=== PATIENT | female | born 1945 ===

== ENCOUNTER → 2017-10-17 | Day surgery (SDC) | payer OTHER ==
[2017-09-06 13:30] VITALS: Ht 161.3 cm; Wt 63.6 kg
[~2017-10-17] VITALS: Ht 161.3 cm; Wt 63.6 kg
[~2017-10-17] MED LIST: 500ML BSS 0.3ML EPI 1:1000PF IRRIG ONE; ACETAMINOPHEN 325 MG TAB PO PRN; AMVISC PLUS 0.8ML SYRINGE INT OCU ONE; ASPI81TA28 PO; ATOR-22 PO; ATROPINE SULFATE 0.1 MG/ML 5ML SYR IV PRN; BSS FLUSH ONE; CALC1TAB56 PO; EpHEDrine SULFATE INJ 50 MG/ML AMP IV PRN; EpINEphrine INJ 1MG/ML AMP 1 MG/ML AMP ONE; FLUT0.15; GLUCTAB7 PO; LACTATED RINGER'S 1000ML 500 ML IV SCH; LEVO88TA3 PO; LIDOCAINE 3.5% OPH GEL PER APPLICATION CHARGE ONE; LIDOCAINE HCL 1% MPF 2 ML VIAL ONE; MIDAZOLAM HCL 1 MG/ML 2ML VIAL ONE; MULTTAB58 PO; ONDANSETRON INJ 2 MG/ML 2 ML VIAL ONE; POVIDONE-IODINE OP SOLN 30 ML BTL ONE; PROPARACAINE 0.5% OP SOLN PER DROP CHARGE OPR SCH; SODIUM CHLORIDE 0.9% 500ML IV SCH; TOBRAMYCIN/DEXAMETHASONE OPH OINT PER APPLN CHARGE ONE
[2017-10-17] MEDS: PHENYLEPHRINE HCL 2.5% OP SOLN PER DROP CHARGE OPR SCH ×2 (09:25→09:30)
[2017-10-17] MEDS: TROPICAMIDE 1% OP SOLN PER DROP CHARGE OPR SCH ×2 (09:26→09:31)
[2017-10-17] MEDS: CYCLOPENTOLATE HCL 1% OP SOLN PER DROP CHARGE OPR SCH ×2 (09:27→09:32)
[2017-10-17] MEDS: KETOROLAC 0.5% OP SOLN PER DROP CHARGE OPR SCH ×2 (09:28→09:33)
[2017-10-17] MEDS: GATIFLOXACIN OP SOLN PER DROP CHARGE OPR SCH ×2 (09:29→09:40)
--- NOTE | 2017-10-17 10:18 | History & Physical Bridge - SC ---
H&P Re-Evaluation Bridge Note: I have examined the patient, reviewed the History & Physical and in the interval since the performance of the History & Physical I have noted the following changes of clinical significance: Diagnosis: Right Cataract Procedure: Right Cataract Removal with Lens Implant No changes noted
--- NOTE | 2017-10-17 10:57 | [facility] Operative Report ---
Operative Report Date of Service Oct 17, 2017. Operative Report 1. PREOPERATIVE DIAGNOSIS: Cataract of the right eye. 2. POSTOPERATIVE DIAGNOSIS: Same. 3. PROCEDURE: Phacoemulsification with intraocular lens implantation of the right eye. SURGEON: Dr. Jordan Andres. ANESTHESIA: Topical Lidocaine gel, 1% Non- Preserved intracameral Lidocaine, and monitored intravenous sedation. INDICATIONS FOR THE PROCEDURE: The patient is a 72 - year-old female with a history of cataract of the right eye causing significant visual impairment. The details of the proposed procedure were explained to the patient who asked appropriate questions and following discussion of all risks, benefits and alternatives agreed to have the procedure done. 4. OPERATION AND FINDINGS: DESCRIPTION OF PROCEDURE: After informed consent was obtained, the patient was brought to the Operating Room at the [facility]. The patient was placed in a supine position and then the right eye was prepped and draped in the usual sterile fashion for intraocular surgery. A drop of topical Lidocaine gel was placed in the operative eye. A wire lid speculum was then placed in the fornices. A corneal paracentesis was then created temporally. The Non-Preserved Lidocaine was then instilled into the anterior chamber. The anterior chamber was then pressurized with viscoelastic. A 2.0 mm clear corneal incision was then created temporally. A cystotome was inserted into the anterior chamber and used to create a tear in the anterior lens capsule. This capsular tear was then used to create a small flap and the flap was dragged in a counterclockwise direction in order to create a continuous curvilinear capsulorrhexis. Hydrodissection was accomplished with balanced salt solution. Phacoemulsification of the lens nucleus was then performed in a standard [id number] technique. The phaco time was 15 seconds with an average power of 12 %. The remaining cortical material was removed using irrigation aspiration. The capsular bag was then filled with viscoelastic. A [employer] Lomb MI60L +14.0 diopters lens was then loaded into the injector and injected into the capsular bag. The remaining viscoelastic was removed with the irrigation aspiration handpiece. The wound was hydrated and then checked and found to be watertight. The intraocular pressure was checked and found to be adequate. The wire lid speculum was removed and the patient's face was cleaned and dried. TobraDex ointment was placed in the inferior fornix. The patient was discharged to the Recovery Room having tolerated the procedure well. There were no complications. The patient will be seen tomorrow in the office for follow-up. I attest to the content of the Intraoperative Record and any orders documented therein. Any exceptions are noted below.
--- NOTE | 2017-10-17 10:58 | Discharge Instructions-SurgCtr ---
Discharge Instructions Date of Service Oct 17, 2017. Visit Reason for Visit: Cataract Right Eye Discharge Discharge Diagnosis / Problem: cataract Discharge Goals Goal(s): Improve function Medications Stopped Medications Name(s): ASA Last dose on Activity Recommendations Activity Limitations: per Instructions/Follow-up section Anesthesia . Post Anesthesia Instructions: If you have had General Anesthesia or IV Sedation: * Do not drive today. * Resume driving when surgeon permits. * Do not make important decisions or sign legal documents today. * Call surgeon for: 1. Temperature elevations greater than 101 degrees F. 2. Uncontrollable pain. 3. Excessive bleeding. 4. Persistent nausea and vomiting. 5. Medication intolerance (nausea, vomiting or rash). * For nausea and vomiting use only clear liquids such as: tea, soda, bouillon until nausea subsides, then gradually increase diet as tolerated. * If you have any concerns or questions, call your surgeon's office. If physician is unavailable and it is an emergency, call 911 or go to the nearest emergency room. . Diet Recommendations Home Diet: resume previous diet Procedures Procedures Performed: Right Cataract Phacoemulsification With Intraocular Lens Implant Pending Studies Studies pending at discharge: no Medical Emergencies . Who to Call and When: Medical Emergencies: If at any time you feel your situation is an emergency, please call 911 immediately. . Non-Emergent Contact Non-Emergency issues call your: Adjunct Instructor Of Women'[employer] Studies . . "Provider Documentation" section prepared by Jordan Andres. .
[2017-10-17 10:59] VITALS: TEMP 36.6
--- NOTE | 2017-10-17 11:16 | Anesthesiology Progress Note ---
Anesthesia Post Op Note Date & Time Oct 17, 2017 at 11:16 Vital Signs Pain Intensity: 0 Vital Signs Past 12 Hours Date Time Temp Pulse Resp B/P (MAP) Pulse Ox O2 Delivery O2 Flow Rate FiO2 10/17/17 10:59 36.6 82 12 108/72 (84) 96 Room Air 10/17/17 09:20 36.9 82 18 150/86 (107) 97 Room Air Notes Mental Status: alert / awake / arousable, participated in evaluation Pt Amnestic to Procedure: Yes Nausea / Vomiting: adequately controlled Pain: adequately controlled Airway Patency, RR, SpO2: stable & adequate BP & HR: stable & adequate Hydration State: stable & adequate Anesthetic Complications: no major complications apparent
[2017-10-17 11:26] VITALS: BP 117/77; PULSE 78; O2SAT 96
== END | disposition home or self-care (01) ==
LOC: X.SURG 08:45
PROVIDERS: ATTEND Ophthalmology
DX: H26.9 Unspecified cataract (principal); J45.909 Unspecified asthma, uncomplicated; M19.90 Unspecified osteoarthritis, unspecified site; E03.9 Hypothyroidism, unspecified; E78.5 Hyperlipidemia, unspecified; Z95.0 Presence of cardiac pacemaker; Z79.899 Other long term (current) drug therapy; Z79.82 Long term (current) use of aspirin

== ENCOUNTER 2022-10-04 21:00 | Observation (INO) ==
[2022-10-04 22:15] LABS: Basophils # (auto) 0.05 K/uL (0-0.2); Basophils % (auto) 0.7 %; Eosinophils # (auto) 0.25 K/uL (0-0.50); Eosinophils % (auto) 3.3 %; Hematocrit (blood only) 41.8 % (37.0-47.0); Hemoglobin 14.6 g/dl (12.0-16.0); Immature Granulocytes # (auto) 0.01 K/uL (0.01-0.20); Immature Granulocytes % (auto) 0.1 %; Lymphocytes # (auto) 1.18 K/uL (1.2-3.4); Lymphocytes % (auto) 15.4 %; Mean Corpuscular Hemoglobin 31.6 pg (25.0-34.0); Mean Corpuscular Hgb Conc 34.9 g/dL (32.0-36.0); Mean Corpuscular Volume 90.5 fL (80.0-100.0); Mean Platelet Volume 10.6 fL (9.4-12.4); Monocytes # (auto) 0.52 K/uL (0.11-0.59); Monocytes % (auto) 6.8 %; Neutrophils # (auto) 5.63 K/uL (1.40-6.50); Neutrophils % (auto) 73.7 %; Platelet Count 165 K/uL (130-400); RDW Coefficient of Variation 13.3 % (11.5-14.5); RDW Standard Deviation 44.3 fL (36.4-46.3); Red Blood Count 4.62 M/uL (4.20-5.40); White Blood Count 7.64 K/ul (4.8-10.8)
[2022-10-04 22:24] LABS: Albumin Globulin Ratio 1.4 (0.9-2); Albumin Level 4.6 gm/dl (3.4-5.0); BUN Creatinine Ratio 16.3 (10-20); Bilirubin,Total 0.8 mg/dl (0.2-1.0); Calcium 9.7 mg/dl (8.6-10.3); Creatinine Clr Calc Pharmacy 51.2 ml/min; Est GFR (African American) 76.1 ml/min; Est GFR (Non-African American) 65.6 ml/min; Globulin 3.2 gm/dl (2.5-4.0); Potassium 3.7 mmol/L (3.5-5.1); Total Protein 7.8 gm/dl (6.0-8.3)
--- NOTE | 2022-10-04 22:36 | Emergency Department Note ---
History of Present Illness General Chief complaint: Syncope (Near Syncope) Stated complaint: HOT,SWEATY,DIZZY,HAD PACEMAKER WORKED ON Time Seen by Provider: 10/04/22 22:04 History of Present Illness This is a 77-year-old female presenting to the emergency department for evaluation of lightheadedness and near syncope. Patient has a history of similar symptoms in the past and has a pacemaker in place. The pacemaker was placed 10 or 11 years ago, and battery was at end-of-life. She had the battery replaced earlier today at this facility by Dr. Susana Hamilton. The patient did well perioperative phase and was discharged home. The patient ate dinner this evening around 7 PM and reports having a roughly 5-minute episode where she felt like she may faint. This has resolved on arrival to the ER. Patient has not had any known fevers or chills today. She feels like she is breathing as normal. She has some soreness at the surgical site where the battery was replaced, but no other distinct pains. Home Medications Medication Instructions Recorded Confirmed Type aspirin 81 mg chewable tablet 81 mg PO QAM 10/25/17 10/04/22 History fluticasone propionate 50 2 spray intranasal QAM 10/25/17 10/04/22 History mcg/actuation nasal spray,suspension (Flonase Allergy Relief) multivitamin 1 tab PO DAILY 10/25/17 10/04/22 History atorvastatin 40 mg tablet 40 mg PO QAM 10/04/22 10/04/22 History calcium carbonate 600 mg-vitamin 1 cap PO DAILY 10/04/22 10/04/22 History D3 12.5 mcg (500 unit) capsule (Calcium 600 with Vitamin D3) ibuprofen 200 mg tablet 200 mg PO Q6H PRN Pain 10/04/22 10/04/22 History levothyroxine 75 mcg tablet 75 mcg PO DAILYBB 10/04/22 10/04/22 History loratadine 10 mg capsule 10 mg PO QAM 10/04/22 10/04/22 History Allergies Allergy/AdvReac Type Severity Reaction Status Date / Time No Known Drug Allergies Allergy Unknown . 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 Brasher (device at home checking device) Purple Blue Botronic Syncope Surgical History History of cataract surgery rt eye History of colonoscopy History of open reduction and internal fixation (ORIF) procedure left tib/fib History of tonsillectomy History of tooth extraction Family History Mother Family history of diabetes mellitus Brother Family history of diabetes mellitus Other Family hx of colon cancer Social History Smoking Status: Never smoker Second Hand Exposure: No; Do You Dip or Chew Tobacco: No; Hx Alcohol Use: No Hx Substance Use: No Preferred Language: Trinidadian Communication Ability: Effective [employer]aling [employer] Operator Required: No Beliefs That Will Affect Care: None Current Living Situation: Alone Other Information That Helps Us Care for You: No Feels Safe at Home: Yes Safety Concerns: Feels Safe At This Time Assistive Devices: None Review of Systems A total of 10 systems reviewed and were otherwise negative Physical Exam Vital Signs Vital Signs - 24 hr 10/04/22 21:54 10/04/22 21:53 10/04/22 21:53 Pulse Rate 72 74 Pulse Rate [Apical] 75 Pulse Rate from SpO2 Sensor 74 Pulse Rhythm [Apical] Regular Pulse Strength [Apical] Normal Respiratory Rate 19 20 Respiratory Effort / Characteristics Non-Labored Respiratory Depth Normal Respiratory Pattern Regular Blood Pressure Blood Pressure [Right Arm] 164/86 H Blood Pressure Mean Blood Pressure Mean [Right Arm] 112 Blood Pressure Position [Right Arm] Sitting Pulse Oximetry 96 96 Oxygen Delivery Method Room Air 10/04/22 22:00 10/04/22 22:30 10/04/22 23:01 Pulse Rate 78 72 Pulse Rate [Apical] Pulse Rate from SpO2 Sensor 75 72 Pulse Rhythm [Apical] Pulse Strength [Apical] Respiratory Rate 17 16 Respiratory Effort / Characteristics Non-Labored Respiratory Depth Normal Respiratory Pattern Blood Pressure 145/82 H Blood Pressure [Right Arm] Blood Pressure Mean 103 Blood Pressure Mean [Right Arm] Blood Pressure Position [Right Arm] Pulse Oximetry 96 95 Oxygen Delivery Method 10/04/22 23:09 10/04/22 23:30 Pulse Rate 77 78 Pulse Rate [Apical] Pulse Rate from SpO2 Sensor 77 80 Pulse Rhythm [Apical] Pulse Strength [Apical] Respiratory Rate 20 19 Respiratory Effort / Characteristics Respiratory Depth Respiratory Pattern Blood Pressure 146/93 H 136/98 Blood Pressure [Right Arm] Blood Pressure Mean 110 110 Blood Pressure Mean [Right Arm] Blood Pressure Position [Right Arm] Pulse Oximetry 95 94 Oxygen Delivery Method VITALS: Vitals are noted on the nurse's note and reviewed by myself. Vital signs stable. GENERAL: Well-developed, well-nourished, white female, who is in no acute distress and resting comfortably. Patient is cooperative with the examination. HEAD: Normocephalic atraumatic. NECK: Supple without nuchal rigidity. No lymphadenopathy. No thyromegaly. Cervical spine is nontender. HEART: Regular rate and rhythm without murmurs gallops or rubs. LUNGS: Clear to auscultation bilaterally without wheezes, rales or rhonchi. No retractions or accessory muscle use. ABDOMEN: Positive normal bowel sounds x 4. Soft, nontender, without masses or organomegaly. No guarding or rebound tenderness. MUSCULOSKELETAL: No muscle atrophy, erythema, or edema noted. Full range of motion in all extremities. Course Administered Medications Discontinued Medications Acetaminophen (Acetaminophen 325 Mg Tab) 650 mg PO Q4H PRN PRN Reason: Pain or Fever Stop: 11/04/22 00:46 Last Admin: 10/05/22 09:17 Dose: 650 mg Documented By: MAXINE Aspirin (Aspirin 81 Mg Ectab) 81 mg PO [facility] Stop: 11/04/22 08:59 Last Admin: 10/05/22 09:15 Dose: 81 mg Documented By: MAXINE Atorvastatin Calcium (Atorvastatin 40 Mg Tab) 40 mg PO [facility] Stop: 11/04/22 08:59 Last Admin: 10/05/22 09:15 Dose: 40 mg Documented By: MAXINE Calcium/Vitamin D (Calcium 600mg + Vit D 400 Iu Tab) 1 tab PO DAILY [facility] Stop: 11/04/22 08:59 Last Admin: 10/05/22 09:15 Dose: 1 tab Documented By: MAXINE Fluticasone Propionate (Fluticasone Propionate Na Spr 16 Gm Btl) 2 sprays [facility] Stop: 11/04/22 08:59 Last Admin: 10/05/22 09:16 Dose: 2 sprays Documented By: MAXINE Sodium Chloride (Nss 1000ml) 1,000 mls @ 80 mls/hr IV .[id number] JACQUELYN Stop: 11/04/22 00:46 Last Infusion: 10/05/22 12:54 Dose: 0 mls/hr Documented By: Admin: 10/05/22 01:00 Dose: 80 mls/hr Documented By: MAGALY Levothyroxine Sodium (Levothyroxine Sodium 75 Mcg Tablet) 75 mcg PO DAILYBB [facility] Stop: 11/04/22 06:29 Last Admin: 10/05/22 05:38 Dose: 75 mcg Documented By: MAGALY Loratadine (Loratadine 10 Mg Tab) 10 mg PO QAM [facility] Stop: 11/04/22 08:59 Last Admin: 10/05/22 09:15 Dose: 10 mg Documented By: MAXINE Multivitamins (Multivitamin Tab) 1 tab PO DAILY JACQUELYN Stop: 11/04/22 08:59 Last Admin: 10/05/22 09:15 Dose: 1 tab Documented By: MAXINE Medical Decision Making Differential Diagnosis Differential diagnosis includes, but is not limited to: Myocardial infarction, dysrhythmia, pericarditis, pneumothorax, aortic aneurysm/dissection, DVT/PE, anxiety, GERD, PUD, electrolyte imbalance, thyroid disorder, pneumonia, bronchitis, pancreatitis, and others Laboratory Data 10/04/22 21:45 10/04/22 21:45 Lab Results 10/04/22 10/04/22 10/04/22 Range/Units 21:45 21:45 23:12 WBC 7.64 (4.8-10.8) K/ul RBC 4.62 (4.20-5.40) M/uL Hgb 14.6 (12.0-16.0) g/dl Hct 41.8 (37.0-47.0) % MCV 90.5 (80.0-100.0) fL MCH 31.6 (25.0-34.0) pg MCHC 34.9 (32.0-36.0) g/dL RDW Std Deviation 44.3 (36.4-46.3) fL RDW Coeff of Anitha 13.3 (11.5-14.5) % Plt Count 165 (130-400) K/uL MPV 10.6 (9.4-12.4) fL Immature Gran % (Auto) 0.1 % Neut % (Auto) 73.7 % Lymph % (Auto) 15.4 % Travis % (Auto) 6.8 % Eos % (Auto) 3.3 % Baso % (Auto) 0.7 % Neut # (Auto) 5.63 (1.40-6.50) K/uL Lymph # (Auto) 1.18 L (1.2-3.4) K/uL Travis # (Auto) 0.52 (0.11-0.59) K/uL Eos # (Auto) 0.25 (0-0.50) K/uL Baso # (Auto) 0.05 (0-0.2) K/uL Immature Gran # (Auto) 0.01 (0.01-0.20) K/uL Sodium 140 (136-145) mmol/L Potassium 3.7 (3.5-5.1) mmol/L Chloride 106 (98-107) mmol/L Carbon Dioxide 26 (21-32) mmol/L Anion Gap 8 (3-11) BUN 14 (6-23) mg/dl Creatinine 0.86 (0.6-1.2) mg/dl Est Cr Clr Drug Dosing 51.2 ml/min Est GFR ( Amer) 76.1 ml/min Est GFR (Non-Af Amer) 65.6 ml/min BUN/Creatinine Ratio 16.3 (10-20) Glucose 127 H (70-99(Fasting)) mg/dl Calcium 9.7 (8.6-10.3) mg/dl Total Bilirubin 0.8 (0.2-1.0) mg/dl AST 23 (13-39) U/L ALT 15 (7-52) U/L Alkaline Phosphatase 81 (34-104) U/L Troponin I High Sens 3.1 (0-14) pg/ml Total Protein 7.8 (6.0-8.3) gm/dl Albumin 4.6 (3.4-5.0) gm/dl Globulin 3.2 (2.5-4.0) gm/dl Albumin/Globulin Ratio 1.4 (0.9-2) Urine Color Yellow Urine Appearance Clear (Clear) Urine pH 6.0 (4.5-7.5) Ur Specific [place] 1.013 (1.000-1.030) Urine Protein Negative (Negative) Urine Glucose (UA) Negative (Negative) Urine Ketones Negative (Negative) Urine Blood Negative (Negative) Urine Nitrite Negative (Negative) Urine Bilirubin Negative (Negative) Urine Urobilinogen Negative (Negative) Ur Leukocyte Esterase Trace H (Negative) Urine WBC (Auto) 5-10 H (0-5) /hpf Urine RBC (Auto) 0-4 (0-4) /hpf U Hyaline Cast (Auto) 1-5 (0-5) /lpf U Epithel Cells (Auto) 20-30 H (0-5) /lpf Urine Bacteria (Auto) Negative (Negative) Imaging Data Radiologist's Impression: Chest X-Ray 10/04/22 22:49 XR chest 1V portable HISTORY: palpitations COMPARISON: None. FINDINGS: No pneumothorax. No pleural effusions. The cardiac silhouette is borderline enlarged. Is left-sided dual-chamber pacemaker. No focal lung consolidations to suggest a pneumonia. There is mild central pulmonary vascular congestion without overt edema. No acute fractures identified. IMPRESSION: Cardiomegaly with mild central pulmonary vascular congestion without overt edema. ACT 112: Negative or not required by law. Electronically signed by: Brett Duque M.D. 10/05/2022 7:11 AM MDM Narrative Physical exam and history were performed. Nursing notes, EMR, and Medication List were personally reviewed. No social concerns were identified as barriers to patients care. Patient appears to have lightheadedness versus near syncopal episode this evening around dinnertime. She did have the generator changed on her pacemaker earlier today. On arrival to the ER she does not appear toxic. Vital signs are stable. IV access was established and labs were obtained. EKG was without acute ST elevation. An order was placed for continuous cardiac monitoring. The monitor shows a rate of 72 with normal sinus rhythm. Patient's blood work is as above and was reviewed. She does not have a significantly elevated white blood cell count, gross anemia, bandemia, or significant electrolyte imbalance. Transaminases are not diagnostic. Troponin x 1 is negative. Case was discussed with the on-call [facility] it integration architect, Dr. Johnson, who recomm ends bringing the patient in for observation overnight. The cardiology team will be involved with the patient's care in the morning to generate additional recommendations. I did speak with the [facility] team who agreed to evaluate the patient here in the ER. Please see their dictation for further patient course, plan, disposition. The chart was completed utilizing [employer] Voice Recognition Software. Grammatical errors, random word insertions, pronoun errors, and incomplete sentences are an occasional consequence of this system due to software limitations, ambient noise, and hardware issues. Any formal questions or concerns about the content, text, or information contained within the body of this dictation should be directly addressed to the provider for clarification. . Impression & Plan Near syncope, Pacemaker Discharge Plan Visit Data Chief Complaint: Syncope (Near Syncope) Stated Complaint: HOT,SWEATY,DIZZY,HAD PACEMAKER WORKED ON ED Provider: Sai Smith ED Midlevel Provider: Ranjeet Ashford Discharge Problem: Near syncope, Pacemaker Patient Disposition: Admitted As Inpatient Discharge Instructions Interventions: ED Discharge Assessment Last Done: 10/05/22 00:24
[2022-10-04 23:10] LABS: Troponin I High Sensitivity 3.1 pg/ml (0-14)
--- NOTE | 2022-10-05 00:11 | History & Physical Report ---
Date of Service October 04, 2022 Assessment & Plan (1) Near syncope: Plan: 77-year-old female with past med significant for hypothyroidism, hyperlipidemia, prediabetes, chronic sinusitis, history of syncope and s/p pacemaker had battery change today for the pacemaker did fine and was discharged home and comes back with presyncope Near syncope S/p pacemaker battery change today History of syncope in the past for which she had pacemaker EKG looks okay Labs look okay Currently doing fine We will monitor on telemetry floor Follow repeat labs in a.m. Consult cardiology in a.m. Gentle fluids Check orthostatics N.p.o. until seen by cardiology Prediabetes We will check HbA1c levels Hypothyroidism on Synthyroid Hyperlipidemia on statin DVT prophylax SCDs Disposition observation telemetry floor Full code History of Present Illness Chief Complaint: Near syncope Primary Care Provider: Yamini Piper MD 77-year-old female with past med significant for hypothyroidism, hyperlipidemia, prediabetes, chronic sinusitis, history of syncope and s/p pacemaker had battery change today for the pacemaker did fine and was discharged home and comes back with presyncope. Patient says she ate a dinner after that she was sitting on chair when she felt like passing she laid on the bed but it did not improve she called her neighbor and the feeling of passing out lasted for 5 minutes. Next ext 15 minutes she felt like dizzy and of that she felt like the spaced out. By time she came to the ER symptoms subsided. She was able to ambulate in the ER room okay. Denies any chest pain except for some soreness at pacemaker site. No shortness of breath. No nausea. No sweating. No headaches. No blurred visions or earache or runny nose. No cough. No fevers. No abdominal. Normal bowel and bladder movements. Currently resting comfortably and hemodynamically stable. Allergies Allergy/AdvReac Type Severity Reaction Status Date / Time No Known Drug Allergies Allergy Unknown . Verified 10/04/22 07:27 Home Medications Medication Instructions Recorded Confirmed Type aspirin 81 mg chewable tablet 81 mg PO QAM 10/25/17 10/04/22 History fluticasone propionate 50 2 spray intranasal QAM 10/25/17 10/04/22 History mcg/actuation nasal spray,suspension (Flonase Allergy Relief) multivitamin 1 tab PO DAILY 10/25/17 10/04/22 History atorvastatin 40 mg tablet 40 mg PO QAM 10/04/22 10/04/22 History calcium carbonate 600 mg-vitamin 1 cap PO DAILY 10/04/22 10/04/22 History D3 12.5 mcg (500 unit) capsule (Calcium 600 with Vitamin D3) ibuprofen 200 mg tablet 200 mg PO Q6H PRN Pain 10/04/22 10/04/22 History levothyroxine 75 mcg tablet 75 mcg PO DAILYBB 10/04/22 10/04/22 History loratadine 10 mg capsule 10 mg PO QAM 10/04/22 10/04/22 History Past Med/Surg History Medical History Asthma as a child/no problems now Hyperlipidemia Hypothyroidism Migraine "flashing headaches" Osteoarthritis Pacemaker pacemaker implanted 2011/ d/t "low bp and passing out" followed by Dr. 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 ENT- oropharynx clear Neck- supple, no JVD. Lungs- clear to auscultation and percussion, no added sounds. Heart- regular rate rhythm; no murmur, no gallop. dressing seen at pacemaker site. Abdomen- normal bowel sounds, soft, nontender, no distension. Extremities- no pretibial edema, no erythema seen Neuro- alert, oriented x 3; PERRL, no facial palsy; no dysarthria;obeys commands and moves extremities. Skin- warm & dry Results & Data Results & Data Vital Signs (Past 12 Hours) Vital Signs Temp Pulse Pulse Resp BP BP Pulse Ox 10/04/22 22:30 72 16 145/82 H 95 10/04/22 22:00 78 17 96 10/04/22 21:53 74 20 96 10/04/22 21:53 72 10/04/22 21:54 75 19 164/86 H 96 10/04/22 21:13 36.3 C L 81 20 147/85 H 97 O2 Del Method 10/04/22 22:30 10/04/22 22:00 10/04/22 21:53 10/04/22 21:53 10/04/22 21:54 Room Air 10/04/22 21:13 Room Air Diagnostic Findings Laboratory Results WBC 7.64 K/ul (4.8-10.8) 10/04/22 21:45 RBC 4.62 M/uL (4.20-5.40) 10/04/22 21:45 Hgb 14.6 g/dl (12.0-16.0) 10/04/22 21:45 Hct 41.8 % (37.0-47.0) 10/04/22 21:45 MCV 90.5 fL (80.0-100.0) 10/04/22 21:45 MCH 31.6 pg (25.0-34.0) 10/04/22 21:45 MCHC 34.9 g/dL (32.0-36.0) 10/04/22 21:45 RDW Std Deviation 44.3 fL (36.4-46.3) 10/04/22 21:45 RDW Coeff of Anitha 13.3 % (11.5-14.5) 10/04/22 21:45 Plt Count 165 K/uL (130-400) 10/04/22 21:45 MPV 10.6 fL (9.4-12.4) 10/04/22 21:45 Immature Gran % (Auto) 0.1 % 10/04/22 21:45 Neut % (Auto) 73.7 % 10/04/22 21:45 Lymph % (Auto) 15.4 % 10/04/22 21:45 Moore % (Auto) 6.8 % 10/04/22 21:45 Eos % (Auto) 3.3 % 10/04/22 21:45 Baso % (Auto) 0.7 % 10/04/22 21:45 Neut # (Auto) 5.63 K/uL (1.40-6.50) 10/04/22 21:45 Lymph # (Auto) 1.18 K/uL (1.2-3.4) L 10/04/22 21:45 Moore # (Auto) 0.52 K/uL (0.11-0.59) 10/04/22 21:45 Eos # (Auto) 0.25 K/uL (0-0.50) 10/04/22 21:45 Baso # (Auto) 0.05 K/uL (0-0.2) 10/04/22 21:45 Immature Gran # (Auto) 0.01 K/uL (0.01-0.20) 10/04/22 21:45 Sodium 140 mmol/L (136-145) 10/04/22 21:45 Potassium 3.7 mmol/L (3.5-5.1) 10/04/22 21:45 Chloride 106 mmol/L (98-107) 10/04/22 21:45 Carbon Dioxide 26 mmol/L (21-32) 10/04/22 21:45 Anion Gap 8 (3-11) 10/04/22 21:45 BUN 14 mg/dl (6-23) 10/04/22 21:45 Creatinine 0.86 mg/dl (0.6-1.2) 10/04/22 21:45 Est Cr Clr Drug Dosing 51.2 ml/min 10/04/22 21:45 Est GFR ( Amer) 76.1 ml/min 10/04/22 21:45 Est GFR (Non-Af Amer) 65.6 ml/min 10/04/22 21:45 BUN/Creatinine Ratio 16.3 (10-20) 10/04/22 21:45 Glucose 127 mg/dl (70-99(Fasting)) H 10/04/22 21:45 Calcium 9.7 mg/dl (8.6-10.3) 10/04/22 21:45 Total Bilirubin 0.8 mg/dl (0.2-1.0) 10/04/22 21:45 AST 23 U/L (13-39) 10/04/22 21:45 ALT 15 U/L (7-52) 10/04/22 21:45 Alkaline Phosphatase 81 U/L (34-104) 10/04/22 21:45 Troponin I High Sens 3.1 pg/ml (0-14) 10/04/22 21:45 Total Protein 7.8 gm/dl (6.0-8.3) 10/04/22 21:45 Albumin 4.6 gm/dl (3.4-5.0) 10/04/22 21:45 Globulin 3.2 gm/dl (2.5-4.0) 10/04/22 21:45 Albumin/Globulin Ratio 1.4 (0.9-2) 10/04/22 21:45 ECG Additional Comments: ECG normal sinus rhythm rate 72. Possible left atrial enlargement. Incomplete right bundle branch block Code Status & VTE Plan VTE Prophylaxis Plan VTE Prophylaxis will be ordered: Yes
[2022-10-05 00:45] LABS: Appearance Urine Clear (Clear); Bacteria Urine Automated Negative (Negative); Bilirubin Urine Negative (Negative); Blood Urine Negative (Negative); Color Urine Yellow; Epithelial Cell Urine Auto 20-30 /lpf (0-5); Glucose Urine UA Negative (Negative); Ketones Urine Negative (Negative); Leukocyte Esterase Urine Trace (Negative); Nitrite Urine Negative (Negative); Protein Urine Negative (Negative); RBC Urine Automated 0-4 /hpf (0-4); Specific Gravity Urine 1.013 (1.000-1.030); Urobilinogen Urine Negative (Negative)
[2022-10-05] MEDS ORDERED: NITROGLYCERIN SL 0.4 MG/TAB TAB SL PRN (00:47)
[2022-10-05] MEDS ORDERED: ACETAMINOPHEN 325 MG TAB PO PRN (00:47)
[2022-10-05] MEDS ORDERED: SODIUM CHLORIDE 0.9% 1000ML 1,000 ML IV SCH (00:47)
[2022-10-05] MEDS ORDERED: LEVOTHYROXINE SODIUM 75 MCG TABLET PO SCH (06:30)
[2022-10-05 06:33] LABS: Basophils # (auto) 0.07 K/uL (0-0.2); Basophils % (auto) 1.1 %; Eosinophils # (auto) 0.24 K/uL (0-0.50); Eosinophils % (auto) 3.9 %; Hematocrit (blood only) 38.6 % (37.0-47.0); Hemoglobin 12.8 g/dl (12.0-16.0); Immature Granulocytes # (auto) 0.06 K/uL (0.01-0.20); Lymphocytes # (auto) 1.38 K/uL (1.2-3.4); Lymphocytes % (auto) 22.3 %; Mean Corpuscular Hemoglobin 30.5 pg (25.0-34.0); Mean Corpuscular Hgb Conc 33.2 g/dL (32.0-36.0); Mean Corpuscular Volume 91.9 fL (80.0-100.0); Mean Platelet Volume 10.8 fL (9.4-12.4); Monocytes # (auto) 0.58 K/uL (0.11-0.59); Monocytes % (auto) 9.4 %; Neutrophils # (auto) 3.87 K/uL (1.40-6.50); Neutrophils % (auto) 62.3 %; Platelet Count 149 K/uL (130-400); RDW Coefficient of Variation 13.2 % (11.5-14.5); RDW Standard Deviation 44.5 fL (36.4-46.3)
[2022-10-05 06:37] LABS: BUN Creatinine Ratio 17.1 (10-20); Creatinine Clr Calc Pharmacy 56.9 ml/min; Est GFR (African American) 88.3 ml/min; Est GFR (Non-African American) 76.2 ml/min; Magnesium 2.2 mg/dl (1.7-2.4); Potassium 3.9 mmol/L (3.5-5.1)
[2022-10-05 06:43] LABS: Troponin I High Sensitivity 5.3 pg/ml (0-14)
--- NOTE | 2022-10-05 07:12 | XRay Report ---
XR chest 1V portable HISTORY: palpitations COMPARISON: None. FINDINGS: No pneumothorax. No pleural effusions. The cardiac silhouette is borderline enlarged. Is le ft-sided dual-chamber pacemaker. No focal lung consolidations to suggest a pneumonia. There is mild c entral pulmonary vascular congestion without overt edema. No acute fractures identified. IMPRESSION: Cardiomegaly with mild central pulmonary vascular congestion without overt edema. ACT 112: Negative or not required by law. Electronically signed by: Brett Duque M.D. 10/05/2022 7:11 AM
--- NOTE | 2022-10-05 07:36 | Cardiology Consultation ---
Date of Consultation October 05, 2022 Assessment & Plan (1) Near syncope: (2) Pacemaker: Plan Please refer to physician addendum for further information as well as full plan of care. Supervising Physician Co-Signing Physician Notes Attending Staff: Pt seen and examined with [facility] staff. Concur with observations and plans. 55 minutes spent addressing challenges, educating and advancing daily plan of care. 77 yo woman presenting with presyncopal episodes s/p Pacemaker Generator Change. Generator change for dual chamber pacer on 10/04/2022 No complications reported Pt discharged to home Walked dog Ate [place] warm and diaphoretic + presyncopal Laid on couch Called neighbor Brought into [facility] for evaluation EKG - no ischemic Troponin WNL CXR - no PTX No new leads placed Admitted to Obs Telemetry - no arrhythmias, no pauses Plans: Interrogation of pacer Ambulation with observation F/U with Dr Hamilton in clinic [facility] History of Present Illness Reason for Consultation: Near syncope [facility]ing Phys[facility] Attending Physician: Miquel Yusuf MD History of Present Illness 77-year-old female with history of possible vasovagal syncope status post permanent pacemaker implantation 03/2011. Recently underwent generator change yesterday, 10/04. Discharged home same day and return to the emergency department due to an episode of near syncope. EKG showing normal sinus rhythm in the 70s. 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 Day and Dr. Hamilton (EP) Past medical history: Syncope, possibly vasovagal status post dual-chamber permanent pacemaker 04/27/2011 Pacemaker at [facility] 08/2022, status post generator change 10/04/2022 Carotid artery stenosis, bilateral Prediabetes Hyperlipidemia Hypothyroidism Allergies Allergy/AdvReac Type Severity Reaction Status Date / Time No Known Drug Allergies Allergy Unknown . Verified 10/04/22 07:27 Home Medications Medication Instructions Recorded Confirmed Type aspirin 81 mg chewable tablet 81 mg PO QAM 10/25/17 10/04/22 History fluticasone propionate 50 2 spray intranasal QAM 10/25/17 10/04/22 History mcg/actuation nasal spray,suspension (Flonase Allergy Relief) multivitamin 1 tab PO DAILY 10/25/17 10/04/22 History atorvastatin 40 mg tablet 40 mg PO QAM 10/04/22 10/04/22 History calcium carbonate 600 mg-vitamin 1 cap PO DAILY 10/04/22 10/04/22 History D3 12.5 mcg (500 unit) capsule (Calcium 600 with Vitamin D3) ibuprofen 200 mg tablet 200 mg PO Q6H PRN Pain 10/04/22 10/04/22 History levothyroxine 75 mcg tablet 75 mcg PO DAILYBB 10/04/22 10/04/22 History loratadine 10 mg capsule 10 mg PO QAM 10/04/22 10/04/22 History Patient History Medical History (Updated 10/05/22 @ 07:39 by JANNA Chan) Asthma as a child/no problems now Hyperlipidemia Hypothyroidism Migraine "flashing headaches" Osteoarthritis Pacemaker pacemaker implanted 2011/ d/t "low bp and passing out" followed by Dr. Brasher (device at home checking device) Zong Syncope Surgical History History of cataract surgery rt eye History of colonoscopy History of open reduction and internal fixation (ORIF) procedure left tib/fib History of tonsillectomy History of tooth extraction Family History Mother Family history of diabetes mellitus Brother Family history of diabetes mellitus Other Family hx of colon cancer Social History Smoking Status: Never smoker Second Hand Exposure: No; Do You Dip or Chew Tobacco: No; Hx Alcohol Use: No Hx Substance Use: No Preferred Language: Croatian Communication Ability: Effective Admission Specialist Required: No Beliefs That Will Affect Care: None Current Living Situation: Alone Other Information That Helps Us Care for You: No Feels Safe at Home: Yes Safety Concerns: Feels Safe At This Time Assistive Devices: Glasses and Hearing Aid - Bilateral Review of Systems Review of Systems: All systems reviewed & are unremarkable except as noted in HPI & below Physical Exam Physical Exam: Pt in NAD No elevation in JVP Generator site - dressed No Pocket Hematoma S1S2 2/6 Systolic mumur No LE edema Warm and perfused Results & Data Vital Signs (Past 12 Hours) Vital Signs Temp Pulse Pulse Resp BP BP Pulse Ox 10/05/22 02:55 36.7 C 72 18 117/73 96 10/05/22 01:06 72 10/05/22 00:51 36.6 C 81 18 160/85 H 95 10/05/22 00:00 77 15 175/82 H 96 10/04/22 23:30 78 19 136/98 94 10/04/22 23:09 77 20 146/93 H 95 10/04/22 22:30 72 16 145/82 H 95 10/04/22 22:00 78 17 96 10/04/22 21:53 74 20 96 10/04/22 21:53 72 10/04/22 21:54 75 19 164/86 H 96 10/04/22 21:13 36.3 C L 81 20 147/85 H 97 O2 Del Method 10/05/22 02:55 Room Air 10/05/22 01:06 10/05/22 00:51 Room Air 10/05/22 00:00 10/04/22 23:30 10/04/22 23:09 10/04/22 22:30 10/04/22 22:00 10/04/22 21:53 10/04/22 21:53 10/04/22 21:54 Room Air 10/04/22 21:13 Room Air Laboratory Results Cardiac Enzymes 10/04/22 10/05/22 Range/Units 21:45 05:33 AST 23 (13-39) U/L Troponin I High Sens 3.1 5.3 (0-14) pg/ml CBC 10/04/22 10/05/22 Range/Units 21:45 05:33 WBC 7.64 6.20 (4.8-10.8) K/ul RBC 4.62 4.20 (4.20-5.40) M/uL Hgb 14.6 12.8 (12.0-16.0) g/dl Hct 41.8 38.6 (37.0-47.0) % Plt Count 165 149 (130-400) K/uL Neut # (Auto) 5.63 3.87 (1.40-6.50) K/uL Lymph # (Auto) 1.18 L 1.38 (1.2-3.4) K/uL [place] # (Auto) 0.52 0.58 (0.11-0.59) K/uL Eos # (Auto) 0.25 0.24 (0-0.50) K/uL Baso # (Auto) 0.05 0.07 (0-0.2) K/uL Comprehensive Metabolic Panel 10/04/22 10/05/22 Range/Units 21:45 05:33 Sodium 140 141 (136-145) mmol/L Potassium 3.7 3.9 (3.5-5.1) mmol/L Chloride 106 110 H (98-107) mmol/L Carbon Dioxide 26 24 (21-32) mmol/L BUN 14 13 (6-23) mg/dl Creatinine 0.86 0.76 (0.6-1.2) mg/dl Glucose 127 H 89 (70-99(Fasting)) mg/dl Calcium 9.7 9.0 (8.6-10.3) mg/dl AST 23 (13-39) U/L ALT 15 (7-52) U/L Alkaline Phosphatase 81 (34-104) U/L Total Protein 7.8 (6.0-8.3) gm/dl Albumin 4.6 (3.4-5.0) gm/dl Intake and Output 10/04/22 10/05/22 10/05/22 22:59 06:59 14:59 Other: # Unmeasured Voids 1 Weight 67.1 kg 64.4 kg Weight Measurement Method Built in [facility] Built in [facility]
[2022-10-05] MEDS ORDERED: FLUTICASONE PROPIONATE NA SPR 16 GM BTL SCH (09:00)
[2022-10-05] MEDS ORDERED: ASPIRIN 81 MG ECTAB PO SCH (09:00)
[2022-10-05] MEDS ORDERED: MULTIVITAMIN TAB PO SCH (09:00)
[2022-10-05] MEDS ORDERED: LORATADINE 10 MG TAB PO SCH (09:00)
[2022-10-05] MEDS ORDERED: CALCIUM 600MG + VIT D 400 IU TAB PO SCH (09:00)
[2022-10-05] MEDS ORDERED: ATORVASTATIN 40 MG TAB PO SCH (09:00)
--- NOTE | 2022-10-05 13:31 | Hospitalist Progress Note ---
Date of Service October 05, 2022 Assessment & Plan (1) Near syncope: Plan: Patient is a 77 yr female with H/O hypothyroidism, hyperlipidemia, prediabetes, chronic sinusitis, history of syncope and s/p pacemaker had battery change today for the pacemaker did fine and was discharged home and comes back with presyncope Near syncope likely vasovagal response S/p pacemaker battery change on 10/04/22 H/O Syncope Pacemaker Interrogated: No issues No issues on telemetry Normal orthostatics Appreciate cardiology input Needs follow-up with upon discharge Prediabetes Will need HbA1C as outpatient Hypothyroidism Continue levothyroxine Hyperlipidemia Continue statin DVT Px: SCDs CODE STATUS Full code Disposition Home Admission and Anticipated Discharge Date Admission Date: October 04, 2022 Subjective Patient is seen and examined at bedside States feeling better today Offers no complaints Discussed with patient's daughter at bedside Also discussed with cardiology Denies any chest pain, dyspnea, dizziness, nausea, vomiting, abdominal pain No other complaints plan to be discharged home today Review of Systems Review of Systems: All systems reviewed & are unremarkable except as noted in Subjective Physical Exam Physical Exam: Physical Exam: Vitals signs as noted above General Appearance:Moderately built and nourished, no apparent distress Head: normocephalic, Atraumatic Eyes: normal inspection, EOMI Neck: supple, Trachea midline Respiratory/Chest: Normal breath sounds, CTA, No accessory muscle use Cardiovascular: S1, S2, + murmur,+Pacer Abdomen/GI:Soft, Non tender, Bowel sounds present Extremities/Musculoskeletal:normal inspection, no edema Neurologic/Psych:AAOX3, grossly no focal neurological deficits Skin: normal color, warm Results & Data Results & Data Vital Signs (Past 12 Hours) Vital Signs Temp Pulse Pulse Resp BP Pulse Ox O2 Del Method 10/05/22 10:56 36.7 C 72 18 131/73 96 Room Air 10/05/22 08:00 81 10/05/22 07:56 36.8 C 80 19 136/69 95 Room Air 10/05/22 02:55 36.7 C 72 18 117/73 96 Room Air Laboratory Results Short CBC 10/04/22 10/05/22 Range/Units 21:45 05:33 WBC 7.64 6.20 (4.8-10.8) K/ul Hgb 14.6 12.8 (12.0-16.0) g/dl Hct 41.8 38.6 (37.0-47.0) % Plt Count 165 149 (130-400) K/uL BMP 10/04/22 10/05/22 21:45 05:33 Sodium 140 141 Potassium 3.7 3.9 Chloride 106 110 H Carbon Dioxide 26 24 BUN 14 13 Creatinine 0.86 0.76 Glucose 127 H 89 Calcium 9.7 9.0 Liver Function 10/04/22 Range/Units 21:45 Total Bilirubin 0.8 (0.2-1.0) mg/dl AST 23 (13-39) U/L ALT 15 (7-52) U/L Alkaline Phosphatase 81 (34-104) U/L Albumin 4.6 (3.4-5.0) gm/dl Urine 10/04/22 Range/Units 23:12 Urine Color Yellow Urine Appearance Clear (Clear) Urine pH 6.0 (4.5-7.5) Ur Specific Wirt 1.013 (1.000-1.030) Urine Protein Negative (Negative) Urine Glucose (UA) Negative (Negative)
--- NOTE | 2022-10-05 13:34 | Discharge Summary ---
Date of Service October 05, 2022 Admission HPI Per Admitting Provider 77-year-old female with past med significant for hypothyroidism, hyperlipidemia, prediabetes, chronic sinusitis, history of syncope and s/p pacemaker had battery change today for the pacemaker did fine and was discharged home and comes back with presyncope. Patient says she ate a dinner after that she was sitting on chair when she felt like passing she laid on the bed but it did not improve she called her neighbor and the feeling of passing out lasted for 5 minutes. Next ext 15 minutes she felt like dizzy and of that she felt like the spaced out. By time she came to the ER symptoms subsided. She was able to ambulate in the ER room okay. Denies any chest pain except for some soreness at pacemaker site. No shortness of breath. No nausea. No sweating. No headaches. No blurred visions or earache or runny nose. No cough. No fevers. No abdominal. Normal bowel and bladder movements. Currently resting comfortably and hemodynamically stable. Admission Exam Per Admitting Provider General- Not in distress Head- atraumatic Eyes- PERRL. ENT- oropharynx clear Neck- supple, no JVD. Lungs- clear to auscultation and percussion, no added sounds. Heart- regular rate rhythm; no murmur, no gallop. dressing seen at pacemaker site. Abdomen- normal bowel sounds, soft, nontender, no distension. Extremities- no pretibial edema, no erythema seen Neuro- alert, oriented x 3; PERRL, no facial palsy; no dysarthria;obeys commands and moves extremities. Skin- warm & dry Principal Diagnosis Presyncope Discharge Data Allergies Allergy/AdvReac Type Severity Reaction Status Date / Time No Known Drug Allergies Allergy Unknown . Verified 10/04/22 07:27 Consultations 10/04/22 23:04 ED Decision to Admit Stat 10/05/22 08:00 Consult Cardiology Routine Procedures Performed Laboratory Results WBC 6.20 K/ul (4.8-10.8) 10/05/22 05:33 RBC 4.20 M/uL (4.20-5.40) 10/05/22 05:33 Hgb 12.8 g/dl (12.0-16.0) 10/05/22 05:33 Hct 38.6 % (37.0-47.0) 10/05/22 05:33 MCV 91.9 fL (80.0-100.0) 10/05/22 05:33 MCH 30.5 pg (25.0-34.0) 10/05/22 05:33 MCHC 33.2 g/dL (32.0-36.0) 10/05/22 05:33 RDW Std Deviation 44.5 fL (36.4-46.3) 10/05/22 05:33 RDW Coeff of Anitha 13.2 % (11.5-14.5) 10/05/22 05:33 Plt Count 149 K/uL (130-400) 10/05/22 05:33 MPV 10.8 fL (9.4-12.4) 10/05/22 05:33 Immature Gran % (Auto) 1.0 % 10/05/22 05:33 Neut % (Auto) 62.3 % 10/05/22 05:33 Lymph % (Auto) 22.3 % 10/05/22 05:33 [place] % (Auto) 9.4 % 10/05/22 05:33 Eos % (Auto) 3.9 % 10/05/22 05:33 Baso % (Auto) 1.1 % 10/05/22 05:33 Neut # (Auto) 3.87 K/uL (1.40-6.50) 10/05/22 05:33 Lymph # (Auto) 1.38 K/uL (1.2-3.4) 10/05/22 05:33 [place] # (Auto) 0.58 K/uL (0.11-0.59) 10/05/22 05:33 Eos # (Auto) 0.24 K/uL (0-0.50) 10/05/22 05:33 Baso # (Auto) 0.07 K/uL (0-0.2) 10/05/22 05:33 Immature Gran # (Auto) 0.06 K/uL (0.01-0.20) 10/05/22 05:33 Sodium 141 mmol/L (136-145) 10/05/22 05:33 Potassium 3.9 mmol/L (3.5-5.1) 10/05/22 05:33 Chloride 110 mmol/L (98-107) H 10/05/22 05:33 Carbon Dioxide 24 mmol/L (21-32) 10/05/22 05:33 Anion Gap 7 (3-11) 10/05/22 05:33 BUN 13 mg/dl (6-23) 10/05/22 05:33 Creatinine 0.76 mg/dl (0.6-1.2) 10/05/22 05:33 Est Cr Clr Drug Dosing 56.9 ml/min 10/05/22 05:33 Est GFR ( Amer) 88.3 ml/min 10/05/22 05:33 Est GFR (Non-Af Amer) 76.2 ml/min 10/05/22 05:33 BUN/Creatinine Ratio 17.1 (10-20) 10/05/22 05:33 Glucose 89 mg/dl (70-99(Fasting)) 10/05/22 05:33 Calcium 9.0 mg/dl (8.6-10.3) 10/05/22 05:33 Magnesium 2.2 mg/dl (1.7-2.4) 10/05/22 05:33 Total Bilirubin 0.8 mg/dl (0.2-1.0) 10/04/22 21:45 AST 23 U/L (13-39) 10/04/22 21:45 ALT 15 U/L (7-52) 10/04/22 21:45 Alkaline Phosphatase 81 U/L (34-104) 10/04/22 21:45 Troponin I High Sens 17.1 pg/ml (0-14) H D 10/05/22 11:10 Total Protein 7.8 gm/dl (6.0-8.3) 10/04/22 21:45 Albumin 4.6 gm/dl (3.4-5.0) 10/04/22 21:45 Globulin 3.2 gm/dl (2.5-4.0) 10/04/22 21:45 Albumin/Globulin Ratio 1.4 (0.9-2) 10/04/22 21:45 Urine Color Yellow 10/04/22 23:12 Urine Appearance Clear (Clear) 10/04/22 23:12 Urine pH 6.0 (4.5-7.5) 10/04/22 23:12 Ur Specific [place] 1.013 (1.000-1.030) 10/04/22 23:12 Urine Protein Negative (Negative) 10/04/22 23:12 Urine Glucose (UA) Negative (Negative) 10/04/22 23:12 Urine Ketones Negative (Negative) 10/04/22 23:12 Urine Blood Negative (Negative) 10/04/22 23:12 Urine Nitrite Negative (Negative) 10/04/22 23:12 Urine Bilirubin Negative (Negative) 10/04/22 23:12 Urine Urobilinogen Negative (Negative) 10/04/22 23:12 Ur Leukocyte Esterase Trace (Negative) H 10/04/22 23:12 Urine WBC (Auto) 5-10 /hpf (0-5) H 10/04/22 23:12 Urine RBC (Auto) 0-4 /hpf (0-4) 10/04/22 23:12 U Hyaline Cast (Auto) 1-5 /lpf (0-5) 10/04/22 23:12 U Epithel Cells (Auto) 20-30 /lpf (0-5) H 10/04/22 23:12 Urine Bacteria (Auto) Negative (Negative) 10/04/22 23:12 Impressions Chest X-Ray 10/04/22 22:49 XR chest 1V portable HISTORY: palpitations COMPARISON: None. FINDINGS: No pneumothorax. No pleural effusions. The cardiac silhouette is borderline enlarged. Is left-sided dual-chamber pacemaker. No focal lung consolidations to suggest a pneumonia. There is mild central pulmonary vascular congestion without overt edema. No acute fractures identified. IMPRESSION: Cardiomegaly with mild central pulmonary vascular congestion without overt edema. ACT 112: Negative or not required by law. Electronically signed by: Brett Duque M.D. 10/05/2022 7:11 AM Hospital Course (1) Near syncope: Patient is a 77 yr female with H/O hypothyroidism, hyperlipidemia, prediabetes, chronic sinusitis, history of syncope and s/p pacemaker had battery change today for the pacemaker did fine and was discharged home and comes back with presyncope Near syncope likely vasovagal response S/p pacemaker battery change on 10/04/22 H/O Syncope Pacemaker Interrogated: No issues No issues on telemetry Normal orthostatics Appreciate cardiology input Needs follow-up with upon discharge Prediabetes Will need HbA1C as outpatient Hypothyroidism Continue levothyroxine Hyperlipidemia Continue statin DVT Px: SCDs CODE STATUS Full code Disposition Home Total Time Total Time Spent Total Time Spent (In Minutes): 54 minutes Discharge Plan Discharge Items Patient Disposition: Home - Self-Care Reason For Visit: NEAR SYNCOPE Discharge Diagnosis: Presyncope Activity: Per Instructions section Exercise/Sports: Wait until after follow-up appointment Non-emergency contact: Primary Care Provider and Supervisor Cereal Call non-emergency contact if: you have any medication questions, your symptoms worsen, your pain is concerning for you and you have a fever Follow-up/Referrals: Yamini Piper MD [Primary Care Provider] - (Date & Time 10/11/2022 11:00 AM Provider Yamini Piper MD Department General Internal Medicine [facility] ) Diet: Heart Healthy Addtl Attending Provider Instructions: Follow-up with your primary care physician on 10/11/2022 11:00 AM Follow-up with your golf club maker Dr. Nguyen in 1 week as advised -- Monitor your blood pressure regularly at home and discuss with your primary care physician for further adjustment of medications as needed. Seek immediate medical attention if your symptoms reoccur or worsen Please take all medications as instructed on discharge list below. Please call if you have any questions or problems. You can reach a [facility] hospitalist on duty at [facility] 24 hours a day by calling [phone] Pending Studies at Discharge: No Stand-Alone Forms: [facility], Smoking Cessation Medications and DC Order Prescriptions: Continued multivitamin Tablet 1 tab PO DAILY aspirin 81 mg Tablet,Chewable 81 mg PO QAM fluticasone propionate [Flonase Allergy Relief] 50 mcg/actuation [place],Suspension 2 spray INTRANASAL QAM loratadine 10 mg Capsule 10 mg PO QAM atorvastatin 40 mg Tablet 40 mg PO QAM ibuprofen 200 mg Tablet 200 mg PO Q6H PRN (Reason: Pain) levothyroxine 75 mcg tablet 75 mcg PO DAILYBB calcium carbonate-vitamin D3 [Calcium 600 with Vitamin D3] 600 mg-12.5 mcg (500 unit) Capsule 1 cap PO DAILY Discharge Orders: Discharge Order (Routine); Ordered 10/05/22 Ordered By: Miquel Yusuf Admission Data Admit Date/Time: 10/04/22 23:45 Attending Provider: Miquel Yusuf Admit Provider: Iván Clement Primary Care Provider: Yamini Piper Other Providers: Iván Clement ; Kathleen Saab ; Ranjeet Day ; Benjamín Miguel ; Graeme Curiel ; Sumanth Yarbrough ; Johnny Hoff ; Lacie Gomez ; Susana Hamilton ; Kathleen Carbajal ; Keanu Varela ; Louise Espinoza ; Joe Johnson
--- NOTE | 2022-10-05 14:17 | Electrocardiogram Report ---
Test Reason : Blood Pressure : / mmHG Vent. Rate : 074 BPM Atrial Rate : 074 BPM P-R Int : 158 ms QRS Dur : 092 ms QT Int : 406 ms P-R-T Axes : 071 034 059 degrees QTc Int : 450 ms Normal sinus rhythm Incomplete right bundle branch block Borderline ECG When compared with ECG of 04-OCT-2022 21:36, (unconfirmed) No significant change was found Confirmed by Sergio Bowens ([id number]) on 10/05/2022 2:16:56 PM Referred By: REFERRED SELF Confirmed By:Isaias Bowens
--- NOTE | 2022-10-05 14:17 | Electrocardiogram Report ---
Test Reason : Blood Pressure : / mmHG Vent. Rate : 072 BPM Atrial Rate : 072 BPM P-R Int : 146 ms QRS Dur : 096 ms QT Int : 400 ms P-R-T Axes : 063 049 070 degrees QTc Int : 438 ms Normal sinus rhythm Possible Left atrial enlargement Incomplete right bundle branch block Abnormal ECG No previous ECGs available Confirmed by Sergio Bowens ([id number]) on 10/05/2022 2:17:32 PM Referred By: REFERRED SELF Confirmed By:Isaias Bowens
== END 2022-10-05 14:27 | disposition home or self-care (01) ==
LOC: ED 21:00 → 2S 21:00

== ENCOUNTER 2023-09-27 15:19 | Inpatient (IN) ==
--- NOTE | 2023-09-27 15:44 | Emergency Department Note ---
Impression & Plan Bloody diarrhea, ABLA (acute blood loss anemia) ED Provider Note Provider: Da Boston MD DATE OF SERVICE: 09/27/2023 CHIEF COMPLAINT: Bloody diarrhea, lower abdominal discomfort HISTORY OF PRESENT ILLNESS: Patient is a 78-year-old female history of fall the beginning of the months required acetabular and hip surgery at [facility] on the presenting here from [place] via ambulance reported with diarrhea and bloody diarrhea developing this afternoon. Bright red blood in the toilet occurred twice. Patient states she fell earlier in the month and required hip surgery. Has been recovering from this. Did receive 2 to 3 units of red blood cells at that time. On Monday had blood work with a hemoglobin of 8.3. Reports overnight developed some diarrhea. States she is not on some iron supplements and has noted some intermittent black stools for more than a week. States that she started develop some lower abdominal discomfort and some nauseous this overnight. Did have some breakfast. Feeling bit lightheaded and dizzy this afternoon and had 2 bright red bloody bowel movements. No vomiting but again some nausea earlier but denies significant now. No syncope. No falls. Some chronic soreness to the right hip and leg but this is unchanged. On aspirin. Was previously until about a week ago on some Lovenox but no longer. No history of GI bleed. Denies heartburn. Has had colonoscopies in the past without significant findings given family history of colon cancer PAST MEDICAL HISTORY: As noted above MEDICATIONS: Reviewed home medications includes aspirin FMH: Colon cancer SOCIAL HISTORY: Residing at [facility] for assistance recovering from hip fracture PHYSICAL EXAM: GENERAL: alert and oriented in no acute distress on stretcher Head: normocephalic and atraumatic EYES: No injection, discharge or icterus. EOMI. NECK: Trachea midline. ENT: Mucous membranes pink and moist. LUNGS: Airway patent. No retractions. Breath sounds clear HEART: Regular tachycardic rate and rhythm. No chest wall tenderness ABDOMEN: Soft some mild tenderness to lower abdomen but not peritoneal. No upper abdominal tenderness. SKIN: Acyanotic, warm, dry, without rashes EXTREMITIES: Without swelling, tenderness or deformity with some 1+ swelling of the right lower extremity twice swelling of the left lower extremity. Some tenderness and pain to the right hip region. NEUROLOGICAL: No focal deficits. No aphasia. No facial droop or slurred speech. EK bpm sinus tachycardia incomplete right bundle branch block. No acute ST segment elevation with some nonspecific inferolateral slight ST depression and a QTc of 461. CONTINUOUS CARDIAC MONITORING: was ordered and showed a heart rate of 90s-100s bpm in normal sinus rhythm to sinus tachycardia Patient's laboratory studies and imaging reviewed. Differential includes Diverticulosis, AVM, coagulopathy, colitis, inflammatory bowel disease, malignancy, Holly-Mccabe tear, esophagitis, peptic ulcer disease, variceal bleed, gastritis, epistaxis, fissure, hemorrhoids, as well as other pathologies. IMPRESSION/MEDICAL DECISION MAKING: Patient reports some generalized weakness lightheadedness with lower abdominal discomfort developing bloody diarrhea 2 episodes this afternoon. Not on anticoagulants but on aspirin. History of recent hip surgery and acetabular surgery denies significant heartburn or nausea at this point. Will give PPI bolus and drip although seems likely more to be lower GI. No history of diverticulitis reported or significant colonoscopy abnormalities by her report. Will obtain a CT abdomen pelvis given her discomfort here to look for inflammatory changes. Type and screen sent and given some gentle IV fluid hydration. Has had some nausea but declines nausea medicine now. Declined pain medicine at this point. A few sick contacts with folks with COVID or other GI illnesses unclear if this may be causing some gastroenteritis and bleeding from this. Will obtain stool studies and C. difficile when bowel movement happens. Troponin normal. EKG with a little bit of ST segment abnormality but no STEMI. Not having active chest pain. Doubt ACS. Hemoglobin low and patient was consented and 2 units of packed red blood cells were ordered. Discussed with blood bank does have some antibodies so be a several hour delay. Patient not extremis. Borderline temperature upon arrival and did take Tylenol at noon. Patient without evidence of acute hepatitis or renal dysfunction or electrolyte abnormality. BUN not elevated doubt this is upper GI bleed likely more lower. CT scan of the abdomen pelvis ordered for further evaluation of possible colitis/diverticulitis or other intra-abdominal process. CT report does not show any significant pneumoperitoneum/free air or evidence of diverticulitis. There is small fluid collection near the hip joint. No other infectious symptoms believe likely seroma. Negative COVID testing. Stool PCR pending. Given some IV Tylenol for mild lower abdominal discomfort and some IV fluids were given. Discussed with blood bank and blood should be ready here by 10 PM(patient with antibodies). Patient requires admission with her anemia and need for transfusion. Hospitalist was contacted. DIAGNOSIS: Bloody diarrhea, acute blood loss anemia DISPOSITION: Hospitalist will evaluate Patient was agreeable with this plan. Critical Care I have personally spent 49 minutes of critical care time in the direct management of this patient. This includes bedside care, interpretation of diagnostic studies, and testing, discussion with consultants, patient, and family members, and other required patient management activities. These 49 minutes is in excess of all separately billable procedures. 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 [facility] (device at home checking device) medtronic Near syncope (Acute) Encounter for pre-operative examination Family hx of colon cancer Medical History Osteoarthritis Hypothyroidism Migraine "flashing headaches" Syncope Hyperlipidemia Asthma as a child/no problems now Surgical History History of open reduction and internal fixation (ORIF) procedure left tib/fib History of colonoscopy History of tooth extraction History of tonsillectomy History of cataract surgery rt eye Family History Mother Family history of diabetes mellitus Brother Family history of diabetes mellitus Other Family hx of colon cancer Social History Smoking Status: Never smoker Second Hand Exposure: No; Do You Dip or Chew Tobacco: No; Hx Alcohol Use: No Hx Substance Use: No Preferred Language: Icelandic Communication Ability: Effective [employer]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 Verified 09/04/23 16:03 Home Meds Home Medications Medication Instructions Recorded Confirmed aspirin 81 mg chewable tablet 81 mg PO QAM 10/25/17 09/04/23 fluticasone propionate 50 2 spray intranasal QAM PRN Other 10/25/17 09/04/23 mcg/actuation nasal spray,suspension (Flonase Allergy Relief) multivitamin 1 tab PO DAILY 10/25/17 09/04/23 atorvastatin 40 mg tablet 40 mg PO QAM 10/04/22 09/04/23 calcium carbonate 600 mg-vitamin 1 cap PO DAILY 10/04/22 09/04/23 D3 12.5 mcg (500 unit) capsule (Calcium 600 with Vitamin D3) ibuprofen 200 mg tablet 200 mg PO Q6H PRN Pain 10/04/22 09/04/23 levothyroxine 75 mcg tablet 75 mcg PO DAILYBB 10/04/22 09/04/23 loratadine 10 mg capsule 10 mg PO HS 10/04/22 09/04/23 Results & Data (ED) Vital Signs Vital Signs - 24 hr 09/27/23 15:35 09/27/23 15:35 09/27/23 15:47 Temperature 37.6 C H Temperature Source Oral Pulse Rate 106 H 10 L Pulse Rate [Apical] 106 H Respiratory Rate 20 20 20 Blood Pressure 139/69 Blood Pressure [Left Arm] 139/69 Blood Pressure Mean 92 Blood Pressure Mean [Left Arm] 92 Pulse Oximetry 99 99 99 Oxygen Delivery Method Room Air Room Air Room Air Sepsis Recent Fever Within 48 Hours No Sepsis New/Unexplained Change in Mental Status N/A Sepsis Action Taken by Nursing No Action Required 09/27/23 17:27 09/27/23 19:14 Temperature Temperature Source Pulse Rate Pulse Rate [Apical] 103 H 105 H Respiratory Rate 23 12 Blood Pressure Blood Pressure [Left Arm] 124/64 114/70 Blood Pressure Mean Blood Pressure Mean [Left Arm] 84 84 Pulse Oximetry 95 98 Oxygen Delivery Method Room Air Room Air Sepsis Recent Fever Within 48 Hours Sepsis New/Unexplained Change in Mental Status Sepsis Action Taken by Nursing Laboratory Data 09/27/23 15:30 09/27/23 15:30 Lab Results 09/27/23 09/27/23 09/27/23 Range/Units 15:30 16:01 16:35 WBC 6.40 (4.8-10.8) K/ul RBC 2.02 L (4.20-5.40) M/uL Hgb 6.4 L* (12.0-16.0) g/dl Hct 20.5 L* (37.0-47.0) % MCV 101.5 H (80.0-100.0) fL MCH 31.7 (25.0-34.0) pg MCHC 31.2 L (32.0-36.0) g/dL RDW Std Deviation 68.7 H (36.4-46.3) fL RDW Coeff of Anitha 18.9 H (11.5-14.5) % Plt Count 254 (130-400) K/uL MPV 10.0 (9.4-12.4) fL Immature Gran % (Auto) 0.5 % Neut % (Auto) 75.4 % Lymph % (Auto) 14.8 % [place] % (Auto) 7.0 % Eos % (Auto) 1.7 % Baso % (Auto) 0.6 % Neut # (Auto) 4.82 (1.40-6.50) K/uL Lymph # (Auto) 0.95 L (1.20-3.40) K/uL [place] # (Auto) 0.45 (0.11-0.59) K/uL Eos # (Auto) 0.11 (0.00-0.50) K/uL Baso # (Auto) 0.04 (0.00-0.20) K/uL Immature Gran # (Auto) 0.03 (0.01-0.20) K/uL Polychromasia 1+ Anisocytosis Present Ovalocytes 1+ PT 10.3 (9.0-12.0) Seconds INR 0.9 (0.9-1.1) APTT < 20 L (21-31) Seconds PTT Ratio 0.7 Sodium 138 (136-145) mmol/L Potassium 4.0 (3.5-5.1) mmol/L Chloride 106 (98-107) mmol/L Carbon Dioxide 24 (21-32) mmol/L Anion Gap 8 (3-11) BUN 22 (6-23) mg/dl Creatinine 0.62 (0.6-1.2) mg/dl Est Cr Clr Drug Dosing 73.9 ml/min Est GFR ( Amer) 100.8 ml/min Est GFR (Non-Af Amer) 87.0 ml/min BUN/Creatinine Ratio 35.5 H (10-20) Glucose 102 H (70-99(Fasting)) mg/dl Calcium 8.8 (8.6-10.3) mg/dl Total Bilirubin 0.4 (0.2-1.0) mg/dl AST 24 (13-39) U/L ALT 23 (7-52) U/L Alkaline Phosphatase 117 H (34-104) U/L Troponin I High Sens 3.0 (0-14) pg/ml Total Protein 6.1 (6.0-8.3) gm/dl Albumin 3.8 (3.4-5.0) gm/dl Globulin 2.3 L (2.5-4.0) gm/dl Albumin/Globulin Ratio 1.7 (0.9-2) POC Stool Occult Blood (Negative) Stl C. diff Tox B Gene (Neg) SARS-CoV-2, RNA, NAAT NEGATIVE (NEGATIVE) Blood Type O Positive Blood Type Recheck Antibody Screen POSITIVE A Antibody Identification Anti-Jka Antigen Identification Jka Antigen - NEGATIVE Crossmatch See Detail 09/27/23 09/27/23 09/27/23 Range/Units 16:49 19:25 19:32 WBC (4.8-10.8) K/ul RBC (4.20-5.40) M/uL Hgb (12.0-16.0) g/dl Hct (37.0-47.0) % MCV (80.0-100.0) fL MCH (25.0-34.0) pg MCHC (32.0-36.0) g/dL RDW Std Deviation (36.4-46.3) fL RDW Coeff of Anitha (11.5-14.5) % Plt Count (130-400) K/uL MPV (9.4-12.4) fL Immature Gran % (Auto) % Neut % (Auto) % Lymph % (Auto) % [place] % (Auto) % Eos % (Auto) % Baso % (Auto) % Neut # (Auto) (1.40-6.50) K/uL Lymph # (Auto) (1.20-3.40) K/uL [place] # (Auto) (0.11-0.59) K/uL Eos # (Auto) (0.00-0.50) K/uL Baso # (Auto) (0.00-0.20) K/uL Immature Gran # (Auto) (0.01-0.20) K/uL Polychromasia Anisocytosis Ovalocytes PT (9.0-12.0) Seconds INR (0.9-1.1) APTT (21-31) Seconds PTT Ratio Sodium (136-145) mmol/L Potassium (3.5-5.1) mmol/L Chloride (98-107) mmol/L Carbon Dioxide (21-32) mmol/L Anion Gap (3-11) BUN (6-23) mg/dl Creatinine (0.6-1.2) mg/dl Est Cr Clr Drug Dosing ml/min Est GFR ( Amer) ml/min Est GFR (Non-Af Amer) ml/min BUN/Creatinine Ratio (10-20) Glucose (70-99(Fasting)) mg/dl Calcium (8.6-10.3) mg/dl Total Bilirubin (0.2-1.0) mg/dl AST (13-39) U/L ALT (7-52) U/L Alkaline Phosphatase (34-104) U/L Troponin I High Sens (0-14) pg/ml Total Protein (6.0-8.3) gm/dl Albumin (3.4-5.0) gm/dl Globulin (2.5-4.0) gm/dl Albumin/Globulin Ratio (0.9-2) POC Stool Occult Blood Positive A (Negative) Stl C. diff Tox B Gene Negative Cdiff Gene (Neg) SARS-CoV-2, RNA, NAAT (NEGATIVE) Blood Type Blood Type Recheck O Positive Antibody Screen Antibody Identification Antigen Identification Crossmatch Administered Medications Pantoprazole Sodium 40 mg/ (Dextrose) 100 mls @ 20 mls/hr IV Q5H [facility] Stop: 10/27/23 15:59 Last Admin: 09/27/23 21:02 Dose: 8 mg/hr, 20 mls/hr Documented By: Infusion: 09/27/23 21:02 Dose: Infused Documented By: [facility] Admin: 09/27/23 16:57 Dose: 8 mg/hr, 20 mls/hr Documented By: AVM Discontinued Medications Sodium Chloride (Nss) 500 mls @ 999 mls/hr IV .Q31M [facility] Stop: 09/27/23 16:15 Last Infusion: 09/27/23 17:02 Dose: Infused Documented By: Admin: 09/27/23 16:29 Dose: 999 mls/hr Documented By: MELISSA Pantoprazole Sodium 80 mg/ (Dextrose) 120 mls @ 480 mls/hr IV NOW ONE Stop: 09/27/23 15:52 Last Infusion: 09/27/23 16:56 Dose: Infused Documented By: Admin: 09/27/23 16:29 Dose: 480 mls/hr Documented By: MELISSA Sodium Chloride (Nss) 500 mls @ 999 mls/hr IV .Q31M ONE Stop: 09/27/23 21:02 Last Admin: 09/27/23 20:56 Dose: 999 mls/hr Documented By: CATRINA Ioversol (Optiray 320 100ml) 91 ml IV ONCE ONE Stop: 09/27/23 18:34 Last Admin: 09/27/23 18:35 Dose: 91 ml Documented By: CARYN Imaging Data Radiologist's Impression: Abdomen/Pelvis CT 09/27/23 15:38 Exam(s): CT ABDOMEN + PELVIS With Contrast IV Amt: 91 ml optiray 320 EXAM: CT Abdomen and Pelvis With Intravenous Contrast CLINICAL HISTORY: lower abd pain, bloody stool. TECHNIQUE: Axial computed tomography images of the abdomen and pelvis with intravenous contrast. CTDI is 19.24 mGy and DLP is 880.95 mGy-cm. Automated exposure control was utilized for the study. A dose lowering technique was utilized adhering to the principles of ALARA. CONTRAST: Patient received 91 ml optiray 320 of IV contrast COMPARISON: CT abdomen and pelvis with contrast dated 09/04/2023 FINDINGS: Limitations: There is respiratory artifact, which degrades image quality on multiple image slices. Lung bases: Unremarkable. No mass. No consolidation. ABDOMEN: Liver: Unremarkable. No mass. Gallbladder and bile ducts: Unremarkable. No calcified stones. No ductal dilation. Pancreas: Pancreas is normal in appearance, accounting for respiratory artifact. No ductal dilation. Spleen: Unremarkable. No splenomegaly. Adrenals: Unremarkable. No mass. Kidneys and ureters: Unremarkable. No solid mass. No hydronephrosis. Stomach and bowel: Stomach is only minimally distended with retained oral contents and fluid. No significant gastric mucosal thickening. No evidence for bowel obstruction. No obvious asymmetric bowel mucosal abnormality, accounting for limitations with respiratory artifact. No appreciable diverticulitis. PELVIS: Appendix: No findings to suggest acute appendicitis. Bladder: Unremarkable. No mass. Reproductive: Unremarkable as visualized. ABDOMEN and PELVIS: Intraperitoneal space: Unremarkable. No free air. No significant fluid collection. Bones/joints: There has been interval repair of the avulsion fracture involving the posterior right acetabulum with a total hip arthroplasty is identified with metallic plate and threaded screw fixation along the posterior acetabulum. Along the posterior aspect of the hip joint, there is a rim-enhancing fluid collection which demonstrates a somewhat crescentic appearance measuring 1.7 cm in diameter by approximately 6.9 cm in transverse diameter by 7.8 cm in craniocaudal length. Soft tissues: Unremarkable. Vasculature: Atherosclerotic calcification of the aorta without dissection or aneurysm. Lymph nodes: Unremarkable. No enlarged lymph nodes. Tubes, lines and devices: The cardiac chambers are normal in caliber with evidence of a dual lead pacer. IMPRESSION: 1. Stomach is only minimally distended with retained oral contents and fluid. No significant gastric mucosal thickening. No evidence for bowel obstruction. No obvious asymmetric bowel mucosal abnormality, accounting for limitations with respiratory artifact. No appreciable diverticulitis. No free intraperitoneal fluid or pneumoperitoneum. 2. There has been interval repair of the avulsion fracture involving the posterior right acetabulum with a total hip arthroplasty is identified with metallic plate and threaded screw fixation along the posterior acetabulum. Along the posterior aspect of the hip joint, there is a rim- enhancing fluid collection which demonstrates a somewhat crescentic appearance measuring 1.7 cm in diameter by approximately 6.9 cm in transverse diameter by 7.8 cm in craniocaudal length. This is a presumed postoperative seroma. However, please correlate with laboratory and clinical findings for potential abscess. Electronically signed by: Heladio Kenny MD 09/27/23 20:26 PM Discharge Plan Visit Data Chief Complaint: GI Bleed Stated Complaint: diarrhea ED Provider: Da Boston Discharge Problem: Bloody diarrhea, ABLA (acute blood loss anemia) Patient Disposition: Being Evaluated by Hospitalist Forms Stand Alone Forms: My [facility] Prescriptions Prescriptions: No Action multivitamin Tablet 1 tab PO DAILY aspirin 81 mg Tablet,Chewable 81 mg PO QAM fluticasone propionate [Flonase Allergy Relief] 50 mcg/actuation [place],Suspension 2 spray INTRANASAL QAM PRN (Reason: Other) loratadine 10 mg Capsule 10 mg PO HS atorvastatin 40 mg Tablet 40 mg PO QAM ibuprofen 200 mg Tablet 200 mg PO Q6H PRN (Reason: Pain) levothyroxine 75 mcg tablet 75 mcg PO DAILYBB calcium carbonate-vitamin D3 [Calcium 600 with Vitamin D3] 600 mg-12.5 mcg (500 unit) Capsule 1 cap PO DAILY Referrals Referrals: Yamini Piper MD [Primary Care Provider] -
[2023-09-27 16:13] LABS: Hematocrit (blood only) 20.5 % (37.0-47.0); Hemoglobin 6.4 g/dl (12.0-16.0); Mean Corpuscular Hemoglobin 31.7 pg (25.0-34.0); Mean Corpuscular Hgb Conc 31.2 g/dL (32.0-36.0); Mean Corpuscular Volume 101.5 fL (80.0-100.0); Platelet Count 254 K/uL (130-400); RDW Coefficient of Variation 18.9 % (11.5-14.5); RDW Standard Deviation 68.7 fL (36.4-46.3); Red Blood Count 2.02 M/uL (4.20-5.40)
[2023-09-27 16:27] LABS: Anisocytosis Present; Basophils # (auto) 0.04 K/uL (0.00-0.20); Basophils % (auto) 0.6 %; Eosinophils # (auto) 0.11 K/uL (0.00-0.50); Eosinophils % (auto) 1.7 %; Immature Granulocytes # (auto) 0.03 K/uL (0.01-0.20); Immature Granulocytes % (auto) 0.5 %; Lymphocytes # (auto) 0.95 K/uL (1.20-3.40); Lymphocytes % (auto) 14.8 %; Monocytes # (auto) 0.45 K/uL (0.11-0.59); Neutrophils # (auto) 4.82 K/uL (1.40-6.50); Neutrophils % (auto) 75.4 %; Ovalocytes 1+; Polychromasia 1+
[2023-09-27 16:29] LABS: INR 0.9 (0.9-1.1); Partial Thromboplastin Ratio 0.7; Prothrombin Time 10.3 Seconds (9.0-12.0)
[2023-09-27] MEDS: SODIUM CHLORIDE 0.9% 500 ML IV SCH (16:29)
[2023-09-27] MEDS: PANTOprazole 80 MG in DEXTROSE 5% 100 ML IV ONE (16:29)
[2023-09-27] MEDS ORDERED: SODIUM CHLORIDE 0.9% 250 ML IV PRN ×3 (16:39→23:02)
[2023-09-27 16:44] LABS: Partial Thromboplastin Time < 20 Seconds (21-31)
[2023-09-27] MEDS: PANTOprazole 40 MG in DEXTROSE 5% MINI-B 100 ML IV SCH (16:57)
[2023-09-27 17:01] LABS: Albumin Level 3.8 gm/dl (3.4-5.0); Bilirubin,Total 0.4 mg/dl (0.2-1.0); Calcium 8.8 mg/dl (8.6-10.3)
[2023-09-27 17:07] LABS: Albumin Globulin Ratio 1.7 (0.9-2); BUN Creatinine Ratio 35.5 (10-20); Creatinine Clr Calc Pharmacy 73.9 ml/min; Est GFR (African American) 100.8 ml/min; Globulin 2.3 gm/dl (2.5-4.0); Total Protein 6.1 gm/dl (6.0-8.3)
[2023-09-27] MEDS: OPTIRAY 320 100ml IV ONE (18:35)
--- NOTE | 2023-09-27 20:27 | CT Scan Report ---
Exam(s): CT ABDOMEN + PELVIS With Contrast IV Amt: 91 ml optiray 320 EXAM: CT Abdomen and Pelvis With Intravenous Contrast CLINICAL HISTORY: lower abd pain, bloody stool. TECHNIQUE: Axial computed tomography images of the abdomen and pelvis with intravenous contrast. CTDI is 19.24 mGy and DLP is 880.95 mGy-cm. Automated exposure control was utilized for the study. A dose lowering technique was utilized adhering to the principles of ALARA. CONTRAST: Patient received 91 ml optiray 320 of IV contrast COMPARISON: CT abdomen and pelvis with contrast dated 09/04/2023 FINDINGS: Limitations: There is respiratory artifact, which degrades image quality on multiple image slices. Lung bases: Unremarkable. No mass. No consolidation. ABDOMEN: Liver: Unremarkable. No mass. Gallbladder and bile ducts: Unremarkable. No calcified stones. No ductal dilation. Pancreas: Pancreas is normal in appearance, accounting for respiratory artifact. No ductal dilation. Spleen: Unremarkable. No splenomegaly. Adrenals: Unremarkable. No mass. Kidneys and ureters: Unremarkable. No solid mass. No hydronephrosis. Stomach and bowel: Stomach is only minimally distended with retained oral contents and fluid. No significant gastric mucosal thickening. No evidence for bowel obstruction. No obvious asymmetric bowel mucosal abnormality, accounting for limitations with respiratory artifact. No appreciable diverticulitis. PELVIS: Appendix: No findings to suggest acute appendicitis. Bladder: Unremarkable. No mass. Reproductive: Unremarkable as visualized. ABDOMEN and PELVIS: Intraperitoneal space: Unremarkable. No free air. No significant fluid collection. Bones/joints: There has been interval repair of the avulsion fracture involving the posterior right acetabulum with a total hip arthroplasty is identified with metallic plate and threaded screw fixation along the posterior acetabulum. Along the posterior aspect of the hip joint, there is a rim-enhancing fluid collection which demonstrates a somewhat crescentic appearance measuring 1.7 cm in diameter by approximately 6.9 cm in transverse diameter by 7.8 cm in craniocaudal length. Soft tissues: Unremarkable. Vasculature: Atherosclerotic calcification of the aorta without dissection or aneurysm. Lymph nodes: Unremarkable. No enlarged lymph nodes. Tubes, lines and devices: The cardiac chambers are normal in caliber with evidence of a dual lead pacer. IMPRESSION: 1. Stomach is only minimally distended with retained oral contents and fluid. No significant gastric mucosal thickening. No evidence for bowel obstruction. No obvious asymmetric bowel mucosal abnormality, accounting for limitations with respiratory artifact. No appreciable diverticulitis. No free intraperitoneal fluid or pneumoperitoneum. 2. There has been interval repair of the avulsion fracture involving the posterior right acetabulum with a total hip arthroplasty is identified with metallic plate and threaded screw fixation along the posterior acetabulum. Along the posterior aspect of the hip joint, there is a rim- enhancing fluid collection which demonstrates a somewhat crescentic appearance measuring 1.7 cm in diameter by approximately 6.9 cm in transverse diameter by 7.8 cm in craniocaudal length. This is a presumed postoperative seroma. However, please correlate with laboratory and clinical findings for potential abscess. Electronically signed by: Heladio Kenny MD 09/27/23 20:26 PM
[2023-09-27] MEDS: SODIUM CHLORIDE 0.9% 500 ML IV ONE (20:56)
[2023-09-27 21:12] LABS: Adenovirus F 40/41 PCR Not Detected (NotDetected); Astrovirus PCR Not Detected (NotDetected); Campylobacter PCR Not Detected (NotDetected); Cryptosporidium PCR Not Detected (NotDetected); Cyclospora cayetanensis PCR Not Detected (NotDetected); Entamoeba histolytica PCR Not Detected (NotDetected); Enteroaggregative E.coli(EAEC) Not Detected (NotDetected); Enteropathogenic E.coli (EPEC) Not Detected (NotDetected); Enterotoxigenic E.coli (ETEC) Not Detected (NotDetected); Giardia lamblia PCR Not Detected (NotDetected); Norovirus GI/GII PCR Not Detected (NotDetected); Plesiomonas shigelloides PCR Not Detected (NotDetected); Rotavirus A PCR Not Detected (NotDetected); Salmonella PCR Not Detected (NotDetected); Sapovirus PCR Not Detected (NotDetected); Shiga-like Toxin E.coli (STEC) Not Detected (NotDetected); Shigella/Enteroinvasive E.coli Not Detected (NotDetected); Vibrio cholerae PCR Not Detected (NotDetected); Vibrio species PCR Not Detected (NotDetected); Yersinia enterocolitica PCR Not Detected (NotDetected)
[2023-09-27] MEDS: ONDANSETRON INJ 2 MG/ML 2 ML VIAL IV STA (21:17)
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
[2023-09-27] MEDS: ACETAMINOPHEN 1,000 MG/100 ML VIAL IV STA (22:36)
[2023-09-27] MEDS: SODIUM CHLORIDE 0.9% 1,000 ML IV ONE (22:37)
[2023-09-27 23:04] LABS: Hematocrit (blood only) 15.7 % (37.0-47.0); Hemoglobin 4.8 g/dl (12.0-16.0)
[2023-09-28] MEDS ORDERED: NITROGLYCERIN SL 0.4 MG/TAB TAB SL PRN (00:16)
[2023-09-28] MEDS ORDERED: ONDANSETRON INJ 2 MG/ML 2 ML VIAL IV PRN (00:16)
[2023-09-28 01:12] LABS: BUN Creatinine Ratio 50.9 (10-20); Calcium 7.3 mg/dl (8.6-10.3); Creatinine Clr Calc Pharmacy 83.6 ml/min; Est GFR (African American) 106.1 ml/min; Est GFR (Non-African American) 91.6 ml/min; Potassium 4.2 mmol/L (3.5-5.1)
[2023-09-28] MEDS: PANTOPRAZOLE BOLUS/DRIP IV STA (01:20)
[2023-09-28 01:23] LABS: Fibrinogen 197 mg/dl (184-400); INR 1.1 (0.9-1.1); Prothrombin Time 11.4 Seconds (9.0-12.0)
[2023-09-28] MEDS: SODIUM CHLORIDE 0.9% 1,000 ML IV SCH (01:23)
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
--- OUTSIDE RECORDS SUMMARY | 2023-09-28 01:24 | External Medical Summary | Summary of Care ---
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 Hypertrophic change/stress reaction at the cortical exit points of the recently removed immobilizer hardware. Narrative 09/25/2023 4:19 PM EDT EXAM XR KNEE 4 OR MORE VIEWS-09/25/2023 12:58 pm HISTORY Per requisition: Rt knee pain and swelling since immobilizer taken out 1 week - was in accident from fall from car TECHNIQUE XR KNEE 4 OR MORE VIEWS RT COMPARISON None FINDINGS No acute fracture or dislocation. Marginal osteophytes. Cartilage spaces are maintained. Small quadriceps enthesophyte. Ghost screw tract at the distal femoral diaphysis, with hypertrophic change/stress reaction at the cortical exit points. Small joint effusion. Procedure Note Elise Zarate MD - 09/25/2023 EXAM XR KNEE 4 OR MORE VIEWS-09/25/2023 12:58 pm HISTORY Per requisition: Rt knee pain and swelling since immobilizer taken out 1week - was in accident from fall from car TECHNIQUE XR KNEE 4 OR MORE VIEWS RT COMPARISON None FINDINGS No acute fracture or dislocation. Marginal osteophytes. Cartilage spacesare maintained. Small quadriceps enthesophyte. Ghost screw tract at thedistal femoral diaphysis, with hypertrophic change/stress reaction at thecortical exit points. Small joint effusion. IMPRESSION IMPRESSION 1. No acute fracture or dislocation. 2. Mild osteoarthritis. 3. Small joint effusion. 4. Hypertrophic change/stress reaction at the cortical exit points of therecently removed immobilizer hardware. Yamini Piper MD RADIOLOGY (RAD GENER AL) * BASIC METABOLIC PANEL (09/25/2023 12:39 PM EDT) BUN 17 6 - 20 mg/dL 09/25/2023 2:21 PM EDT [facility] 56 Creatinine 0.6 0.5 - 1.0 mg/dL 09/25/2023 2:21 PM EDT [address] Estimated Glomerular Filtration Rate >90 >=60 mL/min 09/25/2023 2:21 PM EDT [facility] 56 Comment:eGFR is calculated b ased on the CKD-EPI 2020 equation. Sodium 138 135 - 146 mmol/L 09/25/2023 2:21 PM EDT [address] Potassium 4.4 3.5 - 5.1 mmol/L 09/25/2023 2:21 PM EDT [address] Chloride 102 98 - 107 mmol/L 09/25/2023 2:21 PM EDT [address] CO2 24 22 - 32 mmol/L 09/25/2023 2:21 PM EDT [address] Anion Gap 12 7 - 15 mmol/L 09/25/2023 2:21 PM EDT [address] Glucose 93 70 - 120 mg/dL 09/25/2023 2:21 PM EDT [address] Calcium 8.9 8.4 - 10.2 mg/dL 09/25/2023 2:21 PM EDT [address] Blood Venous blood specimen / Unknown Venipuncture / Unknown 09/25/2023 12:39 PM EDT 09/25/2023 12:40 PM EDT Yamini Piper MD LAB BLOOD ORDERABLES [place] [address] [place], [place] [id number] documented in this encounter Visit Diagnoses Diagnosis Hospital discharge follow-up- Primary Other follow-up examination Closed nondisplaced fracture of posterior wall of right acetabulum with routine healing, subsequent encounter 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 deficiency anemia secondary to blood loss (chronic) Acquired hypothyroidism Unspecified hypothyroidism SSS (sick sinus syndrome) (HCC) Sinoatrial node dysfunction Hypocalcemia Pain and swelling of right knee Dizziness Dizziness and giddiness Other vitamin B12 deficiency anemia Other insomnia Constipation, unspecified constipation type Prediabetes Other abnormal glucose Status post placement of cardiac pacemaker Cardiac pacemaker in situ TMJ (temporomandibular joint disorder) Temporomandibular joint disorders, unspecified Other chronic sinusitis Near syncope Syncope and collapse Impaired fasting glucose Hyperlipidemia with target LDL less than 100 Other and unspecified hyperlipidemia Closed fracture of head of right femur, sequela Closed displaced fracture of posterior wall of right acetabulum with routine healing, subsequent encounter Asymptomatic bilateral carotid artery stenosis Occlusion and stenosis of multiple and bilateral precerebral arteries without mention of cerebral infarction Advance directive on file Other specified conditions influencing health status Acute blood loss anemia Acute posthemorrhagic anemia documented in this encounter Advance Directives * Full Code (Latest Code Status on File) Date Activated Date Inactivated Comments 09/05/2023 3:03 AM 09/10/2023 3:03 PM This order re flects the patients wishes and were consensually agreed upon. Does not want trach / peg. Question Answer Comments Discussion of Advance Directives occurred with: Patient Healthcare Agents on File Name Relationship Healthcare Agent [facility] p Communication Erika Brandt Adult Child Health Care Agen t (per Health Care Power of Care Technician document) Care Teams Mechanical Maintenance Relationship Specialty Start Date End Date Yamini Piper MD [address] [place] [address] PCP - General Internal Medicine 05/03/18 documented as of this encounter
--- OUTSIDE RECORDS SUMMARY | 2023-09-28 01:24 | External Medical Summary ---
Author Name Unknown Address Unknown Organization K01:LABORATORY [facility] - [address] [place] [address] Laboratory Report Ordering Provider Test Date Status JUANA CAMPBELL 09/25/2023 12:39:59 Final Deficient: <20 ng/mL
Ins ufficient: 20-29 ng/mL
Recommended/Optimum:30-50 ng/mL

Vitamin D intoxication is rare. If suspicious of Vitamin D toxicity, evaluation of serum Calcium and PTH is recommended. Observation Date Value Abnormality Reference (Units ) Status 25-OH Vitamin D total 09/25/2023 12:39:59 36 >19 (ng/mL) Final Performing Location LABORATORY C - [address] [place] [address]
--- OUTSIDE RECORDS SUMMARY | 2023-09-28 01:24 | External Medical Summary ---
Author Name Unknown Address Unknown Organization K09:LABORATORY [place] [address] Laboratory Report Ordering Provider Test Date Status JUANA CAMPBELL 09/25/2023 12:39:59 Final Observation Date Value Abnormality Reference (Units ) Status BUN 09/25/2023 12:39:59 17 6-20 (mg/dL) Final Creatinine 09/25/2023 12:39:59 0.6 0.5-1.0 (mg/dL) Final Glomerular filtration rate/1.73 sq M.predicted [Volume Rate/Area] in Serum, Plasma or Blood by Creatinine-based formula (CKD-EPI) 09/25/2023 12:39:59 >90 >=60 (mL/min) Final eGFR is calculated based on the CKD-EPI 2020 equation. Sodium 09/25/2023 12:39:59 138 135-146 (m mol/L) Final Potassium 09/25/2023 12:39:59 4.4 3.5-5.1 (m mol/L) Final Cl 09/25/2023 12:39:59 102 98-107 (mm ol/L) Final CO2 09/25/2023 12:39:59 24 22-32 (mmo l/L) Final Anion gap 09/25/2023 12:39:59 12 7-15 (mmol /L) Final Glucose 09/25/2023 12:39:59 93 70-120 (mg /dL) Final Calcium 09/25/2023 12:39:59 8.9 8.4-10.2 ( mg/dL) Final Performing Location [facility] [place] [address]
--- OUTSIDE RECORDS SUMMARY | 2023-09-28 01:24 | External Medical Summary ---
Author Name Unknown Address Unknown Organization K01:LABORATORY [facility] - [address] [place] [address] Laboratory Report Ordering Provider Test Date Status JUANA CAMPBELL 09/25/2023 12:39:59 Final Observation Date Value Abnormality Reference (Units ) Status Vitamin B12 09/25/2023 12:39:59 401 239-6579 (pg/mL) Final Performing Location LABORATORY [facility] - [address] [place] [address]
--- OUTSIDE RECORDS SUMMARY | 2023-09-28 01:24 | External Medical Summary | Summary of Care ---
Author Name Unknown Organization [facility] Address [address] [place] [address] Phone [phone] Care Team Providers Care Escort Patients Name Role Phone Yamini Piper MD Primary Care Provider [phone] Reason for Visit * Reason Comments Outpatient Testing Encounter Details Date Type Department Care Team (Latest Contact Info) Description 09/25/2023 12:40 PM EDT Laboratory Laboratory [facility] [address] [place] [address] [place], [address] [place] [address] Retroperitoneal hemorrhage; Closed nondisplaced fracture of posterior wall of right acetabulum with routine healing, subsequent encounter; Iron deficiency anemia due to chronic blood loss; Other vitamin B12 deficiency anemia; Hypocalcemia Allergies Active Allergy Reactions Criticality Noted Date [...] ve Levothyroxine Sodium 75 MCG Oral Tablet (Levoxyl)Indications :Acquired hypothyroidism TAKE 1 TABLET DAILY AT LEAST 30 MINUTES PRIOR TO BREAKFAST OR OTHER MEDS 90 Tablet 3 01/13/2023 Active Atorvastatin Calcium 40 MG Oral Tablet (Lipitor)Indications :Hyperlipidemia with target LDL less than 100 TAKE 1 TABLET IN THE MORNING. 90 Tablet 3 06/20/2023 Active Fluticasone Propionate 50 MCG/ACT Nasal Suspension (Flonase)Indications :Chronic pansinusitis USE 2 SPRAYS IN EACH NOSTRIL [...] daily at noon. 60 Tablet 09/10/2023 Active Ferrous Sulfate 325 (65 Fe) MG Oral Tablet (Feosol)Indications: Iron deficiency anemia due to chronic blood loss Take 1 Tablet by mouth in the morning and 1 Tablet before bedtime. 60 Tablet 11 09/25/2023 Active Melatonin ER 5 MG Oral Tablet Extended ReleaseIndications:O ther insomnia 1 tab an hour before bedtime 30 Tablet 09/25/2023 Active Docusate Sodium 100 MG Oral Capsule (Colace)Indications: Constipation, unspecified constipation type Take 1 Capsule by mouth in the morning and 1 Capsule before bedtime. 30 Capsule 09/25/2023 Active Baclofen 10 MG Oral Tablet (Lioresal)Indication s:Closed nondisplaced fracture of posterior wall of right acetabulum with routine healing, subsequent encounter,Pain and swelling of right knee Take 1 Tablet by mouth at bedtime as needed for Pain. 20 Tablet 09/25/2023 Active documented as of this encounter (statuses as [...] program 07/26/2017 09/30/2019 Overview: DO NOT DELETE [facility] DETECT Study: Project # [id number], Intermediate School Teacher: Eric Magana, PhD. SUMMARY: Goal: Establish test [...] contact study staff at ; after hours Intermediate School Teacher via the [facility] scrap crane operator . Please contact study team before resolving/deleting from patients problem list. Study phone number: [phone]. Diagnosis changed due to Research Module. Go to Snapshot for study details. Encounter for examination fo r normal comparison and control in clinical research program 07/26/2017 10/28/2021 Overview: DO NOT DELETE - [facility] DETECT Study: Project # [id number], Intermediate School Teacher: Jordan Umana, MS, MPH. SUMMARY: Goal: Establish [...] contact study staff at ; after hours Intermediate School Teacher via the [facility] hospital scrap crane operator . - Please contact study team before resolving/deleting from patients problem list. Study phone number: [phone]. Diagnosis changed due to Research Module. Go [...] on file documented as of this encounter Plan of Treatment Upcoming Encounters Date Type Department Care Team (Late st Contact Info) Description 09/26/2023 3:00 PM EDT Telemedicine General Surgery, [facility] [address] [place] [address] 620, [facility] [address] [place] [address] 10/16/2023 9:45 AM EDT Office Visit Orthopaedics, [facility] [address] [place] [address] Trenton Nunez, Ranjeet Drake MD [address] [place] [address] 12/22/2023 2:00 PM EDT Office Visit General Internal Medicine [facility] [address] [facility] [place] [address] Yamini Piper MD [address] [facility] [place] [address] 02/01/2024 10:00 AM EST Cardiac Studies Cardiology, [facility] [address] [place] [address] [place], Pacer Clinic [facility] [address] [place] [address] Pending Results Name Type Priority Associated Diagnoses Date /Time IRON SCREEN, INCLUDING TIBC Lab Routine Iron deficiency anemia due to chronic blood loss 09/25/2023 12:39 PM EDT FERRITIN Lab Routine Iron deficiency anemia due to chronic blood loss 09/25/2023 12:39 PM EDT VITAMIN B12 Lab Routine Iron deficiency anemia due to chronic blood loss Other vitamin B12 deficiency anemia 09/25/2023 12:39 PM EDT BASIC METABOLIC PANEL Lab Routine Hypocalcemia 09/25/2023 12:39 PM EDT 25-HYDROXY VITAMIN D Lab Routine Hypocalcemia 09/25/2023 12:39 PM EDT CALCIUM, IONIZED Lab Routine Hypocalcemia 09/25/2023 12:39 PM EDT Scheduled Procedures Name Priority Associated Diagnoses Date/Ti [...] this encounter Medical Devices Implanted Type Area Supervisor [employer] Device Identifier Shelf Expiration Date Model / Serial / Lot Plate Lcp Pilon 3.5 7h 240.082 - [id number] Implanted:Qty: 1 on 09/05/2023 by Trenton Nunez, Ranjeet Drake MD at [facility] Right: Pelvis SYNTHES 240.082 / / Hip Head V40 Taper C C 222 0 - [id number] Implanted:Qty: 1 on 09/05/2023 by Ranjeet Chowdhury Jr., MD [place] [facility] Right: Hip TOIN : ORTHOPAEDICS 07/09/2028 6260-4-122 / / [id number] Screw Selftap 3.5x36 204.836 - [id number] Implanted:Qty: 2 on 09/05/2023 by Ranjeet Chowdhury Jr., MD [place] [facility] Right: Pelvis SYNTHES 204.836 / / Screw Selftap 3.5x20 204.820 - [id number] Implanted:Qty: 2 on 09/05/2023 by Ranjeet Chowdhury Jr., MD at [place] [facility] Right: Pelvis SYNTHES 204.820 / / Implant Hip Acetab Shell 50d - [id number] Implanted:Qty: 1 on 09/05/2023 by Ranjeet Chowdhury Jr., MD [place] [facility] Right: Hip TONI : ORTHOPAEDICS 11/28/2026 709-04-50D / / [id number] Screw Low Profile 6.3gai62td - [id number] Implanted:Qty: 1 on 09/05/2023 by Ranjeet Chowdhury Jr., MD [place] [facility] Right: Hip TONI : ORTHOPAEDICS 04/05/2028 [id number] / / [id number] Screw Low Profile 6.7utz06we - [id number] Implanted:Qty: 1 on 09/05/2023 by Ranjeet Chowdhury Jr., MD [place] [facility] Right: Hip TONI : ORTHOPAEDICS 04/03/2028 [id number] / / GBCA Hip Liner Mdm Cocr 38 D - [id number] Implanted:Qty: 1 on 09/05/2023 by Ranjeet Chowdhury Jr., MD [place] [facility] Right: Hip TONI : ORTHOPAEDICS 07/24/2028 626-00-38D / / [id number] Implant Stem Hip Colr Std 2 - [id number] Implanted:Qty: 1 on 09/05/2023 by Ranjeet Chowdhury Jr., MD at [place] [facility] Right: Hip TONI : ORTHOPAEDICS 03/13/2027 9699-6445 / / [id number] [facility] X3 Inser Liner 22x44 - [id number] Implanted:Qty: 1 on 09/05/2023 by Ranjeet Chowdhury Jr., MD [place] [facility] Right: Hip TONI : ORTHOPAEDICS 09/15/2027 7236-2-244 / / [id number] documented as of this encounter Procedures Procedure Name Priority Date/Time Associated Diagnosis Comments CBC STAT 09/25/2023 12:39 PM EDT Retroperitoneal hemorrhage documented in this encounter Results * (ABNORMAL) CBC (09/25/2023 12:39 PM EDT) WBC 5.89 4.00 - 10.80 K/uL 09/25/2023 12:54 PM EDT [facility] 56 RBC 2.58 3.85 - 5.15 M/uL 09/25/2023 12:54 PM EDT [address] HGB 8.4(L) 12.0 - 15.3 g/dL 09/25/2023 12:54 PM EDT [facility] 56 HCT 27.2(L) 36.0 - 45.2 % 09/25/2023 12:54 PM EDT [facility] 56 MCV 105.4 81.5 - 97.5 fL 09/25/2023 12:54 PM EDT [facility] 56 MCH 32.6 27.0 - 34.0 pg 09/25/2023 12:54 PM EDT [facility] 56 MCHC 30.9 32.0 - 36.0 g/dL 09/25/2023 12:54 PM EDT [facility] 56 RDW 19.0 11.5 - 15.5 % 09/25/2023 12:54 PM EDT [facility] 56 PLT 343 140 - 400 K/uL 09/25/2023 12:54 PM EDT [facility] 56 MPV 9.6 6.6 - 11.1 fL 09/25/2023 12:54 PM EDT [facility] 56 Blood Venous blood specimen / Unknown Venipuncture / Unknown 09/25/2023 12:39 PM EDT 09/25/2023 12:40 PM EDT Laura Marx PA-C LAB BLOOD ORD ERABLES [facility] 56-[address] [place] [address] documented in this encounter Visit Diagnoses Diagnosis Retroperitoneal hemorrhage Hemorrhage, unspecified Closed nondisplaced fracture of posterior wall of right acetabulum with routine healing, subsequent encounter 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 deficiency anemia secondary to blood loss (chronic) Other vitamin B12 deficiency anemia Hypocalcemia documented in this encounter Advance Directives * [...] Agen t (per Health Care Power of Clinical Trials Systems Administrator document) Care Teams Escort Patients Relationship Specialty Start Date End Date [facility]amini Piper [facility] [address] [facility] [facility] [address] PCP - General Internal Medicine 05/03/18 documented as of this encounter
--- OUTSIDE RECORDS SUMMARY | 2023-09-28 01:24 | External Medical Summary ---
Author Name Unknown Address Unknown Organization K01:LABORATORY [facility] - [address] [facility] [address] Laboratory Report Ordering Provider Test Date Status JUANA CAMPBELL 09/25/2023 12:39:59 Final Observation Date Value Abnormality Reference (Units ) Status TSH 09/25/2023 12:39:59 4.49 Above high normal 0. 27-4.20 (uIU/mL) Final Performing Location LABORATORY C - [address] [facility] [address]
--- OUTSIDE RECORDS SUMMARY | 2023-09-28 01:24 | External Medical Summary | Summary of Care ---
Author Name Unknown Organization [facility] Address [address] [place] [address] Phone [phone] Care Team Providers Care Hedge Fund Principal Name Role Phone Yamini Piper MD Primary Care Provider Reason for Visit * Reason Comments Post-Op ORIF Right posterior wall acetabular fracture 09/05/23 Encounter Details Date Type Department Care Team (Late st Contact Info) Description 09/18/2023 9:00 AM EDT [facility] [address] [place] [address] Ranjeet Chowdhury Jr., MD [address] [place], [place] [id number] Closed displaced fracture of posterior wall of right acetabulum, initial encounter ([facility])* Allergies Active Allergy Reactions Criticality Noted Date Comments Pollen 06/17/2014 Nasal congestion documented as of this encounter (statuses as of 09/18/2023) Medications Medication Sig Dispensed Refills Start Date [...] EVERY DAY 48 g 3 06/20/2023 Active Carisoprodol 350 MG Oral Tablet (Soma) Take 0.5 Tablets by mouth 4 times a day as needed for Muscle spasms (continuation of pain therapy). 20 Tablet 09/10/2023 Active Sennosides 8.6 MG Oral Tablet (Senokot) Take 2 Tablets by mouth in the morning. 60 Tablet 09/11/2023 Active Polyethylene Glycol 3350 17 GM Oral Packet (Miralax) Take 1 Packet by mouth in the morning. 14 Each 09/10/2023 Active Docusate Sodium 100 MG Oral Capsule (Colace) Take 1 Capsule by mouth in the morning and 1 Capsule before bedtime. 10 Capsule 09/10/2023 Active Bacitracin Zinc 500 UNIT/GM External Ointment Apply topically to affected area 3 times a day. Apply to scattered abrasions 120 g 09/10/2023 Active Enoxaparin Sodium 30 MG/0.3ML Injection Solution Prefilled Syringe (Lovenox) Inject 30 mg under the skin in the morning and 30 mg before bedtime. Do all this for 14 days. 8.4 mL 09/10/2023 Active traMADol HCl 50 MG Oral Tablet (Ultram) Take 1 Tablet by mouth every 6 hours as needed for Pain, Severe (can take 1/2 tab, 25 mg, for moderate pain, continaution of pain therapy). 20 Tablet 09/10/2023 Active Acetaminophen 325 MG Oral Tablet (Tylenol) Take 3 Tablets by mouth every 6 hours. 30 Tablet 09/10/2023 Active Vitamin 27-0.8 MG Oral Tablet Take 1 Tablet by mouth daily at noon. 60 Tablet 09/10/2023 Active documented as of this encounter (statuses as of 09/18/2023) Active Problems Problem Noted Date Diagnosed Date [...] fasting glucose 12/07/2021 TMJ (temporomandibular joint disorder) Overview: Rt > Lt Dermatophytosis of nail 10/11/2018 Other chronic sinusitis 03/22/2017 Advance directive on file 09/08/2015 Hyperlipidemia with target LDL less than 100 06/2014 Overview: ICD-10 update of inactive term Asymptomatic bilateral carotid artery stenosis 0 08/22/2013 Acquired hypothyroidism 05/16/2013 Status post placement of cardiac pacemaker Overview: for 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 documented as of this encounter (statuses as of 09/18/2023) Resolved Problems Problem Noted Date Diagnosed Date Resolved Date Encounter for examination fo r normal comparison and control in clinical research program 07/26/2017 09/30/2019 Overview: DO NOT DELETE [facility] DETECT Study: Project # [id number], Liquor Merchant: Eric Magana, PhD. SUMMARY: Goal: Establish test [...] contact study staff at ; after hours Liquor Merchant via the [facility] hospital grinder set up operator jig . Please contact study team before resolving/deleting from patients problem list. Study phone number: [phone]. Diagnosis changed due to Research Module. Go to Snapshot for study details. Encounter for examination fo r normal comparison and control in clinical research program 07/26/2017 10/28/2021 Overview: DO NOT DELETE - [facility] NATE Study: Project # [id number], Liquor Merchant: Jordan Umana, MS, MPH. SUMMARY: Goal: Establish [...] contact study staff at ; after hours Liquor Merchant via the [facility] hospital grinder set up operator jig . - Please contact study team before resolving/deleting from patients problem list. Study phone number: [phone]. Diagnosis changed due to Research Module. Go to Snapshot for study details. Prediabetes 04/11/2017 05/09/2019 Overview: Per Prediabetes protocol #1 documented as of this encounter (statuses as of 09/18/2023) Immunizations Name Administration Dates Next Due COVID-19 [...] as of this encounter Progress Notes * Ranjeet Chowdhury Jr., MD - 09/18/2023 10:04 AM EDT I performed a history and physical examination of the patient and discussed the management with theresidentDiomedes MD. I reviewed the resident's note and agree with the documented findings and plan of care. Attending Attestation: I have discussed the patient's management with the medical trainee and agree with the note. Please refer to the documented findings and plan of care. This patient's visit today consisted of an evaluation. I was present and confirmed the findings of the history and exam. Ranjeet Chowdhury Jr, MD 09/18/2023 documented in this encounter Plan of Treatment Upcoming Encounters Date Type Department Care Team (Late st Contact Info) Description 09/26/2023 3:00 PM EDT Telemedicine General Surgery, [address] [address] [facility] [place], Trauma Clinic [facility] [place] [address] 10/16/2023 9:45 AM EDT Office Visit Orthopaedics, [address] [address] Ranjeet Chowdhury Jr., MD [facility] [place] [address] 12/22/2023 2:00 PM EDT Office Visit General Internal Medicine [facility] [address] [facility] [address] [place], [place] [address] Yamini Piper MD 200 [place] [address] 02/01/2024 10:00 AM EST Cardiac Studies Cardiology, [facility] [address] [facility] Pacer [facility] 132 [facility] [place] [address] Scheduled Procedures Name Priority Associated Diagnoses Date/Ti [...] this encounter Medical Devices Implanted Type Area Spot Welder Device Identifier Shelf Expiration Date Model / Serial / Lot Plate Lcp Pilon 3.5 7h 240.082 - [id number] Implanted:Qty: 1 on 09/05/2023 by Trenton Nunez, Ranjeet Drake MD at [place] [facility] Right: Pelvis SYNTHES 240.082 / / Hip Head V40 Taper C C 222 0 - [id number] Implanted:Qty: 1 on 09/05/2023 by Ranjeet Chowdhury Jr., MD at OR [facility] Right: Hip TONI : ORTHOPAEDICS 07/09/2028 6260-4-122 / / [id number] Screw Selftap 3.5x36 204.836 - [id number] Implanted:Qty: 2 on 09/05/2023 by Ranjeet Chowdhury Jr., MD at [place] [facility] Right: Pelvis SYNTHES 204.836 / / Screw Selftap 3.5x20 204.820 - [id number] Implanted:Qty: 2 on 09/05/2023 by Ranjeet Chowdhury Jr., MD at OR [facility] Right: Pelvis SYNTHES 204.820 / / Implant Hip Acetab Shell 50d - [id number] Implanted:Qty: 1 on 09/05/2023 by Ranjeet Chowdhury Jr., MD at OR [facility] Right: Hip TONI : ORTHOPAEDICS 11/28/2026 709-04-50D / / [id number] Screw Low Profile 6.4fit40tk - [id number] Implanted:Qty: 1 on 09/05/2023 by Ranjeet Chowdhury Jr., MD at OR [facility] Right: Hip TONI : ORTHOPAEDICS 04/05/2028 3774-6523 / / [id number] Screw Low Profile 6.5yqt91ja - [id number] Implanted:Qty: 1 on 09/05/2023 by Ranjeet Chowdhury Jr., MD at OR [facility] Right: Hip TONI : ORTHOPAEDICS 04/03/2028 6902-6315 / / GBCA Hip Liner Mdm Cocr 38 D - [id number] Implanted:Qty: 1 on 09/05/2023 by Ranjeet Chowdhury Jr., MD at OR [facility] Right: Hip TONI : ORTHOPAEDICS 07/24/2028 626-00-38D / / [id number] Implant Stem Hip Colr Std 2 - [id number] Implanted:Qty: 1 on 09/05/2023 by Ranjeet Chowdhury Jr., MD at OR [facility] Right: Hip TONI : ORTHOPAEDICS 03/13/2027 6530-7406 / / [id number] Mdm X3 [facility] Liner 22x44 - [id number] Implanted:Qty: 1 on 09/05/2023 by Ranjeet Chowdhury Jr., MD at [place] [facility] Right: Hip TONI : ORTHOPAEDICS 09/15/2027 7236-2-244 / / [id number] documented as of this encounter Visit Diagnoses Diagnosis Closed displaced fracture of posterior wall of right acetabulum, initial encounter (HCC)- Primary documented in this encounter Advance Directives * [...] Agen t (per Health Care Power of Cardiac Catheterization Technologist document) Care Teams Hedge Fund Principal Relationship Specialty Start Date End Date Yamini Piper MD [address] [place] [address] PCP - General Internal Medicine 05/03/18 documented as of this encounter
--- OUTSIDE RECORDS SUMMARY | 2023-09-28 01:24 | External Medical Summary ---
Author Name Unknown Address Unknown Organization K09:[facility] [place] [address] Laboratory Report Ordering Provider Test Date Status HY,DEPAMPHILIS 09/18/2023 06:07:08 Final Observation Date Value Abnormality Reference (Units ) Status BUN 09/18/2023 06:07:08 16 6-20 (mg/dL) Final Creatinine 09/18/2023 06:07:08 0.6 0.5-1.0 (mg/dL) Final Glomerular filtration rate/1.73 sq M.predicted [Volume Rate/Area] in Serum, Plasma or Blood by Creatinine-based formula (CKD-EPI) 09/18/2023 06:07:08 >90 >=60 (mL/min) Final eGFR is calculated based on the CKD-EPI 2020 equation. Sodium 09/18/2023 06:07:08 140 135-146 (m mol/L) Final Potassium 09/18/2023 06:07:08 4.3 3.5-5.1 (m mol/L) Final Cl 09/18/2023 06:07:08 106 98-107 (mm ol/L) Final CO2 09/18/2023 06:07:08 22 22-32 (mmo l/L) Final Anion gap 09/18/2023 06:07:08 12 7-15 (mmol /L) Final Glucose 09/18/2023 06:07:08 99 70-120 (mg /dL) Final Calcium 09/18/2023 06:07:08 8.3 Below low normal 8.4 -10.2 (mg/dL) Final Performing Location [facility] [place] [place] [address]
--- OUTSIDE RECORDS SUMMARY | 2023-09-28 01:24 | External Medical Summary | Summary of Care ---
Author Name Unknown Organization [facility] Address [address] [place] [address] Phone [phone] Care Team Providers Care Soldering Machine Operator Helper Name Role Phone Yamini Piper MD Primary Care Provider [phone] Encounter Details Date Type Department Care Team (Late st Contact Info) Description 09/12/2023 Patient Reported Data Patient Survey Ortho [facility] Allergies Active Allergy Reactions Criticality Noted Date Comments Pollen 06/17/2014 Nasal congestion documented as of this encounter (statuses as of 09/12/2023) Medications Medication Sig Dispensed Refills Start Date [...] as of this encounter (statuses as of 09/12/2023) Active Problems Problem Noted Date Diagnosed Date [...] as of this encounter (statuses as of 09/12/2023) Resolved Problems Problem Noted Date Diagnosed Date Resolved Date Encounter for examination fo r normal comparison and control in clinical research program 07/26/2017 09/30/2019 Overview: DO NOT DELETE [employer] DETECT Study: Project # [id number], Environment Coordinator: Eric Magana, PhD. SUMMARY: Goal: Establish test [...] contact study staff at ; after hours Environment Coordinator via the [facility] hospital delimber operator . Please contact study team before resolving/deleting from patients problem list. Study phone number: [phone]. Diagnosis changed due to Research Module. Go to Snapshot for study details. Encounter for examination fo r normal comparison and control in clinical research program 07/26/2017 10/28/2021 Overview: DO NOT DELETE - [employer] DETECT Study: Project # [id number], Environment Coordinator: Jordan Umana, MS, MPH. SUMMARY: Goal: Establish [...] contact study staff at ; after hours Environment Coordinator via the [facility] hospital delimber operator . - Please contact study team before resolving/deleting from patients problem list. Study phone number: [phone]. Diagnosis changed due to Research Module. Go to Snapshot for study details. Prediabetes 04/11/2017 05/09/2019 Overview: Per Prediabetes protocol #1 documented as of this encounter (statuses as of 09/12/2023) Immunizations Name Administration Dates Next Due COVID-19 [...] Description 09/18/2023 9:00 AM EDT Office Visit Orthopaedics, [place] [address] [place] [address] Trenton Nunez, Ranjeet Drake MD [address] [place] [address] 09/26/2023 3:00 PM EDT Telemedicine General Surgery, [place] [address] [place] [address], Trauma Clinic [address] [place] [address] 12/22/2023 2:00 PM EDT Office Visit General Internal Medicine [facility] [address] [place] [address] Yamini Piper MD [address] [place] [address] 02/01/2024 10:00 AM EST Cardiac Studies Cardiology, [facility] 132 [place] [address] Alex Pacer [facility] 132 [facility] [place] [address] Scheduled Procedures Name Priority Associated Diagnoses Date/Ti [...] Additional history exists DXA Scan 08/13/2027 08/12/2020, 06/10/2013, 08/05/2013 DTaP,Tdap,and Td Vaccines (2 - Td [...] this encounter Medical Devices Implanted Type Area Director Network Development Device Identifier Shelf Expiration Date Model / Serial / Lot Plate Lcp Pilon 3.5 7h 240.082 - [id number] Implanted:Qty: 1 on 09/05/2023 by Ranjeet Chowdhury Jr., MD at OR [facility] Right: Pelvis SYNTHES 240.082 / / Hip Head V40 Taper C C 222 0 - [id number] Implanted:Qty: 1 on 09/05/2023 by Ranjeet Chowdhury Jr., MD at OR [facility] Right: Hip TONI : ORTHOPAEDICS 07/09/2028 6260-4-122 / / [id number] Screw Selftap 3.5x36 204.836 - [id number] Implanted:Qty: 2 on 09/05/2023 by Ranjeet Chowdhury Jr., MD at OR [facility] Right: Pelvis SYNTHES 204.836 / / Screw Selftap 3.5x20 204.820 - [id number] Implanted:Qty: 2 on 09/05/2023 by Ranjeet Chowdhury Jr., MD at OR [facility] Right: Pelvis SYNTHES 204.820 / / Implant Hip Acetab Shell 50d - [id number] Implanted:Qty: 1 on 09/05/2023 by Ranjeet Chowdhury Jr., MD at OR [facility] Right: Hip TONI : ORTHOPAEDICS 11/28/2026 709-04-50D / / [id number] Screw Low Profile 6.7szh26lq - [id number] Implanted:Qty: 1 on 09/05/2023 by Ranjeet Chowdhury Jr., MD at OR [facility] Right: Hip TONI : ORTHOPAEDICS 04/05/2028 3255-5068 / / GDBJ Screw Low Profile 6.2juz49ki - [id number] Implanted:Qty: 1 on 09/05/2023 by Ranjeet Chowdhury Jr., MD at OR [facility] Right: Hip TONI : ORTHOPAEDICS 04/03/2028 0521-6526 / / GBCA Hip Liner Mdm Cocr 38 D - [id number] Implanted:Qty: 1 on 09/05/2023 by Ranjeet Chowdhury Jr., MD at OR [facility] Right: Hip TONI : ORTHOPAEDICS 07/24/2028 626-00-38D / / [id number] Implant Stem Hip Colr Std 2 - [id number] Implanted:Qty: 1 on 09/05/2023 by Ranjeet Chowdhury Jr., MD at OR [facility] Right: Hip TONI : ORTHOPAEDICS 03/13/2027 2766-9290 / / [id number] Mdm X3 Inser Liner 22x44 - [id number] Implanted:Qty: 1 on 09/05/2023 by Ranjeet Chowdhury Jr., MD at OR [facility] Right: Hip TONI : ORTHOPAEDICS 09/15/2027 7236-2-244 / / [id number] documented as of this encounter Advance Directives * Full Code (Latest Code Status on File) Date Activated Date Inactivated Comments 09/05/2023 3:03 AM 09/10/2023 3:03 PM This order re flects the patients wishes and were consensually agreed upon. Does not want trach / peg. Question Answer Comments Discussion of Advance Directives occurred with: Patient Healthcare Agents on File Name Relationship Healthcare Agent [facility] Communication Erika Brandt Adult Child Health Care Agen t (per Health Care Power of Aerial Tram Operator document) Care Teams Soldering Machine Operator Helper Relationship Specialty Start Date End Date Yamini Piper MD [address] [place] [address] PCP - General Internal Medicine 05/03/18 documented as of this encounter
--- OUTSIDE RECORDS SUMMARY | 2023-09-28 01:24 | External Medical Summary ---
Author Name Unknown Address Unknown Organization K09:[facility] [place] [address] Laboratory Report Ordering Provider Test Date Status SANJAY BAZANSAMSON 09/25/2023 12:39:59 Final Match trauma appointment<br/ >Discharge Order Observation Date Value Abnormality Reference (Units ) Status WBC, Total 09/25/2023 12:39:59 5.89 4.00-10.8 0 (K/uL) Final RBC 09/25/2023 12:39:59 2.58 3.85-5.15 (M/uL) Final Hemoglobin 09/25/2023 12:39:59 8.4 Below low normal 12 .0-15.3 (g/dL) Final HCT 09/25/2023 12:39:59 27.2 Below low normal 36. 0-45.2 (%) Final MCV 09/25/2023 12:39:59 105.4 81.5-97.5 (fL) Final MCH 09/25/2023 12:39:59 32.6 27.0-34.0 (pg) Final MCHC 09/25/2023 12:39:59 30.9 32.0-36.0 (g/dL) Final RDW 09/25/2023 12:39:59 19.0 11.5-15.5 (%) Final Platelets 09/25/2023 12:39:59 343 140-400 (K /uL) Final MPV 09/25/2023 12:39:59 9.6 6.6-11.1 ( fL) Final Performing Location [facility] [place] [address]
--- OUTSIDE RECORDS SUMMARY | 2023-09-28 01:24 | External Medical Summary | Summary of Care ---
Author Name Unknown Organization [facility] Address [address] [place] [address] Phone [phone] Care Team Providers Care Cafe Aide Name Role Phone Yamini Piper MD Primary Care Provider [phone] Encounter Details Date Type Department Care Team [...] program 07/26/2017 09/30/2019 Overview: DO NOT DELETE [employer] DETECT Study: Project # [id number], Restoration Ecologist: Eric Magana, PhD. SUMMARY: Goal: Establish test [...] contact study staff at ; after hours Restoration Ecologist via the [facility] hospital crop setting out machine operator . Please contact study team before resolving/deleting from patients problem list. Study phone number: [phone]. Diagnosis changed due to Research Module. Go to Snapshot for study details. Encounter for examination fo r normal comparison and control in clinical research program 07/26/2017 10/28/2021 Overview: DO NOT DELETE - [employer] DETECT Study: Project # [id number], Restoration Ecologist: Jordan Umana, MS, MPH. SUMMARY: Goal: Establish [...] contact study staff at ; after hours Restoration Ecologist via the [facility] hospital crop setting out machine operator . - Please contact study team before resolving/deleting from patients problem list. Study phone number: [phone]. Diagnosis changed due to Research Module. Go [...] 09/18/2023 9:00 AM EDT Office Visit Orthopaedics, [place] [address] [place] [address] Trenton Nunez, Ranjeet Drake MD [address] [place] [address] 09/26/2023 3:00 PM EDT Telemedicine General Surgery, [place] [address] [place] [address], Trauma Clinic [address] [place] [address] 12/22/2023 2:00 PM EDT Office Visit General Internal Medicine [facility] [address] [place] [address] Yamini Piper MD [address] [place] [address] 02/01/2024 10:00 AM EST Cardiac Studies Cardiology, [facility] 132 [place] [address] Alex Pacer [facility] 132 [facility] [place] [address] Scheduled Procedures Name Priority Associated Diagnoses Date/Ti [...] this encounter Medical Devices Implanted Type Area Adult School Teacher Device Identifier Shelf Expiration Date Model / Serial / Lot Plate Lcp Pilon 3.5 7h 240.082 - [id number] Implanted:Qty: 1 on 09/05/2023 by Ranjeet Chowdhury Jr., MD at OR [facility] Right: Pelvis SYNTHES 240.082 / / Hip Head V40 Taper C C 222 0 - [id number] Implanted:Qty: 1 on 09/05/2023 by Ranjeet Chowdhury Jr., MD at OR [facility] Right: Hip TONI : ORTHOPAEDICS 07/09/2028 6260-4-122 / / [id number] Screw Selftap 3.5x36 204.836 - [id number] Implanted:Qty: 2 on 09/05/2023 by Ranjeet Chowdhury Jr., MD at OR [facility] Right: Pelvis SYNTHES 204.836 / / Screw Selftap 3.5x20 204.820 - [id number] Implanted:Qty: 2 on 09/05/2023 by Ranjeet Chowdhury Jr., MD at OR [facility] Right: Pelvis SYNTHES 204.820 / / Implant Hip Acetab Shell 50d - [id number] Implanted:Qty: 1 on 09/05/2023 by Ranjeet Chowdhury Jr., MD at OR [facility] Right: Hip TONI : ORTHOPAEDICS 11/28/2026 709-04-50D / / [id number] Screw Low Profile 6.7nah25ht - [id number] Implanted:Qty: 1 on 09/05/2023 by Ranjeet Chowdhury Jr., MD at OR [facility] Right: Hip TONI : ORTHOPAEDICS 04/05/2028 0524-9267 / / [id number] Screw Low Profile 6.1neq28aq - [id number] Implanted:Qty: 1 on 09/05/2023 by Ranjeet Chowdhury Jr., MD at OR [facility] Right: Hip TONI : ORTHOPAEDICS 04/03/2028 6651-4948 / / GBCA Hip Liner Mdm Cocr 38 D - [id number] Implanted:Qty: 1 on 09/05/2023 by Ranjeet Chowdhury Jr., MD at OR [facility] Right: Hip TONI : ORTHOPAEDICS 07/24/2028 626-00-38D / / [id number] Implant Stem Hip Colr Std 2 - [id number] Implanted:Qty: 1 on 09/05/2023 by Ranjeet Chowdhury Jr., MD at OR [facility] Right: Hip TONI : ORTHOPAEDICS 03/13/2027 1989-2942 / / [id number] Mdm X3 Inser Liner 22x44 - [id number] Implanted:Qty: 1 on 09/05/2023 by Ranjeet Chowdhury Jr., MD at OR [facility] Right: Hip TONI : ORTHOPAEDICS 09/15/2027 7236-2-244 / / [id number] documented as of this encounter Advance Directives [...] File Name Relationship [facility] Agent [facility] Communication Erika Brandt Adult Child Health Care Agen t (per Health Care Power of Curb Builder document) Care Teams Cafe Aide Relationship Specialty Start Date End Date Yamini Piper MD [address] [place] [address] PCP - General Internal Medicine 05/03/18 documented as of this encounter
--- OUTSIDE RECORDS SUMMARY | 2023-09-28 01:24 | External Medical Summary ---
Author Name Unknown Address Unknown Organization K01:[facility] - [address] [facility] [place]. [facility] [address] Laboratory Report Ordering Provider Test Date Status EDNA CAMPBELLSILVIA 09/25/2023 12:39:59 Final Observation Date Value Abnormality Reference (Units ) Status Ferritin 09/25/2023 12:39:59 1040 Above high normal 13 -150 (ng/mL) Final Postmenopausal women have hi gher ferritin levels than pre-menopausal women. The above reference interval is based on pre-menopausal women. Performing Location [facility] - [address] [facility] [address]
--- OUTSIDE RECORDS SUMMARY | 2023-09-28 01:24 | External Medical Summary ---
Author Name Unknown Address Unknown Organization K09:[facility] [place] [address] Laboratory Report Ordering Provider Test Date Status HY,DEPAMPHILIS 09/18/2023 06:07:08 Final Observation Date Value Abnormality Reference (Units ) Status WBC, Total 09/18/2023 06:07:08 7.61 4.00-10.8 0 (K/uL) Final RBC 09/18/2023 06:07:08 2.57 3.85-5.15 (M/uL) Final Hemoglobin 09/18/2023 06:07:08 8.1 Below low normal 12 .0-15.3 (g/dL) Final HCT 09/18/2023 06:07:08 26.5 Below low normal 36. 0-45.2 (%) Final MCV 09/18/2023 06:07:08 103.1 81.5-97.5 (fL) Final MCH 09/18/2023 06:07:08 31.5 27.0-34.0 (pg) Final MCHC 09/18/2023 06:07:08 30.6 32.0-36.0 (g/dL) Final RDW 09/18/2023 06:07:08 19.9 11.5-15.5 (%) Final Platelets 09/18/2023 06:07:08 409 Above high normal 14 0-400 (K/uL) Final MPV 09/18/2023 06:07:08 10.4 6.6-11.1 ( fL) Final Performing Location [facility] [place] [address]
--- OUTSIDE RECORDS SUMMARY | 2023-09-28 01:24 | External Medical Summary ---
Author Name Unknown Address Unknown Organization K01:[facility] [place] [address] [facility] [address] Laboratory Report Ordering Provider Test Date Status SHANNANEDNASILVIA 09/25/2023 12:39:59 Final Observation Date Value Abnormality Reference (Units ) Status Calcium.ionized [Moles/volume] in Serum or Plasma by Ion-selective membrane electrode (ISE) 09/25/2023 12:39:59 1.20 1.13-1.32 (mmol/L) Final This test was developed and its performance characteristics dtermined by [employer]. It has not been cleared or approved by the US Food and Drug Administration Performing Location LABORATORY [place] [address] [place] [address]
--- OUTSIDE RECORDS SUMMARY | 2023-09-28 01:24 | External Medical Summary | Summary of Care ---
Author Name Unknown Organization [facility] Address [address] [place] [address] Phone [phone] Care Team Providers Care Diesel Pile Driver Operator Name Role Phone Yamini Piper MD Primary Care Provider [phone] Encounter Details Date Type Department Care Team [...] program 07/26/2017 09/30/2019 Overview: DO NOT DELETE [employer] DETECT Study: Project # [id number], Tax Collector: Eric Magana, PhD. SUMMARY: Goal: Establish test [...] contact study staff at ; after hours Tax Collector via the [facility] hospital welding machine operator gas metal arc . Please contact study team before resolving/deleting from patients problem list. Study phone number: [phone]. Diagnosis changed due to Research Module. Go to Snapshot for study details. Encounter for examination fo r normal comparison and control in clinical research program 07/26/2017 10/28/2021 Overview: DO NOT DELETE - [employer] DETECT Study: Project # [id number], Tax Collector: Jordan Umana, MS, MPH. SUMMARY: Goal: Establish [...] contact study staff at ; after hours Tax Collector via the [facility] hospital welding machine operator gas metal arc . - Please contact study team before resolving/deleting from patients problem list. Study phone number: [phone]. Diagnosis changed due to Research Module. Go [...] 09/18/2023 9:00 AM EDT Office Visit Orthopaedics, [place] [address] [place] [address] Trenton Nunez, Ranjeet Drake MD [address] [place] [address] 09/26/2023 3:00 PM EDT Telemedicine General Surgery, [place] [address] [place] [address] 620, [facility] [address] [place] [address] 12/22/2023 2:00 PM EDT Office Visit General Internal Medicine [facility] [address] [place] [address] Yamini Piper MD [address] [place] [address] 02/01/2024 10:00 AM EST Cardiac Studies Cardiology, [facility] [address] [place] [address] Alex Pacer [facility] 132 [facility] [place] [address] Scheduled Procedures Name Priority Associated Diagnoses Date/Ti [...] this encounter Medical Devices Implanted Type Area Footwear Sales Leader Device Identifier Shelf Expiration Date Model / Serial / Lot Plate Lcp Pilon 3.5 7h 240.082 - [id number] Implanted:Qty: 1 on 09/05/2023 by Ranjeet Chowdhury Jr., MD at [place] [facility] Right: Pelvis SYNTHES 240.082 / / Hip Head V40 Taper C C 222 0 - [id number] Implanted:Qty: 1 on 09/05/2023 by Ranjeet Chowdhury Jr., MD at OR [facility] Right: Hip TONI : ORTHOPAEDICS 07/09/2028 6260-4-122 / / [id number] Screw Selftap 3.5x36 204.836 - [id number] Implanted:Qty: 2 on 09/05/2023 by Ranjeet Chowdhury Jr., MD at OR [facility] Right: Pelvis SYNTHES 204.836 / / Screw Selftap 3.5x20 204.820 - [id number] Implanted:Qty: 2 on 09/05/2023 by Ranjeet Chowdhury Jr., MD at OR [facility] Right: Pelvis SYNTHES 204.820 / / Implant Hip Acetab Shell 50d - [id number] Implanted:Qty: 1 on 09/05/2023 by Ranjeet Chowdhury Jr., MD at OR [facility] Right: Hip TONI : ORTHOPAEDICS 11/28/2026 709-04-50D / / [id number] Screw Low Profile 6.3ota76us - [id number] Implanted:Qty: 1 on 09/05/2023 by Ranjeet Chowdhury Jr., MD at OR [facility] Right: Hip TONI : ORTHOPAEDICS 04/05/2028 8309-6925 / / GDBJ Screw Low Profile 6.6jhf39uo - [id number] Implanted:Qty: 1 on 09/05/2023 by Ranjeet Chowdhury Jr., MD at OR [facility] Right: Hip TONI : ORTHOPAEDICS 04/03/2028 6370-7136 / / GBCA Hip Liner Mdm Cocr 38 D - [id number] Implanted:Qty: 1 on 09/05/2023 by Ranjeet Chowdhury Jr., MD at OR [facility] Right: Hip TONI : ORTHOPAEDICS 07/24/2028 626-00-38D / / [id number] Implant Stem Hip Colr Std 2 - [id number] Implanted:Qty: 1 on 09/05/2023 by Ranjeet Chowdhury Jr., MD at OR [facility] Right: Hip TONI : ORTHOPAEDICS 03/13/2027 4639-0778 / / [id number] Mdm X3 Inser Liner 22x44 - [id number] Implanted:Qty: 1 on 09/05/2023 by Ranjeet Chowdhury Jr., MD at OR [facility] Right: Hip TONI : ORTHOPAEDICS 09/15/2027 7236-2-244 / / [id number] documented as of this encounter Advance Directives * Full Code (Latest Code Status on File) Date Activated Date Inactivated Comments 09/05/2023 3:03 AM 09/10/2023 3:03 PM This order re flects the patients wishes and were consensually agreed upon. Does not want trach / peg. Question Answer Comments Discussion of Advance Directives occurred with: Patient Healthcare Agents on File Name Relationship Healthcare Agent [facility] Communication Erika Brandt Adult Child Health Care Agen t (per Health Care Power of Fitting Room Associate document) Care Teams Diesel Pile Driver Operator Relationship Specialty Start Date End Date Yamini Piper MD [address] [place] [address] PCP - General Internal Medicine 05/03/18 documented as of this encounter
--- OUTSIDE RECORDS SUMMARY | 2023-09-28 01:25 | External Medical Summary | Summary of Care ---
Author Name Unknown Organization [facility] Address [address] [place] [address] Phone [phone] Care Team Providers Care Supervisor Lending Activities Name Role Phone Yamini Piper MD Primary Care Provider [phone] Encounter Details Date Type Department Care Team [...] program 07/26/2017 09/30/2019 Overview: DO NOT DELETE [employer] DETECT Study: Project # [id number], Mortgage Loan Funder: Eric Magana, PhD. SUMMARY: Goal: Establish test [...] contact study staff at ; after hours Mortgage Loan Funder via the [facility] hospital jetting machine operator . Please contact study team before resolving/deleting from patients problem list. Study phone number: [phone]. Diagnosis changed due to Research Module. Go to Snapshot for study details. Encounter for examination fo r normal comparison and control in clinical research program 07/26/2017 10/28/2021 Overview: DO NOT DELETE - [employer] DETECT Study: Project # [id number], Mortgage Loan Funder: Jordan Umana, MS, MPH. SUMMARY: Goal: Establish [...] contact study staff at ; after hours Mortgage Loan Funder via the [facility] hospital jetting machine operator . - Please contact study team before resolving/deleting from patients problem list. Study phone number: [phone]. Diagnosis changed due to Research Module. Go [...] 09/18/2023 9:00 AM EDT Office Visit Orthopaedics, [place] [address] [place] [address] Trenton Nunez, Ranjeet Drake MD [address] [place] [address] 09/26/2023 3:00 PM EDT Telemedicine General Surgery, [place] [address] [place] [address] 620, Trauma Clinic [address] [place] [address] 12/22/2023 2:00 PM EDT Office Visit General Internal Medicine [facility] [address] [place] [address] Yamini Piper MD [address] [place] [address] 02/01/2024 10:00 AM EST Cardiac Studies Cardiology, [facility] [address] [place] [address] Alex Pacer [facility] 132 [facility] [place] [address] Scheduled Procedures Name Priority Associated Diagnoses Date/Ti [...] this encounter Medical Devices Implanted Type Area Industrial Cook Device Identifier Shelf Expiration Date Model / Serial / Lot Plate Lcp Pilon 3.5 7h 240.082 - [id number] Implanted:Qty: 1 on 09/05/2023 by Ranjeet Chowdhury Jr., MD at OR [facility] Right: Pelvis SYNTHES 240.082 / / Hip Head V40 Taper C C 222 0 - [id number] Implanted:Qty: 1 on 09/05/2023 by Ranjeet Chowdhury Jr., MD at OR [facility] Right: Hip TONI : ORTHOPAEDICS 07/09/2028 6260-4-122 / / [id number] Screw Selftap 3.5x36 204.836 - [id number] Implanted:Qty: 2 on 09/05/2023 by Ranjeet Chowdhury Jr., MD at [place] [facility] Right: Pelvis SYNTHES 204.836 / / Screw Selftap 3.5x20 204.820 - [id number] Implanted:Qty: 2 on 09/05/2023 by Ranjeet Chowdhury Jr., MD at [place] [facility] Right: Pelvis SYNTHES 204.820 / / Implant Hip Acetab Shell 50d - [id number] Implanted:Qty: 1 on 09/05/2023 by Ranjeet Chowdhury Jr., MD at OR [facility] Right: Hip TONI : ORTHOPAEDICS 11/28/2026 709-04-50D / / [id number] Screw Low Profile 6.1xgf73td - [id number] Implanted:Qty: 1 on 09/05/2023 by Ranjeet Chowdhury Jr., MD at OR [facility] Right: Hip TONI : ORTHOPAEDICS 04/05/2028 6268-9476 / / GDBJ Screw Low Profile 6.4arp46ic - [id number] Implanted:Qty: 1 on 09/05/2023 by Ranjeet Chowdhury Jr., MD at OR [facility] Right: Hip TONI : ORTHOPAEDICS 04/03/2028 2297-2671 / / GBCA Hip Liner Mdm Cocr 38 D - [id number] Implanted:Qty: 1 on 09/05/2023 by Ranjeet Chowdhury Jr., MD at OR [facility] Right: Hip TONI : ORTHOPAEDICS 07/24/2028 626-00-38D / / [id number] Implant Stem Hip Colr Std 2 - [id number] Implanted:Qty: 1 on 09/05/2023 by Ranjeet Chowdhury Jr., MD at OR [facility] Right: Hip TONI : ORTHOPAEDICS 03/13/2027 7905-2033 / / [id number] Mdm X3 Inser Liner 22x44 - [id number] Implanted:Qty: 1 on 09/05/2023 by Ranjeet Chowdhury Jr., MD at OR [facility] Right: Hip TONI : ORTHOPAEDICS 09/15/2027 7236-2-244 / / [id number] documented as of this encounter Advance Directives [...] File Name Relationship Healthcare Agent [facility] Communication Erika Brandt Adult Child Health Care Agen t (per Health Care Power of Senior Wind Turbine Technician document) Care Teams Supervisor Lending Activities Relationship Specialty Start Date End Date Yamini Piper MD [address] [place] [address] PCP - General Internal Medicine 05/03/18 documented as of this encounter
--- OUTSIDE RECORDS SUMMARY | 2023-09-28 01:25 | External Medical Summary | Summary of Care ---
Author Name Unknown Organization [facility] Address [address] [place] [address] Phone [phone] Care Team Providers Care International Coordinator Name Role Phone Yamini Piper MD Primary Care Provider [phone] Encounter Details Date Type Department Care Team [...] program 07/26/2017 09/30/2019 Overview: DO NOT DELETE [employer] DETECT Study: Project # [id number], Digital Campaign Specialist: Eric Magana, PhD. SUMMARY: Goal: Establish [...] contact study staff at ; after hours Digital Campaign Specialist via the [facility] laundry machine operator . Please contact study team before resolving/deleting from patients problem list. Study phone number: [phone]. Diagnosis changed due to Research Module. Go to Snapshot for study details. Encounter for examination fo r normal comparison and control in clinical research program 07/26/2017 10/28/2021 Overview: DO NOT DELETE - [employer] DETECT Study: Project # [id number], Digital Campaign Specialist: Jordan Umana, MS, MPH. SUMMARY: Goal: [...] contact study staff at ; after hours Digital Campaign Specialist via the [facility] [place] [facility] laundry machine operator . - Please contact study team before resolving/deleting from patients problem list. Study phone number: [phone]. Diagnosis changed due to Research Module. Go [...] 09/18/2023 9:00 AM EDT Office Visit Orthopaedics, [place] [address] [place] [address] Trenton Nunez, Ranjeet Drake MD [address] [place] [address] 09/26/2023 3:00 PM EDT Telemedicine General Surgery, [place] [address] [place] [address] 620, Tra[facility] Clinic [address] [place] [address] 12/22/2023 2:00 PM EDT Office Visit General Internal Medicine [facility] [address] [place] [address] Yamini Piper MD [address] [place] [address] 02/01/2024 10:00 AM EST Cardiac Studies Cardiology, [facility] [address] [place] [address] Alex Pacer [facility] 132 [facility] [place] [address] Scheduled Procedures Name Priority Associated Diagnoses Date/Ti [...] this encounter Medical Devices Implanted Type Area Receiving Associate Store Device Identifier Shelf Expiration Date Model / Serial / Lot Plate Lcp Pilon 3.5 7h 240.082 - [id number] Implanted:Qty: 1 on 09/05/2023 by Ranjeet Chowdhury Jr., MD at [place] [facility] [place] Right: Pelvis SYNTHES 240.082 / / Hip Head V40 Taper C C 222 0 - [id number] Implanted:Qty: 1 on 09/05/2023 by Ranjeet Chowdhury Jr., MD at [place] [facility] [place] Right: Hip TONI : ORTHOPAEDICS 07/09/2028 6260-4-122 / / [id number] Screw Selftap 3.5x36 204.836 - [id number] Implanted:Qty: 2 on 09/05/2023 by Ranjeet Chowdhury Jr., MD at [place] [facility] [place] Right: Pelvis SYNTHES 204.836 / / Screw Selftap 3.5x20 204.820 - [id number] Implanted:Qty: 2 on 09/05/2023 by Ranjeet Chowdhury Jr., MD at [place] [facility] [place] Right: Pelvis SYNTHES 204.820 / / Implant Hip Acetab Shell 50d - [id number] Implanted:Qty: 1 on 09/05/2023 by Ranjeet Chowdhury Jr., MD at [place] [facility] [place] Right: Hip TONI : ORTHOPAEDICS 11/28/2026 709-04-50D / / [id number] Screw Low Profile 6.7uzm07ah - [id number] Implanted:Qty: 1 on 09/05/2023 by Ranjeet Chowdhury Jr., MD at [place] [facility] [place] Right: Hip TONI : ORTHOPAEDICS 04/05/2028 7558-1755 / / [id number] Screw Low Profile 6.3stj70nj - [id number] Implanted:Qty: 1 on 09/05/2023 by Ranjeet Chowdhury Jr., MD at [place] [facility] [place] Right: Hip TONI : ORTHOPAEDICS 04/03/2028 4387-1372 / / GBCA Hip Liner Mdm Cocr 38 D - [id number] Implanted:Qty: 1 on 09/05/2023 by Ranjeet Chowdhury Jr., MD at [place] [facility] [place] Right: Hip TONI : ORTHOPAEDICS 07/24/2028 626-00-38D / / [id number] Implant Stem Hip Colr Std 2 - [id number] Implanted:Qty: 1 on 09/05/2023 by Ranjeet Chowdhury Jr., MD at [place] [facility] [place] [facility] Right: Hip TONI : ORTHOPAEDICS 03/13/2027 6671-1299 / / [id number] Mdm X3 Inser Liner 22x44 - [id number] Implanted:Qty: 1 on 09/05/2023 by Ranjeet Chowdhury Jr., MD at [place] [facility] [place] Right: Hip TONI : ORTHOPAEDICS 09/15/2027 7236-2-244 / / [id number] documented as of this encounter Advance Directives * Full Code (Latest Code Status on File) Date Activated Date Inactivated Comments 09/05/2023 3:03 AM 09/10/2023 3:03 PM This order re flects the patients wishes and were consensually agreed upon. Does not want trach / peg. Question Answer Comments Discussion of Advance Directives occurred with: Patient Healthcare Agents on File Name Relationship Healthcare [facility] Erika Brandt Adult Child Health Care Agen t (per Health Care Power of Wool Washer document) Care Teams International Coordinator Relationship Specialty Start Date End Date Yamini Piper MD [address] [place] [address] PCP - General Internal Medicine 05/03/18 documented as of this encounter
--- OUTSIDE RECORDS SUMMARY | 2023-09-28 01:25 | External Medical Summary | Summary of Care ---
Author Name Unknown Organization [facility] Address [address] [place] [address] Phone [phone] Care Team Providers Care Merchandise Supervisor Name Role Phone Yamini Piper MD Primary Care Provider [phone] Encounter Details Date Type Department Care Team (Late st Contact Info) Description 09/11/2023 Population Health External Data Unspecified Department Allergies Active Allergy Reactions Criticality Noted Date Comments Pollen 06/17/2014 Nasal congestion documented as of this encounter (statuses as of 09/11/2023) Medications Medication Sig Dispensed Refills Start Date [...] as of this encounter (statuses as of 09/11/2023) Active Problems Problem Noted Date Diagnosed Date [...] as of this encounter (statuses as of 09/11/2023) Resolved Problems Problem Noted Date Diagnosed Date Resolved Date Encounter for examination fo r normal comparison and control in clinical research program 07/26/2017 09/30/2019 Overview: DO NOT DELETE [employer] DETECT Study: Project # [id number], Coil Winding Machines Set Up Mechanic: Eric Magana, PhD. SUMMARY: Goal: Establish test [...] contact study staff at ; after hours Co[employer] Mach[employer] Set Up Mechanic via the [facility] computer terminal operator . Please contact study team before resolving/deleting from patients problem list. Study phone number: [phone]. Diagnosis changed due to Research Module. Go to Snapshot for study details. Encounter for examination fo r normal comparison and control in clinical research program 07/26/2017 10/28/2021 Overview: DO NOT DELETE - [employer] DETECT Study: Project # [id number], Coil Winding Machines Set Up Mechanic: Jordan Umana, MS, MPH. SUMMARY: Goal: Establish [...] contact study staff at ; after hours Coil Winding Machines Set Up Mechanic via the [facility] computer terminal operator . - Please contact study team before resolving/deleting from patients problem list. Study phone number: [phone]. Diagnosis changed due to Research Module. Go to Snapshot for study details. Prediabetes 04/11/2017 05/09/2019 Overview: Per Prediabetes protocol #1 documented as of this encounter (statuses as of 09/11/2023) Immunizations Name Administration Dates Next Due COVID-19 [...] 09/18/2023 9:00 AM EDT Office Visit Orthopaedics, [place] [address] [place] [address] Trenton Nunez, Ranjeet Drake MD [address] [place] [address] 09/26/2023 3:00 PM EDT Telemedicine General Surgery, [place] [address] [place] [address] 620, Tra[facility] Clinic [address] [place] [address] 12/22/2023 2:00 PM EDT Office Visit General Internal Medicine [facility] [address] [place] [address] Yamini Piper MD [address] [place] [address] 02/01/2024 10:00 AM EST Cardiac Studies Cardiology, [facility] [address] [place] [address] Alex Pacer [facility] 132 [facility] [place] [address] Scheduled Procedures Name Priority Associated Diagnoses Date/Ti [...] Additional history exists DXA Scan 08/13/2027 08/12/2020, 0610/2013, 08/05/2013 DTaP,Tdap,and Td Vaccines (2 - Td [...] this encounter Medical Devices Implanted Type Area Infantry Senior Sergeant Device Identifier Shelf Expiration Date Model / Serial / Lot Plate Lcp Pilon 3.5 7h 240.082 - [id number] Implanted:Qty: 1 on 09/05/2023 by Ranjeet Chowdhury Jr., MD [place] [facility] [place]: Pelvis SYNTHES 240.082 / / Hip Head V40 Taper C C 222 0 - [id number] Implanted:Qty: 1 on 09/05/2023 by Ranjeet Chowdhury Jr., MD [place] [facility] [place]: Hip TONI : ORTHOPAEDICS 07/09/2028 6260-4-122 / / [id number] Screw Selftap 3.5x36 204.836 - [id number] Implanted:Qty: 2 on 09/05/2023 by Ranjeet Chowdhury Jr., MD at [place] [facility] Right: Pelvis SYNTHES 204.836 / / Screw Selftap 3.5x20 204.820 - [id number] Implanted:Qty: 2 on 09/05/2023 by Ranjeet Chowdhury Jr., MD at [place] [facility] [place]: Pelvis SYNTHES 204.820 / / Implant Hip Acetab Shell 50d - [id number] Implanted:Qty: 1 on 09/05/2023 by Ranjeet Chowdhury Jr., [place] [facility] [place]: Hip TONI : ORTHOPAEDICS 11/28/2026 709-04-50D / / [id number] Screw Low Profile 6.5xiz93ju - [id number] Implanted:Qty: 1 on 09/05/2023 by Ranjeet Chowdhury Jr., [place] [facility] [place] [place]: Hip TONI : ORTHOPAEDICS 04/05/2028 5469-1536 / / GDBJ Screw Low Profile 6.1xsd17ov - [id number] Implanted:Qty: 1 on 09/05/2023 by Ranjeet Chowdhury Jr., MD [place] [facility] [place]: Hip TONI : ORTHOPAEDICS 04/03/2028 0450-5563 / / GBCA Hip Liner Mdm Cocr 38 D - [id number] Implanted:Qty: 1 on 09/05/2023 by Ranjeet Chowdhury Jr., [place] [facility] [place] [place]: Hip TONI : ORTHOPAEDICS 07/24/2028 626-00-38D / / [id number] Implant Stem Hip Colr Std 2 - [id number] Implanted:Qty: 1 on 09/05/2023 by Ranjeet Chowdhury Jr., MD [place] [facility] [place] [place]: Hip TONI : ORTHOPAEDICS 03/13/2027 6714-1753 / / [id number] Mdm X3 Inser Liner 22x44 - [id number] Implanted:Qty: 1 on 09/05/2023 by Ranjeet Chowdhury Jr., MD at [place] [facility] [place]: Hip TONI : ORTHOPAEDICS 09/15/2027 7236-2-244 / / [id number] documented as of this encounter Advance Directives [...] Agen t (per Health Care Power of Legal Administrative Assistant document) Care Teams Merchandise Supervisor Relationship Specialty Start Date End Date Yamini Piper MD [address] [place] [address] PCP - General Internal Medicine 05/03/18 documented as of this encounter
--- OUTSIDE RECORDS SUMMARY | 2023-09-28 01:25 | External Medical Summary | Summary of Care ---
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 RDW 15.2 11.5 - 15.5 % 09/08/2023 9:47 PM EDT LAB[facility]ATORY [facility] PLT 89(L) 140 - 400 K/uL 09/08/2023 9:47 PM EDT LAB[facility]ATORY [facility] MPV 12.0 6.6 - 11.1 fL 09/08/2023 9:47 PM EDT LABORATORY [facility] nRBCs 0 <=0 /100 WBCs 09/08/2023 9:47 PM EDT LAB[facility]ATORY [facility] Blood Capillary blood specimen / Unknown Capillary / Unknown 09/08/2023 8:46 PM EDT 09/08/2023 8:51 PM EDT Farnaz Vasquez MD LAB BLOOD ORDERABLES LABORATORY [facility] [address] [place] [address] * (ABNORMAL) CBC (09/08/2023 4:24 AM EDT) WBC 8.26 4.00 - 10.80 K/uL 09/08/2023 4:48 AM EDT LAB[facility]ATORY [facility] RBC 2.75 3.85 - 5.15 M/uL 09/08/2023 4:48 AM EDT LABORATORY [facility] HGB 8.4(L) 12.0 - 15.3 g/dL 09/08/2023 4:48 AM EDT LABORATORY [facility] HCT 25.5(L) 36.0 - 45.2 % 09/08/2023 4:48 AM EDT LABORATORY [facility] MCV 92.7 81.5 - 97.5 fL 09/08/2023 4:48 AM EDT LABORATORY [facility] MCH 30.5 27.0 - 34.0 pg 09/08/2023 4:48 AM EDT LAB[facility]ATORY [facility] MCHC 32.9 32.0 - 36.0 g/dL 09/08/2023 4:48 AM EDT LABORATORY [facility] RDW 15.4 11.5 - 15.5 % 09/08/2023 4:48 AM EDT LABORATORY [facility] PLT 75(L) 140 - 400 K/uL 09/08/2023 4:48 AM EDT LABORATORY [facility] MPV 11.1 6.6 - 11.1 fL 09/08/2023 4:48 AM EDT LABORATORY [facility] nRBCs 0 <=0 /100 WBCs 09/08/2023 4:48 AM EDT LAB[facility]ATORY [facility] Blood Venous blood specimen / Unknown Venipuncture / Unknown 09/08/2023 4:24 AM EDT 09/08/2023 4:36 AM EDT Farnaz Vasquez MD LAB BLOOD ORDERABLES LABORATORY [facility] [address] [place] [address] * (ABNORMAL) PHOSPHORUS (09/08/2023 4:24 AM EDT) Phosphorus 1.9(L) 2.5 - 4.8 mg/dL 09/08/2023 5:05 AM EDT LAB[facility]ATORY [facility] Blood Venous blood specimen / Unknown Venipuncture / Unknown 09/08/2023 4:24 AM EDT 09/08/2023 4:36 AM EDT Baldo Thomas MD LAB BLOOD ORDERABLES LABORATORY [facility] [address] [place] [address] * MAGNESIUM (09/08/2023 4:24 AM EDT) Magnesium 2.2 1.5 - 2.6 mg/dL 09/08/2023 5:05 AM EDT LABORATORY [facility] Blood Venous blood specimen / Unknown Venipuncture / Unknown 09/08/2023 4:24 AM EDT 09/08/2023 4:36 AM EDT Baldo Thomas MD LAB BLOOD ORDERABLES Performing Organization Address [facility] de Phone Number LABORATORY [facility] [address] [place] [address] * CALCIUM, IONIZED (09/08/2023 4:24 AM EDT) Calcium, Ionized 1.15 1.13 - 1.32 mmol/L 09/08/2023 4:56 AM EDT LABORATORY [facility] Comment:This test was develo ped and its performance characteristics dtermined by [employer]. It has not been cleared or approved by the [place] Food and Drug Administration Blood Venous blood specimen / Unknown Venipuncture / Unknown 09/08/2023 4:24 AM EDT 09/08/2023 4:36 AM EDT Baldo Thomas MD LAB BLOOD ORDERABLES Performing Organization Address [facility] de Phone Number LABORATORY [place] [address] [place] [address] * (ABNORMAL) BASIC METABOLIC PANEL (09/08/2023 4:24 AM EDT) BUN 11 6 - 20 mg/dL 09/08/2023 5:05 AM EDT LABORATORY [facility] Creatinine 0.7 0.5 - 1.0 mg/dL 09/08/2023 5:05 AM EDT LABORATORY [facility] Estimated Glomerular Filtration Rate 89 >=60 mL/min 09/08/2023 5:05 AM EDT LABORATORY [facility] Comment:eGFR is calculated b ased on the CKD-EPI 2020 equation Sodium 139 135 - 146 mmol/L 09/08/2023 5:05 AM EDT LABORATORY [facility] Potassium 4.0 3.5 - 5.1 mmol/L 09/08/2023 5:05 AM EDT LABORATORY [facility] Chloride 107 98 - 107 mmol/L 09/08/2023 5:05 AM EDT LABORATORY [facility] CO2 23 22 - 32 mmol/L 09/08/2023 5:05 AM EDT LABORATORY [facility] Anion Gap 9 7 - 15 mmol/L 09/08/2023 5:05 AM EDT LABORATORY [facility] Glucose 113 70 - 120 mg/dL 09/08/2023 5:05 AM EDT LABORATORY [facility] Calcium 7.7(L) 8.4 - 10.2 mg/dL 09/08/2023 5:05 AM EDT LABORATORY [facility] Blood Venous blood specimen / Unknown Venipuncture / Unknown 09/08/2023 4:24 AM EDT 09/08/2023 4:36 AM EDT Baldo Thomas MD LAB BLOOD ORDERABLES LABORATORY [facility] [address] [place] [address] * (ABNORMAL) CBC (09/07/2023 5:20 PM EDT) Pathologist [facility] WBC 10.16 4.00 - 10.80 K/uL 09/07/2023 5:34 PM EDT LABORATORY [facility] RBC 3.08 3.85 - 5.15 M/uL 09/07/2023 5:34 PM EDT LABORATORY [facility] HGB 9.4(L) 12.0 - 15.3 g/dL 09/07/2023 5:34 PM EDT LABORATORY [facility] HCT 27.6(L) 36.0 - 45.2 % 09/07/2023 5:34 PM EDT LABORATORY [facility] MCV 89.6 81.5 - 97.5 fL 09/07/2023 5:34 PM EDT LABORATORY [facility] MCH 30.5 27.0 - 34.0 pg 09/07/2023 5:34 PM EDT LABORATORY [facility] MCHC 34.1 32.0 - 36.0 g/dL 09/07/2023 5:34 PM EDT LABORATORY [facility] RDW 14.9 11.5 - 15.5 % 09/07/2023 5:34 PM EDT LABORATORY [facility] PLT 73(L) 140 - 400 K/uL 09/07/2023 5:34 PM EDT LABORATORY [facility] MPV 11.0 6.6 - 11.1 fL 09/07/2023 5:34 PM EDT LABORATORY [facility] nRBCs 0 <=0 /100 WBCs 09/07/2023 5:34 PM EDT LABORATORY [facility] Blood Venous blood specimen / Unknown Venipuncture / Unknown 09/07/2023 5:20 PM EDT 09/07/2023 5:25 PM EDT Farnaz Vasquez MD LAB BLOOD ORDERABLES LABORATORY [facility] [address] [place] [address] * TRANSFUSE PACKED RED BLOOD CELLS (09/07/2023 2:28 PM EDT) Farnaz Vasquez MD BLD BANK TRANFUSE OR DERABLES * TRANSFUSE PACKED RED BLOOD CELLS (09/07/2023 2:28 PM EDT) Farnaz Vasquez MD BLD BANK TRANFUSE OR DERABLES * PREPARE PACKED RED BLOOD CELLS (09/07/2023 9:55 AM EDT) [facility] Unit Product Code [id number] 09/08/2023 2:10 PM EDT LABORATORY [facility] BLOOD BANK Unit Number [id number] 09/08/2023 2:10 PM EDT LABORATORY C BLOOD BANK Unit ABO O 09/08/2023 2:10 PM EDT LABORATORY C BLOOD BANK Unit Rh POS 09/08/2023 2:10 PM EDT LABORATORY [facility] BLOOD BANK Unit Crossmatch Compatible 09/07/2023 10:14 AM EDT LABORATORY C BLOOD BANK Unit Status PT 09/08/2023 2:10 PM EDT LABORATORY [facility] BLOOD BANK Unit Blood Type OPOS 09/08/2023 2:10 PM EDT LABORATORY [facility] BLOOD BANK Unit Expiration [id number] 09/08/2023 2:10 PM EDT LABORATORY [facility] BLOOD BANK Unit Barcode [id number] 09/08/2023 2:10 PM EDT LABORATORY [facility] BLOOD BANK 09/07/2023 9:55 AM EDT Farnaz Vasquez MD BLD BANK PRODUCT ORD ERABLES LABORATORY [facility] BLOOD BANK [address] [place] [address] * (ABNORMAL) CBC (09/07/2023 4:48 AM EDT) WBC 9.82 4.00 - 10.80 K/uL 09/07/2023 5:11 AM EDT LABORATORY [facility] RBC 2.61 3.85 - 5.15 M/uL 09/07/2023 5:11 AM EDT LABORATORY [facility] HGB 8.1(L) 12.0 - 15.3 g/dL 09/07/2023 5:11 AM EDT LABORATORY [facility] HCT 24.0(L) 36.0 - 45.2 % 09/07/2023 5:11 AM EDT LABORATORY [facility] MCV 92.0 81.5 - 97.5 fL 09/07/2023 5:11 AM EDT LABORATORY [facility] MCH 31.0 27.0 - 34.0 pg 09/07/2023 5:11 AM EDT LABORATORY [facility] MCHC 33.8 32.0 - 36.0 g/dL 09/07/2023 5:11 AM EDT LABORATORY [facility] RDW 14.5 11.5 - 15.5 % 09/07/2023 5:11 AM EDT LABORATORY [facility] PLT 74(L) 140 - 400 K/uL 09/07/2023 5:11 AM EDT LABORATORY [facility] MPV 10.9 6.6 - 11.1 fL 09/07/2023 5:11 AM EDT LABORATORY [facility] nRBCs 0 <=0 /100 WBCs 09/07/2023 5:11 AM EDT LABORATORY G[facility] Blood Venous blood specimen / Unknown Venipuncture / Unknown 09/07/2023 4:48 AM EDT 09/07/2023 4:57 AM EDT Raven Pedroza MD LAB BLOOD ORDERABLES LABORATORY [facility] [address] [place] [address] * (ABNORMAL) PHOSPHORUS (09/07/2023 4:48 AM EDT) Phosphorus 2.0(L) 2.5 - 4.8 mg/dL 09/07/2023 5:38 AM EDT LABORATORY [facility] Blood Venous blood specimen / Unknown Venipuncture / Unknown 09/07/2023 4:48 AM EDT 09/07/2023 4:57 AM EDT Baldo Thomas MD LAB BLOOD ORDERABLES Performing Organization Address [facility] Co de Phone Number LABORATORY [facility] [address] [place] [address] * MAGNESIUM (09/07/2023 4:48 AM EDT) Magnesium 2.2 1.5 - 2.6 mg/dL 09/07/2023 5:38 AM EDT LABORATORY [facility] Blood Venous blood specimen / Unknown Venipuncture / Unknown 09/07/2023 4:48 AM EDT 09/07/2023 4:57 AM EDT Baldo Thomas MD LAB BLOOD ORDERABLES Performing Organization Address [facility] de Phone Number LABORATORY [facility] [address] [place] [address] * CALCIUM, IONIZED (09/07/2023 4:48 AM EDT) Pathologist [facility] Calcium, Ionized 1.13 1.13 - 1.32 mmol/L 09/07/2023 5:19 AM EDT LABORATORY [facility] Comment:This test was develo ped and its performance characteristics dtermined by [employer]. It has not been cleared or approved by the [place] Food and Drug Administration Blood Venous blood specimen / Unknown Venipuncture / Unknown 09/07/2023 4:48 AM EDT 09/07/2023 4:57 AM EDT Baldo Thomas MD LAB BLOOD ORDERABLES Performing Organization Address City/[facility] Co de Phone Number LABORATORY [facility] [address] [place] [address] * (ABNORMAL) BASIC METABOLIC PANEL (09/07/2023 4:48 AM EDT) BUN 19 6 - 20 mg/dL 09/07/2023 5:38 AM EDT LABORATORY [facility] Creatinine 0.7 0.5 - 1.0 mg/dL 09/07/2023 5:38 AM EDT LABORATORY G[facility] Estimated Glomerular Filtration Rate 89 >=60 mL/min 09/07/2023 5:38 AM EDT LABORATORY [facility] Comment:eGFR is calculated b ased on the CKD-EPI 2020 equation Sodium 136 135 - 146 mmol/L 09/07/2023 5:38 AM EDT LABORATORY [facility] Potassium 3.9 3.5 - 5.1 mmol/L 09/07/2023 5:38 AM EDT LABORATORY [facility] Chloride 104 98 - 107 mmol/L 09/07/2023 5:38 AM EDT LABORATORY [facility] CO2 21(L) 22 - 32 mmol/L 09/07/2023 5:38 AM EDT LABORATORY G[facility] Anion Gap 11 7 - 15 mmol/L 09/07/2023 5:38 AM EDT LABORATORY G[facility] Glucose 142(H) 70 - 120 mg/dL 09/07/2023 5:38 AM EDT LABORATORY G[facility] Calcium 7.8(L) 8.4 - 10.2 mg/dL 09/07/2023 5:38 AM EDT LABORATORY C Blood Venous blood specimen / Unknown Venipuncture / Unknown 09/07/2023 4:48 AM EDT 09/07/2023 4:57 AM EDT Baldo Thomas MD LAB BLOOD ORDERABLES LABORATORY [facility] [address] [place] [address] * (ABNORMAL) CBC (09/06/2023 9:30 PM EDT) WBC 10.54 4.00 - 10.80 K/uL 09/06/2023 9:50 PM EDT LABORATORY [facility] RBC 2.65 3.85 - 5.15 M/uL 09/06/2023 9:50 PM EDT LABORATORY [facility] HGB 8.4(L) 12.0 - 15.3 g/dL 09/06/2023 9:50 PM EDT LABORATORY [facility] HCT 23.8(L) 36.0 - 45.2 % 09/06/2023 9:50 PM EDT LABORATORY [facility] MCV 89.8 81.5 - 97.5 fL 09/06/2023 9:50 PM EDT LABORATORY [facility] MCH 31.7 27.0 - 34.0 pg 09/06/2023 9:50 PM EDT LABORATORY [facility] MCHC 35.3 32.0 - 36.0 g/dL 09/06/2023 9:50 PM EDT LABORATORY [facility] RDW 14.5 11.5 - 15.5 % 09/06/2023 9:50 PM EDT LABORATORY [facility] PLT 71(L) 140 - 400 K/uL 09/06/2023 9:50 PM EDT LABORATORY [facility] MPV 11.5 6.6 - 11.1 fL 09/06/2023 9:50 PM EDT LABORATORY [facility] nRBCs 0 <=0 /100 WBCs 09/06/2023 9:50 PM EDT LABORATORY [facility] Blood Venous blood specimen / Unknown Venipuncture / Unknown 09/06/2023 9:30 PM EDT 09/06/2023 9:37 PM EDT Raven Pedroza MD LAB BLOOD ORDERABLES Performing Organization Address City/State/[facility] Co de Phone Number LABORATORY [facility] [address] [place] [address] * (ABNORMAL) CBC (09/06/2023 1:46 PM EDT) WBC 11.09(H) 4.00 - 10.80 K/uL 09/06/2023 2:04 PM EDT LABORATORY [facility] RBC 2.85 3.85 - 5.15 M/uL 09/06/2023 2:04 PM EDT LABORATORY [facility] HGB 8.7(L) 12.0 - 15.3 g/dL 09/06/2023 2:04 PM EDT LABORATORY [facility] HCT 25.7(L) 36.0 - 45.2 % 09/06/2023 2:04 PM EDT LABORATORY [facility] MCV 90.2 81.5 - 97.5 fL 09/06/2023 2:04 PM EDT LABORATORY [facility] MCH 30.5 27.0 - 34.0 pg 09/06/2023 2:04 PM EDT LABORATORY [facility] MCHC 33.9 32.0 - 36.0 g/dL 09/06/2023 2:04 PM EDT LABORATORY [facility] RDW 14.6 11.5 - 15.5 % 09/06/2023 2:04 PM EDT LABORATORY [facility] PLT 82(L) 140 - 400 K/uL 09/06/2023 2:04 PM EDT LABORATORY [facility] MPV 10.7 6.6 - 11.1 fL 09/06/2023 2:04 PM EDT LABORATORY [facility] nRBCs 0 <=0 /100 WBCs 09/06/2023 2:04 PM EDT LABORATORY [facility] Blood Venous blood specimen / Unknown Venipuncture / Unknown 09/06/2023 1:46 PM EDT 09/06/2023 1:56 PM EDT Raven Pedroza MD LAB BLOOD ORDERABLES Performing Organization Address City/State/[facility] Co de Phone Number LABORATORY [facility] [place] [address] [place] [address] * (ABNORMAL) URINALYSIS, REFLEX TO MICROSCOPIC (09/06/2023 11:59 AM EDT) Color, Urine Yellow Colorless, Light Yellow, Yellow, Dark Yellow 09/06/2023 12:24 PM EDT LABORATORY C Clarity, Urine Clear Clear 09/06/2023 12:24 PM EDT LABORATORY [facility] [place] Glucose, Urine Negative Negative mg/dL 09/06/2023 12:24 PM EDT LABORATORY [facility] [place] Bilirubin, Urine Negative Negative 09/06/2023 12:24 PM EDT LABORATORY [facility] [place] Ketone, Urine 80(A) Negative mg/dL 09/06/2023 12:24 PM EDT LABORATORY [facility] [place] Specific [place], Urine 1.038(H) 1.003 - 1.030 09/06/2023 12:24 PM EDT LABORATORY [facility] Blood, Urine Negative Negative 09/06/2023 12:24 PM EDT LABORATORY [facility] pH, Urine 6.0 5.0 - 7.5 Units 09/06/2023 12:24 PM EDT LABORATORY [facility] Protein, Urine 30(A) Negative mg/dL 09/06/2023 12:24 PM EDT LABORATORY [facility] Urobilinogen, Urine Normal Normal mg/dL 09/06/2023 12:24 PM EDT LABORATORY [facility] Nitrite, Urine Negative Negative 09/06/2023 12:24 PM EDT LABORATORY [facility] Esterase, Urine Negative Negative 09/06/2023 12:24 PM EDT LABORATORY [facility] RBC, Urine 0-2 0 - 2 /HPF 09/06/2023 12:24 PM EDT LABORATORY [facility] WBC, Urine 3-5(A) 0 - 2 /HPF 09/06/2023 12:24 PM EDT LABORATORY [facility] Bacteria, Urine 26-50(A) 0 - 25 /HPF 09/06/2023 12:24 PM EDT LABORATORY [facility] Hyaline, Cast, Urine 1-4(A) None /LPF 09/06/2023 12:24 PM EDT LABORATORY [facility] Urine Non-blood Collection / Unknown 09/06/2023 11:59 AM EDT 09/06/2023 12:06 PM EDT Farnaz Vasquez MD LAB URINE ORDERABLES Performing Organization Address City/[facility]/ZIP Co de Phone Number LABORATORY [facility] [place] [address] [place] [address] * LACTATE (09/06/2023 10:36 AM EDT) Lactate 1.1 0.4 - 2.0 mmol/L 09/06/2023 11:04 AM EDT LABORATORY [facility] [place] Blood Venous blood specimen / Unknown Venipuncture / Unknown 09/06/2023 10:36 AM EDT 09/06/2023 10:41 AM EDT Farnaz Vasquez MD LAB BLOOD ORDERABLES LABORATORY [facility] [address] [place] [address] * XR CHEST 1 VIEW (09/06/2023 10:14 AM EDT) Anatomical Region Laterality Modality Chest Computed Radiogr aphy 09/06/2023 11:3 3 AM EDT Impressions 09/06/2023 11:31 AM EDT IMPRESSION Lines/Tubes: Left-sided dual chamber pacemaker. Lungs/Pleura: No consolidation, pleural effusion, or pneumothorax. Heart/Mediastinum: Cardiomediastinal silhouette is within normal limits. Narrative 09/06/2023 11:31 AM EDT EXAM XR CHEST 1 VIEW-09/06/2023 10:14 am HISTORY fever COMPARISON 09/05/2023 TECHNIQUE Single frontal view of the chest. FINDINGS See impression below. Procedure Note Pacheco Feliz MD - 09/06/2023 EXAM XR CHEST 1 VIEW-09/06/2023 10:14 am HISTORY fever COMPARISON 09/05/2023 TECHNIQUE Single frontal view of the chest. FINDINGS See impression below. IMPRESSION IMPRESSION Lines/Tubes: Left-sided dual chamber pacemaker. Lungs/Pleura: No consolidation, pleural effusion, or pneumothorax. Heart/Mediastinum: Cardiomediastinal silhouette is within normal limits. Farnaz Vasquez MD RADIOLOGY (RAD GENER AL) * (ABNORMAL) CBC (09/06/2023 4:28 AM EDT) WBC 11.08(H) 4.00 - 10.80 K/uL 09/06/2023 5:15 AM EDT LABORATORY [facility] RBC 3.13 3.85 - 5.15 M/uL 09/06/2023 5:15 AM EDT LABORATORY [facility] HGB 9.7(L) 12.0 - 15.3 g/dL 09/06/2023 5:15 AM EDT LABORATORY [facility] HCT 29.4(L) 36.0 - 45.2 % 09/06/2023 5:15 AM EDT LABORATORY [facility] MCV 93.9 81.5 - 97.5 fL 09/06/2023 5:15 AM EDT LABORATORY [facility] MCH 31.0 27.0 - 34.0 pg 09/06/2023 5:15 AM EDT LABORATORY [facility] MCHC 33.0 32.0 - 36.0 g/dL 09/06/2023 5:15 AM EDT LABORATORY [facility] RDW 14.6 11.5 - 15.5 % 09/06/2023 5:15 AM EDT LABORATORY [facility] PLT 83(L) 140 - 400 K/uL 09/06/2023 5:15 AM EDT LABORATORY [facility] MPV 11.1 6.6 - 11.1 fL 09/06/2023 5:15 AM EDT LABORATORY [facility] nRBCs 0 <=0 /100 WBCs 09/06/2023 5:15 AM EDT LABORATORY [facility] Blood Venous blood specimen / Unknown Venipuncture / Unknown 09/06/2023 4:28 AM EDT 09/06/2023 4:50 AM EDT Raven Pedroza MD LAB BLOOD ORDERABLES Performing Organization Address City/[facility] Co de Phone Number LABORATORY [facility] [address] [place] [address] * PHOSPHORUS (09/06/2023 4:28 AM EDT) Phosphorus 2.9 2.5 - 4.8 mg/dL 09/06/2023 5:51 AM EDT LABORATORY [facility] Blood Venous blood specimen / Unknown Venipuncture / Unknown 09/06/2023 4:28 AM EDT 09/06/2023 4:50 AM EDT Baldo Thomas MD LAB BLOOD ORDERABLES LABORATORY [facility] [place] [facility] [address] [place] [address] * MAGNESIUM (09/06/2023 4:28 AM EDT) Magnesium 2.2 1.5 - 2.6 mg/dL 09/06/2023 5:51 AM EDT LABORATORY [facility] Blood Venous blood specimen / Unknown Venipuncture / Unknown 09/06/2023 4:28 AM EDT 09/06/2023 4:50 AM EDT Baldo Thomas MD LAB BLOOD ORDERABLES Performing Organization Address [facility] Co de Phone Number LABORATORY [facility] [place] [address] [place] [address] * CALCIUM, IONIZED (09/06/2023 4:28 AM EDT) Pathologist [facility] Calcium, Ionized 1.13 1.13 - 1.32 mmol/L 09/06/2023 5:21 AM EDT LABORATORY [facility] Comment:This test was develo ped and its performance characteristics dtermined by [employer]. It has not been cleared or approved by the US Food and Drug Administration Blood Venous blood specimen / Unknown Venipuncture / Unknown 09/06/2023 4:28 AM EDT 09/06/2023 4:50 AM EDT Baldo Thomas MD LAB BLOOD ORDERABLES Performing Organization Address [facility] de Phone Number [facility] [address] [place] [address] * (ABNORMAL) BASIC METABOLIC PANEL (09/06/2023 4:28 AM EDT) Pathologist [facility] BUN 16 6 - 20 mg/dL 09/06/2023 5:51 AM EDT LABORATORY GM Creatinine 0.7 0.5 - 1.0 mg/dL 09/06/2023 5:51 AM EDT LABORATORY [facility] Estimated Glomerular Filtration Rate 90 >=60 mL/min 09/06/2023 5:51 AM EDT LABORATORY [facility] Comment:eGFR is calculated b ased on the CKD-EPI 2020 equation Sodium 138 135 - 146 mmol/L 09/06/2023 5:51 AM EDT LABORATORY [facility] Potassium 4.0 3.5 - 5.1 mmol/L 09/06/2023 5:51 AM EDT LABORATORY [facility] Chloride 107 98 - 107 mmol/L 09/06/2023 5:51 AM EDT LABORATORY [facility] CO2 16(L) 22 - 32 mmol/L 09/06/2023 5:51 AM EDT LAB[facility]ATORY [facility] Anion Gap 15 7 - 15 mmol/L 09/06/2023 5:51 AM EDT LABORATORY [facility] [place] Glucose 153(H) 70 - 120 mg/dL 09/06/2023 5:51 AM EDT LABORATORY [facility] [facility] Calcium 7.8(L) 8.4 - 10.2 mg/dL 09/06/2023 5:51 AM EDT LABORATORY [facility] [place] [facility] Blood Venous blood specimen / Unknown Venipuncture / Unknown 09/06/2023 4:28 AM EDT 09/06/2023 4:50 AM EDT Baldo Thomas MD LAB BLOOD ORDERABLES LABORATORY [facility] [place] [address] [place] [address] * XR HIP 1 VIEW INCLUDING AP PELVIS (09/05/2023 11:01 PM EDT) Anatomical Region Laterality Modality Lower Extremity, Hip, Pelvis Com puted Radiography 09/06/2023 7:21 AM EDT Impressions 09/06/2023 7:18 AM EDT IMPRESSION Interval right total hip arthroplasty without acute findings. Narrative 09/06/2023 7:18 AM EDT EXAM RT XR HIP 1 VIEW INCLUDING AP PELVIS-09/05/2023 11:01 pm HISTORY postop COMPARISON 09/05/2023 TECHNIQUE One image FINDINGS Interval right total hip arthroplasty. No fracture is identified. The alignment is normal. Postoperative soft tissue gas. Right hip skin glenn. Procedure Note Pacheco Feliz MD - 09/06/2023 EXAM RT XR HIP 1 VIEW INCLUDING AP PELVIS-09/05/2023 11:01 pm HISTORY postop COMPARISON 09/05/2023 TECHNIQUE One image FINDINGS Interval right total hip arthroplasty. No fracture is identified. Thealignment is normal. Postoperative soft tissue gas. Right hip skinstaples. IMPRESSION IMPRESSION Interval right total hip arthroplasty without acute findings. Diomedes Telles MD RADIOLOGY ([facility]) * (ABNORMAL) CBC (09/05/2023 10:32 PM EDT) WBC 13.19(H) 4.00 - 10.80 K/uL 09/05/2023 11:20 PM EDT LABORATORY [facility] RBC 3.35 3.85 - 5.15 M/uL 09/05/2023 11:20 PM EDT LABORATORY [facility] HGB 10.6(L) 12.0 - 15.3 g/dL 09/05/2023 11:20 PM EDT LABORATORY [facility] HCT 30.2(L) 36.0 - 45.2 % 09/05/2023 11:20 PM EDT LABORATORY [facility] MCV 90.1 81.5 - 97.5 fL 09/05/2023 11:20 PM EDT LABORATORY [facility] MCH 31.6 27.0 - 34.0 pg 09/05/2023 11:20 PM EDT LABORATORY [facility] MCHC 35.1 32.0 - 36.0 g/dL 09/05/2023 11:20 PM EDT LABORATORY [facility] RDW 13.7 11.5 - 15.5 % 09/05/2023 11:20 PM EDT LABORATORY [facility] PLT 77(L) 140 - 400 K/uL 09/05/2023 11:20 PM EDT LABORATORY [facility] MPV 10.7 6.6 - 11.1 fL 09/05/2023 11:20 PM EDT LABORATORY [facility] nRBCs 0 <=0 /100 WBCs 09/05/2023 11:20 PM EDT LABORATORY [facility] [place] [facility] Blood Venous blood specimen / Unknown Venipuncture / Unknown 09/05/2023 10:32 PM EDT 09/05/2023 10:38 PM EDT Raven Pedroza MD LAB BLOOD ORDERABLES LABORATORY [facility] [address] [place] [address] * XR INTRA-OP C-ARM CASE (09/05/2023 10:04 PM EDT) Narrative Scheduling, Silent - 09/05/2023 10:06 PM EDT This procedure will not be read by a Radiologist. Please see operative note. Johnnie Oabndo III, MD RADIOLOGY ( [facility]) * TRANSFUSE PACKED RED BLOOD CELLS (09/05/2023 8:55 PM EDT) Manda Fulton MD BLD BANK TRANFUSE OR DERABLES * PREPARE PACKED RED BLOOD CELLS (09/05/2023 8:55 PM EDT) Unit Product Code [id number] 09/06/2023 6:12 AM EDT LABORATORY [facility] BLOOD BANK Unit Number [id number] 09/06/2023 6:12 AM EDT LABORATORY [facility] BLOOD BANK Unit ABO O 09/06/2023 6:12 AM EDT LAB[facility]ATORY [facility] BLOOD BANK Unit Rh POS 09/06/2023 6:12 AM EDT LAB[facility]ATORY [facility] BLOOD BANK Unit Crossmatch Compatible 09/05/2023 9:09 PM EDT LABORATORY [facility] BLOOD BANK Unit Status RE 09/06/2023 6:12 AM EDT LABORATORY [facility] BLOOD BANK Unit Blood Type OPOS 09/06/2023 6:12 AM EDT LAB[facility]ATORY [facility] BLOOD BANK Unit Expiration [id number] 09/06/2023 6:12 AM EDT LAB[facility]ATORY [facility] BLOOD BANK Unit Barcode 5100 09/06/2023 6:12 AM EDT LAB[facility]ATORY [facility] BLOOD BANK Unit Product Code [id number] 09/06/2023 6:12 AM EDT LAB[facility]ATORY [facility] BLOOD BANK Unit Number [id number] 09/06/2023 6:12 AM EDT LAB[facility]ATORY [facility] BLOOD BANK Unit ABO O 09/06/2023 6:12 AM EDT LAB[facility]ATORY [facility] BLOOD BANK Unit Rh POS 09/06/2023 6:12 AM EDT LAB[facility]ATORY [facility] BLOOD BANK Unit Crossmatch Compatible 09/05/2023 9:09 PM EDT LAB[facility]ATORY [facility] BLOOD BANK Unit Status RE 09/06/2023 6:12 AM EDT LAB[facility]ATORY [facility] BLOOD BANK Unit Blood Type OPOS 09/06/2023 6:12 AM EDT LABORATORY [facility] BLOOD BANK Unit Expiration [id number] 09/06/2023 6:12 AM EDT LABORATORY [facility] BLOOD BANK Unit Barcode 5100 09/06/2023 6:12 AM EDT LAB[facility]ATORY [facility] BLOOD BANK 09/05/2023 8:55 PM EDT Manda Fulton MD BLD BANK PRODUCT ORD ERABLES LABORATORY [facility] BLOOD BANK [address] [place] [address] * TRANSFUSE PACKED RED BLOOD CELLS (09/05/2023 8:47 PM EDT) Manda Fulton MD BLD BANK TRANFUSE OR DERABLES * (ABNORMAL) BLOOD GAS WITH CHEMISTRY, POINT OF CARE (09/05/2023 8:43 PM EDT) Draw Site Venous 09/05/2023 10:32 PM EDT [facility] pH i-STAT 7.190(LL) 7.350 - 7.450 09/05/2023 10:32 PM EDT [facility] pCO2 i-STAT 39.9 35.0 - 45.0 mm Hg 09/05/2023 10:32 PM EDT [facility] pO2 i-STAT 55(L) 75 - 100 mm Hg 09/05/2023 10:32 PM EDT [facility] Base Excess i-STAT -12(L) -2 - 2 mmol/L 09/05/2023 10:32 PM EDT [facility] Bicarbonate i-STAT 15.2(L) 23.0 - 31.0 mmol/L 09/05/2023 10:32 PM EDT [facility] O2 Saturation i-STAT 80.0(L) 94.0 - 98.0 % 09/05/2023 10:32 PM EDT [facility] Glucose i-STAT 122(H) 70 - 120 mg/dL 09/05/2023 10:32 PM EDT [facility] Potassium i-STAT 4.0 3.5 - 5.1 mmol/L 09/05/2023 10:32 PM EDT [facility] Sodium i-STAT 139 135 - 146 mmol/L 09/05/2023 10:32 PM EDT [facility] Calcium Ionized i-STAT 1.22 1.13 - 1.32 mmol/L 09/05/2023 10:32 PM EDT [facility] Hemoglobin i-STAT 8.2(L) 12.0 - 15.3 g/dL 09/05/2023 10:32 PM EDT [facility] Hematocrit i-STAT 24(L) 36 - 45 % 09/05/2023 10:32 PM EDT [facility] Venous 09/05/2023 8:43 PM EDT 09/05/2023 10:32 PM EDT Houston Wiseman MD LAB POINT OF C ARE TEST DOCKED DEVICE UNSOLICITED RESULTS [facility] [address] [place] [address] * (ABNORMAL) BLOOD GAS WITH CHEMISTRY, POINT OF CARE (09/05/2023 8:10 PM EDT) Draw Site Venous 09/05/2023 10:32 PM EDT [facility] pH i-STAT 7.174(LL) 7.350 - 7.450 09/05/2023 10:32 PM EDT [facility] pCO2 i-STAT 41.2 35.0 - 45.0 mm Hg 09/05/2023 10:32 PM EDT [facility] pO2 i-STAT 72(L) 75 - 100 mm Hg 09/05/2023 10:32 PM EDT [facility] Base Excess i-STAT -13(L) -2 - 2 mmol/L 09/05/2023 10:32 PM EDT [facility] Bicarbonate i-STAT 15.1(L) 23.0 - 31.0 mmol/L 09/05/2023 10:32 PM EDT [facility] O2 Saturation i-STAT 90.0(L) 94.0 - 98.0 % 09/05/2023 10:32 PM EDT [facility] Glucose i-STAT 121(H) 70 - 120 mg/dL 09/05/2023 10:32 PM EDT [facility] Potassium i-STAT 3.8 3.5 - 5.1 mmol/L 09/05/2023 10:32 PM EDT [facility] Sodium i-STAT 138 135 - 146 mmol/L 09/05/2023 10:32 PM EDT [facility] Calcium Ionized i-STAT 1.09(L) 1.13 - 1.32 mmol/L 09/05/2023 10:32 PM EDT [facility] Hemoglobin i-STAT 9.5(L) 12.0 - 15.3 g/dL 09/05/2023 10:32 PM EDT [facility] Hematocrit i-STAT 28(L) 36 - 45 % 09/05/2023 10:32 PM EDT [facility] Venous 09/05/2023 8:10 PM EDT 09/05/2023 10:32 PM EDT Houston Wiseman MD LAB POINT OF C ARE TEST DOCKED DEVICE UNSOLICITED RESULTS [facility] [address] [place] [address] * GLUCOSE METER, POINT OF CARE (09/05/2023 5:18 PM EDT) Glucose Meter 77 70 - 120 mg/dL 09/05/2023 5:22 PM EDT [facility] Blood Whole blood specimen / Unknown 09/05/2023 5:18 PM EDT 09/05/2023 5:22 PM EDT Houston Wiseman MD LAB POINT OF C ARE TEST DOCKED DEVICE UNSOLICITED RESULTS [facility] [address] [place] [address] * PREPARE PACKED RED BLOOD CELLS (09/05/2023 4:55 PM EDT) Unit Product Code [id number] 09/07/2023 2:10 AM EDT LABORATORY [facility] [place] [facility] BLOOD BANK Unit Number [id number] 09/07/2023 2:10 AM EDT LABORATORY [facility] BLOOD BANK Unit ABO O 09/07/2023 2:10 AM EDT LABORATORY [facility] BLOOD BANK Unit Rh POS 09/07/2023 2:10 AM EDT LABORATORY [facility] BLOOD BANK Unit Crossmatch Compatible 09/05/2023 5:09 PM EDT LABORATORY [facility] BLOOD BANK Unit Status PT 09/07/2023 2:10 AM EDT LAB[facility]ATORY [facility] BLOOD BANK Unit Blood Type OPOS 09/07/2023 2:10 AM EDT LAB[facility]ATORY [facility] BLOOD BANK Unit Expiration [id number] 09/07/2023 2:10 AM EDT LABORATORY [facility] BLOOD BANK Unit Barcode 5100 09/07/2023 2:10 AM EDT LAB[facility]ATORY [facility] BLOOD BANK Unit Product Code [id number] 09/07/2023 2:10 AM EDT LAB[facility]ATORY [facility] BLOOD BANK Unit Number [id number] 09/07/2023 2:10 AM EDT LABORATORY [facility] BLOOD BANK Unit ABO O 09/07/2023 2:10 AM EDT LAB[facility]ATORY [facility] BLOOD BANK Unit Rh POS 09/07/2023 2:10 AM EDT LAB[facility]ATORY [facility] BLOOD BANK Unit Crossmatch Compatible 09/05/2023 5:09 PM EDT LABORATORY [facility] BLOOD BANK Unit Status PT 09/07/2023 2:10 AM EDT LABORATORY [facility] BLOOD BANK Unit Blood Type OPOS 09/07/2023 2:10 AM EDT LABORATORY C BLOOD BANK Unit Expiration [id number] 09/07/2023 2:10 AM EDT LABORATORY [facility] [place] BLOOD BANK Unit Barcode 5100 09/07/2023 2:10 AM EDT LABORATORY [facility] [facility] BLOOD BANK 09/05/2023 4:55 PM EDT Moises Dias CRNA BLD BANK PRODU CT ORDERABLES LABORATORY [facility] BLOOD BANK [address] [place] [address] * (ABNORMAL) CBC (09/05/2023 1:58 PM EDT) WBC 10.00 4.00 - 10.80 K/uL 09/05/2023 2:20 PM EDT LABORATORY [facility] RBC 3.71 3.85 - 5.15 M/uL 09/05/2023 2:20 PM EDT LABORATORY [facility] HGB 11.5(L) 12.0 - 15.3 g/dL 09/05/2023 2:20 PM EDT LABORATORY [facility] HCT 34.9(L) 36.0 - 45.2 % 09/05/2023 2:20 PM EDT LABORATORY [facility] MCV 94.1 81.5 - 97.5 fL 09/05/2023 2:20 PM EDT LABORATORY [facility] MCH 31.0 27.0 - 34.0 pg 09/05/2023 2:20 PM EDT LABORATORY GM MCHC 33.0 32.0 - 36.0 g/dL 09/05/2023 2:20 PM EDT LABORATORY [facility] RDW 13.1 11.5 - 15.5 % 09/05/2023 2:20 PM EDT LABORATORY GM PLT 111(L) 140 - 400 K/uL 09/05/2023 2:20 PM EDT LABORATORY [facility] MPV 10.6 6.6 - 11.1 fL 09/05/2023 2:20 PM EDT LABORATORY GM nRBCs 0 <=0 /100 WBCs 09/05/2023 2:20 PM EDT LABORATORY [facility] Blood Venous blood specimen / Unknown Venipuncture / Unknown 09/05/2023 1:58 PM EDT 09/05/2023 2:12 PM EDT Raven Pedroza MD LAB BLOOD ORDERABLES LABORATORY [facility] [address] [place] [address] * (ABNORMAL) OPIOIDS, URINE CONFIRMATION (09/05/2023 4:50 AM EDT) Pathologist [facility] Methodology LC-MS/MS 09/07/2023 10:22 AM EDT LABORATORY [facility] Codeine Confirmation, U Negative Negative 09/07/2023 10:22 AM EDT LABORATORY [facility] Morphine Confirmation, U 462(H) Negative ng/mL 09/07/2023 10:22 AM EDT LABORATORY [facility] Hydrocodone Confirmation, U Negative Negative 09/07/2023 10:22 AM EDT LABORATORY [facility] Hydromorphone Confirmation, U Negative Negative 09/07/2023 10:22 AM EDT LABORATORY [facility] Dihydrocodeine Confirmation, U Negative Negative 09/07/2023 10:22 AM EDT LABORATORY [facility] Oxycodone Confirmation, U Negative Negative 09/07/2023 10:22 AM EDT LABORATORY [facility] Oxymorphone Confirmation, U Negative Negative 09/07/2023 10:22 AM EDT LABORATORY [facility] Urine Urine specimen / Unknown Non-blood Collection / Unknown 09/05/2023 4:50 AM EDT 09/05/2023 4:59 AM EDT Narrative LABORATORY [facility] - 09/07/2023 10:22 AM EDT Cutoff Concentrations: Drug Level Codeine 40 ng/mL Morphine 40 ng/mL Hydrocodone 40 ng/mL Hydromorphone 40 ng/mL Dihydrocodeine 40 ng/mL Oxycodone 50 ng/mL Oxymorphone 50 ng/mL This test was developed and its performance characteristics determined by [employer]. It has not been cleared or approved by the [place] Food and Drug Administration. Rachna Ro MD LAB URINE ORDERABLES LABORATORY [facility] [address] [place] [address] * (ABNORMAL) TOXICOLOGY, URINESCREEN W/ CONFIRMATION (09/05/2023 4:50 AM EDT) [facility] Amphetamines Screen, U Negative Negative 09/05/2023 5:29 AM EDT LABORATORY [facility] Benzodiazepines Screen, U Negative Negative 09/05/2023 5:29 AM EDT LABORATORY [facility] Cannabinoids Screen, U Negative Negative 09/05/2023 5:29 AM EDT LABORATORY [facility] Cocaine Metabolite Screen, U Negative Negative 09/05/2023 5:29 AM EDT LABORATORY [facility] Fentanyl Screen, U Negative Negative 2023 5:29 AM EDT LABORATORY [facility] Hydrocodone Screen, U Negative Negative 09/05/2023 5:29 AM EDT LABORATORY [facility] Methadone Metabolite Screen, U Negative Negative 09/05/2023 5:29 AM EDT LABORATORY [facility] Morphine/Codeine Screen, U Positive(A) Negative 09/05/2023 5:29 AM EDT LABORATORY [facility] Oxycodone Screen, U Negative Negative 09/05/2023 5:29 AM EDT LABORATORY [facility] Urine Urine specimen / Unknown Non-blood Collection / Unknown 09/05/2023 4:50 AM EDT 09/05/2023 4:59 AM EDT Narrative LABORATORY [facility] [place] - 09/05/2023 5:29 AM EDT Cutoff Concentrations: Drug Level Amphetamines 500 ng/mL Benzodiazepines 100 ng/mL Cannabinoids 50 ng/mL Cocaine Metabolite 150 ng/mL Fentanyl 1 ng/mL Hydrocodone / Hydromorphone 300 ng/mL Methadone Metabolite 100 ng/mL Morphine / Codeine 300 ng/mL Oxycodone / Oxymorphone 100 ng/mL Screening results are presumptive and can only be used for medical purposes. Positive screening results are reflexed to confirmatory testing. Rachna Ro MD LAB URINE ORDERABLES Performing Organization Address [facility]/ZIP Co de Phone Number LABORATORY [address] [address] * CULTURE, URINE, QUANTITATIVE (09/05/2023 4:50 AM EDT) Culture Growth No significant growth 09/06/2023 8:36 AM EDT LABORATORY [facility] Urine Urine specimen / Unknown Non-blood Collection / Unknown 09/05/2023 4:50 AM EDT 09/05/2023 4:58 AM EDT Rachna Ro MD LAB MICRO - GENERAL ORDERABLES Performing Organization Address [facility] Co de Phone Number LABORATORY [address] [address] * (ABNORMAL) URINALYSIS, REFLEX TO MICROSCOPIC (09/05/2023 4:50 AM EDT) Color, Urine Colorless Colorless, Light Yellow, Yellow, Dark Yellow 09/05/2023 5:13 AM EDT LABORATORY C Clarity, Urine Clear Clear 09/05/2023 5:13 AM EDT LABORATORY C Glucose, Urine Negative Negative mg/dL 09/05/2023 5:13 AM EDT LABORATORY C Bilirubin, Urine Negative Negative 09/05/2023 5:13 AM EDT LABORATORY C Ketone, Urine 80(A) Negative mg/dL 09/05/2023 5:13 AM EDT LABORATORY [facility] Specific [place], Urine 1.029 1.003 - 1.030 09/05/2023 5:13 AM EDT LABORATORY [facility] Blood, Urine Negative Negative 09/05/2023 5:13 AM EDT LABORATORY C pH, Urine 6.0 5.0 - 7.5 Units 09/05/2023 5:13 AM EDT LABORATORY C Protein, Urine Negative Negative mg/dL 09/05/2023 5:13 AM EDT LABORATORY [facility] Urobilinogen, Urine Normal Normal mg/dL 09/05/2023 5:13 AM EDT LABORATORY C Nitrite, Urine Negative Negative 09/05/2023 5:13 AM EDT LABORATORY C Esterase, Urine Negative Negative 5:13 AM EDT LABORATORY C Comment, Urine 09/05/2023 5:13 AM EDT LABORATORY [facility] Comment:Screen negative - Mi croscopic not performed. Urine Urine specimen / Unknown Non-blood Collection / Unknown 09/05/2023 4:50 AM EDT 09/05/2023 4:59 AM EDT Rachna Ro MD LAB URINE ORDERABLES LABORATORY [facility] [address] [place] [address] * (ABNORMAL) CBC (09/05/2023 4:27 AM EDT) WBC 8.73 4.00 - 10.80 K/uL 09/05/2023 4:51 AM EDT LABORATORY [facility] RBC 3.86 3.85 - 5.15 M/uL 09/05/2023 4:51 AM EDT LABORATORY [facility] HGB 12.0 12.0 - 15.3 g/dL 09/05/2023 4:51 AM EDT LABORATORY [facility] HCT 35.9(L) 36.0 - 45.2 % 09/05/2023 4:51 AM EDT LABORATORY [facility] MCV 93.0 81.5 - 97.5 fL 09/05/2023 4:51 AM EDT LABORATORY [facility] MCH 31.1 27.0 - 34.0 pg 09/05/2023 4:51 AM EDT LABORATORY [facility] MCHC 33.4 32.0 - 36.0 g/dL 09/05/2023 4:51 AM EDT LABORATORY [facility] RDW 12.9 11.5 - 15.5 % 09/05/2023 4:51 AM EDT LABORATORY [facility] PLT 120(L) 140 - 400 K/uL 09/05/2023 4:51 AM EDT LABORATORY [facility] MPV 10.6 6.6 - 11.1 fL 09/05/2023 4:51 AM EDT LABORATORY [facility] nRBCs 0 <=0 /100 WBCs 09/05/2023 4:51 AM EDT LABORATORY [facility] Blood Venous blood specimen / Unknown Venipuncture / Unknown 09/05/2023 4:27 AM EDT 09/05/2023 4:32 AM EDT Raven Pedroza MD LAB BLOOD ORDERABLES LABORATORY [facility] [address] [place] [address] * XR FEMUR MINIMUM 2 VIEWS (09/05/2023 4:19 AM EDT) Anatomical Region Laterality Modality Femur, Lower Extremity, Hip Digi kaelyn Radiography 09/05/2023 9:36 AM EDT Narrative 09/05/2023 9:33 AM EDT EXAM: RT XR PELVIS COMPLETE; XR FEMUR MINIMUM 2 VIEWS HISTORY: tab fracture; right acetabular fracture COMPARISON:- FINDINGS / IMPRESSION: Displaced right acetabular fracture. Procedure Note Joe Fulton MD - 09/05/2023 EXAM: RT XR PELVIS COMPLETE; XR FEMUR MINIMUM 2 VIEWS HISTORY: tab fracture; right acetabular fracture COMPARISON:- FINDINGS / IMPRESSION: Displaced right acetabular fracture. Da Walton MD RADIOLOGY (RAD GEN ERAL) * XR PELVIS COMPLETE (09/05/2023 4:19 AM EDT) Anatomical Region Laterality Modality Pelvis, Lower Extremity Digital Radiography 09/05/2023 9:36 AM EDT Narrative 09/05/2023 9:33 AM EDT EXAM: RT XR PELVIS COMPLETE; XR FEMUR MINIMUM 2 VIEWS HISTORY: tab fracture; right acetabular fracture COMPARISON:- FINDINGS / IMPRESSION: Displaced right acetabular fracture. Procedure Note Joe Fulton MD - 09/05/2023 EXAM: RT XR PELVIS COMPLETE; XR FEMUR MINIMUM 2 VIEWS HISTORY: tab fracture; right acetabular fracture COMPARISON:- FINDINGS / IMPRESSION: Displaced right acetabular fracture. Nadia Polanco MD RADIOLOGY (RAD GENER AL) * CT 3D RECONSTRUCTION MUSCULOSKELETAL (09/05/2023 4:07 AM EDT) Anatomical Region Laterality Modality 3drecon, Musculoskeletal, An kle, Elbow, Femur, Foot, Hip, Knee, Scapula, Shoulder, Wrist, Hand, HUMERUS, Forearm, TibFib Computed Tomography 09/05/2023 9:04 AM EDT Impressions 09/05/2023 9:19 AM EDT IMPRESSION 1. Redemonstrated comminuted and displaced fracture of the acetabulum, involving the posterior acetabulum and superolateral acetabulum. 2. Redemonstrated comminuted and mildly impacted medial femoral head fracture. 3. Asymmetric enlargement of the right gluteal muscles, which may represent strain or hematoma on this noncontrast study. I have personally reviewed this examination and agree with the resident/fellow physician's interpretation. Narrative 09/05/2023 9:[address] 3D RECONSTRUCTION MUSCULOSKELETAL; CT PELVIS WO CONTRAST-09/05/2023 4:07 am HISTORY acetab fx; acetabulum fx COMPARISON Pelvis radiograph 09/05/[address] images of the pelvis were obtained without contrast. Coronal and sagittal reconstructions were provided. 3D reconstructions were generated on an independent workstation. FINDINGS Bones: Comminuted fracture of the acetabulum involving the posterior acetabulum and superolateral acetabulum. The largest fracture fragment has 1.8 cm lateral and 1.2 cm posterior displacement. Mildly impacted comminuted medial femoral head fracture. Degenerative changes of the visualized lumbar spine. Grade 1 L4-L5 anterolisthesis. 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 Soft tissues: Tiny fat containing umbilical hernia. Asymmetric enlargement of the right gluteal muscles, which may represent strain or hematoma on this noncontrast study. Mild atherosclerosis. Excreted contrast within the bladder. 3D reconstructions confirm the above findings. Procedure Note Da Croft MD - 09/05/[address] 3D RECONSTRUCTION MUSCULOSKELETAL; CT PELVIS WO CONTRAST-09/05/2023 4:07am HISTORY acetab fx; acetabulum fx COMPARISON Pelvis radiograph 09/05/[address] images of the pelvis were obtained without contrast. Coronal andsagittal reconstructions were provided. 3D reconstructions were generatedon an independent workstation. FINDINGS Bones: Comminuted fracture of the acetabulum involving the posterioracetabulum and superolateral acetabulum. The largest fracture fragmenthas 1.8 cm lateral and 1.2 cm posterior displacement. Mildly impactedcomminuted medial femoral head fracture. Degenerative changes of thevisualized lumbar spine. Grade 1 L4-L5 anterolisthesis. Mildsuperimposed osteoarthritic changes of the hips. Soft tissues: Tiny fat containing umbilical hernia. Asymmetricenlargement of the right gluteal muscles, which may represent strain orhematoma on this noncontrast study. Mild atherosclerosis. Excretedcontrast within the bladder. 3D reconstructions confirm the above findings. IMPRESSION IMPRESSION 1. Redemonstrated comminuted and displaced fracture of the acetabulum,involving the posterior acetabulum and superolateral acetabulum. 2. Redemonstrated comminuted and mildly impacted medial femoral headfracture. 3. Asymmetric enlargement of the right gluteal muscles, which mayrepresent strain or hematoma on this noncontrast study. I have personally reviewed this examination and agree with the resident/fellow physician's interpretation. Nadia Polanco MD RAD CT * CT PELVIS WO CONTRAST (09/05/2023 4:07 AM EDT) Anatomical Region Laterality Modality Pelvis, Body Computed Tomogra phy 09/05/2023 9:04 AM EDT Impressions 09/05/2023 9:19 AM EDT IMPRESSION 1. Redemonstrated comminuted and displaced fracture of the acetabulum, involving the posterior acetabulum and superolateral acetabulum. 2. Redemonstrated comminuted and mildly impacted medial femoral head fracture. 3. Asymmetric enlargement of the right gluteal muscles, which may represent strain or hematoma on this noncontrast study. I have personally reviewed this examination and agree with the resident/fellow physician's interpretation. Narrative 09/05/2023 9:[address] 3D RECONSTRUCTION MUSCULOSKELETAL; CT PELVIS WO CONTRAST-09/05/2023 4:07 am HISTORY acetab fx; acetabulum fx COMPARISON Pelvis radiograph 09/05/[address] images of the pelvis were obtained without contrast. Coronal and sagittal reconstructions were provided. 3D reconstructions were generated on an independent workstation. FINDINGS Bones: Comminuted fracture of the acetabulum involving the posterior acetabulum and superolateral acetabulum. The largest fracture fragment has 1.8 cm lateral and 1.2 cm posterior displacement. Mildly impacted comminuted medial femoral head fracture. Degenerative changes of the visualized lumbar spine. Grade 1 L4-L5 anterolisthesis. 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 Soft tissues: Tiny fat containing umbilical hernia. Asymmetric enlargement of the right gluteal muscles, which may represent strain or hematoma on this noncontrast study. Mild atherosclerosis. Excreted contrast within the bladder. 3D reconstructions confirm the above findings. Procedure Note Da Croft MD - 09/05/[address] 3D RECONSTRUCTION MUSCULOSKELETAL; CT PELVIS WO CONTRAST-09/05/2023 4:07am HISTORY acetab fx; acetabulum fx COMPARISON Pelvis radiograph 09/05/[address] images of the pelvis were obtained without contrast. Coronal andsagittal reconstructions were provided. 3D reconstructions were generatedon an independent workstation. FINDINGS Bones: Comminuted fracture of the acetabulum involving the posterioracetabulum and superolateral acetabulum. The largest fracture fragmenthas 1.8 cm lateral and 1.2 cm posterior displacement. Mildly impactedcomminuted medial femoral head fracture. Degenerative changes of thevisualized lumbar spine. Grade 1 L4-L5 anterolisthesis. Mildsuperimposed osteoarthritic changes of the hips. Soft tissues: Tiny fat containing umbilical hernia. Asymmetricenlargement of the right gluteal muscles, which may represent strain orhematoma on this noncontrast study. Mild atherosclerosis. Excretedcontrast within the bladder. 3D reconstructions confirm the above findings. IMPRESSION IMPRESSION 1. Redemonstrated comminuted and displaced fracture of the acetabulum,involving the posterior acetabulum and superolateral acetabulum. 2. Redemonstrated comminuted and mildly impacted medial femoral headfracture. 3. Asymmetric enlargement of the right gluteal muscles, which mayrepresent strain or hematoma on this noncontrast study. I have personally reviewed this examination and agree with the resident/fellow physician's interpretation. Nadia Polanco MD RAD CT * ABO/RH (09/05/2023 2:55 AM EDT) ABO O 09/05/2023 3:25 AM EDT LAB[facility]ORY [facility] [place] BLOOD BANK Rh Positive 09/05/2023 3:25 AM EDT LAB[facility]ATORY [facility] [place] BLOOD B[facility] Blood Venous blood specimen / Unknown Venipuncture / Unknown 09/05/2023 2:55 AM EDT 09/05/2023 3:00 AM EDT Rachna Ro MD LAB BLOOD BANK TEST ORDERABLES LAB[facility]ATORY [facility] [place] BLOOD BANK [address] [place] [address] * (ABNORMAL) DIFFERENTIAL, AUTOMATED (09/05/2023 2:55 AM EDT) WBC 9.73 4.00 - 10.80 K/uL 09/05/2023 3:16 AM EDT [facility] Neutrophils % 82.8(H) 40.0 - 75.0 % 09/05/2023 3:16 AM EDT [facility] Lymphocytes % 8.0(L) 18.0 - 42.0 % 09/05/2023 3:16 AM EDT [facility] Monocytes % 7.5 1.0 - 11.0 % 09/05/2023 3:16 AM EDT [facility] Eosinophils % 0.2 0.0 - 6.0 % 09/05/2023 3:16 AM EDT [facility] Basophils % 0.4 0.0 - 2.0 % 09/05/2023 3:16 AM EDT [facility] Immature Granulocytes % 1.1 0.0 - 2.0 % 09/05/2023 3:16 AM EDT [facility] Absolute Neutrophils 8.05(H) 1.80 - 7.70 K/uL 09/05/2023 3:16 AM EDT [facility] Absolute Lymphocytes 0.78(L) 1.00 - 4.80 K/ul 09/05/2023 3:16 AM EDT [facility] Absolute Monocytes 0.73 0.00 - 1.10 K/uL 09/05/2023 3:16 AM EDT [facility] Absolute Eosinophils 0.02 0.00 - 0.70 K/uL 09/05/2023 3:16 AM EDT [facility] Absolute Basophils 0.04 0.00 - 0.20 K/uL 09/05/2023 3:16 AM EDT [facility] Absolute Immature Granulocytes 0.11 0.00 - 0.20 K/uL 09/05/2023 3:16 AM EDT [facility] Blood Venous blood specimen / Unknown Venipuncture / Unknown 09/05/2023 2:55 AM EDT 09/05/2023 3:00 AM EDT Rachna Ro MD LAB BLOOD ORDERABLES [facility] [address] [place] [address] * CBC (09/05/2023 2:55 AM EDT) WBC 9.73 4.00 - 10.80 K/uL 09/05/2023 3:16 AM EDT [facility] RBC 4.06 3.85 - 5.15 M/uL 09/05/2023 3:16 AM EDT [facility] HGB 12.5 12.0 - 15.3 g/dL 09/05/2023 3:16 AM EDT [facility] HCT 37.6 36.0 - 45.2 % 09/05/2023 3:16 AM EDT [facility] MCV 92.6 81.5 - 97.5 fL 09/05/2023 3:16 AM EDT [facility] MCH 30.8 27.0 - 34.0 pg 09/05/2023 3:16 AM EDT [facility] MCHC 33.2 32.0 - 36.0 g/dL 09/05/2023 3:16 AM EDT [facility] RDW 12.9 11.5 - 15.5 % 09/05/2023 3:16 AM EDT LAB[facility]ORY [facility] [place] PLT 147 140 - 400 K/uL 09/05/2023 3:16 AM EDT LAB[facility]ORY [facility] [place] MPV 10.9 6.6 - 11.1 fL 09/05/2023 3:16 AM EDT LAB[facility]ATORY [facility] [place] nRBCs 0 <=0 /100 WBCs 09/05/2023 3:16 AM EDT LAB[facility]ATORY [facility] [place] Blood Venous blood specimen / Unknown Venipuncture / Unknown 09/05/2023 2:55 AM EDT 09/05/2023 3:00 AM EDT Rachna Ro MD LAB BLOOD ORDERABLES Performing Organization Address City/[facility] Co de Phone Number LABORATORY [facility] [place] [facility] [address] [place] [address] * TYPE AND SCREEN (09/05/2023 2:55 AM EDT) ABO O 09/05/2023 3:57 AM EDT LAB[facility]ATORY [facility] [place] BLOOD BANK Rh Positive 09/05/2023 3:57 AM EDT LAB[facility]ATORY [facility] [place] BLOOD B[facility] Red Blood Cell Antibody Screen Negative 09/05/2023 3:57 AM EDT LABORATORY [facility] [place] BLOOD B[facility] Specimen Expiration Date 09/08/2023 23:59 09/05/2023 3:57 AM EDT LAB[facility]ATORY [facility] [place] BLOOD B[facility] Blood Venous blood specimen / Unknown Venipuncture / Unknown 09/05/2023 2:55 AM EDT 09/05/2023 3:00 AM EDT Rachna Ro MD LAB BLOOD BANK TEST ORDERABLES Performing Organization Address City/[facility] Co de Phone Number LABORATORY [facility] [place] BLOOD BANK [address] [place] [address] * LACTATE (09/05/2023 2:55 AM EDT) Lactate 0.8 0.4 - 2.0 mmol/L 09/05/2023 3:20 AM EDT LABORATORY C Blood Venous blood specimen / Unknown Venipuncture / Unknown 09/05/2023 2:55 AM EDT 09/05/2023 3:00 AM EDT Rachna Ro MD LAB BLOOD ORDERABLES Performing Organization Address City/[facility]/ZIP Co de Phone Number LABORATORY [facility] [place] [address] [place] [address] * ETHANOL, MEDICAL (09/05/2023 2:55 AM EDT) ETHANOL, MEDICAL Negative Negative 09/05/2023 3:23 AM EDT LAB[facility]ATORY [facility] [place] Blood Venous blood specimen / Unknown Venipuncture / Unknown 09/05/2023 2:55 AM EDT 09/05/2023 3:00 AM EDT Rachna Ro MD LAB BLOOD ORDERABLES Performing Organization Address [facility] Phone Number [facility] [place] [facility] [address] [place] [address] * (ABNORMAL) BASIC METABOLIC PANEL (09/05/2023 2:55 AM EDT) BUN 10 6 - 20 mg/dL 09/05/2023 3:23 AM EDT LAB[facility]ORY [facility] [place] Creatinine 0.7 0.5 - 1.0 mg/dL 09/05/2023 3:23 AM EDT LAB[facility]ATORY [facility] [place] Estimated Glomerular Filtration Rate 90 >=60 mL/min 09/05/2023 3:23 AM EDT LAB[facility]ATORY [facility] [place] Comment:eGFR is calculated b ased on the CKD-EPI 2020 equation Sodium 141 135 - 146 mmol/L 09/05/2023 3:23 AM EDT LAB[facility]ATORY [facility] [place] Potassium 4.0 3.5 - 5.1 mmol/L 09/05/2023 3:23 AM EDT LABORATORY C Chloride 109(H) 98 - 107 mmol/L 09/05/2023 3:23 AM EDT LABORATORY C CO2 18(L) 22 - 32 mmol/L 09/05/2023 3:23 AM EDT LAB[facility]ATORY [facility] [place] Anion Gap 14 7 - 15 mmol/L 09/05/2023 3:23 AM EDT LAB[facility]ATORY [facility] [place] Glucose 96 70 - 120 mg/dL 09/05/2023 3:23 AM EDT LAB[facility]ATORY [facility] [place] Calcium 8.5 8.4 - 10.2 mg/dL 09/05/2023 3:23 AM EDT LAB[facility]ATORY [facility] [place] Blood Venous blood specimen / Unknown Venipuncture / Unknown 09/05/2023 2:55 AM EDT 09/05/2023 3:00 AM EDT Rachna Ro MD LAB BLOOD ORDERABLES Performing Organization Address [facility] Co de Phone Number LABORATORY [facility] [place] [facility] [address] [place] [address] * (ABNORMAL) AST (09/05/2023 2:55 AM EDT) AST 37(H) 10 - 35 U/L 09/05/2023 3:23 AM EDT LAB[facility]ATORY [facility] [place] Comment:Result may be falsel y elevated due to hemolysis. Blood Venous blood specimen / Unknown Venipuncture / Unknown 09/05/2023 2:55 AM EDT 09/05/2023 3:00 AM EDT Rachna Ro MD LAB BLOOD ORDERABLES Performing Organization Address [facility] Phone Number LABORATORY [facility] [facility] [address] [place] [address] * APTT (09/05/2023 2:55 AM EDT) aPTT 27 21 - 38 seconds 09/05/2023 3:22 AM EDT LAB[facility]ATORY [facility] [place] Blood Venous blood specimen / Unknown Venipuncture / Unknown 09/05/2023 2:55 AM EDT 09/05/2023 3:00 AM EDT Narrative LABORATORY [facility] [place] - 09/05/2023 3:22 AM EDT Anticoagulation may affect testing. Refer to [employer] [facility] for a list of effects. Rachna Ro MD LAB BLOOD ORDERABLES Performing Organization Address [facility] Co de Phone Number LABORATORY [facility] [place] [address] [place] [address] * PT INR (09/05/2023 2:55 AM EDT) Prothrombin Time 13.4 11.6 - 15.2 seconds 09/05/2023 3:21 AM EDT LAB[facility]ATORY [facility] [place] INR 1.0 0.8 - 1.2 09/05/2023 3:21 AM EDT LAB[facility]ATORY [facility] [place] Blood Venous blood specimen / Unknown Venipuncture / Unknown 09/05/2023 2:55 AM EDT 09/05/2023 3:00 AM EDT Narrative LAB[facility]ATORY [facility] [place] - 09/05/2023 3:21 AM EDT Warfarin Therapy INR: 2.0-3.0 conventional anticoagulation INR: 2.5-3.5 high intensity anticoagulation Rachna Ro MD LAB BLOOD ORDERABLES Performing Organization Address City/State/[facility] Co de Phone Number LABORATORY [facility] [address] [place] [address] * XR PELVIS 1 VIEW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 Provider: Neisha Shetty RN) traMADol (Ultram) tab 50 mg 50 mg, Oral, Q6H PRN Pain, Severe, Starting on 09/09/23 at 0914, Until 09/10/23 at 1458 1656 (Given - Provider: Alyson Issa RN) Linked Groups Order Group 1: ondansetron ODT (Zofran) tab 4 mgJump to med 4 mg, On Tongue, Q6H PRN Nausea, Vomiting, Starting on 09/05/23 at 0301, Until 09/10/23 at 1458 Or ondansetron (Zofran) inj 4 mgJump to med 4 mg, IV Push, Q6H PRN Other, May use for nausea or vomiting if patient unable to take oral ondansetron, Starting on 09/05/23 at 0301, Until 09/10/23 at 1458 documented in this encounter Advance Directives * Full Code (Latest Code Status on File) Date Activated Date Inactivated Comments 09/05/2023 3:03 AM 09/10/2023 3:03 PM This order re flects the patients wishes and were consensually agreed upon. Does not want trach / peg. Question Answer Comments Discussion of Advance Directives occurred with: Patient Healthcare Agents on File Name Relationship Healthcare Agent [facility] p Communication Yoan Brandt Adult Child Health Care Rebekah t (per Health Care Power of Seed Cleaner Operator document) Care Teams Insurance Collector Relationship Specialty Start Date End Date Yamini Piper MD [address] [place] [address] PCP - General Internal Medicine 05/03/18 documented as of this encounter
--- OUTSIDE RECORDS SUMMARY | 2023-09-28 01:25 | External Medical Summary ---
Author Name Unknown Address Unknown Organization K09:[facility] [place] [address] Laboratory Report Ordering Provider Test Date Status HY,DEPAMPHILIS 09/11/2023 05:34:16 Final Observation Date Value Abnormality Reference (Units ) Status BUN 09/11/2023 05:34:16 12 6-20 (mg/dL) Final Creatinine 09/11/2023 05:34:16 0.6 0.5-1.0 (mg/dL) Final Glomerular filtration rate/1.73 sq M.predicted [Volume Rate/Area] in Serum, Plasma or Blood by Creatinine-based formula (CKD-EPI) 09/11/2023 05:34:16 >90 >=60 (mL/min) Final eGFR is calculated based on the CKD-EPI 2020 equation Sodium 09/11/2023 05:34:16 140 135-146 (m mol/L) Final Potassium 09/11/2023 05:34:16 4.2 3.5-5.1 (m mol/L) Final Cl 09/11/2023 05:34:16 105 98-107 (mm ol/L) Final CO2 09/11/2023 05:34:16 24 22-32 (mmo l/L) Final Anion gap 09/11/2023 05:34:16 11 7-15 (mmol /L) Final Glucose 09/11/2023 05:34:16 99 70-120 (mg /dL) Final Calcium 09/11/2023 05:34:16 8.0 Below low normal 8.4 -10.2 (mg/dL) Final Performing Location [facility] [place] [address]
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
--- OUTSIDE RECORDS SUMMARY | 2023-09-28 01:25 | External Medical Summary ---
Author Name Unknown Address Unknown Organization K09:[facility] [place] [address] Laboratory Report Ordering Provider Test Date Status HY,DEPAMPHILIS 09/11/2023 05:34:16 Final Observation Date Value Abnormality Reference (Units ) Status WBC, Total 09/11/2023 05:34:16 8.89 4.00-10.8 0 (K/uL) Final RBC 09/11/2023 05:34:16 2.70 3.85-5.15 (M/uL) Final Hemoglobin 09/11/2023 05:34:16 8.3 Below low normal 12 .0-15.3 (g/dL) Final HCT 09/11/2023 05:34:16 26.2 Below low normal 36. 0-45.2 (%) Final MCV 09/11/2023 05:34:16 97.0 81.5-97.5 (fL) Final MCH 09/11/2023 05:34:16 30.7 27.0-34.0 (pg) Final MCHC 09/11/2023 05:34:16 31.7 32.0-36.0 (g/dL) Final RDW 09/11/2023 05:34:16 16.0 11.5-15.5 (%) Final Platelets 09/11/2023 05:34:16 190 140-400 (K /uL) Final MPV 09/11/2023 05:34:16 10.9 6.6-11.1 ( fL) Final Performing Location [facility] [place] [address]
--- OUTSIDE RECORDS SUMMARY | 2023-09-28 01:26 | External Medical Summary ---
Author Name Unknown Address Unknown Organization : Laboratory Report Ordering Provider Test Date Status MARTHA VAUGHAN 09/09/2023 18:08:33 Final Observation Date Value Abnormality Reference (Units ) Status Glucose Point of Care 09/09/2023 18:08:33 158 Above high normal 70-120 (mg/dL) Final Performing Location
--- OUTSIDE RECORDS SUMMARY | 2023-09-28 01:26 | External Medical Summary ---
Author Name Unknown Address Unknown Organization K01:[facility] [address] [facility] [address] Laboratory Report Ordering Provider Test Date Status ANANYA GIORDANO 09/10/2023 04:07:00 Final Observation Date Value Abnormality Reference (Units ) Status WBC, Total 09/10/2023 04:07:00 8.79 4.00-10.80 (K/uL) Final RBC 09/10/2023 04:07:00 2.56 3.85-5.15 (M/uL) Final Hemoglobin 09/10/2023 04:07:00 7.8 Below low normal 12.0-15.3 (g/dL) Final HCT 09/10/2023 04:07:00 24.5 Below low normal 36.0-45.2 (%) Final MCV 09/10/2023 04:07:00 95.7 81.5-97.5 (fL) Final MCH 09/10/2023 04:07:00 30.5 27.0-34.0 (pg) Final MCHC 09/10/2023 04:07:00 31.8 32.0-36.0 (g/dL) Final RDW 09/10/2023 04:07:00 15.1 11.5-15.5 (%) Final Platelets 09/10/2023 04:07:00 149 140-400 (K/uL) Final MPV 09/10/2023 04:07:00 11.0 6.6-11.1 (fL) Final Nucleated erythrocytes/100 leukocytes [Ratio] in Blood by Automated count 09/10/2023 04:07:00 0 <=0 (/100 WBCs) Final Performing Location [facility] - [address] [place] [address]
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
--- OUTSIDE RECORDS SUMMARY | 2023-09-28 01:26 | External Medical Summary | Summary of Care ---
Author Name Unknown Organization [facility] Address [address] [place] [address] Phone [phone] Care Team Providers Care Product/Device Technologist Name Role Phone Yamini Piper MD Primary Care Provider [phone] Encounter Details Date Type Department Care Team (Latest Contact Info) Description 09/04/2023 7:55 PM EDT - 09/04/2023 11:59 PM EDT Hospital Encounter Radiology Film File [address] [place] [address] Discharge Disposition: Home - Self [...] 07/26/2017 09/30/2019 Overview: DO NOT DELETE [facility] DETECT Study: Project # [id number], Site Director: Eric Magana, PhD. SUMMARY: Goal: Establish test [...] contact study staff at ; after hours Site Director via the [facility] hospital jack tamp operator . Please contact study team before resolving/deleting from patients problem list. Study phone number: [phone]. Diagnosis changed due to Research Module. Go to Snapshot for study details. Encounter for examination fo r normal comparison and control in clinical research program 07/26/2017 10/28/2021 Overview: DO NOT DELETE - [facility] Study: Project # [id number], Site Director: Jordan Umana, MS, MPH. SUMMARY: Goal: Establish [...] contact study staff at ; after hours Site Director via the [facility] jack tamp operator . - Please contact study team before resolving/deleting from patients problem list. Study phone number: [phone]. Diagnosis changed due to Research Module. Go [...] 09/18/2023 9:00 AM EDT Office Visit Orthopaedics, [place] [address] [place] [address] Ranjeet Chowdhury Jr., MD [address] [place] [address] 12/22/2023 2:00 PM EDT Office Visit General Internal Medicine [facility] [address] [facility] [place] [address] Yamini Piper MD [address] [facility] [place] [address] 02/01/2024 10:00 AM EST Cardiac Studies Cardiology, [facility] [address] [place] [address] [facility] [address] [facility] [address] Scheduled Procedures Name Priority Associated Diagnoses Date/Ti [...] encounter Medical Devices Implanted Type Area Director Of Compliance Device Identifier Shelf Expiration Date Model / Serial / Lot Plate Lcp Pilon 3.5 7h 240.082 - [id number] Implanted:Qty: 1 on 09/05/2023 by Ranjeet Chowdhury Jr., MD at OR [facility] Right: Pelvis SYNTHES 240.082 / / Hip Head V40 Taper C C 222 0 - [id number] Implanted:Qty: 1 on 09/05/2023 by Ranjeet Chowdhury Jr., MD at OR [facility] Right: Hip TONI : ORTHOPAEDICS 07/09/2028 6260-4-122 / / [id number] Screw Selftap 3.5x36 204.836 - [id number] Implanted:Qty: 2 on 09/05/2023 by Ranjeet Chowdhury Jr., MD at OR [facility] Right: Pelvis SYNTHES 204.836 / / Screw Selftap 3.5x20 204.820 - [id number] Implanted:Qty: 2 on 09/05/2023 by Ranjeet Chowdhury Jr., MD at OR [facility] Right: Pelvis SYNTHES 204.820 / / Implant Hip Acetab Shell 50d - [id number] Implanted:Qty: 1 on 09/05/2023 by Ranjeet Chowdhury Jr., MD at OR [facility] Right: Hip TONI : ORTHOPAEDICS 11/28/2026 709-04-50D / / [id number] Screw Low Profile 6.8ass58hl - [id number] Implanted:Qty: 1 on 09/05/2023 by Ranjeet Chowdhury Jr., MD at OR [facility] Right: Hip TONI : ORTHOPAEDICS 04/05/2028 9992-0604 / / GDBJ Screw Low Profile 6.2lny63ow - [id number] Implanted:Qty: 1 on 09/05/2023 by Ranjeet Chowdhury Jr., MD at OR [facility] Right: Hip TONI : ORTHOPAEDICS 04/03/2028 8558-1138 / / GBCA Hip Liner Mdm Cocr 38 D - [id number] Implanted:Qty: 1 on 09/05/2023 by Ranjeet Chowdhury Jr., MD at OR [facility] Right: Hip TONI : ORTHOPAEDICS 07/24/2028 626-00-38D / / [id number] Implant Stem Hip Colr Std 2 - [id number] Implanted:Qty: 1 on 09/05/2023 by Ranjeet Chowdhury Jr., MD at OR [facility] Right: Hip TONI : ORTHOPAEDICS 03/13/2027 1053-3500 / / [id number] Mdm X3 Inser Liner 22x44 - [id number] Implanted:Qty: 1 on 09/05/2023 by Ranjeet Chowdhury Jr., MD at OR [facility] Right: Hip TONI : ORTHOPAEDICS 09/15/2027 7236-2-244 / / [id number] documented as of this encounter Procedures Procedure Name Priority Date/Time Associated Diagnosis Comments RADIOLOGY EXAM - CT (IMAGES ONLY, NO REPORT) Routine 09/04/2023 7:55 PM EDT documented in this encounter Results * RADIOLOGY EXAM - CT (IMAGES ONLY, NO REPORT) (09/04/2023 7:55 PM EDT) 09/04/2023 7:38 PM EDT Narrative Scheduling, Silent - 09/08/2023 9:40 AM EDT This is an imaging study not interpreted or resulted by a [facility] or [facility] contracted radiologist. Tristen Ferguson Jr., MD RAD CT documented in this encounter Advance Directives * Full Code (Latest Code Status on File) Date Activated Date Inactivated Comments 09/05/2023 3:03 AM This order refl ects the patients wishes and were consensually agreed upon. Does not want trach / peg. Question Answer Comments Discussion of Advance Directives occurred with: Patient Healthcare Agents on File Name Relationship [facility] Communication Erika Brandt Adult Child Health Care Agen t (per Health Care Power of Fountain Roller Assembler document) Care Teams Product/Device Technologist Relationship Specialty Start Date End Date Yamini Piper MD [address] [place] [address] PCP - General Internal Medicine 05/03/18 documented as of this encounter
--- OUTSIDE RECORDS SUMMARY | 2023-09-28 01:26 | External Medical Summary ---
Author Name Unknown Address Unknown Organization K01:[facility] [address] [facility] [place] [facility] [address] Laboratory Report Ordering Provider Test Date Status CANDIDA HARO 09/10/2023 04:07:00 Final Observation Date Value Abnormality Reference (Units ) Status Magnesium 09/10/2023 04:07:00 2.3 1.5-2.6 (m g/dL) Final Performing Location [facility] - [address] [place] [address]
--- OUTSIDE RECORDS SUMMARY | 2023-09-28 01:26 | External Medical Summary | Summary of Care ---
Author Name Unknown Organization [facility] Address [address] [place] [address] Phone [phone] Care Team Providers Care Legal Secretary Name Role Phone Yamini Piper MD Primary Care Provider [phone] Encounter Details Date Type Department Care Team (Latest Contact Info) Description 09/04/2023 2:10 PM EDT - 09/04/2023 2:14 PM EDT Hospital Encounter Radiology Film File [address] [place] [address] Discharge Disposition: Home - Self [...] DELETE [facility] DETECT Study: Project # [id number], Steam Plant Control Room Operator: Eric Magana, PhD. SUMMARY: Goal: Establish test [...] contact study staff at ; after hours Steam Plant Control Room Operator via the [facility] hospital ampoule washing machine operator . Please contact study team before resolving/deleting from patients problem list. Study phone number: [phone]. Diagnosis changed due to Research Module. Go to Snapshot for study details. Encounter for examination fo r normal comparison and control in clinical research program 07/26/2017 10/28/2021 Overview: DO NOT DELETE - [facility] Study: Project # [id number], Steam Plant Control Room Operator: Jordan Umana, MS, MPH. SUMMARY: Goal: Establish [...] contact study staff at ; after hours Steam Plant Control Room Operator via the [facility] ampoule washing machine operator . - Please contact study team before resolving/deleting from patients problem list. Study phone number: [phone]. Diagnosis changed due to Research Module. Go [...] 09/18/2023 9:00 AM EDT Office Visit Orthopaedics, [place] [address] [place] [address] Ranjeet Chowdhury Jr., MD [address] [place] [address] 12/22/2023 2:00 PM EDT Office Visit General Internal Medicine [facility] [address] [facility] [place] [address] Yamini Piper MD [address] [facility] [place] [address] 02/01/2024 10:00 AM EST Cardiac Studies Cardiology, [facility] [address] [facility] [place] [address] [facility] [address] Scheduled Procedures Name Priority Associated Diagnoses Date/Ti [...] this encounter Medical Devices Implanted Type Area Die Cast Supervisor Device Identifier Shelf Expiration Date Model / Serial / Lot Plate Lcp Pilon 3.5 7h 240.082 - [id number] Implanted:Qty: 1 on 09/05/2023 by Ranjeet Chowdhury Jr., MD at OR [facility] Right: Pelvis SYNTHES 240.082 / / Hip Head V40 Taper C C 222 0 - [id number] Implanted:Qty: 1 on 09/05/2023 by Ranjeet Chowdhury Jr., MD at OR [facility] Right: Hip TONI : ORTHOPAEDICS 07/09/2028 6260-4-122 / / [id number] Screw Selftap 3.5x36 204.836 - [id number] Implanted:Qty: 2 on 09/05/2023 by Ranjeet Chowdhury Jr., MD at OR [facility] Right: Pelvis SYNTHES 204.836 / / Screw Selftap 3.5x20 204.820 - [id number] Implanted:Qty: 2 on 09/05/2023 by Ranjeet Chowdhury Jr., MD at OR [facility] Right: Pelvis SYNTHES 204.820 / / Implant Hip Acetab Shell 50d - [id number] Implanted:Qty: 1 on 09/05/2023 by Ranjeet Chowdhury Jr., MD at OR [facility] Right: Hip TONI : ORTHOPAEDICS 11/28/2026 709-04-50D / / [id number] Screw Low Profile 6.5lzi40lh - [id number] Implanted:Qty: 1 on 09/05/2023 by Ranjeet Chowdhury Jr., MD at OR [facility] Right: Hip TONI : ORTHOPAEDICS 04/05/2028 2095-6839 / / GDBJ Screw Low Profile 6.1mcj63gv - [id number] Implanted:Qty: 1 on 09/05/2023 by Ranjeet Chowdhury Jr., MD at OR [facility] Right: Hip TONI : ORTHOPAEDICS 04/03/2028 6915-8531 / / GBCA Hip Liner Mdm Cocr 38 D - [id number] Implanted:Qty: 1 on 09/05/2023 by Ranjeet Chowdhury Jr., MD at OR [facility] Right: Hip TONI : ORTHOPAEDICS 07/24/2028 626-00-38D / / [id number] Implant Stem Hip Colr Std 2 - [id number] Implanted:Qty: 1 on 09/05/2023 by Ranjeet Chowdhury Jr., MD at OR [facility] Right: Hip TONI : ORTHOPAEDICS 03/13/2027 9514-4067 / / [id number] Mdm X3 Inser Liner 22x44 - [id number] Implanted:Qty: 1 on 09/05/2023 by Ranjeet Chowdhury Jr., MD at OR [facility] Right: Hip TONI : ORTHOPAEDICS 09/15/2027 7236-2-244 / / [id number] documented as of this encounter Procedures Procedure Name Priority Date/Time Associated Diagnosis Comments RADIOLOGY EXAM - GENERAL RAD (IMAGES ONLY,NO REPORT) Routine 09/04/2023 2:10 PM EDT documented in this encounter Results * RADIOLOGY EXAM - GENERAL RAD (IMAGES ONLY,NO REPORT) (09/04/2023 2:10 PM EDT) 09/04/2023 2:05 PM EDT Narrative Scheduling, Silent - 09/08/2023 9:29 AM EDT This is an imaging study not interpreted or resulted by a [facility] or [employer] contracted radiologist. Tristen Ferguson Jr., MD RADIOLOG [...] Agen t (per Health Care Power of Electric Golf Cart Repairers document) Care Teams Legal Secretary Relationship Specialty Start Date End Date Yamini Piper MD [address] [facility] [place] [address] PCP - General Internal Medicine 05/03/18 documented as of this encounter
--- OUTSIDE RECORDS SUMMARY | 2023-09-28 01:26 | External Medical Summary | Summary of Care ---
Author Name Unknown Organization [facility] Address [address] [facility] [address] Phone [phone] Care Team Providers Care Treasury Analyst Name Role Phone Yamini Piper MD Primary Care Provider [phone] Encounter Details Date Type Department Care Team (Late st Contact Info) Description 09/10/2023 Result Scan Unspecified Department Ranjeet Day, DO [address] [place] [address] <No scans attached> Allergies Active Allergy Reactions Criticality Noted Date [...] program 07/26/2017 09/30/2019 Overview: DO NOT DELETE [facility] DETECT Study: Project # [id number], Operations Officer Trust Department: Eric Magana, PhD. SUMMARY: Goal: Establish test [...] contact study staff at ; after hours Operations Officer Trust Department via the [facility] [place] hospital coal equipment operator . Please contact study team before resolving/deleting from patients problem list. Study phone number: [phone]. Diagnosis changed due to Research Module. Go to Snapshot for study details. Encounter for examination fo r normal comparison and control in clinical research program 07/26/2017 10/28/2021 Overview: DO NOT DELETE - [facility] NATE Study: Project # [id number], Operations Officer Trust Department: Jordan Umana, MS, MPH. SUMMARY: Goal: Establish [...] contact study staff at ; after hours Operations Officer Trust Department via the [facility] [place] hospital coal equipment operator . - Please contact study team before resolving/deleting from patients problem list. Study phone number: [phone]. Diagnosis changed due to Research Module. Go [...] 09/18/2023 9:00 AM EDT Office Visit Orthopaedics, [address] [address] [place] Nunez, Ranjeet Drake MD [address] [place] [address] 12/22/2023 2:00 PM EDT Office Visit General Internal Medicine [facility] [address] [facility] [place] [address] Yamini Piper MD [address] [facility] [place] [address] 02/01/2024 10:00 AM EST Cardiac Studies Cardiology, [facility] 132 [place] [address] Jourdan Johnson [facility] 132 [facility] [place] [address] Scheduled Procedures Name Priority Associated Diagnoses Date/Ti [...] this encounter Medical Devices Implanted Type Area Mobile Developer Device Identifier Shelf Expiration Date Model / Serial / Lot Plate Lcp Pilon 3.5 7h 240.082 - [id number] Implanted:Qty: 1 on 09/05/2023 by Ranjeet Chowdhury Jr., MD at OR [facility] [place] Right: Pelvis SYNTHES 240.082 / / Hip Head V40 Taper C C 222 0 - [id number] Implanted:Qty: 1 on 09/05/2023 by Ranjeet Chowdhury Jr., MD at OR [facility] [place] Right: Hip TONI : ORTHOPAEDICS 07/09/2028 6260-4-122 / / [id number] Screw Selftap 3.5x36 204.836 - [id number] Implanted:Qty: 2 on 09/05/2023 by Ranjeet Chowdhury Jr., MD at OR [facility] [place] Right: Pelvis SYNTHES 204.836 / / Screw Selftap 3.5x20 204.820 - [id number] Implanted:Qty: 2 on 09/05/2023 by Ranjeet Chowdhury Jr., MD at OR [facility] [place] Right: Pelvis SYNTHES 204.820 / / Implant Hip Acetab Shell 50d - [id number] Implanted:Qty: 1 on 09/05/2023 by Ranjeet Chowdhury Jr., MD at OR [facility] [place] Right: Hip TONI : ORTHOPAEDICS 11/28/2026 709-04-50D / / [id number] Screw Low Profile 6.5tkx37tf - [id number] Implanted:Qty: 1 on 09/05/2023 by Ranjeet Chowdhury Jr., MD at OR [facility] [place] Right: Hip TONI : ORTHOPAEDICS 04/05/2028 8586-0350 / / GDBJ Screw Low Profile 6.7cod20tc - [id number] Implanted:Qty: 1 on 09/05/2023 by Ranjeet Chowdhury Jr., MD at OR [facility] [place] Right: Hip TONI : ORTHOPAEDICS 04/03/2028 6984-6127 / / GBCA Hip Liner Mdm Cocr 38 D - [id number] Implanted:Qty: 1 on 09/05/2023 by Ranjeet Chowdhury Jr., MD at OR [facility] [place] Right: Hip TONI : ORTHOPAEDICS 07/24/2028 626-00-38D / / [id number] Implant Stem Hip Colr Std 2 - [id number] Implanted:Qty: 1 on 09/05/2023 by Ranjeet Chowdhury Jr., MD at OR [facility] [place] Right: Hip TONI : ORTHOPAEDICS 03/13/2027 1148-4255 / / [id number] Mdm X3 Inser Liner 22x44 - [id number] Implanted:Qty: 1 on 09/05/2023 by Ranjeet Chowdhury Jr., MD at OR [facility] [place] Right: Hip TONI : ORTHOPAEDICS 09/15/2027 7236-2-244 / / [id number] documented as of this encounter Procedures Procedure Name Priority Date/Time Associated Diagnosis Comments CARDIOLOGY SCANNED RESULT 09/10/2023 documented in this encounter Results * CARDIOLOGY SCANNED RESULT (09/10/2023) 09/10/2023 Ranjeet EATON documented in this encounter Advance Directives * Full Code (Latest Code Status on File) Date Activated Date Inactivated Comments 09/05/2023 3:03 AM 09/10/2023 3:03 PM This order re flects the patients wishes and were consensually agreed upon. Does not want trach / peg. Question Answer Comments Discussion of Advance Directives occurred with: Patient Healthcare Agents on File Name Relationship [facility]rika Brandt Adult Child Health Care Agen t (per Health Care Power of Econometrician document) Care Teams Treasury Analyst Relationship Specialty Start Date End Date Yamini Piper MD [address] [facility] [place], [place] [address] PCP - General Internal Medicine 05/03/18 documented as of this encounter
--- OUTSIDE RECORDS SUMMARY | 2023-09-28 01:26 | External Medical Summary | Summary of Care ---
Author Name Unknown Organization [facility] Address [address] [place] [address] Phone [phone] Care Team Providers Care Silica Dry Press Helper Name Role Phone Yamini Piper MD Primary Care Provider [phone] Encounter Details Date Type Department Care Team (Latest Contact Info) Description 09/04/2023 7:50 PM EDT - 09/04/2023 7:54 PM EDT Hospital Encounter Radiology Film File [address] [place] [address] Discharge Disposition: Home - Self [...] program 07/26/2017 09/30/2019 Overview: DO NOT DELETE [facility] DETECT Study: Project # [id number], Ash Kier Boiler: Eric Magana, PhD. SUMMARY: Goal: Establish test [...] contact study staff at ; after hours Ash Kier Boiler via the [facility] hospital candy forming machine operator . Please contact study team before resolving/deleting from patients problem list. Study phone number: [phone]. Diagnosis changed due to Research Module. Go to Snapshot for study details. Encounter for examination fo r normal comparison and control in clinical research program 07/26/2017 10/28/2021 Overview: DO NOT DELETE - [facility] Study: Project # [id number], Ash Kier Boiler: Jordan Umana, MS, MPH. SUMMARY: Goal: Establish [...] contact study staff at ; after hours Ash Kier Boiler via the [facility] candy forming machine operator . - Please contact study team before resolving/deleting from patients problem list. Study phone number: [phone]. Diagnosis changed due to Research Module. Go [...] 09/18/2023 9:00 AM EDT Office Visit Orthopaedics, [place] [address] [place] [address] Ranjeet Chowdhury Jr., MD [address] [place] [address] 12/22/2023 2:00 PM EDT Office Visit General Internal Medicine [facility] 200 [facility] [place] [address] Yamini Piper MD [address] [facility] [place] [address] 02/01/2024 10:00 AM EST Cardiac Studies Cardiology, [facility] 132 [place] [address] [facility] 132 [facility] [address] Scheduled Procedures Name Priority Associated Diagnoses Date/Ti [...] this encounter Medical Devices Implanted Type Area President And Ceo Device Identifier Shelf Expiration Date Model / Serial / Lot Plate Lcp Pilon 3.5 7h 240.082 - [id number] Implanted:Qty: 1 on 09/05/2023 by Ranjeet Chowdhury Jr., MD at OR [facility] Right: Pelvis SYNTHES 240.082 / / Hip Head V40 Taper C C 222 0 - [id number] Implanted:Qty: 1 on 09/05/2023 by Ranjeet Chowdhury Jr., MD at OR [facility] Right: Hip TONI : ORTHOPAEDICS 07/09/2028 6260-4-122 / / [id number] Screw Selftap 3.5x36 204.836 - [id number] Implanted:Qty: 2 on 09/05/2023 by Ranjeet Chowdhury Jr., MD at OR [facility] Right: Pelvis SYNTHES 204.836 / / Screw Selftap 3.5x20 204.820 - [id number] Implanted:Qty: 2 on 09/05/2023 by Ranjeet Chowdhury Jr., MD at OR [facility] Right: Pelvis SYNTHES 204.820 / / Implant Hip Acetab Shell 50d - [id number] Implanted:Qty: 1 on 09/05/2023 by Ranjeet Chowdhury Jr., MD at OR [facility] Right: Hip TONI : ORTHOPAEDICS 11/28/2026 709-04-50D / / [id number] Screw Low Profile 6.8rav53uh - [id number] Implanted:Qty: 1 on 09/05/2023 by Ranjeet Chowdhury Jr., MD at OR [facility] Right: Hip TONI : ORTHOPAEDICS 04/05/2028 7625-3221 / / GDBJ Screw Low Profile 6.7ztd91bp - [id number] Implanted:Qty: 1 on 09/05/2023 by Ranjeet Chowdhury Jr., MD at OR [facility] Right: Hip TONI : ORTHOPAEDICS 04/03/2028 1366-4179 / / GBCA Hip Liner Mdm Cocr 38 D - [id number] Implanted:Qty: 1 on 09/05/2023 by Ranjeet Chowdhury Jr., MD at OR [facility] Right: Hip TONI : ORTHOPAEDICS 07/24/2028 626-00-38D / / [id number] Implant Stem Hip Colr Std 2 - [id number] Implanted:Qty: 1 on 09/05/2023 by Ranjeet Chowdhury Jr., MD at OR [facility] Right: Hip TONI : ORTHOPAEDICS 03/13/2027 6138-0163 / / [id number] Mdm X3 Inser Liner 22x44 - [id number] Implanted:Qty: 1 on 09/05/2023 by Ranjeet Chowdhury Jr., MD at OR [facility] Right: Hip TONI : ORTHOPAEDICS 09/15/2027 7236-2-244 / / [id number] documented as of this encounter Procedures Procedure Name Priority Date/Time Associated Diagnosis Comments RADIOLOGY EXAM - CT (IMAGES ONLY, NO REPORT) Routine 09/04/2023 7:50 PM EDT documented in this encounter Results * RADIOLOGY EXAM - CT (IMAGES ONLY, NO REPORT) (09/04/2023 7:50 PM EDT) 09/04/2023 7:38 PM EDT Narrative Scheduling, Silent - 09/08/2023 9:38 AM EDT This is an imaging study not interpreted or resulted by a [facility] or [employer] contracted radiologist. Tristen Ferguson Jr., MD RAD [...] Agents on File Name Relationship Healthcare Agent [facility] Communication Erika Brandt Adult Child Health Care Agen t (per Health Care Power of Sales Representative Raw Fibers document) Care Teams Silica Dry Press Helper Relationship Specialty Start Date End Date Yamini Piper MD 200 [place] [address] PCP - General Internal Medicine 05/03/18 documented as of this encounter
--- OUTSIDE RECORDS SUMMARY | 2023-09-28 01:26 | External Medical Summary | Summary of Care ---
Author Name Unknown Organization [facility] Address [address] [place] [address] Phone [phone] Care Team Providers Care Food Processing Plant Manager Name Role Phone Yamini Piper MD Primary Care Provider [phone] Encounter Details Date Type Department Care Team (Latest Contact Info) Description 09/04/2023 3:50 PM EDT - 09/04/2023 7:39 PM EDT Hospital Encounter Radiology Film File [address] [place] [address] Discharge Disposition: Home - Self [...] DELETE [facility] DETECT Study: Project # [id number], Mason Liner: Eric Magana, PhD. SUMMARY: Goal: Establish test [...] contact study staff at ; after hours Mason Liner via the [facility] hospital shale planer operator . Please contact study team before resolving/deleting from patients problem list. Study phone number: [phone]. Diagnosis changed due to Research Module. Go to Snapshot for study details. Encounter for examination fo r normal comparison and control in clinical research program 07/26/2017 10/28/2021 Overview: DO NOT DELETE - [facility] Study: Project # [id number], Mason Liner: Jordan Umana, MS, MPH. SUMMARY: Goal: Establish [...] contact study staff at ; after hours Mason Liner via the [facility] shale planer operator . - Please contact study team before resolving/deleting from patients problem list. Study phone number: [phone]. Diagnosis changed due to Research Module. Go [...] 09/18/2023 9:00 AM EDT Office Visit Orthopaedics, [place] [address] [place] [address] Ranjeet Chowdhury Jr., MD [address] [place] [address] 12/22/2023 2:00 PM EDT Office Visit General Internal Medicine [facility] 200 [facility] [address] Yamini Piper MD 200 [facility] [address] 02/01/2024 10:00 AM EST Cardiac Studies Cardiology, [facility] [address] [address] [facility] [address] Scheduled Procedures Name Priority Associated Diagnoses Date/Ti [...] this encounter Medical Devices Implanted Type Area Adobe Maker Device Identifier Shelf Expiration Date Model / Serial / Lot Plate Lcp Pilon 3.5 7h 240.082 - [id number] Implanted:Qty: 1 on 09/05/2023 by Ranjeet Chowdhury Jr., MD at OR [facility] Right: Pelvis SYNTHES 240.082 / / Hip Head V40 Taper C C 222 0 - [id number] Implanted:Qty: 1 on 09/05/2023 by Ranjeet Chowdhury Jr., MD at OR [facility] Right: Hip TONI : ORTHOPAEDICS 07/09/2028 6260-4-122 / / [id number] Screw Selftap 3.5x36 204.836 - [id number] Implanted:Qty: 2 on 09/05/2023 by Ranjeet Chowdhury Jr., MD at OR [facility] Right: Pelvis SYNTHES 204.836 / / Screw Selftap 3.5x20 204.820 - [id number] Implanted:Qty: 2 on 09/05/2023 by Ranjeet Chowdhury Jr., MD at OR [facility] Right: Pelvis SYNTHES 204.820 / / Implant Hip Acetab Shell 50d - [id number] Implanted:Qty: 1 on 09/05/2023 by Ranjeet Chowdhury Jr., MD at OR [facility] Right: Hip TONI : ORTHOPAEDICS 11/28/2026 709-04-50D / / [id number] Screw Low Profile 6.5kdh13um - [id number] Implanted:Qty: 1 on 09/05/2023 by Ranjeet Chowdhury Jr., MD at OR [facility] Right: Hip TONI : ORTHOPAEDICS 04/05/2028 8251-7109 / / GDBJ Screw Low Profile 6.8oat89ym - [id number] Implanted:Qty: 1 on 09/05/2023 by Ranjeet Chowdhury Jr., MD at OR [facility] Right: Hip TONI : ORTHOPAEDICS 04/03/2028 2662-7440 / / GBCA Hip Liner Mdm Cocr 38 D - [id number] Implanted:Qty: 1 on 09/05/2023 by Ranjeet Chowdhury Jr., MD at OR [facility] Right: Hip TONI : ORTHOPAEDICS 07/24/2028 626-00-38D / / [id number] Implant Stem Hip Colr Std 2 - [id number] Implanted:Qty: 1 on 09/05/2023 by Ranjeet Chowdhury Jr., MD at OR [facility] Right: Hip TONI : ORTHOPAEDICS 03/13/2027 5697-1290 / / [id number] Mdm X3 Inser Liner 22x44 - [id number] Implanted:Qty: 1 on 09/05/2023 by Ranjeet Chowdhury Jr., MD at OR [facility] Right: Hip TONI : ORTHOPAEDICS 09/15/2027 7236-2-244 / / [id number] documented as of this encounter Procedures Procedure Name Priority Date/Time Associated Diagnosis Comments RADIOLOGY EXAM - CT (IMAGES ONLY, NO REPORT) Routine 09/04/2023 3:50 PM EDT documented in this encounter Results * RADIOLOGY EXAM - CT (IMAGES ONLY, NO REPORT) (09/04/2023 3:50 PM EDT) 09/04/2023 3:46 PM EDT Narrative Scheduling, Silent - 09/08/2023 9:26 AM EDT This is an imaging study not interpreted or resulted by a [facility] or [employer] contracted radiologist. Tristen Ferguson Jr., MD RAD [...] File Name Relationship Healthcare Agent [facility] Communication Erika Brandt Adult Child Health Care Agen t (per Health Care Power of Assistant Spa Manager document) Care Teams Food Processing Plant Manager Relationship Specialty Start Date End Date Yamini Piper MD [address] [place] [address] PCP - General Internal Medicine 05/03/18 documented as of this encounter
--- OUTSIDE RECORDS SUMMARY | 2023-09-28 01:26 | External Medical Summary ---
Author Name Unknown Address Unknown Organization K01:LABORATORY [facility] - [address] [facility] [address] Laboratory Report Ordering Provider Test Date Status ANANYA GIORDANO 09/09/2023 17:41:00 Final Observation Date Value Abnormality Reference (Units ) Status WBC, Total 09/09/2023 17:41:00 6.71 4.00-10.80 (K/uL) Final RBC 09/09/2023 17:41:00 2.61 3.85-5.15 (M/uL) Final Hemoglobin 09/09/2023 17:41:00 8.0 Below low normal 12.0-15.3 (g/dL) Final HCT 09/09/2023 17:41:00 24.7 Below low normal 36.0-45.2 (%) Final MCV 09/09/2023 17:41:00 94.6 81.5-97.5 (fL) Final MCH 09/09/2023 17:41:00 30.7 27.0-34.0 (pg) Final MCHC 09/09/2023 17:41:00 32.4 32.0-36.0 (g/dL) Final RDW 09/09/2023 17:41:00 15.1 11.5-15.5 (%) Final Platelets 09/09/2023 17:41:00 132 Below low normal 140-400 (K/uL) Final MPV 09/09/2023 17:41:00 10.9 6.6-11.1 (fL) Final Nucleated erythrocytes/100 leukocytes [Ratio] in Blood by Automated count 09/09/2023 17:41:00 0 <=0 (/100 WBCs) Final Performing Location LABORATORY [facility] - [address] [place] [address]
--- OUTSIDE RECORDS SUMMARY | 2023-09-28 01:26 | External Medical Summary ---
Author Name Unknown Address Unknown Organization K01:LABORATORY [facility] - [address] [place] [address] Laboratory Report Ordering Provider Test Date Status CANDIDA HARO 09/10/2023 04:07:00 Final Observation Date Value Abnormality Reference (Units ) Status Phosphate 09/10/2023 04:07:00 3.0 2.5-4.8 (m g/dL) Final Performing Location LABORATORY [facility] - [address] [place] [address]
--- OUTSIDE RECORDS SUMMARY | 2023-09-28 01:26 | External Medical Summary ---
Author Name Unknown Address Unknown Organization K01:[facility] [place] [address] [facility] [address] [place] [address] Laboratory Report Ordering Provider Test Date Status CANDIDA HARO 09/10/2023 04:07:00 Final Observation Date Value Abnormality Reference (Units ) Status BUN 09/10/2023 04:07:00 11 6-20 (mg/dL) Final Creatinine 09/10/2023 04:07:00 0.6 0.5-1.0 (mg/dL) Final Glomerular filtration rate/1.73 sq M.predicted [Volume Rate/Area] in Serum, Plasma or Blood by Creatinine-based formula (CKD-EPI) 09/10/2023 04:07:00 >90 >=60 (mL/min) Final eGFR is calculated based on the CKD-EPI 2020 equation Sodium 09/10/2023 04:07:00 137 135-146 (m mol/L) Final Potassium 09/10/2023 04:07:00 4.1 3.5-5.1 (m mol/L) Final Cl 09/10/2023 04:07:00 105 98-107 (mm ol/L) Final CO2 09/10/2023 04:07:00 23 22-32 (mmo l/L) Final Anion gap 09/10/2023 04:07:00 9 7-15 (mmol /L) Final Glucose 09/10/2023 04:07:00 107 70-120 (mg /dL) Final Calcium 09/10/2023 04:07:00 8.5 8.4-10.2 ( mg/dL) Final Performing Location [facility] [place] [address] [place] [address]
--- OUTSIDE RECORDS SUMMARY | 2023-09-28 01:26 | External Medical Summary ---
Author Name Unknown Address Unknown Organization K01:LABORATORY [facility] [place] [facility] [address] [facility] [address] Laboratory Report Ordering Provider Test Date Status MANDEEP BAZAN 09/10/2023 08:25:00 Final Observation Date Value Abnormality Reference (Units ) Status WBC, Total 09/10/2023 08:25:00 9.22 4.00-10.80 (K/uL) Final RBC 09/10/2023 08:25:00 2.94 3.85-5.15 (M/uL) Final Hemoglobin 09/10/2023 08:25:00 9.0 Below low normal 12.0-15.3 (g/dL) Final HCT 09/10/2023 08:25:00 28.0 Below low normal 36.0-45.2 (%) Final MCV 09/10/2023 08:25:00 95.2 81.5-97.5 (fL) Final MCH 09/10/2023 08:25:00 30.6 27.0-34.0 (pg) Final MCHC 09/10/2023 08:25:00 32.1 32.0-36.0 (g/dL) Final RDW 09/10/2023 08:25:00 15.3 11.5-15.5 (%) Final Platelets 09/10/2023 08:25:00 145 140-400 (K/uL) Final MPV 09/10/2023 08:25:00 11.2 6.6-11.1 (fL) Final Nucleated erythrocytes/100 leukocytes [Ratio] in Blood by Automated count 09/10/2023 08:25:00 0 <=0 (/100 WBCs) Final Performing Location LABORATORY C - [address] [facility] [address]
--- OUTSIDE RECORDS SUMMARY | 2023-09-28 01:26 | External Medical Summary | Summary of Care ---
Author Name Unknown Organization [facility] Address [address] [place] [address] Phone [phone] Care Team Providers Care Vocational Evaluator Name Role Phone Yamini Piper MD Primary Care Provider [phone] Encounter Details Date Type Department Care Team (Latest Contact Info) Description 09/04/2023 2:15 PM EDT - 09/04/2023 2:19 PM EDT Hospital Encounter Radiology Film File [address] [place] [address] Discharge Disposition: Home - Self [...] [facility] DETECT Study: Project # [id number], Medical Office Rep: Eric Magana, PhD. SUMMARY: Goal: Establish test [...] contact study staff at ; after hours Medical Office Rep via the [facility] hospital traveling plant operator . Please contact study team before resolving/deleting from patients problem list. Study phone number: [phone]. Diagnosis changed due to Research Module. Go to Snapshot for study details. Encounter for examination fo r normal comparison and control in clinical research program 07/26/2017 10/28/2021 Overview: DO NOT DELETE - [facility] Study: Project # [id number], Medical Office Rep: Jordan Umana, MS, MPH. SUMMARY: Goal: Establish [...] contact study staff at ; after hours Medical Office Rep via the [facility] traveling plant operator . - Please contact study team before resolving/deleting from patients problem list. Study phone number: [phone]. Diagnosis changed due to Research Module. Go [...] 09/18/2023 9:00 AM EDT Office Visit Orthopaedics, [place] [address] [place] [address] Ranjeet Chowdhury Jr., MD [address] [place] [address] 12/22/2023 2:00 PM EDT Office Visit General Internal Medicine [facility] [address] [facility] [place] [address] Yamini Piper MD [address] [facility] [place] [address] 02/01/2024 10:00 AM EST Cardiac Studies Cardiology, [facility] [address] [facility] [address] [facility] [address] [facility] [address] Scheduled Procedures Name Priority Associated Diagnoses Date/Ti [...] this encounter Medical Devices Implanted Type Area Java Performance Engineer Device Identifier Shelf Expiration Date Model / Serial / Lot Plate Lcp Pilon 3.5 7h 240.082 - [id number] Implanted:Qty: 1 on 09/05/2023 by Ranjeet Chowdhury Jr., [place] [facility] Right: Pelvis SYNTHES 240.082 / / Hip Head V40 Taper C C 222 0 - [id number] Implanted:Qty: 1 on 09/05/2023 by Ranjeet Chowdhury Jr., MD [place] [facility] [place]: Hip TONI : ORTHOPAEDICS 07/09/2028 6260-4-122 / / [id number] Screw Selftap 3.5x36 204.836 - [id number] Implanted:Qty: 2 on 09/05/2023 by Ranjeet Chowdhury Jr., MD [place] [facility] [place]: Pelvis SYNTHES 204.836 / / Screw Selftap 3.5x20 204.820 - [id number] Implanted:Qty: 2 on 09/05/2023 by Ranjeet Chowdhury Jr., MD at [place] [facility] [place]: Pelvis SYNTHES 204.820 / / Implant Hip Acetab Shell 50d - [id number] Implanted:Qty: 1 on 09/05/2023 by Ranjeet Chowdhury Jr., MD at [place] [facility] [place]: Hip TONI : ORTHOPAEDICS 11/28/2026 709-04-50D / / [id number] Screw Low Profile 6.9tqv22wk - [id number] Implanted:Qty: 1 on 09/05/2023 by Ranjeet Chowdhury Jr., MD at [place] [facility] Right: Hip TONI : ORTHOPAEDICS 04/05/2028 8978-3619 / / [id number] Screw Low Profile 6.7jau20pk - [id number] Implanted:Qty: 1 on 09/05/2023 by Ranjeet Chowdhury Jr., MD at [place] [facility] Right: Hip TONI : ORTHOPAEDICS 04/03/2028 8763-2173 / / GBCA Hip Liner Mdm Cocr 38 D - [id number] Implanted:Qty: 1 on 09/05/2023 by Ranjeet Chowdhury Jr., MD at [place] [facility] Right: Hip TONI : ORTHOPAEDICS 07/24/2028 626-00-38D / / [id number] Implant Stem Hip Colr Std 2 - [id number] Implanted:Qty: 1 on 09/05/2023 by Ranjeet Chowdhury Jr., MD at [place] [facility] Right: Hip TONI : ORTHOPAEDICS 03/13/2027 5380-0094 / / [id number] Mdm X3 Inser Liner 22x44 - [id number] Implanted:Qty: 1 on 09/05/2023 by Ranjeet Chowdhury Jr., MD at [place] [facility] Right: Hip TONI : ORTHOPAEDICS 09/15/2027 7236-2-244 / / [id number] documented as of this encounter Procedures Procedure Name Priority Date/Time Associated Diagnosis Comments RADIOLOGY EXAM - GENERAL RAD (IMAGES ONLY,NO REPORT) Routine 09/04/2023 2:15 PM EDT documented in this encounter Results * RADIOLOGY EXAM - GENERAL RAD (IMAGES ONLY,NO REPORT) (09/04/2023 2:15 PM EDT) 09/04/2023 2:12 PM EDT Narrative Scheduling, Silent - 09/08/2023 9:24 AM EDT This is an imaging study not interpreted or resulted by a [facility] or [employer] contracted radiologist. Tristen Ferguson Jr., MD RADIOLOG [...] Agen t (per Health Care Power of Trimming Caser document) Care Teams Vocational Evaluator Relationship Specialty Start Date End Date Yamini Piper MD [address] [facility] [place] [address] PCP - General Internal Medicine 05/03/18 documented as of this encounter
--- OUTSIDE RECORDS SUMMARY | 2023-09-28 01:27 | External Medical Summary ---
Author Name Unknown Address Unknown Organization K01:LABORATORY [facility] [address] [facility] [place] [address] Laboratory Report Ordering Provider Test Date Status CANDIDA HARO 09/09/2023 04:04:00 Final Observation Date Value Abnormality Reference (Units ) Status Calcium.ionized [Moles/volume] in Serum or Plasma by Ion-selective membrane electrode (ISE) 09/09/2023 04:04:00 1.14 1.13-1.32 (mmol/L) Final This test was developed and its performance characteristics dtermined by [employer]. It has not been cleared or approved by the US Food and Drug Administration Performing Location LABORATORY [place] [address] [place] [address]
--- OUTSIDE RECORDS SUMMARY | 2023-09-28 01:27 | External Medical Summary ---
Author Name Unknown Address Unknown Organization K01:LABORATORY [facility] [place] - [address] [facility] [address] Laboratory Report Ordering Provider Test Date Status CANDIDA HARO 09/09/2023 04:04:00 Final Observation Date Value Abnormality Reference (Units ) Status Phosphate 09/09/2023 04:04:00 2.4 Below low normal 2.5 -4.8 (mg/dL) Final Performing Location LAB[facility]ORY [facility] - [address] [facility] [address]
--- OUTSIDE RECORDS SUMMARY | 2023-09-28 01:27 | External Medical Summary | Summary of Care ---
Author Name Unknown Organization [facility] Address [address] [place] [address] Phone [phone] Care Team Providers Care Coin Machine Operator Name Role Phone Yamini Piper MD Primary Care Provider [phone] Encounter Details Date Type Department Care Team (Late st Contact Info) Description 09/04/2023 Orders Only Unspecified Department Tristen Ferguson Jr., MD [address] [place] [address] Allergies Active Allergy Reactions Criticality Noted Date Comments Pollen 06/17/2014 Nasal congestion documented as of this encounter (statuses as of 09/08/2023) Medications Medication Sig Dispensed Refills Start Date [...] as of this encounter (statuses as of 09/08/2023) Active Problems Problem Noted Date Diagnosed Date [...] as of this encounter (statuses as of 09/08/2023) Resolved Problems Problem Noted Date Diagnosed Date Resolved Date Encounter for examination fo r normal comparison and control in clinical research program 07/26/2017 09/30/2019 Overview: DO NOT DELETE [facility] DETECT Study: Project # [id number], Physician Allergist Immunologist: Eric Magana, PhD. SUMMARY: Goal: Establish test [...] contact study staff at ; after hours Physician Allergist Immunologist via the [facility] hospital fur blower operator . Please contact study team before resolving/deleting from patients problem list. Study phone number: [phone]. Diagnosis changed due to Research Module. Go to Snapshot for study details. Encounter for examination fo r normal comparison and control in clinical research program 07/26/2017 10/28/2021 Overview: DO NOT DELETE - [facility] Study: Project # [id number], Physician Allergist Immunologist: Jordan Umana, MS, MPH. SUMMARY: Goal: Establish [...] contact study staff at ; after hours Physician Allergist Immunologist via the [facility] fur blower operator . - Please contact study team before resolving/deleting from patients problem list. Study phone number: [phone]. Diagnosis changed due to Research Module. Go to Snapshot for study details. Prediabetes 04/11/2017 05/09/2019 Overview: Per Prediabetes protocol #1 documented as of this encounter (statuses as of 09/08/2023) Immunizations Name Administration Dates Next Due COVID-19 [...] 09/18/2023 9:00 AM EDT Office Visit Orthopaedics, [place] [address] [place] [address] Ranjeet Chowdhury Jr., MD [address] [place] [address] 12/22/2023 2:00 PM EDT Office Visit General Internal Medicine [facility] [address] [facility] [place] [address] Yamini Piper MD [address] [facility] [place] [address] 02/01/2024 10:00 AM EST Cardiac Studies Cardiology, [facility] [address] [facility] [place] [address] [facility] [address] Scheduled Procedures Name Priority Associated Diagnoses Date/Ti [...] this encounter Medical Devices Implanted Type Area Raw Sampler Device Identifier Shelf Expiration Date Model / Serial / Lot Plate Lcp Pilon 3.5 7h 240.082 - [id number] Implanted:Qty: 1 on 09/05/2023 by Ranjeet Chowdhury Jr., MD at [place] [facility] Right: Pelvis SYNTHES 240.082 / / Hip Head V40 Taper C C 222 0 - [id number] Implanted:Qty: 1 on 09/05/2023 by Ranjeet Chowdhury Jr., MD at OR [facility] Right: Hip TONI : ORTHOPAEDICS 07/09/2028 6260-4-122 / / [id number] Screw Selftap 3.5x36 204.836 - [id number] Implanted:Qty: 2 on 09/05/2023 by Ranjeet Chowdhury Jr., MD at [place] [facility] Right: Pelvis SYNTHES 204.836 / / Screw Selftap 3.5x20 204.820 - [id number] Implanted:Qty: 2 on 09/05/2023 by Ranjeet Chowdhury Jr., MD at [place] [facility] Right: Pelvis SYNTHES 204.820 / / Implant Hip Acetab Shell 50d - [id number] Implanted:Qty: 1 on 09/05/2023 by Ranjeet Chowdhury Jr., MD at OR [facility] Right: Hip TONI : ORTHOPAEDICS 11/28/2026 709-04-50D / / [id number] Screw Low Profile 6.2cdx90tz - [id number] Implanted:Qty: 1 on 09/05/2023 by Ranjeet Chowdhury Jr., MD at [place] [facility] Right: Hip TONI : ORTHOPAEDICS 04/05/2028 9410-1021 / / GDBJ Screw Low Profile 6.7rtg89kx - [id number] Implanted:Qty: 1 on 09/05/2023 by Ranjeet Chowdhury Jr., MD at [place] [facility] Right: Hip TONI : ORTHOPAEDICS 04/03/2028 4278-0736 / / GBCA Hip Liner Mdm Cocr 38 D - [id number] Implanted:Qty: 1 on 09/05/2023 by Ranjeet Chowdhury Jr., MD at [place] [facility] Right: Hip TONI : ORTHOPAEDICS 07/24/2028 626-00-38D / / [id number] Implant Stem Hip Colr Std 2 - [id number] Implanted:Qty: 1 on 09/05/2023 by Ranjeet Chowdhury Jr., MD at [place] [facility] Right: Hip TONI : ORTHOPAEDICS 03/13/2027 2514-2697 / / [id number] Mdm X3 Inser Liner 22x44 - [id number] Implanted:Qty: 1 on 09/05/2023 by Ranjeet Chowdhury Jr., MD at [place] [facility] Right: Hip TONI : ORTHOPAEDICS 09/15/2027 7236-2-244 / / [id number] documented as of this encounter Procedures Procedure [...] interpreted or resulted by a [facility] or [employer] contracted radiologist. Tristen Ferguson Jr., MD RAD [...] Agents on File Name Relationship [facility] Erika Brandt Adult [facility] Health [facility] Agen t (per Health Care Power of Web Marketing Coordinator document) Care Teams Coin Machine Operator Relationship Specialty Start Date End Date Yamini Piper MD [address] [place] [address] PCP - General Internal Medicine 05/03/18 documented as of this encounter
--- OUTSIDE RECORDS SUMMARY | 2023-09-28 01:27 | External Medical Summary ---
Author Name Unknown Address Unknown Organization K01:LABORATORY [facility] [place] - [address] [facility] [address] Laboratory Report Ordering Provider Test Date Status ANANYA GIORDANO 09/09/2023 04:04:00 Final Observation Date Value Abnormality Reference (Units ) Status WBC, Total 09/09/2023 04:04:00 7.88 4.00-10.80 (K/uL) Final RBC 09/09/2023 04:04:00 2.86 3.85-5.15 (M/uL) Final Hemoglobin 09/09/2023 04:04:00 8.8 Below low normal 12.0-15.3 (g/dL) Final HCT 09/09/2023 04:04:00 26.6 Below low normal 36.0-45.2 (%) Final MCV 09/09/2023 04:04:00 93.0 81.5-97.5 (fL) Final MCH 09/09/2023 04:04:00 30.8 27.0-34.0 (pg) Final MCHC 09/09/2023 04:04:00 33.1 32.0-36.0 (g/dL) Final RDW 09/09/2023 04:04:00 15.1 11.5-15.5 (%) Final Platelets 09/09/2023 04:04:00 98 Below low normal 140-400 (K/uL) Final MPV 09/09/2023 04:04:00 10.8 6.6-11.1 (fL) Final Nucleated erythrocytes/100 leukocytes [Ratio] in Blood by Automated count 09/09/2023 04:04:00 0 <=0 (/100 WBCs) Final Performing Location LABORATORY [facility] - [address] [place] [address]
--- OUTSIDE RECORDS SUMMARY | 2023-09-28 01:27 | External Medical Summary | Summary of Care ---
Author Name Unknown Organization [facility] Address [address] [place] [address] Phone [phone] Care Team Providers Care Explosives Truck Driver Name Role Phone Yamini Piper MD Primary Care Provider [phone] Encounter Details Date Type Department Care Team (Late st Contact Info) Description 09/04/2023 Orders Only Unspecified Department Tristen Ferguson Jr., MD [address] [place] [address] Allergies Active Allergy Reactions Criticality [...] 07/26/2017 09/30/2019 Overview: DO NOT DELETE [facility] DETECT Study: Project # [id number], Germ Drier: Eric Magana, PhD. SUMMARY: Goal: Establish test [...] contact study staff at ; after hours Germ Drier via the [facility] hospital cantilever crane operator . Please contact study team before resolving/deleting from patients problem list. Study phone number: [phone]. Diagnosis changed due to Research Module. Go to Snapshot for study details. Encounter for examination fo r normal comparison and control in clinical research program 07/26/2017 10/28/2021 Overview: DO NOT DELETE - [facility] Study: Project # [id number], Germ Drier: Jordan Umana, MS, MPH. SUMMARY: Goal: Establish [...] contact study staff at ; after hours Germ Drier via the [facility] cantilever crane operator . - Please contact study team before resolving/deleting from patients problem list. Study phone number: [phone]. Diagnosis changed due to Research Module. Go [...] 09/18/2023 9:00 AM EDT Office Visit Orthopaedics, [place] [address] [place] [address] Ranjeet Chowdhury Jr., MD [address] [place] [address] 12/22/2023 2:00 PM EDT Office Visit General Internal Medicine [facility] [address] [place] [address] Yamini Piper MD [address] [place] [address] 02/01/2024 10:00 AM EST Cardiac Studies Cardiology, [facility] [address] [place] [address] [facility] [address] [facility] [address] Scheduled Procedures Name Priority Associated Diagnoses Date/Ti [...] this encounter Medical Devices Implanted Type Area Electrician Crane Maintenance Device Identifier Shelf Expiration Date Model / Serial / Lot Plate Lcp Pilon 3.5 7h 240.082 - [id number] Implanted:Qty: 1 on 09/05/2023 by Ranjeet Chowdhury Jr., MD at OR [facility] Right: Pelvis SYNTHES 240.082 / / Hip Head V40 Taper C C 222 0 - [id number] Implanted:Qty: 1 on 09/05/2023 by Ranjeet Chowdhury Jr., MD at OR [facility] Right: Hip TONI : ORTHOPAEDICS 07/09/2028 6260-4-122 / / [id number] Screw Selftap 3.5x36 204.836 - [id number] Implanted:Qty: 2 on 09/05/2023 by Ranjeet Chowdhury Jr., MD at OR [facility] Right: Pelvis SYNTHES 204.836 / / Screw Selftap 3.5x20 204.820 - [id number] Implanted:Qty: 2 on 09/05/2023 by Ranjeet Chowdhury Jr., MD at OR [facility] Right: Pelvis SYNTHES 204.820 / / Implant Hip Acetab Shell 50d - [id number] Implanted:Qty: 1 on 09/05/2023 by Ranjeet Chowdhury Jr., MD at OR [facility] Right: Hip TONI : ORTHOPAEDICS 11/28/2026 709-04-50D / / [id number] Screw Low Profile 6.6bvj20dd - [id number] Implanted:Qty: 1 on 09/05/2023 by Ranjeet Chowdhury Jr., MD at OR [facility] Right: Hip TONI : ORTHOPAEDICS 04/05/2028 5405-3202 / / GDBJ Screw Low Profile 6.6wnd90ue - [id number] Implanted:Qty: 1 on 09/05/2023 by Ranjeet Chowdhury Jr., MD at OR [facility] Right: Hip TONI : ORTHOPAEDICS 04/03/2028 2938-5122 / / GBCA Hip Liner Mdm Cocr 38 D - [id number] Implanted:Qty: 1 on 09/05/2023 by Ranjeet Chowdhury Jr., MD at OR [facility] Right: Hip TONI : ORTHOPAEDICS 07/24/2028 626-00-38D / / [id number] Implant Stem Hip Colr Std 2 - [id number] Implanted:Qty: 1 on 09/05/2023 by Ranjeet Chowdhury Jr., MD at OR [facility] Right: Hip TONI : ORTHOPAEDICS 03/13/2027 4150-0424 / / [id number] Mdm X3 Inser Liner 22x44 - [id number] Implanted:Qty: 1 on 09/05/2023 by Ranjeet Chowdhury Jr., MD at OR [facility] Right: Hip TONI : ORTHOPAEDICS 09/15/2027 7236-2-244 / / [id number] documented as of this encounter Procedures Procedure [...] interpreted or resulted by a [facility] or [employer] contracted radiologist. Tristen Ferguson Jr., MD RADIOLOG [...] Agen t (per Health Care Power of Crew Truck Driver document) Care Teams Explosives Truck Driver Relationship Specialty Start Date End Date Yamini Piper MD [address] [place] [address] PCP - General Internal Medicine 05/03/18 documented as of this encounter
--- OUTSIDE RECORDS SUMMARY | 2023-09-28 01:27 | External Medical Summary ---
Author Name Unknown Address Unknown Organization K01:LABORATORY [facility] - [address] [facility] [address] Laboratory Report Ordering Provider Test Date Status CANDIDA HARO 09/09/2023 04:04:00 Final Observation Date Value Abnormality Reference (Units ) Status Magnesium 09/09/2023 04:04:00 2.3 1.5-2.6 (m g/dL) Final Performing Location LAB[facility]ATORY [facility] - [address] [place] [address]
--- OUTSIDE RECORDS SUMMARY | 2023-09-28 01:27 | External Medical Summary | Summary of Care ---
Author Name Unknown Organization [facility] Address [address] [place] [address] Phone [phone] Care Team Providers Care Show Host/Hostess Name Role Phone Yamini Piper MD Primary Care Provider [phone] Encounter Details Date Type Department Care Team (Latest Contact Info) Description 09/04/2023 7:40 PM EDT - 09/04/2023 7:44 PM EDT Hospital Encounter Radiology Film File [address] [place] [address] Discharge Disposition: Home - Self [...] DELETE [facility] DETECT Study: Project # [id number], Cell Tower Climber: Eric Magana, PhD. SUMMARY: Goal: Establish test [...] contact study staff at ; after hours Cell Tower Climber via the [facility] teletypewriter operator . Please contact study team before resolving/deleting from patients problem list. Study phone number: [phone]. Diagnosis changed due to Research Module. Go to Snapshot for study details. Encounter for examination fo r normal comparison and control in clinical research program 07/26/2017 10/28/2021 Overview: DO NOT DELETE - [facility] Study: Project # [id number], Cell Tower Climber: Jordan Umana, MS, MPH. SUMMARY: Goal: Establish [...] contact study staff at ; after hours Cell Tower Climber via the [facility] teletypewriter operator . - Please contact study team before resolving/deleting from patients problem list. Study phone number: [phone]. Diagnosis changed due to Research Module. Go [...] 09/18/2023 9:00 AM EDT Office Visit Orthopaedics, [place] [address] [place] [address] Ranjeet Chowdhury Jr., MD [address] [place] [address] 12/22/2023 2:00 PM EDT Office Visit General Internal Medicine [facility] [address] [place] [address] Yamini Piper MD [address] [facility] [place] [address] 02/01/2024 10:00 AM EST Cardiac Studies Cardiology, [facility] [address] [place] [address] [facility] [address] Scheduled Procedures Name Priority Associated Diagnoses Date/Ti [...] this encounter Medical Devices Implanted Type Area It Programmer Analyst Device Identifier Shelf Expiration Date Model / Serial / Lot Plate Lcp Pilon 3.5 7h 240.082 - [id number] Implanted:Qty: 1 on 09/05/2023 by Ranjeet Chowdhury Jr., [place] [facility] Right: Pelvis SYNTHES 240.082 / / Hip Head V40 Taper C C 222 0 - [id number] Implanted:Qty: 1 on 09/05/2023 by Ranjeet Chowdhury Jr., [place] [facility] [place]: Hip TONI : ORTHOPAEDICS 07/09/2028 6260-4-122 / / [id number] Screw Selftap 3.5x36 204.836 - [id number] Implanted:Qty: 2 on 09/05/2023 by Ranjeet Chowdhury Jr., [place] [facility] [place]: Pelvis SYNTHES 204.836 / / Screw Selftap 3.5x20 204.820 - [id number] Implanted:Qty: 2 on 09/05/2023 by Ranjeet Chowdhury Jr., MD [place] [facility] [place]: Pelvis SYNTHES 204.820 / / Implant Hip Acetab Shell 50d - [id number] Implanted:Qty: 1 on 09/05/2023 by Ranjeet Chowdhury Jr., [place] [facility] [place]: Hip TONI : ORTHOPAEDICS 11/28/2026 709-04-50D / / [id number] Screw Low Profile 6.2ssr84wu - [id number] Implanted:Qty: 1 on 09/05/2023 by Ranjeet Chowdhury Jr., MD [place] [facility] [place]: Hip TONI : ORTHOPAEDICS 04/05/2028 0002-4658 / / GDBJ Screw Low Profile 6.3qnj64nn - [id number] Implanted:Qty: 1 on 09/05/2023 by Ranjeet Chowdhury Jr., MD [place] [facility] [place]: Hip TONI : ORTHOPAEDICS 04/03/2028 6766-9238 / / GBCA Hip Liner Mdm Cocr 38 D - [id number] Implanted:Qty: 1 on 09/05/2023 by Ranjeet Chowdhury Jr., [place] [facility] [place]: Hip TONI : ORTHOPAEDICS 07/24/2028 626-00-38D / / [id number] Implant Stem Hip Colr Std 2 - [id number] Implanted:Qty: 1 on 09/05/2023 by Ranjeet Chowdhury Jr., [place] [facility] [place]: Hip TONI : ORTHOPAEDICS 03/13/2027 1297-6475 / / [id number] Mdm X3 Inser Liner 22x44 - [id number] Implanted:Qty: 1 on 09/05/2023 by Ranjeet Chowdhury Jr., MD [place] [facility] [place]: Hip TONI : ORTHOPAEDICS 09/15/2027 7236-2-244 / / [id number] documented as of this encounter Procedures Procedure Name Priority Date/Time Associated Diagnosis Comments RADIOLOGY EXAM - CT (IMAGES ONLY, NO REPORT) Routine 09/04/2023 7:40 PM EDT documented in this encounter Results * RADIOLOGY EXAM - CT (IMAGES ONLY, NO REPORT) (09/04/2023 7:40 PM EDT) 09/04/2023 7:38 PM EDT Narrative Scheduling, Silent - 09/08/2023 9:33 AM EDT This is an imaging study not interpreted or resulted by a [facility] or [employer] contracted radiologist. Tristen Ferguson Jr., MD RAD [...] File Name Relationship Healthcare [facility] Communication Erika Brandt Adult Child Health Care Agen t (per Health Care Power of Loan Funder document) Care Teams Show Host/Hostess Relationship Specialty Start Date End Date Yamini Piper MD [address] [place] [address], [place] [address] PCP - General Internal Medicine 05/03/18 documented as of this encounter
--- OUTSIDE RECORDS SUMMARY | 2023-09-28 01:27 | External Medical Summary | Summary of Care ---
Author Name Unknown Organization [facility] Address [address] [place] [address] Phone [phone] Care Team Providers Care Rib Cutter Name Role Phone Yamini Piper MD Primary Care Provider [phone] Encounter Details Date Type Department Care Team (Late st Contact Info) Description 09/04/2023 Orders Only Unspecified Department Tristen Ferguson Jr., MD [address] [place] [address] Allergies Active Allergy Reactions Criticality [...] [facility] DETECT Study: Project # [id number], Drafter Apprentice: Eric Magana, PhD. SUMMARY: Goal: Establish test [...] contact study staff at ; after hours Drafter Apprentice via the [facility] hospital dexigraph operator . Please contact study team before resolving/deleting from patients problem list. Study phone number: [phone]. Diagnosis changed due to Research Module. Go to Snapshot for study details. Encounter for examination fo r normal comparison and control in clinical research program 07/26/2017 10/28/2021 Overview: DO NOT DELETE - [facility] Study: Project # [id number], Drafter Apprentice: Jordan Umana, MS, MPH. SUMMARY: Goal: Establish [...] contact study staff at ; after hours Drafter Apprentice via the [facility] dexigraph operator . - Please contact study team before resolving/deleting from patients problem list. Study phone number: [phone]. Diagnosis changed due to Research Module. Go [...] 09/18/2023 9:00 AM EDT Office Visit Orthopaedics, [place] [address] [place] [address] Ranjeet Chowdhury Jr., MD [address] [place] [address] 12/22/2023 2:00 PM EDT Office Visit General Internal Medicine [facility] [address] [place] [address] Yamini Piper MD [address] [facility] [place] [address] 02/01/2024 10:00 AM EST Cardiac Studies Cardiology, [facility] 132 [place] [address] [facility] [address] Scheduled Procedures Name Priority Associated Diagnoses Date/Ti [...] this encounter Medical Devices Implanted Type Area Roadability Machine Operator Device Identifier Shelf Expiration Date Model / Serial / Lot Plate Lcp Pilon 3.5 7h 240.082 - [id number] Implanted:Qty: 1 on 09/05/2023 by Ranjeet Chowdhury Jr., MD at [place] [facility] Right: Pelvis SYNTHES 240.082 / / Hip Head V40 Taper C C 222 0 - [id number] Implanted:Qty: 1 on 09/05/2023 by Ranjeet Chowdhury Jr., MD at OR [facility] Right: Hip TONI : ORTHOPAEDICS 07/09/2028 6260-4-122 / / [id number] Screw Selftap 3.5x36 204.836 - [id number] Implanted:Qty: 2 on 09/05/2023 by Ranjeet Chowdhury Jr., MD at OR [facility] Right: Pelvis SYNTHES 204.836 / / Screw Selftap 3.5x20 204.820 - [id number] Implanted:Qty: 2 on 09/05/2023 by Ranjeet Chowdhury Jr., MD at OR [facility] Right: Pelvis SYNTHES 204.820 / / Implant Hip Acetab Shell 50d - [id number] Implanted:Qty: 1 on 09/05/2023 by Ranjeet Chowdhury Jr., MD at OR [facility] Right: Hip TONI : ORTHOPAEDICS 11/28/2026 709-04-50D / / [id number] Screw Low Profile 6.6fwe87dn - [id number] Implanted:Qty: 1 on 09/05/2023 by Ranjeet Chowdhury Jr., MD at OR [facility] Right: Hip TONI : ORTHOPAEDICS 04/05/2028 4799-6736 / / GDBJ Screw Low Profile 6.9mwg58tk - [id number] Implanted:Qty: 1 on 09/05/2023 by Ranjeet Chowdhury Jr., MD at OR [facility] Right: Hip TONI : ORTHOPAEDICS 04/03/2028 3750-1633 / / GBCA Hip Liner Mdm Cocr 38 D - [id number] Implanted:Qty: 1 on 09/05/2023 by Ranjeet Chowdhury Jr., MD at OR [facility] Right: Hip TONI : ORTHOPAEDICS 07/24/2028 626-00-38D / / [id number] Implant Stem Hip Colr Std 2 - [id number] Implanted:Qty: 1 on 09/05/2023 by Ranjeet Chowdhury Jr., MD at OR [facility] Right: Hip TONI : ORTHOPAEDICS 03/13/2027 4809-4543 / / [id number] Mdm X3 Inser Liner 22x44 - [id number] Implanted:Qty: 1 on 09/05/2023 by Ranjeet Chowdhury Jr., MD at OR [facility] Right: Hip TONI : ORTHOPAEDICS 09/15/2027 7236-2-244 / / [id number] documented as of this encounter Procedures Procedure [...] interpreted or resulted by a [facility] or [employer] contracted radiologist. Tristen Ferguson Jr., MD RADIOLOG [...] Agen t (per Health Care Power of Show Horse Driver document) Care Teams Rib Cutter Relationship Specialty Start Date End Date Yamini Piper MD [address] [facility] [place] [address] PCP - General Internal Medicine 05/03/18 documented as of this encounter
--- OUTSIDE RECORDS SUMMARY | 2023-09-28 01:27 | External Medical Summary | Summary of Care ---
Author Name Unknown Organization [facility] Address [address] [place] [address] Phone [phone] Care Team Providers Care Pulp Tester Name Role Phone Yamini Piper MD Primary Care Provider [phone] Encounter Details Date Type Department Care Team (Late st Contact Info) Description 09/04/2023 Orders Only Unspecified Department Tristen Ferguson Jr., MD [address] [place] [address] Allergies Active Allergy Reactions Criticality [...] 07/26/2017 09/30/2019 Overview: DO NOT DELETE [facility] DETECT Study: Project # [id number], Managing Consultant: Eric Magana, PhD. SUMMARY: Goal: Establish test [...] contact study staff at ; after hours Managing Consultant via the [facility] hospital hat brim and crown laminating operator . Please contact study team before resolving/deleting from patients problem list. Study phone number: [phone]. Diagnosis changed due to Research Module. Go to Snapshot for study details. Encounter for examination fo r normal comparison and control in clinical research program 07/26/2017 10/28/2021 Overview: DO NOT DELETE - [facility] Study: Project # [id number], Managing Consultant: Jordan Umana, MS, MPH. SUMMARY: Goal: Establish [...] contact study staff at ; after hours Managing Consultant via the [facility] hat brim and crown laminating operator . - Please contact study team before resolving/deleting from patients problem list. Study phone number: [phone]. Diagnosis changed due to Research Module. Go [...] 09/18/2023 9:00 AM EDT Office Visit Orthopaedics, [place] [address] [place] [address] Ranjeet Chowdhury Jr., MD [address] [place] [address] 12/22/2023 2:00 PM EDT Office Visit General Internal Medicine [facility] [address] [facility] [place] [address] Yamini Piper MD [address] [facility] [place] [address] 02/01/2024 10:00 AM EST Cardiac Studies Cardiology, [facility] 132 [place] [address] [facility] [address] Scheduled Procedures Name Priority Associated Diagnoses Date/Ti [...] this encounter Medical Devices Implanted Type Area Milk Handler Device Identifier Shelf Expiration Date Model / Serial / Lot Plate Lcp Pilon 3.5 7h 240.082 - [id number] Implanted:Qty: 1 on 09/05/2023 by Ranjeet Chowdhury Jr., MD [place] [facility] [place]: Pelvis SYNTHES 240.082 / / Hip Head V40 Taper C C 222 0 - [id number] Implanted:Qty: 1 on 09/05/2023 by Ranjeet Chowdhury Jr., MD at [place] [facility] Right: Hip TONI : ORTHOPAEDICS 07/09/2028 6260-4-122 / / [id number] Screw Selftap 3.5x36 204.836 - [id number] Implanted:Qty: 2 on 09/05/2023 by Ranjeet Chowdhury Jr., MD at [place] [facility] Right: Pelvis SYNTHES 204.836 / / Screw Selftap 3.5x20 204.820 - [id number] Implanted:Qty: 2 on 09/05/2023 by Ranjeet Chowdhury Jr., MD at [place] [facility] Right: Pelvis SYNTHES 204.820 / / Implant Hip Acetab Shell 50d - [id number] Implanted:Qty: 1 on 09/05/2023 by Ranjeet Chowdhury Jr., MD at [place] [facility] Right: Hip TONI : ORTHOPAEDICS 11/28/2026 709-04-50D / / [id number] Screw Low Profile 6.8ehz18jn - [id number] Implanted:Qty: 1 on 09/05/2023 by Ranjeet Chowdhury Jr., MD at [place] [facility] Right: Hip TONI : ORTHOPAEDICS 04/05/2028 0829-0666 / / GDBJ Screw Low Profile 6.0cne04vb - [id number] Implanted:Qty: 1 on 09/05/2023 by Ranjeet Chowdhury Jr., MD at [place] [facility] Right: Hip TONI : ORTHOPAEDICS 04/03/2028 7970-6548 / / GBCA Hip Liner Mdm Cocr 38 D - [id number] Implanted:Qty: 1 on 09/05/2023 by Ranjeet Chowdhury Jr., MD at [place] [facility] Right: Hip TONI : ORTHOPAEDICS 07/24/2028 626-00-38D / / [id number] Implant Stem Hip Colr Std 2 - [id number] Implanted:Qty: 1 on 09/05/2023 by Ranjeet Chowdhury Jr., MD at [place] [facility] Right: Hip TONI : ORTHOPAEDICS 03/13/2027 4505-9754 / / [id number] Mdm X3 Inser Liner 22x44 - [id number] Implanted:Qty: 1 on 09/05/2023 by Ranjeet Chowdhury Jr., MD at [place] [facility] Right: Hip TONI : ORTHOPAEDICS 09/15/2027 7236-2-244 / / [id number] documented as of this encounter Procedures Procedure [...] interpreted or resulted by a [facility] or [employer] contracted radiologist. Tristen Ferguson Jr., MD RAD [...] Agen t (per Health Care Power of Manager Ccu document) Care Teams Pulp Tester Relationship Specialty Start Date End Date Yamini Piper MD [address] [place] [address] PCP - General Internal Medicine 05/03/18 documented as of this encounter
--- OUTSIDE RECORDS SUMMARY | 2023-09-28 01:27 | External Medical Summary | Summary of Care ---
Author Name Unknown Organization [facility] Address [address] [place] [address] Phone [phone] Care Team Providers Care Pump Erector Helper Name Role Phone Yamini Piper MD Primary Care Provider [phone] Encounter Details Date Type Department Care Team (Late st Contact Info) Description 09/04/2023 Orders Only Unspecified Department Tristen Ferguson Jr., MD [address] [place] [address] Allergies Active Allergy Reactions Criticality [...] program 07/26/2017 09/30/2019 Overview: DO NOT DELETE [facility] DETECT Study: Project # [id number], Manager Mortgage: Eric Magana, PhD. SUMMARY: Goal: Establish test [...] contact study staff at ; after hours Manager Mortgage via the [facility] hospital ways operator . Please contact study team before resolving/deleting from patients problem list. Study phone number: [phone]. Diagnosis changed due to Research Module. Go to Snapshot for study details. Encounter for examination fo r normal comparison and control in clinical research program 07/26/2017 10/28/2021 Overview: DO NOT DELETE - [facility] Study: Project # [id number], Manager Mortgage: Jordan Umana, MS, MPH. SUMMARY: Goal: Establish [...] contact study staff at ; after hours Manager Mortgage via the [facility] ways operator . - Please contact study team before resolving/deleting from patients problem list. Study phone number: [phone]. Diagnosis changed due to Research Module. Go [...] 09/18/2023 9:00 AM EDT Office Visit Orthopaedics, [place] [address] [place] [address] Ranjeet Chowdhury Jr., MD [address] [place] [address] 12/22/2023 2:00 PM EDT Office Visit General Internal Medicine [facility] 200 [place] [address] Yamini Piper MD [address] [facility] [place] [address] 02/01/2024 10:00 AM EST Cardiac Studies Cardiology, [facility] 132 [place] [address] [facility] [address] [facility] [address] Scheduled Procedures Name Priority Associated Diagnoses Date/Ti [...] this encounter Medical Devices Implanted Type Area Environmental Marketing Representative Device Identifier Shelf Expiration Date Model / Serial / Lot Plate Lcp Pilon 3.5 7h 240.082 - [id number] Implanted:Qty: 1 on 09/05/2023 by Ranjeet Chowdhury Jr., MD at [place] [facility] Right: Pelvis SYNTHES 240.082 / / Hip Head V40 Taper C C 222 0 - [id number] Implanted:Qty: 1 on 09/05/2023 by Ranjeet Chowdhury Jr., MD at [place] [facility] Right: Hip TONI : ORTHOPAEDICS 07/09/2028 6260-4-122 / / [id number] Screw Selftap 3.5x36 204.836 - [id number] Implanted:Qty: 2 on 09/05/2023 by Ranjeet Chowdhury Jr., MD at [place] [facility] Right: Pelvis SYNTHES 204.836 / / Screw Selftap 3.5x20 204.820 - [id number] Implanted:Qty: 2 on 09/05/2023 by Ranjeet Chowdhury Jr., MD at [place] [facility] Right: Pelvis SYNTHES 204.820 / / Implant Hip Acetab Shell 50d - [id number] Implanted:Qty: 1 on 09/05/2023 by Ranjeet Chowdhury Jr., MD at [place] [facility] Right: Hip TONI : ORTHOPAEDICS 11/28/2026 709-04-50D / / [id number] Screw Low Profile 6.3ysx81xk - [id number] Implanted:Qty: 1 on 09/05/2023 by Ranjeet Chowdhury Jr., MD at [place] [facility] Right: Hip TONI : ORTHOPAEDICS 04/05/2028 5163-3173 / / GDBJ Screw Low Profile 6.2ump14sf - [id number] Implanted:Qty: 1 on 09/05/2023 by Ranjeet Chowdhury Jr., MD at [place] [facility] Right: Hip TONI : ORTHOPAEDICS 04/03/2028 9755-1054 / / GBCA Hip Liner Mdm Cocr 38 D - [id number] Implanted:Qty: 1 on 09/05/2023 by Ranjeet Chowdhury Jr., MD at [place] [facility] Right: Hip TONI : ORTHOPAEDICS 07/24/2028 626-00-38D / / [id number] Implant Stem Hip Colr Std 2 - [id number] Implanted:Qty: 1 on 09/05/2023 by Ranjeet Chowdhury Jr., MD at [place] [facility] Right: Hip TONI : ORTHOPAEDICS 03/13/2027 0824-4551 / / [id number] Mdm X3 Inser Liner 22x44 - [id number] Implanted:Qty: 1 on 09/05/2023 by Ranjeet Chowdhury Jr., MD at [place] [facility] Right: Hip TONI : ORTHOPAEDICS 09/15/2027 7236-2-244 / / [id number] documented as of this encounter Procedures Procedure [...] interpreted or resulted by a [facility] or [employer] contracted radiologist. Tristen Ferguson Jr., MD RAD [...] File Name Relationship Healthcare [facility] Communication Erika Brandt Adult Child Health Care Agen t (per Health Care Power of Porcelain Enamel Sprayer document) Care Teams Pump Erector Helper Relationship Specialty Start Date End Date Yamini Piper MD [address] [place] [address], [place] [address] PCP - General Internal Medicine 05/03/18 documented as of this encounter
--- OUTSIDE RECORDS SUMMARY | 2023-09-28 01:27 | External Medical Summary ---
Author Name Unknown Address Unknown Organization K01:[facility] [place] [facility] [address] [address] [facility] [address] Laboratory Report Ordering Provider Test Date Status ANANYA GIORDANO 09/09/2023 09:55:00 Final Observation Date Value Abnormality Reference (Units ) Status LMW Heparin [Units/volume] in Platelet poor plasma by Chromogenic method 09/09/2023 09:55:00 0.33 Above high normal <0.10 (IU/mL) Final Low molecular weight heparin 's therapeutic range is 0.6 - 1.00 I.U./mL. Performing Location [facility] [place] [place] [address] [place] [address]
--- OUTSIDE RECORDS SUMMARY | 2023-09-28 01:27 | External Medical Summary | Summary of Care ---
Author Name Unknown Organization [facility] Address [address] [place] [address] Phone [phone] Care Team Providers Care Hospital Nurse Liaison Name Role Phone Yamini Piper MD Primary Care Provider Encounter Details Date Type Department Care Team (Late st Contact Info) Description 09/08/2023 Result Scan Unspecified Department Edith Haywood MD [address] [place] [address] <No scans attached> Allergies Active Allergy Reactions [...] DELETE [facility] DETECT Study: Project # [id number], Jewelry Sorter: Eric Magana, PhD. SUMMARY: Goal: Establish test [...] contact study staff at ; after hours Jewelry Sorter via the [facility] hospital disk operator . Please contact study team before resolving/deleting from patients problem list. Study phone number: [phone]. Diagnosis changed due to Research Module. Go to Snapshot for study details. Encounter for examination fo r normal comparison and control in clinical research program 07/26/2017 10/28/2021 Overview: DO NOT DELETE - [facility] Study: Project # [id number], Jewelry Sorter: Jordan Umana, MS, MPH. SUMMARY: Goal: Establish [...] contact study staff at ; after hours Jewelry Sorter via the [facility] disk operator . - Please contact study team before resolving/deleting from patients problem list. Study phone number: [phone]. Diagnosis changed due to Research Module. Go [...] 09/18/2023 9:00 AM EDT Office Visit Orthopaedics, [place] [address] [place] [address] Ranjeet Chowdhury Jr., MD [address] [place] [address] 12/22/2023 2:00 PM EDT Office Visit General Internal Medicine [facility] [address] [facility] [place] [address] Yamini Piper MD [address] [facility] [place] [address] 02/01/2024 10:00 AM EST Cardiac Studies Cardiology, [facility] [address] [place] [address] [facility] [address] [place] [address] Scheduled Procedures Name Priority Associated Diagnoses Date/Ti [...] this encounter Medical Devices Implanted Type Area Finance Business Partner Device Identifier Shelf Expiration Date Model / Serial / Lot Plate Lcp Pilon 3.5 7h 240.082 - [id number] Implanted:Qty: 1 on 09/05/2023 by Ranjeet Chowdhury Jr., MD [place] [facility] Right: Pelvis SYNTHES 240.082 / / Hip Head V40 Taper C C 222 0 - [id number] Implanted:Qty: 1 on 09/05/2023 by Ranjeet Chowdhury Jr., MD at [place] [facility] Right: Hip TONI : ORTHOPAEDICS 07/09/2028 6260-4-122 / / [id number] Screw Selftap 3.5x36 204.836 - [id number] Implanted:Qty: 2 on 09/05/2023 by Ranjeet Chowdhury Jr., MD at [place] [facility] Right: Pelvis SYNTHES 204.836 / / Screw Selftap 3.5x20 204.820 - [id number] Implanted:Qty: 2 on 09/05/2023 by Ranjeet Chowdhury Jr., MD at [place] [facility] Right: Pelvis SYNTHES 204.820 / / Implant Hip Acetab Shell 50d - [id number] Implanted:Qty: 1 on 09/05/2023 by Ranjeet Chowdhury Jr., MD at [place] [facility] Right: Hip TONI : ORTHOPAEDICS 11/28/2026 709-04-50D / / [id number] Screw Low Profile 6.5tjf53hy - [id number] Implanted:Qty: 1 on 09/05/2023 by Ranjeet Chowdhury Jr., MD at [place] [facility] Right: Hip TONI : ORTHOPAEDICS 04/05/2028 4331-6116 / / [id number] Screw Low Profile 6.4efg94ph - [id number] Implanted:Qty: 1 on 09/05/2023 by Ranjeet Chowdhury Jr., MD at [place] [facility] Right: Hip TONI : ORTHOPAEDICS 04/03/2028 7529-1782 / / GBCA Hip Liner Mdm Cocr 38 D - [id number] Implanted:Qty: 1 on 09/05/2023 by Ranjeet Chowdhury Jr., MD at [place] [facility] Right: Hip TONI : ORTHOPAEDICS 07/24/2028 626-00-38D / / [id number] Implant Stem Hip Colr Std 2 - [id number] Implanted:Qty: 1 on 09/05/2023 by Ranjeet Chowdhury Jr., MD at [place] [facility] Right: Hip TONI : ORTHOPAEDICS 03/13/2027 7769-4716 / / [id number] Mdm X3 Inser Liner 22x44 - [id number] Implanted:Qty: 1 on 09/05/2023 by Ranjeet Chowdhury Jr., MD at [place] [facility] Right: Hip TONI : ORTHOPAEDICS 09/15/2027 7236-2-244 / / [id number] documented as of this encounter Procedures Procedure Name Priority Date/Time Associated Diagnosis Comments CARDIOLOGY SCANNED RESULT 09/08/2023 documented in this encounter Results * CARDIOLOGY SCANNED RESULT (09/08/2023) 09/08/2023 Edith Haywood MD OTHER documented in this encounter Advance Directives * [...] Agen t (per Health Care Power of Veterinary Practitioner document) Care Teams Hospital Nurse Liaison Relationship Specialty Start Date End Date Yamini Piper MD [address] [place] [address] PCP - General Internal Medicine 05/03/18 documented as of this encounter
--- OUTSIDE RECORDS SUMMARY | 2023-09-28 01:27 | External Medical Summary ---
Author Name Unknown Address Unknown Organization K01:LABORATORY [facility] - [address] [place] [address] Laboratory Report Ordering Provider Test Date Status TAHIRCANDIDA 09/09/2023 04:04:00 Final Observation Date Value Abnormality Reference (Units ) Status BUN 09/09/2023 04:04:00 9 6-20 (mg/dL) Final Creatinine 09/09/2023 04:04:00 0.5 0.5-1.0 (mg/dL) Final Glomerular filtration rate/1.73 sq M.predicted [Volume Rate/Area] in Serum, Plasma or Blood by Creatinine-based formula (CKD-EPI) 09/09/2023 04:04:00 >90 >=60 (mL/min) Final eGFR is calculated based on the CKD-EPI 2020 equation Sodium 09/09/2023 04:04:00 138 135-146 (m mol/L) Final Potassium 09/09/2023 04:04:00 3.8 3.5-5.1 (m mol/L) Final Cl 09/09/2023 04:04:00 108 Above high normal 98 -107 (mmol/L) Final CO2 09/09/2023 04:04:00 23 22-32 (mmo l/L) Final Anion gap 09/09/2023 04:04:00 7 7-15 (mmol /L) Final Glucose 09/09/2023 04:04:00 106 70-120 (mg /dL) Final Calcium 09/09/2023 04:04:00 8.0 Below low normal 8.4 -10.2 (mg/dL) Final Performing Location LABORATORY [facility] - [address] [place] [address]
--- OUTSIDE RECORDS SUMMARY | 2023-09-28 01:27 | External Medical Summary ---
Author Name Unknown Address Unknown Organization K01:LABORATORY [facility] [place] - [address] [facility] [address] [facility] [address] Laboratory Report Ordering Provider Test Date Status ANANYA GIORDANO 09/08/2023 20:46:00 Final Observation Date Value Abnormality Reference (Units ) Status WBC, Total 09/08/2023 20:46:00 10.28 4.00-10.80 (K/uL) Final RBC 09/08/2023 20:46:00 3.14 3.85-5.15 (M/uL) Final Hemoglobin 09/08/2023 20:46:00 9.5 Below low normal 12.0-15.3 (g/dL) Final HCT 09/08/2023 20:46:00 28.8 Below low normal 36.0-45.2 (%) Final MCV 09/08/2023 20:46:00 91.7 81.5-97.5 (fL) Final MCH 09/08/2023 20:46:00 30.3 27.0-34.0 (pg) Final MCHC 09/08/2023 20:46:00 33.0 32.0-36.0 (g/dL) Final RDW 09/08/2023 20:46:00 15.2 11.5-15.5 (%) Final Platelets 09/08/2023 20:46:00 89 Below low normal 140-400 (K/uL) Final MPV 09/08/2023 20:46:00 12.0 6.6-11.1 (fL) Final Nucleated erythrocytes/100 leukocytes [Ratio] in Blood by Automated count 09/08/2023 20:46:00 0 <=0 (/100 WBCs) Final Performing Location LABORATORY [facility] - [address] [place] [address]
--- OUTSIDE RECORDS SUMMARY | 2023-09-28 01:27 | External Medical Summary | Summary of Care ---
Author Name Unknown Organization [facility] Address [address] [place] [address] Phone [phone] Care Team Providers Care Telephone Lines Repairer Name Role Phone Yamini Piper MD Primary Care Provider [phone] Encounter Details Date Type Department Care Team (Latest Contact Info) Description 09/04/2023 7:45 PM EDT - 09/04/2023 7:49 PM EDT Hospital Encounter Radiology Film File [address] [place] [address] Discharge Disposition: Home - Self [...] [facility] Study: Project # [id number], Field Clinical Engineer: Eric Magana, PhD. SUMMARY: Goal: Establish test [...] contact study staff at ; after hours Field Clinical Engineer via the [facility] hospital lace machine operator . Please contact study team before resolving/deleting from patients problem list. Study phone number: [phone]. Diagnosis changed due to Research Module. Go to Snapshot for study details. Encounter for examination fo r normal comparison and control in clinical research program 07/26/2017 10/28/2021 Overview: DO NOT DELETE - [facility] Study: Project # [id number], Field Clinical Engineer: Jordan Umana, MS, MPH. SUMMARY: Goal: Establish [...] contact study staff at ; after hours Field Clinical Engineer via the [facility] lace machine operator . - Please contact study team before resolving/deleting from patients problem list. Study phone number: [phone]. Diagnosis changed due to Research Module. Go [...] 09/18/2023 9:00 AM EDT Office Visit Orthopaedics, [place] [address] [place] [address] Ranjeet Chowdhury Jr., MD [address] [place] [address] 12/22/2023 2:00 PM EDT Office Visit General Internal Medicine [facility] [address] [facility] [place] [address] Yamini Piper MD [address] [place] [address] 02/01/2024 10:00 AM EST Cardiac Studies Cardiology, [facility] 132 [facility] [place] [address] [facility] [address] Scheduled Procedures Name Priority Associated Diagnoses Date/Ti [...] this encounter Medical Devices Implanted Type Area Teaching Manager Device Identifier Shelf Expiration Date Model / Serial / Lot Plate Lcp Pilon 3.5 7h 240.082 - [id number] Implanted:Qty: 1 on 09/05/2023 by Ranjeet Chowdhury Jr., [place] [facility] [place]: Pelvis SYNTHES 240.082 / / Hip Head V40 Taper C C 222 0 - [id number] Implanted:Qty: 1 on 09/05/2023 by Ranjeet Chowdhury Jr., MD [place] [facility] [place]: Hip TONI : ORTHOPAEDICS 07/09/2028 6260-4-122 / / [id number] Screw Selftap 3.5x36 204.836 - [id number] Implanted:Qty: 2 on 09/05/2023 by Ranjeet Chowdhury Jr., MD [place] [facility] Right: Pelvis SYNTHES 204.836 / / Screw Selftap 3.5x20 204.820 - [id number] Implanted:Qty: 2 on 09/05/2023 by Ranjeet Chowdhury Jr., MD [place] [facility] Right: Pelvis SYNTHES 204.820 / / Implant Hip Acetab Shell 50d - [id number] Implanted:Qty: 1 on 09/05/2023 by Ranjeet Chowdhury Jr., MD [place] [facility] Right: Hip TONI : ORTHOPAEDICS 11/28/2026 709-04-50D / / [id number] Screw Low Profile 6.0ccn26gc - [id number] Implanted:Qty: 1 on 09/05/2023 by Ranjeet Chowdhury Jr., MD [place] [facility] Right: Hip TONI : ORTHOPAEDICS 04/05/2028 1543-9512 / / GDBJ Screw Low Profile 6.8gky62tr - [id number] Implanted:Qty: 1 on 09/05/2023 by Ranjeet Chowdhury Jr., MD [place] [facility] Right: Hip TONI : ORTHOPAEDICS 04/03/2028 3763-4746 / / GBCA Hip Liner Mdm Cocr 38 D - [id number] Implanted:Qty: 1 on 09/05/2023 by Ranjeet Chowdhury Jr., MD [place] [facility] Right: Hip TONI : ORTHOPAEDICS 07/24/2028 626-00-38D / / [id number] Implant Stem Hip Colr Std 2 - [id number] Implanted:Qty: 1 on 09/05/2023 by Ranjeet Chowdhury Jr., MD at [place] [facility] Right: Hip TONI : ORTHOPAEDICS 03/13/2027 5919-4418 / / [id number] Mdm X3 Inser Liner 22x44 - [id number] Implanted:Qty: 1 on 09/05/2023 by Ranjeet Chowdhury Jr., MD at [place] [facility] Right: Hip TONI : ORTHOPAEDICS 09/15/2027 7236-2-244 / / [id number] documented as of this encounter Procedures Procedure Name Priority Date/Time Associated Diagnosis Comments RADIOLOGY EXAM - CT (IMAGES ONLY, NO REPORT) Routine 09/04/2023 7:45 PM EDT documented in this encounter Results * RADIOLOGY EXAM - CT (IMAGES ONLY, NO REPORT) (09/04/2023 7:45 PM EDT) 09/04/2023 7:38 PM EDT Narrative Scheduling, Silent - 09/08/2023 9:35 AM EDT This is an imaging study not interpreted or resulted by a [facility] or [employer] contracted radiologist. Tristen [place] Jr., MD RAD [...] Agents on File Name Relationship Healthcare Agent [facility] Communication Erika Brandt Adult Child Health Care Agen t (per Health Care Power of Diet Aide document) Care Teams Telephone Lines Repairer Relationship Specialty Start Date End Date Yamini Piper MD [address] [facility] [place] [address] PCP - General Internal Medicine 05/03/18 documented as of this encounter
--- OUTSIDE RECORDS SUMMARY | 2023-09-28 01:27 | External Medical Summary | Summary of Care ---
Author Name Unknown Organization [facility] Address [address] [place] [address] Phone [phone] Care Team Providers Care Monotype Machinist Name Role Phone Yamini Piper MD Primary Care Provider Encounter Details Date Type Department Care Team (Late st Contact Info) Description 09/04/2023 Orders Only Unspecified Department Tristen [place] Jr., MD [address] [place] [address] Allergies Active Allergy Reactions Criticality [...] DELETE [facility] DETECT Study: Project # [id number], Plate Painter: Eric Magana, PhD. SUMMARY: Goal: Establish test [...] contact study staff at ; after hours Plate Painter via the [facility] hospital sander operator . Please contact study team before resolving/deleting from patients problem list. Study phone number: [phone]. Diagnosis changed due to Research Module. Go to Snapshot for study details. Encounter for examination fo r normal comparison and control in clinical research program 07/26/2017 10/28/2021 Overview: DO NOT DELETE - [facility] Study: Project # [id number], Plate Painter: Jordan Umana, MS, MPH. SUMMARY: Goal: Establish [...] contact study staff at ; after hours Plate Painter via the [facility] sander operator . - Please contact study team before resolving/deleting from patients problem list. Study phone number: [phone]. Diagnosis changed due to Research Module. Go [...] 09/18/2023 9:00 AM EDT Office Visit Orthopaedics, [place] [address] [place] [address] Ranjeet Chowdhury Jr., MD [address] [place] [address] 12/22/2023 2:00 PM EDT Office Visit General Internal Medicine [facility] 200 [facility] [place] [address] Yamini Piper MD [address] [facility] [place] [address] 02/01/2024 10:00 AM EST Cardiac Studies Cardiology, [facility] [address] [place] [address] [facility] [address] Scheduled Procedures Name Priority Associated Diagnoses Date/Ti [...] this encounter Medical Devices Implanted Type Area Secondary Spanish Teacher Device Identifier Shelf Expiration Date Model / Serial / Lot Plate Lcp Pilon 3.5 7h 240.082 - [id number] Implanted:Qty: 1 on 09/05/2023 by Ranjeet Chowdhury Jr., MD at OR [facility] Right: Pelvis SYNTHES 240.082 / / Hip Head V40 Taper C C 222 0 - [id number] Implanted:Qty: 1 on 09/05/2023 by Ranjeet Chowdhury Jr., MD at OR [facility] Right: Hip TONI : ORTHOPAEDICS 07/09/2028 6260-4-122 / / [id number] Screw Selftap 3.5x36 204.836 - [id number] Implanted:Qty: 2 on 09/05/2023 by Ranjeet Chowdhury Jr., MD at OR [facility] Right: Pelvis SYNTHES 204.836 / / Screw Selftap 3.5x20 204.820 - [id number] Implanted:Qty: 2 on 09/05/2023 by Ranjeet Chowdhury Jr., MD at OR [facility] Right: Pelvis SYNTHES 204.820 / / Implant Hip Acetab Shell 50d - [id number] Implanted:Qty: 1 on 09/05/2023 by Ranjeet Chowdhury Jr., MD at OR [facility] Right: Hip TONI : ORTHOPAEDICS 11/28/2026 709-04-50D / / [id number] Screw Low Profile 6.6mky15ke - [id number] Implanted:Qty: 1 on 09/05/2023 by Ranjeet Chowdhury Jr., MD at OR [facility] Right: Hip TONI : ORTHOPAEDICS 04/05/2028 3102-1129 / / [id number] Screw Low Profile 6.9xsg56yq - [id number] Implanted:Qty: 1 on 09/05/2023 by Ranjeet Chowdhury Jr., MD at OR [facility] Right: Hip TONI : ORTHOPAEDICS 04/03/2028 4175-0153 / / GBCA Hip Liner Mdm Cocr 38 D - [id number] Implanted:Qty: 1 on 09/05/2023 by Ranjeet Chowdhury Jr., MD at OR [facility] Right: Hip TONI : ORTHOPAEDICS 07/24/2028 626-00-38D / / [id number] Implant Stem Hip Colr Std 2 - [id number] Implanted:Qty: 1 on 09/05/2023 by Ranjeet Chowdhury Jr., MD at OR [facility] Right: Hip TONI : ORTHOPAEDICS 03/13/2027 5328-0313 / / [id number] Mdm X3 Inser Liner 22x44 - [id number] Implanted:Qty: 1 on 09/05/2023 by Ranjeet Chwodhury Jr., MD at OR [facility] Right: Hip TONI : ORTHOPAEDICS 09/15/2027 7236-2-244 / / [id number] documented as of this encounter Procedures Procedure [...] interpreted or resulted by a [facility] or [employer] contracted radiologist. Tristen [place] Jr., MD RAD [...] Agents on File Name Relationship Healthcare Agent [facility] Communication Erika Brandt Adult Child Health Care Agen t (per Health Care Power of Qm Consultant document) Care Teams Monotype Machinist Relationship Specialty Start Date End Date Yamini Piper MD [address] [place] [address] PCP - General Internal Medicine 05/03/18 documented as of this encounter
--- OUTSIDE RECORDS SUMMARY | 2023-09-28 01:27 | External Medical Summary | Summary of Care ---
Author Name Unknown Organization [facility] Address [address] [place] [address] Phone [phone] Care Team Providers Care Raisin Separator Operator Name Role Phone Yamini Piper MD Primary Care Provider [phone] Encounter Details Date Type Department Care Team (Latest Contact Info) Description 09/04/2023 2:05 PM EDT - 09/04/2023 2:09 PM EDT Hospital Encounter Radiology Film File [address] [place] [address] Discharge Disposition: Home - Self [...] DELETE [facility] DETECT Study: Project # [id number], Measurer: Eric Magana, PhD. SUMMARY: Goal: Establish test [...] contact study staff at ; after hours Measurer via the [facility] hospital bullard machine operator . Please contact study team before resolving/deleting from patients problem list. Study phone number: [phone]. Diagnosis changed due to Research Module. Go to Snapshot for study details. Encounter for examination fo r normal comparison and control in clinical research program 07/26/2017 10/28/2021 Overview: DO NOT DELETE - [facility] Study: Project # [id number], Measurer: Jordan Umana, MS, MPH. SUMMARY: Goal: Establish [...] contact study staff at ; after hours Measurer via the [facility] bullard machine operator . - Please contact study team before resolving/deleting from patients problem list. Study phone number: [phone]. Diagnosis changed due to Research Module. Go [...] 09/18/2023 9:00 AM EDT Office Visit Orthopaedics, [place] [address] [place] [address] Ranjeet Chowdhury Jr., MD [address] [place] [address] 12/22/2023 2:00 PM EDT Office Visit General Internal Medicine [facility] 200 [facility] [place] [address] Yamini Piper MD [address] [facility] [place] [address] 02/01/2024 10:00 AM EST Cardiac Studies Cardiology, [facility] 132 [place] [address] [facility] [address] Scheduled Procedures Name Priority Associated Diagnoses Date/Ti [...] this encounter Medical Devices Implanted Type Area Buyer Assistant Device Identifier Shelf Expiration Date Model / Serial / Lot Plate Lcp Pilon 3.5 7h 240.082 - [id number] Implanted:Qty: 1 on 09/05/2023 by Ranjeet Chowdhury Jr., MD at OR [facility] Right: Pelvis SYNTHES 240.082 / / Hip Head V40 Taper C C 222 0 - [id number] Implanted:Qty: 1 on 09/05/2023 by Ranjeet Chowdhury Jr., MD at OR [facility] Right: Hip TONI : ORTHOPAEDICS 07/09/2028 6260-4-122 / / [id number] Screw Selftap 3.5x36 204.836 - [id number] Implanted:Qty: 2 on 09/05/2023 by Ranjeet Chowdhury Jr., MD at OR [facility] Right: Pelvis SYNTHES 204.836 / / Screw Selftap 3.5x20 204.820 - [id number] Implanted:Qty: 2 on 09/05/2023 by Ranjeet Chowdhury Jr., MD at OR [facility] Right: Pelvis SYNTHES 204.820 / / Implant Hip Acetab Shell 50d - [id number] Implanted:Qty: 1 on 09/05/2023 by Ranjeet Chowdhury Jr., MD at OR [facility] Right: Hip TONI : ORTHOPAEDICS 11/28/2026 709-04-50D / / [id number] Screw Low Profile 6.4qvh93lx - [id number] Implanted:Qty: 1 on 09/05/2023 by Ranjeet Chowdhuyr Jr., MD at OR [facility] Right: Hip TONI : ORTHOPAEDICS 04/05/2028 6665-7186 / / GDBJ Screw Low Profile 6.4hro45as - [id number] Implanted:Qty: 1 on 09/05/2023 by Ranjeet Chowdhury Jr., MD at OR [facility] Right: Hip TONI : ORTHOPAEDICS 04/03/2028 4603-4300 / / GBCA Hip Liner Mdm Cocr 38 D - [id number] Implanted:Qty: 1 on 09/05/2023 by Ranjeet Chowdhury Jr., MD at OR [facility] Right: Hip TONI : ORTHOPAEDICS 07/24/2028 626-00-38D / / [id number] Implant Stem Hip Colr Std 2 - [id number] Implanted:Qty: 1 on 09/05/2023 by Ranjeet Chowdhury Jr., MD at OR [facility] Right: Hip TONI : ORTHOPAEDICS 03/13/2027 1496-1256 / / [id number] Mdm X3 Inser Liner 22x44 - [id number] Implanted:Qty: 1 on 09/05/2023 by Ranjeet Chowdhury Jr., MD at OR [facility] Right: Hip TONI : ORTHOPAEDICS 09/15/2027 7236-2-244 / / [id number] documented as of this encounter Procedures Procedure Name Priority Date/Time Associated Diagnosis Comments RADIOLOGY EXAM - GENERAL RAD (IMAGES ONLY,NO REPORT) Routine 09/04/2023 2:05 PM EDT documented in this encounter Results * RADIOLOGY EXAM - GENERAL RAD (IMAGES ONLY,NO REPORT) (09/04/2023 2:05 PM EDT) 09/04/2023 2:03 PM EDT Narrative Scheduling, Silent - 09/08/2023 9:22 AM EDT This is an imaging study not interpreted or resulted by a [facility] or [employer] contracted radiologist. Tristen [place] Jr., MD RADIOLOG [...] Agen t (per Health Care Power of Talent Acquisition Consultant document) Care Teams Raisin Separator Operator Relationship Specialty Start Date End Date Yamini Piper MD 200 [place] [address] PCP - General Internal Medicine 05/03/18 documented as of this encounter
[2023-09-28 01:28] LABS: Hematocrit (blood only) 20.5 % (37.0-47.0); Hemoglobin 6.8 g/dl (12.0-16.0); Mean Corpuscular Hemoglobin 31.1 pg (25.0-34.0); Mean Corpuscular Hgb Conc 33.2 g/dL (32.0-36.0); Mean Corpuscular Volume 93.6 fL (80.0-100.0); Mean Platelet Volume 10.1 fL (9.4-12.4); Platelet Count 170 K/uL (130-400); RDW Coefficient of Variation 19.1 % (11.5-14.5); RDW Standard Deviation 63.6 fL (36.4-46.3); Red Blood Count 2.19 M/uL (4.20-5.40); White Blood Count 8.06 K/ul (4.8-10.8)
--- OUTSIDE RECORDS SUMMARY | 2023-09-28 01:28 | External Medical Summary | Summary of Care ---
Author Name Unknown Organization [facility] Address [address] [place] [address] Phone [phone] Care Team Providers Care Automotive Design Drafter Name Role Phone Yamini Piper MD Primary Care Provider [phone] Encounter Details Date Type Department Care Team (Late st Contact Info) Description 09/04/2023 Orders Only Unspecified Department Tristen Ferguson Jr., MD [address] [place] [address] Allergies Active Allergy Reactions Criticality [...] 07/26/2017 09/30/2019 Overview: DO NOT DELETE [facility] DETECT Study: Project # [id number], Shank Archer: Eric Magana, PhD. SUMMARY: Goal: Establish test [...] contact study staff at ; after hours Shank Archer via the [facility] strap cutting machine operator . Please contact study team before resolving/deleting from patients problem list. Study phone number: [phone]. Diagnosis changed due to Research Module. Go to Snapshot for study details. Encounter for examination fo r normal comparison and control in clinical research program 07/26/2017 10/28/2021 Overview: DO NOT DELETE - [facility] Study: Project # [id number], Shank Archer: Jordan Umana, MS, MPH. SUMMARY: Goal: Establish [...] contact study staff at ; after hours Shank Archer via the [facility] strap cutting machine operator . - Please contact study team before resolving/deleting from patients problem list. Study phone number: [phone]. Diagnosis changed due to Research Module. Go [...] 09/18/2023 9:00 AM EDT Office Visit Orthopaedics, [place] [address] [place] [address] Ranjeet Chowdhury Jr., MD [address] [place] [address] 12/22/2023 2:00 PM EDT Office Visit General Internal Medicine [facility] [address] [facility] [place] [address] Yamini Piper MD [address] [facility] [place] [address] 02/01/2024 10:00 AM EST Cardiac Studies Cardiology, [facility] [address] [place] [address] [facility] [address] Scheduled Procedures Name Priority Associated Diagnoses Date/Ti [...] this encounter Medical Devices Implanted Type Area Injection Molding Operator Device Identifier Shelf Expiration Date Model / Serial / Lot Plate Lcp Pilon 3.5 7h 240.082 - [id number] Implanted:Qty: 1 on 09/05/2023 by Ranjeet Chowdhury Jr., MD [place] [facility] Right: Pelvis SYNTHES 240.082 / / Hip Head V40 Taper C C 222 0 - [id number] Implanted:Qty: 1 on 09/05/2023 by Ranjeet Chowdhury Jr., [place] [facility] [place]: Hip TONI : ORTHOPAEDICS 07/09/2028 6260-4-122 / / [id number] Screw Selftap 3.5x36 204.836 - [id number] Implanted:Qty: 2 on 09/05/2023 by Ranjeet Chowdhury Jr., MD [place] [facility] Right: Pelvis SYNTHES 204.836 / / Screw Selftap 3.5x20 204.820 - [id number] Implanted:Qty: 2 on 09/05/2023 by Ranjeet Chowdhury Jr., MD [place] [facility] Right: Pelvis SYNTHES 204.820 / / Implant Hip Acetab Shell 50d - [id number] Implanted:Qty: 1 on 09/05/2023 by Ranjeet Chowdhury Jr., [place] [facility] [place]: Hip TONI : ORTHOPAEDICS 11/28/2026 709-04-50D / / [id number] Screw Low Profile 6.0nsr42ql - [id number] Implanted:Qty: 1 on 09/05/2023 by Ranjeet Chowdhury Jr., [place] [facility] Right: Hip TONI : ORTHOPAEDICS 04/05/2028 6961-6700 / / GDBJ Screw Low Profile 6.3ttl60fn - [id number] Implanted:Qty: 1 on 09/05/2023 by Ranjeet Chowdhury Jr., [place] [facility] Right: Hip TONI : ORTHOPAEDICS 04/03/2028 1977-9276 / / GBCA Hip Liner Mdm Cocr 38 D - [id number] Implanted:Qty: 1 on 09/05/2023 by Ranjeet Chowdhury Jr., [place] [facility] Right: Hip TONI : ORTHOPAEDICS 07/24/2028 626-00-38D / / [id number] Implant Stem Hip Colr Std 2 - [id number] Implanted:Qty: 1 on 09/05/2023 by Ranjeet Chowdhury Jr., [place] [facility] Right: Hip TONI : ORTHOPAEDICS 03/13/2027 9618-0496 / / [id number] Mdm X3 Inser Liner 22x44 - [id number] Implanted:Qty: 1 on 09/05/2023 by Ranjeet Chowdhury Jr., [place] [facility] [place]: Hip TONI : ORTHOPAEDICS 09/15/2027 7236-2-244 / / [id number] documented as of this encounter Procedures Procedure [...] interpreted or resulted by a [facility] or [employer] contracted radiologist. Tristen Ferguson Jr., MD RADIOLOG [...] Agen t (per Health Care Power of Stitching Department Supervisor document) Care Teams Automotive Design Drafter Relationship Specialty Start Date End Date Yamini Piper MD [address] [facility] [place] [address] PCP - General Internal Medicine 05/03/18 documented as of this encounter
--- OUTSIDE RECORDS SUMMARY | 2023-09-28 01:28 | External Medical Summary ---
Author Name Unknown Address Unknown Organization K01:LABORATORY [facility] [place] - [address] [facility] [address] Laboratory Report Ordering Provider Test Date Status TAHIRISAMAR LOUJaziel 09/07/2023 04:48:00 Final Observation Date Value Abnormality Reference (Units ) Status BUN 09/07/2023 04:48:00 19 6-20 (mg/dL) Final Creatinine 09/07/2023 04:48:00 0.7 0.5-1.0 (mg/dL) Final Glomerular filtration rate/1.73 sq M.predicted [Volume Rate/Area] in Serum, Plasma or Blood by Creatinine-based formula (CKD-EPI) 09/07/2023 04:48:00 89 >=60 (mL/min) Final eGFR is calculated based on the CKD-EPI 2020 equation Sodium 09/07/2023 04:48:00 136 135-146 (m mol/L) Final Potassium 09/07/2023 04:48:00 3.9 3.5-5.1 (m mol/L) Final Cl 09/07/2023 04:48:00 104 98-107 (mm ol/L) Final CO2 09/07/2023 04:48:00 21 Below low normal 22- 32 (mmol/L) Final Anion gap 09/07/2023 04:48:00 11 7-15 (mmol /L) Final Glucose 09/07/2023 04:48:00 142 Above high normal 70 -120 (mg/dL) Final Calcium 09/07/2023 04:48:00 7.8 Below low normal 8.4 -10.2 (mg/dL) Final Performing Location LABORATORY [facility] - [address] [place] [address]
--- OUTSIDE RECORDS SUMMARY | 2023-09-28 01:28 | External Medical Summary ---
Author Name Unknown Address Unknown Organization K01:LABORATORY [facility] [address] [place] [address] Laboratory Report Ordering Provider Test Date Status CANDIDA HARO 09/08/2023 04:24:00 Final Observation Date Value Abnormality Reference (Units ) Status Calcium.ionized [Moles/volume] in Serum or Plasma by Ion-selective membrane electrode (ISE) 09/08/2023 04:24:00 1.15 1.13-1.32 (mmol/L) Final This test was developed and its performance characteristics dtermined by [employer]. It has not been cleared or approved by the [place] Food and Drug Administration Performing Location LABORATORY [place] [address] [place] [address]
--- OUTSIDE RECORDS SUMMARY | 2023-09-28 01:28 | External Medical Summary ---
Author Name Unknown Address Unknown Organization K01:[facility] [place] [address] [address] Laboratory Report Ordering Provider Test Date Status NAIMAMARYANANYA 09/07/2023 17:20:00 Final Observation Date Value Abnormality Reference (Units ) Status WBC, Total 09/07/2023 17:20:00 10.16 4.00-10.80 (K/uL) Final RBC 09/07/2023 17:20:00 3.08 3.85-5.15 (M/uL) Final Hemoglobin 09/07/2023 17:20:00 9.4 Below low normal 12.0-15.3 (g/dL) Final HCT 09/07/2023 17:20:00 27.6 Below low normal 36.0-45.2 (%) Final MCV 09/07/2023 17:20:00 89.6 81.5-97.5 (fL) Final MCH 09/07/2023 17:20:00 30.5 27.0-34.0 (pg) Final MCHC 09/07/2023 17:20:00 34.1 32.0-36.0 (g/dL) Final RDW 09/07/2023 17:20:00 14.9 11.5-15.5 (%) Final Platelets 09/07/2023 17:20:00 73 Below low normal 140-400 (K/uL) Final MPV 09/07/2023 17:20:00 11.0 6.6-11.1 (fL) Final Nucleated erythrocytes/100 leukocytes [Ratio] in Blood by Automated count 09/07/2023 17:20:00 0 <=0 (/100 WBCs) Final Performing Location [facility] [place] [address] [place] [address]
--- OUTSIDE RECORDS SUMMARY | 2023-09-28 01:28 | External Medical Summary ---
Author Name Unknown Address Unknown Organization K01:[facility] [place] [address] [facility] [address] Laboratory Report Ordering Provider Test Date Status CANDIDA HARO 09/08/2023 04:24:00 Final Observation Date Value Abnormality Reference (Units ) Status Phosphate 09/08/2023 04:24:00 1.9 Below low normal 2.5 -4.8 (mg/dL) Final Performing Location LAB[facility] - [address] [facility] [address]
--- OUTSIDE RECORDS SUMMARY | 2023-09-28 01:28 | External Medical Summary ---
Author Name Unknown Address Unknown Organization K01[place] [place] [address] [facility] [address] Laboratory Report Ordering Provider Test Date Status ANANYA GIORDANO 09/08/2023 04:24:00 Final Observation Date Value Abnormality Reference (Units ) Status WBC, Total 09/08/2023 04:24:00 8.26 4.00-10.80 (K/uL) Final RBC 09/08/2023 04:24:00 2.75 3.85-5.15 (M/uL) Final Hemoglobin 09/08/2023 04:24:00 8.4 Below low normal 12.0-15.3 (g/dL) Final HCT 09/08/2023 04:24:00 25.5 Below low normal 36.0-45.2 (%) Final MCV 09/08/2023 04:24:00 92.7 81.5-97.5 (fL) Final MCH 09/08/2023 04:24:00 30.5 27.0-34.0 (pg) Final MCHC 09/08/2023 04:24:00 32.9 32.0-36.0 (g/dL) Final RDW 09/08/2023 04:24:00 15.4 11.5-15.5 (%) Final Platelets 09/08/2023 04:24:00 75 Below low normal 140-400 (K/uL) Final MPV 09/08/2023 04:24:00 11.1 6.6-11.1 (fL) Final Nucleated erythrocytes/100 leukocytes [Ratio] in Blood by Automated count 09/08/2023 04:24:00 0 <=0 (/100 WBCs) Final Performing Location [facility] [place] [address] [place] [address]
--- OUTSIDE RECORDS SUMMARY | 2023-09-28 01:28 | External Medical Summary | Summary of Care ---
Author Name Unknown Organization [facility] Address [address] [place] [address] Phone [phone] Care Team Providers Care Qual Research Manager Name Role Phone Yamini Piper MD Primary Care Provider Encounter Details Date Type Department Care Team (Late st Contact Info) Description 09/04/2023 Orders Only Unspecified Department Tristen Ferguson Jr., MD [address] [place] [address] Allergies Active Allergy Reactions Criticality [...] program 07/26/2017 09/30/2019 Overview: DO NOT DELETE [facility] DETECT Study: Project # [id number], Hotel Security Officer: Eric Magana, PhD. SUMMARY: Goal: Establish test [...] contact study staff at ; after hours Hotel Security Officer via the [facility] [place] [facility] slabbing machine operator . Please contact study team before resolving/deleting from patients problem list. Study phone number: [phone]. Diagnosis changed due to Research Module. Go to Snapshot for study details. Encounter for examination fo r normal comparison and control in clinical research program 07/26/2017 10/28/2021 Overview: DO NOT DELETE - [facility] Study: Project # [id number], Hotel Security Officer: Jordan Umana, MS, MPH. SUMMARY: Goal: Establish [...] contact study staff at ; after hours Hotel Security Officer via the [facility] slabbing machine operator . - Please contact study team before resolving/deleting from patients problem list. Study phone number: [phone]. Diagnosis changed due to Research Module. Go [...] 09/18/2023 9:00 AM EDT Office Visit Orthopaedics, [place] [address] [place] [address] Ranjeet Chowdhury Jr., MD [address] [place] [address] 12/22/2023 2:00 PM EDT Office Visit General Internal Medicine [facility] [address] [facility] [place] [address] Yamini Piper MD [address] [facility] [place] [address] 02/01/2024 10:00 AM EST Cardiac Studies Cardiology, [facility] [address] [place] [address] [facility] [address] [facility] [address] Scheduled Procedures Name Priority Associated Diagnoses Date/Ti [...] this encounter Medical Devices Implanted Type Area Slate Worker Device Identifier Shelf Expiration Date Model / Serial / Lot Plate Lcp Pilon 3.5 7h 240.082 - [id number] Implanted:Qty: 1 on 09/05/2023 by Ranjeet Chowdhury Jr., MD at [place] [facility] [place] Right: Pelvis SYNTHES 240.082 / / Hip Head V40 Taper C C 222 0 - [id number] Implanted:Qty: 1 on 09/05/2023 by Ranjeet Chowdhury Jr., MD at [place] [facility] [place] Right: Hip TONI : ORTHOPAEDICS 07/09/2028 6260-4-122 / / [id number] Screw Selftap 3.5x36 204.836 - [id number] Implanted:Qty: 2 on 09/05/2023 by Ranjeet Chowdhury Jr., MD at [place] [facility] [place] Right: Pelvis SYNTHES 204.836 / / Screw Selftap 3.5x20 204.820 - [id number] Implanted:Qty: 2 on 09/05/2023 by Ranjeet Chowdhury Jr., MD at [place] [facility] [place] Right: Pelvis SYNTHES 204.820 / / Implant Hip Acetab Shell 50d - [id number] Implanted:Qty: 1 on 09/05/2023 by Ranjeet Chowdhury Jr., MD at [place] [facility] [place] Right: Hip TONI : ORTHOPAEDICS 11/28/2026 709-04-50D / / [id number] Screw Low Profile 6.0naw68oj - [id number] Implanted:Qty: 1 on 09/05/2023 by Ranjeet Chowdhury Jr., MD at [place] [facility] [place] Right: Hip TONI : ORTHOPAEDICS 04/05/2028 0505-2468 / / GDBJ Screw Low Profile 6.4rqg91mb - [id number] Implanted:Qty: 1 on 09/05/2023 by Ranjeet Chowdhury Jr., MD at [place] [facility] [place] Right: Hip TONI : ORTHOPAEDICS 04/03/2028 5299-1706 / / GBCA Hip Liner Mdm Cocr 38 D - [id number] Implanted:Qty: 1 on 09/05/2023 by Ranjeet Chowdhury Jr., MD at [place] [facility] [place] Right: Hip TONI : ORTHOPAEDICS 07/24/2028 626-00-38D / / [id number] Implant Stem Hip Colr Std 2 - [id number] Implanted:Qty: 1 on 09/05/2023 by Ranjeet Chowdhury Jr., MD at [place] [facility] [place] Right: Hip TONI : ORTHOPAEDICS 03/13/2027 4460-5716 / / [id number] Mdm X3 Inser Liner 22x44 - [id number] Implanted:Qty: 1 on 09/05/2023 by Ranjeet Chowdhury Jr., MD at [place] [facility] [place] Right: Hip TONI : ORTHOPAEDICS 09/15/2027 7236-2-244 / / [id number] documented as of this encounter Procedures Procedure [...] interpreted or resulted by a [facility] or [employer] contracted radiologist. Tristen Ferguson Jr., MD RAD [...] on File Name Relationship Healthcare Agent [facility] Erika Brandt Adult Child Health Care Agen t (per Health Care Power of Diesel Engine Pipe Fitter document) Care Teams Qual Research Manager Relationship Specialty Start Date End Date Yamini Piper MD [address] [place] [address] PCP - General Internal Medicine 05/03/18 documented as of this encounter
--- OUTSIDE RECORDS SUMMARY | 2023-09-28 01:28 | External Medical Summary ---
Author Name Unknown Address Unknown Organization K01:LABORATORY [facility] - [address] [facility] [address] Laboratory Report Ordering Provider Test Date Status CANDIDA HARO 09/07/2023 04:48:00 Final Observation Date Value Abnormality Reference (Units ) Status Magnesium 09/07/2023 04:48:00 2.2 1.5-2.6 (m g/dL) Final Performing Location LAB[facility] - [address] [facility] [address]
--- OUTSIDE RECORDS SUMMARY | 2023-09-28 01:28 | External Medical Summary ---
Author Name Unknown Address Unknown Organization K01:LABORATORY [facility] - [address] [facility] [address] [facility] [address] Laboratory Report Ordering Provider Test Date Status CANDIDA HARO 09/08/2023 04:24:00 Final Observation Date Value Abnormality Reference (Units ) Status Magnesium 09/08/2023 04:24:00 2.2 1.5-2.6 (m g/dL) Final Performing Location LAB[facility] - [address] [facility] [address]
--- OUTSIDE RECORDS SUMMARY | 2023-09-28 01:28 | External Medical Summary ---
Author Name Unknown Address Unknown Organization K01:LABORATORY [facility] [place] - [address] [facility] [id number] Laboratory Report Ordering Provider Test Date Status CANDIDA HARO 09/07/2023 04:48:00 Final Observation Date Value Abnormality Reference (Units ) Status Phosphate 09/07/2023 04:48:00 2.0 Below low normal 2.5 -4.8 (mg/dL) Final Performing Location LABORATORY [facility] - [address] [facility] [id number]
--- OUTSIDE RECORDS SUMMARY | 2023-09-28 01:28 | External Medical Summary | Summary of Care ---
Author Name Unknown Organization [facility] Address [address] [place] [address] Phone [phone] Care Team Providers Care Yeast Stacker Name Role Phone Yamini Piper MD Primary Care Provider [phone] Encounter Details Date Type Department Care Team (Late st Contact Info) Description 09/04/2023 Orders Only Unspecified Department Tristen Ferguson Jr., MD [address] [place] [address] Allergies Active Allergy Reactions Criticality [...] DELETE [facility] DETECT Study: Project # [id number], Software Implementation Specialist: Eric Magana, PhD. SUMMARY: Goal: Establish [...] contact study staff at ; after hours Software Implementation Specialist via the [facility] hospital box press operator . Please contact study team before resolving/deleting from patients problem list. Study phone number: [phone]. Diagnosis changed due to Research Module. Go to Snapshot for study details. Encounter for examination fo r normal comparison and control in clinical research program 07/26/2017 10/28/2021 Overview: DO NOT DELETE - [facility] Study: Project # [id number], Software Implementation Specialist: Jordan Umana, MS, MPH. SUMMARY: Goal: [...] contact study staff at ; after hours Software Implementation Specialist via the [facility] box press operator . - Please contact study team before resolving/deleting from patients problem list. Study phone number: [phone]. Diagnosis changed due to Research Module. Go [...] 09/18/2023 9:00 AM EDT Office Visit Orthopaedics, [place] [address] [place] [address] Ranjeet Chowdhury Jr., MD [address] [place] [address] 12/22/2023 2:00 PM EDT Office Visit General Internal Medicine [facility] [address] [facility] [place] [address] Yamini Piper MD [address] [facility] [place] [address] 02/01/2024 10:00 AM EST Cardiac Studies Cardiology, [facility] [address] [place] [address] [facility] [address] [facility] [address] Scheduled Procedures Name Priority Associated Diagnoses Date/Ti [...] this encounter Medical Devices Implanted Type Area Manufacturer Representative Device Identifier Shelf Expiration Date Model / Serial / Lot Plate Lcp Pilon 3.5 7h 240.082 - [id number] Implanted:Qty: 1 on 09/05/2023 by Ranjeet Chowdhury Jr., MD at [place] [facility] Right: Pelvis SYNTHES 240.082 / / Hip Head V40 Taper C C 222 0 - [id number] Implanted:Qty: 1 on 09/05/2023 by Ranjeet Chowdhury Jr., MD at [place] [facility] Right: Hip TONI : ORTHOPAEDICS 07/09/2028 6260-4-122 / / [id number] Screw Selftap 3.5x36 204.836 - [id number] Implanted:Qty: 2 on 09/05/2023 by Ranjeet Chowdhury Jr., MD at [place] [facility] Right: Pelvis SYNTHES 204.836 / / Screw Selftap 3.5x20 204.820 - [id number] Implanted:Qty: 2 on 09/05/2023 by Ranjeet Chowdhury Jr., MD at [place] [facility] Right: Pelvis SYNTHES 204.820 / / Implant Hip Acetab Shell 50d - [id number] Implanted:Qty: 1 on 09/05/2023 by Ranjeet Chowdhury Jr., MD at [place] [facility] Right: Hip TONI : ORTHOPAEDICS 11/28/2026 709-04-50D / / [id number] Screw Low Profile 6.2srq08xl - [id number] Implanted:Qty: 1 on 09/05/2023 by Ranjeet Chowdhury Jr., MD at [place] [facility] Right: Hip TONI : ORTHOPAEDICS 04/05/2028 3026-0011 / / GDBJ Screw Low Profile 6.3soc13pv - [id number] Implanted:Qty: 1 on 09/05/2023 by Ranjeet Chowdhury Jr., MD at [place] [facility] Right: Hip TONI : ORTHOPAEDICS 04/03/2028 3573-7924 / / GBCA Hip Liner Mdm Cocr 38 D - [id number] Implanted:Qty: 1 on 09/05/2023 by Ranjeet Chowdhury Jr., MD at [place] [facility] Right: Hip TONI : ORTHOPAEDICS 07/24/2028 626-00-38D / / [id number] Implant Stem Hip Colr Std 2 - [id number] Implanted:Qty: 1 on 09/05/2023 by Ranjeet Chowdhury Jr., MD at [place] [facility] Right: Hip TONI : ORTHOPAEDICS 03/13/2027 2856-4171 / / [id number] Mdm X3 Inser Liner 22x44 - [id number] Implanted:Qty: 1 on 09/05/2023 by Ranjeet Chowdhury Jr., MD at [place] [facility] Right: Hip TONI : ORTHOPAEDICS 09/15/2027 7236-2-244 / / [id number] documented as of this encounter Procedures Procedure [...] interpreted or resulted by a [facility] or [employer] contracted radiologist. Tristen Ferguson Jr., MD RADIOLOG [...] Agen t (per Health Care Power of Dairy Tester document) Care Teams Yeast Stacker Relationship Specialty Start Date End Date Yamini Piper MD [address] [place] [address] PCP - General Internal Medicine 05/03/18 documented as of this encounter
--- OUTSIDE RECORDS SUMMARY | 2023-09-28 01:29 | External Medical Summary ---
Author Name Unknown Address Unknown Organization K01:LABORATORY [place] [address] [facility] [address] Laboratory Report Ordering Provider Test Date Status AMY BURCH 09/05/2023 04:50:41 Final Cutoff Concentrations:
Drug Level
Amphetamines 500 ng/mL
Benzodiazepines 100 ng/mL
Cannabinoids 50 ng/mL
Cocaine Metabolite 150 ng/mL
Fentanyl 1 ng/mL
Hydrocodone / Hydromorphone 300 ng/mL
Methadone Metabolite 100 ng/mL
Morphine / Codeine 300 ng/mL
Oxycodone / Oxymorphone 100 ng/mL

Screening results are presumptive and can only be used for medical purposes. Positive screening results are reflexed to confirmatory testing. Observation Date Value Abnormality Reference (Units ) Status Amphetamines, Urine screen 09/05/2023 04:50:41 Negative Negative Final Benzodiazepines, Urine screen 09/05/2023 04:50:41 Negative Negative Final Cannabinoids, Urine screen 09/05/2023 04:50:41 Negative Negative Final Cocaine Metabolite, Urine screen 09/05/2023 04:50:41 Negative Negative Final fentaNYL [Presence] in Urine by Screen method 09/05/2023 04:50:41 Negative Negative Final HYDROcodone [Presence] in Urine by Screen method 09/05/2023 04:50:41 Negative Negative Final 0-Fninmjmvnu-2,5-Dimeth yl-3,3-Diphenylpyrrolid ine (EDDP) [Presence] in Urine 09/05/2023 04:50:41 Negative Negative Final Opiates, Urine screen 09/05/2023 04:50:41 Positive Abnormal Negative Final oxyCODONE [Presence] in Urine by Screen method 09/05/2023 04:50:41 Negative Negative Final Performing Location LABORATORY [facility] - [address] [facility] [address]
--- OUTSIDE RECORDS SUMMARY | 2023-09-28 01:29 | External Medical Summary ---
Author Name Unknown Address Unknown Organization : Laboratory Report Ordering Provider Test Date Status ARACELI SINGH 09/05/2023 20:43:22 Final Observation Date Value Abnormality Reference (Units ) Status Blood draw [PhenX] 09/05/2023 20:43:22 Venous Final pH, POC (i-STAT) 09/05/2023 20:43:22 7.190 Below lower panic limits 7.350-7.450 Final PCO2 POC (i-STAT) 09/05/2023 20:43:22 39.9 35.0-45.0 (mm Hg) Final PO2 POC (i-STAT) 09/05/2023 20:43:22 55 Below low normal 75-100 (mm Hg) Final Base excess standard in Arterial blood by calculation 09/05/2023 20:43:22 -12 Below low normal -2-2 (mmol/L) Final Bicarbonate, Venous, POC (i-STAT) 09/05/2023 20:43:22 15.2 Below low normal 23.0-31.0 (mmol/L) Final O2 Sat, calculated POC (i-STAT) 09/05/2023 20:43:22 80.0 Below low normal 94.0-98.0 (%) Final Glucose, whole blood 09/05/2023 20:43:22 122 Above high normal 70-120 (mg/dL) Final Potassium, Whole Blood 09/05/2023 20:43:22 4.0 3.5-5.1 (mmol/L) Final Sodium, Whole Blood 09/05/2023 20:43:22 139 135-146 (mmol/L) Final Calcium, Ionized, Whole Blood 09/05/2023 20:43:22 1.22 1.13-1.32 (mmol/L) Final Hemoglobin POC (i-STAT) 09/05/2023 20:43:22 8.2 Below low normal 12.0-15.3 (g/dL) Final HCT 09/05/2023 20:43:22 24 Below low normal 36-45 (%) Final Performing Location
--- OUTSIDE RECORDS SUMMARY | 2023-09-28 01:29 | External Medical Summary ---
Author Name Unknown Address Unknown Organization K01:LABORATORY [facility] - [address] [place] [address] Laboratory Report Ordering Provider Test Date Status MARCINREYES 09/05/2023 02:55:00 Final Observation Date Value Abnormality Reference (Units ) Status ABO 09/05/2023 02:55:00 O Final RH 09/05/2023 02:55:00 Positive Final RED BLOOD CELL ANTIBODY SCREEN 09/05/2023 02:55:00 Negative Final SPECIMEN EXPIRATION DATE 09/05/2023 02:55:00 09/08/2023 23:59 Final Performing Location LABORATORY [facility] - [address] [place] [address]
--- OUTSIDE RECORDS SUMMARY | 2023-09-28 01:29 | External Medical Summary ---
Author Name Unknown Address Unknown Organization : Laboratory Report Ordering Provider Test Date Status ARACELI SINGH 09/05/2023 17:18:30 Final Observation Date Value Abnormality Reference (Units ) Status Glucose Point of Care 09/05/2023 17:18:30 77 70-120 (mg/dL) Final Performing Location
--- OUTSIDE RECORDS SUMMARY | 2023-09-28 01:29 | External Medical Summary ---
Author Name Unknown Address Unknown Organization K01:[place] [place] [address] [place] [address] Laboratory Report Ordering Provider Test Date Status JUDY MANUEL 09/05/2023 22:32:00 Final Observation Date Value Abnormality Reference (Units ) Status WBC, Total 09/05/2023 22:32:00 13.19 Above high normal 4.00-10.80 (K/uL) Final RBC 09/05/2023 22:32:00 3.35 3.85-5.15 (M/uL) Final Hemoglobin 09/05/2023 22:32:00 10.6 Below low normal 12.0-15.3 (g/dL) Final HCT 09/05/2023 22:32:00 30.2 Below low normal 36.0-45.2 (%) Final MCV 09/05/2023 22:32:00 90.1 81.5-97.5 (fL) Final MCH 09/05/2023 22:32:00 31.6 27.0-34.0 (pg) Final MCHC 09/05/2023 22:32:00 35.1 32.0-36.0 (g/dL) Final RDW 09/05/2023 22:32:00 13.7 11.5-15.5 (%) Final Platelets 09/05/2023 22:32:00 77 Below low normal 140-400 (K/uL) Final MPV 09/05/2023 22:32:00 10.7 6.6-11.1 (fL) Final Nucleated erythrocytes/100 leukocytes [Ratio] in Blood by Automated count 09/05/2023 22:32:00 0 <=0 (/100 WBCs) Final Performing Location [facility] [place] [address] [place] [address]
--- OUTSIDE RECORDS SUMMARY | 2023-09-28 01:29 | External Medical Summary ---
Author Name Unknown Address Unknown Organization K01:LABORATORY [facility] [place] [address] [facility] [address] Laboratory Report Ordering Provider Test Date Status TAHIR,CANDIDA 09/06/2023 04:28:00 Final Observation Date Value Abnormality Reference (Units ) Status BUN 09/06/2023 04:28:00 16 6-20 (mg/dL) Final Creatinine 09/06/2023 04:28:00 0.7 0.5-1.0 (mg/dL) Final Glomerular filtration rate/1.73 sq M.predicted [Volume Rate/Area] in Serum, Plasma or Blood by Creatinine-based formula (CKD-EPI) 09/06/2023 04:28:00 90 >=60 (mL/min) Final eGFR is calculated based on the CKD-EPI 2020 equation Sodium 09/06/2023 04:28:00 138 135-146 (m mol/L) Final Potassium 09/06/2023 04:28:00 4.0 3.5-5.1 (m mol/L) Final Cl 09/06/2023 04:28:00 107 98-107 (mm ol/L) Final CO2 09/06/2023 04:28:00 16 Below low normal 22- 32 (mmol/L) Final Anion gap 09/06/2023 04:28:00 15 7-15 (mmol /L) Final Glucose 09/06/2023 04:28:00 153 Above high normal 70 -120 (mg/dL) Final Calcium 09/06/2023 04:28:00 7.8 Below low normal 8.4 -10.2 (mg/dL) Final Performing Location LABORATORY [facility] [place] - [address] [place] [address]
--- OUTSIDE RECORDS SUMMARY | 2023-09-28 01:29 | External Medical Summary ---
Author Name Unknown Address Unknown Organization K01:[facility]ATORY [facility] [place] - [facility] [address] [facility] [address] [facility] [address] Laboratory Report Ordering Provider Test Date Status JUDY MANUEL 09/06/2023 13:46:00 Final Observation Date Value Abnormality Reference (Units ) Status WBC, Total 09/06/2023 13:46:00 11.09 Above high normal 4.00-10.80 (K/uL) Final RBC 09/06/2023 13:46:00 2.85 3.85-5.15 (M/uL) Final Hemoglobin 09/06/2023 13:46:00 8.7 Below low normal 12.0-15.3 (g/dL) Final HCT 09/06/2023 13:46:00 25.7 Below low normal 36.0-45.2 (%) Final MCV 09/06/2023 13:46:00 90.2 81.5-97.5 (fL) Final MCH 09/06/2023 13:46:00 30.5 27.0-34.0 (pg) Final MCHC 09/06/2023 13:46:00 33.9 32.0-36.0 (g/dL) Final RDW 09/06/2023 13:46:00 14.6 11.5-15.5 (%) Final Platelets 09/06/2023 13:46:00 82 Below low normal 140-400 (K/uL) Final MPV 09/06/2023 13:46:00 10.7 6.6-11.1 (fL) Final Nucleated erythrocytes/100 leukocytes [Ratio] in Blood by Automated count 09/06/2023 13:46:00 0 <=0 (/100 WBCs) Final Performing Location LABORATORY [facility] [place] - [address] [place] [address]
--- OUTSIDE RECORDS SUMMARY | 2023-09-28 01:29 | External Medical Summary ---
Author Name Unknown Address Unknown Organization K01:LABORATORY [facility] [address] [place] [address] Laboratory Report Ordering Provider Test Date Status CANDIDA HARO 09/06/2023 04:28:00 Final Observation Date Value Abnormality Reference (Units ) Status Calcium.ionized [Moles/volume] in Serum or Plasma by Ion-selective membrane electrode (ISE) 09/06/2023 04:28:00 1.13 1.13-1.32 (mmol/L) Final This test was developed and its performance characteristics dtermined by [employer]. It has not been cleared or approved by the [place] Food and Drug Administration Performing Location LABORATORY [place] [address] [place] [id number]
--- OUTSIDE RECORDS SUMMARY | 2023-09-28 01:29 | External Medical Summary ---
Author Name Unknown Address Unknown Organization K01:LAB[facility]ATORY [facility] [place] - [facility] [address] [facility] [address] Laboratory Report Ordering Provider Test Date Status AMY BURCH 09/05/2023 04:50:41 Final Observation Date Value Abnormality Reference (Units ) Status Color of Urine by Auto 09/05/2023 04:50:41 Colorless Colorless, Light Yellow, Yellow, Dark Yellow Final Clarity, Urine 09/05/2023 04:50:41 Clear Clear Final Glucose [Mass/volume] in Urine by Automated test strip 09/05/2023 04:50:41 Negative Negative (mg/dL) Final Bilirubin.total [Presence] in Urine by Automated test strip 09/05/2023 04:50:41 Negative Negative Final Ketones [Mass/volume] in Urine by Automated test strip 09/05/2023 04:50:41 80 Abnormal Negative (mg/dL) Final Specific gravity, Urine 09/05/2023 04:50:41 1.029 1.003-1.030 Final Hemoglobin [Presence] in Urine by Automated test strip 09/05/2023 04:50:41 Negative Negative Final pH, Urine 09/05/2023 04:50:41 6.0 5.0-7.5 (Units) Final Protein [Mass/volume] in Urine by Automated test strip 09/05/2023 04:50:41 Negative Negative (mg/dL) Final Urobilinogen [Mass/volume] in Urine by Automated test strip 09/05/2023 04:50:41 Normal Normal (mg/dL) Final Nitrite [Presence] in Urine by Automated test strip 09/05/2023 04:50:41 Negative Negative Final Leukocyte esterase [Presence] in Urine by Automated test strip 09/05/2023 04:50:41 Negative Negative Final Annotation Comment 09/05/2023 04:50:41 Final Screen negative - Microscopi c not performed. Performing Location LABORATORY [facility] [place] - [address] [facility] [address]
--- OUTSIDE RECORDS SUMMARY | 2023-09-28 01:29 | External Medical Summary ---
Author Name Unknown Address Unknown Organization K01:[place] [facility] [facility] [place] [facility] [address] [facility] [address] Laboratory Report Ordering Provider Test Date Status JUDY MANUEL 09/05/2023 13:58:00 Final Observation Date Value Abnormality Reference (Units ) Status WBC, Total 09/05/2023 13:58:00 10.00 4.00-10.80 (K/uL) Final RBC 09/05/2023 13:58:00 3.71 3.85-5.15 (M/uL) Final Hemoglobin 09/05/2023 13:58:00 11.5 Below low normal 12.0-15.3 (g/dL) Final HCT 09/05/2023 13:58:00 34.9 Below low normal 36.0-45.2 (%) Final MCV 09/05/2023 13:58:00 94.1 81.5-97.5 (fL) Final MCH 09/05/2023 13:58:00 31.0 27.0-34.0 (pg) Final MCHC 09/05/2023 13:58:00 33.0 32.0-36.0 (g/dL) Final RDW 09/05/2023 13:58:00 13.1 11.5-15.5 (%) Final Platelets 09/05/2023 13:58:00 111 Below low normal 140-400 (K/uL) Final MPV 09/05/2023 13:58:00 10.6 6.6-11.1 (fL) Final Nucleated erythrocytes/100 leukocytes [Ratio] in Blood by Automated count 09/05/2023 13:58:00 0 <=0 (/100 WBCs) Final Performing Location [place] [facility] [place] [address] [place] [facility] [address]
--- OUTSIDE RECORDS SUMMARY | 2023-09-28 01:29 | External Medical Summary ---
Author Name Unknown Address Unknown Organization K01:LAB[facility]ATORY [facility] [place] - [address] [facility] [address] [facility] [address] Laboratory Report Ordering Provider Test Date Status AMY BURCH 09/05/2023 02:55:00 Final Observation Date Value Abnormality Reference (Units ) Status SYNC LEUKOCYTES IN BLOOD BY AUTOMATED COUNT 09/05/2023 02:55:00 9.73 4.00-10.80 (K/uL) Final Segs 09/05/2023 02:55:00 82.8 Above high normal 40.0-75.0 (%) Final Lymphs % 09/05/2023 02:55:00 8.0 Below low normal 18.0-42.0 (%) Final Monos 09/05/2023 02:55:00 7.5 1.0-11.0 (%) Final Eosinophils 09/05/2023 02:55:00 0.2 0.0-6.0 (%) Final Basos 09/05/2023 02:55:00 0.4 0.0-2.0 (%) Final Immature Granulocyte, Percent 09/05/2023 02:55:00 1.1 0.0-2.0 (%) Final Absolute Segs 09/05/2023 02:55:00 8.05 Above high normal 1.80-7.70 (K/uL) Final Lymphs, absolute 09/05/2023 02:55:00 0.78 Below low normal 1.00-4.80 (K/ul) Final Monos, Abs 09/05/2023 02:55:00 0.73 0.00-1.10 (K/uL) Final Eos, Abs 09/05/2023 02:55:00 0.02 0.00-0.70 (K/uL) Final Basos, Abs 09/05/2023 02:55:00 0.04 0.00-0.20 (K/uL) Final Immature Granulocytes, Number 09/05/2023 02:55:00 0.11 0.00-0.20 (K/uL) Final Performing Location LAB[facility]ORY [facility] [place] - [facility] [place] [address]
--- OUTSIDE RECORDS SUMMARY | 2023-09-28 01:29 | External Medical Summary ---
Author Name Unknown Address Unknown Organization K01:[place] [facility] [place] [facility] [address] [facility] [address] Laboratory Report Ordering Provider Test Date Status JUDY MANUEL 09/06/2023 21:30:00 Final Observation Date Value Abnormality Reference (Units ) Status WBC, Total 09/06/2023 21:30:00 10.54 4.00-10.80 (K/uL) Final RBC 09/06/2023 21:30:00 2.65 3.85-5.15 (M/uL) Final Hemoglobin 09/06/2023 21:30:00 8.4 Below low normal 12.0-15.3 (g/dL) Final HCT 09/06/2023 21:30:00 23.8 Below low normal 36.0-45.2 (%) Final MCV 09/06/2023 21:30:00 89.8 81.5-97.5 (fL) Final MCH 09/06/2023 21:30:00 31.7 27.0-34.0 (pg) Final MCHC 09/06/2023 21:30:00 35.3 32.0-36.0 (g/dL) Final RDW 09/06/2023 21:30:00 14.5 11.5-15.5 (%) Final Platelets 09/06/2023 21:30:00 71 Below low normal 140-400 (K/uL) Final MPV 09/06/2023 21:30:00 11.5 6.6-11.1 (fL) Final Nucleated erythrocytes/100 leukocytes [Ratio] in Blood by Automated count 09/06/2023 21:30:00 0 <=0 (/100 WBCs) Final Performing Location [facility] [facility] [place] [address] [place] [address]
--- OUTSIDE RECORDS SUMMARY | 2023-09-28 01:29 | External Medical Summary ---
Author Name Unknown Address Unknown Organization : Laboratory Report Ordering Provider Test Date Status ARACELI SINGH 09/05/2023 20:10:20 Final Observation Date Value Abnormality Reference (Units ) Status Blood draw [PhenX] 09/05/2023 20:10:20 Venous Final pH, POC (i-STAT) 09/05/2023 20:10:20 7.174 Below lower panic limits 7.350-7.450 Final PCO2 POC (i-STAT) 09/05/2023 20:10:20 41.2 35.0-45.0 (mm Hg) Final PO2 POC (i-STAT) 09/05/2023 20:10:20 72 Below low normal 75-100 (mm Hg) Final Base excess standard in Arterial blood by calculation 09/05/2023 20:10:20 -13 Below low normal -2-2 (mmol/L) Final Bicarbonate, Venous, POC (i-STAT) 09/05/2023 20:10:20 15.1 Below low normal 23.0-31.0 (mmol/L) Final O2 Sat, calculated POC (i-STAT) 09/05/2023 20:10:20 90.0 Below low normal 94.0-98.0 (%) Final Glucose, whole blood 09/05/2023 20:10:20 121 Above high normal 70-120 (mg/dL) Final Potassium, Whole Blood 09/05/2023 20:10:20 3.8 3.5-5.1 (mmol/L) Final Sodium, Whole Blood 09/05/2023 20:10:20 138 135-146 (mmol/L) Final Calcium, Ionized, Whole Blood 09/05/2023 20:10:20 1.09 Below low normal 1.13-1.32 (mmol/L) Final Hemoglobin POC (i-STAT) 09/05/2023 20:10:20 9.5 Below low normal 12.0-15.3 (g/dL) Final HCT 09/05/2023 20:10:20 28 Below low normal 36-45 (%) Final Performing Location
--- OUTSIDE RECORDS SUMMARY | 2023-09-28 01:29 | External Medical Summary ---
Author Name Unknown Address Unknown Organization K01:[place] [facility] [place] [address] [facility] [address] Laboratory Report Ordering Provider Test Date Status ANANYA GIORDANO 09/06/2023 10:36:00 Final Observation Date Value Abnormality Reference (Units ) Status Lactic Acid 09/06/2023 10:36:00 1.1 0.4-2.0 (mmol/L) Final Performing Location [place] [facility] [place] [address] [place] [address]
--- OUTSIDE RECORDS SUMMARY | 2023-09-28 01:29 | External Medical Summary ---
Author Name Unknown Address Unknown Organization K01:[place] [facility] [place] [address] [place] [address] [place] [address] Laboratory Report Ordering Provider Test Date Status AMY BURCH 09/05/2023 02:55:00 Final Observation Date Value Abnormality Reference (Units ) Status Ethanol 09/05/2023 02:55:00 Negative Negative Final Performing Location [place] [facility] [place] [address] [facility] [address]
--- OUTSIDE RECORDS SUMMARY | 2023-09-28 01:29 | External Medical Summary ---
Author Name Unknown Address Unknown Organization K01:LABOR[facility]ORY [facility] [place] - [facility] [address] [facility] [address] Laboratory Report Ordering Provider Test Date Status JUDY MANUEL 09/07/2023 04:48:00 Final Observation Date Value Abnormality Reference (Units ) Status WBC, Total 09/07/2023 04:48:00 9.82 4.00-10.80 (K/uL) Final RBC 09/07/2023 04:48:00 2.61 3.85-5.15 (M/uL) Final Hemoglobin 09/07/2023 04:48:00 8.1 Below low normal 12.0-15.3 (g/dL) Final HCT 09/07/2023 04:48:00 24.0 Below low normal 36.0-45.2 (%) Final MCV 09/07/2023 04:48:00 92.0 81.5-97.5 (fL) Final MCH 09/07/2023 04:48:00 31.0 27.0-34.0 (pg) Final MCHC 09/07/2023 04:48:00 33.8 32.0-36.0 (g/dL) Final RDW 09/07/2023 04:48:00 14.5 11.5-15.5 (%) Final Platelets 09/07/2023 04:48:00 74 Below low normal 140-400 (K/uL) Final MPV 09/07/2023 04:48:00 10.9 6.6-11.1 (fL) Final Nucleated erythrocytes/100 leukocytes [Ratio] in Blood by Automated count 09/07/2023 04:48:00 0 <=0 (/100 WBCs) Final Performing Location LABORATORY [facility] [place] - [address] [place] [address]
--- OUTSIDE RECORDS SUMMARY | 2023-09-28 01:29 | External Medical Summary ---
Author Name Unknown Address Unknown Organization K01:[place] [facility] [place] [address] [facility] [address] Laboratory Report Ordering Provider Test Date Status PASQUALEANANYA 09/06/2023 11:59:07 Final Observation Date Value Abnormality Reference (Units ) Status Color of Urine by Auto 09/06/2023 11:59:07 Yellow Colorless, Light Yellow, Yellow, Dark Yellow Final Clarity, Urine 09/06/2023 11:59:07 Clear Clear Final Glucose [Mass/volume] in Urine by Automated test strip 09/06/2023 11:59:07 Negative Negative (mg/dL) Final Bilirubin.total [Presence] in Urine by Automated test strip 09/06/2023 11:59:07 Negative Negative Final Ketones [Mass/volume] in Urine by Automated test strip 09/06/2023 11:59:07 80 Abnormal Negative (mg/dL) Final Specific gravity, Urine 09/06/2023 11:59:07 1.038 Above high normal 1.003-1.030 Final Hemoglobin [Presence] in Urine by Automated test strip 09/06/2023 11:59:07 Negative Negative Final pH, Urine 09/06/2023 11:59:07 6.0 5.0-7.5 (Units) Final Protein [Mass/volume] in Urine by Automated test strip 09/06/2023 11:59:07 30 Abnormal Negative (mg/dL) Final Urobilinogen [Mass/volume] in Urine by Automated test strip 09/06/2023 11:59:07 Normal Normal (mg/dL) Final Nitrite [Presence] in Urine by Automated test strip 09/06/2023 11:59:07 Negative Negative Final Leukocyte esterase [Presence] in Urine by Automated test strip 09/06/2023 11:59:07 Negative Negative Final RBC, Urine 09/06/2023 11:59:07 0-2 0-2 (/HPF) Final WBC, Urine 09/06/2023 11:59:07 3-5 Abnormal 0-2 (/HPF) Final Bacteria [#/area] in Urine sediment by Microscopy high power field 09/06/2023 11:59:07 26-50 Abnormal 0-25 (/HPF) Final Hyaline casts, Urine 09/06/2023 11:59:07 1-4 Abnormal None (/LPF) Final Performing Location [facility] [facility] [place] [facility] [address] [facility] [address]
--- OUTSIDE RECORDS SUMMARY | 2023-09-28 01:29 | External Medical Summary ---
Author Name Unknown Address Unknown Organization K01:LABORATORY [facility] - [address] [facility] [address] Laboratory Report Ordering Provider Test Date Status AMY BURCH 09/05/2023 02:55:00 Final Observation Date Value Abnormality Reference (Units ) Status Lactic Acid 09/05/2023 02:55:00 0.8 0.4-2.0 (mmol/L) Final Performing Location LABORATORY [facility] - [address] [facility] [address]
--- OUTSIDE RECORDS SUMMARY | 2023-09-28 01:29 | External Medical Summary ---
Author Name Unknown Address Unknown Organization K01:[facility]ORY [facility] [place] [address] [place] [address] Laboratory Report Ordering Provider Test Date Status JUDY MANUEL 09/06/2023 04:28:00 Final Observation Date Value Abnormality Reference (Units ) Status WBC, Total 09/06/2023 04:28:00 11.08 Above high normal 4.00-10.80 (K/uL) Final RBC 09/06/2023 04:28:00 3.13 3.85-5.15 (M/uL) Final Hemoglobin 09/06/2023 04:28:00 9.7 Below low normal 12.0-15.3 (g/dL) Final HCT 09/06/2023 04:28:00 29.4 Below low normal 36.0-45.2 (%) Final MCV 09/06/2023 04:28:00 93.9 81.5-97.5 (fL) Final MCH 09/06/2023 04:28:00 31.0 27.0-34.0 (pg) Final MCHC 09/06/2023 04:28:00 33.0 32.0-36.0 (g/dL) Final RDW 09/06/2023 04:28:00 14.6 11.5-15.5 (%) Final Platelets 09/06/2023 04:28:00 83 Below low normal 140-400 (K/uL) Final MPV 09/06/2023 04:28:00 11.1 6.6-11.1 (fL) Final Nucleated erythrocytes/100 leukocytes [Ratio] in Blood by Automated count 09/06/2023 04:28:00 0 <=0 (/100 WBCs) Final Performing Location LABORATORY [facility] [place] [address] [place] [address]
--- OUTSIDE RECORDS SUMMARY | 2023-09-28 01:29 | External Medical Summary ---
Author Name Unknown Address Unknown Organization K01:[place] [facility] [place] [address] [place] [address] Laboratory Report Ordering Provider Test Date Status AMY BURCH 09/05/2023 02:55:00 Final Observation Date Value Abnormality Reference (Units ) Status BUN 09/05/2023 02:55:00 10 6-20 (mg/dL) Final Creatinine 09/05/2023 02:55:00 0.7 0.5-1.0 (mg/dL) Final Glomerular filtration rate/1.73 sq M.predicted [Volume Rate/Area] in Serum, Plasma or Blood by Creatinine-based formula (CKD-EPI) 09/05/2023 02:55:00 90 >=60 (mL/min) Final eGFR is calculated based on the CKD-EPI 2020 equation Sodium 09/05/2023 02:55:00 141 135-146 (m mol/L) Final Potassium 09/05/2023 02:55:00 4.0 3.5-5.1 (m mol/L) Final Cl 09/05/2023 02:55:00 109 Above high normal 98 -107 (mmol/L) Final CO2 09/05/2023 02:55:00 18 Below low normal 22- 32 (mmol/L) Final Anion gap 09/05/2023 02:55:00 14 7-15 (mmol /L) Final Glucose 09/05/2023 02:55:00 96 70-120 (mg /dL) Final Calcium 09/05/2023 02:55:00 8.5 8.4-10.2 ( mg/dL) Final Performing Location LAB[facility] [place] [address] [place] [address]
--- OUTSIDE RECORDS SUMMARY | 2023-09-28 01:29 | External Medical Summary | Summary of Care ---
Author Name Unknown Organization [facility] Address [address] [place] [address] Phone [phone] Care Team Providers Care Therapeutic Assistant Name Role Phone Yamini Piper MD Primary Care Provider [phone] Reason for Visit * Reason Onset Date Comments Test Results 09/05/2023 Unexpected or In determinate Result Encounter Details Date Type Department Care Team (Late st Contact Info) Description 09/05/2023 Telephone Laboratory, [place] [address] [place] [address] Houston Wiseman MD [address] [place] [address] Test Results (Unexpected or Indeterminate ... Allergies Active Allergy Reactions Criticality Noted Date Comments Pollen 06/17/2014 Nasal congestion documented as of this encounter (statuses as of 09/05/2023) Medications Medication Sig Dispensed Refills Start Date [...] as of this encounter (statuses as of 09/05/2023) Active Problems Problem Noted Date Diagnosed Date [...] as of this encounter (statuses as of 09/05/2023) Resolved Problems Problem Noted Date Diagnosed Date Resolved Date Encounter for examination fo r normal comparison and control in clinical research program 07/26/2017 09/30/2019 Overview: DO NOT DELETE [facility] DETECT Study: Project # [id number], Milk Hauler: Eric Magana, PhD. SUMMARY: Goal: Establish test [...] contact study staff at ; after hours Milk Hauler via the [facility] capsule filling machine operator . Please contact study team before resolving/deleting from patients problem list. Study phone number: [phone]. Diagnosis changed due to Research Module. Go to Snapshot for study details. Encounter for examination fo r normal comparison and control in clinical research program 07/26/2017 10/28/2021 Overview: DO NOT DELETE - [facility] Study: Project # [id number], Milk Hauler: Jordan Umana, MS, MPH. SUMMARY: Goal: Establish [...] contact study staff at ; after hours Milk Hauler via the [facility] capsule filling machine operator . - Please contact study team before resolving/deleting from patients problem list. Study phone number: [phone]. Diagnosis changed due to Research Module. Go to Snapshot for study details. Prediabetes 04/11/2017 05/09/2019 Overview: Per Prediabetes protocol #1 documented as of this encounter (statuses as of 09/05/2023) Immunizations Name Administration Dates Next Due COVID-19 [...] encounter Miscellaneous Notes * Telephone Encounter - Sharmila Waddell PBT - 09/05/2023 11:43 AM EDT Hello- The radiologist discovered an unexpected or indeterminate finding on Beth Dickson Rikki ([id number]) and asks that you review the following report. Study Type: CT 3D RECONSTRUCTION MUSCULOSKELETAL Date of Study: 09/05/2023 IMPRESSION 1. Redemonstrated comminuted and displaced fracture of the acetabulum, involving the posterior acetabulum and superolateral acetabulum. 2. Redemonstrated comminuted and mildly impacted medial femoral head fracture. 3. Asymmetric enlargement of the right gluteal muscles, which may represent strain or hematoma on this noncontrast study. Please respond to this encounter to acknowledge receipt of this message and take responsibility to ensure this report is reviewed. Thank you, ROMÁN Mata Client Service Rep [facility] [place] documented in this encounter Plan of Treatment Upcoming Encounters Date Type Department Care Team (Late st Contact Info) Description 12/22/2023 2:00 PM EDT Office Visit General Internal Medicine [place] [place] [address] [place] [address] Yamini Piper MD [address] [place] [id number] 02/01/2024 10:00 AM EST Cardiac Studies Cardiology, [facility] [address] [facility] [place] [address] Alex Pacer [facility] [address] [place] [address] Scheduled Procedures Name Priority Associated Diagnoses Date/Ti me OPEN TREATMENT POSTERIOR OR ANTERIOR ACETABULAR WALL Fracture 09/05/2023 3:33 PM EDT COLONOSCOPY FLEXIBLE PROXIMAL DIAGNOSTIC Recall History of colonic polyps Health Maintenance Due Date Last Done Comments COVID-19 Vaccine ( season) 2023 12/29/2022, 01/05/2021, 05/02/2020, Additional history exists Depression Screening 10/12/2023 10/11/2022 [...] documented as of this encounter Medical Devices Not on filedocumented as of this encounter Advance Directives * Full Code (Latest Code Status on File) Date Activated Date Inactivated Comments 09/05/2023 3:03 AM This order refl ects the patients wishes and were consensually agreed upon. Does not want trach / peg. Question Answer Comments Discussion of Advance Directives occurred with: Patient Care Teams Therapeutic Assistant Relationship Specialty Start Date End Date Yamini Piper MD [address] [facility] [place] [address] PCP - General Internal Medicine 05/03/18 documented as of this encounter
--- OUTSIDE RECORDS SUMMARY | 2023-09-28 01:29 | External Medical Summary ---
Author Name Unknown Address Unknown Organization K01:LABORATORY [facility] - [facility] [address] Laboratory Report Ordering Provider Test Date Status JUDY MANUEL 09/05/2023 04:27:00 Final Observation Date Value Abnormality Reference (Units ) Status WBC, Total 09/05/2023 04:27:00 8.73 4.00-10.80 (K/uL) Final RBC 09/05/2023 04:27:00 3.86 3.85-5.15 (M/uL) Final Hemoglobin 09/05/2023 04:27:00 12.0 12.0-15.3 (g/dL) Final HCT 09/05/2023 04:27:00 35.9 Below low normal 36.0-45.2 (%) Final MCV 09/05/2023 04:27:00 93.0 81.5-97.5 (fL) Final MCH 09/05/2023 04:27:00 31.1 27.0-34.0 (pg) Final MCHC 09/05/2023 04:27:00 33.4 32.0-36.0 (g/dL) Final RDW 09/05/2023 04:27:00 12.9 11.5-15.5 (%) Final Platelets 09/05/2023 04:27:00 120 Below low normal 140-400 (K/uL) Final MPV 09/05/2023 04:27:00 10.6 6.6-11.1 (fL) Final Nucleated erythrocytes/100 leukocytes [Ratio] in Blood by Automated count 09/05/2023 04:27:00 0 <=0 (/100 WBCs) Final Performing Location LABORATORY [facility] - [address] [place] [address]
--- OUTSIDE RECORDS SUMMARY | 2023-09-28 01:29 | External Medical Summary ---
Author Name Unknown Address Unknown Organization K01:LABORATORY [facility] - [address] [facility] [place]. [facility] [address] Laboratory Report Ordering Provider Test Date Status CANDIDA HARO 09/06/2023 04:28:00 Final Observation Date Value Abnormality Reference (Units ) Status Phosphate 09/06/2023 04:28:00 2.9 2.5-4.8 (m g/dL) Final Performing Location [facility]ORY [facility] - [address] [facility] [address]
--- OUTSIDE RECORDS SUMMARY | 2023-09-28 01:29 | External Medical Summary ---
Author Name Unknown Address Unknown Organization [id number]:LABORATORY [facility] - [address] [facility] [place]. [facility] [address] Laboratory Report Ordering Provider Test Date Status AMY BURCH 09/05/2023 02:55:00 Final Anticoagulation may affect t esting. Refer to [facility] Test Catalog for a list of effects. Observation Date Value Abnormality Reference (Units ) Status aPTT panel - Platelet poor plasma 09/05/2023 02:55:00 27 21-38 (seconds) Final Performing Location LABORATORY [facility] - [address] [place] [address]
--- OUTSIDE RECORDS SUMMARY | 2023-09-28 01:29 | External Medical Summary ---
Author Name Unknown Address Unknown Organization K01:LABORATORY [facility] - [facility] [address] [facility] [address] Laboratory Report Ordering Provider Test Date Status AMY BURCH 09/05/2023 04:50:41 Final Cutoff Concentrations:
D rug Level
Codeine 40 ng/mL
Morphine 40 ng/mL
Hydrocodone 40 ng/mL
Hydromorphone 40 ng/mL
Dihydrocodeine 40 ng/mL
Oxycodone 50 ng/mL
Oxymorphone 50 ng/mL

This test was developed and its performance characteristics determined by [employer]. It has not been cleared or approved by the [place] Food and Drug Administration. Observation Date Value Abnormality Reference (Units ) Status METHODOLOGY 09/05/2023 04:50:41 LC-MS/MS Final Codeine 09/05/2023 04:50:41 Negative Negative Final Morphine, Urine confirmatory 09/05/2023 04:50:41 462 Above high normal Negative (ng/mL) Final HYDROcodone cutoff [Mass/volume] in Urine for Confirmatory method 09/05/2023 04:50:41 Negative Negative Final HYDROmorphone [Mass/volume] in Urine 09/05/2023 04:50:41 Negative Negative Final Dihydrocodeine [Mass/volume] in Urine by Confirmatory method 09/05/2023 04:50:41 Negative Negative Final oxyCODONE [Presence] in Urine by Screen method 09/05/2023 04:50:41 Negative Negative Final oxyMORphone cutoff [Mass/volume] in Urine for Confirmatory method 09/05/2023 04:50:41 Negative Negative Final Performing Location LABORATORY [facility] - [address] [facility] [address]
--- OUTSIDE RECORDS SUMMARY | 2023-09-28 01:29 | External Medical Summary ---
Author Name Unknown Address Unknown Organization K01:[facility] [place] [address] [place] [id number] Laboratory Report Ordering Provider Test Date Status AMY BURCH 09/05/2023 04:50:41 Final Observation Date Value Abnormality Reference (Units) Status Bacteria identified in Specimen by Culture 09/05/2023 04:50:41 No significant growth Final Test: Culture, Urine, Quanti tative
Specimen Source: Urine, Unspecified
Specimen Type: Urine
Specimen Date: 09/05/2023449
Result Date: 09/06/2023 0836
Result Status: Final result
Resulting Lab: [facility]
[address]
[facility] [address]

CULTURE

No significant growth

null Performing Location [facility] - [address] [facility] [address]
--- OUTSIDE RECORDS SUMMARY | 2023-09-28 01:29 | External Medical Summary ---
Author Name Unknown Address Unknown Organization K01:LABORATORY [facility] - [address] [address] Laboratory Report Ordering Provider Test Date Status MARCINREYES 09/05/2023 02:55:00 Final Warfarin Therapy
INR: 2 .0-3.0 conventional anticoagulation
INR: 2.5- 3.5 high intensity anticoagulation Observation Date Value Abnormality Reference (Units ) Status PT 09/05/2023 02:55:00 13.4 11.6-15.2 (seconds) Final INR 09/05/2023 02:55:00 1.0 0.8-1.2 Final Performing Location LABORATORY [facility] - [address] [place] [address]
--- NOTE | 2023-09-28 01:37 | Critical Care Consultation ---
Date of Consultation September 28, 2023 Assessment & Plan (1) Acute GI bleeding: Reason Critically Ill: 78-year-old female With recent admission for acetabular fracture following fall at [facility] and discharged to assisted living, now presents with acute GI bleed and hematochezia with hemoglobin of 4.2 and syncopal episode. She is undergoing transfusion and awaiting endoscope via GI. Neuro - [facility] ICU: Negative Cardiac - Currently hemodynamically stable without need for vasopressors. Patient did h ave episode of syncope in the emergency department while Using the bathroom prior to administration of blood. Suspect this is likely due to GI bleed/decreased volume status and possible vagal events. Will treat with transfusion as described below Sick sinus syndromestatus post pacemaker 2011. Currently sinus rhythm on monitor. Continuous monitoring on telemetry HLDcontinue statin when appropriate Respiratory - No history of pulmonary disease. Currently maintaining oxygen saturations on room air. Continuous monitoring pulse ox GI - Acute GI bleedno prior history of GI bleed. Patient does deny NSAID use, and was taken off of Lovenox 1 week ago. She is not anticoagulated. She has had routine colonoscopies in the past where she was only found to have polyps, without diagnosis of diverticulitis. CT abdomen and pelvis essentially unremarkable. GI consulted and is currently awaiting endoscope. Admitted to the ICU for close monitoring and further management overnight. See below for transfusions. Continue Protonix drip RENAL/LYTES - Creatinine within normal limits, monitor routine BMPs and replete electrolytes as indicated - Strict I's and O's ENDO - Hypothyroidismcontinue Synthroid when appropriate HEME - Acute blood loss anemiasecondary to GI bleed. Initial hemoglobin of 6.4 dropped to 4.8 prior to blood transfusion. Patient now received 2 units RBCs. No coagulopathy. Will repeat INR, H&H, and fibrinogen following transfusion, and transfuse as indicated. ID - No indication for infectious process at this time LINES/IV ACCESS - Large-bore peripheral IVs DVT PROPHYLAXIS - SCDs, hold anticoagulation in the setting of GI bleed Orthostatus post acetabular/femur fracture repair and total hip replacement at [facility] this past month. Will consult PT OT when appropriate CRITICAL CARE TIME - I have personally spent 57 minutes of critical care time in the direct management of this patient. This is a life/limb threatening event. This includes time spent evaluating patient, direct bedside care, chart review, placing orders, interpretation of diagnostic studies, discussion with consultants, patient, and family members, as well as other required patient management activities. This time is exclusive of all separately billable procedures, and teaching time and separate from and in addition to any other critical care service time. (2) Bloody diarrhea: (3) Near syncope: (4) Hyperlipidemia: Supervising Physician Co-Signing Physician Notes Patient seen and examined. EMR reviewed. Discussed with critical care RONNY and agree with assessment plan as noted. Patient is currently receiving her 15 of packed cells. She has antibodies so makes it difficult to receive blood products. She is also received 1 unit cryoprecipitate. She remains hemodynamically stable but is tachycardic and continues to have melena. GI evaluation pending for this morning. Given ongoing bleeding, will consult general surgery. Depending on GI evaluation and results of endoscopy, patient may benefit from interventional radiology or potentially tagged scan. If bleeding becomes ongoing issue and is not controllable with the above interventions, consideration for surgical resection might be appropriate however would like to localize the source of bleeding. Continue to follow hemoglobin and hematocrit as well as coagulation parameters. Calcium will be repleted this morning. Not sure the patient requires protonic drip however will await GI evaluation. Patient is critically ill with significant probability of clinical decline. An additional 45 minutes of critical care time was spent in evaluation management stabilization of this patient History of Present Illness Attending Physician: Lesly Kim MD History of Present Illness Patient is 78-year-old female with past medical history of HLD, hypothyroidism, sick sinus syndrome (s/p pacemaker 2011), anemia, and recent admission at [facility] in August in which the patient underwent a fall and had a right femur fracture and right acetabular fracture with retroperitoneal hematoma. During that admission she underwent ORIF and Additional surgery for total hip. She was discharged to [facility], and there was there for 10 days. Following, she was discharged from rehab to assisted living at [facility] 7 days ago. Patient now presents to the emergency department today with 2 episodes of bloody diarrhea this afternoon. She also reports dark stools over the past week and dizziness and fatigue that started on Monday. She reported to her primary care on Monday but felt somewhat better at that time, but was noted to have a hemoglobin of 8.3 and her baseline hemoglobin is normally 11-12 on previous admissions. She reports that surgical team discontinued her Lovenox a week ago, and she is not anticoagulated. She has had colonoscopies in the past with polyps removed, but does not have history of GI bleed. She did receive 2 units of blood at [place] this past month. Patient did have syncopal episode while going to the bathroom in the emergency department in which she lost consciousness. She has remained normotensive, although her hemoglobin was initially 6.8 on arrival with a repeat of 4.8 prior to blood transfusion. She did receive 2 units RBCs following this. Her coags were unremarkable. She also underwent CT abdomen and pelvis which was unremarkab le for acute findings. GI was consulted by the primary team and plan to undergo endoscopy this morning. Patient now being admitted to ICU for medical management. Upon evaluation the patient is alert and oriented and hemodynamically stable without acute distress, maintaining oxygen saturations on room air. She is slightly pale in color, and does report feeling fatigued. She denies current dizziness, nausea or vomiting, hematemesis. She did have an additional bloody stool in the emergency department that was noted to have bright red Clots. In addition she does report some abdominal discomfort with cramping, but denies abdominal tenderness. She denies headache, changes in vision, recent illness or fevers, cough or congestion, sore throat, shortness of breath, chest pain or palpitations. She does report swelling to the right hip and lower extremity which has been ongoing since her initial fall. Patient states that she has been walking with assistance multiple times a day at assisted living with PT. Allergies Allergy/AdvReac Type Severity Reaction Status Date / Time No Known Drug Allergies Allergy Unknown . Verified 09/27/23 22:40 Home Medications Medication Instructions Recorded Confirmed Type aspirin 81 mg chewable tablet 81 mg PO QAM 10/25/17 09/27/23 History fluticasone propionate 50 2 spray intranasal QAM Other 10/25/17 09/27/23 History mcg/actuation nasal spray,suspension (Flonase Allergy Relief) atorvastatin 40 mg tablet 40 mg PO QAM 10/04/22 09/27/23 History levothyroxine 75 mcg tablet 75 mcg PO DAILYBB 10/04/22 09/27/23 History Bacitracin Oint 1 applic topical TID 09/27/23 09/27/23 History acetaminophen 325 mg tablet 975 mg PO Q6 09/27/23 09/27/23 History (Tylenol) baclofen 10 mg tablet 10 mg PO HS PRN Muscle Spasm 09/27/23 09/27/23 History carisoprodol 350 mg tablet 175 mg PO QID PRN Muscle Spasm 09/27/23 09/27/23 History cetirizine 10 mg tablet (Zyrtec) 10 mg PO DAILY 09/27/23 09/27/23 History docusate sodium 100 mg capsule 100 mg PO BID 09/27/23 09/27/23 History ferrous sulfate 325 mg (65 mg 325 mg PO BID 09/27/23 09/27/23 History iron) tablet melatonin 5 mg tablet 5 mg PO HS 09/27/23 09/27/23 History tramadol 50 mg tablet 25 mg PO Q6 PRN Pain 09/27/23 09/27/23 History Patient History Medical History Osteoarthritis Hypothyroidism Migraine "flashing headaches" Syncope Hyperlipidemia Asthma as a child/no problems now Surgical History History of open reduction and internal fixation (ORIF) procedure left tib/fib History of colonoscopy History of tooth extraction History of tonsillectomy History of cataract surgery rt eye Family History Mother Family history of diabetes mellitus Brother Family history of diabetes mellitus Other Family hx of colon cancer Social History Smoking Status: Never smoker Second Hand Exposure: No; Do You Dip or Chew Tobacco: No; Hx Alcohol Use: No Hx Substance Use: No Preferred Language: Dutch Communication Ability: Effective Butter Grader Required: No Beliefs That Will Affect Care: None Current Living Situation: Jail Current Living Situation Comment: [place] Other Information That Helps Us Care for You: No Feels Safe at Home: Yes Safety Concerns: Feels Safe At This Time Assistive Devices: Brace/Splint/Immobilizer and Hearing Aid - Bilateral Review of Systems Review of Systems: All systems reviewed & are unremarkable except as noted in HPI & below Physical Exam Constitutional: WD/WN, vitals as above Eyes: PERRL, conjunctivae normal, anicteric sclerae ENMT: external ear and nose normal, oropharynx normal Neck: trachea midline, no thyromegaly Respiratory: normal respiratory effort, lungs clear to auscultation Cardiovascular: RRR, no murmur, no edema Heart Sounds: normal S1 and normal S2 Gastrointestinal (Abdomen): Hyperactive bowel sounds, nontender, abdomen flat and soft. Positive hematochezia Musculoskeletal: Swelling and edema to the right lower extremity Extending from the foot to the hip Skin: no rashes, warm and dry Neurologic: PERRL, EOMI, accommodation nl, no face palsy, no dysarthria Psychiatric: A+Ox3, euthymic affect Results & Data Results & Data Vital Signs (Past 12 Hours) Vital Signs Temp Pulse Pulse Resp BP BP Pulse Ox 09/28/23 00:01 107/52 L 09/28/23 00:01 107/52 L 09/28/23 00:00 107 H 24 78 L 09/28/23 00:00 37.1 C 95 H 18 107/52 L 98 09/27/23 23:58 106/57 L 09/27/23 23:58 106/57 L 09/27/23 23:58 106/57 L 09/27/23 23:57 100 H 20 09/27/23 23:37 09/27/23 23:30 113/63 09/27/23 23:27 95 H 21 99 09/27/23 23:20 111/59 L 09/27/23 23:20 111/59 L 09/27/23 23:20 111/59 L 09/27/23 23:18 95 H 16 99 09/27/23 23:10 133/68 09/27/23 23:10 133/68 09/27/23 23:04 102/64 09/27/23 23:02 37.1 C 103 H 20 102/64 99 09/27/23 23:00 98/60 L 09/27/23 22:58 37.1 C 99 H 24 104/64 98 09/27/23 22:50 104/49 L 09/27/23 22:45 105 H 20 100 09/27/23 22:42 36.8 C 102 H 21 133/68 100 09/27/23 22:41 109/51 L 09/27/23 22:41 109/51 L 09/27/23 22:41 109/51 L 09/27/23 22:38 37.6 C H 96 H 23 114/58 L 95 09/27/23 22:30 114/58 L 09/27/23 22:27 84 24 99 09/27/23 22:12 115 H 21 98 09/27/23 22:12 91/46 L 09/27/23 22:12 91/46 L 09/27/23 22:12 37.3 C 115 H 19 91/46 L 98 09/27/23 22:00 108 H 17 96 09/27/23 22:00 100/51 L 09/27/23 22:00 100/51 L 09/27/23 22:00 100/51 L 09/27/23 21:58 103/47 L 09/27/23 21:57 37.5 C 108 H 19 103/47 L 97 09/27/23 21:48 107 H 16 96 09/27/23 21:39 105 H 13 96 09/27/23 21:39 98/48 L 09/27/23 21:38 37.6 C H 105 H 13 98/48 L 96 09/27/23 21:30 114/49 L 09/27/23 21:30 114/49 L 09/27/23 21:20 103 H 15 113/53 L 96 09/27/23 21:18 104 H 25 H 97 09/27/23 21:03 102 H 19 96 09/27/23 21:00 104/50 L 09/27/23 21:00 104/50 L 09/27/23 20:54 105 H 19 97 09/27/23 20:00 104 H 18 96 09/27/23 20:00 101/56 L 09/27/23 20:00 101/56 L 09/27/23 20:00 101/56 L 09/27/23 19:30 123/62 09/27/23 19:30 123/62 09/27/23 19:14 105 H 12 114/70 98 09/27/23 19:12 96 09/27/23 19:09 96 09/27/23 17:27 103 H 23 124/64 95 09/27/23 15:47 10 L 20 99 09/27/23 15:35 106 H 20 139/69 99 09/27/23 15:35 37.6 C H 106 H 20 139/69 99 O2 Del Method 09/28/23 00:01 09/28/23 00:01 09/28/23 00:00 09/28/23 00:00 Room Air 09/27/23 23:58 09/27/23 23:58 09/27/23 23:58 09/27/23 23:57 09/27/23 23:37 Room Air 09/27/23 23:30 09/27/23 23:27 09/27/23 23:20 09/27/23 23:20 09/27/23 23:20 09/27/23 23:18 09/27/23 23:10 09/27/23 23:10 09/27/23 23:04 09/27/23 23:02 09/27/23 23:00 09/27/23 22:58 09/27/23 22:50 09/27/23 22:45 09/27/23 22:42 Room Air 09/27/23 22:41 09/27/23 22:41 09/27/23 22:41 09/27/23 22:38 Room Air 09/27/23 22:30 09/27/23 22:27 09/27/23 22:12 09/27/23 22:12 09/27/23 22:12 09/27/23 22:12 09/27/23 22:00 09/27/23 22:00 09/27/23 22:00 09/27/23 22:00 09/27/23 21:58 09/27/23 21:57 09/27/23 21:48 09/27/23 21:39 09/27/23 21:39 09/27/23 21:38 09/27/23 21:30 09/27/23 21:30 09/27/23 21:20 Room Air 09/27/23 21:18 09/27/23 21:03 09/27/23 21:00 09/27/23 21:00 09/27/23 20:54 09/27/23 20:00 09/27/23 20:00 09/27/23 20:00 09/27/23 20:00 09/27/23 19:30 09/27/23 19:30 09/27/23 19:14 Room Air 09/27/23 19:12 09/27/23 19:09 09/27/23 17:27 Room Air 09/27/23 15:47 Room Air 09/27/23 15:35 Room Air 09/27/23 15:35 Room Air Coding Level of Care Code 70657 CRITICAL CARE EA ADD 30M Diagnoses Acute GI bleeding K92.2 Bloody diarrhea R19.7 Near syncope R55 Hyperlipidemia E78.5
[2023-09-28] MEDS: BACLOFEN 10 MG TAB PO ONE (02:45)
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
--- OUTSIDE RECORDS SUMMARY | 2023-09-28 05:17 | External Medical Summary | Summary of Care ---
Author Name Unknown Organization [facility] Address [address] [place] [address] Phone [phone] Care Team Providers Care Channel Opener Name Role Phone Yamini Piper MD Primary Care Provider [phone] Reason for Visit * Reason Onset Date Comments Information 09/27/2023 Med list Encounter Details Date Type Department Care Team (Late st Contact Info) Description 09/27/2023 Telephone General Internal Medicine [facility] [address] [facility] [place] [id number] Yamini Piper MD 200 [place] [address] Information (Med list) Allergies Active Allergy Reactions Criticality Noted Date [...] daily at noon. 60 Tablet 09/10/2023 Active Acetaminophen 325 MG Oral Tablet (Tylenol) Take 3 Tablets by mouth every 6 hours. 84 Tablet 1 09/26/2023 Active Melatonin ER 5 MG Oral Tablet Extended ReleaseIndications:O ther insomnia 1 tab an hour before bedtime 30 Tablet 5 09/27/2023 Active Ferrous Sulfate 325 (65 Fe) MG Oral Tablet (Feosol)Indications: Iron deficiency anemia due to chronic blood loss Take 1 Tablet by mouth in the morning and 1 Tablet before bedtime. 60 Tablet 11 09/27/2023 Active Docusate Sodium 100 MG Oral Capsule (Colace)Indications: Constipation, unspecified constipation type Take 1 Capsule by mouth in the morning and 1 Capsule before bedtime. 60 Capsule 5 09/27/2023 Active Baclofen 10 MG Oral Tablet (Lioresal)Indication s:Closed nondisplaced fracture of posterior wall of right acetabulum with routine healing, subsequent encounter,Pain and swelling of right knee Take 1 Tablet by mouth at bedtime as needed for Pain. 20 Tablet 09/27/2023 Active documented as of this encounter (statuses [...] DELETE [facility] DETECT Study: Project # [id number], Wastewater Treatment Plant Operator: Eric Magana, PhD. SUMMARY: Goal: Establish [...] contact study staff at ; after hours Wastewater Treatment Plant Operator via the [facility] hospital name plate stamping machine operator . Please contact study team before resolving/deleting from patients problem list. Study phone number: [phone]. Diagnosis changed due to Research Module. Go to Snapshot for study details. Encounter for examination fo r normal comparison and control in clinical research program 07/26/2017 10/28/2021 Overview: DO NOT DELETE - [facility] NATE Study: Project # [id number], Wastewater Treatment Plant Operator: Jordan Umana, MS, MPH. SUMMARY: Goal: [...] contact study staff at ; after hours Wastewater Treatment Plant Operator via the [facility] hospital name plate stamping machine operator . - Please contact study team before resolving/deleting from patients problem list. Study phone number: [phone]. Diagnosis changed due to Research Module. Go [...] encounter Miscellaneous Notes * Telephone Encounter - Namita Cerda RPh - 09/27/2023 2:11 PM EDT Faxed via right fax to [facility] Thanks, Namita Cerda PharmD Clinical Pharmacist [facility] [phone] 09/27/2023 2:13 PM * Telephone Encounter - Sean Alas PHARM Tech - 09/27/2023 12:44 PM EDT Images from the original note were not included. Facility also requesting a copy of the following four prescriptions be faxed to them at [phone]. Thank you, Sean Alas Regional Retail Sales Manager I [facility] ([facility]) 09/27/2023,12:53 PM documented in this encounter Plan of Treatment Upcoming Encounters Date Type Department Care Team (Late st Contact Info) Description 10/16/2023 9:45 AM EDT Office Visit Orthopaedics, [place] [address] [place] [address] Ranjeet Chowdhury Jr., MD [address] [place] [address] 12/22/2023 2:00 PM EDT Office Visit General Internal Medicine [facility] [place] [address] [place] [address] Yamini Piper MD [address] [place] [address] 02/01/2024 10:00 AM EST Cardiac Studies Cardiology, [facility] [address] [facility] [place] [address] Jourdan Johnson [address] [place] [address] Scheduled Procedures Name Priority Associated Diagnoses Date/Ti [...] this encounter Medical Devices Implanted Type Area Engine Head Repairer Device Identifier Shelf Expiration Date Model / Serial / Lot Plate Lcp Pilon 3.5 7h 240.082 - [id number] Implanted:Qty: 1 on 09/05/2023 by Ranjeet Chowdhury Jr., MD at OR [facility] Right: Pelvis SYNTHES 240.082 / / Hip Head V40 Taper C C 222 0 - [id number] Implanted:Qty: 1 on 09/05/2023 by Ranjeet Chowdhury Jr., MD at OR [facility] Right: Hip TONI : ORTHOPAEDICS 07/09/2028 6260-4-122 / / [id number] Screw Selftap 3.5x36 204.836 - [id number] Implanted:Qty: 2 on 09/05/2023 by Ranjeet Chowdhury Jr., MD at OR [facility] Right: Pelvis SYNTHES 204.836 / / Screw Selftap 3.5x20 204.820 - [id number] Implanted:Qty: 2 on 09/05/2023 by Ranjeet Chowdhury Jr., MD at OR [facility] Right: Pelvis SYNTHES 204.820 / / Implant Hip Acetab Shell 50d - [id number] Implanted:Qty: 1 on 09/05/2023 by Ranjeet Chowdhury Jr., MD at OR [facility] Right: Hip TONI : ORTHOPAEDICS 11/28/2026 709-04-50D / / [id number] Screw Low Profile 6.1irx19gt - [id number] Implanted:Qty: 1 on 09/05/2023 by Ranjeet Chowdhury Jr., MD at OR [facility] Right: Hip TONI : ORTHOPAEDICS 04/05/2028 2649-1923 / / GDBJ Screw Low Profile 6.2cef14pu - [id number] Implanted:Qty: 1 on 09/05/2023 by Ranjeet Chowdhury Jr., MD at OR [facility] Right: Hip TONI : ORTHOPAEDICS 04/03/2028 7923-4587 / / GBCA Hip Liner Mdm Cocr 38 D - [id number] Implanted:Qty: 1 on 09/05/2023 by Ranjeet Chowdhury Jr., MD at OR [facility] Right: Hip TONI : ORTHOPAEDICS 07/24/2028 626-00-38D / / [id number] Implant Stem Hip Colr Std 2 - [id number] Implanted:Qty: 1 on 09/05/2023 by Ranjeet Chowdhury Jr., MD at OR [facility] Right: Hip TONI : ORTHOPAEDICS 03/13/2027 7767-1401 / / [id number] Mdm X3 Inser Liner 22x44 - [id number] Implanted:Qty: 1 on 09/05/2023 by Ranjeet Chowdhury Jr., MD at OR [facility] Right: Hip TONI : ORTHOPAEDICS 09/15/2027 7236-2-244 / / [id number] documented as of this encounter Advance Directives [...] Agen t (per Health Care Power of Consumer Affairs Specialist document) Care Teams Channel Opener Relationship Specialty Start Date End Date Yamini Piper MD [address] [place] [address], [place] [address] PCP - General Internal Medicine 05/03/18 documented as of this encounter
--- OUTSIDE RECORDS SUMMARY | 2023-09-28 05:17 | External Medical Summary | Summary of Care ---
Author Name Unknown Organization [facility] Address [address] [place] [address] Phone [phone] Care Team Providers Care Promotions Director Name Role Phone Yamini Piper MD Primary Care Provider [phone] Reason for Visit * Reason Onset Date Comments Medication Refill 09/27/2023 reroute Encounter Details Date Type Department Care Team (Late st Contact Info) Description 09/27/2023 Refill General Internal Medicine [facility] [address] [facility] [place] [address] Yamini Piper MD [address] [place] [address] Other insomnia; Iron deficiency anemia due to chronic blood loss; Constipation, unspecified constipation type; Closed nondisplaced fracture of posterior wall of right acetabulum with routine healing, subsequent encounter; Pain and swelling of right knee Allergies Active Allergy Reactions Criticality Noted Date [...] and 1 Capsule before bedtime. 60 Capsule 09/27/2023 Active Baclofen 10 MG Oral Tablet (Lioresal)Indicatio ns:Closed nondisplaced fracture of posterior wall of right acetabulum with routine healing, subsequent encounter,Pain and swelling of right knee Take 1 Tablet by mouth at bedtime as needed for Pain. 20 Tablet 09/27/2023 Active Melatonin ER 5 MG Oral Tablet Extended ReleaseIndications: Other insomnia 1 tab an hour before bedtime 30 Tablet 5 09/25/2023 4 Discontinu ed(Refill) Ferrous Sulfate 325 (65 Fe) MG Oral Tablet (Feosol)Indications :Iron deficiency anemia due to chronic blood loss Take 1 Tablet by mouth in the morning and 1 Tablet before bedtime. 60 Tablet 11 09/25/2023 4 Discontinu ed(Refill) Docusate Sodium 100 MG Oral Capsule (Colace)Indications :Constipation, unspecified constipation type Take 1 Capsule by mouth in the morning and 1 Capsule before bedtime. 30 Capsule 5 09/25/2023 4 Discontinu ed(Refill) Baclofen 10 MG Oral Tablet (Lioresal)Indicatio ns:Closed nondisplaced fracture of posterior wall of right acetabulum with routine healing, subsequent encounter,Pain and swelling of right knee Take 1 Tablet by mouth at bedtime as needed for Pain. 20 Tablet 09/25/2023 4 Discontinu ed(Refill) documented as of this [...] program 07/26/2017 09/30/2019 Overview: DO NOT DELETE [employer] DETECT Study: Project # [id number], Data Entry Representative: Eric Magana, PhD. SUMMARY: Goal: Establish test [...] contact study staff at ; after hours Data Entry Representative via the [facility] hospital perforating machine operator . Please contact study team before resolving/deleting from patients problem list. Study phone number: [phone]. Diagnosis changed due to Research Module. Go to Snapshot for study details. Encounter for examination fo r normal comparison and control in clinical research program 07/26/2017 10/28/2021 Overview: DO NOT DELETE - [employer] DETECT Study: Project # [id number], Data Entry Representative: Jordan Umana, MS, MPH. SUMMARY: Goal: Establish [...] contact study staff at ; after hours Data Entry Representative via the [facility] hospital perforating machine operator . - Please contact study team before resolving/deleting from patients problem list. Study phone number: [phone]. Diagnosis changed due to Research Module. Go [...] encounter Miscellaneous Notes * Telephone Encounter - Maria G Cortes [facility] - 09/27/2023 1:34 PM EDTSigned Prescriptions: Disp Refills Melatonin ER 5 MG Oral Tablet Extended Rel*30 Tab*5 Si tab an hour before bedtimeAuthorizing Provider: Ovidio PIPER User: MARIA G CORTES FerrousSulfate 325 (65 Fe) MG Oral Tablet*60 Tab*11 Sig: Take 1 Tablet by mouth in the morning and 1 Tablet before bedtime.Authorizing Provider: Ovidio PIPER User: MARIA G CORTES Docusate Sodium 100 MG Oral Capsule (Colac*60 Cap*5 Sig: Take 1 Capsule by mouth in the morning and 1 Capsule before bedtime.Authorizing Provider: Ovidio PIPER User: MARIA G CORTES Baclofen 10 MG Oral Tablet (Lioresal) 20 Tab*0 Sig: Take 1 Tablet by mouth at bedtime as needed for Pain.Authorizing Provider: Ovidio PIPER User: MARIA G CORTES * Telephone Encounter - Maria G Cortes [facility] - 09/27/2023 1:34 PM EDT Patient is switching pharmacies. Reissued balance of refills on current prescription(s) to [facility] Thank you, Maria G Cortes [facility] Clinical Pharmacist [facility] ([facility]) 09/27/23 1:34 PM [phone] * Telephone Encounter - Sean Alas morgue attendant - 09/27/2023 12:42 PM EDT Pt's Nursing Home adult caregiver requesting the [facility]. Please reroute Rx to [facility] Pending Prescriptions: Disp Refills Melatonin ER 5 MG Oral Tablet Extended Re*30 Tab*5 Si tab an hour before bedtime Ferrous Sulfate 325 (65 Fe) MG Oral Table*60 Tab*11 Sig: Take 1 Tablet by mouth in the morning and 1 Tablet before bedtime. Docusate Sodium 100 MG Oral Capsule (Cola*30 Cap*5 Sig: Take 1 Capsule by mouth in the morning and 1 Capsule before bedtime. Baclofen 10 MG Oral Tablet (Lioresal) 20 Tab*0 Sig: Take 1 Tablet by mouth at bedtime as needed for Pain. Last Visit: 09/25/2023 (in office), Visit date not found (telemedicine) 12/22/2023 If no future appointments scheduled, and last appointment is greater than a year ago, please schedule patient for a follow-up appointment Last date the medication was ordered: 09/25/2023 09/25/2023 09/25/2023 09/25/2023 Patient Phone Numbers Labs: Lab Results Component [...] 10/16/2023 9:45 AM EDT Office Visit Orthopaedics, [place] [address] [place] [facility] [place] [address] Ranjeet Chowdhury Jr., MD [address] [place] [address] 12/22/2023 2:00 PM EDT Office Visit General Internal Medicine [facility] [place] [address] [place] [address] Yamini Piper MD [address] [place] [address] 02/01/2024 10:00 AM EST Cardiac Studies Cardiology, [facility] [address] [place] [address] [facility] [address] [place] [address] Scheduled Procedures Name Priority Associated Diagnoses Date/Ti [...] this encounter Medical Devices Implanted Type Area Light Industrial Device Identifier Shelf Expiration Date Model / Serial / Lot Plate Lcp Pilon 3.5 7h 240.082 - [id number] Implanted:Qty: 1 on 09/05/2023 by Ranjeet Chowdhury Jr., MD at [place] [facility] Right: Pelvis SYNTHES 240.082 / / Hip Head V40 Taper C C 222 0 - [id number] Implanted:Qty: 1 on 09/05/2023 by Ranjeet Chowdhury Jr., MD at [place] [facility] Right: Hip TONI : ORTHOPAEDICS 07/09/2028 6260-4-122 / / [id number] Screw Selftap 3.5x36 204.836 - [id number] Implanted:Qty: 2 on 09/05/2023 by Ranjeet Chowdhury Jr., MD at [place] [facility] Right: Pelvis SYNTHES 204.836 / / Screw Selftap 3.5x20 204.820 - [id number] Implanted:Qty: 2 on 09/05/2023 by Ranjeet Chowdhury Jr., MD at [place] [facility] Right: Pelvis SYNTHES 204.820 / / Implant Hip Acetab Shell 50d - [id number] Implanted:Qty: 1 on 09/05/2023 by Ranjeet Chowdhury Jr., MD at [place] [facility] Right: Hip TONI : ORTHOPAEDICS 11/28/2026 709-04-50D / / [id number] Screw Low Profile 6.8kgr94cl - [id number] Implanted:Qty: 1 on 09/05/2023 by Ranjeet Chowdhury Jr., MD at [place] [facility] Right: Hip TONI : ORTHOPAEDICS 04/05/2028 5932-6457 / / GDBJ Screw Low Profile 6.3vhz59ag - [id number] Implanted:Qty: 1 on 09/05/2023 by Ranjeet Chowdhury Jr., MD at [place] [facility] Right: Hip TONI : ORTHOPAEDICS 04/03/2028 2518-0039 / / GBCA Hip Liner Mdm Cocr 38 D - [id number] Implanted:Qty: 1 on 09/05/2023 by Ranjeet Chowdhury Jr., MD at [place] [facility] Right: Hip TONI : ORTHOPAEDICS 07/24/2028 626-00-38D / / [id number] Implant Stem Hip Colr Std 2 - [id number] Implanted:Qty: 1 on 09/05/2023 by Ranjeet Chowdhury Jr., MD at [place] [facility] Right: Hip TONI : ORTHOPAEDICS 03/13/2027 4530-9769 / / [id number] Mdm X3 Inser Liner 22x44 - [id number] Implanted:Qty: 1 on 09/05/2023 by Ranjeet Chowdhury Jr., MD at [place] [facility] Right: Hip TONI : ORTHOPAEDICS 09/15/2027 7236-2-244 / / [id number] documented as of this encounter Visit Diagnoses Diagnosis Other insomnia 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 deficiency anemia secondary to blood loss (chronic) Constipation, unspecified constipation type Closed nondisplaced fracture of posterior wall of right acetabulum with routine healing, subsequent encounter Pain and swelling of right knee documented in this encounter Advance Directives * Full Code (Latest Code Status on File) Date Activated Date Inactivated Comments 09/05/2023 3:03 AM 09/10/2023 3:03 PM This order r eflects the patients wishes and were consensually agreed upon. Does not want trach / peg. Question Answer Comments Discussion of Advance Directives occurred with: Patient Healthcare Agents on File Name Relationship Healthcare Agent [facility] p Communication Erika Brandt [facility] (per Health Care Power of In Flight Refueling Operator document) Care Teams Promotions Director Relationship Specialty Start Date End Date Yamini Piper MD [address] [facility] [place] [address] PCP - General Internal Medicine 05/03/18 documented as of this encounter
[2023-09-28 06:32] LABS: Basophils # (auto) 0.04 K/uL (0.00-0.20); Basophils % (auto) 0.6 %; Eosinophils # (auto) 0.07 K/uL (0.00-0.50); Eosinophils % (auto) 1.1 %; Hematocrit (blood only) 23.2 % (37.0-47.0); Hemoglobin 7.6 g/dl (12.0-16.0); Immature Granulocytes # (auto) 0.03 K/uL (0.01-0.20); Immature Granulocytes % (auto) 0.5 %; Lymphocytes # (auto) 1.03 K/uL (1.20-3.40); Lymphocytes % (auto) 15.9 %; Mean Corpuscular Hemoglobin 29.3 pg (25.0-34.0); Mean Corpuscular Hgb Conc 32.8 g/dL (32.0-36.0); Mean Corpuscular Volume 89.6 fL (80.0-100.0); Mean Platelet Volume 9.8 fL (9.4-12.4); Monocytes % (auto) 7.7 %; Neutrophils # (auto) 4.79 K/uL (1.40-6.50); Neutrophils % (auto) 74.2 %; Platelet Count 138 K/uL (130-400); RDW Coefficient of Variation 21.2 % (11.5-14.5); Red Blood Count 2.59 M/uL (4.20-5.40); White Blood Count 6.46 K/ul (4.8-10.8)
[2023-09-28 06:49] LABS: Calcium 6.9 mg/dl (8.6-10.3); Creatinine Clr Calc Pharmacy 92.1 ml/min; Est GFR (African American) 108.2 ml/min; Est GFR (Non-African American) 93.4 ml/min; Magnesium 1.8 mg/dl (1.7-2.4); Phosphorus 3.7 mg/dl (2.5-4.9); Potassium 4.2 mmol/L (3.5-5.1)
[2023-09-28 07:03] LABS: Acanthocytes 1+; Anisocytosis Present; Polychromasia 1+
[2023-09-28 08:23] LABS: Estimated Average Glucose 128 mg/dl; Hemoglobin A1C 6.1 % (4.5-5.6)
[2023-09-28] MEDS: CALCIUM GLUCONATE 1,000 MG/60 ML BAG IV SCH (08:43)
--- NOTE | 2023-09-28 08:57 | Surgery Consultation ---
Date of Consultation September 28, 2023 Assessment & Plan (1) ABLA (acute blood loss anemia): Her CT images and results from yesterday personally viewed and interpreted by myself There is no localization of her GI bleed We are awaiting GI consultation as Colonoscopy and or EGD would be the first step in order to localize/stop the bleeding She is hemodynamically stable and hemoglobin is 7.6 this morning Continue to check her hemoglobin every 6 hours Continue to transfuse as needed Await GI input From a surgical standpoint, all I would be able to offer is a subtotal colectomy with end ileostomy if she becomes hemodynamically unstable Will follow (2) Acute GI bleeding: (3) Family hx of colon cancer: History of Present Illness Reason for Consultation: Lower GI bleed Attending Physician: Lesly Kim MD History of Present Illness This is a 78 yo female who was admitted yesterday with a lower GI bleed. She states that over the weekend she was feeling fatigued and this progressed over the last few days. Yesterday she started mild abdominal pain and began to have dark bloody bowel movements which brought her to the ER yesterday afternoon. She was admitted last night and 6 units of packed red blood cells since that time is still having hematochezia. She states she does have a dull generalized abdominal pain without radiation. No aggravating or relieving factors. She states her last colonoscopy was in 2020. She does have a brother with a history of colon cancer. She denies any previous abdominal surgeries. She did have her left acetabular fracture repaired 3 weeks ago and she was on 10 days of Eliquis after this. She is currently only on a baby aspirin. At the time of me seeing her, she is in the ICU hemodynamically stable on vasopressors and her heart rate is in the mid to high 90s. She is still having hematochezia. Allergies Allergy/AdvReac Type Severity Reaction Status Date / Time No Known Drug Allergies Allergy Unknown . Verified 09/27/23 22:40 Home Medications Medication Instructions Recorded Confirmed Type aspirin 81 mg chewable tablet 81 mg PO QAM 10/25/17 09/27/23 History fluticasone propionate 50 2 spray intranasal QAM Other 10/25/17 09/27/23 History mcg/actuation nasal spray,suspension (Flonase Allergy Relief) atorvastatin 40 mg tablet 40 mg PO QAM 10/04/22 09/27/23 History levothyroxine 75 mcg tablet 75 mcg PO DAILYBB 10/04/22 09/27/23 History Bacitracin Oint 1 applic topical TID 09/27/23 09/27/23 History acetaminophen 325 mg tablet 975 mg PO Q6 09/27/23 09/27/23 History (Tylenol) baclofen 10 mg tablet 10 mg PO HS PRN Muscle Spasm 09/27/23 09/27/23 History carisoprodol 350 mg tablet 175 mg PO QID PRN Muscle Spasm 09/27/23 09/27/23 History cetirizine 10 mg tablet (Zyrtec) 10 mg PO DAILY 09/27/23 09/27/23 History docusate sodium 100 mg capsule 100 mg PO BID 09/27/23 09/27/23 History ferrous sulfate 325 mg (65 mg 325 mg PO BID 09/27/23 09/27/23 History iron) tablet melatonin 5 mg tablet 5 mg PO HS 09/27/23 09/27/23 History tramadol 50 mg tablet 25 mg PO Q6 PRN Pain 09/27/23 09/27/23 History Patient History Medical History Osteoarthritis Migraine "flashing headaches" Syncope Asthma as a child/no problems now Surgical History History of open reduction and internal fixation (ORIF) procedure left tib/fib History of colonoscopy History of tooth extraction History of tonsillectomy History of cataract surgery rt eye Family History Mother Family history of diabetes mellitus Brother Family history of diabetes mellitus Other Family hx of colon cancer Social History Smoking Status: Never smoker Second Hand Exposure: No; Do You Dip or Chew Tobacco: No; Hx Alcohol Use: No Hx Substance Use: No Preferred Language: [place] Communication Ability: Effective Front End Driver Required: No Beliefs That Will Affect Care: None Current Living Situation: [facility] Current Living Situation Comment: [place] Other Information That Helps Us Care for You: No Feels Safe at Home: Yes Safety Concerns: Feels Safe At This Time Assistive Devices: Brace/Splint/Immobilizer and Hearing Aid - Bilateral Review of Systems Constitutional: no fever and no chills Eyes: no blind spots and no worsening vision Ear, Nose, Mouth, Throat: no ear pain, no tinnitus and no hearing loss Respiratory: no cough and no dyspnea Cardiovascular: no chest pain and no dyspnea on exertion Gastrointestinal: + abdominal pain, + nausea, + diarrhea/l oose stools, + blood in stools and + melena; no vomiting and no constipation Genitourinary: no dysuria and no urinary urgency Musculoskeletal: no back pain, no neck pain and no stiffness Integumentary: no rash, no skin ulcer and no erythema Neurologic: no gait abnormality and no headache(s) Psychiatric: no behavioral changes and no depression Hematologic / Lymphatic: no easy bleeding and no easy bruising Physical Exam Constitutional: WD/WN, vitals as above Eyes: PERRL, conjunctivae normal, anicteric sclerae ENMT: external ear and nose normal, oropharynx normal Neck: trachea midline, no thyromegaly Respiratory: normal respiratory effort, lungs clear to auscultation Cardiovascular: RRR, no murmur, no edema Gastrointestinal (Abdomen): Inspection/Auscultation: abdomen normal to inspection; abdomen not distended Percussion/Palpation: + abdomen tender (mild generalized) and abdomen soft; no guarding Rectal exam reveals gross hematochezia Musculoskeletal: no cyanosis or clubbing, extremities motor strength 5/5 Skin: no rashes, warm and dry Neurologic: PERRL, EOMI, accommodation nl, no face palsy, no dysarthria Psychiatric: A+Ox3, euthymic affect Results & Data Vital Signs (Past 12 Hours) Vital Signs Temp Pulse Pulse Resp BP BP Pulse Ox 09/28/23 07:47 36.8 C 97 H 18 112/66 97 09/28/23 07:17 36.8 C 84 16 120/62 95 09/28/23 07:02 37.1 C 95 H 15 104/63 97 09/28/23 06:46 36.8 C 92 H 15 120/66 96 09/28/23 06:03 99 H 21 99 09/28/23 06:00 115/49 L 09/28/23 05:54 95 H 25 H 98 09/28/23 05:51 86 18 98 09/28/23 05:45 37.0 C 88 15 115/59 L 95 09/28/23 05:30 92 H 18 98 09/28/23 05:15 92 H 16 97 09/28/23 05:15 115/60 09/28/23 05:00 109/64 09/28/23 05:00 109/64 09/28/23 05:00 95 H 19 98 09/28/23 04:51 89 16 96 09/28/23 04:45 110/58 L 09/28/23 04:40 37.1 C 87 15 96/61 L 95 09/28/23 04:33 92 H 16 96 09/28/23 04:30 96/61 L 09/28/23 04:30 96/61 L 09/28/23 04:30 96/61 L 09/28/23 04:18 96 H 17 96 09/28/23 04:15 102/58 L 09/28/23 04:15 94 H 15 98 09/28/23 04:10 37.2 C 94 H 15 102/58 L 98 09/28/23 04:06 92 H 19 96 09/28/23 04:00 109/58 L 09/28/23 04:00 109/58 L 09/28/23 04:00 36.8 C 09/28/23 03:55 36.8 C 90 15 102/60 97 09/28/23 03:51 90 16 97 09/28/23 03:45 90 18 96 09/28/23 03:45 102/60 09/28/23 03:39 92 H 18 96 09/28/23 03:39 37.1 C 97 H 15 109/58 L 97 09/28/23 03:26 37.1 C 93 H 15 107/70 96 09/28/23 03:25 37.1 C 93 H 15 107/70 96 09/28/23 03:15 107/70 09/28/23 02:53 37.0 C 92 H 15 118/81 97 09/28/23 02:48 93 H 17 99 09/28/23 02:45 118/81 09/28/23 02:45 118/81 09/28/23 02:45 118/81 09/28/23 02:42 94 H 17 98 09/28/23 02:38 37.0 C 92 H 15 101/62 98 09/28/23 02:23 37.0 C 92 H 15 107/67 99 09/28/23 02:15 91 H 19 97 09/28/23 02:15 107/67 09/28/23 02:15 107/67 09/28/23 02:13 37.0 C 91 H 15 107/67 97 09/28/23 02:12 94 H 20 98 09/28/23 02:00 114/62 09/28/23 02:00 114/62 09/28/23 01:57 92 H 15 98 09/28/23 01:51 92 H 15 98 09/28/23 01:45 112/63 09/28/23 01:45 112/63 09/28/23 01:43 37.0 C 91 H 15 112/63 98 09/28/23 01:33 94 H 17 97 09/28/23 01:30 105/57 L 09/28/23 01:28 37.1 C 92 H 16 105/57 L 97 09/28/23 01:11 36.9 C 96 H 16 117/61 99 09/28/23 01:03 93 H 17 95 09/28/23 01:00 112/60 09/28/23 01:00 112/60 09/28/23 01:00 112/60 09/28/23 00:48 93 H 19 95 09/28/23 00:45 94/54 L 09/28/23 00:45 94/54 L 09/28/23 00:45 94/54 L 09/28/23 00:45 92 H 16 96 09/28/23 00:18 37.1 C 95 H 18 107/52 L 98 09/28/23 00:16 09/28/23 00:09 96 H 16 98 09/28/23 00:01 107/52 L 09/28/23 00:01 107/52 L 09/28/23 00:00 107 H 24 78 L 09/28/23 00:00 95 H 09/28/23 00:00 37.1 C 95 H 18 107/52 L 98 09/27/23 23:58 106/57 L 09/27/23 23:58 106/57 L 09/27/23 23:58 106/57 L 09/27/23 23:57 100 H 20 09/27/23 23:37 09/27/23 23:30 113/63 09/27/23 23:27 95 H 21 99 09/27/23 23:20 111/59 L 09/27/23 23:20 111/59 L 09/27/23 23:20 111/59 L 09/27/23 23:18 95 H 16 99 09/27/23 23:10 133/68 09/27/23 23:10 133/68 09/27/23 23:08 36.9 C 101 H 17 117/66 99 09/27/23 23:04 102/64 09/27/23 23:02 37.1 C 103 H 20 102/64 99 09/27/23 23:00 98/60 L 09/27/23 22:58 37.1 C 99 H 24 104/64 98 09/27/23 22:50 104/49 L 09/27/23 22:45 105 H 20 100 09/27/23 22:42 36.8 C 102 H 21 133/68 100 09/27/23 22:41 109/51 L 09/27/23 22:41 109/51 L 09/27/23 22:41 109/51 L 09/27/23 22:38 37.6 C H 96 H 23 114/58 L 95 09/27/23 22:30 114/58 L 09/27/23 22:27 84 24 99 09/27/23 22:12 115 H 21 98 09/27/23 22:12 91/46 L 09/27/23 22:12 91/46 L 09/27/23 22:12 37.3 C 115 H 19 91/46 L 98 09/27/23 22:00 108 H 17 96 09/27/23 22:00 100/51 L 09/27/23 22:00 100/51 L 09/27/23 22:00 100/51 L 09/27/23 21:58 103/47 L 09/27/23 21:57 37.5 C 108 H 19 103/47 L 97 09/27/23 21:48 107 H 16 96 09/27/23 21:39 105 H 13 96 09/27/23 21:39 98/48 L 09/27/23 21:38 37.6 C H 105 H 13 98/48 L 96 09/27/23 21:30 114/49 L 09/27/23 21:30 114/49 L 09/27/23 21:20 103 H 15 113/53 L 96 09/27/23 21:18 104 H 25 H 97 09/27/23 21:03 102 H 19 96 09/27/23 21:00 104/50 L 09/27/23 21:00 104/50 L Pulse Ox O2 Del Method O2 Del Method 09/28/23 07:47 09/28/23 07:17 09/28/23 07:02 09/28/23 06:46 09/28/23 06:03 09/28/23 06:00 09/28/23 05:54 09/28/23 05:51 09/28/23 05:45 09/28/23 05:30 09/28/23 05:15 09/28/23 05:15 09/28/23 05:00 09/28/23 05:00 09/28/23 05:00 09/28/23 04:51 09/28/23 04:45 09/28/23 04:40 09/28/23 04:33 09/28/23 04:30 09/28/23 04:30 09/28/23 04:30 09/28/23 04:18 09/28/23 04:15 09/28/23 04:15 09/28/23 04:10 09/28/23 04:06 09/28/23 04:00 09/28/23 04:00 09/28/23 04:00 09/28/23 03:55 09/28/23 03:51 09/28/23 03:45 09/28/23 03:45 09/28/23 03:39 09/28/23 03:39 09/28/23 03:26 09/28/23 03:25 09/28/23 03:15 09/28/23 02:53 09/28/23 02:48 09/28/23 02:45 09/28/23 02:45 09/28/23 02:45 09/28/23 02:42 09/28/23 02:38 09/28/23 02:23 09/28/23 02:15 09/28/23 02:15 09/28/23 02:15 09/28/23 02:13 09/28/23 02:12 09/28/23 02:00 09/28/23 02:00 09/28/23 01:57 09/28/23 01:51 09/28/23 01:45 09/28/23 01:45 09/28/23 01:43 09/28/23 01:33 09/28/23 01:30 09/28/23 01:28 09/28/23 01:11 09/28/23 01:03 09/28/23 01:00 09/28/23 01:00 09/28/23 01:00 09/28/23 00:48 09/28/23 00:45 09/28/23 00:45 09/28/23 00:45 09/28/23 00:45 09/28/23 00:18 Room Air 09/28/23 00:16 97 Room Air 09/28/23 00:09 09/28/23 00:01 09/28/23 00:01 09/28/23 00:00 09/28/23 00:00 09/28/23 00:00 Room Air 09/27/23 23:58 09/27/23 23:58 09/27/23 23:58 09/27/23 23:57 09/27/23 23:37 Room Air 09/27/23 23:30 09/27/23 23:27 09/27/23 23:20 09/27/23 23:20 09/27/23 23:20 09/27/23 23:18 09/27/23 23:10 09/27/23 23:10 09/27/23 23:08 09/27/23 23:04 09/27/23 23:02 09/27/23 23:00 09/27/23 22:58 09/27/23 22:50 09/27/23 22:45 09/27/23 22:42 Room Air 09/27/23 22:41 09/27/23 22:41 09/27/23 22:41 09/27/23 22:38 Room Air 09/27/23 22:30 09/27/23 22:27 09/27/23 22:12 09/27/23 22:12 09/27/23 22:12 09/27/23 22:12 09/27/23 22:00 09/27/23 22:00 09/27/23 22:00 09/27/23 22:00 09/27/23 21:58 09/27/23 21:57 09/27/23 21:48 09/27/23 21:39 09/27/23 21:39 09/27/23 21:38 09/27/23 21:30 09/27/23 21:30 09/27/23 21:20 Room Air 09/27/23 21:18 09/27/23 21:03 09/27/23 21:00 09/27/23 21:00 PG Care Time/CCT Total # of Minutes Spent Total Time Spent with Patient: Total time spent is greater than 50% in coordination of care (as documented) at patient's floor/unit and/or counseling patient: Coding Level of Care Code 46127 INT INP/OBS CARE 3/75MIN Diagnoses ABLA (acute blood loss anemia) D62 Acute GI bleeding K92.2 Family hx of colon cancer Z80.0
[2023-09-28] MEDS: fentaNYL citrate PF 100 MCG/2 ML VIAL IV ONE (09:19)
[2023-09-28] MEDS: fentaNYL citrate PF 100 MCG/2 ML VIAL ONE (09:19)
[2023-09-28] MEDS: fentaNYL BOLUS from BAG IV ONE (09:20)
--- NOTE | 2023-09-28 09:57 | Gastrointestinal Consultation ---
Date of Consultation September 28, 2023 Assessment & Plan (1) Acute GI bleeding: Pleasant woman with UGI bleeding after hip replacement. Plan EGD. Procedure and risks discussed. She agrees History of Present Illness Reason for Consultation: bleeding Attending Physician: Lesly Kim MD History of Present Illness 78 year old female recently status post hip replacement who started having diarrhea of black stools yesterday. They evolved to red stools and she came to ER. She denies NSAID usage. She was on a short course of Eliquis after her surgery. She doesn't have much in the way of abdominal pain. She has never had anything like this before. she has not had an EGD in the past. Last colonoscopy was in 2020. Admit hemoglobin was below 5 and is now 7.6 after five units. Allergies Allergy/AdvReac Type Severity Reaction Status Date / Time No Known Drug Allergies Allergy Unknown . Verified 09/27/23 22:40 Home Medications Medication Instructions Recorded Confirmed Type aspirin 81 mg chewable tablet 81 mg PO QAM 10/25/17 09/27/23 History fluticasone propionate 50 2 spray intranasal QAM Other 10/25/17 09/27/23 History mcg/actuation nasal spray,suspension (Flonase Allergy Relief) atorvastatin 40 mg tablet 40 mg PO QAM 10/04/22 09/27/23 History levothyroxine 75 mcg tablet 75 mcg PO DAILYBB 10/04/22 09/27/23 History Bacitracin Oint 1 applic topical TID 09/27/23 09/27/23 History acetaminophen 325 mg tablet 975 mg PO Q6 09/27/23 09/27/23 History (Tylenol) baclofen 10 mg tablet 10 mg PO HS PRN Muscle Spasm 09/27/23 09/27/23 History carisoprodol 350 mg tablet 175 mg PO QID PRN Muscle Spasm 09/27/23 09/27/23 History cetirizine 10 mg tablet (Zyrtec) 10 mg PO DAILY 09/27/23 09/27/23 History docusate sodium 100 mg capsule 100 mg PO BID 09/27/23 09/27/23 History ferrous sulfate 325 mg (65 mg 325 mg PO BID 09/27/23 09/27/23 History iron) tablet melatonin 5 mg tablet 5 mg PO HS 09/27/23 09/27/23 History tramadol 50 mg tablet 25 mg PO Q6 PRN Pain 09/27/23 09/27/23 History Patient History Medical History Osteoarthritis Migraine "flashing headaches" Syncope Asthma as a child/no problems now Surgical History History of open reduction and internal fixation (ORIF) procedure left tib/fib History of colonoscopy History of tooth extraction History of tonsillectomy History of cataract surgery rt eye Family History Mother Family history of diabetes mellitus Brother Family history of diabetes mellitus Other Family hx of colon cancer Social History Smoking Status: Never smoker Second Hand Exposure: No; Do You Dip or Chew Tobacco: No; Hx Alcohol Use: No Hx Substance Use: No Preferred Language: Pakistani Communication Ability: Effective Breaker Operator Required: No Beliefs That Will Affect Care: None Current Living Situation: [facility] Current Living Situation Comment: [place] Other Information That Helps Us Care for You: No Feels Safe at Home: Yes Safety Concerns: Feels Safe At This Time Assistive Devices: Brace/Splint/Immobilizer and Hearing Aid - Bilateral Review of Systems Review of Systems: All systems reviewed & are unremarkable except as noted in HPI & below Physical Exam Constitutional: WD/WN, vitals as above Neck: trachea midline, no thyromegaly Respiratory: normal respiratory effort, lungs clear to auscultation Cardiovascular: RRR, no murmur, no edema Gastrointestinal (Abdomen): Percussion/Palpation: + abdomen tender (mildly in midepigastrium) and abdomen soft Results & Data Vital Signs (Past 12 Hours) Vital Signs Temp Pulse Pulse Resp BP BP Pulse Ox 09/28/23 08:47 36.8 C 91 H 16 125/67 95 09/28/23 07:47 36.8 C 97 H 18 112/66 97 09/28/23 07:17 36.8 C 84 16 120/62 95 09/28/23 07:02 37.1 C 95 H 15 104/63 97 09/28/23 06:46 36.8 C 92 H 15 120/66 96 09/28/23 06:03 99 H 21 99 09/28/23 06:00 115/49 L 09/28/23 05:54 95 H 25 H 98 09/28/23 05:51 86 18 98 09/28/23 05:45 37.0 C 88 15 115/59 L 95 09/28/23 05:30 92 H 18 98 09/28/23 05:15 92 H 16 97 09/28/23 05:15 115/60 09/28/23 05:00 109/64 09/28/23 05:00 109/64 09/28/23 05:00 95 H 19 98 09/28/23 04:51 89 16 96 09/28/23 04:45 110/58 L 09/28/23 04:40 37.1 C 87 15 96/61 L 95 09/28/23 04:33 92 H 16 96 09/28/23 04:30 96/61 L 09/28/23 04:30 96/61 L 09/28/23 04:30 96/61 L 09/28/23 04:18 96 H 17 96 09/28/23 04:15 102/58 L 09/28/23 04:15 94 H 15 98 09/28/23 04:10 37.2 C 94 H 15 102/58 L 98 09/28/23 04:06 92 H 19 96 09/28/23 04:00 109/58 L 09/28/23 04:00 109/58 L 09/28/23 04:00 36.8 C 09/28/23 03:55 36.8 C 90 15 102/60 97 09/28/23 03:51 90 16 97 09/28/23 03:45 90 18 96 09/28/23 03:45 102/60 09/28/23 03:39 92 H 18 96 09/28/23 03:39 37.1 C 97 H 15 109/58 L 97 09/28/23 03:26 37.1 C 93 H 15 107/70 96 09/28/23 03:25 37.1 C 93 H 15 107/70 96 09/28/23 03:15 107/70 09/28/23 02:53 37.0 C 92 H 15 118/81 97 09/28/23 02:48 93 H 17 99 08/01/24 02:45 118/81 09/28/23 02:45 118/81 09/28/23 02:45 118/81 09/28/23 02:42 94 H 17 98 09/28/23 02:38 37.0 C 92 H 15 101/62 98 09/28/23 02:23 37.0 C 92 H 15 107/67 99 09/28/23 02:15 91 H 19 97 09/28/23 02:15 107/67 09/28/23 02:15 107/67 09/28/23 02:13 37.0 C 91 H 15 107/67 97 09/28/23 02:12 94 H 20 98 09/28/23 02:00 114/62 09/28/23 02:00 114/62 09/28/23 01:57 92 H 15 98 09/28/23 01:51 92 H 15 98 09/28/23 01:45 112/63 09/28/23 01:45 112/63 09/28/23 01:43 37.0 C 91 H 15 112/63 98 09/28/23 01:33 94 H 17 97 09/28/23 01:30 105/57 L 09/28/23 01:28 37.1 C 92 H 16 105/57 L 97 09/28/23 01:11 36.9 C 96 H 16 117/61 99 09/28/23 01:03 93 H 17 95 09/28/23 01:00 112/60 09/28/23 01:00 112/60 09/28/23 01:00 112/60 09/28/23 00:48 93 H 19 95 09/28/23 00:45 94/54 L 09/28/23 00:45 94/54 L 09/28/23 00:45 94/54 L 09/28/23 00:45 92 H 16 96 09/28/23 00:18 37.1 C 95 H 18 107/52 L 98 09/28/23 00:16 09/28/23 00:09 96 H 16 98 09/28/23 00:01 107/52 L 09/28/23 00:01 107/52 L 09/28/23 00:00 107 H 24 78 L 09/28/23 00:00 95 H 09/28/23 00:00 37.1 C 95 H 18 107/52 L 98 09/27/23 23:58 106/57 L 09/27/23 23:58 106/57 L 09/27/23 23:58 106/57 L 09/27/23 23:57 100 H 20 09/27/23 23:37 09/27/23 23:30 113/63 09/27/23 23:27 95 H 21 99 09/27/23 23:20 111/59 L 09/27/23 23:20 111/59 L 09/27/23 23:20 111/59 L 09/27/23 23:18 95 H 16 99 09/27/23 23:10 133/68 09/27/23 23:10 133/68 09/27/23 23:08 36.9 C 101 H 17 117/66 99 09/27/23 23:04 102/64 09/27/23 23:02 37.1 C 103 H 20 102/64 99 09/27/23 23:00 98/60 L 09/27/23 22:58 37.1 C 99 H 24 104/64 98 09/27/23 22:50 104/49 L 09/27/23 22:45 105 H 20 100 09/27/23 22:42 36.8 C 102 H 21 133/68 100 09/27/23 22:41 109/51 L 09/27/23 22:41 109/51 L 09/27/23 22:41 109/51 L 09/27/23 22:38 37.6 C H 96 H 23 114/58 L 95 09/27/23 22:30 114/58 L 09/27/23 22:27 84 24 99 09/27/23 22:12 115 H 21 98 09/27/23 22:12 91/46 L 09/27/23 22:12 91/46 L 09/27/23 22:12 37.3 C 115 H 19 91/46 L 98 09/27/23 22:00 108 H 17 96 09/27/23 22:00 100/51 L 09/27/23 22:00 100/51 L 09/27/23 22:00 100/51 L 09/27/23 21:58 103/47 L 09/27/23 21:57 37.5 C 108 H 19 103/47 L 97 Pulse Ox O2 Del Method O2 Del Method 09/28/23 08:47 09/28/23 07:47 09/28/23 07:17 09/28/23 07:02 09/28/23 06:46 09/28/23 06:03 09/28/23 06:00 09/28/23 05:54 09/28/23 05:51 09/28/23 05:45 09/28/23 05:30 09/28/23 05:15 09/28/23 05:15 09/28/23 05:00 09/28/23 05:00 09/28/23 05:00 09/28/23 04:51 09/28/23 04:45 09/28/23 04:40 09/28/23 04:33 09/28/23 04:30 09/28/23 04:30 09/28/23 04:30 09/28/23 04:18 09/28/23 04:15 09/28/23 04:15 09/28/23 04:10 09/28/23 04:06 09/28/23 04:00 09/28/23 04:00 09/28/23 04:00 09/28/23 03:55 09/28/23 03:51 09/28/23 03:45 09/28/23 03:45 09/28/23 03:39 09/28/23 03:39 09/28/23 03:26 09/28/23 03:25 09/28/23 03:15 09/28/23 02:53 09/28/23 02:48 09/28/23 02:45 09/28/23 02:45 09/28/23 02:45 09/28/23 02:42 09/28/23 02:38 09/28/23 02:23 09/28/23 02:15 09/28/23 02:15 09/28/23 02:15 09/28/23 02:13 09/28/23 02:12 09/28/23 02:00 09/28/23 02:00 09/28/23 01:57 09/28/23 01:51 09/28/23 01:45 09/28/23 01:45 09/28/23 01:43 09/28/23 01:33 09/28/23 01:30 09/28/23 01:28 09/28/23 01:11 09/28/23 01:03 09/28/23 01:00 09/28/23 01:00 09/28/23 01:00 09/28/23 00:48 09/28/23 00:45 09/28/23 00:45 09/28/23 00:45 09/28/23 00:45 09/28/23 00:18 Room Air 09/28/23 00:16 97 Room Air 09/28/23 00:09 09/28/23 00:01 09/28/23 00:01 09/28/23 00:00 09/28/23 00:00 09/28/23 00:00 Room Air 09/27/23 23:58 09/27/23 23:58 09/27/23 23:58 09/27/23 23:57 09/27/23 23:37 Room Air 09/27/23 23:30 09/27/23 23:27 09/27/23 23:20 09/27/23 23:20 09/27/23 23:20 09/27/23 23:18 09/27/23 23:10 09/27/23 23:10 09/27/23 23:08 09/27/23 23:04 09/27/23 23:02 09/27/23 23:00 09/27/23 22:58 09/27/23 22:50 09/27/23 22:45 09/27/23 22:42 Room Air 09/27/23 22:41 09/27/23 22:41 09/27/23 22:41 09/27/23 22:38 Room Air 09/27/23 22:30 09/27/23 22:27 09/27/23 22:12 09/27/23 22:12 09/27/23 22:12 09/27/23 22:12 09/27/23 22:00 09/27/23 22:00 09/27/23 22:00 09/27/23 22:00 09/27/23 21:58 09/27/23 21:57 Laboratory Results 09/28/23 09/28/23 09/28/23 Range/Units 05:50 00:34 00:00 WBC 6.46 8.06 (4.8-10.8) K/ul RBC 2.59 L 2.19 L (4.20-5.40) M/uL Hgb 7.6 L 6.8 L* (12.0-16.0) g/dl Hct 23.2 L 20.5 L* (37.0-47.0) % MCV 89.6 93.6 D (80.0-100.0) fL MCH 29.3 31.1 (25.0-34.0) pg MCHC 32.8 33.2 (32.0-36.0) g/dL RDW Std Deviation 65.0 H 63.6 H (36.4-46.3) fL RDW Coeff of Anitha 21.2 H 19.1 H (11.5-14.5) % Plt Count 138 170 (130-400) K/uL MPV 9.8 10.1 (9.4-12.4) fL Immature Gran % (Auto) 0.5 % Neut % (Auto) 74.2 % Lymph % (Auto) 15.9 % [place] % (Auto) 7.7 % Eos % (Auto) 1.1 % Baso % (Auto) 0.6 % Neut # (Auto) 4.79 (1.40-6.50) K/uL Lymph # (Auto) 1.03 L (1.20-3.40) K/uL [place] # (Auto) 0.50 (0.11-0.59) K/uL Eos # (Auto) 0.07 (0.00-0.50) K/uL Baso # (Auto) 0.04 (0.00-0.20) K/uL Immature Gran # (Auto) 0.03 (0.01-0.20) K/uL Polychromasia 1+ Anisocytosis Present Ovalocytes Acanthocytes (Spur) 1+ PT 11.4 (9.0-12.0) Seconds INR 1.1 (0.9-1.1) APTT (21-31) Seconds PTT Ratio Fibrinogen 197 (184-400) mg/dl Sodium 140 140 (136-145) mmol/L Potassium 4.2 4.2 (3.5-5.1) mmol/L Chloride 116 H 115 H (98-107) mmol/L Carbon Dioxide 22 20 L (21-32) mmol/L Anion Gap 2 L 5 (3-11) BUN 27 H 27 H (6-23) mg/dl Creatinine 0.50 L 0.53 L (0.6-1.2) mg/dl Est Cr Clr Drug Dosing 92.1 83.6 ml/min Est GFR ( Amer) 108.2 106.1 ml/min Est GFR (Non-Af Amer) 93.4 91.6 ml/min BUN/Creatinine Ratio 54.0 H 50.9 H (10-20) Glucose 105 H 127 H (70-99(Fasting)) mg/dl Estimat Average Glucose 128 mg/dl Hemoglobin A1c 6.1 H (4.5-5.6) % Lactate 1.2 (0.4-2.0) mmol/L Calcium 6.9 L 7.3 L (8.6-10.3) mg/dl Phosphorus 3.7 (2.5-4.9) mg/dl Magnesium 1.8 (1.7-2.4) mg/dl Total Bilirubin (0.2-1.0) mg/dl AST (13-39) U/L ALT (7-52) U/L Alkaline Phosphatase (34-104) U/L Troponin I High Sens (0-14) pg/ml Total Protein (6.0-8.3) gm/dl Albumin (3.4-5.0) gm/dl Globulin (2.5-4.0) gm/dl Albumin/Globulin Ratio (0.9-2) Nasal Screen MRSA (PCR) Negative (Negative) POC Stool Occult Blood (Negative) Stl C. cayetanensis PCR (NotDetected) Stool Rotavirus A PCR (NotDetected) Stl Adenov F 40/41 PCR (NotDetected) Stool Astrovirus (PCR) (NotDetected) Stool Campylobacter PCR (NotDetected) Stl C. diff Tox B Gene (Neg) Stool Cryptosporidium PCR (NotDetected) Stl E.coli Shiga Tox PCR (NotDetected) Stl Enterotoxigenic E PCR (NotDetected) Stool EPEC (PCR) (NotDetected) Stool EAEC (PCR) (NotDetected) Stl E. histolytica PCR (NotDetected) Stool Giardia Lamblia PCR (NotDetected) Stool Salmonella PCR (NotDetected) Stool Sapovirus (PCR) (NotDetected) Stl P. shigelloides PCR (NotDetected) Stl Shigella/EIEC PCR (NotDetected) St Y.enterocolitica PCR (NotDetected) Stool Vibrio (PCR) (NotDetected) Stl Vibrio cholerae PCR (NotDetected) Stl Norovirus GI/GII PCR (NotDetected) SARS-CoV-2, RNA, NAAT (NEGATIVE) Blood Type Blood Type Recheck Antibody Screen Antibody Identification Antibody ID Comment Antigen Identification Crossmatch 09/27/23 09/27/23 09/27/23 Range/Units 22:33 19:32 19:25 WBC (4.8-10.8) K/ul RBC (4.20-5.40) M/uL Hgb 4.8 L* (12.0-16.0) g/dl Hct 15.7 L* (37.0-47.0) % MCV (80.0-100.0) fL MCH (25.0-34.0) pg MCHC (32.0-36.0) g/dL RDW Std Deviation (36.4-46.3) fL RDW Coeff of Anitha (11.5-14.5) % Plt Count (130-400) K/uL MPV (9.4-12.4) fL Immature Gran % (Auto) % Neut % (Auto) % Lymph % (Auto) % [place] % (Auto) % Eos % (Auto) % Baso % (Auto) % Neut # (Auto) (1.40-6.50) K/uL Lymph # (Auto) (1.20-3.40) K/uL [place] # (Auto) (0.11-0.59) K/uL Eos # (Auto) (0.00-0.50) K/uL Baso # (Auto) (0.00-0.20) K/uL Immature Gran # (Auto) (0.01-0.20) K/uL Polychromasia Anisocytosis Ovalocytes Acanthocytes (Spur) PT (9.0-12.0) Seconds INR (0.9-1.1) APTT (21-31) Seconds PTT Ratio Fibrinogen (184-400) mg/dl Sodium (136-145) mmol/L Potassium (3.5-5.1) mmol/L Chloride (98-107) mmol/L Carbon Dioxide (21-32) mmol/L Anion Gap (3-11) BUN (6-23) mg/dl Creatinine (0.6-1.2) mg/dl Est Cr Clr Drug Dosing ml/min Est GFR ( Amer) ml/min Est GFR (Non-Af Amer) ml/min BUN/Creatinine Ratio (10-20) Glucose (70-99(Fasting)) mg/dl Estimat Average Glucose mg/dl Hemoglobin A1c (4.5-5.6) % Lactate (0.4-2.0) mmol/L Calcium (8.6-10.3) mg/dl Phosphorus (2.5-4.9) mg/dl Magnesium (1.7-2.4) mg/dl Total Bilirubin (0.2-1.0) mg/dl AST (13-39) U/L ALT (7-52) U/L Alkaline Phosphatase (34-104) U/L Troponin I High Sens (0-14) pg/ml Total Protein (6.0-8.3) gm/dl Albumin (3.4-5.0) gm/dl Globulin (2.5-4.0) gm/dl Albumin/Globulin Ratio (0.9-2) Nasal Screen MRSA (PCR) (Negative) POC Stool Occult Blood Positive A (Negative) Stl C. cayetanensis PCR Not Detected (NotDetected) Stool Rotavirus A PCR Not Detected (NotDetected) Stl Adenov F 40/41 PCR Not Detected (NotDetected) Stool Astrovirus (PCR) Not Detected (NotDetected) Stool Campylobacter PCR Not Detected (NotDetected) Stl C. diff Tox B Gene Negative Cdiff Gene (Neg) Stool Cryptosporidium PCR Not Detected (NotDetected) Stl E.coli Shiga Tox PCR Not Detected (NotDetected) Stl Enterotoxigenic E PCR Not Detected (NotDetected) Stool EPEC (PCR) Not Detected (NotDetected) Stool EAEC (PCR) Not Detected (NotDetected) Stl E. histolytica PCR Not Detected (NotDetected) Stool Giardia Lamblia PCR Not Detected (NotDetected) Stool Salmonella PCR Not Detected (NotDetected) Stool Sapovirus (PCR) Not Detected (NotDetected) Stl P. shigelloides PCR Not Detected (NotDetected) Stl Shigella/EIEC PCR Not Detected (NotDetected) St Y.enterocolitica PCR Not Detected (NotDetected) Stool Vibrio (PCR) Not Detected (NotDetected) Stl Vibrio cholerae PCR Not Detected (NotDetected) Stl Norovirus GI/GII PCR Not Detected (NotDetected) SARS-CoV-2, RNA, NAAT (NEGATIVE) Blood Type Blood Type Recheck Antibody Screen Antibody Identification Antibody ID Comment Antigen Identification Crossmatch 09/27/23 09/27/23 09/27/23 Range/Units 16:49 16:35 16:01 WBC (4.8-10.8) K/ul RBC (4.20-5.40) M/uL Hgb (12.0-16.0) g/dl Hct (37.0-47.0) % MCV (80.0-100.0) fL MCH (25.0-34.0) pg MCHC (32.0-36.0) g/dL RDW Std Deviation (36.4-46.3) fL RDW Coeff of Anitha (11.5-14.5) % Plt Count (130-400) K/uL MPV (9.4-12.4) fL Immature Gran % (Auto) % Neut % (Auto) % Lymph % (Auto) % [place] % (Auto) % Eos % (Auto) % Baso % (Auto) % Neut # (Auto) (1.40-6.50) K/uL Lymph # (Auto) (1.20-3.40) K/uL [place] # (Auto) (0.11-0.59) K/uL Eos # (Auto) (0.00-0.50) K/uL Baso # (Auto) (0.00-0.20) K/uL Immature Gran # (Auto) (0.01-0.20) K/uL Polychromasia Anisocytosis Ovalocytes Acanthocytes (Spur) PT (9.0-12.0) Seconds INR (0.9-1.1) APTT (21-31) Seconds PTT Ratio Fibrinogen (184-400) mg/dl Sodium (136-145) mmol/L Potassium (3.5-5.1) mmol/L Chloride (98-107) mmol/L Carbon Dioxide (21-32) mmol/L Anion Gap (3-11) BUN (6-23) mg/dl Creatinine (0.6-1.2) mg/dl Est Cr Clr Drug Dosing ml/min Est GFR ( Amer) ml/min Est GFR (Non-Af Amer) ml/min BUN/Creatinine Ratio (10-20) Glucose (70-99(Fasting)) mg/dl Estimat Average Glucose mg/dl Hemoglobin A1c (4.5-5.6) % Lactate (0.4-2.0) mmol/L Calcium (8.6-10.3) mg/dl Phosphorus (2.5-4.9) mg/dl Magnesium (1.7-2.4) mg/dl Total Bilirubin (0.2-1.0) mg/dl AST (13-39) U/L ALT (7-52) U/L Alkaline Phosphatase (34-104) U/L Troponin I High Sens (0-14) pg/ml Total Protein (6.0-8.3) gm/dl Albumin (3.4-5.0) gm/dl Globulin (2.5-4.0) gm/dl Albumin/Globulin Ratio (0.9-2) Nasal Screen MRSA (PCR) (Negative) POC Stool Occult Blood (Negative) Stl C. cayetanensis PCR (NotDetected) Stool Rotavirus A PCR (NotDetected) Stl Adenov F 40/41 PCR (NotDetected) Stool Astrovirus (PCR) (NotDetected) Stool Campylobacter PCR (NotDetected) Stl C. diff Tox B Gene (Neg) Stool Cryptosporidium PCR (NotDetected) Stl E.coli Shiga Tox PCR (NotDetected) Stl Enterotoxigenic E PCR (NotDetected) Stool EPEC (PCR) (NotDetected) Stool EAEC (PCR) (NotDetected) Stl E. histolytica PCR (NotDetected) Stool Giardia Lamblia PCR (NotDetected) Stool Salmonella PCR (NotDetected) Stool Sapovirus (PCR) (NotDetected) Stl P. shigelloides PCR (NotDetected) Stl Shigella/EIEC PCR (NotDetected) St Y.enterocolitica PCR (NotDetected) Stool Vibrio (PCR) (NotDetected) Stl Vibrio cholerae PCR (NotDetected) Stl Norovirus GI/GII PCR (NotDetected) SARS-CoV-2, RNA, NAAT NEGATIVE (NEGATIVE) Blood Type O Positive Blood Type Recheck O Positive Antibody Screen POSITIVE A Antibody Identification Anti-Jka Antibody ID Comment Antigen Identification Jka Antigen - NEGATIVE Crossmatch See Detail 09/27/23 Range/Units 15:30 WBC 6.40 (4.8-10.8) K/ul RBC 2.02 L (4.20-5.40) M/uL Hgb 6.4 L* (12.0-16.0) g/dl Hct 20.5 L* (37.0-47.0) % MCV 101.5 H (80.0-100.0) fL MCH 31.7 (25.0-34.0) pg MCHC 31.2 L (32.0-36.0) g/dL RDW Std Deviation 68.7 H (36.4-46.3) fL RDW Coeff of Anitha 18.9 H (11.5-14.5) % Plt Count 254 (130-400) K/uL MPV 10.0 (9.4-12.4) fL Immature Gran % (Auto) 0.5 % Neut % (Auto) 75.4 % Lymph % (Auto) 14.8 % [place] % (Auto) 7.0 % Eos % (Auto) 1.7 % Baso % (Auto) 0.6 % Neut # (Auto) 4.82 (1.40-6.50) K/uL Lymph # (Auto) 0.95 L (1.20-3.40) K/uL [place] # (Auto) 0.45 (0.11-0.59) K/uL Eos # (Auto) 0.11 (0.00-0.50) K/uL Baso # (Auto) 0.04 (0.00-0.20) K/uL Immature Gran # (Auto) 0.03 (0.01-0.20) K/uL Polychromasia 1+ Anisocytosis Present Ovalocytes 1+ Acanthocytes (Spur) PT 10.3 (9.0-12.0) Seconds INR 0.9 (0.9-1.1) APTT < 20 L (21-31) Seconds PTT Ratio 0.7 Fibrinogen (184-400) mg/dl Sodium 138 (136-145) mmol/L Potassium 4.0 (3.5-5.1) mmol/L Chloride 106 (98-107) mmol/L Carbon Dioxide 24 (21-32) mmol/L Anion Gap 8 (3-11) BUN 22 (6-23) mg/dl Creatinine 0.62 (0.6-1.2) mg/dl Est Cr Clr Drug Dosing 73.9 ml/min Est GFR ( Amer) 100.8 ml/min Est GFR (Non-Af Amer) 87.0 ml/min BUN/Creatinine Ratio 35.5 H (10-20) Glucose 102 H (70-99(Fasting)) mg/dl Estimat Average Glucose mg/dl Hemoglobin A1c (4.5-5.6) % Lactate (0.4-2.0) mmol/L Calcium 8.8 (8.6-10.3) mg/dl Phosphorus (2.5-4.9) mg/dl Magnesium (1.7-2.4) mg/dl Total Bilirubin 0.4 (0.2-1.0) mg/dl AST 24 (13-39) U/L ALT 23 (7-52) U/L Alkaline Phosphatase 117 H (34-104) U/L Troponin I High Sens 3.0 (0-14) pg/ml Total Protein 6.1 (6.0-8.3) gm/dl Albumin 3.8 (3.4-5.0) gm/dl Globulin 2.3 L (2.5-4.0) gm/dl Albumin/Globulin Ratio 1.7 (0.9-2) Nasal Screen MRSA (PCR) (Negative) POC Stool Occult Blood (Negative) Stl C. cayetanensis PCR (NotDetected) Stool Rotavirus A PCR (NotDetected) Stl Adenov F 40/41 PCR (NotDetected) Stool Astrovirus (PCR) (NotDetected) Stool Campylobacter PCR (NotDetected) Stl C. diff Tox B Gene (Neg) Stool Cryptosporidium PCR (NotDetected) Stl E.coli Shiga Tox PCR (NotDetected) Stl Enterotoxigenic E PCR (NotDetected) Stool EPEC (PCR) (NotDetected) Stool EAEC (PCR) (NotDetected) Stl E. histolytica PCR (NotDetected) Stool Giardia Lamblia PCR (NotDetected) Stool Salmonella PCR (NotDetected) Stool Sapovirus (PCR) (NotDetected) Stl P. shigelloides PCR (NotDetected) Stl Shigella/EIEC PCR (NotDetected) St Y.enterocolitica PCR (NotDetected) Stool Vibrio (PCR) (NotDetected) Stl Vibrio cholerae PCR (NotDetected) Stl Norovirus GI/GII PCR (NotDetected) SARS-CoV-2, RNA, NAAT (NEGATIVE) Blood Type Blood Type Recheck Antibody Screen Antibody Identification Antibody ID Comment Antigen Identification Crossmatch Diagnostic Findings Abdomen/Pelvis CT 09/27/23 15:38 Exam(s): CT ABDOMEN + PELVIS With Contrast IV Amt: 91 ml optiray 320 EXAM: CT Abdomen and Pelvis With Intravenous Contrast CLINICAL HISTORY: lower abd pain, bloody stool. TECHNIQUE: Axial computed tomography images of the abdomen and pelvis with intravenous contrast. CTDI is 19.24 mGy and DLP is 880.95 mGy-cm. Automated exposure control was utilized for the study. A dose lowering technique was utilized adhering to the principles of ALARA. CONTRAST: Patient received 91 ml optiray 320 of IV contrast COMPARISON: CT abdomen and pelvis with contrast dated 09/04/2023 FINDINGS: Limitations: There is respiratory artifact, which degrades image quality on multiple image slices. Lung bases: Unremarkable. No mass. No consolidation. ABDOMEN: Liver: Unremarkable. No mass. Gallbladder and bile ducts: Unremarkable. No calcified stones. No ductal dilation. Pancreas: Pancreas is normal in appearance, accounting for respiratory artifact. No ductal dilation. Spleen: Unremarkable. No splenomegaly. Adrenals: Unremarkable. No mass. Kidneys and ureters: Unremarkable. No solid mass. No hydronephrosis. Stomach and bowel: Stomach is only minimally distended with retained oral contents and fluid. No significant gastric mucosal thickening. No evidence for bowel obstruction. No obvious asymmetric bowel mucosal abnormality, accounting for limitations with respiratory artifact. No appreciable diverticulitis. PELVIS: Appendix: No findings to suggest acute appendicitis. Bladder: Unremarkable. No mass. Reproductive: Unremarkable as visualized. ABDOMEN and PELVIS: Intraperitoneal space: Unremarkable. No free air. No significant fluid collection. Bones/joints: There has been interval repair of the avulsion fracture involving the posterior right acetabulum with a total hip arthroplasty is identified with metallic plate and threaded screw fixation along the posterior acetabulum. Along the posterior aspect of the hip joint, there is a rim-enhancing fluid collection which demonstrates a somewhat crescentic appearance measuring 1.7 cm in diameter by approximately 6.9 cm in transverse diameter by 7.8 cm in craniocaudal length. Soft tissues: Unremarkable. Vasculature: Atherosclerotic calcification of the aorta without dissection or aneurysm. Lymph nodes: Unremarkable. No enlarged lymph nodes. Tubes, lines and devices: The cardiac chambers are normal in caliber with evidence of a dual lead pacer. IMPRESSION: 1. Stomach is only minimally distended with retained oral contents and fluid. No significant gastric mucosal thickening. No evidence for bowel obstruction. No obvious asymmetric bowel mucosal abnormality, accounting for limitations with respiratory artifact. No appreciable diverticulitis. No free intraperitoneal fluid or pneumoperitoneum. 2. There has been interval repair of the avulsion fracture involving the posterior right acetabulum with a total hip arthroplasty is identified with metallic plate and threaded screw fixation along the posterior acetabulum. Along the posterior aspect of the hip joint, there is a rim- enhancing fluid collection which demonstrates a somewhat crescentic appearance measuring 1.7 cm in diameter by approximately 6.9 cm in transverse diameter by 7.8 cm in craniocaudal length. This is a presumed postoperative seroma. However, please correlate with laboratory and clinical findings for potential abscess. Electronically signed by: Heladio Kenny MD 09/27/23 20:26 PM
[2023-09-28] MEDS: SODIUM CHLORIDE 0.9% 500 ML IV SCH (09:59)
--- NOTE | 2023-09-28 10:01 | Anesthesiology Consultation ---
Date of Service September 28, 2023 Assessment & Plan Chart Review Chart Review: Acceptable Risk for Surgery and Patient NOT seen in Pre Admission Testing Consults Requested none History Surgery Operation Date: 09/28/23 17:25 Proposed Procedures p Esophagogastroduodenoscopy Dr. Casas - Milla Casas Jr, MD Height/Weight Height: 5 ft 4 in Weight: 72.7 kg Allergies Allergy/AdvReac Type Severity Reaction Status Date / Time No Known Drug Allergies Allergy Unknown . Verified 09/27/23 22:40 Medications Home Medications Medication Instructions Recorded Confirmed Last Taken aspirin 81 mg chewable tablet 81 mg PO QAM 10/25/17 09/27/23 Unknown fluticasone propionate 50 2 spray intranasal QAM Other 10/25/17 09/27/23 Unknown mcg/actuation nasal spray,suspension (Flonase Allergy Relief) atorvastatin 40 mg tablet 40 mg PO QAM 10/04/22 09/27/23 09/04/23 levothyroxine 75 mcg tablet 75 mcg PO DAILYBB 10/04/22 09/27/23 09/04/23 Bacitracin Oint 1 applic topical TID 09/27/23 09/27/23 Unknown acetaminophen 325 mg tablet 975 mg PO Q6 09/27/23 09/27/23 Unknown (Tylenol) baclofen 10 mg tablet 10 mg PO HS PRN Muscle Spasm 09/27/23 09/27/23 Unknown carisoprodol 350 mg tablet 175 mg PO QID PRN Muscle Spasm 09/27/23 09/27/23 Unknown cetirizine 10 mg tablet (Zyrtec) 10 mg PO DAILY 09/27/23 09/27/23 Unknown docusate sodium 100 mg capsule 100 mg PO BID 09/27/23 09/27/23 Unknown ferrous sulfate 325 mg (65 mg 325 mg PO BID 09/27/23 09/27/23 Unknown iron) tablet melatonin 5 mg tablet 5 mg PO HS 09/27/23 09/27/23 Unknown tramadol 50 mg tablet 25 mg PO Q6 PRN Pain 09/27/23 09/27/23 Unknown Active Medications Generic Name Dose Route Start Last Admin Trade Name Freq PRN Reason Stop Dose Admin Pantoprazole Sodium 40 mg/ 100 mls @ 20 mls/hr 09/27/23 16:00 09/28/23 08:36 Dextrose IV 10/27/23 15:59 8 mg/hr Q5H JACQUELYN 20 mls/hr Administration 8 MG/HR Sodium Chloride 1,000 mls @ 100 mls/hr 09/28/23 00:16 09/28/23 01:23 Nss IV 10/28/23 00:15 100 mls/hr .Q10H JACQUELYN Administration Sodium Chloride 500 mls @ 15 mls/hr 09/28/23 07:30 09/28/23 09:59 Nss IV 09/29/23 07:29 15 mls/hr .Q24H JACQUELYN Administration NPO Date Last Intake of Fluids: 09/27/23 Time Last Intake of Fluids: 23:30 Date Last Intake of Solids: 09/27/23 Time Last Intake of Solids: 23:30 Past Medical History Medical History Osteoarthritis Migraine "flashing headaches" Syncope Asthma as a child/no problems now Past Family History Family History Mother Family history of diabetes mellitus Brother Family history of diabetes mellitus Other Family hx of colon cancer Past Surgical History Surgical History History of open reduction and internal fixation (ORIF) procedure left tib/fib History of colonoscopy History of tooth extraction History of tonsillectomy History of cataract surgery rt eye Social History Smoking Status: Never smoker Do You Dip or Chew Tobacco: No Hx Alcohol Use: No Hx Substance Use: No substance use type: does not use Review of Systems Constitutional: no fever and no chills Eyes: no blind spots and no worsening vision Ear, Nose, Mouth, Throat: no ear pain, no tinnitus and no hearing loss Respiratory: no cough and no dyspnea Cardiovascular: no chest pain and no dyspnea on exertion Gastrointestinal: + abdominal pain, + nausea, + diarrhea/loose stools, + blood in stools and + melena; no vomiting and no constipation Genitourinary (Female): no dysuria and no urinary urgency Musculoskeletal: no back pain, no neck pain and no stiffness Integumentary: no rash, no skin ulcer and no erythema Neurologic: no gait abnormality and no headache(s) Psychiatric: no behavioral changes and no depression Hematologic / Lymphatic: no easy bleeding and no easy bruising Physical Exam Vital Signs Last Vital Signs Temp 36.8 C 09/28/23 08:47 Pulse 92 H 09/28/23 09:55 Resp 14 09/28/23 09:55 BP 135/80 09/28/23 09:55 Pulse Ox 98 09/28/23 09:55 O2 Del Method Room Air 09/28/23 09:55 Constitutional WD/WN, vitals as above Eyes PERRL, conjunctivae normal, anicteric sclerae ENMT external ear and nose normal, oropharynx normal Neck trachea midline, no thyromegaly Respiratory normal respiratory effort, lungs clear to auscultation Cardiovascular RRR, no murmur, no edema Heart Sounds: normal S1 and normal S2 Gastrointestinal (Abdomen) Inspection/Auscultation: abdomen normal to inspection; abdomen not distended Percussion/Palpation: + abdomen tender (mildly in midepigastrium) and abdomen soft; no guarding Musculoskeletal no cyanosis or clubbing, extremities motor strength 5/5 Skin no rashes, warm and dry Neurologic PERRL, EOMI, accommodation nl, no face palsy, no dysarthria Psychiatric A+Ox3, euthymic affect Testing Laboratory Results 09/28/23 05:50 09/28/23 05:50 PT 11.4 Seconds (9.0-12.0) 09/28/23 00:34 INR 1.1 (0.9-1.1) 09/28/23 00:34 APTT < 20 Seconds (21-31) L 09/27/23 15:30 Hemoglobin A1c 6.1 % (4.5-5.6) H 09/28/23 05:50 Blood Type O Positive 09/27/23 16:01 Antibody Screen POSITIVE A 09/27/23 16:01
--- NOTE | 2023-09-28 10:59 | GI REPORT ---
[facility] Patient: HARSHAL BUCK : 1945 Sex at : Female Age: 78 Years Procedure: Upper GI endoscopy Date: 09/28/2023 Attending Physician: Milla Casas MD Referring MD: Lesly Kim Indications: - Active gastrointestinal bleeding Medications: - Monitored Anesthesia Care - Propofol per Anesthesia - See the Anesthesia note for documentation of the administered medications Complications: - No immediate complications. Estimated Blood Loss: - Estimated blood loss: 10 mL requiring treatment with placement of hemostatic clip(s). Procedure: - ASA Grade Assessment: III - A patient with severe systemic disease. - The egd scope was introduced through the mouth and advanced to the second part of the duodenum. - The upper GI endoscopy was accomplished without difficulty. - The patient tolerated the procedure well. Findings: - The examined esophagus was normal. - Red blood was found in the gastric body and in the gastric antrum. - The exam of the stomach was otherwise normal. - One spurting cratered duodenal ulcer with a visible vessel was found in the duodenal bulb. Area was unsuccessfully injected with 7 mL of a 0.1 mg/mL solution of epinephrine for hemostasis. Coagulation for hemostasis using bipolar probe was unsuccessful. To stop active bleeding, one hemostatic clip was successfully placed. 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 There was no bleeding during, or at the end, of the procedure. Impression: - Normal esophagus. - Red blood in the gastric body and in the gastric antrum. - Spurting duodenal ulcer with a visible vessel. Treatment not successful. Treated with bipolar cautery. Treatment not successful. Clip was placed. 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 - No specimens collected. Recommendation: - Return patient to ICU for ongoing care. Procedure Code(s): - 35918, Esophagogastroduodenoscopy, flexible, transoral; with control of bleeding, any method Diagnosis Code(s): - K92.2, Gastrointestinal hemorrhage, unspecified - K26.4, Chronic or unspecified duodenal ulcer with hemorrhage CPT(R) - 2023 copyright [employer]. All Rights Reserved. The CPT codes, CCI edits and ICD codes generated are intended as suggestions and were generated based on input data. These codes are preliminary and upon stroke program coordinator review may be revised to meet current compliance and payer requirements. The provider is responsible for the final determination of appropriate codes, and modifiers. Dr. Milla Casas MD This document has been electronically signed. Note Initiated:09/28/2023 Note Completed:09/28/2023 10:59 AM [id number]
--- NOTE | 2023-09-28 11:04 | Communication Note ---
Date of Service: September 28, 2023 EGD with active bleeding in postbulbar region. Treated with epi, cautery and finally a clip was placed. Bleeding had ceased by end of procedure. If bleed ing restarts probably should be transferred to area with IR.
--- NOTE | 2023-09-28 11:20 | Anesthesiology Progress Note ---
Date of Service September 28, 2023 Anesthesia Post Procedure Vital Signs Vital Signs: Temp Pulse Pulse Resp BP BP Pulse Ox 09/28/23 11:13 73 18 139/61 98 09/28/23 10:58 73 16 138/70 97 09/28/23 09:55 92 H 14 135/80 98 09/28/23 08:47 36.8 C 91 H 16 125/67 95 09/28/23 07:47 36.8 C 97 H 18 112/66 97 09/28/23 07:17 36.8 C 84 16 120/62 95 09/28/23 07:02 37.1 C 95 H 15 104/63 97 09/28/23 06:46 36.8 C 92 H 15 120/66 96 09/28/23 06:03 99 H 21 99 09/28/23 06:00 115/49 L 09/28/23 05:54 95 H 25 H 98 09/28/23 05:51 86 18 98 09/28/23 05:45 37.0 C 88 15 115/59 L 95 09/28/23 05:30 92 H 18 98 09/28/23 05:15 92 H 16 97 09/28/23 05:15 115/60 09/28/23 05:00 109/64 09/28/23 05:00 109/64 09/28/23 05:00 95 H 19 98 09/28/23 04:51 89 16 96 09/28/23 04:45 110/58 L 09/28/23 04:40 37.1 C 87 15 96/61 L 95 09/28/23 04:33 92 H 16 96 09/28/23 04:30 96/61 L 09/28/23 04:30 96/61 L 09/28/23 04:30 96/61 L 09/28/23 04:18 96 H 17 96 09/28/23 04:15 102/58 L 09/28/23 04:15 94 H 15 98 09/28/23 04:10 37.2 C 94 H 15 102/58 L 98 09/28/23 04:06 92 H 19 96 09/28/23 04:00 109/58 L 09/28/23 04:00 109/58 L 09/28/23 04:00 36.8 C 09/28/23 03:55 36.8 C 90 15 102/60 97 09/28/23 03:51 90 16 97 09/28/23 03:45 90 18 96 09/28/23 03:45 102/60 09/28/23 03:39 92 H 18 96 09/28/23 03:39 37.1 C 97 H 15 109/58 L 97 09/28/23 03:26 37.1 C 93 H 15 107/70 96 09/28/23 03:25 37.1 C 93 H 15 107/70 96 09/28/23 03:15 107/70 09/28/23 02:53 37.0 C 92 H 15 118/81 97 09/28/23 02:48 93 H 17 99 09/28/23 02:45 118/81 09/28/23 02:45 118/81 09/28/23 02:45 118/81 09/28/23 02:42 94 H 17 98 09/28/23 02:38 37.0 C 92 H 15 101/62 98 09/28/23 02:23 37.0 C 92 H 15 107/67 99 09/28/23 02:15 91 H 19 97 09/28/23 02:15 107/67 09/28/23 02:15 107/67 09/28/23 02:13 37.0 C 91 H 15 107/67 97 09/28/23 02:12 94 H 20 98 09/28/23 02:00 114/62 09/28/23 02:00 114/62 09/28/23 01:57 92 H 15 98 09/28/23 01:51 92 H 15 98 09/28/23 01:45 112/63 09/28/23 01:45 112/63 09/28/23 01:43 37.0 C 91 H 15 112/63 98 09/28/23 01:33 94 H 17 97 09/28/23 01:30 105/57 L 09/28/23 01:28 37.1 C 92 H 16 105/57 L 97 09/28/23 01:11 36.9 C 96 H 16 117/61 99 09/28/23 01:03 93 H 17 95 09/28/23 01:00 112/60 09/28/23 01:00 112/60 09/28/23 01:00 112/60 09/28/23 00:48 93 H 19 95 09/28/23 00:45 94/54 L 09/28/23 00:45 94/54 L 09/28/23 00:45 94/54 L 09/28/23 00:45 92 H 16 96 09/28/23 00:18 37.1 C 95 H 18 107/52 L 98 09/28/23 00:16 09/28/23 00:09 96 H 16 98 09/28/23 00:01 107/52 L 09/28/23 00:01 107/52 L 09/28/23 00:00 107 H 24 78 L 09/28/23 00:00 95 H 09/28/23 00:00 37.1 C 95 H 18 107/52 L 98 09/27/23 23:58 106/57 L 09/27/23 23:58 106/57 L 09/27/23 23:58 106/57 L 09/27/23 23:57 100 H 20 09/27/23 23:37 09/27/23 23:30 113/63 09/27/23 23:27 95 H 21 99 09/27/23 23:20 111/59 L 09/27/23 23:20 111/59 L 09/27/23 23:20 111/59 L 09/27/23 23:18 95 H 16 99 09/27/23 23:10 133/68 09/27/23 23:10 133/68 09/27/23 23:08 36.9 C 101 H 17 117/66 99 09/27/23 23:04 102/64 09/27/23 23:02 37.1 C 103 H 20 102/64 99 09/27/23 23:00 98/60 L 09/27/23 22:58 37.1 C 99 H 24 104/64 98 09/27/23 22:50 104/49 L 09/27/23 22:45 105 H 20 100 09/27/23 22:42 36.8 C 102 H 21 133/68 100 09/27/23 22:41 109/51 L 09/27/23 22:41 109/51 L 09/27/23 22:41 109/51 L 09/27/23 22:38 37.6 C H 96 H 23 114/58 L 95 09/27/23 22:30 114/58 L 09/27/23 22:27 84 24 99 09/27/23 22:12 115 H 21 98 09/27/23 22:12 91/46 L 09/27/23 22:12 91/46 L 09/27/23 22:12 37.3 C 115 H 19 91/46 L 98 09/27/23 22:00 108 H 17 96 09/27/23 22:00 100/51 L 09/27/23 22:00 100/51 L 09/27/23 22:00 100/51 L 09/27/23 21:58 103/47 L 09/27/23 21:57 37.5 C 108 H 19 103/47 L 97 09/27/23 21:48 107 H 16 96 09/27/23 21:39 105 H 13 96 09/27/23 21:39 98/48 L 09/27/23 21:38 37.6 C H 105 H 13 98/48 L 96 09/27/23 21:30 114/49 L 09/27/23 21:30 114/49 L 09/27/23 21:20 103 H 15 113/53 L 96 09/27/23 21:18 104 H 25 H 97 09/27/23 21:03 102 H 19 96 09/27/23 21:00 104/50 L 09/27/23 21:00 104/50 L 09/27/23 20:54 105 H 19 97 09/27/23 20:00 104 H 18 96 09/27/23 20:00 101/56 L 09/27/23 20:00 101/56 L 09/27/23 20:00 101/56 L 09/27/23 19:30 123/62 09/27/23 19:30 123/62 09/27/23 19:14 105 H 12 114/70 98 09/27/23 19:12 96 09/27/23 19:09 96 09/27/23 17:27 103 H 23 124/64 95 09/27/23 15:47 10 L 20 99 09/27/23 15:35 106 H 20 139/69 99 09/27/23 15:35 37.6 C H 106 H 20 139/69 99 Pulse Ox O2 Del Method O2 Del Method 09/28/23 11:13 Room Air 09/28/23 10:58 Room Air 09/28/23 09:55 Room Air 09/28/23 08:47 09/28/23 07:47 09/28/23 07:17 09/28/23 07:02 09/28/23 06:46 09/28/23 06:03 09/28/23 06:00 09/28/23 05:54 09/28/23 05:51 09/28/23 05:45 09/28/23 05:30 09/28/23 05:15 09/28/23 05:15 09/28/23 05:00 09/28/23 05:00 09/28/23 05:00 09/28/23 04:51 09/28/23 04:45 09/28/23 04:40 09/28/23 04:33 09/28/23 04:30 09/28/23 04:30 09/28/23 04:30 09/28/23 04:18 09/28/23 04:15 09/28/23 04:15 09/28/23 04:10 09/28/23 04:06 09/28/23 04:00 09/28/23 04:00 09/28/23 04:00 09/28/23 03:55 09/28/23 03:51 09/28/23 03:45 09/28/23 03:45 09/28/23 03:39 09/28/23 03:39 09/28/23 03:26 09/28/23 03:25 09/28/23 03:15 09/28/23 02:53 09/28/23 02:48 09/28/23 02:45 09/28/23 02:45 09/28/23 02:45 09/28/23 02:42 09/28/23 02:38 09/28/23 02:23 09/28/23 02:15 09/28/23 02:15 09/28/23 02:15 09/28/23 02:13 09/28/23 02:12 09/28/23 02:00 09/28/23 02:00 09/28/23 01:57 09/28/23 01:51 09/28/23 01:45 09/28/23 01:45 09/28/23 01:43 09/28/23 01:33 09/28/23 01:30 09/28/23 01:28 09/28/23 01:11 09/28/23 01:03 09/28/23 01:00 09/28/23 01:00 09/28/23 01:00 09/28/23 00:48 09/28/23 00:45 09/28/23 00:45 09/28/23 00:45 09/28/23 00:45 09/28/23 00:18 Room Air 09/28/23 00:16 97 Room Air 09/28/23 00:09 09/28/23 00:01 09/28/23 00:01 09/28/23 00:00 09/28/23 00:00 09/28/23 00:00 Room Air 09/27/23 23:58 09/27/23 23:58 09/27/23 23:58 09/27/23 23:57 09/27/23 23:37 Room Air 09/27/23 23:30 09/27/23 23:27 09/27/23 23:20 09/27/23 23:20 09/27/23 23:20 09/27/23 23:18 09/27/23 23:10 09/27/23 23:10 09/27/23 23:08 09/27/23 23:04 09/27/23 23:02 09/27/23 23:00 09/27/23 22:58 09/27/23 22:50 09/27/23 22:45 09/27/23 22:42 Room Air 09/27/23 22:41 09/27/23 22:41 09/27/23 22:41 09/27/23 22:38 Room Air 09/27/23 22:30 09/27/23 22:27 09/27/23 22:12 09/27/23 22:12 09/27/23 22:12 09/27/23 22:12 09/27/23 22:00 09/27/23 22:00 09/27/23 22:00 09/27/23 22:00 09/27/23 21:58 09/27/23 21:57 09/27/23 21:48 09/27/23 21:39 09/27/23 21:39 09/27/23 21:38 09/27/23 21:30 09/27/23 21:30 09/27/23 21:20 Room Air 09/27/23 21:18 09/27/23 21:03 09/27/23 21:00 09/27/23 21:00 09/27/23 20:54 09/27/23 20:00 09/27/23 20:00 09/27/23 20:00 09/27/23 20:00 09/27/23 19:30 09/27/23 19:30 09/27/23 19:14 Room Air 09/27/23 19:12 09/27/23 19:09 09/27/23 17:27 Room Air 09/27/23 15:47 Room Air 09/27/23 15:35 Room Air 09/27/23 15:35 Room Air Pain Intensity Right Leg: Pain Intensity: 3 Transfer of Care Handoff Completed per policy Notes Mental Status: alert / awake / arousable Patient Amnestic to Procedure: Yes Nausea / Vomiting: adequately controlled Pain: adequately controlled Airway Patency, RR, SpO2: stable & adequate BP & HR: stable & adequate Hydration State: stable & adequate Anesthetic Complications: no major complications apparent and Pt Satisfied with anesthetic care
[2023-09-28] MEDS: LACTATED RINGER'S 1,000 ML IV SCH (12:27)
[2023-09-28] MEDS: CALCIUM GLUCONATE 1000 MG/60 ML NSS IV ONE (12:28)
[2023-09-28] MEDS: ONDANSETRON INJ 2 MG/ML 2 ML VIAL ONE (12:30)
[2023-09-28] MEDS: LIDOCAINE 2% 2 ML VIAL/AMP(20MG/ML) INFIL ONE (12:30)
[2023-09-28] MEDS: PROPOFOL IV EMULSION 10 MG/ML 20 ML VIAL IV ONE (12:30)
[2023-09-28 12:40] LABS: Hematocrit (blood only) 24.8 % (37.0-47.0); Hemoglobin 8.3 g/dl (12.0-16.0)
[2023-09-28] MEDS: ACETAMINOPHEN 325 MG TAB PO PRN (12:55)
[2023-09-28] MEDS: traMADol HCL 50 MG TABLET PO PRN (14:01)
[2023-09-28 17:10] LABS: Hematocrit (blood only) 22.6 % (37.0-47.0); Hemoglobin 7.4 g/dl (12.0-16.0)
[2023-09-28 17:18] LABS: Fibrinogen 160 mg/dl (184-400)
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
[2023-09-28 18:02] LABS: INR 1.1 (0.9-1.1); Prothrombin Time 12.3 Seconds (9.0-12.0)
[2023-09-28 21:30] LABS: Fibrinogen 265 mg/dl (184-400)
[2023-09-29] MEDS ORDERED: SODIUM CHLORIDE 0.9% 250 ML IV PRN (01:22)
--- NOTE | 2023-09-29 02:05 | Communication Note ---
Date of Service: September 29, 2023 HGB level returned at 6.9 downtrend from 7.4 and 8.3 post EGD on 09/28/2023, where patient was found to have active bleeding from a cratered duodenal ulcer with a visible spurting vessel. See endoscopic report. Bleeding was eventually controlled with 1 [place] scientific clip. Further recommendations were noted that if bleeding resumed or continued to bleed, transfer to center with IR capabilities. Patient also has antibodies with her blood typing making obtaining blood products more of a challenge. - Patient's HGB levels have downtrended from 8.3 post EGD to now 6.9- She is currently with adequate blood pressure and HR. However, as above patient may need more PRBCs as well as possible evaluation by IR to stop bleeding. I have contacted [place]- her case was discussed with DR. Sisi HERNANDEZU Attending and has been accepted for transfer. - Patient will go via [facility] [id number] -bed assignment - SICU [id number] Patient currently has 3 more units of PRBC available at this time. I have updated the patient, primary admitting service- Dr. Clement, and patient's Daughter Erika Brandt. Alejandro SALDIVAR ([facility]-)
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
--- NOTE | 2023-09-29 18:33 | Electrocardiogram Report ---
Test Reason : Blood Pressure : / mmHG Vent. Rate : 101 BPM Atrial Rate : 101 BPM P-R Int : 142 ms QRS Dur : 094 ms QT Int : 356 ms P-R-T Axes : 071 054 070 degrees QTc Int : 461 ms Sinus tachycardia Incomplete right bundle branch block Nonspecific ST abnormality Abnormal ECG When compared with ECG of 04-SEP-2023 15:33, No significant change was found Confirmed by Aramis Suarez ([id number]) on 09/29/2023 6:32:47 PM Referred By: REFERRED SELF Confirmed By:Aramis Suarez
== END 2023-09-29 03:48 | disposition short-term general hospital (02) | DRG 378 ==
LOC: ED 15:19 → 1E 22:26

== ENCOUNTER 2023-10-11 02:39 | Inpatient (IN) ==
--- NOTE | 2023-10-11 02:58 | Emergency Department Note ---
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 thrombosis from the left common femoral to the popliteal vein. Electronically signed by: Heladio Kenny MD 10/11/23 04:32 AM Discharge Plan Visit Data Chief Complaint: Dizziness Stated Complaint: DIZZY, LIGHTHEADED ED Provider: Da [place] Discharge Problem: Acute deep vein thrombosis (DVT), Near syncope, C. difficile colitis Patient Disposition: Being Evaluated by Hospitalist Forms Stand Alone Forms: My [facility] Prescriptions Prescriptions: No Action atorvastatin 40 mg tablet 40 mg PO DAILY omeprazole 40 mg capsule,delayed release(DR/EC) 40 mg PO BID levothyroxine 75 mcg tablet 75 mcg PO DAILY baclofen 10 mg tablet 10 mg PO HS PRN (Reason: Pain) ferrous sulfate [FeroSul] 325 mg (65 mg iron) tablet 325 mg PO BID Referrals Referrals: Ymaini Piper MD [Primary Care Provider] - Discharge Problem: Acute deep vein thrombosis (DVT) Qualifiers: DVT location: lower extremity
[2023-10-11 03:10] LABS: Basophils # (auto) 0.05 K/uL (0.00-0.20); Basophils % (auto) 0.5 %; Eosinophils # (auto) 0.25 K/uL (0.00-0.50); Eosinophils % (auto) 2.3 %; Hematocrit (blood only) 30.1 % (37.0-47.0); Hemoglobin 9.4 g/dl (12.0-16.0); Immature Granulocytes # (auto) 0.06 K/uL (0.01-0.20); Immature Granulocytes % (auto) 0.5 %; Lymphocytes # (auto) 0.56 K/uL (1.20-3.40); Lymphocytes % (auto) 5.1 %; Mean Corpuscular Hemoglobin 30.4 pg (25.0-34.0); Mean Corpuscular Hgb Conc 31.2 g/dL (32.0-36.0); Mean Corpuscular Volume 97.4 fL (80.0-100.0); Monocytes # (auto) 0.65 K/uL (0.11-0.59); Monocytes % (auto) 5.9 %; Neutrophils # (auto) 9.37 K/uL (1.40-6.50); Neutrophils % (auto) 85.7 %; Platelet Count 250 K/uL (130-400); Red Blood Count 3.09 M/uL (4.20-5.40); White Blood Count 10.94 K/ul (4.8-10.8)
[2023-10-11 03:15] LABS: iSTAT Creatinine 0.7 mg/dl (0.6-1.3); iSTAT Hemoglobin 8.5 g/dl (12.0-16.0); iSTAT Ionized Calcium 1.14 mmol/l (1.12-1.32); iSTAT Potassium 3.2 mmol/L (3.3-5.0)
[2023-10-11] MEDS: OPTIRAY 320 125ml IV ONE (03:22)
[2023-10-11 03:29] LABS: Albumin Globulin Ratio 1.5 (0.9-2); Albumin Level 3.7 gm/dl (3.4-5.0); BUN Creatinine Ratio 18.5 (10-20); Bilirubin,Total 0.4 mg/dl (0.2-1.0); Calcium 8.9 mg/dl (8.6-10.3); Creatinine Clr Calc Pharmacy 67.9 ml/min; Est GFR (African American) 99.3 ml/min; Est GFR (Non-African American) 85.6 ml/min; Globulin 2.5 gm/dl (2.5-4.0); Magnesium 2.1 mg/dl (1.7-2.4); Potassium 3.7 mmol/L (3.5-5.1); Total Protein 6.2 gm/dl (6.0-8.3)
[2023-10-11 03:35] LABS: Troponin I High Sensitivity 7.6 pg/ml (0-14)
--- NOTE | 2023-10-11 03:42 | CT Scan Report ---
Exam(s): CT HEAD Without Contrast EXAM: CT Head Without Intravenous Contrast CLINICAL HISTORY: Reason for exam: dizziness, DONALDSON, abd pain. TECHNIQUE: Axial computed tomography images of the head/brain without intravenous contrast. CTDI is 20.75 mGy and DLP is 2149.68 mGy-cm. Automated exposure control was utilized for the study. A dose lowering technique was utilized adhering to the principles of ALARA. COMPARISON: Head CT September 04, 2023. FINDINGS: Brain: Age-related cerebral volume loss. Periventricular and subcortical white matter hypoattenuation, consistent with chronic microangiopathy. No acute intracranial hemorrhage. No midline shift or mass effect. Ventricles: Unremarkable. No ventriculomegaly. Bones/joints: Unremarkable. No acute fracture. Soft tissues: Unremarkable. Sinuses: Unremarkable as visualized. No acute sinusitis. Mastoid air cells: Unremarkable as visualized. No mastoid effusion. IMPRESSION: No acute intracranial hemorrhage. No midline shift or mass effect. Electronically signed by: Joey Sevilla MD 10/11/23 03:41 AM
[2023-10-11 03:44] LABS: INR 0.9 (0.9-1.1); Partial Thromboplastin Ratio 0.9; Partial Thromboplastin Time 23 Seconds (21-31); Prothrombin Time 10.2 Seconds (9.0-12.0)
--- NOTE | 2023-10-11 03:51 | CT Scan Report ---
Exam(s): CTA CHEST IV Amt: 118 ml optiray 320 EXAM: CT Angiography Chest With Intravenous Contrast CLINICAL HISTORY: Reason for exam: dizziness, DONALDSON, abd pain, recent surgery. TECHNIQUE: Axial computed tomographic angiography images of the chest with intravenous contrast. CTDI is 20.75 mGy and DLP is 2149.68 mGy-cm. Automated exposure control was utilized for the study. A dose lowering technique was utilized adhering to the principles of ALARA. MIP reconstructed images were created and reviewed. COMPARISON: No relevant prior studies available. FINDINGS: Pulmonary arteries: Unremarkable. No pulmonary embolism. Aorta: Atherosclerotic changes of the aorta. No thoracic aortic aneurysm. Lungs: Unremarkable. No mass. No consolidation. Pleural space: Unremarkable. No significant effusion. No pneumothorax. Heart: Unremarkable. No cardiomegaly. No significant pericardial effusion. No evidence of RV dysfunction. Bones/joints: Degenerative changes of the spine. No acute fracture. No dislocation. Soft tissues: Unremarkable. Lymph nodes: Unremarkable. No enlarged lymph nodes. Tubes, lines and devices: Pacemaker leads. IMPRESSION: No acute findings in the visualized arteries of the chest. Electronically signed by: Jeoy Sevilla MD 10/11/23 03:50 AM
[2023-10-11 03:52] LABS: Influenza A virus by PCR Negative (Neg); Influenza B virus by PCR Negative (Neg); RSV by PCR Negative (Neg); SARS CoV2 RNA(COVID-19) Ceph NEGATIVE (Negative)
[2023-10-11] MEDS ORDERED: SODIUM CHLORIDE 0.9% 250 ML IV PRN (04:05)
[2023-10-11] MEDS: SODIUM CHLORIDE 0.9% 500 ML IV ONE (04:25)
[2023-10-11] MEDS: ONDANSETRON INJ 2 MG/ML 2 ML VIAL IV STA (04:25)
--- NOTE | 2023-10-11 04:33 | Ultrasound Report ---
Exam(s): US VENOUS BILATERAL LOWER EXTREMITIES EXAM: US Duplex Bilateral Lower Extremities Veins CLINICAL HISTORY: swelling. TECHNIQUE: Real-time duplex ultrasound scan of the bilateral lower extremity veins integrating B-mode two-dimensional vascular structure, Doppler spectral analysis, color flow Doppler imaging and compression. COMPARISON: No relevant prior studies available. FINDINGS: Right deep veins: The distal right popliteal vein is duplicated with 1 of the venous segments noncompressible and demonstrating low-level echogenic components. The interrogated right peroneal veins are noncompressible consistent with thrombosis. No DVT in the right common femoral, femoral, proximal deep femoral or proximal right popliteal veins. The proximal veins are compressible and demonstrate normal color flow. Right superficial veins: Unremarkable. No thrombus in the saphenofemoral junction. Left deep veins: The left peroneal veins are.. One of the veins is noncompressible and demonstrating no evidence for internal color flow. There is no DVT in the left common femoral, femoral, proximal deep femoral or popliteal veins. The veins are compressible and demonstrate normal color flow. Left superficial veins: Unremarkable. No thrombus in the saphenofemoral junction. Soft tissues: No acute findings. No popliteal cyst. IMPRESSION: 1. Deep vein thrombosis involving both calves, as detailed above. 2. Deep vein thrombosis involving the distal right popliteal vein. No evidence for deep vein thrombosis proximal/central to the distal right popliteal vein. 3. No deep vein thrombosis from the left common femoral to the popliteal vein. Electronically signed by: Heladio Kenny MD 10/11/23 04:32 AM
[2023-10-11] MEDS: ONDANSETRON INJ 2 MG/ML 2 ML VIAL ONE (04:44)
--- NOTE | 2023-10-11 04:59 | CT Scan Report ---
Exam(s): CT ABDOMEN + PELVIS With Contrast IV Amt: 118 ml optiray 320 EXAM: CT Abdomen and Pelvis With Intravenous Contrast CLINICAL HISTORY: dizziness, DONALDSON, abd pain, recent surgery. TECHNIQUE: Axial computed tomography images of the abdomen and pelvis with intravenous contrast. CTDI is 20.75 mGy and DLP is 2149.68 mGy-cm. Automated exposure control was utilized for the study. A dose lowering technique was utilized adhering to the principles of ALARA. CONTRAST: Patient received 118 ml optiray 320 of IV contrast COMPARISON: CT abdomen and pelvis with contrast dated 09/27/2023 FINDINGS: Limitations: There is respiratory artifact, which degrades image quality on multiple image slices. Lung bases: Unremarkable. No mass. No consolidation. ABDOMEN: Liver: Unremarkable. No mass. Gallbladder and bile ducts: Unremarkable. No calcified stones. No ductal dilation. Pancreas: Unremarkable. No mass. No ductal dilation. Spleen: Unremarkable. No splenomegaly. Adrenals: Unremarkable. No mass. Kidneys and ureters: Unremarkable. No solid mass. No hydronephrosis. Stomach and bowel: Stomach is predominantly decompressed without significant mucosal abnormality. There is a metallic structure along the medial aspect of the descending duodenum, new from the previous examination, most consistent with an endoscopic clip. No evidence for bowel obstruction. Mucosal prominence of the colon is slightly greater than expected for degree of decompression, particularly involving the distal rectosigmoid which demonstrates slightly asymmetric hyperenhancement. PELVIS: Appendix: The appendix is not clearly delineated, similar to the previous examination. No secondary findings to suggest acute appendicitis. Bladder: Unremarkable. No mass. Reproductive: Unremarkable as visualized. ABDOMEN and PELVIS: Intraperitoneal space: Unremarkable. No free air. No significant fluid collection. Bones/joints: A right total hip arthroplasty is noted. No acute osseous traumatic injury. Similar degenerative changes of the thoracolumbar spine. No dislocation. Soft tissues: Unremarkable. Vasculature: Atherosclerotic calcification of the aorta. No dissection or aneurysm. Lymph nodes: Unremarkable. No enlarged lymph nodes. IMPRESSION: No evidence for bowel obstruction. Mucosal prominence of the colon is slightly greater than expected for degree of decompression, particularly involving the distal rectosigmoid which demonstrates slightly asymmetric hyperenhancement. Findings are most consistent with inflammatory or infectious colitis. No free intraperitoneal fluid or pneumoperitoneum. Electronically signed by: Heladio Kenny MD 10/11/23 04:58 AM
[2023-10-11] MEDS: PANTOprazole 80 MG in DEXTROSE 5% 100 ML IV STA (05:01)
--- OUTSIDE RECORDS SUMMARY | 2023-10-11 05:31 | External Medical Summary ---
Author Name Unknown Address Unknown Organization [id number]:[facility] [address] [place] [address] Laboratory Report Ordering Provider Test Date Status KATHARINA GAITAN 10/05/2023 06:40:00 Final Observation Date Value Abnormality Reference (Units ) Status Magnesium 10/05/2023 06:40:00 2.2 1.5-2.6 (m g/dL) Final Performing Location [facility] - [address] [place] [address]
--- OUTSIDE RECORDS SUMMARY | 2023-10-11 05:31 | External Medical Summary ---
Author Name Unknown Address Unknown Organization [id number][facility] [address] [place] [address] Laboratory Report Ordering Provider Test Date Status KATHARINA GAITAN 10/05/2023 06:40:00 Final Observation Date Value Abnormality Reference (Units ) Status Phosphate 10/05/2023 06:40:00 3.6 2.5-4.8 (m g/dL) Final Performing Location [facility] - [address] [place] [address]
--- OUTSIDE RECORDS SUMMARY | 2023-10-11 05:31 | External Medical Summary ---
Author Name Unknown Address Unknown Organization [id number]:[facility] [place] [facility] [address] [facility] [address] Laboratory Report Ordering Provider Test Date Status LETHA SOTO 10/05/2023 07:52:00 Final Observation Date Value Abnormality Reference (Units ) Status WBC, Total 10/05/2023 07:52:00 4.51 4.00-10.80 (K/uL) Final RBC 10/05/2023 07:52:00 2.64 3.85-5.15 (M/uL) Final Hemoglobin 10/05/2023 07:52:00 8.3 Below low normal 12.0-15.3 (g/dL) Final HCT 10/05/2023 07:52:00 26.1 Below low normal 36.0-45.2 (%) Final MCV 10/05/2023 07:52:00 98.9 81.5-97.5 (fL) Final MCH 10/05/2023 07:52:00 31.4 27.0-34.0 (pg) Final MCHC 10/05/2023 07:52:00 31.8 32.0-36.0 (g/dL) Final RDW 10/05/2023 07:52:00 22.1 11.5-15.5 (%) Final Platelets 10/05/2023 07:52:00 126 Below low normal 140-400 (K/uL) Final MPV 10/05/2023 07:52:00 11.0 6.6-11.1 (fL) Final Nucleated erythrocytes/100 leukocytes [Ratio] in Blood by Automated count 10/05/2023 07:52:00 0 <=0 (/100 WBCs) Final Performing Location [facility] - [address] [place] [address]
--- OUTSIDE RECORDS SUMMARY | 2023-10-11 05:31 | External Medical Summary ---
Author Name Unknown Address Unknown Organization [id number]:[facility] [address] [place] [address] Laboratory Report Ordering Provider Test Date Status KATHARINA GAITAN 10/04/2023 19:48:00 Final Observation Date Value Abnormality Reference (Units ) Status Phosphate 10/04/2023 19:48:00 3.0 2.5-4.8 (m g/dL) Final Performing Location [facility] - [address] [place] [address]
--- OUTSIDE RECORDS SUMMARY | 2023-10-11 05:31 | External Medical Summary ---
Author Name Unknown Address Unknown Organization [id number]:[facility] - [address] [place] [address] Laboratory Report Ordering Provider Test Date Status YARELI GAITANNAVCONCHIS 10/04/2023 08:09:00 Final Observation Date Value Abnormality Reference (Units ) Status Iron 10/04/2023 08:09:00 40 33-151 (ug/dL) Final Iron-binding capacity 10/04/2023 08:09:00 224 Below low normal 250-425 (ug/dL) Final Transferrin Sat % 10/04/2023 08:09:00 18 15-55 (%) Final Performing Location [facility] - [address] [place] [address]
--- OUTSIDE RECORDS SUMMARY | 2023-10-11 05:31 | External Medical Summary ---
Author Name Unknown Address Unknown Organization [id number]:[facility] [place] - [address] [place] [address] Laboratory Report Ordering Provider Test Date Status NATHALY JIN 10/04/2023 19:48:00 Final Observation Date Value Abnormality Reference (Units ) Status BUN 10/04/2023 19:48:00 13 6-20 (mg/dL) Final Creatinine 10/04/2023 19:48:00 0.7 0.5-1.0 (mg/dL) Final Glomerular filtration rate/1.73 sq M.predicted [Volume Rate/Area] in Serum, Plasma or Blood by Creatinine-based formula (CKD-EPI) 10/04/2023 19:48:00 86 >=60 (mL/min) Final eGFR is calculated based on the CKD-EPI 2020 equation. Sodium 10/04/2023 19:48:00 136 135-146 (m mol/L) Final Potassium 10/04/2023 19:48:00 3.7 3.5-5.1 (m mol/L) Final Cl 10/04/2023 19:48:00 103 98-107 (mm ol/L) Final CO2 10/04/2023 19:48:00 22 22-32 (mmo l/L) Final Anion gap 10/04/2023 19:48:00 11 7-15 (mmol /L) Final Glucose 10/04/2023 19:48:00 130 Above high normal 70 -120 (mg/dL) Final Calcium 10/04/2023 19:48:00 8.5 8.4-10.2 ( mg/dL) Final Performing Location [facility] [place] - [address] [place] [address]
--- OUTSIDE RECORDS SUMMARY | 2023-10-11 05:31 | External Medical Summary | Summary of Care ---
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 form to this visit with your primary care physician.) An appointment was requested with General Surgery; this appointment is scheduled for 10/18/23. You need the following studies in the future: BMP, CBC, Magnesium, Phosphorus (this has been ordered to be done around 10/08 prior to PCP visit) INSTRUCTIONS: Diet: Activity: as tolerated Call your primary care physician or seek medical attention if you have fevers, chills, have chest pain, shortness of breath, non-stop vomiting or diarrhea, confusion. If you fee suicidal or homicidal, please call the crisis hotline at [phone] ([phone]). MEDICATION CHANGES START TAKING THE FOLLOWING MEDICATIONS: 1. Omperazole (this is a acid reflux used to prevent GI bleeds) - Take 40 mg, twice daily STOP TAKING THE FOLLOWING MEDICATIONS: Aspirin 81 mg daily - this is discontinued per General Surgery due to previous bleeding; you can discuss restarting this with them on your follow up at 10/18/23 CONTINUE TAKING ALL OTHER MEDICINES PRESCRIBED documented in this encounter Progress Notes * Geovanny Peters MD - 10/05/2023 4:37 AM EDT PROGRESS NOTE - Trauma/Emergency Surgery [facility] [place] [address] Name: Beth Brandt [place] [facility] [place] Date: 10/05/2023 Time: 4:37 AM DIAGNOSIS: C/f contained duo perf & UGIB SUBJECTIVE: No acute events overnight. Started on heart healthy diet, tolerating well. 3 brown bowel movements in last 24h. Last Bowel Movement: 10/04/23 (per [facility]) OBJECTIVE: Most Recent Vital Signs: BP: 111 mmHg/43 mmHg (10/05/23251) Pulse: 81 (10/05/23251) Resp: 18 (10/05/23251) Temp: 36.5 C (10/05/23251) Temp Summary: Temp Min: 36.5 C (97.7 F) Max: 37.4 C (99.3 F) SpO2: 96 % (10/05/23251) O2 flow rate: Supplemental O2 Delivery: Room Air, None (10/04/232199) Vital Signs Last 24 Hours: Systolic BP: Most Recent Systolic BP Av.7 mmHg Min: 95 mmHg Max: 131 mmHg Temperature: Most Recent Temperature Av.2 C Min: 36.5 C Max: 37.39 C Pulse: Pulse Av.3 Min: 79 Max: 95 Respirations: Resp Av Min: 18 Max: 18 SpO2: SpO2 Av.3 % Min: 95 % Max: 98 % In / Out Past 8 Hrs: In / Out Past 24 Hrs: Intake/Output Summary (Last 24 hours) at 10/05/2023 0437 Last data filed at 10/04/2023 2100 Gross per 24 hour Intake 930.92 ml Output -- Net 930.92 ml Physical Exam: Constitutional: no acute distress HEENT: normocephalic, atraumatic Eyes: sclera and conjunctiva normal CV: Distally perfused Chest: normal respiratory effort Abdomen: soft, nondistended absolutely no tenderness Extremities: no clubbing, cyanosis, or edema, otherwise grossly normal, warm, and dry Skin: warm, dry Neuro: alert, oriented LABS: Labs reviewed as indicated below: CBC Lab Results Component Value Date/Time WBC 6.15 10/04/2023 07:48 PM WBC 4.93 03/06/2015 10:43 AM HGB 9.0 (L) 10/04/2023 07:48 PM HGB 12.3 03/06/2015 10:43 AM HCT 27.9 (L) 10/04/2023 07:48 PM HCT 37.9 03/06/2015 10:43 AM PLT 140 10/04/2023 07:48 PM PLT 175 03/06/2015 10:43 AM BMP Lab Results Component Value Date/Time NA 136 10/04/2023 07:48 PM NA 142 10/22/2019 09:35 AM POTASSIUM 3.7 10/04/2023 07:48 PM POTASSIUM 4.0 09/05/2023 08:43 PM POTASSIUM 4.5 10/22/2019 09:35 AM CL 103 10/04/2023 07:48 PM CL 108 (H) 10/22/2019 09:35 AM CO2 22 10/04/2023 07:48 PM CO2 24 10/22/2019 09:35 AM BUN 13 10/04/2023 07:48 PM BUN 14 10/22/2019 09:35 AM CREAT 0.7 10/04/2023 07:48 PM CREAT 1.0 10/22/2019 09:35 AM Ca, Mg, Phos Lab Results Component Value Date/Time CA 8.5 10/04/2023 07:48 PM CA 9.6 10/22/2019 09:35 AM MG 2.2 10/04/2023 07:48 PM PHOSPHORUS 3.0 10/04/2023 07:48 PM IMAGING: Reviewed IMPRESSION: Principal Problem: Gastrointestinal hemorrhage associated with duodenal ulcer Active Problems: Closed displaced fracture of posterior wall of right acetabulum (HCC) Duodenal perforation (HCC) On peripheral parenteral nutrition (ppn) Resolved Problems: * No resolved hospital problems. * 78 y/o female with UGIB s/p EGD and control of actively bleeding duodenal ulcer with cautery & clip, noted to have downtrending hgb, initial imaging concerning for contained duodenal perforation. 78 y/o female with UGIB s/p EGD and control of actively bleeding duodenal ulcer with cautery & clip, noted to have downtrending hgb, imaging concerning for contained duodenal perforation. PLAN: - from surgery standpoint no indication for continued antibiotics for duodenal injury - continue diet as tolerated - continue PPI BID, patient will need a f/u EGD OP -please discontinue bASA until f/u with GI OP - rest of care per primary team Surgery orange will sign off thank you and please reach out with any further questions! The patient seen and was examined. Discussed with Dr. Fran Johnson MD PGY-3, General Surgery I saw and evaluated the patient today. I have reviewed the resident/fellow physician note and agree. Tolerating PO Denies abdominal pain Hold ASA D/c on PPI 40 BID * Samina Nelson MD - 10/04/2023 3:42 PM EDT PROGRESS NOTE - Nutrition Support [address] [address] Name: Beth Brandt [place] [facility] [place] Date: 10/04/2023 Time: 3:42 PM Beth Brandt is a pleasant 78 year old female who is being followed by the Nutrition Support Team. She originally presented as a transfer for continued management of acute GIB s/p endoscopic treatment and was found to have few foci of air adjacent to the 2nd and 3rd parts of the duodenum on admission CTAP concerning for contained perforation. She has subsequently had an NG tube placed and was strict NPO, PPN initiated 10/01. Upper GI series without evidence of leak, team initiated pt on regular diet Planning to discharge soon SUBJECTIVE: Today she is resting comfortably in bed. Ready to eat a regular diet. Denies any pain. CURRENT NUTRITION SUPPORT: PPN PHYSICAL EXAM: Most Recent Vital Signs: BP: 110 mmHg/60 mmHg (10/04/23 1446) Pulse: 79 (10/04/23 1423) Resp: 18 (10/04/23 1423) Temp: 37.28 C (10/04/23 1423) Temp Summary: Temp Min: 37.1 C (98.8 F) Max: 37.7 C (99.9 F) SpO2: 96 % (10/04/23 142) O2 flow rate: Supplemental O2 Delivery: Room Air, None (10/04/23 142) Vital Signs Last 24 Hours: Systolic BP: Most Recent Systolic BP Av.7 mmHg Min: 95 mmHg Max: 141 mmHg Temperature: Most Recent Temperature Av.4 C Min: 37.11 C Max: 37.72 C Pulse: Pulse Av Min: 79 Max: 93 Respirations: Resp Av.7 Min: 16 Max: 18 SpO2: SpO2 Av % Min: 96 % Max: 98 % I/O: Intake/Output Summary (Last 24 hours) at 10/04/2023 1542 Last data filed at 10/04/2023 1052 Gross per 24 hour Intake 1148.79 ml Output -- Net 1148.79 ml Constitutional: no acute distress HEENT: normal: normocephalic, atraumatic; no masses, tenderness, or adenopathy CV: normal rate and rhythm, no murmur, gallops or rub Chest: normal respiratory effort, lungs clear to auscultation and percussion Abdomen: normal: soft, bowel sounds normal, no masses, tenderness or organomegaly Neuro: alert, oriented to person, place, and time Skin: warm, dry, intact LABS: Labs reviewed as indicated below: Phos 3.4, K 3.6, Mg 2.0 IMPRESSION and PLAN: Beth Brandt is a pleasant 78 year old female who is being followed by the Nutrition Support Team. She was initiated on PPN 10/01 due to strict NPO pending further evaluation and treatment of suspected duodenal perforation. Upper GI series 10/02 without evidence of leak so enteric feeds started andPPN discontinued 10/03 Recommended nutritional support: Enteric feeds as tolerated #Nutrition Support ---Agree with discontinuing PPN as patient tolerating enteric feeds and had no history of malnutrition prior ---Can maintain Mg >2.0, K >4.0, Phos >3.0 The patient was discussed with Dr. Saleh. Samina Nelson MD Gastroenterology, PGY-4 Nutrition and Weight Management Department Associated attestation - Afshan Saleh DO - 10/04/2023 6:54 PM EDT I saw and evaluated the patient today. I have reviewed the resident/fellow physician note and agree. Pt diet advanced and doing well this AM. Will allow PPN to run out. Will sign off to floor paperhanger supervisor but please do not hesitate to call back for questions, concerns, or change in clinical status. Afshan Saleh DO Associate Physician Nutrition and Weight Management Department * Al Conrad DO - 10/04/2023 11:10 AM EDT PROGRESS NOTE - RESIDENT - HOSPITAL MEDICINE [facility] [place] [address] Name: Beth Brandt Location: [facility] [place] [facility] Date: 10/04/2023 Time: 11:33 AM Date of Admission: 09/29/2023 Hospital length of stay: 5 days Overnight Events: No acute events overnight. Hemoglobin stable overnight. Subjective: Beth Brandt is feeling better today. No new complaints today. General Surgery reached out to primary team said patient was okay for regular diet and antibiotics could be stopped. Also recommending blood conservation management for anemia. Nurse message later in morning during rounds set patient had infiltrated IV from which the PPN was running. Recommended taking out IV and stopping PPN as she tolerated diet in the morning. BM: x1 overnight. No bright red blood noted, but a bit loose. Objective: Vital Signs: Blood Pressure: 112/71 mmHg Pulse: 93 Temperature: 37.3 C (99.1 F) Respiratory Rate: 18 O2 Saturation: 98 % O2 Flow Rate: Supplemental O2 Delivery: Room Air, None Last 12H: Most Recent Systolic BP Av.7 mmHg Min: 112 mmHg Max: 131 mmHg Last 12H: Pulse Av.7 Min: 81 Max: 93 Last 12H: Most Recent Temperature Av.2 C Min: 37.11 C Max: 37.33 C Intake & Output: Intake/Output Summary (Last 24 hours) at 10/04/2023 1133 Last data filed at 10/04/2023 1052 Gross per 24 hour Intake 2822.58 ml Output 200 ml Net 2622.58 ml Weight: Wt Readings from Last 3 Encounters: 10/03/23 66 kg (145 lb 9.6 oz) 09/25/23 66.9 kg (147 lb 6.4 oz) 09/05/23 67.7 kg (149 lb 4 oz) Physical Examination: General: Well developed, no acute distress, lying comfortably in bed HEENT: neck is supple, sclera white, nares patent, ears non deformed Cardiovascular: RRR, S1 and S2 present, no murmurs or gallops, no LE edema, distal pulses 2+, systolic murmur on L and R sternal borders Respiratory: No acute respiratory distress, clear to auscultation bilaterally, no wheezes, rhonchi,or rales Abdomen: Soft, non-tender, non-distended, no rigidity Musculoskeletal: No joint deformity, appears to have normal tone Neuro: no focal deficits, moves all extremities equally and spontaneously Skin: No obvious rashes or skin lesions Psych: mood normal, thought process intact Laboratory Values: reviewed. Blood Gas: No results in the last 7 days - inpatent use only Chemistry Panel: Lab results within last 7 days (see chart for full results) Units 10/04/23 0809 10/03/23 19310/03/23 0711 10/02/23 1944 10/02/23 0647 10/01/23 0448 09/30/23 0530 Sodium mmol/L 138 136 137 134* 134* 136 137 Potassium mmol/L 3.6 4.2 3.3* 4.1 3.6 3.7 3.5 Chloride mmol/L 104 103 105 103 104 106 106 CO2 mmol/L 22 20* 20* 13* 16* 21* 22 BUN mg/dL 8 9 9 11 13 11 7 Creatinine mg/dL 0.5 0.5 0.6 0.6 0.6 0.6 0.6 Estimated Glomerular Filtration Rate mL/min >90 >90 >90 >90 >90 >90 >90 Glucose mg/dL 136* 166* 111 78 71 76 89 Calcium mg/dL 8.4 8.3* 7.9* 7.7* 7.7* 7.8* 7.9* Magnesium mg/dL 2.0 1.9 2.1 2.0 2.2 2.3 2.3 Phosphorus mg/dL 3.4 4.5 2.7 2.8 2.9 3.4 3.5 Anion Gap mmol/L 12 13 12 18* 14 9 9 Complete Blood Count: Lab results within last 7 days (see chart for full results) Units 10/04/23 0809 10/03/23 19310/03/23 0711 10/02/23 1948 10/02/23 0647 10/01/23 2101 10/01/23 0725 WBC K/uL 4.75 4.95 4.70 13.11* 6.25 6.75 6.01 HGB g/dL 8.8* 8.0* 7.6* 7.7* 8.0* 7.9* 8.5* HCT % 27.6* 25.9* 23.4* 23.6* 26.4* 24.5* 26.0* PLT K/uL 128* 114* 114* 106* 119* 117* 111* MCV fL 95.5 98.1 95.5 94.4 99.2 94.6 93.5 Cardiac Studies: No results in the last 7 days - inpatent use only Coagulation Studies: Lab results within last 7 days (see chart for full results) Units 09/29/23 0501 Prothrombin Time seconds 14.4 INR 1.1 aPTT seconds 26 Liver Function Panel: Lab results within last 7 days (see chart for full results) Units 10/04/23 0809 10/03/23 0912 10/03/23 0711 10/02/23 0647 10/01/23 0448 09/30/23 0530 09/29/23 0501 Albumin g/dL 3.4* -- 3.0* 3.2* 2.9* 2.8* 2.9* Protein g/dL 5.4* -- 4.9* 4.9* 4.7* 4.8* 4.5* Bilirubin, Total mg/dL 0.3 -- 0.3 0.5 0.5 0.6 0.6 Bilirubin, Direct mg/dL <0.2 -- <0.2 <0.2 <0.2 <0.2 0.2 AST U/L 18 -- 18 20 20 22 26 ALT U/L 13 -- 13 16 14 18 27 Alkaline Phosphatase U/L 97 -- 91 91 89 90 78 Triglycerides mg/dL -- 146 -- -- -- -- -- Infectious Studies: Lab results within last 7 days (see chart for full results) Units 09/30/23 0530 09/29/23 2331 09/29/23 1718 09/29/23 1138 09/29/23 0500 Lactate mmol/L 0.7 0.8 1.0 0.9 1.0 Cultures: reviewed. No results in the last 7 days - inpatent use only Recent Cultures (2 Weeks) No lab values to display. Radiographic Studies: reviewed. FLUORO UGI SINGLE CONTRAST Result Date: 10/03/2023 IMPRESSION No evidence of leak. Mild narrowing of the post bulbar duodenum at the level of the clip, likely inflammatory I have personally reviewed this examination and agree with the resident/fellowphysician's interpretation. Impression and Plan: Principal Problem: Gastrointestinal hemorrhage associated with duodenal ulcer (POA: Yes) Active Problems: Closed displaced fracture of posterior wall of right acetabulum (HCC) (POA: Yes) Duodenal perforation (HCC) (POA: Yes) Resolved Problems: * No resolved hospital problems. * POA = Present On Admission Beth Brandt is a 78F with PMHx significant for SSS s/p PPM, hypothyroidism, history of carotidstenosis, recent trauma admission for right hip fracture s/p fixation who is admitted for acute blood loss anemia in the setting of recent bleeding duodenal ulcer s/p cautery and clip with new contained duodenal perforation, now transferred to med-surg from [facility] for medical management. ABLA 2/2 Bleeding duodenal ulcer with visible vessel s/p cautery and clip Contained duodenal perforation S/p 6 units PRBCs and 1 unit cryo at OSH Sepsis secondary to ulcer perforation (resolved) Patient transferred from ICU. No melenic stools noted this morning. Upper GI series from 10/02 shows no evidence of leak but mild narrowing of the postbulbar duodenum at the level of the clip which is likely inflammatory. General Surgery not concerned with findings. Continue conservative management.Can start p.o. medications. - switch IV PPI BID to PO (omeprazole 40 BID) - d/c CTX and flagyl - s/p UGI series on 10/02 with results as above - Gen Surg on board--> contonue conservative management - Start heart healhy diet; tolerated breakfast - restart PART TIME FLEXIBLE CLERK aspirin - GI nutrition following; informed of decision to turn off PPN and in agreement if tolerating diet - dentures recommending blood conservation management consult; consult placed - monitor BMP, Mg, Phos q12 Chronic Problems: Carotid stenosis, SSS s/p ppm, HLD: restart PART TIME FLEXIBLE CLERK aspirin and statin Hypothyroidism: restarted oral levothyroxine Misc: Diet: strict heart healthy diet Bowel Regimen: none Last Bowel Movement: 10/03 PT/OT: PT/OT following GI prophylaxis: Omeprazole 40 twice daily p.o. VTE Prophylaxis: Holding d/t bleeding risk Code Status: FULL Anticipated Discharge: 1-2 days List of services consulted/following: GENERAL SURGERY CONSULT IP ADULT PHYSICAL THERAPY CONSULT IP ADULT OCCUPATIONAL THERAPY CONSULT IP PARENTERAL NUTRITION SUPPORT (ADULT) CONSULT IP BLOOD MANAGEMENT CONSULT IP Patient will be seen and examined by attending physician, Camila Lee MD Associated attestation - Camila Lee MD - 10/04/2023 12:58 PM EDT I saw and evaluated the patient today. I have reviewed the resident/fellow physician note and agree. * Reny Contreras DO - 10/04/2023 5:23 AM EDT PROGRESS NOTE - Trauma/Emergency Surgery [facility] [place] [address] Name: Beth Brandt [place]: [facility] [place] Date: 10/04/2023 Time: 5:23 AM DIAGNOSIS: C/f contained duo perf & UGIB SUBJECTIVE: No acute events overnight. UGI completed on 10/02 with no evidence of leak, mild narrowing of the post bulbar duodenum appreciated. Started on CLD, tolerating well. Last Bowel Movement: 10/03/23 (per [facility]) OBJECTIVE: Most Recent Vital Signs: BP: 128 mmHg/59 mmHg (10/04/23233) Pulse: 81 (10/04/23233) Resp: 18 (10/04/23233) Temp: 37.11 C (10/04/23233) Temp Summary: Temp Min: 37.1 C (98.8 F) Max: 37.7 C (99.9 F) SpO2: 97 % (10/04/23233) O2 flow rate: Supplemental O2 Delivery: Room Air, None (10/04/23233) Vital Signs Last 24 Hours: Systolic BP: Most Recent Systolic BP Av.7 mmHg Min: 126 mmHg Max: 141 mmHg Temperature: Most Recent Temperature Av.4 C Min: 37.11 C Max: 37.72 C Pulse: Pulse Av.8 Min: 77 Max: 85 Respirations: Resp Av.5 Min: 16 Max: 18 SpO2: SpO2 Av.3 % Min: 96 % Max: 100 % In / Out Past 8 Hrs: In / Out Past 24 Hrs: Intake/Output Summary (Last 24 hours) at 10/04/2023 0523 Last data filed at 10/04/2023 0400 Gross per 24 hour Intake 2341.66 ml Output 300 ml Net 2041.66 ml Physical Exam: Constitutional: no acute distress HEENT: normocephalic, atraumatic Eyes: sclera and conjunctiva normal CV: normal rate Chest: normal respiratory effort Abdomen: soft, nondistended Extremities: no clubbing, cyanosis, or edema, otherwise grossly normal, warm, and dry Skin: warm, dry Neuro: alert, oriented LABS: Labs reviewed as indicated below: CBC Lab Results Component Value Date/Time WBC 4.95 10/03/2023 07:32 PM WBC 4.93 03/06/2015 10:43 AM HGB 8.0 (L) 10/03/2023 07:32 PM HGB 12.3 03/06/2015 10:43 AM HCT 25.9 (L) 10/03/2023 07:32 PM HCT 37.9 03/06/2015 10:43 AM PLT 114 (L) 10/03/2023 07:32 PM PLT 175 03/06/2015 10:43 AM BMP Lab Results Component Value Date/Time NA 136 10/03/2023 07:32 PM NA 142 10/22/2019 09:35 AM POTASSIUM 4.2 10/03/2023 07:32 PM POTASSIUM 4.0 09/05/2023 08:43 PM POTASSIUM 4.5 10/22/2019 09:35 AM CL 103 10/03/2023 07:32 PM CL 108 (H) 10/22/2019 09:35 AM CO2 20 (L) 10/03/2023 07:32 PM CO2 24 10/22/2019 09:35 AM BUN 9 10/03/2023 07:32 PM BUN 14 10/22/2019 09:35 AM CREAT 0.5 10/03/2023 07:32 PM CREAT 1.0 10/22/2019 09:35 AM Ca, Mg, Phos Lab Results Component Value Date/Time CA 8.3 (L) 10/03/2023 07:32 PM CA 9.6 10/22/2019 09:35 AM MG 1.9 10/03/2023 07:32 PM PHOSPHORUS 4.5 10/03/2023 07:32 PM IMAGING: Reviewed IMPRESSION: Principal Problem: Gastrointestinal hemorrhage associated with duodenal ulcer Active Problems: Closed displaced fracture of posterior wall of right acetabulum (HCC) Duodenal perforation (HCC) Resolved Problems: * No resolved hospital problems. * 78 y/o female with UGIB s/p EGD and control of actively bleeding duodenal ulcer with cautery & clip, noted to have downtrending hgb, initial imaging concerning for contained duodenal perforation. 78 y/o female with UGIB s/p EGD and control of actively bleeding duodenal ulcer with cautery & clip, noted to have downtrending hgb, imaging concerning for contained duodenal perforation. PLAN: - UGI negative for leak - from surgery standpoint no indication for continued antibiotics - Started on CLD on 10/02, advance to regular - continue IV PPI - Recommend blood management team consult - rest of care per primary team The patient seen and was examined. Discussed with Dr. Bruno. Reny Contreras DO 10/04/2023 3:08 PM Associated attestation - Lauro Bruno MD - 10/04/2023 3:44 PM EDT I saw and evaluated the patient today. I have reviewed the resident/fellow physician note and agree. UGI yest s leak. Abdomen soft, benign. + BM. Systemically well, no signs toxicity. Kathi clrs, OK to adv diet as kathi. Cont PPI bid * Sergio Bhatia, - 10/03/2023 10:48 AM EDT PROGRESS NOTE - Nutrition Support [address] [address] Name: Beth Brandt [place] [facility] [place] Date: 10/03/2023 Time: 10:48 AM Beth Brandt is a pleasant 78 year old female who is being followed by the Nutrition Support Team. She originally presented as a transfer for continued management of acute GIB s/p endoscopic treatment and was found to have few foci of air adjacent to the 2nd and 3rd parts of the duodenum on admission CTAP concerning for contained perforation. She has subsequently had an NG tube placed and has been strict NPO pending upper GI series to further evaluate. PPN initiated 10/01. SUBJECTIVE: Today she is resting comfortably in bed. Per nursing has minimal abdominal pain. Continues to have dark bowel movements. CURRENT NUTRITION SUPPORT: PPN PHYSICAL EXAM: Most Recent Vital Signs: BP: 131 mmHg/64 mmHg (10/03/23713) Pulse: 77 (10/03/23713) Resp: 18 (10/03/23713) Temp: 37.11 C (10/03/23713) Temp Summary: Temp Min: 36.9 C (98.4 F) Max: 37.6 C (99.7 F) SpO2: 97 % (10/03/23713) O2 flow rate: Supplemental O2 Delivery: Room Air, None (10/03/23 0900) Vital Signs Last 24 Hours: Systolic BP: Most Recent Systolic BP Av.3 mmHg Min: 126 mmHg Max: 140 mmHg Temperature: Most Recent Temperature Av.3 C Min: 36.89 C Max: 37.61 C Pulse: Pulse Av.8 Min: 77 Max: 85 Respirations: Resp Av.8 Min: 17 Max: 18 SpO2: SpO2 Av.3 % Min: 97 % Max: 98 % I/O: Intake/Output Summary (Last 24 hours) at 10/03/2023 1048 Last data filed at 10/03/2023 0600 Gross per 24 hour Intake 998.14 ml Output 100 ml Net 898.14 ml Constitutional: no acute distress HEENT: normal: normocephalic, atraumatic; no masses, tenderness, or adenopathy CV: normal rate and rhythm, no murmur, gallops or rub Chest: normal respiratory effort, lungs clear to auscultation and percussion Abdomen: normal: soft, bowel sounds normal, no masses, tenderness or organomegaly Neuro: alert, oriented to person, place, and time Skin: warm, dry, intact LABS: Labs reviewed as indicated below: Low phos 2.7, K 3.3 IMPRESSION and PLAN: Beth Brandt is a pleasant 78 year old female who is being followed by the Nutrition Support Team. She was initiated on PPN 10/01 due to strict NPO pending further evaluation and treatment of suspected duodenal perforation. Upper GI series to be completed today 10/02 to further assess trajectory for enteric feeds. Recommended nutritional support: PPN #Nutrition Support Formulation: Fluid: 1500mL A4 / D5 / L3 + acetate (increase from 45/L --> 50/L) + MVI - Start nutrition support as above. - Stop IVF when PPN is started. - Check BMP, magnesium, and phosphorous daily. - Check iCa if serum calcium low. - Check triglyceride weekly. - Have the patient weighed daily or twice weekly. - Accurate intake and output should be maintained. #Low bicarbonate HCO3 improved 16 > 20, will increase acetate as above. #Hypophosphatemia Low phosphate 2.7 10/02, will increase amount in PPN formula. - increase phos from 8mmol/L to 12 mmol/L #Hypokalemia Low potassium 3.3 10/02, will increase amount in PPN formula. - increase potassium from 20mEq/L to 30mEq/L Thank you for the consult. We will follow the patient along with you. The patient was discussed with Sergio Bhatia DO. Samina Nelson MD Gastroenterology, PGY-4 Nutrition and Weight Management Department Staff: I saw and evaluated the patient today. I have reviewed the trainee note and agree. --CDS Sergio Bhatia DO, FACN, FACP Director, Center for Nutrition and Weight Health Officer, Department of Gastroenterology/Nutrition * Dominga Silva DO - 10/03/2023 6:00 AM EDT PROGRESS NOTE - RESIDENT - [facility] MEDICINE [facility] [place] [address] Name: Beth Brandt Location: [facility] [place] Date: 10/03/2023 Time: 8:13 AM Date of Admission: 09/29/2023 Hospital length of stay: 4 days Overnight Events: No acute events overnight. Shortly after starting PPN, patient had an episode of back spasm which resolved after back massaging and repositioning. Subjective: Beth Brandt is feeling about the same today. No new complaints today. Denies abdominal pain, nausea/vomiting, muscles spasms, weakness.. NG tube shows dark brown drainage. BM: x1 overnight. No bright red blood noted. Coffee colored stool. Objective: Vital Signs: Blood Pressure: 131/64 mmHg Pulse: 77 Temperature: 37.1 C (98.8 F) Respiratory Rate: 18 O2 Saturation: 97 % O2 Flow Rate: Supplemental O2 Delivery: Room Air, None Last 12H: Most Recent Systolic BP Av.3 mmHg Min: 131 mmHg Max: 140 mmHg Last 12H: Pulse Av.7 Min: 77 Max: 84 Last 12H: Most Recent Temperature Av.2 C Min: 36.89 C Max: 37.5 C Intake & Output: Intake/Output Summary (Last 24 hours) at 10/03/2023 0813 Last data filed at 10/03/2023 0600 Gross per 24 hour Intake 2835.23 ml Output 100 ml Net 2735.23 ml Weight: Wt Readings from Last 3 Encounters: 10/03/23 66 kg (145 lb 9.6 oz) 09/25/23 66.9 kg (147 lb 6.4 oz) 09/05/23 67.7 kg (149 lb 4 oz) Physical Examination: General: Well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 Vital Signs: BP: / 147/80 Pulse: 84 Resp: 17 Temp: 36.9 Temp Summary: No data recorded SpO2: 96 O2 flow rate: Supplemental O2 Delivery: Vent Settings: Constit: mildly ill appearing, slightly pale in appearance, appears stated age HEENT: AT/NC, PERRL Lungs: CTA b/l no w/r/r Heart: RRR, S1 S2 no m/r/g Abd: Mild abdominal pain to palpation, BS present Skin: Warm, slightly pale, no mottling Neuro: AAO x 3, DOBSON, FC Psych: Pleasant LABORATORY VALUES: reviewed RADIOGRAPHIC STUDIES: reviewed Patient is being admitted for: GI bleed Active Problems: Principal Problem: Gastrointestinal hemorrhage associated with duodenal ulcer (POA: Unknown) POA = Present On Admission SYSTEM BASED PLAN: Neuro: Stable - CAM - ICU - Pain control right hip Resp: Stable, hx of Asthma - Chest PT/Flutter/Incentive Cardiovascular: Stable, hx of SSS s/p PPM, HLD - HD Stable - Hold po meds GI/Hepatobiliary: Bleeding Duodenal Ulcer s/p clip - NPO - S/p OSH GI EGD Procedure - Sent to [facility] for possible IR intervention - page sent at 5:51 AM. - Received Protonix at OSH, PPI Infusion, hold on bolus Renal/Metabolic/Fluids: Stable - MIVF - Check lytes ID: Stable Endocrine: hx of Hypothyroidism - Hold po med Heme: Acute blood loss anemia secondary to gastric ulcer bleed - s/p 5 units prbc and one unit cryo at OSH - Known Anti bodies in blood M/S: Possible Seroma vs abscess on CT - may need need ortho to comment GLOBAL ISSUES: Analgesia: protocol with control Sedation: N/A Delirium/Confusion Assessment Method for ICU (CAM-ICU): CAM-ICU negative HOB Elevation: greater than 30 degress Nutrition: NPO DVT Prophylaxis: pneumatic compression devices alone due to chemoprophylaxis contraindication Stress Ulcer Prophylaxis: PPI therapy for other indication Glycemic Control: controlled - not in protocol Central Line Necessity Reviewed: N/A Mendoza: N/A Disposition: keep in ICU Patient's decisional capacity: has capacity to make decisions Communication with Patient/Family: Brief Family Communication. Date and time of meeting: Daughter updated by me, all questions answered. Goals of Care: stabilize hemodynamic status Pt seen, examined and discussed with Dr. Laird. I have provided critical care diagnostic services for hemorrhage and therapeutic services with volume resuscitation, extensive interpretation of multiple databases for this patient on the date referenced above. Time devoted to patient care services described in this note equal: 40 minutes total critical care time exclusive of time spent performing procedures or time spent by another provider or resident. Associated attestation - Kaylin Laird MD - 09/29/2023 6:47 AM EDT I have reviewed the advanced practitioner's documentation on the date of service referenced in note, and I agree with, and take responsibility for the plan of care. See attestation at bottom of note. documented in this encounter Consult Notes * Barney Persaud RN - 10/04/2023 11:19 AM EDTAssociated Order(s): BLOOD MANAGEMENT CONSULT IP CONSULT - Patient Blood Management [address] [address] Name: Beth Brandt [place] [facility] A564/B Date: 10/04/2023 Time: 11:19 AM REQUESTING SERVICE: [facility] Medicine mayi REASON FOR CONSULT: new evaluation inpatient, anemia Recent hemorrhage: yes History of prior anemia: yes Recent surgery: no Anemia Evaluation: Latest Reference Range & Units 09/29/23 05:01 10/01/23 07:25 HGB 12.0 - 15.3 g/dL 8.1 (L) 8.5 (L) HCT 36.0 - 45.2 % 24.2 (L) 26.0 (L) (L): Data is abnormally low Current Patient Medications: Medications that may impair hemostasis: bASA Medications that may impair iron absorption: protonix Patient Refused Blood Transfusion? (e.g. Adventist): no Possible Contributing Factors: unclear Treatment Recommendations: If no active hemorrhage, consider PRBC transfusion only for severe anemia and use a 1 unit PRBC dose followed by a repeat clinical assessment. For reversal of anticoagulation therapy, use Reversal of Anticoagulation order set. Limit and coordinate blood draws to prevent iatrogenic anemia. Add on anemia labs, will f/u on results as indicated. Latest Reference Range & Units 10/04/23 08:09 Iron 33 - 151 ug/dL 40 Iron Binding Capacity 250 - 425 ug/dL 224 (L) Transferrin Saturation Percent 15 - 55 % 18 Ferritin 13 - 150 ng/mL 732 (H) Vitamin B12 232 - 1,245 pg/mL 618 Folic Acid >4.5 ng/mL 19.2 Immature Reticuloctye Fraction 2.5 - 20.6 % 23.2 (H) Reticulocyte Hemoglobin 29.7 - 37.4 pg 34.5 (L): Data is abnormally low (H): Data is abnormally high No anemia deficiencies noted at present. Follow-up Recommendations: Follow up with PCP for further assessment/management of anemia post discharge. Thank you for allowing Blood Management to participate in the care of this patient. * Sergio Bhatia DO - 10/02/2023 1:04 PM EDTAssociated Order(s): PARENTERAL NUTRITION SUPPORT (ADULT) CONSULT IP CONSULT - Nutrition Support [address] [address] Name: Beth Brandt [place] [facility] A564/A Date: 10/02/2023 Time: 1:04 PM REQUESTING SERVICE: Mike Thomson REASON FOR CONSULT: Parenteral nutrition evaluation HPI: Beth Brandt is a 78 year old female who is seen at the request of primary team for evaluation of parenteral nutrition candidacy. She originally presented to [facility] with reports of black stools at her rehab facility on 09/26. She underwent upper endoscopy 09/27 which revealed a duodenal ulcer and accompanying bleeding vessel that was treated with bipolar cautery and a clip. Due to persistent bleeding, persistent anemia and syncopepatient transferred here for possible IR intervention on 09/28. CTA abd/pelvis showed no acute arterial extravasation though did reveal a few foci of air adjacent to the 2nd and 3rd parts of the duodenum concerning for contained perforation. She has subsequently had an NG tube placed and has been strict NPO. Planning on upper GI series tomorrow 10/02. On my evaluation, patient calm with abdominal aching 04/08. She reports not having eaten solids since prior to 09/26 and was not eating as much as she wanted to prior to that. Denies any nausea or vomiting. Last bowel movement was yesterday, black in color. Today has not yet had a bowel movement or anything to eat. PAST MEDICAL HISTORY: Past Medical History: Diagnosis [...] performed by Justice Hawthorne MD at [facility] COLONOSCOPY, DIAGNOSTIC (RECTUM) 09/16/2019 biopsies show adenomatous polyps/recall 5 years/COLONOSCOPY FLEXIBLE PROXIMAL DIAGNOSTIC performed by Justice Hawthorne MD at [facility] PACEMAKER INSERTION, EXISTING MULTIPLE LEAD 04/27/2011 [employer] Serial#[id number] Model#[id number] REMOVE CATARACT, INSERT LENS PROSTH Bilateral REPAIR HIP WALL FRACTURE W/FIXATION Right 09/05/2023 OPEN TREATMENT POSTERIOR OR ANTERIOR ACETABULAR WALL performed by Ranjeet Chowdhury Jr., MD at [place] [facility] REPAIR TIBIA SHAFT FRACTURE Left 2008 tib/fib FAMILY HISTORY: Family History Problem Relation Name Age of Onset Heart Disorder Grandfather (Paternal) Heart Disorder Grandfather (Maternal) Thyroid Disorder Mother hypothyroidism Breast Cancer Mother 60 Cancer Brother 50 colon, thyroid Bipolar Disorder Father SOCIAL HISTORY: Social History Tobacco Use Smoking status: Never Smokeless tobacco: Never Vaping Use Vaping status: Never Used Substance Use Topics Alcohol use: No Drug use: No ROS: Constitutional: (-) fever chills sweats or weight loss Eyes: (-) negative, no amaurosis fugax, pain, blurred vision, or redness Cardiovascular: (-) negative: no chest pain, dyspnea, syncope, or palpitations Pulmonary: (-) negative: no cough, wheezing, or shortness of breath Abdominal/GI: (+) see HPI Skin: (-) negative: no rash or new or changing moles Neurology: (-) negative: no focal neurologic defect Psychiatry: (-) negative: no depression or anxiety Review of systems otherwise negative. PHYSICAL EXAMINATION: Most Recent Vital Signs: BP: 125 mmHg/60 mmHg (10/02/23 1028) Pulse: 83 (10/02/23 1028) Resp: 17 (10/02/23 102) Temp: 37 C (10/02/23 102) Temp Summary: Temp Min: 37 C (98.6 F) Max: 37.7 C (99.9 F) SpO2: 97 % (10/02/23 102) O2 flow rate: Supplemental O2 Delivery: Room Air, None (10/02/23 102) Vital Signs Last 24 Hours: Systolic BP: Most Recent Systolic BP Av mmHg Min: 117 mmHg Max: 139 mmHg Temperature: Most Recent Temperature Av.3 C Min: 37 C Max: 37.72 C Pulse: Pulse Av.3 Min: 83 Max: 97 Respirations: Resp Av Min: 17 Max: 19 SpO2: SpO2 Av.6 % Min: 95 % Max: 99 % Constitutional: no acute distress HEENT: normal: normocephalic, atraumatic; no masses, tenderness, or adenopathy Eyes: sclera and conjunctiva normal CV: normal rate and rhythm, no murmur, gallops or rub Chest: normal respiratory effort, lungs clear to auscultation and percussion Abdomen: normal: soft, bowel sounds normal, no masses, tenderness or organomegaly Skin: warm, dry, intact: Neuro: alert, oriented to person, place, and time, normal mental status exam, gait normal, reflexesnormal and symmetric, sensory normal WEIGHT HISTORY: Last inpatient weight (bed weight) Weight: 70 kg (154 lb 5.2 oz) (10/01/23 0400) 09/05/23: 149 lbs 09/25/23: 147 lbs USUAL BODY WEIGHT: 147lb, 66.6 kg IDEAL BODY WEIGHT: 115lbs, 52kg ADJUSTED IDEAL BODY WEIGHT: 128lbs, 58 kg HEIGHT: 1.6 m CURRENT ORAL INTAKE: strict NPO CURRENT NUTRITION SUPPORT: none ENTERAL ACCESS: nasogastric VENOUS ACCESS: peripheral IV LABS: Labs reviewed as indicated below: Na 134, K 3.6, Cl 104, HCO3 16, BUN 13, Cr 0.6, Ca 7.7, Mg 2.2, Phos 2.9 ASSESSMENT: Beth Brandt is a pleasant 78 year old female who has been assessed by the nutrition support team for parenteral nutrition. She presented as a transfer following an upper GIB who was found to have suspected duodenal perforation. She is awaiting further diagnostics and is strict NPO.Will initiate on PPN today 10/02/23 pending clinical course. Estimated calorie needs: 5972-9072 based on 20-30 Kcal of usual weight (67kg) Estimated protein needs: 101g based on 1.5 grams/kg of usual weight (67kg) Estimated lipid needs: 40-60g based on 0.3 x total estimated calorie needs Estimated carbohydrate needs: 157-355g RECOMMENDATIONS: Recommended nutritional support: PPN #Nutrition Support Formulation: Fluid: 1500mL A4 / D5 / L3 + acetate + MVI - Start nutrition support as above. - Stop IVF when PPN is started. - Check BMP, magnesium, and phosphorous daily. - Check iCa if serum calcium low. - Check triglyceride weekly. - Have the patient weighed daily or twice weekly. - Accurate intake and output should be maintained. #Low bicarbonate HCO3 16, will add acetate as above. Thank you for the consult. We will follow the patient along with you. The patient was discussed with Sergio Bhatia DO. Staff: I saw and evaluated the patient 10/02/23. I have reviewed the trainee note and agree. --CDS Sergio Bhatia DO, FACN, FACP Director, [facility] Weight Health Officer, Department of Gastroenterology/Nutrition * Marlyn Lyman, OTR/L - 10/02/2023 8:41 AM EDTAssociated Order(s): ADULT OCCUPATIONAL THERAPY CONSULT IP GENERAL EVALUATION - Occupational Therapy [facility] [address] Name: Beth Brandt [place]: [facility] A564/A Date: 10/02/2023 Time: 3:08 PM Beth Brandt is a 78 year old female. Patient Status: Inpatient Insurance: Payor: MEDICARE Plan: MEDICARE A AND B Product Type: *No Product type* Payor: GENERIC COMMERCIAL Plan: GENERIC COMMERCIAL Product Type: *No Product type* Patient Seen: at bedside, nursing cleared patient for therapy Patient Identified By: Name, ID Band and Date Diagnosis: GI Bleed (10/02/23840) Status of treatment: Evaluation completed (10/02/23840) Orders: OT evaluation and treatment;OT OOB (10/02/23840) Weight Bearing Status: Weight bearing as tolerated (10/02/23840) Precautions: Alarms;Falls;Safety;Total hip;NG tube (previous Right total hip) (10/02/23840) Total Treatment Time: 15 (10/02/23840) Past Medical History: Past Medical History: Diagnosis [...] performed by Justice Hawthorne MD at [facility] COLONOSCOPY, DIAGNOSTIC (RECTUM) 09/16/2019 biopsies show adenomatous polyps/recall 5 years/COLONOSCOPY FLEXIBLE PROXIMAL DIAGNOSTIC performed by Justice Hawthorne MD at [facility] PACEMAKER INSERTION, EXISTING MULTIPLE LEAD 04/27/2011 [employer] Serial#[id number] Model#[id number] REMOVE CATARACT, INSERT LENS PROSTH Bilateral REPAIR HIP WALL FRACTURE W/FIXATION Right 09/05/2023 OPEN TREATMENT POSTERIOR OR ANTERIOR ACETABULAR WALL performed by Ranjeet Chowdhury Jr., MD at [place] [facility] REPAIR TIBIA SHAFT FRACTURE Left 2008 tib/fib Social History/Disposition Lives with: Alone (10/02/23829) Assistance available: Yes (10/02/23829) Dwelling type: Assisted living facility (10/02/23829) Prior Level of Function Reported by: Patient (10/02/23840) Ambulation: Ambulatory with device (10/02/23840) Ambulatory Device: Rolling walker (10/02/23840) Grooming: Independent (10/02/23840) Bathing: Independent (10/02/23840) Dressing: Independent (AE for LE dressing) (10/02/23840) Feeding: Independent (10/02/23840) Toileting: Independent (10/02/23840) Observations Consciousness: Alert (10/02/23840) Orientation: Oriented times 4 (10/02/23840) Psychosocial: Patient can communicate basic needs (10/02/23840) Sitting posture: Forward head;Rounded shoulders (10/02/23840) Standing posture: Forward head;Rounded shoulders (10/02/23840) Safety awareness: Needs cueing supervision. (10/02/23840) Other Findings Endurance: Fair (10/02/23840) Coordination: Intact (10/02/23840) Current Functional Status: Bilateral Upper Extremity Range of Motion: WFL (10/02/23840) Strength Assessment: (3+/5) (10/02/23840) Self Care Able to provide self care: Yes (10/02/23840) Grooming: Supervision (Please comment) (10/02/23840) Dressing Upper Body: Supervision (Please comment) (10/02/23840) Lower Body: Dependent (10/02/23840) Functional Ambulation Assistive Device: Rolling walker (10/02/23840) Distance in feet:: 10 (10/02/23840) Level of Assistance: Supervision (Please Comment) (10/02/23840) OT Transfers Sit-Stand: Supervision (Please comment) (10/02/23840) Stand-Sit: Supervision (Please comment) (10/02/23840) Balance Sit (Static): Fair (10/02/23840) Sit (Dynamic): Fair (10/02/23840) Stand (Static): Fair (10/02/23840) Stand (Dynamic): Fair (10/02/23840) Alarm Status Patient positioned in: Chair (10/02/23840) With: Pressure pad alarm intact and functioning and call scott in reach (10/02/23840) Patient and Family Goals: to get well Patient Education Education Topic: Role of OT;Plan of care goals (10/02/23840) Review of Precautions: Safety;Fall (10/02/23840) Barriers to learning: Medical status (10/02/23840) Preferred learning method: Combination (10/02/23840) Treatment Provided: Evaluation Moderate Complexity 15 minutes - 87740: Patient was cooperative during treatment session. Moderate complexity evaluation performed and 3-5 activity limitations were identified, including ADL deficit, functional mobility deficit, bed mobility deficit, decreased strength, decreased endurance, and impaired balance. Minimal or moderate modification of the functional task was necessary to complete the evaluation. Deficits Requiring O.T. Treatment: Deficits requiring O.T. treatment needs: ADL/self-care;Balance;Endurance;Functional mobility;Safety;Upper extremity strength;Weakness (10/02/23840) Goal Time Frame: 8 visits Assessment: Pt is a 78 year old female admitted to [facility] with a dx of GI bleed. Pt is also a previousright total hip and needs to follow total hip precautions. Prior to admission, pt lived at an [facility] where she reports using a RW for mobility and being independent for LE dressing (pt uses AE for dressing tasks). Pt OOB to chair upon therapist arrival. Pt completed grooming and UE tasks with supervision and dependence for LE dressing, as pt does not have AE currently in hospital. Pt completed sit to stand transfer from chair with supervision. Pt completed mobility in room using RW with supervision. Pt would benefit from skilled OT services in order to increase independence and facilitate a safe transition to next level of care. Please consider return to facility upon discharge. Goals: BUE Strength/ROM Increase BUE strength to at least one muscle grade. ADLs Increase UE dressing to independent. Increase UE bathing to independence. Increase LE dressing to Min A with AE. Increase LE bathing to Min A with AE. Increase toileting tasks to supervision Increase grooming and basic hygiene tasks while in stance at sink with independence. Bed Mobility/Functional Mobility Increase bed mobility to supervision. Increase functional mobility using the least restrictive device to mod I. Functional Transfers Increase functional sit to stand transfers during ADLs to independence. Increase transfers to toilet to independence. Increase transfers from bed to chair with independence. Balance Increase sitting balance at EOB to fair+ during ADLs. Increase standing balance to fair+ during ADLs. Treatment Plan: Safety, Bed mobility training, Functional Ambulation, Transfer training, Upper extremity strengthening, Balance activities, ADL training , and Endurance Anticipated Frequency (on eval): 1 to 3 times per week (10/02/23840) AM-PAC Help From Another Person Eating Meals: A little (10/02/23840) Help From Another Person Taking Care of Personal Grooming: A little (10/02/23840) Help From Another Person To Put On/Take Off Upper Body Clothing: A little (10/02/23840) Help From Another Person To Put On/Take Off Lower Body Clothing: Total (10/02/23840) Help From Another Person Toileting: A lot (10/02/23840) Help From Another Person Bathing: A lot (10/02/23840) OT AM-PAC Score: 14 (10/02/23840) OT AM-PAC t-Scale Score: 33.39 (10/02/23840) A portion of this AM-PAC assessment not scored based on functional assessment, rather clinical decsion making utilized based on current findings and/or prior level of function. Please refer to futureAM-PAC calculations of functional ability as they become available. * Gisell Almendarez PT - 10/02/2023 8:30 AM EDTAssociated Order(s): ADULT PHYSICAL THERAPY CONSULT IP I, Gisell Almendarez PT, DPT, supervised and was present for the duration of the following session. I also read, agree with, and endorse the findings of the following therapy note. Gisell Almendarez PT, DPT [facility] GENERAL EVALUATION - Physical Therapy [address] [address] Name: Beth Brandt [place]: [facility] A564/A Date: 10/02/2023 Time: 829 Beth Brandt is a/an 78 year old female. Patient Status: Inpatient Insurance: Payor: MEDICARE Plan: MEDICARE A AND B Product Type: *No Product type* Payor: GENERIC COMMERCIAL Plan: GENERIC COMMERCIAL Product Type: *No Product type* Patient Seen: at bedside, nursing cleared patient for therapy Patient Identified By: Name, ID Band and Date Diagnosis: gastrointestinal hemorrhage associated with duodenal ulcer (10/02/23829) Status of treatment: Evaluation completed (10/02/23829) Orders: PT evaluation and treatment;OOB (10/02/23829) Weight Bearing Status: Weight bearing as tolerated;RLE (previous total hip sx) (10/02/23829) Precautions: Alarms;Falls;NG tube;Safety;Total hip (prior R total hip) (10/02/23829) Total Treatment Time--free text: 18 (10/02/23829) Past Medical History: Past Medical History: Diagnosis [...] performed by Justice Hawthorne MD at [facility] COLONOSCOPY, DIAGNOSTIC (RECTUM) 09/16/2019 biopsies show adenomatous polyps/recall 5 years/COLONOSCOPY FLEXIBLE PROXIMAL DIAGNOSTIC performed by Justice Hawthorne MD at [facility] PACEMAKER INSERTION, EXISTING MULTIPLE LEAD 04/27/2011 [employer] Serial#[id number] Model#[id number] REMOVE CATARACT, INSERT LENS PROSTH Bilateral REPAIR HIP WALL FRACTURE W/FIXATION Right 09/05/2023 OPEN TREATMENT POSTERIOR OR ANTERIOR ACETABULAR WALL performed by Ranjeet Chowdhury Jr., MD at [place] [facility] REPAIR TIBIA SHAFT FRACTURE Left 2008 tib/fib Subjective: Patient was resting in bed upon arrival and was agreeable to PT evaluation. Social History/Disposition Lives with: Alone (10/02/23829) Assistance available: Yes (10/02/23829) Dwelling type: Assisted living facility (10/02/23829) Prior Level of Function Reported by: Chart review (10/02/23829) Ambulation: Ambulatory with device (since total hip sx) (10/02/23829) Ambulatory Device: Rolling walker (10/02/23829) Observations Consciousness: Alert (10/02/23829) Orientation: Oriented times 4 (10/02/23829) Psychosocial: Patient can communicate basic needs;Patient can converse in a social setting (10/02/23829) Other Findings: Yes (10/02/23829) Findings: Light touch sensation (10/02/23829) Light Touch Sensation Results: Intact;LLE;RLE (10/02/23829) Sitting Posture: Forward head;Rounded shoulders (10/02/23829) Standing Posture: Rounded shoulders;Forward head (10/02/23829) Pain: Patient has complaints of pain. Pain located in her R hip. 04/08 Range of Motion Range of Motion: WFL (10/02/23829) Strength Assessment Strength Assessment: Deficits noted (10/02/23829) WNL, except: LLE;RLE (10/02/23829) LLE: Hip;Knee;Ankle;4/5 (10/02/23829) RLE: Hip;Knee;Ankle;4/ (10/02/23829) P.T. Bed Mobility Supine-Sit: Supervision (10/02/23829) Sit-Supine: Supervision (10/02/23829) Transfers Sit-Stand: Supervision (10/02/23829) Stand-Sit: Supervision (10/02/23829) Ambulation Assist: Supervision (10/02/23829) Distance Ambulated (feet): 250 (10/02/23829) Assistive Device: Rolling walker (10/02/23829) Balance Sit (Static): Fair (10/02/23829) Sit (Dynamic): Fair (10/02/23829) Stand (Static): Fair (10/02/23829) Stand (Dynamic): Fair (10/02/23829) Patient and or Family Goal(s): to get well and to return home Patient Education Review of Precautions: Total Hip;Safety;Fall (R total hip from previous injury; Role of PT) (10/02/23829) Safety Awareness: Patient verbalizes insight of current deficits;Patient demonstrates carryover of insight during functional tasks (10/02/23829) Preferred learning method: Combination (10/02/23829) Barriers to learning: None (10/02/23829) Method of Education: Verbalized to patient (10/02/23829) Topic of Education: Safety with mobility, Goals/plan of care, Use of assistive device, and Fall prevention Method of Education: Verbal discussion and explanation provided to patient: verbalized understanding and or agreement of this information and demonstrated the exercise and or task Treatment Provided: Evaluation Moderate Complexity 18 minutes - 40568: Patient was cooperative and pleasant during treatment session. Moderate complexity evaluation performed and 1-2 personal factorsor comorbidities were identified that will impact plan of care, including lives alone at home and cardiac history. Patient presents with limitations in strength, bed mobility, transfers, gait, balance, endurance, and safety, which will impact plan of care. These limitations will be addressed by thegoals set for this patient. Alarm Status Patient positioned in: Chair (10/02/23829) With: Personal alarm intact and functioning with call scott in reach (10/02/23829) Following session patient seated OOB in chair with chair alarm activated. Chair alarm (did not havecord to plug into call scott system and/or room did not have port to plug cord into call scott system). Treatment Status: Treatment at bedside (10/02/23829) Goals: Demonstrate Bed Mobility with: Sit to supine: modified independent Supine to sit:modified independent Demonstrate transfers with: Sit to stand: modified independent Stand to sit: modified independent Bed to chair: modified independent with least restrictive device Chair to bed: modified independent with least restrictive device Demonstrate ambulation: distance: 350 feet with assistive device: least restrictive device and level of assistance: modified independent Increase Strength: to 5/5 BLE Increase Balance: fair+ sitting / fair+ standing Increase safety: with all functional mobility Time Frame: 10 visits Assessment: Patient is 78 y/o female with dx gastrointestinal hemorrhage associated with duodenal ulcer. Prior to admission, patient resided at an assisted living facility d/t prior R total hip. She was independent with mobility with a rolling walker. Patient currently requires supervision for bed m obility, sitting balance, sit to stands, and ambulation with a rolling walker. Mobility this date limited by weakness and endurance. Ended session with patient resting comfortably in chair. Patient'soverall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 Ancillary Progress Note - Vaishali Sepulveda MSW - 10/04/2023 11:41 AM EDT CARE MANAGEMENT - ADULT TRANSITION NOTE [facility] [place] [address] Name: Beth Brandt [place] [facility] [place] Date: 10/04/2023 Time: 11:41 AM Risk Stratification Risk Stratification Psycho Social / Medical Concerns Identified: Adjustment to illness/injury;Multiple Comorbidities (09/29/23 1348) Readmission Risk Score: 13.86 (10/04/23 0801) AM-PAC Score With Stairs : 19 (10/04/23 0757) Caregiver Information Patient Contacts Name Relation Home Work Mobile Erika Brandt Adult Child [phone] Transition of Care Checklist Transition of Care Checklist (aka Readmission Risk Score) Discharge Disposition: Post-Acute (09/29/23 1349) Post Acute: (10) (09/29/23 1349) Narrative: Gale [phone] called [facility] care fax script is any changes Anticipated Transportation at Discharge: [place] Patient/Family Expectations: fam 1230 thiurs Transition Planning Transition Planning Transition Plan/Considerations: Needs uncertain at this time - Continue monitoring for needs (08/02/24 1349) Transition plan discussed with - Enter name and phone #: pt (09/29/231348) Referral to Community Agency : N/A (09/29/231348) Additional Considerations: Care Management will continue to monitor and assist with discharge planning needs * Care Plan - Iraida Palma RN - 10/04/2023 4:15 AM EDT Clinical Goal(s): free from falls (10/04/23 0000) Possible barriers to meeting goal(s)/advancing plan of care: weakness Stability of the patient: Moderately stable - low risk of patient condition declining or worsening Summary regarding today's goal(s): Met: pt free from falls Recommendations: continue POC * Ancillary Progress Note - Sumanth Zurita II, RDN - 10/03/2023 2:45 PM EDT Images from the original note were not included. CLINICAL NUTRITION CONSULT/PROGRESS NOTE [facility] [place] [address] Name: Beth Brandt [place] [facility] [place] Date: 10/03/2023 Time: 2:45 PM How patient was identified (select 2): Medical record number, date, and Name Discussed in interdisciplinary rounds: No Beth Brandt is a 78 year old female being seen for parenteral nutrition and follow-up Primary Diagnosis: suspected duodenal perforation. PMH - femur fracture, hyperlipidemia, Other pertinent information: was having to force herself to eat at SNF prior to admission. Has beenNPO x 5 days since admission . NUTRITION ASSESSMENT: Past medical/surgical history and medications reviewed. Food/Nutrition-Related History Nutrition Support: TPN Medication Recent History (Show up to 1 orders; newest on the left.) Start date and time 10/03/2023 1800 Adult PPN Peripheral [[id number]] Order Status Active Dose 1,500 mL Frequency PPN 1800 Macro Ingredients plenamine 4 % D70W 5 % Electrolytes sodium ACEtate 60 mEq potassium chloride 3.6 mEq potassium ACEtate 15 mEq potassium phosphate 18 mmol calcium GLUConate 1,935.48 mg Additives multivitamin ADULT 10 mL trace minerals (TRALEMENT) concentrated 1 mL QS Base sterile water for injection 692.21 mL Lipids Fat emulsion 20% 3 % Energy Contribution Proteins 240 kcal Dextrose 254.99 kcal Lipids 450 kcal Total 944.99 kcal Electrolyte Ion Ordered Amount Sodium 40 mEq/L Potassium 30 mEq/L Calcium 6 mEq/L Magnesium 0 mEq/L Phosphate 12 mmol/L Acetate 50 mEq/L Electrolyte Ion Calculated Amount Sodium 60 mEq Potassium 45 mEq Calcium 9 mEq Magnesium -- Aluminum -- Phosphate 18 mmol Chloride 3.6 mEq Acetate 75 mEq Chloride: Acetate Ratio 0.05 Other Total Amino Acid 60 g Total Amino Acid/kg 0.91 g/kg Glucose Infusion Rate 0.8 mg/kg/min Osmolarity 822.09 Volume 1,500 mL Rate 63 mL/hr Dosing Weight 66 kg Infusion Site Peripheral Total Multi-vitamins 10 mL Total Trace Elements 1 mL Route Intravenous Admin Instructions Infuse using a 1.2 micron in-line filter Provides 945 kcal, 60 g protein Diet: NPO Previously followed diet: soft diet Food Allergies/Intolerances: none Adult Energy Intake: No significant decrease Pertinent medications/vitamins/minerals/supplements: levothyroxine, protonix, potassium phosphate Pertinent Biochemical Data: There are no biochemical abnormalities requiring a change in the nutrition plan of care. Nutrition-Focused Physical Findings: Appearance: Ill-appearing Respiratory support: Supplemental O2 Delivery: Room Air, None Nasal/Oral: No issues identified Digestive: GI Bleed Last Bowel Movement: 10/03/23 (10/03/23 0900) Cognition: Awake, alert and Oriented Skin: Compromise without nutrition-related implications - moisture associated skin damage to groin - surgical site to right hip Enteral access: none Nutrition Focused Physical Exam: NFPE completed on 10/03/2023 Subcutaneous Fat Loss: No significant subcutaneous fat loss noted. Muscle Loss: No significant muscle loss noted. Edema Location: Generalized (10/01/231114) Edema Assessment: +1 - Description (10/01/231114) Anthropometrics Measurements Height: 160 cm (5' 3") (09/29/23 0429) Admission weight: 70.3 kg Weight: 66 kg (145 lb 9.6 oz) (10/03/23 0306) Body mass index is 25.79 kg/m. Usual Body Weight: 63-66 kg per eHR (145 lb per patient) [place] weight: 63.7 kg [place] Weight Based on BMI: 24.9 Interpretation of Weight Change Prior to Admission: No recent/significant weight change Weight Changes Since Admission: weight down 4.3 kg (now closer to usual weight). Nutrition Prescription: Energy needs: 25-30 Kcal/kg Kcal/day: 1393-0357 Based on last known usual weight (66 kg ) Protein needs: 1.2-1.4 gm/kg Protein: 79-92 Based on last known usual weight Fluid needs: 1 ml/1 kcal Fluid: 5552-8578 ml/day Malnutrition: Malnutrition Present: No (10/03/23 1500) NUTRITION DIAGNOSIS: Suboptimal oral intake related to no alterative means of nutrition as evidenced by suspected GI perforation , NPO status, and no intake for past 5 days. Goals: Parenteral nutrition to meet >75% needs until diet can be advanced. NUTRITION INTERVENTION/PLAN: Continue to monitor NPO/clear liquid status Continue to monitor nutrition support Clinical Nutrition Recommendations: Diet: Advance diet when clinically feasible Parenteral Nutrition: PPN Current PPN providing 945 kcal, 60 g protein (meeting only 57% energy need and 75% protein needs) Considering maximizing amino acids in PPN to increase closer to goal of 80g. If parental nutrition continues to be required longer term: Consider increasing provisions to 50 g lipid, 80 g protein, 245 g dextrose (would meet 83-100% estimated energy needs and 85-100% estimated protein needs) NUTRITION MONITORING AND EVALUATION: NPO status/diet advancement and tolerance Parenteral nutrition intake for formula, rate, progress toward goal regimen Lab values warranting change with MNT Weight for trends Plan follow-up: Will follow and adjust nutrition plan of care as medical condition requires. Please contact for change(s) in patient condition requiring earlier intervention. * Ancillary Progress Note - Vaishali Sepulveda MSW - 10/02/2023 11:05 AM EDT CARE MANAGEMENT - ADULT TRANSITION NOTE [facility] [place] [address] Name: Beth Dickson Rikki Location: [address] Date: 10/02/2023 Time: 11:06 AM Risk Stratification Risk Stratification Psycho Social / Medical Concerns Identified: Adjustment to illness/injury;Multiple Comorbidities (09/29/23 1348) Readmission Risk Score: 12.59 (10/02/23 0801) AM-PAC Score With Stairs : 18 (10/02/23 1000) Caregiver Information Patient Contacts Name Relation Home Work Mobile Erika Brandt Adult Child [phone] Transition of Care Checklist Transition of Care Checklist (aka Readmission Risk Score) Discharge Disposition: Post-Acute (09/29/231348) Post Acute: (10) (09/29/231348) Narrative: KAROLINE Beasley [phone]. [place] dc back to [place]. Pt is supervision level of care. Anticipated Transportation at Discharge: [facility] Patient/Family Expectations: [place] Transition Planning Transition Planning Transition Plan/Considerations: Needs uncertain at this time - Continue monitoring for needs (09/29/231348) Transition plan discussed with - Enter name and phone #: pt (09/29/231348) Referral to Community Agency : N/A (09/29/231348) Additional Considerations: Care Management will continue to monitor and assist with discharge planning needs * Communication - Diamond Ferris MD - 10/01/2023 1:02 PM EDT Out of ICU Transfer Note Hospital Day: 2 S: NGT in place. Voices no complaints. On room air. No overt distress. BP 145/62 | Pulse 87 | Temp 37.2 C (99 F) (Tympanic) | Resp 19 | Ht 1.6 m (5' 3") | Wt 70 kg (154 lb 5.2 oz) | SpO2 97% | BMI 27.34 kg/m | BSA 1.76 m Na 136; K 3.7; Cr 0.6; HCO3 21 WBC 6.01; Hgb 8.5; Plt 111 Albumin 2.9; Liver function WNL NG/OG Tube Right nostril Nasogastric 14 Fr (Active) Number of days: 2 Peripheral Line Right Antecubital 20 Gauge (Active) Number of days: 2 Peripheral Line Right Hand 22 Gauge (Active) Number of days: 2 Impression # right posterior wall fx/hip dislocation s/p fixation and a retroperitoneal hematoma #UGIB s/p EGD and control of actively bleeding duodenal ulcer with cautery & clip # Acute blood loss anemia s/p 5 units PRBC and 1 unit cryo precipitate transfusion at OSH # imaging concerning for contained duodenal perforation # NPO since 09/26 (today is day 5) # history of sick sinus syndrome status post ppm I spent a total of 35 minutes coordinating, documenting, and providing care for this patient excluding time spent in the performance of separately billed services or time spent by another provider/QHP. * Progress Notes - Non-Billable - Diane DO Reny - 09/29/2023 5:13 PM EDT Serial Abdominal Exam (ENEIDA) Note Name: Beth Brandt Check #1 @ 1600 PM (09/29/2023) Subjective: Patient examined at bedside. Not in acute distress. Denies n/v/worsening abd pain. Objective: BP 127/68 | Pulse 84 | Temp 36.8 C (98.2 F) (Tympanic) | Resp 18 | Ht 1.6 m (5' 3") | Wt 70.3 kg (154 lb 15.7 oz) | SpO2 97% | BMI 27.45 kg/m | BSA 1.77 m Constitutional: no acute distress Abdomen: soft, non distended, no guarding or rebound. CV: warm and well perfused Chest: symmetric and normal respiratory effort Plan: will continue to monitor Reny DO Diane 09/29/2023 Check #2 @ 0100 AM (09/30/2023) Subjective: Patient examined at bedside. Not in acute distress. Reports discomfort in suprapubic region. Deniesnausea/vomiting. Denies worsening abdominal pain. States she has been burping occasionally. Reportsfeeling less bloated than prior to NGT placement. Objective: BP 148/79 | Pulse 96 | Temp 36.8 C (98.2 F) (Tympanic) | Resp 21 | Ht 1.6 m (5' 3") | Wt 70.3 kg (154 lb 15.7 oz) | SpO2 97% | BMI 27.45 kg/m | BSA 1.77 m Constitutional: no acute distress Abdomen: soft, non distended, no guarding or rebound. CV: warm and well perfused Chest: symmetric and normal respiratory effort Reny Contreras DO 09/30/2023 * Communication - Bartolome Sal DO - 09/29/2023 3:53 PM EDT Brief communication note: Spoke to patient's daughter, Erika, via phone. Updated her on patient's current status, hospital course, current management and future plans. Answered all of her questions and concerns to the best of my knowledge. * Ancillary Progress Note - Raven Schmitz RN - 09/29/2023 1:50 PM EDT CARE MANAGEMENT - ADULT INITIAL SCREENING [address] [address] Name: Beth Brandt [place] [facility] [place] Date: 09/29/2023 Time: 1:50 PM Discussed patient with the interdisciplinary care team. This Balance Wheel Facer performed a chart review and met with pt at bedside to complete admission screen and assessed needs for transition planning. The careers adviser role and services were explained and emotional support was provided. Chief Complaint: No chief complaint on file. Prior Living Arrangements What was your living situation prior to admission/observation?: At an Assisted Living Center ([facility]) (09/29/23 134) Living Quarters: Assisted Living (09/29/231347) Do you have serious difficulty walking or climbing stairs? (5 years old or older): No (09/29/23428) History of falling: Yes (09/29/23799) Prior Level of Functioning Describe the patient's ability prior to admission/observation to perform ADLs: Requires assistance (08/02/24 0429) Requires assistance with: Bathing;Grooming (09/29/231347) Describe the patient's mobility status prior to admission: Patient requires assistance with ambulation (09/29/231347) Patient uses assistive device: Yes (09/29/23428) If yes, choose:: Walker;Wheelchair (09/29/23428) Caregiver Information Patient Contacts Name Relation Home Work Mobile Erika Brandt Adult Child [phone] Risk Stratification/Psychosocial/Care Gaps Risk Stratification Psycho Social / Medical Concerns Identified: Adjustment to illness/injury;Multiple Comorbidities (09/29/231347) Readmission Risk Score: 10.4 (09/29/23 1200) AM-PAC Score With Stairs : 11 (09/29/23 0500) Prior to Admission Services Services Prior to Admission PART TIME FLEXIBLE CLERK Services (Services received within the last 30 days with exception, Psych within last two years): Durable Medical Equipment (09/29/231347) PART TIME FLEXIBLE CLERK Durable Medical Equipment (DME) in home: Walker Rolling;Wheelchair standard (09/29/231347) [place] Dept. of Aging (PDA) Waiver Program: N/A (09/29/231347) PART TIME FLEXIBLE CLERK Transportation (Services received within the last 30 days): Family/Friends Personal Vehicle (09/29/231347) Outpatient Balance Wheel Facer: Patient Care Team: Afshan Payton, LEONIE as Tripe Finisher (Registered Nurse) Patient/Family Expectations: Spoke w pt bedside. Per pt she was originally at home prior to last admit here to where she went to [facility] upon dc on 09/09. From [facility] she went to [facility] [phone]. Where she has been prior to this admit. She still has an incision, has dme RW, high toilet. States needs assist w inc care/dressing it, as well as grooming/shower but is able to dress her self. Pt plans to return back to the [facility]. Pt is agreeable however to [facility] if it is recommended at closer time of dc. CM will continue to follow. Pt was worried on holding bed at [facility]. When CM called [facility], spoke felipa Chavira. They do understand she is in hospital and CM giving pt advise of having dtr call financial office there is appropriate. For further screening information, please refer to the Care Management flow document. * Ancillary Progress Note - Share, Dulcenellie Durham RDN - 09/29/2023 12:23 PM EDT CLINICAL NUTRITION ADULT RISK ASSESSMENT [address] [address] Name: Beth Brandt [place] [facility] [place] [facility] Date: 09/29/2023 Time: 12:23 PM How patient was identified (select 2): Medical record number and date Reason for RDN intervention: reduced dietary intake and unable to answer Primary diagnosis: 78 year old female admitted with a gastrointestinal hemorrhage associated with duodenal ulcer. Other pertinent information: The patient was recently admitted to [facility] [place]/[facility]. She was discharged from here to [facility]. [facility] Reports having a fair appetite there, but felt as though she had to force herself to eat.Was not receiving any oral nutrition supplements like Boost or Ensure, but would be open to trying o ne upon diet advancement. Denies baseline difficulty chewing or swallowing. Anthropometrics Measurements Admission weight (for dietitians): 70.3 kg Height: 160 cm (5' 3") (09/29/23428) Weight: 70.3 kg (154 lb 15.7 oz) (09/29/23428) BMI: 27.46 (09/29/23428) Usual Body Weight or EDW for Dialysis Patients: 63-66 kg per EHR Diet: NPO Previously followed diet: Soft diet per patient report Food Allergies/Intolerances: None known Oral Nutrition Supplement (ONS): None Pertinent medications/vitamins/minerals/supplements: Isolyte-S at 50 ml/hr, Protonix gtt RISK FACTORS: Adult Energy Intake: No significant decrease Interpretation of Weight Change: No recent/significant weight change Skin: Compromise without nutrition-related implications - moisture associated skin damage to groin - surgical site to right hip NUTRITION RISK CATEGORY: Nutrition Risk Category: Low/Moderate (0-1 factors) Clinical Nutrition Recommendations: Diet: Advance diet when clinically feasible NUTRITION INTERVENTION/PLAN: Continue to monitor NPO/clear liquid status Will follow and adjust nutritional plan as medical condition requires. Please contact for change(s)in patient condition requiring earlier intervention. Dulce Sosa, MS, RDN, LDN, [facility] Clinical Dietitian Jessi | Extension [phone] * Respiratory Progress Note - Venkat Cardoso, FACE PAINTER - 09/29/2023 6:26 AM EDT PATIENT DRIVEN PROTOCOL - Respiratory Care Services [address] [address] Name: Beth Brandt [place]: [facility] [place] [facility] Date: 09/29/2023 Time: 6:26 AM Patient Driven Protocol Summary: Initial evaluation performed. This Treatment Plan and medications will be reviewed by the Primary Care Team for any contraindications. Respiratory Care Treatment Plan Pulmonary Volume Expansion Therapy: Incentive Spirometry PRN to prevent or treat alveolar consolidation and atelectasis. . Secretion Management Treatment: Flutter TherapyPRN to enhance mobilization of secretions and prevent or treat alveolar consolidation and atelectasis. [...] Clinical Findings Pulmonary Status: 0 - No History Surgical Status: 0 - No Surgical History Chest X-Ray: 0 - Not Performed or performed greater than 3 days ago Assessment Score: 0 Patient Assessment Clinical Findings Respiratory Pattern: 0 - RR 12 - 20; Patient only gets breathless with strenuous exercise. Breath Sounds: 0 - Clear to auscultation Cough Effectiveness: 0 - Strong non-productive Sputum Production: 0 - No sputum production Level of Activity: 2 - Temporarily non-ambulatory O2 needed to keep SpO2 greater than or equal to 92%: 0 - Room Air Assessment Score: 2 Total Assessment Score: 2 Breath Sounds: clear bilaterally.. Cough and Sputum: An effective cough produced no sputum... CXR: NONE. Vital Signs: Resp: 18 (09/29/23 0621) Pulse: 83 (09/29/23 0500) Temp: 36.9 C (98.4 F) (09/29/23 0415) BP: 117/63 (09/29/23 0500) SpO2: 96 % (09/29/23 0621) PFT: Minimal Predicted IC: 0.783 L. Inspiratory capacity: 1.5 L. Primary Service: Critical Care Green. Admitting Diagnosis: GI bleed [K92.2] Bleeding ulcer [K28.4] Pulmonary Diagnosis: NONE . Prescriptions/Home Medications/Durable Medical Equipment: FLONASE. documented in this encounter Plan of Treatment Upcoming Encounters Date Type Department Care Team (Late st Contact Info) Description 10/16/2023 9:45 AM EDT Office Visit Orthopaedics, [place] [address] [place] [address] Trenton Nunez, Ranjeet Drake MD [address] [place] [address] 10/18/2023 3:15 PM EDT [facility] [address] [place] [address] Clinic, Emergency General Surgery [address] [place] [address] 12/22/2023 2:00 PM EDT Office Visit General Internal Medicine [facility] [place] [address] [place] [address] Shannan Arias MD [address] [place] [address] 02/01/2024 10:00 AM EST Cardiac Studies Cardiology, [facility] [address] [facility] [address] [facility] [address] [place] [address] Scheduled Orders Name Type Priority Associated Diagnoses Order Schedule IR ARTERIAL EMBOLIZATION Medical Imaging Routine One Time for 1 Occurrences starting 09/29/2023 until 09/29/2023 CBC Lab Routine Acute blood loss anemia Expected: 10/09/2023 (Approximate), Expires: 10/04/2024 BASIC METABOLIC PANEL Lab Routine On peripheral parenteral nutrition (ppn) Expected: 10/09/2023 (Approximate), Expires: 10/04/2024 MAGNESIUM Lab Routine On peripheral parenteral nutrition (ppn) Expected: 10/09/2023 (Approximate), Expires: 10/04/2024 PHOSPHORUS Lab Routine On peripheral parenteral nutrition (ppn) Expected: 10/09/2023 (Approximate), Expires: 10/04/2024 Scheduled Procedures Name Priority Associated Diagnoses Date/Ti me COLONOSCOPY FLEXIBLE PROXIMA L DIAGNOSTIC Recall History of colonic polyps Health Maintenance Due Date Last Done Comments Adult Wellness Visit 04/06/2022 04/06/2021 COVID-19 Vaccine ( season) 2023 12/29/2022, 12/24/2021, [...] this encounter Medical Devices Implanted Type Area Computer Project Manager Device Identifier Shelf Expiration Date Model / Serial / Lot Plate Lcp Pilon 3.5 7h 240.082 - [id number] Implanted:Qty: 1 on 09/05/2023 by Ranjeet Chowdhury Jr., MD at [place] [facility] [place] Right: Pelvis SYNTHES 240.082 / / Hip Head V40 Taper C C 222 0 - [id number] Implanted:Qty: 1 on 09/05/2023 by Ranjeet Chowdhury Jr., [place] [facility] [place] Hip TONI : ORTHOPAEDICS 07/09/2028 6260-4-122 / / [id number] Screw Selftap 3.5x36 204.836 - [id number] Implanted:Qty: 2 on 09/05/2023 by Ranjeet Chowdhury Jr., MD [place] [facility] [place]: Pelvis SYNTHES 204.836 / / Screw Selftap 3.5x20 204.820 - [id number] Implanted:Qty: 2 on 09/05/2023 by Ranjeet Chowdhury Jr., MD [place] [facility] [place]: Pelvis SYNTHES 204.820 / / Implant Hip Acetab Shell 50d - [id number] Implanted:Qty: 1 on 09/05/2023 by Ranjeet Chowdhury Jr., MD [place] [facility] [place]: Hip TONI : ORTHOPAEDICS 11/28/2026 709-04-50D / / [id number] Screw Low Profile 6.1jcb69re - [id number] Implanted:Qty: 1 on 09/05/2023 by Ranjeet Chowdhury Jr., MD [place] [facility] [place]: Hip TONI : ORTHOPAEDICS 04/05/2028 1033-4529 / / GDBJ Screw Low Profile 6.1esw63lo - [id number] Implanted:Qty: 1 on 09/05/2023 by Ranjeet Chowdhury Jr., MD [place] [facility] [place]: Hip TONI : ORTHOPAEDICS 04/03/2028 5534-1758 / / GBCA Hip Liner Mdm Cocr 38 D - [id number] Implanted:Qty: 1 on 09/05/2023 by Ranjeet Chowdhury Jr., MD [place] [facility] [place]: Hip TONI : ORTHOPAEDICS 07/24/2028 626-00-38D / / [id number] Implant Stem Hip Colr Std 2 - [id number] Implanted:Qty: 1 on 09/05/2023 by Ranjeet Chowdhury Jr., MD at [place] [facility] [place]: Hip TONI : ORTHOPAEDICS 03/13/2027 [id number] / / [id number] Mdm X3 Inser Liner 22x44 - [id number] Implanted:Qty: 1 on 09/05/2023 by Ranjeet Chowdhury Jr., MD [place] [facility] [place]: Hip TONI : ORTHOPAEDICS 09/15/2027 7236-2-244 / / [id number] documented as of this encounter Procedures Procedure Name Priority Date/Time Associated Diagnosis Comments BASIC METABOLIC PANEL Routine 10/05/2023 7:52 AM EDT CBC Routine 10/05/2023 7:52 AM EDT HEPATIC FUNCTION PANEL Routine 10/05/2023 6:40 AM EDT PHOSPHORUS Routine 10/05/2023 6:40 AM EDT MAGNESIUM Routine 10/05/2023 6:40 AM EDT BASIC METABOLIC PANEL Routine 10/04/2023 7:48 PM EDT PHOSPHORUS Routine 10/04/2023 7:48 PM EDT CBC Routine 10/04/2023 7:48 PM EDT MAGNESIUM Routine 10/04/2023 7:48 PM EDT RETICULOCYTE PANEL Add-on 10/04/2023 8: 09 AM EDT HEPATIC FUNCTION PANEL Routine 10/04/2023 8:09 AM EDT BASIC METABOLIC PANEL Routine 10/04/2023 8:09 AM EDT FOLIC ACID Add-on 10/04/2023 8:09 AM EDT IRON SCREEN, INCLUDING TIBC Add-on 10/04/2023 8:09 AM EDT PHOSPHORUS Routine 10/04/2023 8:09 AM EDT CBC Routine 10/04/2023 8:09 AM EDT MAGNESIUM Routine 10/04/2023 8:09 AM EDT FERRITIN Add-on 10/04/2023 8:09 AM EDT VITAMIN B12 Add-on 10/04/2023 8:09 AM EDT BASIC METABOLIC PANEL Routine 10/03/2023 7:32 PM EDT PHOSPHORUS Routine 10/03/2023 7:32 PM EDT CBC Routine 10/03/2023 7:32 PM EDT MAGNESIUM Routine 10/03/2023 7:32 PM EDT FLUORO UGI SINGLE CONTRAST Routine 10/03/2023 10:20 AM EDT Obstruction of duodenum CALCIUM, IONIZED Routine 10/03/2023 9:12 AM EDT TRIGLYCERIDES Add-on 10/03/2023 9:12 AM EDT HEPATIC FUNCTION PANEL Routine 10/03/2023 7:11 AM EDT BASIC METABOLIC PANEL Routine 10/03/2023 7:11 AM EDT PHOSPHORUS Routine 10/03/2023 7:11 AM EDT CBC Routine 10/03/2023 7:11 AM EDT MAGNESIUM Routine 10/03/2023 7:11 AM EDT CBC Routine 10/02/2023 7:48 PM EDT BASIC METABOLIC PANEL Routine 10/02/2023 7:44 PM EDT PHOSPHORUS Add-on 10/02/2023 7:44 PM EDT MAGNESIUM Add-on 10/02/2023 7:44 PM EDT EXTRA LAVENDER TOP Routine 10/02/2023 6: 47 AM EDT EXTRA TUBES Routine 10/02/2023 6:47 AM EDT HEPATIC FUNCTION PANEL Routine 10/02/2023 6:47 AM EDT BASIC METABOLIC PANEL Routine 10/02/2023 6:47 AM EDT PHOSPHORUS Add-on 10/02/2023 6:47 AM EDT CBC Routine 10/02/2023 6:47 AM EDT MAGNESIUM Add-on 10/02/2023 6:47 AM EDT CBC Routine 10/01/2023 9:01 PM EDT CBC Routine 10/01/2023 7:25 AM EDT HEPATIC FUNCTION PANEL Routine 10/01/2023 4:48 AM EDT BASIC METABOLIC PANEL Routine 10/01/2023 4:48 AM EDT PHOSPHORUS STAT 10/01/2023 4:48 AM EDT CALCIUM, IONIZED STAT 10/01/2023 4:48 AM EDT CBC Routine 10/01/2023 4:48 AM EDT MAGNESIUM STAT 10/01/2023 4:48 AM EDT CBC Routine 10/01/2023 12:39 AM EDT CBC Routine 09/30/2023 7:18 PM EDT CBC Routine 09/30/2023 11:22 AM EDT HEPATIC FUNCTION PANEL Routine 09/30/2023 5:30 AM EDT BASIC METABOLIC PANEL Routine 09/30/2023 5:30 AM EDT PHOSPHORUS STAT 09/30/2023 5:30 AM EDT LACTATE STAT 09/30/2023 5:30 AM EDT CALCIUM, IONIZED STAT 09/30/2023 5:30 AM EDT CBC Routine 09/30/2023 5:30 AM EDT MAGNESIUM STAT 09/30/2023 5:30 AM EDT LACTATE STAT 09/29/2023 11:31 PM EDT CBC Routine 09/29/2023 11:18 PM EDT LACTATE STAT 09/29/2023 5:18 PM EDT CBC Routine 09/29/2023 5:18 PM EDT LACTATE STAT 09/29/2023 11:38 AM EDT CBC Routine 09/29/2023 11:38 AM EDT XR ABDOMEN 1 VIEW STAT 09/29/2023 10: 26 AM EDT Encounter for fitting and adjustment of other gastrointestinal appliance and device CTA ABD/PELVIS STAT 09/29/2023 6:40 AM EDT Encounter for attention to other artificial openings of digestive tract (HCC) Pleural effusion, not elsewhere classified Abnormal findings on diagnostic imaging of other abdominal regions, including retroperitoneum MRSA SCREEN, PCR Routine 09/29/2023 5:32 AM EDT TEG (THOMROBOELASTOGRAPH) PANEL Routine 09/29/2023 5:01 AM EDT TEG (THROMBOELASTOGRAPH), HEPARINASE Routine 09/29/2023 5:01 AM EDT TEG (THROMBOELASTOGRAPH) Routine 09/29/2023 5:01 AM EDT HEPATIC FUNCTION PANEL Routine 09/29/2023 5:01 AM EDT BASIC METABOLIC PANEL Routine 09/29/2023 5:01 AM EDT PT INR Routine 09/29/2023 5:01 AM EDT PHOSPHORUS STAT 09/29/2023 5:01 AM EDT CALCIUM, IONIZED STAT 09/29/2023 5:01 AM EDT APTT Routine 09/29/2023 5:01 AM EDT FIBRINOGEN STAT 09/29/2023 5:01 AM EDT CBC Routine 09/29/2023 5:01 AM EDT MAGNESIUM STAT 09/29/2023 5:01 AM EDT RED BLOOD CELL ANTIBODY IDENTIFICATION INTERPRETATION Routine 09/29/2023 5:00 AM EDT RED BLOOD CELL ANTIBODY IDENTIFICATION STAT 09/29/2023 5:00 AM EDT TYPE AND SCREEN Routine 09/29/2023 5:00 AM EDT LACTATE STAT 09/29/2023 5:00 AM EDT documented in this encounter Results * BASIC METABOLIC PANEL (10/05/2023 7:52 AM EDT) BUN 11 6 - 20 mg/dL 10/05/2023 8:53 AM EDT LAB[facility]ORY [facility] Creatinine 0.6 0.5 - 1.0 mg/dL 10/05/2023 8:53 AM EDT LAB[facility] Estimated Glomerular Filtration Rate >90 >=60 mL/min 10/05/2023 8:53 AM EDT LAB[facility] Comment:eGFR is calculated b ased on the CKD-EPI 2020 equation. Sodium 139 135 - 146 mmol/L 10/05/2023 8:53 AM EDT LAB[facility] Potassium 4.3 3.5 - 5.1 mmol/L 10/05/2023 8:53 AM EDT [facility] Chloride 106 98 - 107 mmol/L 10/05/2023 8:53 AM EDT [facility] CO2 22 22 - 32 mmol/L 10/05/2023 8:53 AM EDT [facility] Anion Gap 11 7 - 15 mmol/L 10/05/2023 8:53 AM EDT LAB[facility] Glucose 108 70 - 120 mg/dL 10/05/2023 8:53 AM EDT [facility] Calcium 8.4 8.4 - 10.2 mg/dL 10/05/2023 8:53 AM EDT [facility] Blood Venous blood specimen / Unknown Venipuncture / Unknown 10/05/2023 7:52 AM EDT 10/05/2023 8:19 AM EDT Mariely Zurita MD LAB BLOOD ORDERABLES [facility] [address] [place] [address] * (ABNORMAL) CBC (10/05/2023 7:52 AM EDT) WBC 4.51 4.00 - 10.80 K/uL 10/05/2023 8:35 AM EDT [facility] RBC 2.64 3.85 - 5.15 M/uL 10/05/2023 8:35 AM EDT [facility] HGB 8.3(L) 12.0 - 15.3 g/dL 10/05/2023 8:35 AM EDT [facility] HCT 26.1(L) 36.0 - 45.2 % 10/05/2023 8:35 AM EDT [facility] MCV 98.9 81.5 - 97.5 fL 10/05/2023 8:35 AM EDT LAB[facility] MCH 31.4 27.0 - 34.0 pg 10/05/2023 8:35 AM EDT LAB[facility] MCHC 31.8 32.0 - 36.0 g/dL 10/05/2023 8:35 AM EDT [facility] RDW 22.1 11.5 - 15.5 % 10/05/2023 8:35 AM EDT LAB[facility] PLT 126(L) 140 - 400 K/uL 10/05/2023 8:35 AM EDT [facility] MPV 11.0 6.6 - 11.1 fL 10/05/2023 8:35 AM EDT LAB[facility] nRBCs 0 <=0 /100 WBCs 10/05/2023 8:35 AM EDT LAB[facility] Blood Venous blood specimen / Unknown Venipuncture / Unknown 10/05/2023 7:52 AM EDT 10/05/2023 8:19 AM EDT Kyoung Wook Cho DO LAB BLOOD ORDERABLES Performing Organization Address [facility] Co de Phone Number [facility] [address] [place] [address] * PHOSPHORUS (10/05/2023 6:40 AM EDT) Pathologist [facility] Phosphorus 3.6 2.5 - 4.8 mg/dL 10/05/2023 7:14 AM EDT LAB[facility] Blood Venous blood specimen / Unknown Venipuncture / Unknown 10/05/2023 6:40 AM EDT 10/05/2023 6:46 AM EDT Al Noel Vajose manueldanni DO LAB BLOOD OR DERABLES Performing Organization Address [facility] de Phone Number LABORATORY C [address] [place] [address] * MAGNESIUM (10/05/2023 6:40 AM EDT) Pathologist [facility] Magnesium 2.2 1.5 - 2.6 mg/dL 10/05/2023 7:14 AM EDT LAB[facility] Blood Venous blood specimen / Unknown Venipuncture / Unknown 10/05/2023 6:40 AM EDT 10/05/2023 6:46 AM EDT Alstacy Cohen Germaniajose manueldanni DO LAB BLOOD OR DERABLES Performing Organization Address [facility] de Phone Number LABORATORY C [address] [place] [address] * (ABNORMAL) HEPATIC FUNCTION PANEL (10/05/2023 6:40 AM EDT) Albumin 3.1(L) 3.8 - 5.0 g/dL 10/05/2023 7:14 AM EDT [facility] AST 18 10 - 35 U/L 10/05/2023 7:14 AM EDT LAB[facility] Alkaline Phosphatase 85 35 - 130 U/L 10/05/2023 7:14 AM EDT [facility] ALT 10 10 - 35 U/L 10/05/2023 7:14 AM EDT LAB[facility] Bilirubin, Total 0.4 <=1.2 mg/dL 10/05/2023 7:14 AM EDT LAB[facility] Bilirubin, Direct <0.2 0.0 - 0.3 mg/dL 10/05/2023 7:14 AM EDT LAB[facility] Protein 5.0(L) 6.0 - 8.3 g/dL 10/05/2023 7:14 AM EDT LAB[facility] Blood Venous blood specimen / Unknown Venipuncture / Unknown 10/05/2023 6:40 AM EDT 10/05/2023 6:46 AM EDT Luis Manuel Bennett PA-C LAB BLOOD ORDERA BLES LAB[facility]AT[facility] [address] [place] [address] * (ABNORMAL) BASIC METABOLIC PANEL (10/04/2023 7:48 PM EDT) BUN 13 6 - 20 mg/dL 10/04/2023 8:50 PM EDT [facility] Creatinine 0.7 0.5 - 1.0 mg/dL 10/04/2023 8:50 PM EDT LAB[facility] Estimated Glomerular Filtration Rate 86 >=60 mL/min 10/04/2023 8:50 PM EDT LABORATORY C Comment:eGFR is calculated b ased on the CKD-EPI 2020 equation. Sodium 136 135 - 146 mmol/L 10/04/2023 8:50 PM EDT [facility] Potassium 3.7 3.5 - 5.1 mmol/L 10/04/2023 8:50 PM EDT LAB[facility] Chloride 103 98 - 107 mmol/L 10/04/2023 8:50 PM EDT [facility] CO2 22 22 - 32 mmol/L 10/04/2023 8:50 PM EDT [facility] Anion Gap 11 7 - 15 mmol/L 10/04/2023 8:50 PM EDT LAB[facility] Glucose 130(H) 70 - 120 mg/dL 10/04/2023 8:50 PM EDT [facility] Calcium 8.5 8.4 - 10.2 mg/dL 10/04/2023 8:50 PM EDT [facility] Blood Venous blood specimen / Unknown Venipuncture / Unknown 10/04/2023 7:48 PM EDT 10/04/2023 8:20 PM EDT Mariely Zurita MD LAB BLOOD ORDERABLES LABORATORY [facility] [address] [place] [address] * (ABNORMAL) CBC (10/04/2023 7:48 PM EDT) WBC 6.15 4.00 - 10.80 K/uL 10/04/2023 8:32 PM EDT [facility] RBC 2.92 3.85 - 5.15 M/uL 10/04/2023 8:32 PM EDT LAB[facility] HGB 9.0(L) 12.0 - 15.3 g/dL 10/04/2023 8:32 PM EDT [facility] HCT 27.9(L) 36.0 - 45.2 % 10/04/2023 8:32 PM EDT [facility] MCV 95.5 81.5 - 97.5 fL 10/04/2023 8:32 PM EDT LAB[facility] MCH 30.8 27.0 - 34.0 pg 10/04/2023 8:32 PM EDT LAB[facility] MCHC 32.3 32.0 - 36.0 g/dL 10/04/2023 8:32 PM EDT LAB[facility] RDW 22.0 11.5 - 15.5 % 10/04/2023 8:32 PM EDT LAB[facility] PLT 140 140 - 400 K/uL 10/04/2023 8:32 PM EDT LAB[facility] MPV 10.8 6.6 - 11.1 fL 10/04/2023 8:32 PM EDT LAB[facility] nRBCs 0 <=0 /100 WBCs 10/04/2023 8:32 PM EDT LABORATORY GM Blood Venous blood specimen / Unknown Venipuncture / Unknown 10/04/2023 7:48 PM EDT 10/04/2023 8:20 PM EDT Kyoung Wook Cho DO LAB BLOOD ORDERABLES Performing Organization Address [facility] Co de Phone Number LABORATORY C [address] [place] [address] * PHOSPHORUS (10/04/2023 7:48 PM EDT) Phosphorus 3.0 2.5 - 4.8 mg/dL 10/04/2023 8:50 PM EDT LAB[facility] Blood Venous blood specimen / Unknown Venipuncture / Unknown 10/04/2023 7:48 PM EDT 10/04/2023 8:20 PM EDT Al Noel Conrad DO LAB BLOOD OR DERABLES Performing Organization Address [facility] Co de Phone Number LAB[facility]ATORY [facility] [address] [place] [address] * MAGNESIUM (10/04/2023 7:48 PM EDT) Magnesium 2.2 1.5 - 2.6 mg/dL 10/04/2023 8:50 PM EDT [facility] Blood Venous blood specimen / Unknown Venipuncture / Unknown 10/04/2023 7:48 PM EDT 10/04/2023 8:20 PM EDT Al Noeljessica Conrad DO LAB BLOOD OR DERABLES Performing Organization Address [facility] Co de Phone Number LABORATORY [facility] [place] [address] [place] [address] * (ABNORMAL) IRON SCREEN, INCLUDING TIBC (10/04/2023 8:09 AM EDT) Iron 40 33 - 151 ug/dL 10/04/2023 11:53 AM EDT [facility] Iron Binding Capacity 224(L) 250 - 425 ug/dL 10/04/2023 11:53 AM EDT LAB[facility] Transferrin Saturation Percent 18 15 - 55 % 10/04/2023 11:53 AM EDT [facility] Blood Venous blood specimen / Unknown Venipuncture / Unknown 10/04/2023 8:09 AM EDT 10/04/2023 8:15 AM EDT Al Conrad DO LAB BLOOD OR DERABLES Performing Organization Address [facility] Co de Phone Number LAB[facility]ATORY [facility] [address] [place] [address] * VITAMIN B12 (10/04/2023 8:09 AM EDT) Vitamin B12 618 232 - 1,245 pg/mL 10/04/2023 12:29 PM EDT LABORATORY C Blood Venous blood specimen / Unknown Venipuncture / Unknown 10/04/2023 8:09 AM EDT 10/04/2023 8:15 AM EDT Al Conrad DO LAB BLOOD OR DERABLES Performing Organization Address [facility] de Phone Number LAB[facility]ATORY [facility] [address] [place] [address] * FOLIC ACID (10/04/2023 8:09 AM EDT) Folic Acid 19.2 >4.5 ng/mL 10/04/2023 12:29 PM EDT LAB[facility]ORY [facility] Blood Venous blood specimen / Unknown Venipuncture / Unknown 10/04/2023 8:09 AM EDT 10/04/2023 8:15 AM EDT Al Conrad DO LAB BLOOD OR DERABLES Performing Organization Address [facility] de Phone Number LAB[facility]ATORY [facility] [address] [place] [address] * (ABNORMAL) RETICULOCYTE PANEL (10/04/2023 8:09 AM EDT) Reticulocyte Percent 6.29(H) 0.80 - 1.90 % 10/04/2023 11:57 AM EDT LAB[facility] Absolute Reticulocyte 179.3(H) 31.3 - 100.1 K/uL 10/04/2023 11:57 AM EDT LAB[facility] Immature Reticuloctye Fraction 23.2(H) 2.5 - 20.6 % 10/04/2023 11:57 AM EDT LAB[facility] Reticulocyte Hemoglobin 34.5 29.7 - 37.4 pg 10/04/2023 11:57 AM EDT LABORATORY [facility] Blood Venous blood specimen / Unknown Venipuncture / Unknown 10/04/2023 8:09 AM EDT 10/04/2023 8:15 AM EDT Al Cohen [facility] LAB BLOOD OR DERABLES Performing Organization Address [facility] de Phone Number LABORATORY [facility] [address] [place] [address] * (ABNORMAL) FERRITIN (10/04/2023 8:09 AM EDT) Ferritin 732(H) 13 - 150 ng/mL 10/04/2023 12:29 PM EDT LAB[facility]ORY [facility] Comment:Postmenopausal women have higher ferritin levels than pre-menopausal women. The above reference interval is based on pre-menopausal women. Blood Venous blood specimen / Unknown Venipuncture / Unknown 10/04/2023 8:09 AM EDT 10/04/2023 8:15 AM EDT Al Cohen [facility] LAB BLOOD OR DERABLES Performing Organization Address [facility] de Phone Number LAB[facility]ATORY [facility] [address] [place] [address] * (ABNORMAL) BASIC METABOLIC PANEL (10/04/2023 8:09 AM EDT) BUN 8 6 - 20 mg/dL 10/04/2023 8:41 AM EDT LABORATORY C Creatinine 0.5 0.5 - 1.0 mg/dL 10/04/2023 8:41 AM EDT LABORATORY [facility] Estimated Glomerular Filtration Rate >90 >=60 mL/min 10/04/2023 8:41 AM EDT LAB[facility]ATORY [facility] Comment:eGFR is calculated b ased on the CKD-EPI 2020 equation. Sodium 138 135 - 146 mmol/L 10/04/2023 8:41 AM EDT LAB[facility] Potassium 3.6 3.5 - 5.1 mmol/L 10/04/2023 8:41 AM EDT [facility] Chloride 104 98 - 107 mmol/L 10/04/2023 8:41 AM EDT LAB[facility] CO2 22 22 - 32 mmol/L 10/04/2023 8:41 AM EDT [facility] Anion Gap 12 7 - 15 mmol/L 10/04/2023 8:41 AM EDT LAB[facility] Glucose 136(H) 70 - 120 mg/dL 10/04/2023 8:41 AM EDT [facility] Calcium 8.4 8.4 - 10.2 mg/dL 10/04/2023 8:41 AM EDT LAB[facility] Blood Venous blood specimen / Unknown Venipuncture / Unknown 10/04/2023 8:09 AM EDT 10/04/2023 8:15 AM EDT Mariely Zurita MD LAB BLOOD ORDERABLES Performing Organization Address City/State/[facility] Co de Phone Number LABORATORY [facility] [address] [place] [address] * (ABNORMAL) CBC (10/04/2023 8:09 AM EDT) WBC 4.75 4.00 - 10.80 K/uL 10/04/2023 8:30 AM EDT [facility] RBC 2.89 3.85 - 5.15 M/uL 10/04/2023 8:30 AM EDT LAB[facility] HGB 8.8(L) 12.0 - 15.3 g/dL 10/04/2023 8:30 AM EDT LAB[facility] HCT 27.6(L) 36.0 - 45.2 % 10/04/2023 8:30 AM EDT LAB[facility] MCV 95.5 81.5 - 97.5 fL 10/04/2023 8:30 AM EDT LAB[facility] MCH 30.4 27.0 - 34.0 pg 10/04/2023 8:30 AM EDT LAB[facility] MCHC 31.9 32.0 - 36.0 g/dL 10/04/2023 8:30 AM EDT LAB[facility]ORY [facility] RDW 21.6 11.5 - 15.5 % 10/04/2023 8:30 AM EDT LAB[facility]ORY [facility] PLT 128(L) 140 - 400 K/uL 10/04/2023 8:30 AM EDT LABORATORY [facility] MPV 10.7 6.6 - 11.1 fL 10/04/2023 8:30 AM EDT LAB[facility] nRBCs 0 <=0 /100 WBCs 10/04/2023 8:30 AM EDT LAB[facility]ORY [facility] Blood Venous blood specimen / Unknown Venipuncture / Unknown 10/04/2023 8:09 AM EDT 10/04/2023 8:15 AM EDT Dominga Silva DO LAB BLOOD ORDERABLES Performing Organization Address City/[facility]/ZIP Co de Phone Number LABORATORY [facility] [address] [place] [address] * PHOSPHORUS (10/04/2023 8:09 AM EDT) Phosphorus 3.4 2.5 - 4.8 mg/dL 10/04/2023 8:41 AM EDT LAB[facility]ORY [facility] Blood Venous blood specimen / Unknown Venipuncture / Unknown 10/04/2023 8:09 AM EDT 10/04/2023 8:15 AM EDT Al Conrad DO LAB BLOOD OR DERABLES Performing Organization Address City/[facility]/ZIP Co de Phone Number LABORATORY [facility] [address] [place] [address] * MAGNESIUM (10/04/2023 8:09 AM EDT) Magnesium 2.0 1.5 - 2.6 mg/dL 10/04/2023 8:41 AM EDT LAB[facility]ORY [facility] Blood Venous blood specimen / Unknown Venipuncture / Unknown 10/04/2023 8:09 AM EDT 10/04/2023 8:15 AM EDT Al Conrad DO LAB BLOOD OR DERABLES Performing Organization Address City/[facility]/ZIP Co de Phone Number LAB[facility]ORY [facility] [address] [place] [address] * (ABNORMAL) HEPATIC FUNCTION PANEL (10/04/2023 8:09 AM EDT) Albumin 3.4(L) 3.8 - 5.0 g/dL 10/04/2023 8:41 AM EDT LAB[facility]ORY [facility] AST 18 10 - 35 U/L 10/04/2023 8:41 AM EDT LAB[facility] Alkaline Phosphatase 97 35 - 130 U/L 10/04/2023 8:41 AM EDT LAB[facility] ALT 13 10 - 35 U/L 10/04/2023 8:41 AM EDT LAB[facility] Bilirubin, Total 0.3 <=1.2 mg/dL 10/04/2023 8:41 AM EDT LAB[facility]ORY [facility] Bilirubin, Direct <0.2 0.0 - 0.3 mg/dL 10/04/2023 8:41 AM EDT LAB[facility] Protein 5.4(L) 6.0 - 8.3 g/dL 10/04/2023 8:41 AM EDT LAB[facility] Blood Venous blood specimen / Unknown Venipuncture / Unknown 10/04/2023 8:09 AM EDT 10/04/2023 8:15 AM EDT Luis Manuel Bennett PA-C LAB BLOOD ORDERA BLES Performing Organization Address [facility]/ZIP Co de Phone Number LAB[facility]ATORY [facility] [address] [place] [address] * (ABNORMAL) BASIC METABOLIC PANEL (10/03/2023 7:32 PM EDT) BUN 9 6 - 20 mg/dL 10/03/2023 8:09 PM EDT LAB[facility] Creatinine 0.5 0.5 - 1.0 mg/dL 10/03/2023 8:09 PM EDT LAB[facility]ORY [facility] Estimated Glomerular Filtration Rate >90 >=60 mL/min 10/03/2023 8:09 PM EDT LAB[facility]ORY [facility] Comment:eGFR is calculated b ased on the CKD-EPI 2020 equation. Sodium 136 135 - 146 mmol/L 10/03/2023 8:09 PM EDT LAB[facility] Potassium 4.2 3.5 - 5.1 mmol/L 10/03/2023 8:09 PM EDT LAB[facility]ORY [facility] Chloride 103 98 - 107 mmol/L 10/03/2023 8:09 PM EDT [facility] CO2 20(L) 22 - 32 mmol/L 10/03/2023 8:09 PM EDT [facility] Anion Gap 13 7 - 15 mmol/L 10/03/2023 8:09 PM EDT [facility] Glucose 166(H) 70 - 120 mg/dL 10/03/2023 8:09 PM EDT [facility] Calcium 8.3(L) 8.4 - 10.2 mg/dL 10/03/2023 8:09 PM EDT [facility] Blood Venous blood specimen / Unknown Venipuncture / Unknown 10/03/2023 7:32 PM EDT 10/03/2023 7:39 PM EDT Mariely Zurita MD LAB BLOOD ORDERABLES [facility] [address] [place] [address] * (ABNORMAL) CBC (10/03/2023 7:32 PM EDT) WBC 4.95 4.00 - 10.80 K/uL 10/03/2023 7:49 PM EDT [facility] RBC 2.64 3.85 - 5.15 M/uL 10/03/2023 7:49 PM EDT [facility] HGB 8.0(L) 12.0 - 15.3 g/dL 10/03/2023 7:49 PM EDT [facility] HCT 25.9(L) 36.0 - 45.2 % 10/03/2023 7:49 PM EDT [facility] MCV 98.1 81.5 - 97.5 fL 10/03/2023 7:49 PM EDT [facility] MCH 30.3 27.0 - 34.0 pg 10/03/2023 7:49 PM EDT [facility] MCHC 30.9 32.0 - 36.0 g/dL 10/03/2023 7:49 PM EDT [facility] RDW 21.7 11.5 - 15.5 % 10/03/2023 7:49 PM EDT [facility] PLT 114(L) 140 - 400 K/uL 10/03/2023 7:49 PM EDT [facility] MPV 10.3 6.6 - 11.1 fL 10/03/2023 7:49 PM EDT [facility] nRBCs 0 <=0 /100 WBCs 10/03/2023 7:49 PM EDT LAB[facility]ORY C Blood Venous blood specimen / Unknown Venipuncture / Unknown 10/03/2023 7:32 PM EDT 10/03/2023 7:39 PM EDT Dominga Silva DO LAB BLOOD ORDERABLES Performing Organization Address City/[facility]/ZIP Co de Phone Number [facility]AT[facility] [address] [place] [address] * PHOSPHORUS (10/03/2023 7:32 PM EDT) Phosphorus 4.5 2.5 - 4.8 mg/dL 10/03/2023 8:09 PM EDT [facility] Blood Venous blood specimen / Unknown Venipuncture / Unknown 10/03/2023 7:32 PM EDT 10/03/2023 7:39 PM EDT Al Conrad DO LAB BLOOD OR DERABLES Performing Organization Address City/[facility]/ZIP Co de Phone Number [facility]ATORY [facility] [address] [place] [address] * MAGNESIUM (10/03/2023 7:32 PM EDT) Magnesium 1.9 1.5 - 2.6 mg/dL 10/03/2023 8:09 PM EDT [facility] Blood Venous blood specimen / Unknown Venipuncture / Unknown 10/03/2023 7:32 PM EDT 10/03/2023 7:39 PM EDT Al Conrad DO LAB BLOOD OR DERABLES [facility] [address] [place] [address] * FLUORO UGI SINGLE CONTRAST (10/03/2023 10:20 AM EDT) Anatomical Region Laterality Modality Esoph, Neck, Chest, Abdomen, GI Radio Fluoroscopy 10/03/2023 2:47 PM EDT Impressions 10/03/2023 3:51 PM EDT IMPRESSION No evidence of leak. Mild narrowing of the post bulbar duodenum at the level of the clip, likely inflammatory I have personally reviewed this examination and agree with the resident/fellow physician's interpretation. Narrative 10/03/2023 3:51 PM EDT EXAM FLUORO UGI SINGLE CONTRAST-10/03/2023 10:20 am HISTORY contained duodenoal peforation, asses for leak COMPARISON Chest x-ray 09/29/2023, CT abdomen pelvis 09/29/2023. TECHNIQUE Single contrast fluoroscopic examination of the upper GI tract was performed with water-soluble Omnipaque contrast. FINDINGS [employer] view of the abdomen obtained prior to the procedure showed NG tube with side port in the proximal stomach and tip in the body of the stomach. Duodenal clip in the bulb.Orthopedic hardware of the right hip.Partially visualized pacemaker leads. The patient tolerated swallowing the oral contrast without difficulty. There was normal peristalsis of the esophagus. The esophagus showed no strictures or obstructing masses. Small hiatal hernia. No gastroesophageal reflux was seen. Contrast emptied normally from the esophagus into the stomach. The stomach was within normal limits. Contrast emptied normally from the stomach into the duodenum. The duodenum was within normal limits. Focused exam in the vicinity of duodenal clip showed no extravasation of contrast. There is mild narrowing of the proximal duodenum at the post bulbar level, likely inflammatory. Contrast promptly traversed the duodenal C-loop. The opacified small bowel was normal in caliber. Procedure Note Agnieszka Linda MD - 10/03/2023 EXAM FLUORO UGI SINGLE CONTRAST-10/03/2023 10:20 am HISTORY contained duodenoal peforation, asses for leak COMPARISON Chest x-ray 09/29/2023, CT abdomen pelvis 09/29/2023. TECHNIQUE Single contrast fluoroscopic examination of the upper GI tract wasperformed with water-soluble Omnipaque contrast. 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 The patient tolerated swallowing the oral contrast without difficulty.There was normal peristalsis of the esophagus. The esophagus showed nostrictures or obstructing masses. Small hiatal hernia. Nogastroesophageal reflux was seen. Contrast emptied normally from theesophagus into the stomach. The stomach was within normal limits. Contrast emptied normally from thestomach into the duodenum. The duodenum was within normal limits. Focused exam in the vicinity ofduodenal clip showed no extravasation of contrast. There is mildnarrowing of the proximal duodenum at the post bulbar level, likelyinflammatory. Contrast promptly traversed the duodenal C-loop. Theopacified small bowel was normal in caliber. IMPRESSION IMPRESSION No evidence of leak. Mild narrowing of the post bulbar duodenum at the level of the clip,likely inflammatory I have personally reviewed this examination and agree with the resident/fellow physician's interpretation. Landy Garcia MD RAD FLUOROSC OPY * TRIGLYCERIDES (10/03/2023 9:12 AM EDT) Pathologist [facility] Triglycerides 146 <=174 mg/dL 10/04/2023 3:33 AM EDT LAB[facility]ATORY [facility] Comment: Triglyceride Reference Ranges (mg/dL): <150 Acceptable 150-174 Borderline high 175-499 High >=500 Very high Blood Venous blood specimen / Unknown Venipuncture / Unknown 10/03/2023 9:12 AM EDT 10/03/2023 9:24 AM EDT Dominga Silva DO LAB BLOOD ORDERABLES LABORATORY [facility] [address] [place] [address] * CALCIUM, IONIZED (10/03/2023 9:12 AM EDT) Calcium, Ionized 1.21 1.13 - 1.32 mmol/L 10/03/2023 9:43 AM EDT LAB[facility]ATORY [facility] Comment:This test was develo ped and its performance characteristics dtermined by [employer]. It has not been cleared or approved by the US Food and Drug Administration Blood Venous blood specimen / Unknown Venipuncture / Unknown 10/03/2023 9:12 AM EDT 10/03/2023 9:24 AM EDT Al Conrad DO LAB BLOOD OR DERABLES LAB[facility]AT[facility] [address] [place] [address] * (ABNORMAL) BASIC METABOLIC PANEL (10/03/2023 7:11 AM EDT) BUN 9 6 - 20 mg/dL 10/03/2023 8:09 AM EDT LAB[facility]ATORY [facility] Creatinine 0.6 0.5 - 1.0 mg/dL 10/03/2023 8:09 AM EDT LAB[facility]ATORY [facility] Estimated Glomerular Filtration Rate >90 >=60 mL/min 10/03/2023 8:09 AM EDT LAB[facility] Comment:eGFR is calculated b ased on the CKD-EPI 2020 equation. Sodium 137 135 - 146 mmol/L 10/03/2023 8:09 AM EDT LABORATORY C Potassium 3.3(L) 3.5 - 5.1 mmol/L 10/03/2023 8:09 AM EDT LABORATORY C Chloride 105 98 - 107 mmol/L 10/03/2023 8:09 AM EDT LABORATORY C CO2 20(L) 22 - 32 mmol/L 10/03/2023 8:09 AM EDT LABORATORY C Anion Gap 12 7 - 15 mmol/L 10/03/2023 8:09 AM EDT LABORATORY C Glucose 111 70 - 120 mg/dL 10/03/2023 8:09 AM EDT [facility] Calcium 7.9(L) 8.4 - 10.2 mg/dL 10/03/2023 8:09 AM EDT LAB[facility] Blood Venous blood specimen / Unknown Venipuncture / Unknown 10/03/2023 7:11 AM EDT 10/03/2023 7:41 AM EDT Mariely Zurita MD LAB BLOOD ORDERABLES LAB[facility] [address] [place] [address] * (ABNORMAL) CBC (10/03/2023 7:11 AM EDT) WBC 4.70 4.00 - 10.80 K/uL 10/03/2023 7:53 AM EDT LAB[facility] RBC 2.45 3.85 - 5.15 M/uL 10/03/2023 7:53 AM EDT LAB[facility] HGB 7.6(L) 12.0 - 15.3 g/dL 10/03/2023 7:53 AM EDT LAB[facility] HCT 23.4(L) 36.0 - 45.2 % 10/03/2023 7:53 AM EDT LAB[facility] MCV 95.5 81.5 - 97.5 fL 10/03/2023 7:53 AM EDT LAB[facility] MCH 31.0 27.0 - 34.0 pg 10/03/2023 7:53 AM EDT LAB[facility] MCHC 32.5 32.0 - 36.0 g/dL 10/03/2023 7:53 AM EDT LAB[facility] RDW 21.4 11.5 - 15.5 % 10/03/2023 7:53 AM EDT LAB[facility] PLT 114(L) 140 - 400 K/uL 10/03/2023 7:53 AM EDT [facility] MPV 10.9 6.6 - 11.1 fL 10/03/2023 7:53 AM EDT LAB[facility] nRBCs 0 <=0 /100 WBCs 10/03/2023 7:53 AM EDT LAB[facility] Blood Venous blood specimen / Unknown Venipuncture / Unknown 10/03/2023 7:11 AM EDT 10/03/2023 7:40 AM EDT Kyoung Wook Cho DO LAB BLOOD ORDERABLES Performing Organization Address [facility] Co de Phone Number LABORATORY C [address] [place] [address] * PHOSPHORUS (10/03/2023 7:11 AM EDT) Phosphorus 2.7 2.5 - 4.8 mg/dL 10/03/2023 8:09 AM EDT LAB[facility]ORY [facility] Blood Venous blood specimen / Unknown Venipuncture / Unknown 10/03/2023 7:11 AM EDT 10/03/2023 7:41 AM EDT Afshan Nereida Saleh DO LAB BLOOD ORDERABLES Performing Organization Address [facility] Co de Phone Number LABORATORY [facility] [address] [place] [address] * MAGNESIUM (10/03/2023 7:11 AM EDT) Pathologist [facility] Magnesium 2.1 1.5 - 2.6 mg/dL 10/03/2023 8:09 AM EDT LAB[facility]ATORY [facility] Blood Venous blood specimen / Unknown Venipuncture / Unknown 10/03/2023 7:11 AM EDT 10/03/2023 7:41 AM EDT Afshan Nereida Saleh DO LAB BLOOD ORDERABLES Performing Organization Address [facility] Co de Phone Number LABORATORY [facility] [address] [place] [address] * (ABNORMAL) HEPATIC FUNCTION PANEL (10/03/2023 7:11 AM EDT) Albumin 3.0(L) 3.8 - 5.0 g/dL 10/03/2023 8:09 AM EDT LAB[facility]ORY [facility] AST 18 10 - 35 U/L 10/03/2023 8:09 AM EDT LAB[facility]ORY [facility] Alkaline Phosphatase 91 35 - 130 U/L 10/03/2023 8:09 AM EDT LAB[facility] ALT 13 10 - 35 U/L 10/03/2023 8:09 AM EDT LAB[facility]ORY [facility] Bilirubin, Total 0.3 <=1.2 mg/dL 10/03/2023 8:09 AM EDT LAB[facility]ORY [facility] Bilirubin, Direct <0.2 0.0 - 0.3 mg/dL 10/03/2023 8:09 AM EDT LAB[facility] Protein 4.9(L) 6.0 - 8.3 g/dL 10/03/2023 8:09 AM EDT LAB[facility] Blood Venous blood specimen / Unknown Venipuncture / Unknown 10/03/2023 7:11 AM EDT 10/03/2023 7:41 AM EDT Luis Manuel Bennett PA-C LAB BLOOD ORDERA BLES LAB[facility]ATORY [facility] [address] [place] [address] * (ABNORMAL) CBC (10/02/2023 7:48 PM EDT) WBC 13.11(H) 4.00 - 10.80 K/uL 10/02/2023 8:13 PM EDT LAB[facility]ORY [facility] RBC 2.50 3.85 - 5.15 M/uL 10/02/2023 8:13 PM EDT LAB[facility] HGB 7.7(L) 12.0 - 15.3 g/dL 10/02/2023 8:13 PM EDT LAB[facility] HCT 23.6(L) 36.0 - 45.2 % 10/02/2023 8:13 PM EDT LAB[facility] MCV 94.4 81.5 - 97.5 fL 10/02/2023 8:13 PM EDT LAB[facility] MCH 30.8 27.0 - 34.0 pg 10/02/2023 8:13 PM EDT LAB[facility] MCHC 32.6 32.0 - 36.0 g/dL 10/02/2023 8:13 PM EDT LAB[facility] RDW 21.3 11.5 - 15.5 % 10/02/2023 8:13 PM EDT LAB[facility] PLT 106(L) 140 - 400 K/uL 10/02/2023 8:13 PM EDT LAB[facility] MPV 10.3 6.6 - 11.1 fL 10/02/2023 8:13 PM EDT LABORATORY [facility] nRBCs 0 <=0 /100 WBCs 10/02/2023 8:13 PM EDT LABORATORY C Blood Venous blood specimen / Unknown Venipuncture / Unknown 10/02/2023 7:48 PM EDT 10/02/2023 7:53 PM EDT Dominga Silva DO LAB BLOOD ORDERABLES Performing Organization Address City/[facility]/ZIP Co de Phone Number LABORATORY [facility] [address] [place] [address] * PHOSPHORUS (10/02/2023 7:44 PM EDT) Phosphorus 2.8 2.5 - 4.8 mg/dL 10/02/2023 8:59 PM EDT LAB[facility]ATORY [facility] Blood Venous blood specimen / Unknown Venipuncture / Unknown 10/02/2023 7:44 PM EDT 10/02/2023 7:48 PM EDT Mariely Zurita MD LAB BLOOD ORDERABLES Performing Organization Address [facility] de Phone Number LABORATORY [facility] [address] [place] [address] * MAGNESIUM (10/02/2023 7:44 PM EDT) Magnesium 2.0 1.5 - 2.6 mg/dL 10/02/2023 8:59 PM EDT LABORATORY C Blood Venous blood specimen / Unknown Venipuncture / Unknown 10/02/2023 7:44 PM EDT 10/02/2023 7:48 PM EDT Mariely Zurita MD LAB BLOOD ORDERABLES Performing Organization Address [facility] de Phone Number LABORATORY [facility] [address] [place] [address] * (ABNORMAL) BASIC METABOLIC PANEL (10/02/2023 7:44 PM EDT) BUN 11 6 - 20 mg/dL 10/02/2023 8:14 PM EDT LAB[facility]ORY [facility] Creatinine 0.6 0.5 - 1.0 mg/dL 10/02/2023 8:14 PM EDT LAB[facility]ORY [facility] Estimated Glomerular Filtration Rate >90 >=60 mL/min 10/02/2023 8:14 PM EDT LAB[facility]ORY [facility] Comment:eGFR is calculated b ased on the CKD-EPI 2020 equation. Sodium 134(L) 135 - 146 mmol/L 10/02/2023 8:14 PM EDT LAB[facility] Potassium 4.1 3.5 - 5.1 mmol/L 10/02/2023 8:14 PM EDT LAB[facility] Chloride 103 98 - 107 mmol/L 10/02/2023 8:14 PM EDT [facility] CO2 13(L) 22 - 32 mmol/L 10/02/2023 8:14 PM EDT LAB[facility] Anion Gap 18(H) 7 - 15 mmol/L 10/02/2023 8:14 PM EDT LAB[facility] Glucose 78 70 - 120 mg/dL 10/02/2023 8:14 PM EDT LAB[facility] Calcium 7.7(L) 8.4 - 10.2 mg/dL 10/02/2023 8:14 PM EDT LAB[facility] Blood Venous blood specimen / Unknown Venipuncture / Unknown 10/02/2023 7:44 PM EDT 10/02/2023 7:48 PM EDT Mariely Zurita MD LAB BLOOD ORDERABLES LABORATORY [facility] [address] [place] [address] * PHOSPHORUS (10/02/2023 6:47 AM EDT) Phosphorus 2.9 2.5 - 4.8 mg/dL 10/02/2023 8:30 AM EDT LAB[facility]ORY [facility] Blood Venous blood specimen / Unknown Venipuncture / Unknown 10/02/2023 6:47 AM EDT 10/02/2023 6:53 AM EDT Afshan Saleh DO LAB BLOOD ORDERABLES LAB[facility] [address] [place] [address] * MAGNESIUM (10/02/2023 6:47 AM EDT) Magnesium 2.2 1.5 - 2.6 mg/dL 10/02/2023 8:30 AM EDT LAB[facility]ORY [facility] Blood Venous blood specimen / Unknown Venipuncture / Unknown 10/02/2023 6:47 AM EDT 10/02/2023 6:53 AM EDT Afshan Saleh DO LAB BLOOD ORDERABLES Performing Organization Address [facility] de Phone Number LABORATORY [facility] [address] [place] [address] * (ABNORMAL) CBC (10/02/2023 6:47 AM EDT) WBC 6.25 4.00 - 10.80 K/uL 10/02/2023 8:01 AM EDT LAB[facility] RBC 2.66 3.85 - 5.15 M/uL 10/02/2023 8:01 AM EDT LAB[facility]ORY [facility] HGB 8.0(L) 12.0 - 15.3 g/dL 10/02/2023 8:01 AM EDT LAB[facility]ORY [facility] HCT 26.4(L) 36.0 - 45.2 % 10/02/2023 8:01 AM EDT LAB[facility] MCV 99.2 81.5 - 97.5 fL 10/02/2023 8:01 AM EDT LAB[facility] MCH 30.1 27.0 - 34.0 pg 10/02/2023 8:01 AM EDT [facility] MCHC 30.3 32.0 - 36.0 g/dL 10/02/2023 8:01 AM EDT LAB[facility] RDW 21.7 11.5 - 15.5 % 10/02/2023 8:01 AM EDT LAB[facility] PLT 119(L) 140 - 400 K/uL 10/02/2023 8:01 AM EDT LAB[facility] MPV 10.8 6.6 - 11.1 fL 10/02/2023 8:01 AM EDT LAB[facility] nRBCs 0 <=0 /100 WBCs 10/02/2023 8:01 AM EDT [facility] Blood Venous blood specimen / Unknown 10/02/2023 6:47 AM EDT 10/02/2023 6:53 AM EDT Dominga Sliva DO LAB BLOOD ORDERABLES Performing Organization Address [facility]/ZIP Co de Phone Number LAB[facility]ATORY [facility] [address] [place] [address] * EXTRA LAVENDER TOP (10/02/2023 6:47 AM EDT) Blood Venous blood specimen / Unknown 10/02/2023 6:47 AM EDT 10/02/2023 6:53 AM EDT Diamond Ferris MD LAB BLOOD ORDERABLES Performing Organization Address [facility] Co de Phone Number LAB[facility]ATORY [facility] [address] [place] [address] * (ABNORMAL) HEPATIC FUNCTION PANEL (10/02/2023 6:47 AM EDT) [facility] Albumin 3.2(L) 3.8 - 5.0 g/dL 10/02/2023 7:14 AM EDT LAB[facility]ORY [facility] AST 20 10 - 35 U/L 10/02/2023 7:14 AM EDT LAB[facility]ORY [facility] Alkaline Phosphatase 91 35 - 130 U/L 10/02/2023 7:14 AM EDT LAB[facility] ALT 16 10 - 35 U/L 10/02/2023 7:14 AM EDT LAB[facility] Bilirubin, Total 0.5 <=1.2 mg/dL 10/02/2023 7:14 AM EDT LAB[facility] Bilirubin, Direct <0.2 0.0 - 0.3 mg/dL 10/02/2023 7:14 AM EDT LAB[facility] Protein 4.9(L) 6.0 - 8.3 g/dL 10/02/2023 7:14 AM EDT LAB[facility]ORY [facility] Blood Venous blood specimen / Unknown Venipuncture / Unknown 10/02/2023 6:47 AM EDT 10/02/2023 6:53 AM EDT Luis Manuel Bennett PA-C LAB BLOOD ORDERA BLES Performing Organization Address City/[facility]/ZIP Co de Phone Number LAB[facility]ATORY [facility] [address] [place] [address] * (ABNORMAL) BASIC METABOLIC PANEL (10/02/2023 6:47 AM EDT) BUN 13 6 - 20 mg/dL 10/02/2023 7:14 AM EDT LAB[facility] Creatinine 0.6 0.5 - 1.0 mg/dL 10/02/2023 7:14 AM EDT LAB[facility] Estimated Glomerular Filtration Rate >90 >=60 mL/min 10/02/2023 7:14 AM EDT LAB[facility]ORY [facility] Comment:eGFR is calculated b ased on the CKD-EPI 2020 equation. Sodium 134(L) 135 - 146 mmol/L 10/02/2023 7:14 AM EDT LAB[facility] Potassium 3.6 3.5 - 5.1 mmol/L 10/02/2023 7:14 AM EDT LAB[facility] Chloride 104 98 - 107 mmol/L 10/02/2023 7:14 AM EDT [facility] CO2 16(L) 22 - 32 mmol/L 10/02/2023 7:14 AM EDT [facility] Anion Gap 14 7 - 15 mmol/L 10/02/2023 7:14 AM EDT LAB[facility] Glucose 71 70 - 120 mg/dL 10/02/2023 7:14 AM EDT [facility] Calcium 7.7(L) 8.4 - 10.2 mg/dL 10/02/2023 7:14 AM EDT LAB[facility] Blood Venous blood specimen / Unknown Venipuncture / Unknown 10/02/2023 6:47 AM EDT 10/02/2023 6:53 AM EDT Luis Manuel Bennett PA-C LAB BLOOD ORDERA BLES Performing Organization Address City/[facility]/ZIP Co de Phone Number LAB[facility]ATORY [facility] [address] [place] [address] * (ABNORMAL) CBC (10/01/2023 9:01 PM EDT) WBC 6.75 4.00 - 10.80 K/uL 10/01/2023 9:13 PM EDT LAB[facility] RBC 2.59 3.85 - 5.15 M/uL 10/01/2023 9:13 PM EDT LAB[facility] HGB 7.9(L) 12.0 - 15.3 g/dL 10/01/2023 9:13 PM EDT LAB[facility] HCT 24.5(L) 36.0 - 45.2 % 10/01/2023 9:13 PM EDT LAB[facility] MCV 94.6 81.5 - 97.5 fL 10/01/2023 9:13 PM EDT LAB[facility] MCH 30.5 27.0 - 34.0 pg 10/01/2023 9:13 PM EDT LABORATORY [facility] MCHC 32.2 32.0 - 36.0 g/dL 10/01/2023 9:13 PM EDT LABORATORY [facility] RDW 21.6 11.5 - 15.5 % 10/01/2023 9:13 PM EDT LABORATORY [facility] PLT 117(L) 140 - 400 K/uL 10/01/2023 9:13 PM EDT LABORATORY [facility] MPV 10.1 6.6 - 11.1 fL 10/01/2023 9:13 PM EDT LABORATORY [facility] nRBCs 0 <=0 /100 WBCs 10/01/2023 9:13 PM EDT LAB[facility]ATORY [facility] Blood Venous blood specimen / Unknown Venipuncture / Unknown 10/01/2023 9:01 PM EDT 10/01/2023 9:06 PM EDT Fabiano Amezcua MD LAB BLOOD ORDERABLES LAB[facility]ATORY [facility] [address] [place] [address] * (ABNORMAL) CBC (10/01/2023 7:25 AM EDT) WBC 6.01 4.00 - 10.80 K/uL 10/01/2023 7:42 AM EDT LAB[facility] RBC 2.78 3.85 - 5.15 M/uL 10/01/2023 7:42 AM EDT LAB[facility]ORY [facility] HGB 8.5(L) 12.0 - 15.3 g/dL 10/01/2023 7:42 AM EDT LAB[facility]ORY [facility] HCT 26.0(L) 36.0 - 45.2 % 10/01/2023 7:42 AM EDT LAB[facility] MCV 93.5 81.5 - 97.5 fL 10/01/2023 7:42 AM EDT LAB[facility] MCH 30.6 27.0 - 34.0 pg 10/01/2023 7:42 AM EDT LAB[facility] MCHC 32.7 32.0 - 36.0 g/dL 10/01/2023 7:42 AM EDT LAB[facility]ORY [facility] RDW 21.0 11.5 - 15.5 % 10/01/2023 7:42 AM EDT LAB[facility]ORY [facility] PLT 111(L) 140 - 400 K/uL 10/01/2023 7:42 AM EDT LAB[facility] MPV 10.1 6.6 - 11.1 fL 10/01/2023 7:42 AM EDT LAB[facility]ORY [facility] nRBCs 0 <=0 /100 WBCs 10/01/2023 7:42 AM EDT LABORATORY [facility] Blood Venous blood specimen / Unknown Venipuncture / Unknown 10/01/2023 7:25 AM EDT 10/01/2023 7:35 AM EDT Fabiano Amezcua MD LAB BLOOD ORDERABLES Performing Organization Address City/State/[facility] Co de Phone Number LABORATORY [facility] [address] [place] [address] * CALCIUM, IONIZED (10/01/2023 4:48 AM EDT) [facility] Calcium, Ionized 1.15 1.13 - 1.32 mmol/L 10/01/2023 5:40 AM EDT LAB[facility]ATORY [facility] Comment:This test was develo ped and its performance characteristics dtermined by [employer]. It has not been cleared or approved by the [place] Food and Drug Administration Blood Venous blood specimen / Unknown Venipuncture / Unknown 10/01/2023 4:48 AM EDT 10/01/2023 5:07 AM EDT Luis Manuel Bennett PA-C LAB BLOOD ORDERA BLES Performing Organization Address [facility] de Phone Number LABORATORY [facility] [address] [place] [address] * PHOSPHORUS (10/01/2023 4:48 AM EDT) Phosphorus 3.4 2.5 - 4.8 mg/dL 10/01/2023 5:40 AM EDT LAB[facility]ORY [facility] Blood Venous blood specimen / Unknown Venipuncture / Unknown 10/01/2023 4:48 AM EDT 10/01/2023 5:07 AM EDT Luis Manuel Bennett PA-C LAB BLOOD ORDERA BLES Performing Organization Address [facility] de Phone Number LABORATORY [facility] [address] [place] [address] * MAGNESIUM (10/01/2023 4:48 AM EDT) Magnesium 2.3 1.5 - 2.6 mg/dL 10/01/2023 5:40 AM EDT LABORATORY C Blood Venous blood specimen / Unknown Venipuncture / Unknown 10/01/2023 4:48 AM EDT 10/01/2023 5:07 AM EDT Luis Manuel Bennett PA-C LAB BLOOD ORDERA BLES Performing Organization Address [facility] de Phone Number LABORATORY C [address] [place] [address] * (ABNORMAL) CBC (10/01/2023 4:48 AM EDT) WBC 5.90 4.00 - 10.80 K/uL 10/01/2023 5:19 AM EDT LAB[facility]ORY [facility] RBC 2.72 3.85 - 5.15 M/uL 10/01/2023 5:19 AM EDT LAB[facility]ORY [facility] HGB 8.2(L) 12.0 - 15.3 g/dL 10/01/2023 5:19 AM EDT LAB[facility]ORY [facility] HCT 26.0(L) 36.0 - 45.2 % 10/01/2023 5:19 AM EDT LAB[facility]ORY [facility] MCV 95.6 81.5 - 97.5 fL 10/01/2023 5:19 AM EDT LAB[facility]ORY [facility] MCH 30.1 27.0 - 34.0 pg 10/01/2023 5:19 AM EDT LAB[facility]ORY [facility] MCHC 31.5 32.0 - 36.0 g/dL 10/01/2023 5:19 AM EDT LAB[facility]ATORY [facility] RDW 21.0 11.5 - 15.5 % 10/01/2023 5:19 AM EDT LABORATORY [facility] PLT 108(L) 140 - 400 K/uL 10/01/2023 5:19 AM EDT LAB[facility]ORY [facility] MPV 10.9 6.6 - 11.1 fL 10/01/2023 5:19 AM EDT LAB[facility]ATORY [facility] nRBCs 0 <=0 /100 WBCs 10/01/2023 5:19 AM EDT LAB[facility]ORY [facility] Blood Venous blood specimen / Unknown Venipuncture / Unknown 10/01/2023 4:48 AM EDT 10/01/2023 5:07 AM EDT Luis Manuel Bennett PA-C LAB BLOOD ORDERA BLES LABORATORY [facility] [address] [place] [address] * (ABNORMAL) HEPATIC FUNCTION PANEL (10/01/2023 4:48 AM EDT) [facility] Albumin 2.9(L) 3.8 - 5.0 g/dL 10/01/2023 5:40 AM EDT LAB[facility]ORY [facility] AST 20 10 - 35 U/L 10/01/2023 5:40 AM EDT LAB[facility]ATORY [facility] Alkaline Phosphatase 89 35 - 130 U/L 10/01/2023 5:40 AM EDT LAB[facility]ORY [facility] ALT 14 10 - 35 U/L 10/01/2023 5:40 AM EDT LAB[facility]ORY [facility] Bilirubin, Total 0.5 <=1.2 mg/dL 10/01/2023 5:40 AM EDT LAB[facility]ATORY [facility] Bilirubin, Direct <0.2 0.0 - 0.3 mg/dL 10/01/2023 5:40 AM EDT LAB[facility]ORY [facility] Protein 4.7(L) 6.0 - 8.3 g/dL 10/01/2023 5:40 AM EDT LAB[facility]ATORY [facility] Blood Venous blood specimen / Unknown Venipuncture / Unknown 10/01/2023 4:48 AM EDT 10/01/2023 5:07 AM EDT Luis Manuel Bennett PA-C LAB BLOOD ORDERA BLES LABORATORY [facility] [address] [place] [address] * (ABNORMAL) BASIC METABOLIC PANEL (10/01/2023 4:48 AM EDT) BUN 11 6 - 20 mg/dL 10/01/2023 5:40 AM EDT LAB[facility]ORY [facility] Creatinine 0.6 0.5 - 1.0 mg/dL 10/01/2023 5:40 AM EDT LAB[facility]ORY [facility] Estimated Glomerular Filtration Rate >90 >=60 mL/min 10/01/2023 5:40 AM EDT LAB[facility]ORY [facility] Comment:eGFR is calculated b ased on the CKD-EPI 2020 equation. Sodium 136 135 - 146 mmol/L 10/01/2023 5:40 AM EDT LAB[facility]ORY [facility] Potassium 3.7 3.5 - 5.1 mmol/L 10/01/2023 5:40 AM EDT LAB[facility]ORY [facility] Chloride 106 98 - 107 mmol/L 10/01/2023 5:40 AM EDT LAB[facility]ORY [facility] CO2 21(L) 22 - 32 mmol/L 10/01/2023 5:40 AM EDT LAB[facility]ORY [facility] Anion Gap 9 7 - 15 mmol/L 10/01/2023 5:40 AM EDT LAB[facility]ORY [facility] Glucose 76 70 - 120 mg/dL 10/01/2023 5:40 AM EDT LAB[facility] Calcium 7.8(L) 8.4 - 10.2 mg/dL 10/01/2023 5:40 AM EDT LAB[facility]ORY [facility] Blood Venous blood specimen / Unknown Venipuncture / Unknown 10/01/2023 4:48 AM EDT 10/01/2023 5:07 AM EDT Luis Manuel Bennett PA-C LAB BLOOD ORDERA BLES LAB[facility]ORY [facility] [address] [place] [address] * (ABNORMAL) CBC (10/01/2023 12:39 AM EDT) WBC 6.95 4.00 - 10.80 K/uL 10/01/2023 1:18 AM EDT LAB[facility]ATORY [facility] RBC 2.78 3.85 - 5.15 M/uL 10/01/2023 1:18 AM EDT LAB[facility]ATORY [facility] HGB 8.3(L) 12.0 - 15.3 g/dL 10/01/2023 1:18 AM EDT LAB[facility]ATORY [facility] HCT 25.7(L) 36.0 - 45.2 % 10/01/2023 1:18 AM EDT LABORATORY [facility] MCV 92.4 81.5 - 97.5 fL 10/01/2023 1:18 AM EDT LAB[facility]ATORY [facility] MCH 29.9 27.0 - 34.0 pg 10/01/2023 1:18 AM EDT LABORATORY C MCHC 32.3 32.0 - 36.0 g/dL 10/01/2023 1:18 AM EDT LABORATORY [facility] RDW 20.9 11.5 - 15.5 % 10/01/2023 1:18 AM EDT LABORATORY [facility] PLT 104(L) 140 - 400 K/uL 10/01/2023 1:18 AM EDT LABORATORY GM MPV 11.0 6.6 - 11.1 fL 10/01/2023 1:18 AM EDT LABORATORY GM nRBCs 0 <=0 /100 WBCs 10/01/2023 1:18 AM EDT LABORATORY [facility] Blood Venous blood specimen / Unknown Venipuncture / Unknown 10/01/2023 12:39 AM EDT 10/01/2023 1:02 AM EDT Luis Manuel Bennett PA-C LAB BLOOD ORDER[facility] BLES LAB[facility]AT[facility] [address] [place] [address] * (ABNORMAL) CBC (09/30/2023 7:18 PM EDT) [facility] WBC 7.21 4.00 - 10.80 K/uL 09/30/2023 7:30 PM EDT LABORATORY [facility] RBC 2.94 3.85 - 5.15 M/uL 09/30/2023 7:30 PM EDT LABORATORY [facility] HGB 8.9(L) 12.0 - 15.3 g/dL 09/30/2023 7:30 PM EDT LABORATORY [facility] HCT 27.4(L) 36.0 - 45.2 % 09/30/2023 7:30 PM EDT LABORATORY [facility] MCV 93.2 81.5 - 97.5 fL 09/30/2023 7:30 PM EDT LABORATORY GM MCH 30.3 27.0 - 34.0 pg 09/30/2023 7:30 PM EDT LABORATORY [facility] MCHC 32.5 32.0 - 36.0 g/dL 09/30/2023 7:30 PM EDT LABORATORY [facility] RDW 21.1 11.5 - 15.5 % 09/30/2023 7:30 PM EDT LABORATORY GM PLT 119(L) 140 - 400 K/uL 09/30/2023 7:30 PM EDT LABORATORY [facility] MPV 10.0 6.6 - 11.1 fL 09/30/2023 7:30 PM EDT LAB[facility]ATORY [facility] nRBCs 0 <=0 /100 WBCs 09/30/2023 7:30 PM EDT LABORATORY [facility] Blood Venous blood specimen / Unknown Venipuncture / Unknown 09/30/2023 7:18 PM EDT 09/30/2023 7:24 PM EDT Luis Manuel Bennett PA-C LAB BLOOD ORDERA BL[facility] LAB[facility] [address] [place] [address] * (ABNORMAL) CBC (09/30/2023 11:22 AM EDT) WBC 7.77 4.00 - 10.80 K/uL 09/30/2023 12:43 PM EDT LABORATORY [facility] RBC 2.96 3.85 - 5.15 M/uL 09/30/2023 12:43 PM EDT LABORATORY [facility] HGB 8.8(L) 12.0 - 15.3 g/dL 09/30/2023 12:43 PM EDT LABORATORY [facility] HCT 27.1(L) 36.0 - 45.2 % 09/30/2023 12:43 PM EDT LABORATORY [facility] MCV 91.6 81.5 - 97.5 fL 09/30/2023 12:43 PM EDT LABORATORY [facility] MCH 29.7 27.0 - 34.0 pg 09/30/2023 12:43 PM EDT LABORATORY [facility] MCHC 32.5 32.0 - 36.0 g/dL 09/30/2023 12:43 PM EDT LABORATORY [facility] RDW 20.9 11.5 - 15.5 % 09/30/2023 12:43 PM EDT LABORATORY GM PLT 113(L) 140 - 400 K/uL 09/30/2023 12:43 PM EDT LABORATORY [facility] MPV 10.3 6.6 - 11.1 fL 09/30/2023 12:43 PM EDT LABORATORY [facility] nRBCs 0 <=0 /100 WBCs 09/30/2023 12:43 PM EDT LABORATORY [facility] Blood Venous blood specimen / Unknown Venipuncture / Unknown 09/30/2023 11:22 AM EDT 09/30/2023 12:21 PM EDT Luis Manuel Bennett PA-C LAB BLOOD [facility] LAB[facility] [address] [place] [address] * LACTATE (09/30/2023 5:30 AM EDT) Pathologist [facility] Lactate 0.7 0.4 - 2.0 mmol/L 09/30/2023 6:11 AM EDT LABORATORY [facility] Blood Venous blood specimen / Unknown Venipuncture / Unknown 09/30/2023 5:30 AM EDT 09/30/2023 5:43 AM EDT Luis Manuel Bennett PA-C LAB BLOOD ORDERA BLES Performing Organization Address [facility] de Phone Number LABORATORY [facility] [address] [place] [address] * (ABNORMAL) CALCIUM, IONIZED (09/30/2023 5:30 AM EDT) Calcium, Ionized 1.12(L) 1.13 - 1.32 mmol/L 09/30/2023 6:29 AM EDT LABORATORY [facility] Comment:This test was develo ped and its performance characteristics dtermined by [employer]. It has not been cleared or approved by the [place] Food and Drug Administration Blood Venous blood specimen / Unknown Venipuncture / Unknown 09/30/2023 5:30 AM EDT 09/30/2023 5:44 AM EDT Luis Manuel Bennett PA-C LAB BLOOD ORDERA BLES Performing Organization Address [facility] de Phone Number LABORATORY [facility] [address] [place] [address] * PHOSPHORUS (09/30/2023 5:30 AM EDT) Phosphorus 3.5 2.5 - 4.8 mg/dL 09/30/2023 6:14 AM EDT LAB[facility]ATORY [facility] Blood Venous blood specimen / Unknown Venipuncture / Unknown 09/30/2023 5:30 AM EDT 09/30/2023 5:43 AM EDT Luis Manuel Bennett PA-C LAB BLOOD ORDERA BLES Performing Organization Address [facility] de Phone Number LABORATORY [facility] [address] [place] [address] * MAGNESIUM (09/30/2023 5:30 AM EDT) Magnesium 2.3 1.5 - 2.6 mg/dL 09/30/2023 6:14 AM EDT LABORATORY [facility] Blood Venous blood specimen / Unknown Venipuncture / Unknown 09/30/2023 5:30 AM EDT 09/30/2023 5:43 AM EDT Luis Manuel Herberth Bennett PA-C LAB BLOOD ORDERA BLES LABORATORY [facility] [address] [place], [place] [id number] * (ABNORMAL) CBC (09/30/2023 5:30 AM EDT) [facility] WBC 5.85 4.00 - 10.80 K/uL 09/30/2023 6:06 AM EDT LABORATORY [facility] RBC 2.74 3.85 - 5.15 M/uL 09/30/2023 6:06 AM EDT LABORATORY [facility] HGB 8.1(L) 12.0 - 15.3 g/dL 09/30/2023 6:06 AM EDT LAB[facility]ATORY [facility] HCT 25.1(L) 36.0 - 45.2 % 09/30/2023 6:06 AM EDT LABORATORY [facility] MCV 91.6 81.5 - 97.5 fL 09/30/2023 6:06 AM EDT LAB[facility]ATORY [facility] MCH 29.6 27.0 - 34.0 pg 09/30/2023 6:06 AM EDT LAB[facility]ATORY [facility] MCHC 32.3 32.0 - 36.0 g/dL 09/30/2023 6:06 AM EDT LAB[facility]ATORY [facility] RDW 20.8 11.5 - 15.5 % 09/30/2023 6:06 AM EDT LABORATORY [facility] PLT 102(L) 140 - 400 K/uL 09/30/2023 6:06 AM EDT LAB[facility]ATORY [facility] MPV 10.3 6.6 - 11.1 fL 09/30/2023 6:06 AM EDT LABORATORY [facility] nRBCs 0 <=0 /100 WBCs 09/30/2023 6:06 AM EDT LAB[facility]ATORY [facility] Blood Venous blood specimen / Unknown Venipuncture / Unknown 09/30/2023 5:30 AM EDT 09/30/2023 5:43 AM EDT Luis Manuel Bennett PA-C LAB BLOOD ORDERA BLES Performing Organization Address [facility]/ZIP Co de Phone Number LABORATORY C [address] [place] [address] * (ABNORMAL) HEPATIC FUNCTION PANEL (09/30/2023 5:30 AM EDT) Albumin 2.8(L) 3.8 - 5.0 g/dL 09/30/2023 6:14 AM EDT LABORATORY [facility] AST 22 10 - 35 U/L 09/30/2023 6:14 AM EDT LABORATORY [facility] Alkaline Phosphatase 90 35 - 130 U/L 09/30/2023 6:14 AM EDT LAB[facility]ATORY [facility] ALT 18 10 - 35 U/L 09/30/2023 6:14 AM EDT LAB[facility]ATORY [facility] Bilirubin, Total 0.6 <=1.2 mg/dL 09/30/2023 6:14 AM EDT LABORATORY [facility] Bilirubin, Direct <0.2 0.0 - 0.3 mg/dL 09/30/2023 6:14 AM EDT LAB[facility]ATORY [facility] Protein 4.8(L) 6.0 - 8.3 g/dL 09/30/2023 6:14 AM EDT LAB[facility]ATORY [facility] Blood Venous blood specimen / Unknown Venipuncture / Unknown 09/30/2023 5:30 AM EDT 09/30/2023 5:43 AM EDT Luis Manuel Bennett PA-C LAB BLOOD ORDERA BLES Performing Organization Address [facility] Co de Phone Number LABORATORY [facility] [address] [place] [address] * (ABNORMAL) BASIC METABOLIC PANEL (09/30/2023 5:30 AM EDT) BUN 7 6 - 20 mg/dL 09/30/2023 6:14 AM EDT LABORATORY [facility] Creatinine 0.6 0.5 - 1.0 mg/dL 09/30/2023 6:14 AM EDT LABORATORY [facility] Estimated Glomerular Filtration Rate >90 >=60 mL/min 09/30/2023 6:14 AM EDT LABORATORY [facility] Comment:eGFR is calculated b ased on the CKD-EPI 2020 equation. Sodium 137 135 - 146 mmol/L 09/30/2023 6:14 AM EDT LABORATORY [facility] Potassium 3.5 3.5 - 5.1 mmol/L 09/30/2023 6:14 AM EDT LABORATORY [facility] Chloride 106 98 - 107 mmol/L 09/30/2023 6:14 AM EDT LAB[facility]ATORY [facility] CO2 22 22 - 32 mmol/L 09/30/2023 6:14 AM EDT LAB[facility]ATORY [facility] Anion Gap 9 7 - 15 mmol/L 09/30/2023 6:14 AM EDT LAB[facility]ATORY [facility] Glucose 89 70 - 120 mg/dL 09/30/2023 6:14 AM EDT LAB[facility]ATORY [facility] Calcium 7.9(L) 8.4 - 10.2 mg/dL 09/30/2023 6:14 AM EDT LABORATORY [facility] Blood Venous blood specimen / Unknown Venipuncture / Unknown 09/30/2023 5:30 AM EDT 09/30/2023 5:43 AM EDT Luis Manuel Bennett PA-C LAB BLOOD ORDERA BLES Performing Organization Address City/[facility]/ZIP Co de Phone Number LABORATORY [facility] [address] [place] [address] * LACTATE (09/29/2023 11:31 PM EDT) Lactate 0.8 0.4 - 2.0 mmol/L 09/30/2023 12:26 AM EDT LAB[facility]ATORY [facility] Blood Venous blood specimen / Unknown Venipuncture / Unknown 09/29/2023 11:31 PM EDT 09/29/2023 11:55 PM EDT Luis Manuel Bennett PA-C LAB BLOOD ORDERA BLES Performing Organization Address City/[facility]/ZIP Co de Phone Number LABORATORY [facility] [address] [place] [address] * (ABNORMAL) CBC (09/29/2023 11:18 PM EDT) WBC 6.47 4.00 - 10.80 K/uL 09/29/2023 11:48 PM EDT LABORATORY [facility] RBC 2.94 3.85 - 5.15 M/uL 09/29/2023 11:48 PM EDT LABORATORY [facility] HGB 8.9(L) 12.0 - 15.3 g/dL 09/29/2023 11:48 PM EDT LABORATORY [facility] HCT 26.6(L) 36.0 - 45.2 % 09/29/2023 11:48 PM EDT LAB[facility]ATORY [facility] MCV 90.5 81.5 - 97.5 fL 09/29/2023 11:48 PM EDT LAB[facility]ATORY [facility] MCH 30.3 27.0 - 34.0 pg 09/29/2023 11:48 PM EDT LAB[facility]ATORY [facility] MCHC 33.5 32.0 - 36.0 g/dL 09/29/2023 11:48 PM EDT LAB[facility]ATORY [facility] RDW 20.8 11.5 - 15.5 % 09/29/2023 11:48 PM EDT LABORATORY [facility] PLT 105(L) 140 - 400 K/uL 09/29/2023 11:48 PM EDT LAB[facility]ATORY [facility] MPV 10.2 6.6 - 11.1 fL 09/29/2023 11:48 PM EDT LABORATORY [facility] nRBCs 0 <=0 /100 WBCs 09/29/2023 11:48 PM EDT LABORATORY [facility] Blood Capillary blood specimen / Unknown Capillary / Unknown 09/29/2023 11:18 PM EDT 09/29/2023 11:27 PM EDT Luis Manuel Bennett PA-C LAB BLOOD ORDERA BLES LABORATORY [facility] [address] [place] [address] * LACTATE (09/29/2023 5:18 PM EDT) Lactate 1.0 0.4 - 2.0 mmol/L 09/29/2023 6:03 PM EDT LAB[facility]ATORY [facility] Blood Venous blood specimen / Unknown Venipuncture / Unknown 09/29/2023 5:18 PM EDT 09/29/2023 5:35 PM EDT Luis Manuel Bennett PA-C LAB BLOOD ORDERA BLES LAB[facility]ATORY [facility] [address] [place] [address] * (ABNORMAL) CBC (09/29/2023 5:18 PM EDT) WBC 6.25 4.00 - 10.80 K/uL 09/29/2023 6:02 PM EDT LABORATORY [facility] RBC 2.74 3.85 - 5.15 M/uL 09/29/2023 6:02 PM EDT LABORATORY [facility] HGB 8.2(L) 12.0 - 15.3 g/dL 09/29/2023 6:02 PM EDT LABORATORY [facility] HCT 24.4(L) 36.0 - 45.2 % 09/29/2023 6:02 PM EDT LABORATORY [facility] MCV 89.1 81.5 - 97.5 fL 09/29/2023 6:02 PM EDT LABORATORY [facility] MCH 29.9 27.0 - 34.0 pg 09/29/2023 6:02 PM EDT LABORATORY [facility] MCHC 33.6 32.0 - 36.0 g/dL 09/29/2023 6:02 PM EDT LAB[facility]ATORY [facility] RDW 20.9 11.5 - 15.5 % 09/29/2023 6:02 PM EDT LABORATORY [facility] PLT 120(L) 140 - 400 K/uL 09/29/2023 6:02 PM EDT LABORATORY [facility] MPV 10.5 6.6 - 11.1 fL 09/29/2023 6:02 PM EDT LABORATORY [facility] nRBCs 0 <=0 /100 WBCs 09/29/2023 6:02 PM EDT LAB[facility]ATORY [facility] Blood Venous blood specimen / Unknown Venipuncture / Unknown 09/29/2023 5:18 PM EDT 09/29/2023 5:35 PM EDT Luis Manuel Bennett PA-C LAB BLOOD ORDERA BLES LAB[facility]ATORY [facility] [address] [place] [address] * LACTATE (09/29/2023 11:38 AM EDT) Lactate 0.9 0.4 - 2.0 mmol/L 09/29/2023 12:15 PM EDT LABORATORY [facility] Blood Venous blood specimen / Unknown Venipuncture / Unknown 09/29/2023 11:38 AM EDT 09/29/2023 11:49 AM EDT Luis Manuel Bennett PA-C LAB BLOOD ORDERA BLES LAB[facility]ATORY [facility] [address] [place] [address] * (ABNORMAL) CBC (09/29/2023 11:38 AM EDT) WBC 6.94 4.00 - 10.80 K/uL 09/29/2023 12:08 PM EDT LABORATORY [facility] RBC 2.79 3.85 - 5.15 M/uL 09/29/2023 12:08 PM EDT LABORATORY C HGB 8.2(L) 12.0 - 15.3 g/dL 09/29/2023 12:08 PM EDT LABORATORY [facility] HCT 24.9(L) 36.0 - 45.2 % 09/29/2023 12:08 PM EDT LABORATORY [facility] MCV 89.2 81.5 - 97.5 fL 09/29/2023 12:08 PM EDT LABORATORY [facility] MCH 29.4 27.0 - 34.0 pg 09/29/2023 12:08 PM EDT LABORATORY [facility] MCHC 32.9 32.0 - 36.0 g/dL 09/29/2023 12:08 PM EDT LABORATORY C RDW 21.1 11.5 - 15.5 % 09/29/2023 12:08 PM EDT LABORATORY [facility] PLT 101(L) 140 - 400 K/uL 09/29/2023 12:08 PM EDT LABORATORY [facility] MPV 10.2 6.6 - 11.1 fL 09/29/2023 12:08 PM EDT LABORATORY [facility] nRBCs 0 <=0 /100 WBCs 09/29/2023 12:08 PM EDT LAB[facility]ATORY [facility] Blood Venous blood specimen / Unknown Venipuncture / Unknown 09/29/2023 11:38 AM EDT 09/29/2023 11:49 AM EDT Luis Manuel Bennett PA-C LAB BLOOD ORDERA BLES LABORATORY [facility] [address] [place] [address] * XR ABDOMEN 1 VIEW (09/29/2023 10:26 AM EDT) Anatomical Region Laterality Modality Abdomen, Pelvis Computed Radiogr aphy 09/29/2023 10:3 6 AM EDT Impressions 09/29/2023 10:38 AM EDT IMPRESSION Interval placement of a gastric tube, appropriately positioned. I have personally reviewed this examination and agree with the resident/fellow physician's interpretation. Narrative 09/29/2023 10:38 AM EDT EXAM XR ABDOMEN 1 VIEW-09/29/2023 10:26 am HISTORY Gastric Tube placement verification COMPARISON CT abdomen/pelvis dated 09/29/2023 TECHNIQUE Single AP view encompassing portions of the chest and abdomen is submitted. FINDINGS Interval placement of a gastric tube terminating in the body of the stomach with its side port in the proximal stomach. Duodenal clip. Incompletely visualized pacemaker leads. Visualized bowel gas pattern is nonobstructive. The osseous structures are unremarkable for age. Procedure Note Erich Kent MD - 09/29/2023 EXAM XR ABDOMEN 1 VIEW-09/29/2023 10:26 am HISTORY Gastric Tube placement verification COMPARISON CT abdomen/pelvis dated 09/29/2023 TECHNIQUE Single AP view encompassing portions of the chest and abdomen issubmitted. FINDINGS Interval placement of a gastric tube terminating in the body of thestomach with its side port in the proximal stomach. Duodenal clip.Incompletely visualized pacemaker leads. Visualized bowel gas pattern is nonobstructive. The osseous structures are unremarkable for age. IMPRESSION IMPRESSION Interval placement of a gastric tube, appropriately positioned. I have personally reviewed this examination and agree with the resident/fellow physician's interpretation. Fabiano Amezcua MD RADIOLOGY (RAD GENER AL) * CTA ABD/PELVIS (09/29/2023 6:40 AM EDT) Anatomical Region Laterality Modality Abdomen, Pelvis, Body Computed T omography 09/29/2023 7:06 AM EDT Impressions 09/29/2023 7:04 AM EDT IMPRESSION 1. No active arterial extravasation status post endoscopic clip placement within the duodenum. 2. Few foci of air adjacent to the 2nd and 3rd portions of the duodenum concerning for contained perforation. 3. Small bilateral pleural effusions. Narrative 09/29/2023 7:[address] angiography of the abdomen and pelvis obtained 09/29/2023 HISTORY Duodenal bleed COMPARISON CT pelvis 09/05/2023. CT thorax 09/04/2023. TECHNIQUE An initial scan was performed without contrast through the abdomen and pelvis. Following the administration of intravenous contrast computed tomography was performed through the abdomen and pelvis in the arterial phase. Coronal and sagittal reconstructions were created from the axial data. Three-dimensional reconstructions were performed on a separate workstation. FINDINGS Vasculature: Aorta: The abdominal aorta is tortuous with scattered atherosclerotic plaques. Renal: The renal arteries are patent with mild mixed atheromatous disease.Accessory renal arteries bilaterally.There is conventional anatomy of the renal veins. Celiac: Patent without significant stenosis. The left gastric artery, splenic artery and common hepatic artery arise from the celiac artery. There is conventional hepatic arterial anatomy. Superior mesenteric: Patent without significant stenosis. The branching pattern is unremarkable. Inferior mesenteric: Patent. Iliac: The iliac arteries are normal in course with partially calcified atherosclerotic plaques without significant stenosis.No significant stenosis of the internal or external iliac arteries is identified. Femoral: The common and imaged superficial and deep femoral arteries are normal in course and caliber without significant stenosis. Visualized thorax: Mild diffuse bronchial wall thickening. Subsegmental atelectasis in the bilateral lower lobes. Small bilateral pleural effusions. Partial visualization of biventricular AICD. Hepatobiliary: The liver is grossly unremarkable.The gallbladder is present. Pancreas: Unremarkable. Spleen: Unremarkable. Adrenal glands: Unremarkable. Kidneys, ureters and bladder: The kidneys are grossly unremarkable.Too small to characterize hypodensities, statistically represents simple cysts.There is no hydronephrosis or nephrolithiasis. The bladder is within normal limits. Reproductive: Unremarkable. Abdominopelvic lymph nodes: No lymphadenopathy. Peritoneum and retroperitoneum: Enteric contrast within the colon and small bowel limits evaluation. Small sliding-type hiatal hernia. There is mild stranding and edema within the duodenum with an endoscopic clip in place. No active arterial extravasation. There are few foci of air adjacent to the 2nd and 3rd portions of the duodenum (series 10, images 220 through 240) concerning for contained perforation. Mesenteric and retroperitoneal stranding, nonspecific.No obstruction.No free air or free fluid. Bones: No acute fracture or suspicious osseous lesion. 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 Soft tissues: Anasarca and soft tissue swelling and hematoma within the right gluteal soft tissues, expected post procedure findings. Procedure Note Yasmani Ignacio MD - 09/29/[address] angiography of the abdomen and pelvis obtained 09/29/2023 HISTORY Duodenal bleed COMPARISON CT pelvis 09/05/2023. CT thorax 09/04/2023. TECHNIQUE An initial scan was performed without contrast through the abdomen andpelvis. Following the administration of intravenous contrast computedtomography was performed through the abdomen and pelvis in the arterialphase. Coronal and sagittal reconstructions were created from the axialdata. Three-dimensional reconstructions were performed on a separateworkstation. FINDINGS Vasculature: Aorta: The abdominal aorta is tortuous with scattered atheroscleroticplaques. Renal: The renal arteries are patent with mild mixed atheromatousdisease.Accessory renal arteries bilaterally.There is conventional anatomyof the renal veins. Celiac: Patent without significant stenosis. The left gastric artery,splenic artery and common hepatic artery arise from the celiac artery.There is conventional hepatic arterial anatomy. Superior mesenteric: Patent without significant stenosis. The branchingpattern is unremarkable. Inferior mesenteric: Patent. Iliac: The iliac arteries are normal in course with partially calcifiedatherosclerotic plaques without significant stenosis.No significantstenosis of the internal or external iliac arteries is identified. Femoral: The common and imaged superficial and deep femoral arteries arenormal in course and caliber without significant stenosis. Visualized thorax: Mild diffuse bronchial wall thickening. Subsegmentalatelectasis in the bilateral lower lobes. Small bilateral pleuraleffusions. Partial visualization of biventricular AICD. Hepatobiliary: The liver is grossly unremarkable.The gallbladder ispresent. Pancreas: Unremarkable. Spleen: Unremarkable. Adrenal glands: Unremarkable. Kidneys, ureters and bladder: The kidneys are grossly unremarkable.Toosmall to characterize hypodensities, statistically represents simplecysts.There is no hydronephrosis or nephrolithiasis. The bladder iswithin normal limits. Reproductive: Unremarkable. Abdominopelvic lymph nodes: No lymphadenopathy. Peritoneum and retroperitoneum: Enteric contrast within the colon andsmall bowel limits evaluation. Small sliding-type hiatal hernia. Thereis mild stranding and edema within the duodenum with an endoscopic clip inplace. No active arterial extravasation. There are few foci of airadjacent to the 2nd and 3rd portions of the duodenum (series 10, [id number]) concerning for contained perforation. Mesenteric andretroperitoneal stranding, nonspecific.No obstruction.No free air or freefluid. Bones: No acute fracture or suspicious osseous lesion. Postsurgicalchange of right hip total arthroplasty with multiple acetabular screws,unchanged from 09/05/2023. Soft tissues: Anasarca and soft tissue swelling and hematoma within theright gluteal soft tissues, expected post procedure findings. IMPRESSION IMPRESSION 1. No active arterial extravasation status post endoscopic clip placementwithin the duodenum. 2. Few foci of air adjacent to the 2nd and 3rd portions of the duodenumconcerning for contained perforation. 3. Small bilateral pleural effusions. Yasmani Rowland Ranger DO RAD CT * MRSA SCREEN, PCR (09/29/2023 5:32 AM EDT) MRSA PCR Result Negative Negative 8:27 AM EDT LABORATORY [facility] Comment:No Methicillin resis tant Staphylococcus aureus detected by PCR (amplified probe). Upper Respiratory Swab of internal nose / Unknown Non-blood Collection / Unknown 09/29/2023 5:32 AM EDT 09/29/2023 6:10 AM EDT Luis Manuel Bennett PA-C LAB MICRO - GENE RAL ORDERABLES LABORATORY [facility] [address] [place] [address] * TEG (THROMBOELASTOGRAPH), HEPARINASE (09/29/2023 5:01 AM EDT) Reaction Time 4.2 2.5 - 8.3 minutes 09/29/2023 6:50 AM EDT LABORATORY [facility] Kinetics Time 1.8 0.5 - 3.7 minutes 09/29/2023 6:50 AM EDT LABORATORY [facility] Alpha Angle 66.2 46.8 - 78.4 degrees 09/29/2023 6:50 AM EDT LAB[facility]ATORY [facility] Maximum Amplitude 62.6 50.6 - 72.5 mm 09/29/2023 6:50 AM EDT LABORATORY [facility] Coagulation Index 1.5 -3.0 - 3.0 09/29/2023 6:50 AM EDT LABORATORY [facility] Percent Lysis 30 0.0 0.0 - 7.5 % 6:50 AM EDT LABORATORY C Comment:This is an appended report. These results have been appended to a previously preliminary verified report. Blood Venous blood specimen / Unknown Venipuncture / Unknown 09/29/2023 5:01 AM EDT 09/29/2023 5:37 AM EDT Luis Manuel Bennett PA-C LAB BLOOD ORDERA BLES Performing Organization Address City/State/[facility] Co de Phone Number LABORATORY [facility] [address] [place] [address] * TEG (THROMBOELASTOGRAPH) (09/29/2023 5:01 AM EDT) Reaction Time 4.2 2.5 - 8.3 minutes 09/29/2023 6:50 AM EDT LABORATORY [facility] Kinetics Time 1.7 0.5 - 3.7 minutes 09/29/2023 6:50 AM EDT LABORATORY [facility] Alpha Angle 67.7 46.8 - 78.4 degrees 09/29/2023 6:50 AM EDT LABORATORY [facility] Maximum Amplitude 61.3 50.6 - 72.5 mm 09/29/2023 6:50 AM EDT LABORATORY [facility] Coagulation Index 1.5 -3.0 - 3.0 09/29/2023 6:50 AM EDT LAB[facility]ATORY [facility] Percent Lysis 30 0.4 0.0 - 7.5 % 08/02/2 024 6:50 AM EDT LABORATORY [facility] Comment:This is an appended report. These results have been appended to a previously preliminary verified report. Blood Venous blood specimen / Unknown Venipuncture / Unknown 09/29/2023 5:01 AM EDT 09/29/2023 5:37 AM EDT Narrative LABORATORY [facility] - 09/29/2023 6:50 AM EDT If R time > 20 minutes and no clot formed suggesting hypocoagulable state or interfering substance (anticoagulation). Consider resubmitting a new sample and/or checking PT/INR, aPTT, fibrinogen, and platelet count. Luis Manuel Bennett PA-C LAB BLOOD ORDERA BLES Performing Organization Address [facility] de Phone Number LABORATORY [address] [address] * CALCIUM, IONIZED (09/29/2023 5:01 AM EDT) Calcium, Ionized 1.16 1.13 - 1.32 mmol/L 09/29/2023 6:01 AM EDT LABORATORY [facility] Comment:This test was develo ped and its performance characteristics dtermined by [employer]. It has not been cleared or approved by the [place] Food and Drug Administration Blood Venous blood specimen / Unknown Venipuncture / Unknown 09/29/2023 5:01 AM EDT 09/29/2023 5:37 AM EDT Luis Manuel Bennett PA-C LAB BLOOD ORDERA BLES Performing Organization Address [facility] de Phone Number LABORATORY [place] [address] [place] [address] * PHOSPHORUS (09/29/2023 5:01 AM EDT) Phosphorus 3.3 2.5 - 4.8 mg/dL 09/29/2023 6:42 AM EDT LABORATORY [facility] Blood Venous blood specimen / Unknown Venipuncture / Unknown 09/29/2023 5:01 AM EDT 09/29/2023 5:37 AM EDT Luis Manuel Bennett PA-C LAB BLOOD ORDERA BLES Performing Organization Address City/[facility]/ZIP Co de Phone Number LABORATORY [facility] [address] [place] [address] * MAGNESIUM (09/29/2023 5:01 AM EDT) Magnesium 1.9 1.5 - 2.6 mg/dL 09/29/2023 6:42 AM EDT LABORATORY [facility] Blood Venous blood specimen / Unknown Venipuncture / Unknown 09/29/2023 5:01 AM EDT 09/29/2023 5:37 AM EDT Luis Manuel Bennett PA-C LAB BLOOD ORDERA BLES Performing Organization Address [facility] Co de Phone Number LABORATORY [facility] [address] [place] [address] * (ABNORMAL) CBC (09/29/2023 5:01 AM EDT) Pathologist [facility] WBC 7.56 4.00 - 10.80 K/uL 09/29/2023 7:12 AM EDT LAB[facility]ATORY [facility] RBC 2.69 3.85 - 5.15 M/uL 09/29/2023 7:12 AM EDT LABORATORY [facility] HGB 8.1(L) 12.0 - 15.3 g/dL 09/29/2023 7:12 AM EDT LAB[facility]ATORY [facility] HCT 24.2(L) 36.0 - 45.2 % 09/29/2023 7:12 AM EDT LAB[facility]ATORY [facility] MCV 90.0 81.5 - 97.5 fL 09/29/2023 7:12 AM EDT LAB[facility]ATORY [facility] MCH 30.1 27.0 - 34.0 pg 09/29/2023 7:12 AM EDT LAB[facility]ATORY [facility] MCHC 33.5 32.0 - 36.0 g/dL 09/29/2023 7:12 AM EDT LABORATORY [facility] RDW 20.3 11.5 - 15.5 % 09/29/2023 7:12 AM EDT LABORATORY [facility] PLT 100(L) 140 - 400 K/uL 09/29/2023 7:12 AM EDT LABORATORY [facility] MPV 10.1 6.6 - 11.1 fL 09/29/2023 7:12 AM EDT LABORATORY C nRBCs 0 <=0 /100 WBCs 09/29/2023 7:12 AM EDT LAB[facility]ATORY [facility] Blood Venous blood specimen / Unknown Venipuncture / Unknown 09/29/2023 5:01 AM EDT 09/29/2023 5:37 AM EDT Luis Manuel Bennett PA-C LAB BLOOD ORDERA BLES Performing Organization Address [facility] de Phone Number LABORATORY [facility] [address] [place] [address] * (ABNORMAL) HEPATIC FUNCTION PANEL (09/29/2023 5:01 AM EDT) [facility] Albumin 2.9(L) 3.8 - 5.0 g/dL 09/29/2023 6:42 AM EDT LAB[facility]ATORY [facility] AST 26 10 - 35 U/L 09/29/2023 6:42 AM EDT LAB[facility]ATORY [facility] Alkaline Phosphatase 78 35 - 130 U/L 09/29/2023 6:42 AM EDT LAB[facility]ATORY [facility] ALT 27 10 - 35 U/L 09/29/2023 6:42 AM EDT LAB[facility]ATORY [facility] Bilirubin, Total 0.6 <=1.2 mg/dL 09/29/2023 6:42 AM EDT LAB[facility]ATORY [facility] Bilirubin, Direct 0.2 0.0 - 0.3 mg/dL 09/29/2023 6:42 AM EDT LAB[facility]ATORY [facility] Protein 4.5(L) 6.0 - 8.3 g/dL 09/29/2023 6:42 AM EDT LAB[facility]ATORY [facility] Blood Venous blood specimen / Unknown Venipuncture / Unknown 09/29/2023 5:01 AM EDT 09/29/2023 5:37 AM EDT Luis Manuel Bennett PA-C LAB BLOOD ORDERA BLES Performing Organization Address [facility] Co de Phone Number LABORATORY [facility] [address] [place] [address] * (ABNORMAL) BASIC METABOLIC PANEL (09/29/2023 5:01 AM EDT) BUN 16 6 - 20 mg/dL 09/29/2023 6:42 AM EDT LAB[facility]ATORY [facility] Creatinine 0.6 0.5 - 1.0 mg/dL 09/29/2023 6:42 AM EDT LABORATORY [facility] Estimated Glomerular Filtration Rate >90 >=60 mL/min 09/29/2023 6:42 AM EDT LABORATORY [facility] Comment:eGFR is calculated b ased on the CKD-EPI 2020 equation. Sodium 137 135 - 146 mmol/L 09/29/2023 6:42 AM EDT LABORATORY [facility] Potassium 3.8 3.5 - 5.1 mmol/L 09/29/2023 6:42 AM EDT LAB[facility]ATORY [facility] Chloride 107 98 - 107 mmol/L 09/29/2023 6:42 AM EDT LAB[facility]ATORY [facility] CO2 21(L) 22 - 32 mmol/L 09/29/2023 6:42 AM EDT LAB[facility]ATORY [facility] Anion Gap 9 7 - 15 mmol/L 09/29/2023 6:42 AM EDT LAB[facility]ATORY [facility] Glucose 106 70 - 120 mg/dL 09/29/2023 6:42 AM EDT LAB[facility]ATORY [facility] Calcium 7.9(L) 8.4 - 10.2 mg/dL 09/29/2023 6:42 AM EDT LAB[facility]ATORY [facility] Blood Venous blood specimen / Unknown Venipuncture / Unknown 09/29/2023 5:01 AM EDT 09/29/2023 5:37 AM EDT Luis Manuel Bennett PA-C LAB BLOOD ORDERA BLES LABORATORY [facility] [address] [place] [address] * FIBRINOGEN (09/29/2023 5:01 AM EDT) Fibrinogen 255 178 - 467 mg/dL 09/29/2023 5:50 AM EDT LABORATORY [facility] Blood Venous blood specimen / Unknown Venipuncture / Unknown 09/29/2023 5:01 AM EDT 09/29/2023 5:37 AM EDT Luis Manuel Bennett PA-C LAB BLOOD ORDERA BLES Performing Organization Address [facility]/ZIP Co de Phone Number [facility] [address] [place] [address] * APTT (09/29/2023 5:01 AM EDT) aPTT 26 21 - 38 seconds 09/29/2023 5:50 AM EDT [facility] Blood Venous blood specimen / Unknown Venipuncture / Unknown 09/29/2023 5:01 AM EDT 09/29/2023 5:37 AM EDT Narrative [facility] - 09/29/2023 5:50 AM EDT Anticoagulation may affect testing. Refer to [employer] Test Catalog for a list of effects. Luis Manuel Bennett PA-C LAB BLOOD ORDERA BLES Performing Organization Address [facility] Co de Phone Number [facility] [address] [place] [address] * PT INR (09/29/2023 5:01 AM EDT) Prothrombin Time 14.4 11.6 - 15.2 seconds 09/29/2023 5:49 AM EDT [facility] INR 1.1 0.8 - 1.2 09/29/2023 5:49 AM EDT [facility] Blood Venous blood specimen / Unknown Venipuncture / Unknown 09/29/2023 5:01 AM EDT 09/29/2023 5:37 AM EDT Narrative LABORATORY C - 09/29/2023 5:49 AM EDT Warfarin Therapy INR: 2.0-3.0 conventional anticoagulation INR: 2.5-3.5 high intensity anticoagulation Luis Manuel Bennett PA-C LAB BLOOD ORDERA BLES Performing Organization Address [facility]/ZIP Co de Phone Number [facility] [address] [place] [address] * RED BLOOD CELL ANTIBODY IDENTIFICATION INTERPRETATION (09/29/2023 5:00 AM EDT) [facility] Red Cell Antibody Identification Interpretation Findings: Anti-Jk(a) Interpretation: The patient is a 78 year old female with ABO/RH type of O positive. 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 Antibody to Jk(a)-antigen can result from alloimmunization from transfusion or . These findings place the patient at risk for hemolytic transfusion reaction. Crossmatch compatible Jk(a)-antigen-nega tive RBCs should be given if transfusion is necessary, approximately 10% of blood donors will be compatible. 10/03/2023 8:47 PM EDT [facility] Blood Venous blood specimen / Unknown Venipuncture / Unknown 09/29/2023 5:00 AM EDT 09/29/2023 5:37 AM EDT Diamond Ferris MD LAB BLOOD BANK TEST ORDERABLES Performing Organization Address City/[facility] Co de Phone Number [facility] [address] [place] [address] * RED BLOOD CELL ANTIBODY IDENTIFICATION (09/29/2023 5:00 AM EDT) [facility] Red Blood Cell Antibody Identification Anti-Jka 09/29/2023 8:23 AM EDT [facility] BLOOD BANK Blood Venous blood specimen / Unknown Venipuncture / Unknown 09/29/2023 5:00 AM EDT 09/29/2023 5:37 AM EDT Luis Manuel Bennett PA-C LAB BLOOD BANK T EST ORDERABLES [facility] BLOOD B[facility] [address] [place] [address] * LACTATE (09/29/2023 5:00 AM EDT) [facility] Lactate 1.0 0.4 - 2.0 mmol/L 09/29/2023 6:34 AM EDT [facility] Blood Venous blood specimen / Unknown Venipuncture / Unknown 09/29/2023 5:00 AM EDT 09/29/2023 5:37 AM EDT Luis Manuel Bennett PA-C LAB BLOOD ORDERA BLES Performing Organization Address City/[facility]/ZIP Co de Phone Number [facility] [address] [place] [address] * TYPE AND SCREEN (09/29/2023 5:00 AM EDT) ABO O 09/29/2023 6:32 AM EDT [facility] BLOOD BANK Rh Positive 09/29/2023 6:32 AM EDT [facility] BLOOD BANK Red Blood Cell Antibody Screen Positive 09/29/2023 6:32 AM EDT [facility] BLOOD B[facility] Comment: Antibodies may delay blood availability If RBC use is anticipated, place a prepare order Specimen Expiration Date 10/02/2023 23:59 09/29/2023 6:32 AM EDT [facility] BLOOD BANK Blood Venous blood specimen / Unknown Venipuncture / Unknown 09/29/2023 5:00 AM EDT 09/29/2023 5:37 AM EDT Luis Manuel Bennett PA-C LAB BLOOD BANK T EST ORDERABLES Performing Organization Address [facility] Co de Phone Number [facility] BLOOD BANK [address] [place] [address] documented in this encounter Visit Diagnoses Diagnosis Gastrointestinal hemorrhage associated with duodenal ulcer- Primary Bleeding ulcer Chronic or unspecified peptic ulcer, unspecified site, with hemorrhage, without mention of obstruction Chest pain Chest pain, unspecified Encounter for attention to other artificial openings of digestive tract (HCC) Pleural effusion, not elsewhere classified Abnormal findings on diagnostic imaging of other abdominal regions, including retroperitoneum Encounter for fitting and adjustment of other gastrointestinal appliance and device Acute blood loss anemia Acute posthemorrhagic anemia On peripheral parenteral nutrition (ppn) Other specified conditions influencing health status Obstruction of duodenum Other obstruction of duodenum Duodenal perforation (HCC) Other specified disorder of stomach and duodenum Closed displaced fracture of posterior wall of right acetabulum (HCC) Closed fracture of acetabulum On peripheral parenteral nutrition (ppn) Other specified conditions influencing health status documented in this encounter Administered Medications Inactive Administered Medications - up to 3 most recent administrations Medication Order MAR Action Action Date Dose Rate Site Acetaminophen (Ofirmev) inj 1,000 mg 1,000 mg, Intravenous, ONCE, 1 dose, On Mon09/29/23 at 1330, Administer over 15 Minutes, Administer undiluted over 15 minutes! NOTE: Maximum of 4000 mg per 24 hours of acetaminophen from all acetaminophen containing products., Indication: Patient is on continuous NG suction New Bag 09/29/2023 2:40 PM EDT 1,000 mg 400 mL/hr Acetaminophen (Ofirmev) inj 500 mg 500 mg, Intravenous, Q6H PRN, Starting on 09/30/23 at 1117, Until 10/01/23 at 1116, Administer over 15 Minutes, Administer undiluted over 15 minutes! NOTE: Maximum of 4000 mg per 24 hours of acetaminophen from all acetaminophen containing products., Indication: Patient is on continuous NG suction New Bag 10/01/2023 9:47 AM EDT 500 mg 200 mL/hr New Bag 10/01/2023 12:05 AM EDT 500 mg 200 mL/hr New Bag 09/30/2023 1:32 PM EDT 500 mg 200 mL/hr Acetaminophen (Ofirmev) inj 500 mg 500 mg, Intravenous, Q6H PRN, Starting on 10/01/23 at 1508, Until 10/02/23 at 1507, Administer over 15 Minutes, Administer undiluted over 15 minutes! NOTE: Maximum of 4000 mg per 24 hours of acetaminophen from all acetaminophen containing products., Indication: Patient is on continuous NG suction Restarted 10/02/2023 10:32 AM EDT 500 mg/hr 50 mL/hr New Bag 10/02/2023 9:20 AM EDT 500 mg 200 mL/hr New Bag 10/02/2023 12:07 AM EDT 500 mg 200 mL/hr Acetaminophen (Ofirmev) inj 500 mg 500 mg, Intravenous, Q6H PRN, Starting on Tu10/03/23 at 1113, Until Mon10/04/23 at 1022, Administer over 15 Minutes, Administer undiluted over 15 minutes! NOTE: Maximum of 4000 mg per 24 hours of acetaminophen from all acetaminophen containing products., Indication: Patient is strictly NPO New Bag 10/03/2023 11:41 PM EDT 500 mg 200 mL/hr New Bag 10/03/2023 12:16 PM EDT 500 mg 200 mL/hr Acetaminophen (Tylenol) tab 650 mg 650 mg, Oral, Q6H PRN Pain, Mild, Pain, Moderate, Starting on Mon10/04/23 at 2329, Until Mon10/05/23 at 1708, Maximum of 4 grams (4000 mg) per day. Given 10/05/2023 8:10 AM EDT 650 mg Given 10/04/2023 11:44 PM EDT 650 mg Adult PPN Peripheral 1,500 mL, Intravenous, [id number], Starting on Mon10/02/23 at 1800, Until Mon10/03/23 at 1759, For 24 hours, Infuse using a 1.2 micron in-line filter Rate Verify 10/03/2023 3:42 PM EDT 63 mL/hr Restarted 10/03/2023 1:14 PM EDT 63 mL/hr Restarted 10/03/2023 9:14 AM EDT 63 mL/hr Adult PPN Peripheral 1,500 mL, Intravenous, [id number], Starting on Mon10/03/23 at 1800, Until Mon10/04/23 at 1021, For 24 hours, Infuse using a 1.2 micron in-line filter Restarted 10/04/2023 9:48 AM EDT 63 mL/hr Rate Verify 10/04/2023 6:21 AM EDT 63 mL/hr Rate Verify 10/04/2023 4:38 AM EDT 63 mL/hr aspirin chew tab 81 mg 81 mg, Oral, Daily(AM), First dose on Mon10/04/23 at 0900, Until Discontinued, With food. Given 10/05/2023 8: 10 AM EDT 81 mg Given 10/04/2023 8:05 AM EDT 81 mg atorvaSTATin (Lipitor) tab 40 mg 40 mg, Oral, Q1700, First dose (after last reorder) on Mon10/04/23 at 1700, Until Discontinued Given 10/04/2023 5:00 PM EDT 40 mg calcium GLUConate 1000 mg in 50ml ivpb 1,000 mg, IV Piggyback, ONCE, 1 dose, On 09/30/23 at 0745 Rate Verify 09/30/2023 9:00 AM EDT 100 mL/hr New Bag 09/30/2023 8:51 AM EDT 1,000 mg 100 mL/hr calcium GLUConate 1000 mg in 50ml ivpb 1,000 mg, IV Piggyback, ONCE, 1 dose, On Mon10/02/23 at 0900 New Bag 10/02/2023 12:26 PM EDT 1,000 mg 10 0 mL/hr calcium GLUConate 2000 mg in 100ml ivpb 2,000 mg, IV Piggyback, ONCE, 1 dose, On Mon09/29/23 at 0745 New Bag 09/29/2023 8:33 AM EDT 2,000 mg 200 mL/hr cefTRIAXone in dextrose (Rocephin) IVPB 1 g IV Piggyback, 1 g, Q24H, First dose on Mon09/29/23 at 1000, Until Discontinued, Administer over 30 Minutes New Bag 10/03/2023 8:49 AM EDT 1 g 100 mL/hr Rate Verify 10/02/2023 11:20 AM EDT 2 g/hr 100 mL/hr New Bag 10/02/2023 10:58 AM EDT 1 g 100 mL/hr chlorHEXIDINE (Periogard) 0.12 % oral rinse 15 mL 15 mL, Oral mucosal membrane, BID (799,1999), First dose on Mon09/29/23 at 0800, Until Discontinued, Include oral/gum/tooth brushing with medication. Use prepackaged oral kit suction tooth brush if available. Given 10/05/2023 8:10 AM EDT 15 mL Given 10/04/2023 8:50 PM EDT 15 mL Given 10/04/2023 8:06 AM EDT 15 mL HYDROmorphone (Dilaudid) inj 0.1 mg 0.1 mg, IV Push, Q4H PRN Pain, Severe, Starting on Mon09/29/23 at 0556, Until 10/01/23 at 1357 Given 09/30/2023 12:24 AM EDT 0.1 mg Given 09/29/2023 7:00 AM EDT 0.1 mg Iohexol (Omnipaque 240) inj 150 mL 150 mL, Oral, ONCE, On Mon10/03/23 at 1000, For 1 dose, Radiology Medication Routing (Non-IR) Given 10/03/2023 9:55 AM EDT 150 mL Iopamidol (Isovue 370) inj 80 mL 80 mL, Intravenous, ONCE, On Mon09/29/23 at 0715, For 1 dose, Radiology Medication Routing (Non-IR) Given 09/29/2023 7:15 AM EDT 75 mL isolyte-S pH 7.4 infusion Intravenous, at 50 mL/hr, Plasma-LYTE 148, isolyte-S, and isolyte-S pH 7.4 are considered equivalent - including for MAR barcode scanning., CONTINUOUS, Starting on Mon09/29/23 at 0500, Until Mon10/01/23 at 1506 Rate Verify 10/01/2023 1:48 PM EDT 50 mL/ hr Rate Verify 10/01/2023 7:00 AM EDT 50 mL/hr Rate Verify 10/01/2023 6:00 AM EDT 50 mL/hr isolyte-S pH 7.4 infusion Intravenous, at 50 mL/hr, Plasma-LYTE 148, isolyte-S, and isolyte-S pH 7.4 are considered equivalent - including for MAR barcode scanning., CONTINUOUS, Starting on Mon10/01/23 at 1545, Until Mon10/02/23 at 1614 Rate Verify 10/02/2023 6:58 PM EDT 50 mL/hr New Bag 10/02/2023 2:38 PM EDT 50 mL/hr KVO 10/02/2023 2:04 PM EDT 5 mL/hr levothyroxine (Levoxyl) tab 75 mcg 75 mcg, Oral, [id number], First dose (after last reorder) on Mon10/05/23 at 0630, Until Discontinued Given 10/05/2023 5:42 AM EDT 75 mcg levothyroxine sodium (20 mcg/ml) inj dilution 60 mcg 60 mcg, IV Push, [id number], First dose on Mon10/03/23 at 0945, Until Discontinued Given 10/04/2023 5:31 AM EDT 60 mc g Given 10/03/2023 10:55 AM EDT 60 mcg magnesium sulfate 1 g in d5w 100mL LOCKED DOSE 1 g, IV Piggyback, ONCE, 1 dose, On Mon10/04/23 at 0730, Administer over 60 Minutes New Bag 10/04/2023 8:21 AM EDT 1 g 100 mL/hr metroNIDAZOLE in NSS (Flagyl) ivpb 500 mg 500 mg, IV Piggyback, Q8H, First dose on Mon09/29/23 at 1000, Last dose on Mon10/06/23 at 0600, For 7 days New Bag 10/04/2023 5:35 AM EDT 500 mg 100 mL/hr New Bag 10/03/2023 10:28 PM EDT 500 mg 100 mL/hr Restarted 10/03/2023 2:47 PM EDT 500 mg/hr 100 mL/hr omeprazole (PriLOSEC) cap 40 mg 40 mg, Oral, BID (.AM/PM), First dose on Mon10/04/23 at 2100, Until Discontinued, This med should NOT be Crushed or Chewed Given 10/05/2023 8:10 AM EDT 40 mg Given 10/04/2023 8:50 PM EDT 40 mg Oral Hygiene: Mouth Swab with dentifrice Oral, Q4H LIMITED (00;04;12;16), First dose on Mon09/29/23 at 1200, Until Discontinued, To be used with 1.5% hydrogen peroxide solution or 0.05% cetylpyridium chloride oral rinse Given 10/04/2023 12:00 AM EDT Given 10/03/2023 4:00 PM EDT Given 10/03/2023 12:00 PM EDT Pantoprazole (Protonix) 80 mg in NSS 500 mL INFUSION Intravenous, at 50 mL/hr, CONTINUOUS, Starting on Mon09/29/23 at 0500, Until Mon10/01/23 at 1506 Rate Verify 10/01/2023 3:17 PM EDT 8 mg/hr 50 mL/hr Rate Verify 10/01/2023 1:48 PM EDT 8 mg/hr 50 mL/hr New Bag 10/01/2023 8:10 AM EDT 8 mg/hr 50 mL/hr Pantoprazole (Protonix) 80 mg in NSS 500 mL INFUSION Intravenous, at 50 mL/hr, CONTINUOUS, Starting on Mon10/01/23 at 1545, Until 10/02/23 at 1444 New Bag 10/02/2023 2:14 PM EDT 8 mg/hr 50 mL/hr Restarted 10/02/2023 2:13 PM EDT 8 mg/hr 50 mL/hr KVO 10/02/2023 1:53 PM EDT 0.8 mg/hr 5 mL/hr Pantoprazole (Protonix) inj 40 mg 40 mg, IV Push, Q12H, First dose on Mon10/02/23 at 2100, Until Discontinued, IV push instructions: Flush I.V. Line before and after administration. In-line filter not required. 2-minute infusion: The volume of reconstituted solution (4mg/ml) to be injected may be administered intravenously over at least 2 minutes. ( Dilute each vial with 10 ml of 0.9% saline PF) Given 10/04/2023 8:05 AM EDT 40 mg Given 10/03/2023 10:03 PM EDT 40 mg Given 10/03/2023 8:04 AM EDT 40 mg potassium chloride 10 mEq in 100 mL ivpb LOCKED DOSE 10 mEq, Peripheral IV, Q1H, 3 doses, First dose on 09/30/23 at 0700, Last dose on Mon09/30/23 at 0900, Administer over 60 Minutes, Standard infusion duration is 60 minutes. New Bag 09/30/2023 10:19 AM EDT 10 mEq 100 mL/hr Rate Verify 09/30/2023 9:00 AM EDT 10 mEq/hr 100 mL/hr Rate Verify 09/30/2023 9:00 AM EDT 10 mEq/hr 100 mL/hr potassium chloride 10 mEq in 100 mL ivpb LOCKED DOSE 10 mEq, Peripheral IV, Q1H, 3 doses, First dose (after last reorder) on Mon10/01/23 at 0700, Last dose on Mon10/01/23 at 0900, Administer over 60 Minutes, Standard infusion duration is 60 minutes. New Bag 10/01/2023 10:41 AM EDT 10 mEq 100 mL/hr New Bag 10/01/2023 9:24 AM EDT 10 mEq 100 mL/hr New Bag 10/01/2023 8:04 AM EDT 10 mEq 100 mL/hr potassium chloride 10 mEq in 100 mL ivpb LOCKED DOSE 10 mEq, Peripheral IV, Q1H, 4 doses, First dose (after last reorder) on Mon10/02/23 at 1200, Last dose on Mon10/02/23 at 1500, Administer over 60 Minutes, Standard infusion duration is 60 minutes. New Bag 10/02/2023 4:06 PM EDT 10 mEq 100 mL/hr New Bag 10/02/2023 1:26 PM EDT 10 mEq 100 mL/hr potassium chloride 10 mEq in 100 mL ivpb LOCKED DOSE 10 mEq, Peripheral IV, Q1H, 3 doses, First dose on Mon10/03/23 at 0900, Last dose on Mon10/03/23 at 1100, Administer over 60 Minutes, Standard infusion duration is 60 minutes. New Bag 10/03/2023 11:26 AM EDT 10 mEq 100 mL/hr Restarted 10/03/2023 10:58 AM EDT 10 mEq/hr 100 mL/hr Rate Verify 10/03/2023 8:56 AM EDT 10 mEq/hr 100 mL/hr potassium chloride ER tab 30 mEq 30 mEq, Oral, ONCE, On Mon10/04/23 at 2200, For 1 dose, This med should NOT be Crushed or Chewed Given 10/04/2023 10:29 PM EDT 30 mEq potassium phosphate 30 mmol in NSS 250 mL (K phos) ivpb 30 mmol, Peripheral IV, ONCE, 1 dose, On Mon10/03/23 at 0845 Rate Verify 10/03/2023 3:42 PM EDT 6 mmol/hr 53 mL/hr New Bag 10/03/2023 3:04 PM EDT 30 mmol 53 mL/hr sodium chloride 0.9 % flush peripheral catracho 3 mL 3 mL, IV Push, Q8H, First dose on Mon09/29/23 at 0600, Until Discontinued, Do not flush if lock, PICC, or central line not in place; IV infusing or unable to flush. Given 10/05/2023 6:00 AM EDT 3 mL Given 10/04/2023 10:00 PM EDT 3 mL Given 10/04/2023 2:00 PM EDT 3 mL documented in this encounter Active and Recently Administered Medications Times are shown in EDT. Scheduled Medication Order 10/03/2023 10/04/2023 10/05/2023 aspirin chew tab 81 mg 81 mg, Oral, Daily(AM), First dose on Mon10/04/23 at 0900, Until Discontinued, With food. 0805 (Given - Provider: Kaylin Dockery RN) 0810 (Given - Provider: Bhumi Prasad RN) atorvaSTATin (Lipitor) tab 40 mg 40 mg, Oral, Q1700, First dose (after last reorder) on Mon10/04/23 at 1700, Until Discontinued 1700 (Given - Provider: Bhumi Prasad RN) cefTRIAXone in dextrose (Rocephin) IVPB 1 g (CANCELED) IV Piggyback, 1 g, Q24H, First dose on Mon09/29/23 at 1000, Until Discontinued, Administer over 30 Minutes 0849 (New Bag - Provider: Lambert Maria LPN) 1000 (Not Given - Provider: Bhumi Prasad RN - Reason: Order Discontinued)1017 (Stopped - Provider: Bhumi Prasad RN) chlorHEXIDINE (Periogard) 0.12 % oral rinse 15 mL 15 mL, Oral mucosal membrane, BID (799,1999), First dose on Mon09/29/23 at 0800, Until Discontinued, Include oral/gum/tooth brushing with medication. Use prepackaged oral kit suction tooth brush if available. 0805 (Given - Provider: Tiffany De Souza RN)2203 (Given - Provider: Marian Greene RN) 0806 (Given - Provider: Kaylin Dockery RN)2050 (Given - Provider: Ludy Yusuf LPN) 0810 (Given - Provider: Bhumi Prasad RN) Iohexol (Omnipaque 240) inj 150 mL (COMPLETED) 150 mL, Oral, ONCE, On Mon10/03/23 at 1000, For 1 dose, Radiology Medication Routing (Non-IR) 0955 (Given - Provider: Kathleen Iraheta, RT) levothyroxine (Levoxyl) tab 75 mcg 75 mcg, Oral, [id number], First dose (after last reorder) on Mon10/05/23 at 0630, Until Discontinued 0542 (Given - Provider: Ludy Yusuf LPN) levothyroxine sodium (20 mcg/ml) inj dilution 60 mcg (CANCELED) 60 mcg, IV Push, [id number], First dose on Mon10/03/23 at 0945, Until Discontinued 1055 (Given - Provider: Tiffany De Souza RN) 0531 (Given - Provider: Iraida Palma RN) magnesium sulfate 1 g in d5w 100mL LOCKED DOSE (COMPLETED) 1 g, IV Piggyback, ONCE, 1 dose, On Mon10/04/23 at 0730, Administer over 60 Minutes 0821 (New Bag - Provider: Kaylin Dockery RN)0921 (Stopped - Provider: Bhumi Prasad RN) metroNIDAZOLE in NSS (Flagyl) ivpb 500 mg (CANCELED) 500 mg, IV Piggyback, Q8H, First dose on Mon09/29/23 at 1000, Last dose on Mon10/06/23 at 0600, For 7 days 0511 (New Bag - Provider: Vladimir Rivers RN)1334 (New Bag - Provider: Lambert Maria LPN)1338 (Rate Verify - Provider: Lambert Maria LPN)1438 (Paused - Provider: Lambert Maria LPN)1447 (Restarted - Provider: Lambert Maria LPN)1450 (Stopped - Provider: Lambert Maria LPN)2228 (New Bag - Provider: Marian Greene RN) 0535 (New Bag - Provider: Iraida Palma RN)1017 (Stopped - Provider: Bhumi Prasad RN) omeprazole (PriLOSEC) cap 40 mg 40 mg, Oral, BID (.AM/PM), First dose on Mon10/04/23 at 2100, Until Discontinued, This med should NOT be Crushed or Chewed 0 (Given - Provider: Ludy Yusuf LPN) 0810 (Given - Provider: Bhumi Prasad RN) Oral Hygiene: Mouth Swab with dentifrice Oral, Q4H LIMITED (00;04;12;16), First dose on Mon09/29/23 at 1200, Until Discontinued, To be used with 1.5% hydrogen peroxide solution or 0.05% cetylpyridium chloride oral rinse 0000 (Not Given - Provider: Vladimir Rivers RN - Reason: Parameter(s) Not Met)0400 (Not Given - Provider: Vladimir Rivers RN - Reason: Parameter(s) Not Met)1200 (Given - Provider: Lambert Maria LPN)1600 (Given - Provider: Lambert Maria LPN) 0000 (Given - Provider: Iraida Palma RN)0400 (Not Given - Provider: Iraida Palma RN - Reason: Parameter(s) Not Met)1200 (Not Given - Provider: Bhumi Prasad RN - Reason: Parameter(s) Not Met)1600 (Not Given - Provider: Bhumi Prasad RN - Reason: Parameter(s) Not Met) 0000 (Not Given - Provider: Ludy Yusuf LPN - Reason: Parameter(s) Not Met - Comment: icu protocol)0400 (Not Given - Provider: Ludy Yusuf LPN - Reason: Parameter(s) Not Met - Comment: icu protocol)1200 (Not Given - Provider: Bhumi Prasad RN - Reason: Parameter(s) Not Met) Pantoprazole (Protonix) inj 40 mg (CANCELED) 40 mg, IV Push, Q12H, First dose on Mon10/02/23 at 2100, Until Discontinued, IV push instructions: Flush I.V. Line before and after administration. In-line filter not required. 2-minute infusion: The volume of reconstituted solution (4mg/ml) to be injected may be administered intravenously over at least 2 minutes. ( Dilute each vial with 10 ml of 0.9% saline PF) 0804 (Given - Provider: Tiffany De Souza RN)2203 (Given - Provider: Marian Greene RN) 0805 (Given - Provider: Kaylin Dockery RN) potassium chloride 10 mEq in 100 mL ivpb LOCKED DOSE () 10 mEq, Peripheral IV, Q1H, 3 doses, First dose on Mon10/03/23 at 0900, Last dose on Mon10/03/23 at 1100, Administer over 60 Minutes, Standard infusion duration is 60 minutes. 0853 (New Bag - Provider: Lambert Maria LPN)0856 (Rate Verify - Provider: Lambert Maria LPN)1001 (Paused - Provider: Lambert Maria LPN)1058 (Restarted - Provider: Lambert Maria LPN)1100 (Not Given - Provider: Tiffany De Souza RN - Reason: Order Discontinued)1126 (New Bag - Provider: Lambert Maria LPN)1226 (Stopped - Provider: Lambert Maria LPN) potassium chloride ER tab 30 mEq (COMPLETED) 30 mEq, Oral, ONCE, On Mon10/04/23 at 2200, For 1 dose, This med should NOT be Crushed or Chewed 2229 (Given - Provider: Ludy Yusuf LPN) potassium phosphate 30 mmol in NSS 250 mL (K phos) ivpb (COMPLETED) 30 mmol, Peripheral IV, ONCE, 1 dose, On Mon10/03/23 at 0845 1504 (New Bag - Provider: Lambert Maria LPN)1542 (Rate Verify - Provider: Lambert Maria LPN) sodium chloride 0.9 % flush peripheral catracho 3 mL 3 mL, IV Push, Q8H, First dose on Mon09/29/23 at 0600, Until Discontinued, Do not flush if lock, PICC, or central line not in place; IV infusing or unable to flush. 0600 (Not Given - Provider: Vladimir Rivers RN - Reason: Parameter(s) Not Met)1400 (Given - Provider: Lambert Maria LPN)2204 (Given - Provider: Marian Greene RN) 0600 (Given - Provider: Iraida Palma, LEONIE)1400 (Given - Provider: Bhumi Prasad, LEONIE)2200 (Given - Provider: Ludy Yusuf LPN) 0600 (Given - Provider: Ludy Yusuf LPN) Continuous Medication Order 10/03/2023 10/04/2023 10/05/2023 Adult PPN Peripheral () 1,500 mL, Intravenous, [id number], Starting on Mon10/02/23 at 1800, Until Mon10/03/23 at 1759, For 24 hours, Infuse using a 1.2 micron in-line filter 0910 (Paused - Provider: Lambert Maria LPN)0914 (Restarted - Provider: Lambert Maria LPN)1311 (Paused - Provider: Lambert Maria LPN)1314 (Restarted - Provider: Lambert Maria LPN)1542 (Rate Verify - Provider: Lambert Maria LPN) Adult PPN Peripheral (CANCELED) 1,500 mL, Intravenous, [id number], Starting on Mon10/03/23 at 1800, Until Mon10/04/23 at 1021, For 24 hours, Infuse using a 1.2 micron in-line filter 1750 (New Bag - Provider: Tiffany De Souza RN)192 (Paused - Provider: Marian Greene RN)194 (Restarted - Provider: Marian Greene RN)2031 (Rate Verify - Provider: Marian Greene RN) 0046 (Rate Verify - Provider: Iraida Palma RN)0438 (Rate Verify - Provider: Iraida Palma RN)0621 (Rate Verify - Provider: Iraida Palma RN)0931 (Paused - Provider: Bhumi Prasad RN)0948 (Restarted - Provider: Bhumi Prasad RN)1021 (Stopped - Provider: Bhumi Prasad RN) PRN Medication Order 10/03/2023 10/04/2023 10/05/2023 Acetaminophen (Ofirmev) inj 500 mg (CANCELED) 500 mg, Intravenous, Q6H PRN, Starting on Mon10/03/23 at 1113, Until Mon10/04/23 at 1022, Administer over 15 Minutes, Administer undiluted over 15 minutes! NOTE: Maximum of 4000 mg per 24 hours of acetaminophen from all acetaminophen containing products., Indication: Patient is strictly NPO 1216 (New Bag - Provider: Lambert Maria LPN)2341 (New Bag - Provider: Iraida Palma RN) 1022 (Stopped - Provider: Bhumi Prasad RN - Comment: this medication has been stopped since before my shift.) Acetaminophen (Tylenol) tab 650 mg 650 mg, Oral, Q6H PRN Pain, Mild, Pain, Moderate, Starting on Mon10/04/23 at 2329, Until Angeli 10/05/23 at 1708, Maximum of 4 grams (4000 mg) per day. 2344 (Given - Provider: Ludy Yusuf LPN) 0810 (Given - Provider: Bhumi Prasad RN) documented in this encounter Advance Directives * Full Code (Latest Code Status on File) Date Activated Date Inactivated Comments 09/29/2023 4:55 AM 10/05/2023 5:13 PM This order ref lects the patients wishes and were consensually agreed upon. Question Answer Comments Discussion of Advance Directives occurred with: Patient * Full Code Date Activated Date Inactivated Comments 09/29/2023 4:19 AM 09/29/2023 4:54 AM This order ref lects the patients wishes and were consensually agreed upon. Question Answer Comments Discussion of Advance Direct edgar occurred with: Not Discussed due to patient's condition * Full Code Date Activated Date Inactivated Comments 09/05/2023 3:03 AM 09/10/2023 3:03 PM This order re flects the patients wishes and were consensually agreed upon. Does not want trach / peg. Question Answer Comments Discussion of Advance Directives occurred with: Patient Healthcare Agents on File Name Relationship [facility] Erika Brandt Adult Child Health Care Agen t (per Health Care Power of Police Investigator document) Care Teams Nurse'S Aides Teacher Relationship Specialty Start Date End Date Shannan Arias MD [address] [place] [address] PCP - General Internal Medicine 05/03/18 documented as of this encounter
--- OUTSIDE RECORDS SUMMARY | 2023-10-11 05:31 | External Medical Summary ---
Author Name Unknown Address Unknown Organization K01:LABORATORY [facility] [place] - [address] [place] [address] Laboratory Report Ordering Provider Test Date Status CHU ORTEGA 10/05/2023 06:40:00 Final Observation Date Value Abnormality Reference (Units ) Status Albumin 10/05/2023 06:40:00 3.1 Below low normal 3.8-5.0 (g/dL) Final AST (Aspartate aminotransferase) 10/05/2023 06:40:00 18 10-35 (U/L) Final Alk Phos 10/05/2023 06:40:00 85 35-130 (U/L) Final ALT (Alanine aminotransferase) 10/05/2023 06:40:00 10 10-35 (U/L) Final Bilirubin, Total 10/05/2023 06:40:00 0.4 <=1.2 (mg/dL) Final Bilirubin, Direct 10/05/2023 06:40:00 <0.2 0.0-0.3 (mg/dL) Final Protein 10/05/2023 06:40:00 5.0 Below low normal 6.0-8.3 (g/dL) Final Performing Location LABORATORY [facility] [place] - [address] [place] [address]
--- OUTSIDE RECORDS SUMMARY | 2023-10-11 05:31 | External Medical Summary ---
Author Name Unknown Address Unknown Organization K01:LABORATORY [facility] [place] - [address] [place] [address] Laboratory Report Ordering Provider Test Date Status LETHA SOTO 10/04/2023 19:48:00 Final Observation Date Value Abnormality Reference (Units ) Status WBC, Total 10/04/2023 19:48:00 6.15 4.00-10.80 (K/uL) Final RBC 10/04/2023 19:48:00 2.92 3.85-5.15 (M/uL) Final Hemoglobin 10/04/2023 19:48:00 9.0 Below low normal 12.0-15.3 (g/dL) Final HCT 10/04/2023 19:48:00 27.9 Below low normal 36.0-45.2 (%) Final MCV 10/04/2023 19:48:00 95.5 81.5-97.5 (fL) Final MCH 10/04/2023 19:48:00 30.8 27.0-34.0 (pg) Final MCHC 10/04/2023 19:48:00 32.3 32.0-36.0 (g/dL) Final RDW 10/04/2023 19:48:00 22.0 11.5-15.5 (%) Final Platelets 10/04/2023 19:48:00 140 140-400 (K/uL) Final MPV 10/04/2023 19:48:00 10.8 6.6-11.1 (fL) Final Nucleated erythrocytes/100 leukocytes [Ratio] in Blood by Automated count 10/04/2023 19:48:00 0 <=0 (/100 WBCs) Final Performing Location LABORATORY [facility] [place] - [address] [place] [address]
--- OUTSIDE RECORDS SUMMARY | 2023-10-11 05:31 | External Medical Summary ---
Author Name Unknown Address Unknown Organization K01:LABORATORY [facility] - [address] [place] [address] Laboratory Report Ordering Provider Test Date Status KATHARINA GAITAN 10/04/2023 08:09:00 Final Observation Date Value Abnormality Reference (Units ) Status Magnesium 10/04/2023 08:09:00 2.0 1.5-2.6 (m g/dL) Final Performing Location LABORATORY [facility] - [address] [place] [address]
--- OUTSIDE RECORDS SUMMARY | 2023-10-11 05:31 | External Medical Summary ---
Author Name Unknown Address Unknown Organization K01:[place]ORY [facility] [place] [address] [place] [address] Laboratory Report Ordering Provider Test Date Status JOSUE JINCAROL ANN 10/05/2023 07:52:00 Final Observation Date Value Abnormality Reference (Units ) Status BUN 10/05/2023 07:52:00 11 6-20 (mg/dL) Final Creatinine 10/05/2023 07:52:00 0.6 0.5-1.0 (mg/dL) Final Glomerular filtration rate/1.73 sq M.predicted [Volume Rate/Area] in Serum, Plasma or Blood by Creatinine-based formula (CKD-EPI) 10/05/2023 07:52:00 >90 >=60 (mL/min) Final eGFR is calculated based on the CKD-EPI 2020 equation. Sodium 10/05/2023 07:52:00 139 135-146 (m mol/L) Final Potassium 10/05/2023 07:52:00 4.3 3.5-5.1 (m mol/L) Final Cl 10/05/2023 07:52:00 106 98-107 (mm ol/L) Final CO2 10/05/2023 07:52:00 22 22-32 (mmo l/L) Final Anion gap 10/05/2023 07:52:00 11 7-15 (mmol /L) Final Glucose 10/05/2023 07:52:00 108 70-120 (mg /dL) Final Calcium 10/05/2023 07:52:00 8.4 8.4-10.2 ( mg/dL) Final Performing Location LABORATORY [facility] [place] - [address] [place] [address]
--- OUTSIDE RECORDS SUMMARY | 2023-10-11 05:31 | External Medical Summary | Summary of Care ---
Author Name Unknown Organization [facility] Address [address] [place] [address] Phone [phone] Care Team Providers Care Compliance Engineer Name Role Phone Yamini Piper MD Primary Care Provider [phone] Reason for Visit * Reason Onset Date Comments Hospital Follow-Up 10/05/2023 [facility] 1 wk pcp f/u needed with labs. No appt avail. Please assist with patient scheduling. Thank you. Encounter Details Date Type Department Care Team (Late st Contact Info) Description 10/05/2023 Telephone General Internal Medicine [facility] [place] [address] [facility] [place] [id number] Yamini Piper MD [address] [place] [address] Hospital Follow-Up ([facility] 10/05/23 1 wk p... Allergies Active Allergy Reactions Criticality Noted Date Comments Pollen 06/17/2014 Nasal congestion documented as of this encounter (statuses as of 10/05/2023) Medications Medication Sig Dispensed Refills Start Date End Date Status [facility] CALCIUM+D3 SLOW RELEASE 600-40-500 MG-MG-UNIT PO TB24 Take 1 Tab by mouth daily at noon. 05/16/2013 Suspended ASPIRIN 81 MG PO CHEW One pill by mouth once a day with food 100 Tab 5 08/22/2013 Suspended Levothyroxine Sodium 75 MCG Oral Tablet (Levoxyl)Indication s:Acquired hypothyroidism TAKE 1 TABLET DAILY AT LEAST 30 MINUTES PRIOR TO BREAKFAST OR OTHER MEDS 90 Tablet 3 01/13/2023 Suspended Additional Information Atorvastatin Calcium 40 MG Oral Tablet (Lipitor)Indication s:Hyperlipidemia with target LDL less than 100 TAKE 1 TABLET IN THE MORNING. 90 Tablet 3 06/20/2023 Suspended Additional Information Sennosides 8.6 MG Oral Tablet (Senokot) Take 2 Tablets by mouth in the morning. 60 Tablet 09/11/2023 Suspended Additional Information Vitamin 27-0.8 MG Oral Tablet Take 1 Tablet by mouth daily at noon. 60 Tablet 09/10/2023 Suspended Additional Information Acetaminophen 325 MG Oral Tablet (Tylenol) Take 3 Tablets by mouth every 6 hours. 84 Tablet 1 09/26/2023 Suspended Additional Information Melatonin ER 5 MG Oral Tablet Extended ReleaseIndications: Other insomnia 1 tab an hour before bedtime 30 Tablet 5 09/27/2023 Suspended Additional Information Ferrous Sulfate 325 (65 Fe) MG Oral Tablet (Feosol)Indications :Iron deficiency anemia due to chronic blood loss Take 1 Tablet by mouth in the morning and 1 Tablet before bedtime. 60 Tablet 11 09/27/2023 Suspended Additional Information Docusate Sodium 100 MG Oral Capsule (Colace)Indications :Constipation, unspecified constipation type Take 1 Capsule by mouth in the morning and 1 Capsule before bedtime. 60 Capsule 5 09/27/2023 Suspended Additional Information Baclofen 10 MG Oral Tablet (Lioresal)Indicatio ns:Closed nondisplaced fracture of posterior wall of right acetabulum with routine healing, subsequent encounter,Pain and swelling of right knee Take 1 Tablet by mouth at bedtime as needed for Pain. 20 Tablet 09/27/2023 Suspended Additional Information documented as of this encounter (statuses as of 10/05/2023) Active Problems Problem Noted Date Diagnosed Date [...] as of this encounter (statuses as of 10/05/2023) Resolved Problems Problem Noted Date Diagnosed Date Resolved Date On peripheral parenteral nutrition (ppn) 10/04/2023 10/05/2023 Gastrointestinal hemorrhage associated with duodenal ulcer 09/29/2023 10/05/2023 Closed displaced fracture of posterior wall of right acetabulum 09/05/2023 10/05/2023 Encounter for examination fo r normal comparison and control in clinical research program 07/26/2017 09/30/2019 Overview: DO NOT DELETE [facility] DETECT Study: Project # [id number], Box Tender: Eric Magana, PhD. SUMMARY: Goal: Establish test [...] contact study staff at ; after hours Box Tender via the [facility] hospital [place] mixer operator . Please contact study team before resolving/deleting from patients problem list. Study phone number: [phone]. Diagnosis changed due to Research Module. Go to Snapshot for study details. Encounter for examination fo r normal comparison and control in clinical research program 07/26/2017 10/28/2021 Overview: DO NOT DELETE [facility] Study: Project # [id number], Box Tender: Jordan Umana, MS, MPH. SUMMARY: Goal: Establish [...] contact study staff at ; after hours Box Tender via the [facility] hospital [place] mixer operator . - Please contact study team before resolving/deleting from patients problem list. Study phone number: [phone]. Diagnosis changed due to Research Module. Go to Snapshot for study details. Prediabetes 04/11/2017 05/09/2019 Overview: Per Prediabetes protocol #1 documented as of this encounter (statuses as of 10/05/2023) Immunizations Name Administration Dates Next Due COVID-19 [...] on file documented as of this encounter Functional Status Functional Status Response [...] No 09/29/2023 documented as of this encounter Miscellaneous Notes * Telephone Encounter - Tomasa Ching OSA - 10/05/2023 6:46 AM EDT [facility] 10/05/23 1 wk pcp f/u needed with labs. No appt avail. Please assist with patient scheduling. Thank you. Beth Brandt 09/29/2023 4:09 AM Admission Description: 78 year old female Department: 5 [facility] Message Patient Name: BETH BRANDT([id number]) Sex: Female : 1945 PCP: YAMINI PIPER Center: [facility] Types of orders made on 10/05/2023: IP Post Discharge , Lab, Medications Order Date:10/05/2023 Ordering User:ARNIE POSADAS [[id number]] Attending Provider:Kaylin Laird MD [[id number]] Authorizing Provider: Arnie Posadas DO [[id number]] Department:AP5 [facility][[id number]] Order Specific Information Order: RETURN APPT [CUSTOM: [id number]] Order #: [id number]: 1 Priority: Routine Class: Nursing Unit Department (Single Entry) -> Family Practice Appt Needed Within: (Specify # of Days, Weeks, Months) -> 1 Wk Provider -> YAMINI PIPER Tests Needed Prior to Appt -> BMP, CBC, Mg, Phos Released on: 10/05/2023 6:38 AM Priority: Routine Class: Nursing Unit Department (Single Entry) -> Family Practice Appt Needed Within: (Specify # of Days, Weeks, Months) -> 1 Wk Provider -> YAMINI PIPER Tests Needed Prior to Appt -> BMP, CBC, Mg, Phos Released on: 10/05/2023 6:38 AM documented in this encounter Plan of Treatment Upcoming Encounters Date Type Department Care Team (Late st Contact Info) Description 10/16/2023 9:45 AM EDT Office Visit Orthopaedics, [address] [address] Ranjeet Chowdhury Jr., MD [facility] [address] 10/18/2023 3:15 PM EDT Telemedicine General Surgery, [place] [address] [place] [address] Clinic, Emergency General Surgery [facility] [place] [address] 12/22/2023 2:00 PM EDT Office Visit General Internal Medicine [facility] [address] [place] [address] Yamini Piper MD [address] [place] [address] 02/01/2024 10:00 AM EST Cardiac Studies Cardiology, [facility] [address] [facility] [place] [address] [facility] [address] [facility] [place] [address] Scheduled Procedures Name Priority Associated Diagnoses Date/Ti [...] this encounter Medical Devices Implanted Type Area Budget Report Clerk Device Identifier Shelf Expiration Date Model / Serial / Lot Plate Lcp Pilon 3.5 7h 240.082 - [id number] Implanted:Qty: 1 on 09/05/2023 by Ranjeet Chowdhury Jr., MD at OR [facility] Right: Pelvis SYNTHES 240.082 / / Hip Head V40 Taper C C 222 0 - [id number] Implanted:Qty: 1 on 09/05/2023 by Ranjeet Chowdhury Jr., MD at OR [facility] Right: Hip TONI : ORTHOPAEDICS 07/09/2028 6260-4-122 / / [id number] Screw Selftap 3.5x36 204.836 - [id number] Implanted:Qty: 2 on 09/05/2023 by Ranjeet Chowdhury Jr., MD at OR [facility] Right: Pelvis SYNTHES 204.836 / / Screw Selftap 3.5x20 204.820 - [id number] Implanted:Qty: 2 on 09/05/2023 by Ranjeet Chowdhury Jr., MD at OR [facility] Right: Pelvis SYNTHES 204.820 / / Implant Hip Acetab Shell 50d - [id number] Implanted:Qty: 1 on 09/05/2023 by Ranjeet Chowdhury Jr., MD at OR [facility] Right: Hip TONI : ORTHOPAEDICS 11/28/2026 709-04-50D / / [id number] Screw Low Profile 6.5tbw06xf - [id number] Implanted:Qty: 1 on 09/05/2023 by Ranjeet Chowdhury Jr., MD at OR [facility] Right: Hip TONI : ORTHOPAEDICS 04/05/2028 7921-0868 / / [id number] Screw Low Profile 6.0ums28vs - [id number] Implanted:Qty: 1 on 09/05/2023 by Ranjeet Chowdhury Jr., MD at OR [facility] Right: Hip TONI : ORTHOPAEDICS 04/03/2028 2520-2395 / / GBCA Hip Liner Mdm Cocr 38 D - [id number] Implanted:Qty: 1 on 09/05/2023 by Ranjeet Chowdhury Jr., MD at OR [facility] Right: Hip TONI : ORTHOPAEDICS 07/24/2028 626-00-38D / / [id number] Implant Stem Hip Colr Std 2 - [id number] Implanted:Qty: 1 on 09/05/2023 by Ranjeet Chowdhury Jr., MD at OR [facility] Right: Hip TONI : ORTHOPAEDICS 03/13/2027 9814-8868 / / [id number] Mdm X3 Inser Liner 22x44 - [id number] Implanted:Qty: 1 on 09/05/2023 by Trenton Nunez, Ranjeet Drake MD at OR [facility] Right: Hip TONI : ORTHOPAEDICS 09/15/2027 7236-2-244 / / [id number] documented as of this encounter Advance Directives * Full Code (Latest Code Status on File) Date Activated Date Inactivated Comments 09/29/2023 4:55 AM This order refl ects the patients [...] Agen t (per Health Care Power of Head Neck Surgeon document) Care Teams Compliance Engineer Relationship Specialty Start Date End Date Yamini Piper MD [address] [place] [address] PCP - General Internal Medicine 05/03/18 documented as of this encounter
--- OUTSIDE RECORDS SUMMARY | 2023-10-11 05:31 | External Medical Summary ---
Author Name Unknown Address Unknown Organization K01:LABORATORY [facility] - [address] [place] [address] Laboratory Report Ordering Provider Test Date Status KATHARINA GAITNA 10/04/2023 19:48:00 Final Observation Date Value Abnormality Reference (Units ) Status Magnesium 10/04/2023 19:48:00 2.2 1.5-2.6 (m g/dL) Final Performing Location LABORATORY [facility] - [address] [place] [address]
--- OUTSIDE RECORDS SUMMARY | 2023-10-11 05:32 | External Medical Summary ---
Author Name Unknown Address Unknown Organization K01:LABORATORY [facility] [place] - [address] [place] [address] Laboratory Report Ordering Provider Test Date Status LETHA SOTO 10/02/2023 19:48:00 Final Observation Date Value Abnormality Reference (Units ) Status WBC, Total 10/02/2023 19:48:00 13.11 Above high normal 4.00-10.80 (K/uL) Final RBC 10/02/2023 19:48:00 2.50 3.85-5.15 (M/uL) Final Hemoglobin 10/02/2023 19:48:00 7.7 Below low normal 12.0-15.3 (g/dL) Final HCT 10/02/2023 19:48:00 23.6 Below low normal 36.0-45.2 (%) Final MCV 10/02/2023 19:48:00 94.4 81.5-97.5 (fL) Final MCH 10/02/2023 19:48:00 30.8 27.0-34.0 (pg) Final MCHC 10/02/2023 19:48:00 32.6 32.0-36.0 (g/dL) Final RDW 10/02/2023 19:48:00 21.3 11.5-15.5 (%) Final Platelets 10/02/2023 19:48:00 106 Below low normal 140-400 (K/uL) Final MPV 10/02/2023 19:48:00 10.3 6.6-11.1 (fL) Final Nucleated erythrocytes/100 leukocytes [Ratio] in Blood by Automated count 10/02/2023 19:48:00 0 <=0 (/100 WBCs) Final Performing Location LABORATORY [facility] - [address] [place] [address]
--- OUTSIDE RECORDS SUMMARY | 2023-10-11 05:32 | External Medical Summary ---
Author Name Unknown Address Unknown Organization K01:LABORATORY [facility] [place] [address] [place] [address] Laboratory Report Ordering Provider Test Date Status CHU ORTEGA 10/04/2023 08:09:00 Final Observation Date Value Abnormality Reference (Units ) Status Albumin 10/04/2023 08:09:00 3.4 Below low normal 3.8-5.0 (g/dL) Final AST (Aspartate aminotransferase) 10/04/2023 08:09:00 18 10-35 (U/L) Final Alk Phos 10/04/2023 08:09:00 97 35-130 (U/L) Final ALT (Alanine aminotransferase) 10/04/2023 08:09:00 13 10-35 (U/L) Final Bilirubin, Total 10/04/2023 08:09:00 0.3 <=1.2 (mg/dL) Final Bilirubin, Direct 10/04/2023 08:09:00 <0.2 0.0-0.3 (mg/dL) Final Protein 10/04/2023 08:09:00 5.4 Below low normal 6.0-8.3 (g/dL) Final Performing Location LABORATORY [facility] [place] - [address] [place] [address]
--- OUTSIDE RECORDS SUMMARY | 2023-10-11 05:32 | External Medical Summary ---
Author Name Unknown Address Unknown Organization K01:LABORATORY [facility] - [address] [place] [address] Laboratory Report Ordering Provider Test Date Status NATHALY JIN 10/02/2023 19:44:00 Final Observation Date Value Abnormality Reference (Units ) Status Phosphate 10/02/2023 19:44:00 2.8 2.5-4.8 (m g/dL) Final Performing Location LABORATORY [facility] - [address] [place] [address]
--- OUTSIDE RECORDS SUMMARY | 2023-10-11 05:32 | External Medical Summary ---
Author Name Unknown Address Unknown Organization K01:[place] [facility] [place] [address] [facility] [address] Laboratory Report Ordering Provider Test Date Status LETHA SOTO 10/03/2023 07:11:00 Final Observation Date Value Abnormality Reference (Units ) Status WBC, Total 10/03/2023 07:11:00 4.70 4.00-10.80 (K/uL) Final RBC 10/03/2023 07:11:00 2.45 3.85-5.15 (M/uL) Final Hemoglobin 10/03/2023 07:11:00 7.6 Below low normal 12.0-15.3 (g/dL) Final HCT 10/03/2023 07:11:00 23.4 Below low normal 36.0-45.2 (%) Final MCV 10/03/2023 07:11:00 95.5 81.5-97.5 (fL) Final MCH 10/03/2023 07:11:00 31.0 27.0-34.0 (pg) Final MCHC 10/03/2023 07:11:00 32.5 32.0-36.0 (g/dL) Final RDW 10/03/2023 07:11:00 21.4 11.5-15.5 (%) Final Platelets 10/03/2023 07:11:00 114 Below low normal 140-400 (K/uL) Final MPV 10/03/2023 07:11:00 10.9 6.6-11.1 (fL) Final Nucleated erythrocytes/100 leukocytes [Ratio] in Blood by Automated count 10/03/2023 07:11:00 0 <=0 (/100 WBCs) Final Performing Location LABORATORY [facility] - [address] [place] [address]
--- OUTSIDE RECORDS SUMMARY | 2023-10-11 05:32 | External Medical Summary ---
Author Name Unknown Address Unknown Organization K01:[place]ORY [facility] [place] [address] [place] [address] Laboratory Report Ordering Provider Test Date Status LETHA SOTO 10/04/2023 08:09:00 Final Observation Date Value Abnormality Reference (Units ) Status WBC, Total 10/04/2023 08:09:00 4.75 4.00-10.80 (K/uL) Final RBC 10/04/2023 08:09:00 2.89 3.85-5.15 (M/uL) Final Hemoglobin 10/04/2023 08:09:00 8.8 Below low normal 12.0-15.3 (g/dL) Final HCT 10/04/2023 08:09:00 27.6 Below low normal 36.0-45.2 (%) Final MCV 10/04/2023 08:09:00 95.5 81.5-97.5 (fL) Final MCH 10/04/2023 08:09:00 30.4 27.0-34.0 (pg) Final MCHC 10/04/2023 08:09:00 31.9 32.0-36.0 (g/dL) Final RDW 10/04/2023 08:09:00 21.6 11.5-15.5 (%) Final Platelets 10/04/2023 08:09:00 128 Below low normal 140-400 (K/uL) Final MPV 10/04/2023 08:09:00 10.7 6.6-11.1 (fL) Final Nucleated erythrocytes/100 leukocytes [Ratio] in Blood by Automated count 10/04/2023 08:09:00 0 <=0 (/100 WBCs) Final Performing Location LABORATORY [facility] [place] [address] [place] [address]
--- OUTSIDE RECORDS SUMMARY | 2023-10-11 05:32 | External Medical Summary ---
Author Name Unknown Address Unknown Organization K01:LABORATORY [facility] [place] - [address] [place] [address] Laboratory Report Ordering Provider Test Date Status NATHALY JIN 10/03/2023 07:11:00 Final Observation Date Value Abnormality Reference (Units ) Status BUN 10/03/2023 07:11:00 9 6-20 (mg/dL) Final Creatinine 10/03/2023 07:11:00 0.6 0.5-1.0 (mg/dL) Final Glomerular filtration rate/1.73 sq M.predicted [Volume Rate/Area] in Serum, Plasma or Blood by Creatinine-based formula (CKD-EPI) 10/03/2023 07:11:00 >90 >=60 (mL/min) Final eGFR is calculated based on the CKD-EPI 2020 equation. Sodium 10/03/2023 07:11:00 137 135-146 (m mol/L) Final Potassium 10/03/2023 07:11:00 3.3 Below low normal 3.5 -5.1 (mmol/L) Final Cl 10/03/2023 07:11:00 105 98-107 (mm ol/L) Final CO2 10/03/2023 07:11:00 20 Below low normal 22- 32 (mmol/L) Final Anion gap 10/03/2023 07:11:00 12 7-15 (mmol /L) Final Glucose 10/03/2023 07:11:00 111 70-120 (mg /dL) Final Calcium 10/03/2023 07:11:00 7.9 Below low normal 8.4 -10.2 (mg/dL) Final Performing Location LABORATORY [facility] [place] - [address] [place] [address]
--- OUTSIDE RECORDS SUMMARY | 2023-10-11 05:32 | External Medical Summary ---
Author Name Unknown Address Unknown Organization K01:LABORATORY [facility] [place] - [address] [place] [address] Laboratory Report Ordering Provider Test Date Status NATHALY JIN 10/03/2023 19:32:00 Final Observation Date Value Abnormality Reference (Units ) Status BUN 10/03/2023 19:32:00 9 6-20 (mg/dL) Final Creatinine 10/03/2023 19:32:00 0.5 0.5-1.0 (mg/dL) Final Glomerular filtration rate/1.73 sq M.predicted [Volume Rate/Area] in Serum, Plasma or Blood by Creatinine-based formula (CKD-EPI) 10/03/2023 19:32:00 >90 >=60 (mL/min) Final eGFR is calculated based on the CKD-EPI 2020 equation. Sodium 10/03/2023 19:32:00 136 135-146 (m mol/L) Final Potassium 10/03/2023 19:32:00 4.2 3.5-5.1 (m mol/L) Final Cl 10/03/2023 19:32:00 103 98-107 (mm ol/L) Final CO2 10/03/2023 19:32:00 20 Below low normal 22- 32 (mmol/L) Final Anion gap 10/03/2023 19:32:00 13 7-15 (mmol /L) Final Glucose 10/03/2023 19:32:00 166 Above high normal 70 -120 (mg/dL) Final Calcium 10/03/2023 19:32:00 8.3 Below low normal 8.4 -10.2 (mg/dL) Final Performing Location LABORATORY [facility] [place] - [address] [place] [address]
--- OUTSIDE RECORDS SUMMARY | 2023-10-11 05:32 | External Medical Summary ---
Author Name Unknown Address Unknown Organization K01:LABORATORY [facility] - [address] [place] [address] Laboratory Report Ordering Provider Test Date Status SAULQUE 10/03/2023 07:11:00 Final Observation Date Value Abnormality Reference (Units ) Status Phosphate 10/03/2023 07:11:00 2.7 2.5-4.8 (m g/dL) Final Performing Location [facility] - [address] [place] [address]
--- OUTSIDE RECORDS SUMMARY | 2023-10-11 05:32 | External Medical Summary | Summary of Care ---
Author Name Unknown Organization [facility] Address [address] [place] [address] Phone [phone] Care Team Providers Care System Software Programmer Name Role Phone Yamini Piper MD Primary Care Provider [phone] Reason for Visit * Reason Onset Date Comments Mycode Lab Reorder 10/02/2023 Encounter Details Date Type Department Care Team (Late st Contact Info) Description 10/02/2023 Orders Only Outcomes Research Department [address] [place] [address] Nell Leon CHRA MyCode Research Other*[id number]* Allergies Active Allergy Reactions Criticality Noted Date Comments Pollen 06/17/2014 Nasal congestion documented as of this encounter (statuses as of 10/02/2023) Medications Medication Sig Dispensed Refills Start Date [...] as of this encounter (statuses as of 10/02/2023) Active Problems Problem Noted Date Diagnosed Date Gastrointestinal hemorrhage associated with duod enal ulcer 09/29/2023 Duodenal perforation 09/29/2023 Retroperitoneal hematoma 09/26/2023 Closed [...] as of this encounter (statuses as of 10/02/2023) Resolved Problems Problem Noted Date Diagnosed Date Resolved Date Encounter for examination fo r normal comparison and control in clinical research program 07/26/2017 09/30/2019 [facility] Study: Project # [id number], Email Marketing Assistant: Eric Magana, PhD. SUMMARY: Goal: Establish test [...] contact study staff at ; after hours Email Marketing Assistant via the [facility] [place] rounding and backing machine operator . Please contact study team before resolving/deleting from patients problem list. Study phone number: [phone]. Diagnosis changed due to Research Module. Go to Snapshot for study details. Encounter for examination fo r normal comparison and control in clinical research program 07/26/2017 10/28/2021 Overview: [facility] Study: Project # [id number], Email Marketing Assistant: Jordan Umaan, MS, MPH. SUMMARY: Goal: Establish test characteristics [...] contact study staff at ; after hours Email Marketing Assistant via the [facility] [place] hospital rounding and backing machine operator . - Please contact study team before resolving/deleting from patients problem list. Study phone number: [phone]. Diagnosis changed due to Research Module. Go to Snapshot for study details. Prediabetes 04/11/2017 05/09/2019 Overview: Per Prediabetes protocol #1 documented as of this encounter (statuses as of 10/02/2023) Immunizations Name Administration Dates Next Due COVID-19 [...] (15 years old or older) No 09/29/19 24 Cognitive Status Response Date of Assessm ent Because of a physical, menta l, or emotional condition, do you have serious difficulty concentrating, remembering, or making decisions? (5 years old or older) No 09/29/2023 documented as of this encounter Progress Notes * Nell Leon CHRA - 10/02/2023 8:10 AM EDT MyCode lab reordered. documented in this encounter Plan of Treatment Upcoming Encounters Date Type Department Care Team (Late st Contact Info) Description 10/16/2023 9:45 AM EDT Office Visit Orthopaedics, [place] [address] [place] [address] Ranjeet Chowdhury Jr., MD [address] [place] [address] 12/22/2023 2:00 PM EDT Office Visit General Internal Medicine [facility] [address] [facility] [place] [address] Yamini Piper MD [address] [facility] [place] [address] 02/01/2024 10:00 AM EST Cardiac Studies Cardiology, [facility] [address] [place] [address] [place], Pacer Clinic [facility] [address] [place] [address] Scheduled Orders Name Type Priority Associated Diagnoses Orde r Schedule MYCODE SUBSEQUENT ADULT Lab Routine MyCode Research Other*[id number] Every 6 Months for 2 Occurrences starting 10/02/2023 until 10/21/2024 Scheduled Procedures Name Priority Associated Diagnoses Date/Ti [...] this encounter Medical Devices Implanted Type Area Form Building Supervisor Device Identifier Shelf Expiration Date Model / Serial / Lot Plate Lcp Pilon 3.5 7h 240.082 - [id number] Implanted:Qty: 1 on 09/05/2023 by Ranjeet Chowdhury Jr., MD at [place] [facility] [place] Right: Pelvis SYNTHES 240.082 / / Hip Head V40 Taper C C 222 0 - [id number] Implanted:Qty: 1 on 09/05/2023 by Ranjeet Chowdhury Jr., MD at [place] [facility] [place] Right: Hip TONI : ORTHOPAEDICS 07/09/2028 6260-4-122 / / [id number] Screw Selftap 3.5x36 204.836 - [id number] Implanted:Qty: 2 on 09/05/2023 by Ranjeet Chowdhury Jr., MD at OR [facility] [place] Right: Pelvis SYNTHES 204.836 / / Screw Selftap 3.5x20 204.820 - [id number] Implanted:Qty: 2 on 09/05/2023 by Ranjeet Chowdhury Jr., MD at [place] [facility] [place] Right: Pelvis SYNTHES 204.820 / / Implant Hip Acetab Shell 50d - [id number] Implanted:Qty: 1 on 09/05/2023 by Ranjeet Chowdhury Jr., MD at [place] [facility] [place] Right: Hip TONI : ORTHOPAEDICS 11/28/2026 709-04-50D / / [id number] Screw Low Profile 6.7yur73py - [id number] Implanted:Qty: 1 on 09/05/2023 by Ranjeet Chowdhury Jr., MD at OR [facility] [place] Right: Hip TONI : ORTHOPAEDICS 04/05/2028 3645-5205 / / [id number] Screw Low Profile 6.5bzb06qn - [id number] Implanted:Qty: 1 on 09/05/2023 by Ranjeet Chowdhury Jr., MD at OR [facility] [place] Right: Hip TONI : ORTHOPAEDICS 04/03/2028 4864-9846 / / GBCA Hip Liner Mdm Cocr 38 D - [id number] Implanted:Qty: 1 on 09/05/2023 by Ranjeet Chowdhury Jr., MD at OR [facility] [place] Right: Hip TONI : ORTHOPAEDICS 07/24/2028 626-00-38D / / [id number] Implant Stem Hip Colr Std 2 - [id number] Implanted:Qty: 1 on 09/05/2023 by Ranjeet Chowdhury Jr., MD at OR [facility] [place] Right: Hip TONI : ORTHOPAEDICS 03/13/2027 7273-7247 / / [id number] Mdm X3 Inser Liner 22x44 - [id number] Implanted:Qty: 1 on 09/05/2023 by Trenton Nunez, Ranjeet Drake MD at OR [facility] [place] Right: Hip TONI : ORTHOPAEDICS 09/15/2027 7236-2-244 / / [id number] documented as of this encounter Visit Diagnoses Diagnosis MyCode Research Other*[id number]- Primary documented in this encounter Advance Directives [...] Agen t (per Health Care Power of Rock Splitter document) Care Teams System Software Programmer Relationship Specialty Start Date End Date Yamini Piper MD [address] [place] [address] PCP - General Internal Medicine 05/03/18 documented as of this encounter
--- OUTSIDE RECORDS SUMMARY | 2023-10-11 05:32 | External Medical Summary ---
Author Name Unknown Address Unknown Organization K01:[place] [facility] [place] [address] [place] [address] Laboratory Report Ordering Provider Test Date Status LETHA SOTO 10/03/2023 19:32:00 Final Observation Date Value Abnormality Reference (Units ) Status WBC, Total 10/03/2023 19:32:00 4.95 4.00-10.80 (K/uL) Final RBC 10/03/2023 19:32:00 2.64 3.85-5.15 (M/uL) Final Hemoglobin 10/03/2023 19:32:00 8.0 Below low normal 12.0-15.3 (g/dL) Final HCT 10/03/2023 19:32:00 25.9 Below low normal 36.0-45.2 (%) Final MCV 10/03/2023 19:32:00 98.1 81.5-97.5 (fL) Final MCH 10/03/2023 19:32:00 30.3 27.0-34.0 (pg) Final MCHC 10/03/2023 19:32:00 30.9 32.0-36.0 (g/dL) Final RDW 10/03/2023 19:32:00 21.7 11.5-15.5 (%) Final Platelets 10/03/2023 19:32:00 114 Below low normal 140-400 (K/uL) Final MPV 10/03/2023 19:32:00 10.3 6.6-11.1 (fL) Final Nucleated erythrocytes/100 leukocytes [Ratio] in Blood by Automated count 10/03/2023 19:32:00 0 <=0 (/100 WBCs) Final Performing Location [facility] [place] [address] [place] [address]
--- OUTSIDE RECORDS SUMMARY | 2023-10-11 05:32 | External Medical Summary | Summary of Care ---
Author Name Unknown Organization [facility] Address [address] [place] [address] Phone [phone] Care Team Providers Care Filling And Packing Supervisor Name Role Phone Yamini Piper MD Primary Care Provider [phone] Reason for Visit * Reason Comments Retrieval Encounter Details Date Type Department Care Team (Late st Contact Info) Description 09/29/2023 2:35 AM EDT Documentation [employer] [place] [address] [place] [address] 1, [employer] [address] [place], [place] [address] GI bleed* Allergies Active Allergy Reactions Criticality Noted Date [...] research program 07/26/2017 09/30/2019 [facility] [place] [facility] DETECT Study: Project # [id number], Fish Header: Eric Magana, PhD. SUMMARY: Goal: Establish test [...] contact study staff at ; after hours Fish Header via the [facility] hospital treadle cut off saw operator . Please contact study team before resolving/deleting from patients problem list. Study phone number: [phone]. Diagnosis changed due to Research Module. Go to Snapshot for study details. Encounter for examination fo r normal comparison and control in clinical research program 07/26/2017 10/28/2021 Overview: [facility] DETECT Study: Project # [id number], Fish Header: Jordan Umana, MS, MPH. SUMMARY: Goal: Establish [...] contact study staff at ; after hours Fish Header via the [facility] hospital treadle cut off saw operator . - Please contact study team before resolving/deleting from patients problem list. Study phone number: [phone]. Diagnosis changed due to Research Module. Go [...] as of this encounter Progress Notes * Sonia Black, EMT-P - 09/29/2023 7:33 AM EDT MEDICARE AMBULANCE INFORMATION SHEET Patient Admitted as an Inpatient: yes Certifying Physician/Ordering Service:[facility] ED Physician - Jeffery Romo M.D. [facility] [address] [place] [address] Point of Watch Crystal Molder (zip code required): [facility] - [address]; [place] [address] Destination (Specify Name/Address): [facility] - [address] [facility] [place] [address] Patient transported to nearest facility (capable of mgmt for Pt's condition): YES Total number of Loaded Miles: 65.6 miles Mode of Transport: Air Completed by: CANDIDA Roberts-P documented in this encounter Plan of Treatment Upcoming Encounters Date Type Department Care Team (Late st Contact Info) Description 10/16/2023 9:45 AM EDT Office Visit Orthopaedics, [place] [address] [place] [address] Ranjeet Chowdhury Jr., MD [address] [place] [address] 12/22/2023 2:00 PM EDT Office Visit General Internal Medicine [facility] [address] [facility] [place] [address] Yamini Piper MD 200 [facility] [place] [address] 02/01/2024 10:00 AM EST Cardiac Studies Cardiology, [facility] [address] [facility] [place] [address] Jourdan Johnson [address] [place] [address] Scheduled Procedures Name Priority Associated Diagnoses Date/Ti [...] this encounter Medical Devices Implanted Type Area Hydrometallurgical Engineer Device Identifier Shelf Expiration Date Model / Serial / Lot Plate Lcp Pilon 3.5 7h 240.082 - [id number] Implanted:Qty: 1 on 09/05/2023 by Ranjeet Chowdhury Jr., MD at [place] [facility] Right: Pelvis SYNTHES 240.082 / / Hip Head V40 Taper C C 222 0 - [id number] Implanted:Qty: 1 on 09/05/2023 by Ranjeet Chowdhury Jr., MD at [place] [facility] Right: Hip TONI : ORTHOPAEDICS 07/09/2028 6260-4-122 / / [id number] Screw Selftap 3.5x36 204.836 - [id number] Implanted:Qty: 2 on 09/05/2023 by Ranjeet Chowdhury Jr., MD at OR [facility] Right: Pelvis SYNTHES 204.836 / / Screw Selftap 3.5x20 204.820 - [id number] Implanted:Qty: 2 on 09/05/2023 by Ranjeet Chowdhury Jr., MD at OR [facility] Right: Pelvis SYNTHES 204.820 / / Implant Hip Acetab Shell 50d - [id number] Implanted:Qty: 1 on 09/05/2023 by Ranjeet Chowdhury Jr., MD at OR [facility] Right: Hip TONI : ORTHOPAEDICS 11/28/2026 709-04-50D / / [id number] Screw Low Profile 6.9xgh24ub - [id number] Implanted:Qty: 1 on 09/05/2023 by Ranjeet Chowdhury Jr., MD at OR [facility] Right: Hip TONI : ORTHOPAEDICS 04/05/2028 7082-0568 / / [id number] Screw Low Profile 6.9nie77ka - [id number] Implanted:Qty: 1 on 09/05/2023 by Ranjeet Chowdhury Jr., MD at OR [facility] Right: Hip TONI : ORTHOPAEDICS 04/03/2028 6184-2764 / / GBCA Hip Liner Mdm Cocr 38 D - [id number] Implanted:Qty: 1 on 09/05/2023 by Ranjeet Chowdhury Jr., MD at [place] [facility] Right: Hip TONI : ORTHOPAEDICS 07/24/2028 626-00-38D / / [id number] Implant Stem Hip Colr Std 2 - [id number] Implanted:Qty: 1 on 09/05/2023 by Ranjeet Chowdhury Jr., MD at [place] [facility] Right: Hip TONI : ORTHOPAEDICS 03/13/2027 0359-6379 / / [id number] Mdm X3 Inser Liner 22x44 - [id number] Implanted:Qty: 1 on 09/05/2023 by Ranjeet Chowdhury Jr., MD at [place] [facility] Right: Hip TONI : ORTHOPAEDICS 09/15/2027 7236-2-244 / / [id number] documented as of this encounter Visit Diagnoses Diagnosis GI bleed- Primary Hemorrhage of gastrointestinal tract, unspecified documented in this encounter Advance Directives [...] Agents on File Name Relationship Healthcare Agent [facility] Erika Brandt [facility] (per Health Care Power of Survey Field Technician document) Care Teams Filling And Packing Supervisor Relationship Specialty Start Date End Date Yamini Piper MD [address] [place] [address], [place] [address] PCP - General Internal Medicine 05/03/18 documented as of this encounter
--- OUTSIDE RECORDS SUMMARY | 2023-10-11 05:32 | External Medical Summary ---
Author Name Unknown Address Unknown Organization K01:[facility]ORY [facility] [place] [address] [place] [address] Laboratory Report Ordering Provider Test Date Status LETHA SOTO 10/03/2023 09:12:00 Final Observation Date Value Abnormality Reference (Units ) Status Triglyceride 10/03/2023 09:12:00 146 <=174 ( mg/dL) Final Triglyceride Reference Range s (mg/dL):
<150 Acceptable
150-174 Borderline high
175-499 High
>=500 Very high Performing Location LABORATORY C - [address] [place] [address]
--- OUTSIDE RECORDS SUMMARY | 2023-10-11 05:32 | External Medical Summary ---
Author Name Unknown Address Unknown Organization K01:[place] [place] [address] [place] [address] Laboratory Report Ordering Provider Test Date Status KATHARINA GAITAN 10/04/2023 08:09:00 Final Observation Date Value Abnormality Reference (Units ) Status Retic, % (auto) 10/04/2023 08:09:00 6.29 Above high normal 0.80-1.90 (%) Final Reticulocytes, Absolute 10/04/2023 08:09:00 179.3 Above high normal 31.3-100.1 (K/uL) Final Reticulocyte fraction, immature 10/04/2023 08:09:00 23.2 Above high normal 2.5-20.6 (%) Final Reticulocyte HGB 10/04/2023 08:09:00 34.5 29.7-37.4 (pg) Final Performing Location LAB[facility] [place] [address] [place] [address]
--- OUTSIDE RECORDS SUMMARY | 2023-10-11 05:32 | External Medical Summary ---
Author Name Unknown Address Unknown Organization K01:[facility] [place] [address] [place] [address] Laboratory Report Ordering Provider Test Date Status NATHALY JIN 10/02/2023 19:44:00 Final Observation Date Value Abnormality Reference (Units ) Status BUN 10/02/2023 19:44:00 11 6-20 (mg/dL) Final Creatinine 10/02/2023 19:44:00 0.6 0.5-1.0 (mg/dL) Final Glomerular filtration rate/1.73 sq M.predicted [Volume Rate/Area] in Serum, Plasma or Blood by Creatinine-based formula (CKD-EPI) 10/02/2023 19:44:00 >90 >=60 (mL/min) Final eGFR is calculated based on the CKD-EPI 2020 equation. Sodium 10/02/2023 19:44:00 134 Below low normal 135 -146 (mmol/L) Final Potassium 10/02/2023 19:44:00 4.1 3.5-5.1 (m mol/L) Final Cl 10/02/2023 19:44:00 103 98-107 (mm ol/L) Final CO2 10/02/2023 19:44:00 13 Below low normal 22- 32 (mmol/L) Final Anion gap 10/02/2023 19:44:00 18 Above high normal 7- 15 (mmol/L) Final Glucose 10/02/2023 19:44:00 78 70-120 (mg /dL) Final Calcium 10/02/2023 19:44:00 7.7 Below low normal 8.4 -10.2 (mg/dL) Final Performing Location LAB[facility]ORY [facility] [place] [address] [place] [address]
--- OUTSIDE RECORDS SUMMARY | 2023-10-11 05:32 | External Medical Summary | Summary of Care ---
Author Name Unknown Organization [facility] Address [address] [place] [address] Phone [phone] Care Team Providers Care Plywood And Veneer Repairer Name Role Phone Yamini Piper MD Primary Care Provider [phone] Encounter Details Date Type Department Care Team (Late st Contact Info) Description 10/02/2023 Population Health External Data Unspecified Department Allergies [...] 07/26/2017 09/30/2019 Overview: DO NOT DELETE [facility] DETECT Study: Project # [id number], Oracle Pl Sql Developer: Eric Magana, PhD. SUMMARY: Goal: Establish test [...] contact study staff at ; after hours Oracle Pl Sql Developer via the [facility] hospital eyelet operator . Please contact study team before resolving/deleting from patients problem list. Study phone number: [phone]. Diagnosis changed due to Research Module. Go to Snapshot for study details. Encounter for examination fo r normal comparison and control in clinical research program 07/26/2017 10/28/2021 Overview: DO NOT DELETE - [employer] DETECT Study: Project # [id number], Oracle Pl Sql Developer: Jordan Umana, MS, MPH. SUMMARY: Goal: Establish [...] contact study staff at ; after hours Oracle Pl Sql Developer via the [facility] hospital eyelet operator . - Please contact study team before resolving/deleting from patients problem list. Study phone number: [phone]. Diagnosis changed due to Research Module. Go [...] No 09/29/2023 documented as of this encounter Plan of Treatment Upcoming Encounters Date Type Department Care Team (Late st Contact Info) Description 10/16/2023 9:45 AM EDT Office Visit Orthopaedics, [place] [address] [place] [address] Ranjeet Chowdhury Jr., MD [address] [place] [address] 12/22/2023 2:00 PM EDT Office Visit General Internal Medicine [facility] [address] [facility] [place] [address] Yamini Piper MD [address] [facility] [address] 02/01/2024 10:00 AM EST Cardiac Studies Cardiology, [facility] [address] [place] [address] [place], Pacer Clinic [facility] [address] [place] [address] Scheduled Procedures Name Priority Associated Diagnoses Date/Ti [...] this encounter Medical Devices Implanted Type Area Process Planner Device Identifier Shelf Expiration Date Model / Serial / Lot Plate Lcp Pilon 3.5 7h 240.082 - [id number] Implanted:Qty: 1 on 09/05/2023 by Ranjeet Chowdhury Jr., MD at [place] [facility] Right: Pelvis SYNTHES 240.082 / / Hip Head V40 Taper C C 222 0 - [id number] Implanted:Qty: 1 on 09/05/2023 by Ranjeet Chowdhury Jr., MD at OR [facility] Right: Hip TONI : ORTHOPAEDICS 07/09/2028 6260-4-122 / / [id number] Screw Selftap 3.5x36 204.836 - [id number] Implanted:Qty: 2 on 09/05/2023 by Ranjeet Chowdhury Jr., MD at OR [facility] Right: Pelvis SYNTHES 204.836 / / Screw Selftap 3.5x20 204.820 - [id number] Implanted:Qty: 2 on 09/05/2023 by Ranjeet Chowdhury Jr., MD at OR [facility] Right: Pelvis SYNTHES 204.820 / / Implant Hip Acetab Shell 50d - [id number] Implanted:Qty: 1 on 09/05/2023 by Ranjeet Chowdhury Jr., MD at OR [facility] Right: Hip TONI : ORTHOPAEDICS 11/28/2026 709-04-50D / / [id number] Screw Low Profile 6.6zbl00lt - [id number] Implanted:Qty: 1 on 09/05/2023 by Ranjeet Chowdhury Jr., MD at OR [facility] Right: Hip TONI : ORTHOPAEDICS 04/05/2028 1181-2472 / / [id number] Screw Low Profile 6.9fhm65ni - [id number] Implanted:Qty: 1 on 09/05/2023 by Ranjeet Chowdhury Jr., MD at OR [facility] Right: Hip TONI : ORTHOPAEDICS 04/03/2028 2277-3215 / / GBCA Hip Liner Mdm Cocr 38 D - [id number] Implanted:Qty: 1 on 09/05/2023 by Ranjeet Chowdhury Jr., MD at OR [facility] Right: Hip TONI : ORTHOPAEDICS 07/24/2028 626-00-38D / / [id number] Implant Stem Hip Colr Std 2 - [id number] Implanted:Qty: 1 on 09/05/2023 by Ranjeet Chowdhury Jr., MD at OR [facility] Right: Hip TONI : ORTHOPAEDICS 03/13/2027 2985-8162 / / [id number] Mdm X3 Inser Liner 22x44 - [id number] Implanted:Qty: 1 on 09/05/2023 by Ranjeet Chowdhury Jr., MD at OR [facility] Right: Hip TONI : ORTHOPAEDICS 09/15/2027 7236-2-244 / / [id number] documented as of this encounter Advance Directives [...] t (per Health Care Power of Legal Process Specialist document) Care Teams Plywood And Veneer Repairer Relationship Specialty Start Date End Date Yamini Piper MD [address] [facility] [address] PCP - General Internal Medicine 05/03/18 documented as of this encounter
--- OUTSIDE RECORDS SUMMARY | 2023-10-11 05:32 | External Medical Summary ---
Author Name Unknown Address Unknown Organization K01:[facility]ATORY [facility] [place] [address] [place] [address] Laboratory Report Ordering Provider Test Date Status ARNIECONCHISLORAGLORY 10/03/2023 09:12:00 Final Observation Date Value Abnormality Reference (Units ) Status Calcium.ionized [Moles/volume] in Serum or Plasma by Ion-selective membrane electrode (ISE) 10/03/2023 09:12:00 1.21 1.13-1.32 (mmol/L) Final This test was developed and its performance characteristics dtermined by [employer]. It has not been cleared or approved by the [place] Food and Drug Administration Performing Location LABORATORY [place] [address] [place] [address]
--- OUTSIDE RECORDS SUMMARY | 2023-10-11 05:32 | External Medical Summary ---
Author Name Unknown Address Unknown Organization K01:[facility] [place] [address] [place] [address] Laboratory Report Ordering Provider Test Date Status KATHARINA GAITAN 10/04/2023 08:09:00 Final Observation Date Value Abnormality Reference (Units ) Status Ferritin 10/04/2023 08:09:00 732 Above high normal 13 -150 (ng/mL) Final Postmenopausal women have hi gher ferritin levels than pre-menopausal women. The above reference interval is based on pre-menopausal women. Performing Location LABORATORY [facility] - [address] [place] [address]
--- OUTSIDE RECORDS SUMMARY | 2023-10-11 05:32 | External Medical Summary ---
Author Name Unknown Address Unknown Organization K01:LABORATORY [facility] [place] - [address] [place] [address] Laboratory Report Ordering Provider Test Date Status KATHARINA GAITAN 10/04/2023 08:09:00 Final Observation Date Value Abnormality Reference (Units ) Status Folic Acid 10/04/2023 08:09:00 19.2 >4.5 (ng/ mL) Final Performing Location LABORATORY [facility] - [address] [place] [address]
--- OUTSIDE RECORDS SUMMARY | 2023-10-11 05:32 | External Medical Summary ---
Author Name Unknown Address Unknown Organization [id number]:[facility] [place] [address] [place] [address] Laboratory Report Ordering Provider Test Date Status NATHALY JIN 10/04/2023 08:09:00 Final Observation Date Value Abnormality Reference (Units ) Status BUN 10/04/2023 08:09:00 8 6-20 (mg/dL) Final Creatinine 10/04/2023 08:09:00 0.5 0.5-1.0 (mg/dL) Final Glomerular filtration rate/1.73 sq M.predicted [Volume Rate/Area] in Serum, Plasma or Blood by Creatinine-based formula (CKD-EPI) 10/04/2023 08:09:00 >90 >=60 (mL/min) Final eGFR is calculated based on the CKD-EPI 2020 equation. Sodium 10/04/2023 08:09:00 138 135-146 (m mol/L) Final Potassium 10/04/2023 08:09:00 3.6 3.5-5.1 (m mol/L) Final Cl 10/04/2023 08:09:00 104 98-107 (mm ol/L) Final CO2 10/04/2023 08:09:00 22 22-32 (mmo l/L) Final Anion gap 10/04/2023 08:09:00 12 7-15 (mmol /L) Final Glucose 10/04/2023 08:09:00 136 Above high normal 70 -120 (mg/dL) Final Calcium 10/04/2023 08:09:00 8.4 8.4-10.2 ( mg/dL) Final Performing Location [facility] [place] - [address] [place] [address]
--- OUTSIDE RECORDS SUMMARY | 2023-10-11 05:32 | External Medical Summary ---
Author Name Unknown Address Unknown Organization [id number]:[facility] [address] [place] [address] Laboratory Report Ordering Provider Test Date Status KATHARINA GAITAN 10/03/2023 19:32:00 Final Observation Date Value Abnormality Reference (Units ) Status Phosphate 10/03/2023 19:32:00 4.5 2.5-4.8 (m g/dL) Final Performing Location [facility] - [address] [place] [address]
--- OUTSIDE RECORDS SUMMARY | 2023-10-11 05:32 | External Medical Summary ---
Author Name Unknown Address Unknown Organization [id number]:[facility] [place] [address] [place] [address] Laboratory Report Ordering Provider Test Date Status CHU ORTEGA 10/03/2023 07:11:00 Final Observation Date Value Abnormality Reference (Units ) Status Albumin 10/03/2023 07:11:00 3.0 Below low normal 3.8-5.0 (g/dL) Final AST (Aspartate aminotransferase) 10/03/2023 07:11:00 18 10-35 (U/L) Final Alk Phos 10/03/2023 07:11:00 91 35-130 (U/L) Final ALT (Alanine aminotransferase) 10/03/2023 07:11:00 13 10-35 (U/L) Final Bilirubin, Total 10/03/2023 07:11:00 0.3 <=1.2 (mg/dL) Final Bilirubin, Direct 10/03/2023 07:11:00 <0.2 0.0-0.3 (mg/dL) Final Protein 10/03/2023 07:11:00 4.9 Below low normal 6.0-8.3 (g/dL) Final Performing Location [facility] [place] [address] [place] [address]
--- OUTSIDE RECORDS SUMMARY | 2023-10-11 05:32 | External Medical Summary ---
Author Name Unknown Address Unknown Organization K01:[facility] - [address] [place] [address] Laboratory Report Ordering Provider Test Date Status NATHALY JIN 10/02/2023 19:44:00 Final Observation Date Value Abnormality Reference (Units ) Status Magnesium 10/02/2023 19:44:00 2.0 1.5-2.6 (m g/dL) Final Performing Location [facility] - [address] [place] [address]
--- OUTSIDE RECORDS SUMMARY | 2023-10-11 05:32 | External Medical Summary ---
Author Name Unknown Address Unknown Organization K01:[facility] - [address] [place] [address] Laboratory Report Ordering Provider Test Date Status SAULQUE 10/03/2023 07:11:00 Final Observation Date Value Abnormality Reference (Units ) Status Magnesium 10/03/2023 07:11:00 2.1 1.5-2.6 (m g/dL) Final Performing Location [facility] - [address] [place] [address]
--- OUTSIDE RECORDS SUMMARY | 2023-10-11 05:32 | External Medical Summary ---
Author Name Unknown Address Unknown Organization K01:[facility] [place] - [address] [place] [address] Laboratory Report Ordering Provider Test Date Status KATHARINA GAITAN 10/04/2023 08:09:00 Final Observation Date Value Abnormality Reference (Units ) Status Vitamin B12 10/04/2023 08:09:00 [phone] (pg/mL) Final Performing Location [facility]ATORY [facility] - [address] [place] [address]
--- OUTSIDE RECORDS SUMMARY | 2023-10-11 05:32 | External Medical Summary ---
Author Name Unknown Address Unknown Organization K01:[facility] - [address] [place] [address] Laboratory Report Ordering Provider Test Date Status KATHARINA GAITAN 10/04/2023 08:09:00 Final Observation Date Value Abnormality Reference (Units ) Status Phosphate 10/04/2023 08:09:00 3.4 2.5-4.8 (m g/dL) Final Performing Location [facility] - [address] [place] [address]
--- OUTSIDE RECORDS SUMMARY | 2023-10-11 05:32 | External Medical Summary ---
Author Name Unknown Address Unknown Organization K01:[facility] - [address] [place] [address] Laboratory Report Ordering Provider Test Date Status KATHARINA GAITAN 10/03/2023 19:32:00 Final Observation Date Value Abnormality Reference (Units ) Status Magnesium 10/03/2023 19:32:00 1.9 1.5-2.6 (m g/dL) Final Performing Location [facility] - [address] [place] [address]
--- OUTSIDE RECORDS SUMMARY | 2023-10-11 05:33 | External Medical Summary ---
Author Name Unknown Address Unknown Organization K01:[facility]ATORY [facility] [place] - [address] [place] [address] Laboratory Report Ordering Provider Test Date Status CHU ORTEGA 10/01/2023 04:48:00 Final Observation Date Value Abnormality Reference (Units ) Status BUN 10/01/2023 04:48:00 11 6-20 (mg/dL) Final Creatinine 10/01/2023 04:48:00 0.6 0.5-1.0 (mg/dL) Final Glomerular filtration rate/1.73 sq M.predicted [Volume Rate/Area] in Serum, Plasma or Blood by Creatinine-based formula (CKD-EPI) 10/01/2023 04:48:00 >90 >=60 (mL/min) Final eGFR is calculated based on the CKD-EPI 2020 equation. Sodium 10/01/2023 04:48:00 136 135-146 (m mol/L) Final Potassium 10/01/2023 04:48:00 3.7 3.5-5.1 (m mol/L) Final Cl 10/01/2023 04:48:00 106 98-107 (mm ol/L) Final CO2 10/01/2023 04:48:00 21 Below low normal 22- 32 (mmol/L) Final Anion gap 10/01/2023 04:48:00 9 7-15 (mmol /L) Final Glucose 10/01/2023 04:48:00 76 70-120 (mg /dL) Final Calcium 10/01/2023 04:48:00 7.8 Below low normal 8.4 -10.2 (mg/dL) Final Performing Location LABORATORY [facility] [place] - [address] [place] [address]
--- OUTSIDE RECORDS SUMMARY | 2023-10-11 05:33 | External Medical Summary ---
Author Name Unknown Address Unknown Organization K01:[facility] - [address] [place] [address] Laboratory Report Ordering Provider Test Date Status CHU ORTEGA 10/01/2023 04:48:00 Final Observation Date Value Abnormality Reference (Units ) Status Magnesium 10/01/2023 04:48:00 2.3 1.5-2.6 (m g/dL) Final Performing Location [facility] - [address] [place] [address]
--- OUTSIDE RECORDS SUMMARY | 2023-10-11 05:33 | External Medical Summary ---
Author Name Unknown Address Unknown Organization K01:[facility]ORY [facility] [place] - [address] [place] [address] Laboratory Report Ordering Provider Test Date Status CHU ORTEGA 09/30/2023 19:18:00 Final Observation Date Value Abnormality Reference (Units ) Status WBC, Total 09/30/2023 19:18:00 7.21 4.00-10.80 (K/uL) Final RBC 09/30/2023 19:18:00 2.94 3.85-5.15 (M/uL) Final Hemoglobin 09/30/2023 19:18:00 8.9 Below low normal 12.0-15.3 (g/dL) Final HCT 09/30/2023 19:18:00 27.4 Below low normal 36.0-45.2 (%) Final MCV 09/30/2023 19:18:00 93.2 81.5-97.5 (fL) Final MCH 09/30/2023 19:18:00 30.3 27.0-34.0 (pg) Final MCHC 09/30/2023 19:18:00 32.5 32.0-36.0 (g/dL) Final RDW 09/30/2023 19:18:00 21.1 11.5-15.5 (%) Final Platelets 09/30/2023 19:18:00 119 Below low normal 140-400 (K/uL) Final MPV 09/30/2023 19:18:00 10.0 6.6-11.1 (fL) Final Nucleated erythrocytes/100 leukocytes [Ratio] in Blood by Automated count 09/30/2023 19:18:00 0 <=0 (/100 WBCs) Final Performing Location LAB[facility]ATORY [facility] [place] - [address] [place] [address]
--- OUTSIDE RECORDS SUMMARY | 2023-10-11 05:33 | External Medical Summary ---
Author Name Unknown Address Unknown Organization K01:[facility] [place] [address] [place] [address] Laboratory Report Ordering Provider Test Date Status CHU ORTEGA 10/01/2023 00:39:00 Final Observation Date Value Abnormality Reference (Units ) Status WBC, Total 10/01/2023 00:39:00 6.95 4.00-10.80 (K/uL) Final RBC 10/01/2023 00:39:00 2.78 3.85-5.15 (M/uL) Final Hemoglobin 10/01/2023 00:39:00 8.3 Below low normal 12.0-15.3 (g/dL) Final HCT 10/01/2023 00:39:00 25.7 Below low normal 36.0-45.2 (%) Final MCV 10/01/2023 00:39:00 92.4 81.5-97.5 (fL) Final MCH 10/01/2023 00:39:00 29.9 27.0-34.0 (pg) Final MCHC 10/01/2023 00:39:00 32.3 32.0-36.0 (g/dL) Final RDW 10/01/2023 00:39:00 20.9 11.5-15.5 (%) Final Platelets 10/01/2023 00:39:00 104 Below low normal 140-400 (K/uL) Final MPV 10/01/2023 00:39:00 11.0 6.6-11.1 (fL) Final Nucleated erythrocytes/100 leukocytes [Ratio] in Blood by Automated count 10/01/2023 00:39:00 0 <=0 (/100 WBCs) Final Performing Location [facility] [place] [address] [place] [address]
--- OUTSIDE RECORDS SUMMARY | 2023-10-11 05:33 | External Medical Summary ---
Author Name Unknown Address Unknown Organization K01:[facility]ATORY [place] [address] [place] [address] Laboratory Report Ordering Provider Test Date Status JORDANCHU 09/30/2023 05:30:00 Final Observation Date Value Abnormality Reference (Units ) Status Calcium.ionized [Moles/volume] in Serum or Plasma by Ion-selective membrane electrode (ISE) 09/30/2023 05:30:00 1.12 Below low normal 1.13-1.32 (mmol/L) Final This test was developed and its performance characteristics dtermined by [employer]. It has not been cleared or approved by the [place] Food and Drug Administration Performing Location [facility] [place] [address] [facility] [address]
--- OUTSIDE RECORDS SUMMARY | 2023-10-11 05:33 | External Medical Summary ---
Author Name Unknown Address Unknown Organization K01:[facility] [place] [address] [place] [address] Laboratory Report Ordering Provider Test Date Status LETHA SOTO 10/02/2023 06:47:00 Final Observation Date Value Abnormality Reference (Units ) Status WBC, Total 10/02/2023 06:47:00 6.25 4.00-10.80 (K/uL) Final RBC 10/02/2023 06:47:00 2.66 3.85-5.15 (M/uL) Final Hemoglobin 10/02/2023 06:47:00 8.0 Below low normal 12.0-15.3 (g/dL) Final HCT 10/02/2023 06:47:00 26.4 Below low normal 36.0-45.2 (%) Final MCV 10/02/2023 06:47:00 99.2 81.5-97.5 (fL) Final MCH 10/02/2023 06:47:00 30.1 27.0-34.0 (pg) Final MCHC 10/02/2023 06:47:00 30.3 32.0-36.0 (g/dL) Final RDW 10/02/2023 06:47:00 21.7 11.5-15.5 (%) Final Platelets 10/02/2023 06:47:00 119 Below low normal 140-400 (K/uL) Final MPV 10/02/2023 06:47:00 10.8 6.6-11.1 (fL) Final Nucleated erythrocytes/100 leukocytes [Ratio] in Blood by Automated count 10/02/2023 06:47:00 0 <=0 (/100 WBCs) Final Performing Location [facility] [place] [address] [place] [address]
--- OUTSIDE RECORDS SUMMARY | 2023-10-11 05:33 | External Medical Summary ---
Author Name Unknown Address Unknown Organization K01:[facility]ORY [place] [address] [place] [address] Laboratory Report Ordering Provider Test Date Status CHU ORTEGA 10/01/2023 04:48:00 Final Observation Date Value Abnormality Reference (Units ) Status Calcium.ionized [Moles/volume] in Serum or Plasma by Ion-selective membrane electrode (ISE) 10/01/2023 04:48:00 1.15 1.13-1.32 (mmol/L) Final This test was developed and its performance characteristics dtermined by [employer]. It has not been cleared or approved by the [place] Food and Drug Administration Performing Location LABORATORY [place] [address] [place] [address]
--- OUTSIDE RECORDS SUMMARY | 2023-10-11 05:33 | External Medical Summary ---
Author Name Unknown Address Unknown Organization K01:[facility] [place] [address] [place] [address] Laboratory Report Ordering Provider Test Date Status CHU ORTEGA 10/02/2023 06:47:00 Final Observation Date Value Abnormality Reference (Units ) Status Albumin 10/02/2023 06:47:00 3.2 Below low normal 3.8-5.0 (g/dL) Final AST (Aspartate aminotransferase) 10/02/2023 06:47:00 20 10-35 (U/L) Final Alk Phos 10/02/2023 06:47:00 91 35-130 (U/L) Final ALT (Alanine aminotransferase) 10/02/2023 06:47:00 16 10-35 (U/L) Final Bilirubin, Total 10/02/2023 06:47:00 0.5 <=1.2 (mg/dL) Final Bilirubin, Direct 10/02/2023 06:47:00 <0.2 0.0-0.3 (mg/dL) Final Protein 10/02/2023 06:47:00 4.9 Below low normal 6.0-8.3 (g/dL) Final Performing Location [facility] [place] [address] [place] [address]
--- OUTSIDE RECORDS SUMMARY | 2023-10-11 05:33 | External Medical Summary ---
Author Name Unknown Address Unknown Organization K01:LAB[facility]ATORY [facility] [place] - [address] [place] [address] Laboratory Report Ordering Provider Test Date Status CHU ORTEGA 09/30/2023 05:30:00 Final Observation Date Value Abnormality Reference (Units ) Status BUN 09/30/2023 05:30:00 7 6-20 (mg/dL) Final Creatinine 09/30/2023 05:30:00 0.6 0.5-1.0 (mg/dL) Final Glomerular filtration rate/1.73 sq M.predicted [Volume Rate/Area] in Serum, Plasma or Blood by Creatinine-based formula (CKD-EPI) 09/30/2023 05:30:00 >90 >=60 (mL/min) Final eGFR is calculated based on the CKD-EPI 2020 equation. Sodium 09/30/2023 05:30:00 137 135-146 (m mol/L) Final Potassium 09/30/2023 05:30:00 3.5 3.5-5.1 (m mol/L) Final Cl 09/30/2023 05:30:00 106 98-107 (mm ol/L) Final CO2 09/30/2023 05:30:00 22 22-32 (mmo l/L) Final Anion gap 09/30/2023 05:30:00 9 7-15 (mmol /L) Final Glucose 09/30/2023 05:30:00 89 70-120 (mg /dL) Final Calcium 09/30/2023 05:30:00 7.9 Below low normal 8.4 -10.2 (mg/dL) Final Performing Location LABORATORY [facility] [place] - [address] [place] [address]
--- OUTSIDE RECORDS SUMMARY | 2023-10-11 05:33 | External Medical Summary ---
Author Name Unknown Address Unknown Organization K01:[facility] [place] [address] [place] [address] Laboratory Report Ordering Provider Test Date Status CHU ORTEGA 09/29/2023 23:18:00 Final Observation Date Value Abnormality Reference (Units ) Status WBC, Total 09/29/2023 23:18:00 6.47 4.00-10.80 (K/uL) Final RBC 09/29/2023 23:18:00 2.94 3.85-5.15 (M/uL) Final Hemoglobin 09/29/2023 23:18:00 8.9 Below low normal 12.0-15.3 (g/dL) Final HCT 09/29/2023 23:18:00 26.6 Below low normal 36.0-45.2 (%) Final MCV 09/29/2023 23:18:00 90.5 81.5-97.5 (fL) Final MCH 09/29/2023 23:18:00 30.3 27.0-34.0 (pg) Final MCHC 09/29/2023 23:18:00 33.5 32.0-36.0 (g/dL) Final RDW 09/29/2023 23:18:00 20.8 11.5-15.5 (%) Final Platelets 09/29/2023 23:18:00 105 Below low normal 140-400 (K/uL) Final MPV 09/29/2023 23:18:00 10.2 6.6-11.1 (fL) Final Nucleated erythrocytes/100 leukocytes [Ratio] in Blood by Automated count 09/29/2023 23:18:00 0 <=0 (/100 WBCs) Final Performing Location [facility] [place] [address] [place] [address]
--- OUTSIDE RECORDS SUMMARY | 2023-10-11 05:33 | External Medical Summary ---
Author Name Unknown Address Unknown Organization K01:[facility] [place] - [address] [place] [address] Laboratory Report Ordering Provider Test Date Status CHU ORTEGA 09/29/2023 23:31:00 Final Observation Date Value Abnormality Reference (Units ) Status Lactic Acid 09/29/2023 23:31:00 0.8 0.4-2.0 (mmol/L) Final Performing Location [facility] [place] [address] [place] [address]
--- OUTSIDE RECORDS SUMMARY | 2023-10-11 05:33 | External Medical Summary ---
Author Name Unknown Address Unknown Organization K01:[facility] [place] [address] [place] [address] Laboratory Report Ordering Provider Test Date Status CHU ORTEGA 09/30/2023 05:30:00 Final Observation Date Value Abnormality Reference (Units ) Status WBC, Total 09/30/2023 05:30:00 5.85 4.00-10.80 (K/uL) Final RBC 09/30/2023 05:30:00 2.74 3.85-5.15 (M/uL) Final Hemoglobin 09/30/2023 05:30:00 8.1 Below low normal 12.0-15.3 (g/dL) Final HCT 09/30/2023 05:30:00 25.1 Below low normal 36.0-45.2 (%) Final MCV 09/30/2023 05:30:00 91.6 81.5-97.5 (fL) Final MCH 09/30/2023 05:30:00 29.6 27.0-34.0 (pg) Final MCHC 09/30/2023 05:30:00 32.3 32.0-36.0 (g/dL) Final RDW 09/30/2023 05:30:00 20.8 11.5-15.5 (%) Final Platelets 09/30/2023 05:30:00 102 Below low normal 140-400 (K/uL) Final MPV 09/30/2023 05:30:00 10.3 6.6-11.1 (fL) Final Nucleated erythrocytes/100 leukocytes [Ratio] in Blood by Automated count 09/30/2023 05:30:00 0 <=0 (/100 WBCs) Final Performing Location [facility] [place] [address] [place] [address]
--- OUTSIDE RECORDS SUMMARY | 2023-10-11 05:33 | External Medical Summary ---
Author Name Unknown Address Unknown Organization K01:[facility] [place] [address] [place] [address] Laboratory Report Ordering Provider Test Date Status CHU ORTEGA 09/29/2023 17:18:00 Final Observation Date Value Abnormality Reference (Units ) Status WBC, Total 09/29/2023 17:18:00 6.25 4.00-10.80 (K/uL) Final RBC 09/29/2023 17:18:00 2.74 3.85-5.15 (M/uL) Final Hemoglobin 09/29/2023 17:18:00 8.2 Below low normal 12.0-15.3 (g/dL) Final HCT 09/29/2023 17:18:00 24.4 Below low normal 36.0-45.2 (%) Final MCV 09/29/2023 17:18:00 89.1 81.5-97.5 (fL) Final MCH 09/29/2023 17:18:00 29.9 27.0-34.0 (pg) Final MCHC 09/29/2023 17:18:00 33.6 32.0-36.0 (g/dL) Final RDW 09/29/2023 17:18:00 20.9 11.5-15.5 (%) Final Platelets 09/29/2023 17:18:00 120 Below low normal 140-400 (K/uL) Final MPV 09/29/2023 17:18:00 10.5 6.6-11.1 (fL) Final Nucleated erythrocytes/100 leukocytes [Ratio] in Blood by Automated count 09/29/2023 17:18:00 0 <=0 (/100 WBCs) Final Performing Location [facility] [place] [address] [place] [address]
--- OUTSIDE RECORDS SUMMARY | 2023-10-11 05:33 | External Medical Summary ---
Author Name Unknown Address Unknown Organization K01:[facility] - [address] [place] [address] Laboratory Report Ordering Provider Test Date Status CHU ORTEGA 10/01/2023 04:48:00 Final Observation Date Value Abnormality Reference (Units ) Status Phosphate 10/01/2023 04:48:00 3.4 2.5-4.8 (m g/dL) Final Performing Location [facility] - [address] [place] [address]
--- OUTSIDE RECORDS SUMMARY | 2023-10-11 05:33 | External Medical Summary ---
Author Name Unknown Address Unknown Organization K01:[facility] - [address] [place] [address] Laboratory Report Ordering Provider Test Date Status HOST SAULQUE 10/02/2023 06:47:00 Final Observation Date Value Abnormality Reference (Units ) Status Magnesium 10/02/2023 06:47:00 2.2 1.5-2.6 (m g/dL) Final Performing Location [facility] - [address] [place] [address]
--- OUTSIDE RECORDS SUMMARY | 2023-10-11 05:33 | External Medical Summary ---
Author Name Unknown Address Unknown Organization K01:[place] [facility] [place] [address] [place] [address] Laboratory Report Ordering Provider Test Date Status CHU ORTEGA 09/30/2023 05:30:00 Final Observation Date Value Abnormality Reference (Units ) Status Albumin 09/30/2023 05:30:00 2.8 Below low normal 3.8-5.0 (g/dL) Final AST (Aspartate aminotransferase) 09/30/2023 05:30:00 22 10-35 (U/L) Final Alk Phos 09/30/2023 05:30:00 90 35-130 (U/L) Final ALT (Alanine aminotransferase) 09/30/2023 05:30:00 18 10-35 (U/L) Final Bilirubin, Total 09/30/2023 05:30:00 0.6 <=1.2 (mg/dL) Final Bilirubin, Direct 09/30/2023 05:30:00 <0.2 0.0-0.3 (mg/dL) Final Protein 09/30/2023 05:30:00 4.8 Below low normal 6.0-8.3 (g/dL) Final Performing Location [facility] [place] [address] [place] [address]
--- OUTSIDE RECORDS SUMMARY | 2023-10-11 05:33 | External Medical Summary ---
Author Name Unknown Address Unknown Organization K01:[facility]ORY [facility] [place] - [address] [place] [address] Laboratory Report Ordering Provider Test Date Status CHU ORTEGA 09/30/2023 05:30:00 Final Observation Date Value Abnormality Reference (Units ) Status Lactic Acid 09/30/2023 05:30:00 0.7 0.4-2.0 (mmol/L) Final Performing Location LABORATORY [facility] [place] - [address] [place] [address]
--- OUTSIDE RECORDS SUMMARY | 2023-10-11 05:33 | External Medical Summary | Summary of Care ---
Author Name Unknown Organization [facility] Address [address] [place] [address] Phone [phone] Care Team Providers Care User Experience Developer Name Role Phone Yamini Piper MD Primary Care Provider [phone] Encounter Details Date Type Department Care Team (Late st Contact Info) Description 09/29/2023 Orders Only General Internal Medicine [facility] [address] [facility] [place] [address] Yamini Piper MD [address] [place] [address] Allergies Active Allergy Reactions Criticality Noted Date Comments Pollen 06/17/2014 Nasal congestion documented as of this encounter (statuses as of 09/29/2023) Medications Medication Sig Dispensed Refills Start Date [...] as of this encounter (statuses as of 09/29/2023) Active Problems Problem Noted Date Diagnosed Date Gastrointestinal hemorrhage associated with duod enal ulcer 09/29/2023 Retroperitoneal hematoma 09/26/2023 Closed fracture of [...] as of this encounter (statuses as of 09/29/2023) Resolved Problems Problem Noted Date Diagnosed Date Resolved Date Encounter for examination fo r normal comparison and control in clinical research program 07/26/2017 09/30/2019 Overview: DO NOT DELETE [facility] DETECT Study: Project # [id number], Relocation Director: Eric Magana, PhD. SUMMARY: Goal: Establish [...] contact study staff at ; after hours Relocation Director via the [facility] hospital finishing tunnel operator . Please contact study team before resolving/deleting from patients problem list. Study phone number: [phone]. Diagnosis changed due to Research Module. Go to Snapshot for study details. Encounter for examination fo r normal comparison and control in clinical research program 07/26/2017 10/28/2021 Overview: DO NOT DELETE [facility] DETECT Study: Project # [id number], Relocation Director: Jordan Umana, MS, MPH. SUMMARY: Goal: [...] contact study staff at ; after hours Relocation Director via the [facility] hospital finishing tunnel operator . - Please contact study team before resolving/deleting from patients problem list. Study phone number: [phone]. Diagnosis changed due to Research Module. Go to Snapshot for study details. Prediabetes 04/11/2017 05/09/2019 Overview: Per Prediabetes protocol #1 documented as of this encounter (statuses as of 09/29/2023) Immunizations Name Administration Dates Next Due COVID-19 [...] 10/16/2023 9:45 AM EDT Office Visit Orthopaedics, [place] [address] [place] [address] Ranjeet Chowdhury Jr., MD [address] [place] [address] 12/22/2023 2:00 PM EDT Office Visit General Internal Medicine [facility] [address] [facility] [place] [address] Yamini Piper MD [address] [facility] [place] [address] 02/01/2024 10:00 AM EST Cardiac Studies Cardiology, [facility] [address] [facility] [place] [address] Jourdan Johnson [facility] [address] [place] [address] Pending Results Name Type Priority Associated Diagnoses Date /Time UPPER ENDOSCOPY, OUTSIDE PROCEDURE Gastro Upper Routine 09/28/2023 Scheduled Procedures Name Priority Associated Diagnoses Date/Ti [...] this encounter Medical Devices Implanted Type Area Sewage Screen Operator Device Identifier Shelf Expiration Date Model / Serial / Lot Plate Lcp Pilon 3.5 7h 240.082 - [id number] Implanted:Qty: 1 on 09/05/2023 by Ranjeet Chowdhury Jr., MD [place] [facility] Right: Pelvis SYNTHES 240.082 / / Hip Head V40 Taper C C 222 0 - [id number] Implanted:Qty: 1 on 09/05/2023 by Ranjeet Chowdhury Jr., MD at [place] [facility] Right: Hip TONI : ORTHOPAEDICS 07/09/2028 6260-4-122 / / [id number] Screw Selftap 3.5x36 204.836 - [id number] Implanted:Qty: 2 on 09/05/2023 by Ranjeet Chowdhury Jr., MD at [place] [facility] Right: Pelvis SYNTHES 204.836 / / Screw Selftap 3.5x20 204.820 - [id number] Implanted:Qty: 2 on 09/05/2023 by Ranjeet Chowdhury Jr., MD at [place] [facility] Right: Pelvis SYNTHES 204.820 / / Implant Hip Acetab Shell 50d - [id number] Implanted:Qty: 1 on 09/05/2023 by Ranjeet Chowdhury Jr., MD at [place] [facility] Right: Hip TONI : ORTHOPAEDICS 11/28/2026 709-04-50D / / [id number] Screw Low Profile 6.5swh87le - [id number] Implanted:Qty: 1 on 09/05/2023 by Ranjeet Chowdhury Jr., MD at [place] [facility] Right: Hip TONI : ORTHOPAEDICS 04/05/2028 4484-0627 / / GDBJ Screw Low Profile 6.3hmj52gk - [id number] Implanted:Qty: 1 on 09/05/2023 by Ranjeet Chowdhury Jr., MD at [place] [facility] Right: Hip TONI : ORTHOPAEDICS 04/03/2028 2988-3845 / / GBCA Hip Liner Mdm Cocr 38 D - [id number] Implanted:Qty: 1 on 09/05/2023 by Ranjeet Chowdhury Jr., MD at [place] [facility] Right: Hip TONI : ORTHOPAEDICS 07/24/2028 626-00-38D / / [id number] Implant Stem Hip Colr Std 2 - [id number] Implanted:Qty: 1 on 09/05/2023 by Ranjeet Chowdhury Jr., MD at [place] [facility] Right: Hip TONI : ORTHOPAEDICS 03/13/2027 6812-1064 / / [id number] Mdm X3 Inser Liner 22x44 - [id number] Implanted:Qty: 1 on 09/05/2023 by Ranjeet Chowdhury Jr., MD at [place] [facility] Right: Hip TONI : ORTHOPAEDICS 09/15/2027 7236-2-244 / / [id number] documented as of this encounter Advance Directives [...] Agen t (per Health Care Power of Cash Manager document) Care Teams User Experience Developer Relationship Specialty Start Date End Date Yamini Piper MD [address] [place] [address] PCP - General Internal Medicine 05/03/18 documented as of this encounter
--- OUTSIDE RECORDS SUMMARY | 2023-10-11 05:33 | External Medical Summary ---
Author Name Unknown Address Unknown Organization K01:[facility] [address] [place] [address] Laboratory Report Ordering Provider Test Date Status JOVITA HUGHES 10/02/2023 06:47:00 Final Observation Date Value Abnormality Reference (Units ) Status Phosphate 10/02/2023 06:47:00 2.9 2.5-4.8 (m g/dL) Final Performing Location [facility] - [address] [place] [address]
--- OUTSIDE RECORDS SUMMARY | 2023-10-11 05:33 | External Medical Summary ---
Author Name Unknown Address Unknown Organization K01:[facility] [place] [address] [place] [address] Laboratory Report Ordering Provider Test Date Status CHU ORTEGA 10/01/2023 04:48:00 Final Observation Date Value Abnormality Reference (Units ) Status Albumin 10/01/2023 04:48:00 2.9 Below low normal 3.8-5.0 (g/dL) Final AST (Aspartate aminotransferase) 10/01/2023 04:48:00 20 10-35 (U/L) Final Alk Phos 10/01/2023 04:48:00 89 35-130 (U/L) Final ALT (Alanine aminotransferase) 10/01/2023 04:48:00 14 10-35 (U/L) Final Bilirubin, Total 10/01/2023 04:48:00 0.5 <=1.2 (mg/dL) Final Bilirubin, Direct 10/01/2023 04:48:00 <0.2 0.0-0.3 (mg/dL) Final Protein 10/01/2023 04:48:00 4.7 Below low normal 6.0-8.3 (g/dL) Final Performing Location [facility] [place] [address] [place] [address]
--- OUTSIDE RECORDS SUMMARY | 2023-10-11 05:33 | External Medical Summary ---
Author Name Unknown Address Unknown Organization K[facility] [address] [place] [address] Laboratory Report Ordering Provider Test Date Status CHU ORTEGA 09/30/2023 05:30:00 Final Observation Date Value Abnormality Reference (Units ) Status Magnesium 09/30/2023 05:30:00 2.3 1.5-2.6 (m g/dL) Final Performing Location [facility] - [address] [place] [address]
--- OUTSIDE RECORDS SUMMARY | 2023-10-11 05:33 | External Medical Summary ---
Author Name Unknown Address Unknown Organization K01:[facility]ATORY [facility] [place] - [address] [place] [address] Laboratory Report Ordering Provider Test Date Status CHU ORTEGA 10/02/2023 06:47:00 Final Observation Date Value Abnormality Reference (Units ) Status BUN 10/02/2023 06:47:00 13 6-20 (mg/dL) Final Creatinine 10/02/2023 06:47:00 0.6 0.5-1.0 (mg/dL) Final Glomerular filtration rate/1.73 sq M.predicted [Volume Rate/Area] in Serum, Plasma or Blood by Creatinine-based formula (CKD-EPI) 10/02/2023 06:47:00 >90 >=60 (mL/min) Final eGFR is calculated based on the CKD-EPI 2020 equation. Sodium 10/02/2023 06:47:00 134 Below low normal 135 -146 (mmol/L) Final Potassium 10/02/2023 06:47:00 3.6 3.5-5.1 (m mol/L) Final Cl 10/02/2023 06:47:00 104 98-107 (mm ol/L) Final CO2 10/02/2023 06:47:00 16 Below low normal 22- 32 (mmol/L) Final Anion gap 10/02/2023 06:47:00 14 7-15 (mmol /L) Final Glucose 10/02/2023 06:47:00 71 70-120 (mg /dL) Final Calcium 10/02/2023 06:47:00 7.7 Below low normal 8.4 -10.2 (mg/dL) Final Performing Location LABORATORY [facility] [place] - [address] [place] [address]
--- OUTSIDE RECORDS SUMMARY | 2023-10-11 05:33 | External Medical Summary ---
Author Name Unknown Address Unknown Organization K01:LABORATORY [facility] [place] - [address] [place] [address] Laboratory Report Ordering Provider Test Date Status CHU ORTEGA 09/30/2023 11:22:00 Final Observation Date Value Abnormality Reference (Units ) Status WBC, Total 09/30/2023 11:22:00 7.77 4.00-10.80 (K/uL) Final RBC 09/30/2023 11:22:00 2.96 3.85-5.15 (M/uL) Final Hemoglobin 09/30/2023 11:22:00 8.8 Below low normal 12.0-15.3 (g/dL) Final HCT 09/30/2023 11:22:00 27.1 Below low normal 36.0-45.2 (%) Final MCV 09/30/2023 11:22:00 91.6 81.5-97.5 (fL) Final MCH 09/30/2023 11:22:00 29.7 27.0-34.0 (pg) Final MCHC 09/30/2023 11:22:00 32.5 32.0-36.0 (g/dL) Final RDW 09/30/2023 11:22:00 20.9 11.5-15.5 (%) Final Platelets 09/30/2023 11:22:00 113 Below low normal 140-400 (K/uL) Final MPV 09/30/2023 11:22:00 10.3 6.6-11.1 (fL) Final Nucleated erythrocytes/100 leukocytes [Ratio] in Blood by Automated count 09/30/2023 11:22:00 0 <=0 (/100 WBCs) Final Performing Location LABORATORY [facility] [place] - [address] [place] [address]
--- OUTSIDE RECORDS SUMMARY | 2023-10-11 05:33 | External Medical Summary ---
Author Name Unknown Address Unknown Organization [facility] [address] [place] [address] Laboratory Report Ordering Provider Test Date Status CHU ORTEGA 09/30/2023 05:30:00 Final Observation Date Value Abnormality Reference (Units ) Status Phosphate 09/30/2023 05:30:00 3.5 2.5-4.8 (m g/dL) Final Performing Location [facility] - [address] [place] [address]
--- OUTSIDE RECORDS SUMMARY | 2023-10-11 05:33 | External Medical Summary ---
Author Name Unknown Address Unknown Organization K01:[facility]ORY [facility] [place] - [address] [place] [address] Laboratory Report Ordering Provider Test Date Status CORINA MCNULTY 10/01/2023 21:01:00 Final Observation Date Value Abnormality Reference (Units ) Status WBC, Total 10/01/2023 21:01:00 6.75 4.00-10.80 (K/uL) Final RBC 10/01/2023 21:01:00 2.59 3.85-5.15 (M/uL) Final Hemoglobin 10/01/2023 21:01:00 7.9 Below low normal 12.0-15.3 (g/dL) Final HCT 10/01/2023 21:01:00 24.5 Below low normal 36.0-45.2 (%) Final MCV 10/01/2023 21:01:00 94.6 81.5-97.5 (fL) Final MCH 10/01/2023 21:01:00 30.5 27.0-34.0 (pg) Final MCHC 10/01/2023 21:01:00 32.2 32.0-36.0 (g/dL) Final RDW 10/01/2023 21:01:00 21.6 11.5-15.5 (%) Final Platelets 10/01/2023 21:01:00 117 Below low normal 140-400 (K/uL) Final MPV 10/01/2023 21:01:00 10.1 6.6-11.1 (fL) Final Nucleated erythrocytes/100 leukocytes [Ratio] in Blood by Automated count 10/01/2023 21:01:00 0 <=0 (/100 WBCs) Final Performing Location LAB[facility]ORY [facility] [place] - [address] [place] [address]
--- OUTSIDE RECORDS SUMMARY | 2023-10-11 05:33 | External Medical Summary ---
Author Name Unknown Address Unknown Organization K01:[facility] [place] [address] [place] [address] Laboratory Report Ordering Provider Test Date Status CHU 09/29/2023 17:18:00 Final Observation Date Value Abnormality Reference (Units ) Status Lactic Acid 09/29/2023 17:18:00 1.0 0.4-2.0 (mmol/L) Final Performing Location [facility] - [address] [place] [address]
--- OUTSIDE RECORDS SUMMARY | 2023-10-11 05:33 | External Medical Summary ---
Author Name Unknown Address Unknown Organization K01:[facility] [place] [address] [place] [address] Laboratory Report Ordering Provider Test Date Status CHU ORTEGA 10/01/2023 04:48:00 Final Observation Date Value Abnormality Reference (Units ) Status WBC, Total 10/01/2023 04:48:00 5.90 4.00-10.80 (K/uL) Final RBC 10/01/2023 04:48:00 2.72 3.85-5.15 (M/uL) Final Hemoglobin 10/01/2023 04:48:00 8.2 Below low normal 12.0-15.3 (g/dL) Final HCT 10/01/2023 04:48:00 26.0 Below low normal 36.0-45.2 (%) Final MCV 10/01/2023 04:48:00 95.6 81.5-97.5 (fL) Final MCH 10/01/2023 04:48:00 30.1 27.0-34.0 (pg) Final MCHC 10/01/2023 04:48:00 31.5 32.0-36.0 (g/dL) Final RDW 10/01/2023 04:48:00 21.0 11.5-15.5 (%) Final Platelets 10/01/2023 04:48:00 108 Below low normal 140-400 (K/uL) Final MPV 10/01/2023 04:48:00 10.9 6.6-11.1 (fL) Final Nucleated erythrocytes/100 leukocytes [Ratio] in Blood by Automated count 10/01/2023 04:48:00 0 <=0 (/100 WBCs) Final Performing Location [facility] [place] [address] [place] [address]
--- OUTSIDE RECORDS SUMMARY | 2023-10-11 05:33 | External Medical Summary ---
Author Name Unknown Address Unknown Organization K01:[facility]ATORY [facility] [place] - [address] [place] [address] Laboratory Report Ordering Provider Test Date Status CORINA MCNULTY 10/01/2023 07:25:00 Final Observation Date Value Abnormality Reference (Units ) Status WBC, Total 10/01/2023 07:25:00 6.01 4.00-10.80 (K/uL) Final RBC 10/01/2023 07:25:00 2.78 3.85-5.15 (M/uL) Final Hemoglobin 10/01/2023 07:25:00 8.5 Below low normal 12.0-15.3 (g/dL) Final HCT 10/01/2023 07:25:00 26.0 Below low normal 36.0-45.2 (%) Final MCV 10/01/2023 07:25:00 93.5 81.5-97.5 (fL) Final MCH 10/01/2023 07:25:00 30.6 27.0-34.0 (pg) Final MCHC 10/01/2023 07:25:00 32.7 32.0-36.0 (g/dL) Final RDW 10/01/2023 07:25:00 21.0 11.5-15.5 (%) Final Platelets 10/01/2023 07:25:00 111 Below low normal 140-400 (K/uL) Final MPV 10/01/2023 07:25:00 10.1 6.6-11.1 (fL) Final Nucleated erythrocytes/100 leukocytes [Ratio] in Blood by Automated count 10/01/2023 07:25:00 0 <=0 (/100 WBCs) Final Performing Location LABORATORY [facility] [place] - [address] [place] [address]
--- OUTSIDE RECORDS SUMMARY | 2023-10-11 05:34 | External Medical Summary | Summary of Care ---
Author Name Unknown Organization [facility] Address [address] [place] [address] Phone [phone] Care Team Providers Care Laminator Preforms Name Role Phone Yamini Piper MD Primary Care Provider [phone] Reason for Visit * Reason Comments Retrieval Encounter Details Date Type Department Care Team (Late st Contact Info) Description 09/29/2023 2:35 AM EDT Documentation [facility] [address] [place] [address] 1, [employer] [address] [place], [place] [id number] GI bleed* Allergies Active Allergy Reactions Criticality [...] research program 07/26/2017 09/30/2019 Overview: DO NOT [facility] DETECT Study: Project # [id number], Manufacturing Supervisor 2Nd Shift: Eric Magana, PhD. SUMMARY: Goal: Establish test [...] contact study staff at ; after hours Manufacturing Supervisor 2Nd Shift via the [facility] hospital distribution collection operator . Please contact study team before resolving/deleting from patients problem list. Study phone number: [phone]. Diagnosis changed due to Research Module. Go to Snapshot for study details. Encounter for examination fo r normal comparison and control in clinical research program 07/26/2017 10/28/2021 Overview: DO NOT [facility] DETECT Study: Project # [id number], Manufacturing Supervisor 2Nd Shift: Jordan Umana, MS, MPH. SUMMARY: Goal: Establish [...] contact study staff at ; after hours Manufacturing Supervisor 2Nd Shift via the [facility] hospital distribution collection operator . - Please contact study team before resolving/deleting from patients problem list. Study phone number: [phone]. Diagnosis changed due to Research Module. Go [...] Admitted as an Inpatient: yes Certifying Physician/Ordering Service:[facility] ED Physician - Jeffery Romo M.D. [facility] [address] [facility] [place] [address] Point of Health Equipment Servicer (zip code required): [facility] - [address]; [place] [address] Destination (Specify Name/Address): [facility] - [address] [place] [address] Patient transported to nearest facility (capable of mgmt for Pt's condition): YES Total number of Loaded Miles: 65.6 miles Mode of Transport: Air Completed by: CANDIDA Roberts-P documented in this encounter Plan of Treatment Upcoming Encounters Date Type Department Care Team (Late st Contact Info) Description 10/16/2023 9:45 AM EDT Office Visit Orthopaedics, [place] [address] [place] [address] Ranjeet Chowdhury Jr., MD [address] [place] [address] 12/22/2023 2:00 PM EDT Office Visit General Internal Medicine [facility] [address] [facility] [place] [address] Yamini Piper MD [address] [place] [address] 02/01/2024 10:00 AM EST Cardiac Studies Cardiology, [facility] [address] [facility] [place] [address] Jourdan Johnson [address] [place] [address] Scheduled Procedures Name Priority Associated Diagnoses Date/Ti [...] this encounter Medical Devices Implanted Type Area Broadcast Operations Engineer Device Identifier Shelf Expiration Date Model / Serial / Lot Plate Lcp Pilon 3.5 7h 240.082 - [id number] Implanted:Qty: 1 on 09/05/2023 by Ranjeet Chowdhury Jr., [place] [facility] Right: Pelvis SYNTHES 240.082 / / Hip Head V40 Taper C C 222 0 - [id number] Implanted:Qty: 1 on 09/05/2023 by Ranjeet Chowdhury Jr., MD [place] [facility] Right: Hip TONI : ORTHOPAEDICS 07/09/2028 6260-4-122 / / [id number] Screw Selftap 3.5x36 204.836 - [id number] Implanted:Qty: 2 on 09/05/2023 by Ranjeet Chowdhury Jr., MD [place] [facility] Right: Pelvis SYNTHES 204.836 / / Screw Selftap 3.5x20 204.820 - [id number] Implanted:Qty: 2 on 09/05/2023 by Ranjeet Chowdhury Jr., MD [place] [facility] Right: Pelvis SYNTHES 204.820 / / Implant Hip Acetab Shell 50d - [id number] Implanted:Qty: 1 on 09/05/2023 by Ranjeet Chowdhury Jr., MD at [place] [facility] Right: Hip TONI : ORTHOPAEDICS 11/28/2026 709-04-50D / / [id number] Screw Low Profile 6.8glk30sw - [id number] Implanted:Qty: 1 on 09/05/2023 by Ranjeet Chowdhury Jr., MD [place] [facility] [place]: Hip TONI : ORTHOPAEDICS 04/05/2028 4550-2165 / / GDBJ Screw Low Profile 6.5ajq53tg - [id number] Implanted:Qty: 1 on 09/05/2023 by Ranjeet Chowdhury Jr., MD [place] [facility] Right: Hip TONI : ORTHOPAEDICS 04/03/2028 4432-4746 / / GBCA Hip Liner Mdm Cocr 38 D - [id number] Implanted:Qty: 1 on 09/05/2023 by Ranjeet Chowdhury Jr., MD [place] [facility] Right: Hip TONI : ORTHOPAEDICS 07/24/2028 626-00-38D / / [id number] Implant Stem Hip Colr Std 2 - [id number] Implanted:Qty: 1 on 09/05/2023 by Ranjeet Chowdhury Jr., MD [place] [facility] Right: Hip TONI : ORTHOPAEDICS 03/13/2027 2451-1205 / / [id number] Mdm X3 Inser Liner 22x44 - [id number] Implanted:Qty: 1 on 09/05/2023 by Ranjeet Chowdhury Jr., MD [place] [facility] [place]: Hip TONI : ORTHOPAEDICS 09/15/2027 7236-2-244 / / [id number] documented as of this encounter Visit Diagnoses [...] on File Name Relationship Healthcare [facility] Erika Brandt [facility] (per Health Care Power of Manager French document) Care Teams Laminator Preforms Relationship Specialty Start Date End Date Yamini Piper MD [address] [place] [address] PCP - General Internal Medicine 05/03/18 documented as of this encounter
--- OUTSIDE RECORDS SUMMARY | 2023-10-11 05:34 | External Medical Summary ---
Author Name Unknown Address Unknown Organization K01:[facility] [address] [place] [address] Laboratory Report Ordering Provider Test Date Status CHU ORTEGA 09/29/2023 05:01:00 Final Observation Date Value Abnormality Reference (Units ) Status Phosphate 09/29/2023 05:01:00 3.3 2.5-4.8 (m g/dL) Final Performing Location [facility] - [address] [place] [address]
--- OUTSIDE RECORDS SUMMARY | 2023-10-11 05:34 | External Medical Summary ---
Author Name Unknown Address Unknown Organization K01:[facility] [place] [address] [place] [address] Laboratory Report Ordering Provider Test Date Status CHU ORTEGA 09/29/2023 05:32:36 Final Observation Date Value Abnormality Reference (Units ) Status Methicillin resistant Staphylococcus aureus (MRSA) DNA [Presence] in Nose by KAILEE with probe detection 09/29/2023 05:32:36 Negative Negative Final No Methicillin resistant Sta phylococcus aureus detected by PCR (amplified probe). Performing Location [facility] [place] [address] [place] [address]
--- OUTSIDE RECORDS SUMMARY | 2023-10-11 05:34 | External Medical Summary ---
Author Name Unknown Address Unknown Organization K01[facility] [place] [address] [place] [address] Laboratory Report Ordering Provider Test Date Status CHU ORTEGA 09/29/2023 05:01:00 Final Observation Date Value Abnormality Reference (Units ) Status Albumin 09/29/2023 05:01:00 2.9 Below low normal 3.8-5.0 (g/dL) Final AST (Aspartate aminotransferase) 09/29/2023 05:01:00 26 10-35 (U/L) Final Alk Phos 09/29/2023 05:01:00 78 35-130 (U/L) Final ALT (Alanine aminotransferase) 09/29/2023 05:01:00 27 10-35 (U/L) Final Bilirubin, Total 09/29/2023 05:01:00 0.6 <=1.2 (mg/dL) Final Bilirubin, Direct 09/29/2023 05:01:00 0.2 0.0-0.3 (mg/dL) Final Protein 09/29/2023 05:01:00 4.5 Below low normal 6.0-8.3 (g/dL) Final Performing Location [facility] [place] [address] [place] [address]
--- OUTSIDE RECORDS SUMMARY | 2023-10-11 05:34 | External Medical Summary ---
Author Name Unknown Address Unknown Organization K01[facility] [place] [address] [place] [address] Laboratory Report Ordering Provider Test Date Status CHU ORTEGA 09/29/2023 05:01:00 Final Observation Date Value Abnormality Reference (Units ) Status Clot formation [Time] in Blood by Thromboelastography 09/29/2023 05:01:00 4.2 2.5-8.3 (minutes) Final Clot strength in Blood by Thromboelastography 09/29/2023 05:01:00 1.8 0.5-3.7 (minutes) Final Clot angle in Blood by Thromboelastography 09/29/2023 05:01:00 66.2 46.8-78.4 (degrees) Final Maximum clot firmness [Length] in Blood by Thromboelastography 09/29/2023 05:01:00 62.6 50.6-72.5 (mm) Final Coagulation index in Blood b y Thromboelastography 09/29/2023 05:01:00 1.5 -3.0-3.0 Final Clot Lysis [Length fraction] in Blood by Thromboelastography --30 minutes post maximum clot amplitude 09/29/2023 05:01:00 0.0 0.0-7.5 (%) Final This is an appended report. These results have been appended to a previously preliminary verified report. Performing Location [facility] [place] [address] [facility] [place] [address]
--- OUTSIDE RECORDS SUMMARY | 2023-10-11 05:34 | External Medical Summary ---
Author Name Unknown Address Unknown Organization [id number]:LABORATORY [facility] [place] - [address] [place] [address] Laboratory Report Ordering Provider Test Date Status CHU ORTEGA 09/29/2023 11:38:00 Final Observation Date Value Abnormality Reference (Units ) Status WBC, Total 09/29/2023 11:38:00 6.94 4.00-10.80 (K/uL) Final RBC 09/29/2023 11:38:00 2.79 3.85-5.15 (M/uL) Final Hemoglobin 09/29/2023 11:38:00 8.2 Below low normal 12.0-15.3 (g/dL) Final HCT 09/29/2023 11:38:00 24.9 Below low normal 36.0-45.2 (%) Final MCV 09/29/2023 11:38:00 89.2 81.5-97.5 (fL) Final MCH 09/29/2023 11:38:00 29.4 27.0-34.0 (pg) Final MCHC 09/29/2023 11:38:00 32.9 32.0-36.0 (g/dL) Final RDW 09/29/2023 11:38:00 21.1 11.5-15.5 (%) Final Platelets 09/29/2023 11:38:00 101 Below low normal 140-400 (K/uL) Final MPV 09/29/2023 11:38:00 10.2 6.6-11.1 (fL) Final Nucleated erythrocytes/100 leukocytes [Ratio] in Blood by Automated count 09/29/2023 11:38:00 0 <=0 (/100 WBCs) Final Performing Location LABORATORY [facility] [place] - [address] [place] [address]
--- OUTSIDE RECORDS SUMMARY | 2023-10-11 05:34 | External Medical Summary ---
Author Name Unknown Address Unknown Organization [id number]:LABORATORY [facility] [place] B LOOD BANK - [address] [place] [address] Laboratory Report Ordering Provider Test Date Status CHU ORTEGA 09/29/2023 05:00:00 Final Observation Date Value Abnormality Reference (Units ) Status RED BLOOD CELL ANTIBODY IDENTIFICATION 09/29/2023 05:00:00 Anti-Jka Final Performing Location LABORATORY [facility] [place] BLOOD BANK - [address] [place] [address]
--- OUTSIDE RECORDS SUMMARY | 2023-10-11 05:34 | External Medical Summary ---
Author Name Unknown Address Unknown Organization [id number]:LAB[facility]ATORY [facility] [place] - [address] [place] [address] Laboratory Report Ordering Provider Test Date Status CHU ORTEGA 09/29/2023 05:01:00 Final Anticoagulation may affect t esting. Refer to [employer] Test Catalog for a list of effects. Observation Date Value Abnormality Reference (Units ) Status aPTT panel - Platelet poor plasma 09/29/2023 05:01:00 26 21-38 (seconds) Final Performing Location LABORATORY [facility] [place] - [address] [place] [address]
--- OUTSIDE RECORDS SUMMARY | 2023-10-11 05:34 | External Medical Summary ---
Author Name Unknown Address Unknown Organization [id number]:[place] [place] [facility] [address] [facility] [address] Laboratory Report Ordering Provider Test Date Status DEMETRI VYAS 09/29/2023 05:00:00 Final Observation Date Value Abnormality Reference (Units) Status Blood group antibody investigation [Interpretation] in Plasma or RBC 09/29/2023 05:00:00 Findings: Final Blood group antibody investigation [Interpretation] in Plasma or RBC 09/29/2023 05:00:00 Final Blood group antibody investigation [Interpretation] in Plasma or RBC 09/29/2023 05:00:00 Anti-Jk(a) Final Blood group antibody investigation [Interpretation] in Plasma or RBC 09/29/2023 05:00:00 Final Blood group antibody investigation [Interpretation] in Plasma or RBC 09/29/2023 05:00:00 Interpretation: Final Blood group antibody investigation [Interpretation] in Plasma or RBC 09/29/2023 05:00:00 The patient is a 78 year old female with ABO/RH type of O positive. 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 Antibody to Jk(a)-antigen can result from alloimmunization from transfusion or . These findings place the patient at risk for hemolytic transfusion reaction. Crossmatch compatible Jk(a)-antigen-negative RBCs should be given if transfusion is necessary, approximately 10% of blood donors will be compatible. Final Performing Location [facility] [place] [address] [facility] [address]
--- OUTSIDE RECORDS SUMMARY | 2023-10-11 05:34 | External Medical Summary ---
Author Name Unknown Address Unknown Organization [id number]:LABORATORY [facility] - [address] [place] [address] Laboratory Report Ordering Provider Test Date Status CHU ORTEGA 09/29/2023 05:01:00 Final Observation Date Value Abnormality Reference (Units ) Status Calcium.ionized [Moles/volume] in Serum or Plasma by Ion-selective membrane electrode (ISE) 09/29/2023 05:01:00 1.16 1.13-1.32 (mmol/L) Final This test was developed and its performance characteristics dtermined by [employer]. It has not been cleared or approved by the [place] Food and Drug Administration Performing Location LABORATORY [place] [address] [place] [address]
--- OUTSIDE RECORDS SUMMARY | 2023-10-11 05:34 | External Medical Summary ---
Author Name Unknown Address Unknown Organization [id number]:LABORATORY [facility] - [address] [place] [address] Laboratory Report Ordering Provider Test Date Status CHU ORTEGA 09/29/2023 05:01:00 Final Observation Date Value Abnormality Reference (Units ) Status Magnesium 09/29/2023 05:01:00 1.9 1.5-2.6 (m g/dL) Final Performing Location LABORATORY [facility] - [address] [place] [address]
--- OUTSIDE RECORDS SUMMARY | 2023-10-11 05:34 | External Medical Summary ---
Author Name Unknown Address Unknown Organization [id number]:[place] [place] [address] [place] [address] Laboratory Report Ordering Provider Test Date Status CHU ORTEGA 09/29/2023 05:01:00 Final Observation Date Value Abnormality Reference (Units ) Status WBC, Total 09/29/2023 05:01:00 7.56 4.00-10.80 (K/uL) Final RBC 09/29/2023 05:01:00 2.69 3.85-5.15 (M/uL) Final Hemoglobin 09/29/2023 05:01:00 8.1 Below low normal 12.0-15.3 (g/dL) Final HCT 09/29/2023 05:01:00 24.2 Below low normal 36.0-45.2 (%) Final MCV 09/29/2023 05:01:00 90.0 81.5-97.5 (fL) Final MCH 09/29/2023 05:01:00 30.1 27.0-34.0 (pg) Final MCHC 09/29/2023 05:01:00 33.5 32.0-36.0 (g/dL) Final RDW 09/29/2023 05:01:00 20.3 11.5-15.5 (%) Final Platelets 09/29/2023 05:01:00 100 Below low normal 140-400 (K/uL) Final MPV 09/29/2023 05:01:00 10.1 6.6-11.1 (fL) Final Nucleated erythrocytes/100 leukocytes [Ratio] in Blood by Automated count 09/29/2023 05:01:00 0 <=0 (/100 WBCs) Final Performing Location LABORATORY [facility] [place] - [address] [place] [address]
--- OUTSIDE RECORDS SUMMARY | 2023-10-11 05:34 | External Medical Summary ---
Author Name Unknown Address Unknown Organization K01:LABORATORY [facility] - [address] [place] [address] Laboratory Report Ordering Provider Test Date Status CHU ORTEGA 09/29/2023 05:01:00 Final Observation Date Value Abnormality Reference (Units ) Status Fibrinogen 09/29/2023 05:01:00 255 178-467 ( mg/dL) Final Performing Location LABORATORY [facility] - [address] [place] [address]
--- OUTSIDE RECORDS SUMMARY | 2023-10-11 05:34 | External Medical Summary ---
Author Name Unknown Address Unknown Organization [id number]:[place] [facility] [place] [address] [facility] [address] Laboratory Report Ordering Provider Test Date Status CHU ORTEGA 09/29/2023 05:01:00 Final If R time > 20 minutes and n o clot formed suggesting hypocoagulable state or interfering substance (anticoagulation). Consider resubmitting a new sample and/or checking PT/INR, aPTT, fibrinogen, and platelet count. Observation Date Value Abnormality Reference (Units ) Status Clot formation [Time] in Blood by Thromboelastography 09/29/2023 05:01:00 4.2 2.5-8.3 (minutes) Final Clot strength in Blood by Thromboelastography 09/29/2023 05:01:00 1.7 0.5-3.7 (minutes) Final Clot angle in Blood by Thromboelastography 09/29/2023 05:01:00 67.7 46.8-78.4 (degrees) Final Maximum clot firmness [Length] in Blood by Thromboelastography 09/29/2023 05:01:00 61.3 50.6-72.5 (mm) Final Coagulation index in Blood b y Thromboelastography 09/29/2023 05:01:00 1.5 -3.0-3.0 Final Clot Lysis [Length fraction] in Blood by Thromboelastography --30 minutes post maximum clot amplitude 09/29/2023 05:01:00 0.4 0.0-7.5 (%) Final This is an appended report. These results have been appended to a previously preliminary verified report. Performing Location [facility]ORY [facility] [place] - [address] [facility] [address]
--- OUTSIDE RECORDS SUMMARY | 2023-10-11 05:34 | External Medical Summary ---
Author Name Unknown Address Unknown Organization K01:LAB[facility] [place] - [address] [place] [address] Laboratory Report Ordering Provider Test Date Status CHU ORTEGA 09/29/2023 11:38:00 Final Observation Date Value Abnormality Reference (Units ) Status Lactic Acid 09/29/2023 11:38:00 0.9 0.4-2.0 (mmol/L) Final Performing Location LABORATORY [facility] [place] - [address] [place] [address]
--- OUTSIDE RECORDS SUMMARY | 2023-10-11 05:34 | External Medical Summary ---
Author Name Unknown Address Unknown Organization K01:LABORATORY [facility] [place] - [address] [place] [address] Laboratory Report Ordering Provider Test Date Status CHU ORTEGA 09/29/2023 05:01:00 Final Warfarin Therapy
INR: 2 .0-3.0 conventional anticoagulation
INR: 2.5- 3.5 high intensity anticoagulation Observation Date Value Abnormality Reference (Units ) Status PT 09/29/2023 05:01:00 14.4 11.6-15.2 (seconds) Final INR 09/29/2023 05:01:00 1.1 0.8-1.2 Final Performing Location LABORATORY [facility] [place] - [address] [place] [address]
--- OUTSIDE RECORDS SUMMARY | 2023-10-11 05:34 | External Medical Summary ---
Author Name Unknown Address Unknown Organization [id number]:[place] [place] [facility] - [address] [place] [address] Laboratory Report Ordering Provider Test Date Status CHU ORTEGA 09/29/2023 05:00:00 Final Observation Date Value Abnormality Reference (Units ) Status ABO 09/29/2023 05:00:00 O Final RH 09/29/2023 05:00:00 Positive Final RED BLOOD CELL ANTIBODY SCREEN 09/29/2023 05:00:00 Positive Final Antibodies may delay blood a vailability
If RBC use is anticipated, place a prepare order SPECIMEN EXPIRATION DATE 09/29/2023 05:00:00 10/02/2023 23:5 9 Final Performing Location [facility] [place] [facility] - [address] [place] [address]
--- OUTSIDE RECORDS SUMMARY | 2023-10-11 05:34 | External Medical Summary ---
Author Name Unknown Address Unknown Organization K01:LABORATORY [facility] [place] - [address] [place] [address] Laboratory Report Ordering Provider Test Date Status CHU ORTEGA 09/29/2023 05:01:00 Final Observation Date Value Abnormality Reference (Units ) Status BUN 09/29/2023 05:01:00 16 6-20 (mg/dL) Final Creatinine 09/29/2023 05:01:00 0.6 0.5-1.0 (mg/dL) Final Glomerular filtration rate/1.73 sq M.predicted [Volume Rate/Area] in Serum, Plasma or Blood by Creatinine-based formula (CKD-EPI) 09/29/2023 05:01:00 >90 >=60 (mL/min) Final eGFR is calculated based on the CKD-EPI 2020 equation. Sodium 09/29/2023 05:01:00 137 135-146 (m mol/L) Final Potassium 09/29/2023 05:01:00 3.8 3.5-5.1 (m mol/L) Final Cl 09/29/2023 05:01:00 107 98-107 (mm ol/L) Final CO2 09/29/2023 05:01:00 21 Below low normal 22- 32 (mmol/L) Final Anion gap 09/29/2023 05:01:00 9 7-15 (mmol /L) Final Glucose 09/29/2023 05:01:00 106 70-120 (mg /dL) Final Calcium 09/29/2023 05:01:00 7.9 Below low normal 8.4 -10.2 (mg/dL) Final Performing Location LABORATORY [facility] [place] - [address] [place] [address]
--- OUTSIDE RECORDS SUMMARY | 2023-10-11 05:34 | External Medical Summary ---
Author Name Unknown Address Unknown Organization K01:[facility] [place] - [address] [place] [address] Laboratory Report Ordering Provider Test Date Status CHU ORTEGA 09/29/2023 05:00:00 Final Observation Date Value Abnormality Reference (Units ) Status Lactic Acid 09/29/2023 05:00:00 1.0 0.4-2.0 (mmol/L) Final Performing Location LAB[facility]ATORY [facility] [place] - [address] [place] [address]
[2023-10-11] MEDS: HEPARIN SODIUM/DEXTROSE 25,000 UNITS/500 ML BAG IV SCH (05:56)
[2023-10-11 06:15] LABS: Adenovirus F 40/41 PCR Not Detected (NotDetected); Astrovirus PCR Not Detected (NotDetected); Campylobacter PCR Not Detected (NotDetected); Cryptosporidium PCR Not Detected (NotDetected); Cyclospora cayetanensis PCR Not Detected (NotDetected); Entamoeba histolytica PCR Not Detected (NotDetected); Enteroaggregative E.coli(EAEC) Not Detected (NotDetected); Enteropathogenic E.coli (EPEC) Not Detected (NotDetected); Enterotoxigenic E.coli (ETEC) Not Detected (NotDetected); Giardia lamblia PCR Not Detected (NotDetected); Norovirus GI/GII PCR Not Detected (NotDetected); Plesiomonas shigelloides PCR Not Detected (NotDetected); Rotavirus A PCR Not Detected (NotDetected); Salmonella PCR Not Detected (NotDetected); Sapovirus PCR Not Detected (NotDetected); Shiga-like Toxin E.coli (STEC) Not Detected (NotDetected); Shigella/Enteroinvasive E.coli Not Detected (NotDetected); Vibrio cholerae PCR Not Detected (NotDetected); Vibrio species PCR Not Detected (NotDetected); Yersinia enterocolitica PCR Not Detected (NotDetected)
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
[2023-10-11] MEDS: Heparin IV Adult Wt-Based Standard *NO* INITIAL Bolus Protocol IV STA (06:16)
[2023-10-11 06:27] LABS: Cdiff Toxin B Gene (2yr or >) Positive Cdiff Gene (Neg)
[2023-10-11 06:37] LABS: Cdiff Antigen Positive
[2023-10-11 06:39] LABS: Cdiff Toxin A+B Positive Cdiff Toxin (Negative)
[2023-10-11] MEDS: CHERRY SYRUP 5 ML UDP PO STA (07:24)
[2023-10-11] MEDS: VANCOMYCIN HCL 250 MG/5 ML SOLN PO STA (07:24)
--- NOTE | 2023-10-11 09:19 | Electrocardiogram Report ---
Test Reason : Blood Pressure : */* mmHG Vent. Rate : 96 BPM Atrial Rate : 96 BPM P-R Int : 146 ms QRS Dur : 92 ms QT Int : 352 ms P-R-T Axes : 69 19 48 degrees QTcB Int : 444 ms Normal sinus rhythm Incomplete right bundle branch block Cannot rule out Anteroseptal infarct Abnormal ECG When compared with ECG of 27-Sep-2023 16:22, Anteroseptal infarct is now Present Confirmed by Pacheco Lindsey ([id number]) on 10/11/2023 9:19:26 AM Referred By: REFERRED SELF Confirmed By: Pacheco Lindsey
[2023-10-11] MEDS ORDERED: NITROGLYCERIN SL 0.4 MG/TAB TAB SL PRN (10:56)
[2023-10-11] MEDS ORDERED: ONDANSETRON INJ 2 MG/ML 2 ML VIAL IV PRN (10:56)
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
[2023-10-11 11:38] LABS: Hematocrit (blood only) 28.4 % (37.0-47.0); Hemoglobin 9.1 g/dl (12.0-16.0); Mean Corpuscular Hemoglobin 31.2 pg (25.0-34.0); Mean Corpuscular Volume 97.3 fL (80.0-100.0); Platelet Count 233 K/uL (130-400); RDW Coefficient of Variation 20.1 % (11.5-14.5); RDW Standard Deviation 72.4 fL (36.4-46.3); Red Blood Count 2.92 M/uL (4.20-5.40); White Blood Count 13.13 K/ul (4.8-10.8)
[2023-10-11 11:53] LABS: BUN Creatinine Ratio 16.4 (10-20); Calcium 8.4 mg/dl (8.6-10.3); Creatinine Clr Calc Pharmacy 63.9 ml/min; Est GFR (African American) 101.3 ml/min; Est GFR (Non-African American) 87.4 ml/min; Magnesium 1.9 mg/dl (1.7-2.4); Potassium 3.3 mmol/L (3.5-5.1)
[2023-10-11 12:20] LABS: Anisocytosis Present; Basophils # (auto) 0.03 K/uL (0.00-0.20); Basophils % (auto) 0.2 %; Immature Granulocytes # (auto) 0.06 K/uL (0.01-0.20); Immature Granulocytes % (auto) 0.5 %; Lymphocytes # (auto) 0.12 K/uL (1.20-3.40); Lymphocytes % (auto) 0.9 %; Monocytes # (auto) 0.47 K/uL (0.11-0.59); Monocytes % (auto) 3.6 %; Neutrophils # (auto) 12.45 K/uL (1.40-6.50); Neutrophils % (auto) 94.8 %
--- NOTE | 2023-10-11 13:21 | Consultation ---
Date of Consultation October 11, 2023 Assessment & Plan (1) Acute deep vein thrombosis (DVT): Pt with BLE DVT and recent hx of GI bleed. Currently on heparin drip. Hgb stable. No overt signs of active bleeding presently. Recommend continue AC. If significant bleeding occurs, would reconsider for IVC filter. Pt and daughter understand and are agreeable. Please call if needed. DVT location: lower extremity History of Present Illness Reason for Consultation: DVT, hx GI bleed Attending Physician: Lesly Kim MD History of Present Illness 78 yo f with hx HTN, hyperlipidemia, hypothyroidism, pacemaker, recent femur fx and surgical repair, recent GI bleed, seen in consultation today for DVT in BLE. Pt without previous hx of DVT. Likely provoked in light of her recent femur fx and significant hospital stay for GI bleed and extended recovery. Pt noted ed germán of RLE since shortly after surgery. Was on lovenox and asa after surgery, developed GI bleed requiring endoscopic eval and treatment at [place] 2 weeks ago. No bleeding since per pt. Admits diarrhea. Denies DONALDSON, fever, chest pain, SOB, abd pain, N/V, rest pain, claudication, other complaints. BLE venous US demonstrates BLE DVT. Allergies Allergy/AdvReac Type Severity Reaction Status Date / Time No Known Drug Allergies Allergy Unknown . Verified 09/27/23 22:40 Home Medications Medication Instructions Recorded Confirmed Type atorvastatin 40 mg tablet 40 mg PO DAILY 10/11/23 10/11/23 History baclofen 10 mg tablet 10 mg PO HS PRN Pain 10/11/23 10/11/23 History ferrous sulfate 325 mg (65 mg 325 mg PO BID 10/11/23 10/11/23 History iron) tablet (FeroSul) levothyroxine 75 mcg tablet 75 mcg PO DAILY 10/11/23 10/11/23 History omeprazole 40 mg capsule,delayed 40 mg PO BID 10/11/23 10/11/23 History release Patient History Medical History Osteoarthritis Migraine "flashing headaches" Syncope Asthma as a child/no problems now Surgical History History of open reduction and internal fixation (ORIF) procedure left tib/fib History of colonoscopy History of tooth extraction History of tonsillectomy History of cataract surgery rt eye Family History Mother Family history of diabetes mellitus Brother Family history of diabetes mellitus Other Family hx of colon cancer Social History Smoking Status: Never smoker Second Hand Exposure: No; Do You Dip or Chew Tobacco: No; Hx Alcohol Use: No Hx Substance Use: No Preferred Language: Lithuanian Communication Ability: Effective Frontend Engineer Required: No Beliefs That Will Affect Care: None Current Living Situation: Personal Care Facility Current Living Situation Comment: resides in personal care Feels Safe at Home: Yes Assistive Devices: Walker Review of Systems Review of Systems: All systems reviewed & are unremarkable except as noted in HPI & below Physical Exam Constitutional: WD/WN, vitals as above Neck: trachea midline Respiratory: normal respiratory effort, lungs clear to auscultation Auscultation: + diminished lung sounds Cardiovascular: Rate/Rhythm: regular rate and regular rhythm Vessels: posterior tibial pulses present and dorsalis pedis pulses present Extremities: normal capillary refill and + edema Gastrointestinal (Abdomen): Inspection/Auscultation: abdomen normal to inspection and normal bowel sounds Percussion/Palpation: abdomen soft Musculoskeletal: no cyanosis or clubbing, extremities motor strength 5/5 Skin: no rashes, warm and dry Neurologic: moves all extremities and awake Psychiatric: A+Ox3, euthymic affect Results & Data Vital Signs (Past 12 Hours) Vital Signs Temp Pulse Pulse Resp BP BP Pulse Ox 10/11/23 11:03 37.6 C H 100 H 18 103/63 97 10/11/23 10:00 108 H 20 132/66 97 10/11/23 08:00 37.1 C 105 H 20 126/64 97 10/11/23 06:58 105 H 20 135/68 98 10/11/23 06:50 105 H 10/11/23 06:00 100 H 20 132/68 99 10/11/23 05:10 87 L 10/11/23 05:00 86 22 143/64 H 100 10/11/23 04:50 37.2 C 10/11/23 04:12 96 H 20 132/67 98 10/11/23 02:57 98 10/11/23 02:52 90 10/11/23 02:45 98 10/11/23 02:45 36.7 C 93 H 18 144/94 H 98 10/11/23 02:43 91 H 18 98 O2 Del Method O2 Flow Rate 10/11/23 11:03 Room Air 2 10/11/23 10:00 10/11/23 08:00 10/11/23 06:58 Room Air 10/11/23 06:50 10/11/23 06:00 Nasal Cannula 2 10/11/23 05:10 Room Air, Nasal Cannula 10/11/23 05:00 Room Air 10/11/23 04:50 10/11/23 04:12 Room Air 10/11/23 02:57 Room Air 10/11/23 02:52 10/11/23 02:45 Room Air 10/11/23 02:45 Room Air 10/11/23 02:43 Room Air
[2023-10-11] MEDS: SODIUM CHLORIDE 0.9% 1,000 ML IV SCH (13:42)
[2023-10-11] MEDS: ATORVASTATIN 40 MG TAB PO SCH (13:43)
[2023-10-11] MEDS: CHERRY SYRUP 5 ML UDP PO SCH (13:43)
[2023-10-11] MEDS: LEVOTHYROXINE SODIUM 75 MCG TABLET PO SCH (13:43)
[2023-10-11] MEDS: VANCOMYCIN HCL 125 MG/2.5ML SOLN PO SCH (13:48)
[2023-10-11] MEDS: PNEUMOCOCCAL VACCINE (PCV20) 20-VAL CONJ-DIP CRM/PF 0.5 ML SYR IM ONE (14:02)
[2023-10-11] MEDS: FERROUS SULFATE 325 MG TAB PO SCH (16:54)
--- NOTE | 2023-10-11 16:57 | Communication Note ---
Date of Service: October 11, 2023 78-year-old female with significant recent past medical history of duodenal ulcer bleeding was admitted on this morning with diarrhea and black stool and a lso bilateral calf pain. Noted to have bilateral DVTs and also C. difficile colitis. She was evaluated by GI and also vascular and will continue with her current medications including PPI. And oral vancomycin. Heparin drip has been on hold. possible EGD tomorrow. Full progress note will be done tomorrow. Dr Марина Kim
[2023-10-11] MEDS: PANTOprazole 40 MG TAB PO SCH (20:08)
[2023-10-12 00:46] LABS: Appearance Urine Cloudy (Clear); Bilirubin Urine 1+ (Negative); Blood Urine Negative (Negative); Color Urine Dark Yellow; Glucose Urine UA Negative (Negative); Ketones Urine Negative (Negative); Leukocyte Esterase Urine Negative (Negative); Nitrite Urine Negative (Negative); Protein Urine 1+ (Negative); Specific Gravity Urine 1.036 (1.000-1.030); Urobilinogen Urine Negative (Negative); WBC Urine Automated 21-50 /hpf (0-5); pH Urine 5.5 (4.5-7.5)
[2023-10-12 01:00] LABS: Bacteria Urine Automated 1+ (None Seen); Mucus Urine Present (None Prsent); RBC Urine Automated 0-2 /hpf (0-2)
[2023-10-12] MEDS ORDERED: Nursing to Pharmacy Communication SCH (04:00)
[2023-10-12 07:57] LABS: Basophils # (auto) 0.03 K/uL (0.00-0.20); Basophils % (auto) 0.4 %; Eosinophils # (auto) 0.03 K/uL (0.00-0.50); Eosinophils % (auto) 0.4 %; Hematocrit (blood only) 26.5 % (37.0-47.0); Hemoglobin 8.2 g/dl (12.0-16.0); Immature Granulocytes # (auto) 0.03 K/uL (0.01-0.20); Immature Granulocytes % (auto) 0.4 %; Lymphocytes # (auto) 0.24 K/uL (1.20-3.40); Lymphocytes % (auto) 3.3 %; Mean Corpuscular Hemoglobin 30.6 pg (25.0-34.0); Mean Corpuscular Hgb Conc 30.9 g/dL (32.0-36.0); Mean Corpuscular Volume 98.9 fL (80.0-100.0); Mean Platelet Volume 10.1 fL (9.4-12.4); Monocytes # (auto) 0.44 K/uL (0.11-0.59); Monocytes % (auto) 6.1 %; Neutrophils % (auto) 89.4 %; Platelet Count 211 K/uL (130-400); RDW Coefficient of Variation 20.2 % (11.5-14.5); RDW Standard Deviation 73.9 fL (36.4-46.3); Red Blood Count 2.68 M/uL (4.20-5.40); White Blood Count 7.27 K/ul (4.8-10.8)
[2023-10-12 08:26] LABS: Creatinine Clr Calc Pharmacy 66.3 ml/min; Est GFR (African American) 99.8 ml/min; Est GFR (Non-African American) 86.1 ml/min; Potassium 3.2 mmol/L (3.5-5.1)
[2023-10-12 08:37] LABS: Polychromasia 1+; Tear Drop Cells 1+
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
[2023-10-12] MEDS: POTASSIUM CHLORIDE / WTR 10 MEQ/100 ML PLCT IV SCH (09:38)
[2023-10-12 11:50] LABS: Basophils # (auto) 0.03 K/uL (0.00-0.20); Basophils % (auto) 0.5 %; Eosinophils # (auto) 0.03 K/uL (0.00-0.50); Eosinophils % (auto) 0.5 %; Hematocrit (blood only) 27.1 % (37.0-47.0); Hemoglobin 8.4 g/dl (12.0-16.0); Immature Granulocytes # (auto) 0.03 K/uL (0.01-0.20); Immature Granulocytes % (auto) 0.5 %; Lymphocytes # (auto) 0.27 K/uL (1.20-3.40); Lymphocytes % (auto) 4.2 %; Mean Corpuscular Hemoglobin 30.8 pg (25.0-34.0); Mean Corpuscular Volume 99.3 fL (80.0-100.0); Mean Platelet Volume 9.8 fL (9.4-12.4); Monocytes # (auto) 0.32 K/uL (0.11-0.59); Neutrophils # (auto) 5.75 K/uL (1.40-6.50); Neutrophils % (auto) 89.3 %; Platelet Count 201 K/uL (130-400); RDW Coefficient of Variation 19.9 % (11.5-14.5); RDW Standard Deviation 72.7 fL (36.4-46.3); Red Blood Count 2.73 M/uL (4.20-5.40); White Blood Count 6.43 K/ul (4.8-10.8)
[2023-10-12 12:03] LABS: ANTI-Xa, UFH(UnfractionatedHep < 0.10 IU/ml (0.3-0.7); Partial Thromboplastin Ratio 1.1; Partial Thromboplastin Time 29 Seconds (21-31); Prothrombin Time 10.6 Seconds (9.0-12.0)
[2023-10-12] MEDS: PANTOprazole 40 MG in SYRINGE 0 ML IV SCH (12:45)
[2023-10-12] MEDS: HEPARIN SODIUM/DEXTROSE 25,000 UNITS/500 ML BAG IV SCH (14:09)
[2023-10-12] MEDS: Heparin IV Adult Wt-Based Low-Dose *NO* INITIAL Bolus Protocol IV STA (14:11)
[2023-10-12 20:25] LABS: ANTI-Xa, UFH(UnfractionatedHep 0.18 IU/ml (0.3-0.7)
[2023-10-12] MEDS: ACETAMINOPHEN 325 MG TAB PO PRN (20:42)
[2023-10-12] MEDS: HEPARIN SOD (PORCINE) 1000 UNIT/ML IV ONE (21:00)
--- NOTE | 2023-10-12 21:26 | Communication Note ---
Date of Service: October 12, 2023
[2023-10-12] MEDS: KETOROLAC TROMETHAMINE 15 MG/ML VIAL IV ONE (21:34)
[2023-10-12] MEDS: OPTIRAY 320 100ml IV ONE (22:30)
--- NOTE | 2023-10-13 00:30 | CT Scan Report ---
Exam(s): CT ABDOMEN + PELVIS With Contrast IV Amt: 92 cc opti 320 EXAM: CT Abdomen and Pelvis With Intravenous Contrast CLINICAL HISTORY: Reason for exam: abd pain, iv heparin. TECHNIQUE: Axial computed tomography images of the abdomen and pelvis with intravenous contrast. CTDI is 16.29 mGy and DLP is 810.59 mGy-cm. Automated exposure control was utilized for the study. A dose lowering technique was utilized adhering to the principles of ALARA. CONTRAST: Patient received 92 cc opti 320 of IV contrast COMPARISON: No relevant prior studies available. FINDINGS: Lung bases: Unremarkable. No mass. No consolidation. ABDOMEN: Liver: Unremarkable. No mass. Gallbladder and bile ducts: Unremarkable. No calcified stones. No ductal dilation. Pancreas: Unremarkable. No mass. No ductal dilation. Spleen: Unremarkable. No splenomegaly. Adrenals: Unremarkable. No mass. Kidneys and ureters: Unremarkable. No solid mass. No hydronephrosis. Stomach and bowel: Moderate wall thickening of the sigmoid colon, with pericolonic fat stranding, consistent with colitis. Liquid stool in the colon, correlate for diarrheal disease. No obstruction. PELVIS: Appendix: No findings to suggest acute appendicitis. Bladder: Unremarkable. No mass. Reproductive: Unremarkable as visualized. ABDOMEN and PELVIS: Intraperitoneal space: Unremarkable. No free air. No significant fluid collection. Bones/joints: Right hip arthroplasty. Degenerative changes of the spine. No acute fracture. No dislocation. Soft tissues: Unremarkable. Vasculature: Atherosclerotic changes of the aorta. No abdominal aortic aneurysm. Lymph nodes: Unremarkable. No enlarged lymph nodes. Tubes, lines and devices: Pacemaker leads. IMPRESSION: 1. Moderate wall thickening of the sigmoid colon, with pericolonic fat stranding, consistent with colitis. 2. Liquid stool in the colon, correlate for diarrheal disease. Electronically signed by: Joey Sevilla MD 10/13/23 00:29 AM
[2023-10-13 07:42] LABS: ANTI-Xa, UFH(UnfractionatedHep 0.26 IU/ml (0.3-0.7)
[2023-10-13 09:27] LABS: ANTI-Xa, UFH(UnfractionatedHep 0.27 IU/ml (0.3-0.7)
[2023-10-13] MEDS: POTASSIUM CHLORIDE CRTAB 20 MEQ TABCR PO ONE (10:21)
[2023-10-13 13:16] LABS: Calcium 7.7 mg/dl (8.6-10.3); Potassium 3.2 mmol/L (3.5-5.1)
[2023-10-13 13:22] LABS: BUN Creatinine Ratio 16.1 (10-20); Creatinine Clr Calc Pharmacy 75.9 ml/min; Est GFR (African American) 104.2 ml/min; Est GFR (Non-African American) 89.9 ml/min
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
[2023-10-13 15:56] LABS: ANTI-Xa, UFH(UnfractionatedHep 0.25 IU/ml (0.3-0.7)
[2023-10-13] MEDS: POTASSIUM CHLORIDE / WTR 10 MEQ/100 ML PLCT IV SCH (16:08)
[2023-10-13] MEDS: BACLOFEN 10 MG TAB PO PRN (20:14)
[2023-10-14 07:32] LABS: Hematocrit (blood only) 26.4 % (37.0-47.0); Hemoglobin 8.2 g/dl (12.0-16.0); Mean Corpuscular Hemoglobin 29.9 pg (25.0-34.0); Mean Corpuscular Hgb Conc 31.1 g/dL (32.0-36.0); Mean Corpuscular Volume 96.4 fL (80.0-100.0); Mean Platelet Volume 9.9 fL (9.4-12.4); Platelet Count 182 K/uL (130-400); RDW Standard Deviation 67.7 fL (36.4-46.3); Red Blood Count 2.74 M/uL (4.20-5.40); White Blood Count 2.93 K/ul (4.8-10.8)
[2023-10-14 07:56] LABS: BUN Creatinine Ratio 7.4 (10-20); Calcium 7.9 mg/dl (8.6-10.3); Creatinine Clr Calc Pharmacy 78.8 ml/min; Est GFR (African American) 105.5 ml/min; Magnesium 1.9 mg/dl (1.7-2.4); Potassium 3.1 mmol/L (3.5-5.1)
[2023-10-14] MEDS: POTASSIUM CHLORIDE CRTAB 20 MEQ TABCR PO ONE (09:23)
[2023-10-14] MEDS: POTASSIUM CHLORIDE / WTR 10 MEQ/100 ML PLCT IV SCH (09:46)
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
[2023-10-15 06:20] LABS: Hematocrit (blood only) 24.3 % (37.0-47.0); Hemoglobin 7.8 g/dl (12.0-16.0); Mean Corpuscular Hemoglobin 30.7 pg (25.0-34.0); Mean Corpuscular Hgb Conc 32.1 g/dL (32.0-36.0); Mean Corpuscular Volume 95.7 fL (80.0-100.0); Mean Platelet Volume 10.3 fL (9.4-12.4); Platelet Count 181 K/uL (130-400); RDW Coefficient of Variation 18.9 % (11.5-14.5); RDW Standard Deviation 67.5 fL (36.4-46.3); Red Blood Count 2.54 M/uL (4.20-5.40); White Blood Count 3.79 K/ul (4.8-10.8)
[2023-10-15 06:38] LABS: BUN Creatinine Ratio 9.1 (10-20); Calcium 7.9 mg/dl (8.6-10.3); Creatinine Clr Calc Pharmacy 77.4 ml/min; Est GFR (African American) 104.9 ml/min; Est GFR (Non-African American) 90.5 ml/min; Magnesium 1.9 mg/dl (1.7-2.4); Potassium 3.5 mmol/L (3.5-5.1)
[2023-10-15] MEDS: POTASSIUM CHLORIDE CRTAB 20 MEQ TABCR PO STA (11:14)
[2023-10-15] MEDS: FUROSEMIDE 40 MG/4 ML VIAL IV ONE (11:14)
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
[2023-10-16 06:54] LABS: BUN Creatinine Ratio 10.4 (10-20); Calcium 8.5 mg/dl (8.6-10.3); Creatinine Clr Calc Pharmacy 64.3 ml/min; Est GFR (African American) 98.3 ml/min; Est GFR (Non-African American) 84.8 ml/min; Magnesium 1.9 mg/dl (1.7-2.4)
[2023-10-16 07:05] LABS: ANTI-Xa, UFH(UnfractionatedHep 0.42 IU/ml (0.3-0.7)
[2023-10-16 07:38] VITALS: O2SAT 97
--- NOTE | 2023-10-16 09:52 | Ultrasound Report ---
US venous doppler LE RT CLINICAL HISTORY: R/O DVT TECHNIQUE: Right lower extremity real-time compression venous ultrasound with Color Doppler imaging. Utilizing real-time ultrasonic imaging multiple real time high-resolution ultrasonic images with comp ression and noncompression maneuvers of the deep venous system in addition to color doppler imaging w ere performed from the common femoral vein through the proximal calf veins. COMPARISON: None available at the time of this dictation. FINDINGS/IMPRESSION: Nonocclusive deep venous thrombus is in the mid-distal portion of the right popliteal vein. Occlusive thrombosis in the proximal aspect of one of the paired proximal posterior tibial veins. Nonocclusive thrombus is seen in the proximal to midportion of one of the paired peroneal veins. No superficial v enous thrombosis is identified. ACT 112: Negative or not required by law. Electronically signed by: Scott Li M.D. 10/16/2023 9:50 AM
[2023-10-16 09:56] LABS: Hematocrit (blood only) 27.3 % (37.0-47.0); Hemoglobin 8.8 g/dl (12.0-16.0); Mean Corpuscular Hemoglobin 30.3 pg (25.0-34.0); Mean Corpuscular Hgb Conc 32.2 g/dL (32.0-36.0); Mean Corpuscular Volume 94.1 fL (80.0-100.0); Mean Platelet Volume 10.7 fL (9.4-12.4); Platelet Count 213 K/uL (130-400); RDW Coefficient of Variation 18.8 % (11.5-14.5); RDW Standard Deviation 65.3 fL (36.4-46.3); White Blood Count 6.43 K/ul (4.8-10.8)
[2023-10-16] MEDS: APIXABAN 5 MG TABLET PO SCH (10:02)
[2023-10-16 10:24] LABS: Basophils # (auto) 0.05 K/uL (0.00-0.20); Basophils % (auto) 0.8 %; Eosinophils # (auto) 0.23 K/uL (0.00-0.50); Eosinophils % (auto) 3.6 %; Immature Granulocytes # (auto) 0.09 K/uL (0.01-0.20); Immature Granulocytes % (auto) 1.4 %; Lymphocytes % (auto) 20.2 %; Monocytes # (auto) 0.47 K/uL (0.11-0.59); Monocytes % (auto) 7.3 %; Neutrophils # (auto) 4.29 K/uL (1.40-6.50); Neutrophils % (auto) 66.7 %; Ovalocytes 1+; Polychromasia 1+; Tear Drop Cells 1+
[2023-10-16 11:38] VITALS: BP 121/74; PULSE 79; RESP 18; TEMP 97.9
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
== END 2023-10-16 14:14 | DRG 372 ==
LOC: ED 02:39 → SUATTDRO 05:52 → 2W 05:52

== ENCOUNTER 2023-12-09 07:39 | Inpatient (IN) ==
--- NOTE | 2023-12-09 08:09 | Emergency Department Note ---
Impression & Plan C. difficile colitis, Acute lower GI bleeding, Hypokalemia ED Provider Note NAME: HARSHAL BUCK AGE: 78 SEX: F : 1945 ARRIVES VIA: Walk-In INFORMANT: Patient, ED PROVIDER(S): Pacheco Delgadillo DO CHIEF COMPLAINT: Lower GI bleeding HPI: The patient is a 78-year-old female who presented to the emergency department for an evaluation of lower GI bleeding. The patient was seeing over the summer after a fall resulted in a hip fracture. The patient also recently had C. difficile and was treated with vancomycin. She started having return of symptoms with abdominal pain and diarrhea over the last several days. She went to see her doctor again and was tested positive for C. difficile. She was ordered vancomycin but she has not yet started it. She started having worsening pain and blood in her stool today this is why she came to the emergency department for further evaluation. ROS: See above HPI for pertinent positives & negatives. A total of 10 systems reviewed and were otherwise negative. PAST MEDICAL HISTORY: See Below PAST SURGICAL HISTORY: See Below FAMILY HISTORY: See Below SOCIAL HISTORY: See Below HOME MEDICATIONS: See Below ALLERGIES: See Below VITALS: See Below PHYSICAL EXAMINATION: GENERAL: Patient is awake alert in no acute distress patient is resting comfortably and showing no signs of anxiety EYES: The conjunctivae are clear. The pupils are round and reactive. EARS, NOSE, MOUTH AND THROAT: The nose is without any evidence of any deformity. Mucous membranes are moist. Tongue is midline. NECK: The neck is nontender and supple. RESPIRATORY: Normal respiratory effort is noted there is no evidence of wheezing rhonchi or rales CARDIOVASCULAR: Regular rate and rhythm noted there no murmurs rubs or gallops normal S1 normal S2. GASTROINTESTINAL: The abdomen is soft and nondistended. There is diffuse tenderness to palpation but no guarding or rigidity. MUSCULOSKELETAL/EXTREMITIES: There is no evidence of gross deformity full range of motion is noted in the hips and shoulders. SKIN: There is no obvious evidence of any rash. There are no petechiae, pallor or cyanosis noted. NEUROLOGIC: Patient is awake alert and oriented x3 MEDICAL DECISION MAKING: The patient is a 78-year-old female who presented to the emergency department for an evaluation of lower GI bleeding. The patient recently was diagnosed with C. difficile colitis. She started having recurrence of symptoms and had a test as an outpatient was positive for C. difficile colitis. The patient was unable to start the antibiotics as of yet but started having significant lower GI bleeding today. She presented to the emergency department for lower GI bleeding. The patient denies having any nausea or vomiting. Abdominal exam did reveal significant tenderness but not an acute surgical abdomen. I discussed patient's laboratory and radiographic studies with her. She was treated with oral vancomycin as well as potassium replacement. Given the fact that she does take Eliquis I do not feel that she would be a good candidate for outpatient management. For this reason I [facility] have [facility] to evaluate the patient in the emergency department for further management and disposition. Triage Nursing notes reviewed. Prior medical records reviewed Vital Signs: reviewed and remarkable for no significant abnormalities Differential diagnosis: Etiologies such as appendicitis, diverticulitis, obstruction, inflammatory bowel disease, renal colic, PUD, biliary pathology, pancreatitis, mesenteric ischemia, aortic pathology, infections, genitourinary, UTI, perforated viscus, as well as others were entertained. ER treatment provided: See below Diagnostics interpreted by me: ECG: EKG was obtained in the emergency department. My interpretation is normal sinus rhythm at [address] depressions were noted in the inferior and lateral leads. There was no PVCs. This was compared to a tracing from October 11, 2023. No changes were noted. Cardiac Monitoring: An order was placed for continuous cardiac monitoring. The monitor shows a rate of 85 bpm with sinus rhythm. Laboratory studies: As stated above and show below. Imaging studies: See below. Radiographic imaging was reviewed by myself Consultation(s): I discussed this case with Padma who [facility] They will evaluate the patient in the emergency department. Past Med/Surg History Problem List (Updated 12/09/23 @ 10:04 by Pacheco Delgadillo DO) Hypokalemia (Acute) Acute lower GI bleeding (Acute) C. 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 Brasher (device at home checking device) medtronic Near syncope (Acute) Encounter for pre-operative examination Family hx of colon cancer Medical History Osteoarthritis Migraine "flashing headaches" Syncope Asthma as a child/no problems now Surgical History History of open reduction and internal fixation (ORIF) procedure left tib/fib History of colonoscopy History of tooth extraction History of tonsillectomy History of cataract surgery rt eye Family History Mother Family history of diabetes mellitus Brother Family history of diabetes mellitus Other Family hx of colon cancer Social History Smoking Status: Never smoker Second Hand Exposure: No; Do You Dip or Chew Tobacco: No; Hx Alcohol Use: No Hx Substance Use: No Preferred Language: Tamazight Communication Ability: Effective Child Day Care Teacher Required: No Beliefs That Will Affect Care: None Current Living Situation: Personal Care Facility Current Living Situation Comment: resides in personal care Feels Safe at Home: Yes Assistive Devices: Walker Allergies Allergies Allergy/AdvReac Type Severity Reaction Status Date / Time No Known Drug Allergies Allergy Unknown . Verified 09/27/23 22:40 Home Meds Home Medications Medication Instructions Recorded Confirmed atorvastatin 40 mg tablet 40 mg PO DAILY 10/11/23 12/09/23 ferrous sulfate 325 mg (65 mg 325 mg PO BID 10/11/23 10/11/23 iron) tablet (FeroSul) levothyroxine 75 mcg tablet 88 mcg PO DAILY 10/11/23 10/11/23 omeprazole 40 mg capsule,delayed 40 mg PO BID 10/11/23 10/11/23 release apixaban 5 mg tablet (Eliquis) 5 mg PO BID 12/09/23 12/09/23 Previous Rx's Medication Instructions Recorded vancomycin 1,000 mg intravenous 125 mg PO Q6 #28 ea 10/16/23 injection Results & Data (ED) Vital Signs Vital Signs - 24 hr 12/09/23 07:44 12/09/23 08:03 12/09/23 08:08 Temperature 36.6 C Temperature Source Temporal Artery Scan Pulse Rate 87 87 Respiratory Rate 18 18 Respiratory Effort / Characteristics Non-Labored Spontaneous Respiratory Depth Normal Blood Pressure 161/83 H Blood Pressure Mean 109 Blood Pressure Position Sitting Pulse Oximetry 97 96 94 Oxygen Delivery Method Room Air Room Air Room Air Oxygen Flow Rate 0 Sepsis Recent Fever Within 48 Hours No Sepsis New/Unexplained Change in Mental Status No Sepsis Action Taken by Nursing No Action Required 12/09/23 08:10 Temperature Temperature Source Pulse Rate 85 Respiratory Rate Respiratory Effort / Characteristics Respiratory Depth Blood Pressure Blood Pressure Mean Blood Pressure Position Pulse Oximetry Oxygen Delivery Method Oxygen Flow Rate Sepsis Recent Fever Within 48 Hours Sepsis New/Unexplained Change in Mental Status Sepsis Action Taken by Usp Medications Current Medication List: was personally reviewed by me Laboratory Data Attestation: I reviewed the patient's lab results. 12/09/23 08:02 12/09/23 08:02 Lab Results 12/09/23 12/09/23 12/09/23 Range/Units 08:02 08:24 08:32 WBC 6.06 (4.8-10.8) K/ul RBC 3.94 L (4.20-5.40) M/uL Hgb 11.6 L (12.0-16.0) g/dl POC Hgb 11.9 L (12.0-16.0) g/dl Hct 36.1 L (37.0-47.0) % POC Hct 35 L (37-47) % MCV 91.6 (80.0-100.0) fL MCH 29.4 (25.0-34.0) pg MCHC 32.1 (32.0-36.0) g/dL RDW Std Deviation 45.3 (36.4-46.3) fL RDW Coeff of Anitha 13.4 (11.5-14.5) % Plt Count 162 (130-400) K/uL MPV 10.7 (9.4-12.4) fL Immature Gran % (Auto) 0.3 % Neut % (Auto) 76.8 % Lymph % (Auto) 10.4 % Hale % (Auto) 8.1 % Eos % (Auto) 3.6 % Baso % (Auto) 0.8 % Neut # (Auto) 4.65 (1.40-6.50) K/uL Lymph # (Auto) 0.63 L (1.20-3.40) K/uL Hale # (Auto) 0.49 (0.11-0.59) K/uL Eos # (Auto) 0.22 (0.00-0.50) K/uL Baso # (Auto) 0.05 (0.00-0.20) K/uL Immature Gran # (Auto) 0.02 (0.01-0.20) K/uL PT 10.2 (9.0-12.0) Seconds INR 0.9 (0.9-1.1) APTT 27 (21-31) Seconds PTT Ratio 1.0 POC Sodium 141 (135-144) mmol/L Sodium 140 (136-145) mmol/L POC Potassium 2.6 L (3.3-5.0) mmol/L Potassium 2.7 L (3.5-5.1) mmol/L POC Chloride 103 (101-112) mmol/L Chloride 105 (98-107) mmol/L Carbon Dioxide 26 (21-32) mmol/L POC Total CO2 24 (24-31) mmol/L Anion Gap 9 (3-11) POC Anion Gap 18.0 (16-25) mmol/L POC BUN 5 L (7-18) mg/dl BUN 8 (6-23) mg/dl Creatinine 0.64 (0.6-1.2) mg/dl POC Creatinine 0.7 (0.6-1.3) mg/dl Est Cr Clr Drug Dosing 60.9 ml/min eGFR 90.96 BUN/Creatinine Ratio 12.5 (10-20) Glucose 101 H (70-99(Fasting)) mg/dl POC Glucose (other) 103 H (70-99) mg/dl Calcium 8.9 (8.6-10.3) mg/dl POC Ioniz Calcium Meek 1.22 (1.12-1.32) mmol/l Total Bilirubin 0.4 (0.2-1.0) mg/dl AST 19 (13-39) U/L ALT 11 (7-52) U/L Alkaline Phosphatase 91 (34-104) U/L Troponin I High Sens 16.0 H (0-14) pg/ml Total Protein 6.8 (6.0-8.3) gm/dl Albumin 3.9 (3.4-5.0) gm/dl Globulin 2.9 (2.5-4.0) gm/dl Albumin/Globulin Ratio 1.3 (0.9-2) Lipase 10 L (11-82) U/L Urine Color Urine Appearance (Clear) Urine pH (4.5-7.5) Ur Specific [place] (1.000-1.030) Urine Protein (Negative) Urine Glucose (UA) (Negative) Urine Ketones (Negative) Urine Blood (Negative) Urine Nitrite (Negative) Urine Bilirubin (Negative) Urine Urobilinogen (Negative) Ur Leukocyte Esterase (Negative) Blood Type O Positive Antibody Screen POSITIVE A 12/09/23 Range/Units 08:49 WBC (4.8-10.8) K/ul RBC (4.20-5.40) M/uL Hgb (12.0-16.0) g/dl POC Hgb (12.0-16.0) g/dl Hct (37.0-47.0) % POC Hct (37-47) % MCV (80.0-100.0) fL MCH (25.0-34.0) pg MCHC (32.0-36.0) g/dL RDW Std Deviation (36.4-46.3) fL RDW Coeff of Anitha (11.5-14.5) % Plt Count (130-400) K/uL MPV (9.4-12.4) fL Immature Gran % (Auto) % Neut % (Auto) % Lymph % (Auto) % Hale % (Auto) % Eos % (Auto) % Baso % (Auto) % Neut # (Auto) (1.40-6.50) K/uL Lymph # (Auto) (1.20-3.40) K/uL Hale # (Auto) (0.11-0.59) K/uL Eos # (Auto) (0.00-0.50) K/uL Baso # (Auto) (0.00-0.20) K/uL Immature Gran # (Auto) (0.01-0.20) K/uL PT (9.0-12.0) Seconds INR (0.9-1.1) APTT (21-31) Seconds PTT Ratio POC Sodium (135-144) mmol/L Sodium (136-145) mmol/L POC Potassium (3.3-5.0) mmol/L Potassium (3.5-5.1) mmol/L POC Chloride (101-112) mmol/L Chloride (98-107) mmol/L Carbon Dioxide (21-32) mmol/L POC Total CO2 (24-31) mmol/L Anion Gap (3-11) POC Anion Gap (16-25) mmol/L POC BUN (7-18) mg/dl BUN (6-23) mg/dl Creatinine (0.6-1.2) mg/dl POC Creatinine (0.6-1.3) mg/dl Est Cr Clr Drug Dosing ml/min eGFR BUN/Creatinine Ratio (10-20) Glucose (70-99(Fasting)) mg/dl POC Glucose (other) (70-99) mg/dl Calcium (8.6-10.3) mg/dl POC Ioniz Calcium Meek (1.12-1.32) mmol/l Total Bilirubin (0.2-1.0) mg/dl AST (13-39) U/L ALT (7-52) U/L Alkaline Phosphatase (34-104) U/L Troponin I High Sens (0-14) pg/ml Total Protein (6.0-8.3) gm/dl Albumin (3.4-5.0) gm/dl Globulin (2.5-4.0) gm/dl Albumin/Globulin Ratio (0.9-2) Lipase (11-82) U/L Urine Color Yellow Urine Appearance Clear (Clear) Urine pH 6.5 (4.5-7.5) Ur Specific [place] 1.003 (1.000-1.030) Urine Protein Negative (Negative) Urine Glucose (UA) Negative (Negative) Urine Ketones Negative (Negative) Urine Blood Negative (Negative) Urine Nitrite Negative (Negative) Urine Bilirubin Negative (Negative) Urine Urobilinogen Negative (Negative) Ur Leukocyte Esterase Negative (Negative) Blood Type Antibody Screen Administered Medications Discontinued Medications Potassium Chloride (K Edin / Wtr) 10 meq in 100 mls @ 100 mls/hr IV ONE ONE Stop: 12/09/23 09:32 Last Infusion: 12/09/23 10:04 Dose: Infused Documented By: Admin: 12/09/23 08:40 Dose: 100 mls/hr Documented By: MMF Ioversol (Optiray 320 100ml) 94 ml IV ONCE ONE Stop: 12/09/23 08:56 Last Admin: 12/09/23 08:56 Dose: 94 ml Documented By: JAR Potassium Chloride (Potassium Chloride Crtab 20 Meq Tabcr) 20 meq PO NOW STA Stop: 12/09/23 08:34 Last Admin: 12/09/23 08:40 Dose: 20 meq Documented By: SABRINA Imaging Data Attestation: I personally reviewed and interpreted this imaging study as follows: My Impression: CT of the abdomen and pelvis was obtained in the emergency department. My interpretation is no free air or signs of bowel obstruction, final report below. Radiologist's Impression: Abdomen/Pelvis CT 12/09/23 08:[address] WITH IV CONTRAST CT DOSE: 710.97 mGy.cm HISTORY: Acute onset abdominal pain with GI bleed GIB TECHNIQUE: Multiaxial CT images of the abdomen and pelvis were performed following the IV administration of 94 cc of Optiray, A dose lowering technique was utilized adhering to the principles of ALARA. COMPARISON STUDY: 10/12/2023 FINDINGS: Cardiomegaly with partially imaged pacer leads. Low suspicion 4 mm solid nodule in the basal left lower lobe on image 20 series 3. No pneumatosis or pneumoperitoneum. Unremarkable spleen, pancreas, gallbladder and adrenal glands. There are a few small scattered hypodensities of the liver suggestive of probable cysts. Patency of the hepatic and portal veins. Urinary bladder wall thickening with partial distention. Mild bilateral hydronephrosis, right greater than left. No urolith. Atherosclerosis of the aorta and branch vessels. No lymphadenopathy identified. No small bowel obstruction. There is mucosal hyperemia of circumferential wall thickening involving the majority of the colon and rectum, most pronounced in the rectum and sigmoid. Normal appendix. Similar findings were also present on the prior study. Scattered colonic air-fluid levels. Degenerative changes of the spine, pelvis and left hip. Right hip arthroplasty. IMPRESSION: 1. Findings compatible with a nonspecific oneill-proctocolitis, likely infectious or inflammatory. Similar findings were also present on the 10/12/2023 study.. 2. No bowel obstruction or pneumoperitoneum. 3. Mild bilateral hydronephrosis with findings suspicious for cystitis. 4. No renal or ureteral calculi. ACT 112: Negative or not required by law. The above report was generated using voice recognition software. It may contain grammatical, syntax or spelling errors. Electronically signed by: Davis Winkler M.D. 12/09/2023 9:46 AM Chest X-Ray 12/09/23 08:03 XR chest 1V portable HISTORY: 78 years-old Female GIB acute chest abdominal pain with GI bleed COMPARISON: 823 TECHNIQUE: AP view of the chest FINDINGS: Cardiac silhouette is normal in size. The left subclavian pacer. No pneumothorax, pleural effusion or airspace consolidation. The bones of the chest appear grossly intact. IMPRESSION: No acute process. ACT 112: Negative or not required by law. The above report was generated using voice recognition software. It may contain grammatical, syntax or spelling errors. Electronically signed by: Davis Winkler M.D. 12/09/2023 8:44 AM Discharge Plan Visit Data Chief Complaint: Bleeding Stated Complaint: BLOOD IN TOLIET- DIAG WITH C-DIFF ED Provider: Pacheco Delgadillo Discharge Problem: C. difficile colitis, Acute lower GI bleeding, Hypokalemia Patient Disposition: Being Evaluated by Hospitalist Forms Stand Alone Forms: My [facility] Prescriptions Prescriptions: No Action atorvastatin 40 mg tablet 40 mg PO DAILY omeprazole 40 mg capsule,delayed release(DR/EC) 40 mg PO BID levothyroxine 75 mcg tablet 88 mcg PO DAILY ferrous sulfate [FeroSul] 325 mg (65 mg iron) tablet 325 mg PO BID vancomycin 1,000 mg Recon Soln 125 mg PO Q6 Qty: 28 0RF Eliquis 5 mg tablet 5 mg PO BID Referrals Referrals: Yamnii Piper MD [Primary Care Provider] -
[2023-12-09] MEDS: POTASSIUM CHLORIDE CRTAB 20 MEQ TABCR PO STA ×2 (08:40→11:51)
[2023-12-09] MEDS: POTASSIUM CHLORIDE / WTR 10 MEQ/100 ML PLCT IV ONE (08:40)
[2023-12-09 08:45] LABS: iSTAT Creatinine 0.7 mg/dl (0.6-1.3); iSTAT Hemoglobin 11.9 g/dl (12.0-16.0); iSTAT Ionized Calcium 1.22 mmol/l (1.12-1.32); iSTAT Potassium 2.6 mmol/L (3.3-5.0)
--- NOTE | 2023-12-09 08:45 | XRay Report ---
XR chest 1V portable HISTORY: 78 years-old Female GIB acute chest abdominal pain with GI bleed COMPARISON: 823 TECHNIQUE: AP view of the chest FINDINGS: Cardiac silhouette is normal in size. The left subclavian pacer. No pneumothorax, pleural effusion or airspace consolidation. The bones of the chest appear grossly intact. IMPRESSION: No acute process. ACT 112: Negative or not required by law. The above report was generated using voice recognition software. It may contain grammatical, syntax o r spelling errors. Electronically signed by: Davis Winkler M.D. 12/09/2023 8:44 AM
[2023-12-09 08:49] LABS: Basophils # (auto) 0.05 K/uL (0.00-0.20); Basophils % (auto) 0.8 %; Eosinophils # (auto) 0.22 K/uL (0.00-0.50); Eosinophils % (auto) 3.6 %; Hematocrit (blood only) 36.1 % (37.0-47.0); Hemoglobin 11.6 g/dl (12.0-16.0); Immature Granulocytes # (auto) 0.02 K/uL (0.01-0.20); Immature Granulocytes % (auto) 0.3 %; Lymphocytes # (auto) 0.63 K/uL (1.20-3.40); Lymphocytes % (auto) 10.4 %; Mean Corpuscular Hemoglobin 29.4 pg (25.0-34.0); Mean Corpuscular Hgb Conc 32.1 g/dL (32.0-36.0); Mean Corpuscular Volume 91.6 fL (80.0-100.0); Mean Platelet Volume 10.7 fL (9.4-12.4); Monocytes # (auto) 0.49 K/uL (0.11-0.59); Monocytes % (auto) 8.1 %; Neutrophils # (auto) 4.65 K/uL (1.40-6.50); Neutrophils % (auto) 76.8 %; Platelet Count 162 K/uL (130-400); RDW Coefficient of Variation 13.4 % (11.5-14.5); RDW Standard Deviation 45.3 fL (36.4-46.3); Red Blood Count 3.94 M/uL (4.20-5.40); White Blood Count 6.06 K/ul (4.8-10.8)
[2023-12-09] MEDS: OPTIRAY 320 100ml IV ONE (08:56)
[2023-12-09 08:58] LABS: Appearance Urine Clear (Clear); Bilirubin Urine Negative (Negative); Blood Urine Negative (Negative); Color Urine Yellow; Glucose Urine UA Negative (Negative); Ketones Urine Negative (Negative); Leukocyte Esterase Urine Negative (Negative); Nitrite Urine Negative (Negative); Protein Urine Negative (Negative); Specific Gravity Urine 1.003 (1.000-1.030); Urobilinogen Urine Negative (Negative); pH Urine 6.5 (4.5-7.5)
[2023-12-09 09:06] LABS: Albumin Globulin Ratio 1.3 (0.9-2); Albumin Level 3.9 gm/dl (3.4-5.0); BUN Creatinine Ratio 12.5 (10-20); Bilirubin,Total 0.4 mg/dl (0.2-1.0); Calcium 8.9 mg/dl (8.6-10.3); Creatinine Clr Calc Pharmacy 60.9 ml/min; Globulin 2.9 gm/dl (2.5-4.0); Potassium 2.7 mmol/L (3.5-5.1); Total Protein 6.8 gm/dl (6.0-8.3)
[2023-12-09 09:18] LABS: INR 0.9 (0.9-1.1); Partial Thromboplastin Time 27 Seconds (21-31); Prothrombin Time 10.2 Seconds (9.0-12.0)
--- NOTE | 2023-12-09 09:49 | CT Scan Report ---
ABDOMEN AND PELVIS CT WITH IV CONTRAST CT DOSE: 710.97 mGy.cm HISTORY: Acute onset abdominal pain with GI bleed GIB TECHNIQUE: Multiaxial CT images of the abdomen and pelvis were performed following the IV administrat ion of 94 cc of Optiray, A dose lowering technique was utilized adhering to the principles of ALARA. COMPARISON STUDY: 10/12/2023 FINDINGS: Cardiomegaly with partially imaged pacer leads. Low suspicion 4 mm solid nodule in the basa l left lower lobe on image 20 series 3. No pneumatosis or pneumoperitoneum. Unremarkable spleen, panc reas, gallbladder and adrenal glands. There are a few small scattered hypodensities of the liver sugg estive of probable cysts. Patency of the hepatic and portal veins. Urinary bladder wall thickening with partial distention. Mild bilateral hydronephrosis, right greater than left. No urolith. Atherosclerosis of the aorta and branch vessels. No lymphadenopathy identifie d. No small bowel obstruction. There is mucosal hyperemia of circumferential wall thickening involvin g the majority of the colon and rectum, most pronounced in the rectum and sigmoid. Normal appendix. S imilar findings were also present on the prior study. Scattered colonic air-fluid levels. Degenerati ve changes of the spine, pelvis and left hip. Right hip arthroplasty. IMPRESSION: 1. Findings compatible with a nonspecific oneill-proctocolitis, likely infectious or inflammatory. Simil ar findings were also present on the 10/12/2023 study.. 2. No bowel obstruction or pneumoperitoneum. 3. Mild bilateral hydronephrosis with findings suspicious for cystitis. 4. No renal or ureteral calculi. ACT 112: Negative or not required by law. The above report was generated using voice recognition software. It may contain grammatical, syntax o r spelling errors. Electronically signed by: Davis Winkler M.D. 12/09/2023 9:46 AM
--- OUTSIDE RECORDS SUMMARY | 2023-12-09 09:53 | External Medical Summary | Summary of Care ---
Author Name Unknown Organization [facility] Address [address] [place] [address] Phone [phone] Care Team Providers Care Parking Lot Chauffeur Name Role Phone Yamini Piper MD Primary Care Provider [phone] Reason for Visit * Reason Comments Outpatient Testing Encounter Details Date Type Department Care Team (Late st Contact Info) Description 12/08/2023 9:50 AM EDT Laboratory Laboratory [facility] [address] [place] [address] [facility] Lab Scenery [address] [place] [address] Hyperlipidemia with target LDL less than 100; Prediabetes; Iron deficiency anemia, unspecified iron deficiency anemia type; Memory changes; Acquired hypothyroidism Allergies Active Allergy Reactions Criticality Noted Date Comments Pollen 06/17/2014 Nasal congestion documented as of this encounter (statuses as of 12/08/2023) Medications Medication Sig Dispensed Refills Start Date End Date Status [facility] CALCIUM+D3 SLOW RELEASE 600-40-500 MG-MG-UNIT PO TB24 Take 1 Tab by mouth daily at noon. 05/16/2013 Active Atorvastatin Calcium 40 MG Oral Tablet (Lipitor)Indication s:Hyperlipidemia with target LDL less than 100 TAKE 1 TABLET IN THE MORNING. 90 Tablet 3 06/20/2023 Active Sennosides 8.6 MG Oral Tablet (Senokot) Take 2 Tablets by mouth in the morning. 60 Tablet 09/11/2023 Active Additional Information Patient not taking.Reported on 10/23/2023 Acetaminophen 325 MG Oral Tablet (Tylenol) Take 3 Tablets by mouth every 6 hours. 84 Tablet 1 09/26/2023 Active Docusate Sodium 100 MG Oral Capsule (Colace)Indications :Constipation, unspecified constipation type Take 1 Capsule by mouth in the morning and 1 Capsule before bedtime. 60 Capsule 5 09/27/2023 Active Additional Information Patient not taking.Reported on 10/24/2023 Baclofen 10 MG Oral Tablet (Lioresal)Indicatio ns:Closed nondisplaced fracture of posterior wall of right acetabulum with routine healing, subsequent encounter,Pain and swelling of right knee Take 1 Tablet by mouth at bedtime as needed for Pain. 20 Tablet 09/27/2023 Active Additional Information Patient not taking.Reported on 10/24/2023 Eliquis 5 MG Oral Tablet Take 1 Tablet by mouth in the morning and 1 Tablet before bedtime. 10/16/2023 Active Vitamin 27-0.8 MG Oral TabletIndications:A cute blood loss anemia Take 1 Tablet by mouth daily at noon. 10/24/2023 Active Melatonin ER 5 MG Oral Tablet Extended ReleaseIndications: Other insomnia 1 tab an hour before bedtime 10/24/2023 Active Levothyroxine Sodium 88 MCG Oral Tablet (Levoxyl) Take 1 Tablet by mouth in the morning. (at least 30 min prior to breakfast or other meds). 90 Tablet 11/01/2023 Active Omeprazole 40 MG Oral Capsule Delayed Release (PriLOSEC) Take 1 Capsule by mouth in the morning and 1 Capsule before bedtime. 60 Capsule 5 11/03/2023 Active Vancomycin HCl 125 MG Oral Capsule (Vancocin)Indicatio ns:Clostridium difficile diarrhea Take 1 Capsule by mouth every 6 hours for 14 days. For 7 days 56 Capsule 12/07/2023 12/21/2023 Active Ferrous Sulfate 325 (65 Fe) MG Oral Tablet (Feosol)Indications :Iron deficiency anemia due to chronic blood loss Take 1 Tablet by mouth in the morning. 12/08/2023 Active documented as of this encounter (statuses as of 12/08/2023) Active Problems Problem Noted Date Diagnosed Date Acute deep vein thrombosis ( DVT) of distal vein of both lower extremities 10/24/2023 Duodenal perforation 09/29/2023 Retroperitoneal hematoma 09/26/2023 Closed fracture of head of right femur Anemia due to GI blood loss 09/09/2023 Acute blood loss anemia 09/09/2023 Pedestrian [...] as of this encounter (statuses as of 12/08/2023) Resolved Problems Problem Noted Date Diagnosed Date Resolved Date On peripheral parenteral nutrition (ppn) 10/04/2023 10/05/2023 Gastrointestinal hemorrhage associated with duodenal ulcer 09/29/2023 10/05/2023 Closed displaced fracture of posterior wall of right acetabulum 09/05/2023 10/05/2023 Encounter for examination fo r normal comparison and control in clinical research program 07/26/2017 09/30/2019 Overview: DO NOT DELETE [facility] DETECT Study: Project # [id number], Trip Rider: Eric Magana, PhD. SUMMARY: Goal: Establish test [...] contact study staff at ; after hours Trip Rider via the [facility] 411 directory assistance operator . Please contact study team before resolving/deleting from patients problem list. Study phone number: [phone]. Diagnosis changed due to Research Module. Go to Snapshot for study details. Encounter for examination fo r normal comparison and control in clinical research program 07/26/2017 10/28/2021 Overview: DO NOT DELETE - [facility] Study: Project # [id number], Trip Rider: Jordan Umana, MS, MPH. SUMMARY: Goal: Establish [...] contact study staff at ; after hours Trip Rider via the [facility] hospital 411 directory assistance operator . - Please contact study team before resolving/deleting from patients problem list. Study phone number: [phone]. Diagnosis changed due to Research Module. Go to Snapshot for study details. Prediabetes 04/11/2017 05/09/2019 Overview: Per Prediabetes protocol #1 documented as of this encounter (statuses as of 12/08/2023) Immunizations Name Administration Dates Next Due COVID-19 mRNA, LNP-s, No Pre serve, 2-Dose Series (Moderna) 05/02/2020,03/28/2020 COVID-19, LNP-s, No Preserve , Deny-sucrose, Ages 12+ (Pfizer) 08/31/2021 COVID-19, MRNA-LNP, 23-24, P F, 30 MCG/0.3 mL, 12 YRS AND ABOVE, IM (PFIZER-Comirnaty) 11/18/2023 COVID-19, MRNA-LNP, 23-24, P F, 50 MCG/0.5 mL, 12 YRS AND ABOVE, IM (MODERNA-Spikevax) 12/29/2022 COVID-19, mRNA, LNP-s, PF, B ooster, 100mcg/0.5mg (Moderna) 01/05/2021 Covid-19, Mrna, Lnp-s, Pf, B ivalent, 30 Mcg, IM, 12 yrs and above (Pfizer) 12/24/2021 Pneumococcal Conjugate Vacc, 13 Valent (Prevnar) 09/08/2015 Pneumococcal Polysaccharide PPV23 (Pneumovax) 05/16/2013 Season Influenza, Quad, PF, Adjuvanted, 65+ Yrs, IM (FLUAD) 12/11/2019 Seasonal Influenza Vac., MDV , IM, 0.5 mL (Fluzone) 12/13/2013 Seasonal Influenza Virus Vac cine, Unspecified Formulation 12/15/2022,11/11/2021,11/30/2020,12/10,12/21/2018,12/14/2017,03/09/2017 ,03/03/2016,12/13/2013 Seasonal Influenza, High Dos e, Trivalent, PF, IM (Fluzone HD) 12/21/2018 Seasonal Influenza, PF, 6 M & above, IM , (FluLaval or Fluzone) 03/09/2017 Seasonal Influenza, Quadriva lent Hd (Fluzone Hd) 12/15/2022,11/11/2021,11/30/2020 Seasonal Influenza, Quadriva lent, No Preserve, IM 12/14/2017,03/03/2016,02/02/2015 TD - Tetanus/Diptheria (ADULT) 09/04/2019,2009 TDAP (age 10 and older)(Boostrix) 09/04/2023,09/2019 Zoster Vaccine Recombinant (Shingrix) 11/23/2022 ,06/24/2022 documented [...] Care Team (Late st Contact Info) Description 01/02/2024 9:00 AM EST Office Visit General Internal [facility] [address] [facility] [address] [place], [place] [address] Yamini Piper MD 200 [facility] [place] [address] 02/01/2024 10:00 AM EST Cardiac Studies Cardiology, [facility] [address] [place] [address] [place], Pacer [facility] [address] [place] [address] 02/16/2024 8:00 AM EST Office Visit Gastroenterology, [facility] [address] [place] [address] Cody Bedolla CRNP [address] [place] [address] 03/25/2024 10:30 AM EST Office Visit Orthopaedics, [place] [address] [place] [address] Ranjeet Chowdhury Jr., MD [address] [place] [address] Pending Results Name Type Priority Associated Diagnoses Date /Time COMPREHENSIVE METABOLIC PANEL Lab Routine Hyperlipidemia with target LDL less than 100 12/08/2023 9:54 AM EDT HEMOGLOBIN A1C Lab Routine Prediabetes 12/08/2023 9:54 AM EDT VITAMIN B12 Lab Routine Memory changes 12/08/2023 9:54 AM EDT FOLIC ACID Lab Routine Memory changes 12/08/2023 9:54 AM EDT TSH Lab Routine Acquired hypothyroidism 12/08/2023 9:54 AM EDT Scheduled Procedures Name Priority Associated Diagnoses Date/Ti me COLONOSCOPY FLEXIBLE PROXIMA L DIAGNOSTIC Recall History of colonic polyps Health Maintenance Due Date Last Done Comments Adult Wellness Visit 04/06/2022 04/06/2021 Influenza Vaccine (FLU shot) (#1) 2023 12/15/2022, 12/15/2022, 11/11/2021, Additional history exists HbA1c 06/14/2024 06/15/2023, 11/27, 06/09/2022, Additional history exists Colonoscopy 09/15/2024 09/16/2019, 08/28, 01/17/2014, Additional history exists TSH 10/23/2024 10/24/2023, 08/28, 06/15/2023, Additional history exists Depression Screening 12/07/2024 12/08/2023 DXA Scan 08/13/2027 08/12/2020, 10/2013, 08/05/2013 DTap/Tdap Vaccines (3 - Td or Tdap) 09/03/2033 09/04/2023, 09/04/2019, 09/04/2019, Additional history exists Pneumococcal Vaccine: 65+ Years Completed 09/08/2015, 05/16/2013 RETIRED - COLONOSCOPY-EVERY 5 YRS AGES 18-100 Discontinued 09/16/2019, 09/16/2019, 01/17/2014, Additional history exists Zoster Vaccines Completed 11/23/2022, 06/24/2022 COVID-19 Vaccine Completed 11/18/2023, 03/2022, 12/24/2021, Additional history exists HPV (Gardasil) Vaccine Aged Out No lo nger eligible based on patient's age to complete this topic Hepatitis B Vaccine Aged Out No longe r eligible based on patient's age to complete this topic MENINGOCOCCAL (MENACTRA/MENVEO) Aged Out No longer eligible based on patient's age to complete this topic documented as of this encounter Medical Devices Implanted Type Area Shelf Drier Operator Device Identifier Shelf Expiration Date Model / Serial / Lot Plate Lcp Pilon 3.5 7h 240.082 - [id number] Implanted:Qty: 1 on 09/05/2023 by Ranjeet Chowdhury Jr., MD at [place] [facility] Right: Pelvis SYNTHES 240.082 / / Hip Head V40 Taper C C 222 0 - [id number] Implanted:Qty: 1 on 09/05/2023 by Ranjeet Chowdhury Jr., MD at [facility] Right: Hip TONI : ORTHOPAEDICS 07/09/2028 6260-4-122 / / [id number] Screw Selftap 3.5x36 204.836 - [id number] Implanted:Qty: 2 on 09/05/2023 by Ranjeet Chowdhury Jr., MD at [place] [facility] Right: Pelvis SYNTHES 204.836 / / Screw Selftap 3.5x20 204.820 - [id number] Implanted:Qty: 2 on 09/05/2023 by Ranjeet Chowdhury Jr., MD at [place] [facility] Right: Pelvis SYNTHES 204.820 / / Implant Hip Acetab Shell 50d - [id number] Implanted:Qty: 1 on 09/05/2023 by Ranjeet Chowdhury Jr., MD at [place] [facility] Right: Hip TONI : ORTHOPAEDICS 11/28/2026 709-04-50D / / [id number] Screw Low Profile 6.9ysm70dl - [id number] Implanted:Qty: 1 on 09/05/2023 by Ranjeet Chowdhury Jr., MD at [place] [facility] Right: Hip TONI : ORTHOPAEDICS 04/05/2028 1650-9175 / / [id number] Screw Low Profile 6.8zea28qc - [id number] Implanted:Qty: 1 on 09/05/2023 by Ranjeet Chowdhury Jr., MD at [place] [facility] Right: Hip TONI : ORTHOPAEDICS 04/03/2028 7624-2069 / / GBCA Hip Liner Mdm Cocr 38 D - [id number] Implanted:Qty: 1 on 09/05/2023 by Ranjeet Chowdhury Jr., MD at [place] [facility] Right: Hip TONI : ORTHOPAEDICS 07/24/2028 626-00-38D / / [id number] Implant Stem Hip Colr Std 2 - [id number] Implanted:Qty: 1 on 09/05/2023 by Ranjeet Chowdhury Jr., MD at [place] [facility] Right: Hip TONI : ORTHOPAEDICS 03/13/2027 6452-7264 / / [id number] Mdm X3 Inser Liner 22x44 - [id number] Implanted:Qty: 1 on 09/05/2023 by Trenton Nunez, Ranjeet Drake MD at [place] [facility] Right: Hip TONI : ORTHOPAEDICS 09/15/2027 7236-2-244 / / [id number] documented as of this encounter Procedures Procedure Name Priority Date/Time Associated Diagnosis Comments CBC Routine 12/08/2023 9:54 AM EDT Iron deficiency anemia, unspecified iron deficiency anemia type documented in this encounter Results * CBC (12/08/2023 9:54 AM EDT) WBC 5.48 4.00 - 10.80 K/uL 12/08/2023 10:00 AM EDT [facility] 56-02 RBC 3.99 3.85 - 5.15 M/uL 12/08/2023 10:00 AM EDT [facility] 5602 HGB 12.1 12.0 - 15.3 g/dL 12/08/2023 10:00 AM EDT [facility] 5602 HCT 38.5 36.0 - 45.2 % 12/08/2023 10:00 AM EDT [facility] 56-02 MCV 96.5 81.5 - 97.5 fL 12/08/2023 10:00 AM EDT [facility] 5602 MCH 30.3 27.0 - 34.0 pg 12/08/2023 10:00 AM EDT [facility] 5602 MCHC 31.4 32.0 - 36.0 g/dL 12/08/2023 10:00 AM EDT [facility] 56-02 RDW 14.0 11.5 - 15.5 % 12/08/2023 10:00 AM EDT [facility] 56-02 PLT 152 140 - 400 K/uL 12/08/2023 10:00 AM EDT [facility] 56-02 MPV 10.7 6.6 - 11.1 fL 12/08/2023 10:00 AM EDT [facility] 56-02 Blood Venous blood specimen / Unknown Venipuncture / Unknown 12/08/2023 9:54 AM EDT 12/08/2023 9:54 AM EDT Yamini Mainali MD LAB BLOOD ORDERABLES [facility] 56-02 [address] [place] [address] documented in this encounter Visit Diagnoses Diagnosis Hyperlipidemia with target LDL less than 100 Other and unspecified hyperlipidemia Prediabetes Other abnormal glucose Iron deficiency anemia, unspecified iron deficiency anemia type Memory changes Memory loss Acquired hypothyroidism Unspecified hypothyroidism documented in this encounter Additional Health Concerns Infection Onset Date Last Indicated Resolved Time C. difficile 12/07/2023 12/07/2023 documented as of this encounter Advance Directives [...] Agents on File Name Relationship Healthcare [facility] Erika Rikki Adult Child Health Care Agen t (per Health Care Power of Fresh Meat Grader document) Care Teams Parking Lot Chauffeur Relationship Specialty Start Date End Date [facility]amini Piper MD [address] [facility] [address] PCP - General Internal Medicine 05/03/18 documented as of this encounter
--- OUTSIDE RECORDS SUMMARY | 2023-12-09 09:53 | External Medical Summary | Summary of Care ---
Author Name Unknown Organization [facility] Address [address] [place] [address] Phone [phone] Care Team Providers Care Photogrammetry Airplane Pilot Name Role Phone Yamini Piper MD Primary Care Provider [phone] Reason for Visit * Reason Onset Date Comments Medication Question 12/08/2023 Encounter Details Date Type Department Care Team (Late st Contact Info) Description 12/08/2023 Telephone General Internal Medicine [facility] [address] [facility] [place] [address] Yamini Piper MD [address] [place] [address] Medication Question Allergies Active Allergy Reactions Criticality Noted Date [...] [facility] DET[facility] Study: Project # [id number], Hi Teacher: Eric Magana, PhD. SUMMARY: Goal: Establish [...] contact study staff at ; after hours Hi Teacher via the [facility] telephone operator chief . Please contact study team before resolving/deleting from patients problem list. Study phone number: [phone]. Diagnosis changed due to Research Module. Go to Snapshot for study details. Encounter for examination fo r normal comparison and control in clinical research program 07/26/2017 10/28/2021 Overview: DO NOT DELETE - [facility] Study: Project # [id number], Hi Teacher: Jordan Umana, MS, MPH. SUMMARY: Goal: [...] contact study staff at ; after hours Hi Teacher via the [facility] hospital telephone operator chief . - Please contact study team before resolving/deleting from patients problem list. Study phone number: [phone]. Diagnosis changed due to Research Module. Go [...] encounter Miscellaneous Notes * Telephone Encounter - Russel Self LPN - 12/08/2023 10:56 AM EDT Patient calling today. She is at [employer] to pharmacy picking technician Vancomycin and pharmacist needs Sig clarified. 14 or 7 days? "Sig - Route: Take 1 Capsule by mouth every 6 hours for 14 days. For 7 days" Per order disp 56=14 days [facility] pharmacy made aware. FYI documented in this encounter Plan of Treatment Upcoming Encounters Date Type Department Care Team (Late st Contact Info) Description 01/02/2024 9:00 AM EST Office Visit General Internal Medicine [facility] [address] [facility] [place] [address] Yamini Piper MD [address] [facility] [place] [address] 02/01/2024 10:00 AM EST Cardiac Studies Cardiology, [facility] [address] [place] [address] [place], Pacer Clinic [facility] 132 [place] [address] 02/16/2024 8:00 AM EST Office Visit Gastroenterology, [facility] [address] [place] [address] Cody Bedolla CRNP 132 [place] [address] 03/25/2024 10:30 AM EST Office Visit Orthopaedics, [place] [address] [place] [address] Ranjeet Chowdhury Jr., MD [address] [place] [address] Scheduled Procedures Name Priority Associated Diagnoses Date/Ti [...] this encounter Medical Devices Implanted Type Area Wall Man Device Identifier Shelf Expiration Date Model / Serial / Lot Plate Lcp Pilon 3.5 7h 240.082 - [id number] Implanted:Qty: 1 on 09/05/2023 by Ranjeet Chowdhury Jr., MD at [facility] Right: Pelvis SYNTHES 240.082 / / Hip Head V40 Taper C C 222 0 - [id number] Implanted:Qty: 1 on 09/05/2023 by Ranjeet Chowdhury Jr., MD at OR [facility] Right: Hip TONI : ORTHOPAEDICS 07/09/2028 6260-4-122 / / [id number] Screw Selftap 3.5x36 204.836 - [id number] Implanted:Qty: 2 on 09/05/2023 by Ranjeet Chowdhury Jr., MD at OR [facility] Right: Pelvis SYNTHES 204.836 / / Screw Selftap 3.5x20 204.820 - [id number] Implanted:Qty: 2 on 09/05/2023 by Ranjeet Chowdhury Jr., MD at OR [facility] Right: Pelvis SYNTHES 204.820 / / Implant Hip Acetab Shell 50d - [id number] Implanted:Qty: 1 on 09/05/2023 by Ranjeet Chowdhury Jr., MD at OR [facility] Right: Hip TONI : ORTHOPAEDICS 11/28/2026 709-04-50D / / [id number] Screw Low Profile 6.7kxu00uu - [id number] Implanted:Qty: 1 on 09/05/2023 by Ranjeet Chowdhury Jr., MD at OR [facility] Right: Hip TONI : ORTHOPAEDICS 04/05/2028 4147-1178 / / GDBJ Screw Low Profile 6.6qld01lf - [id number] Implanted:Qty: 1 on 09/05/2023 by Ranjeet Chowdhury Jr., MD at OR [facility] Right: Hip TONI : ORTHOPAEDICS 04/03/2028 2974-1649 / / GBCA Hip Liner Mdm Cocr 38 D - [id number] Implanted:Qty: 1 on 09/05/2023 by Ranjeet Chowdhury Jr., MD at OR [facility] Right: Hip TONI : ORTHOPAEDICS 07/24/2028 626-00-38D / / [id number] Implant Stem Hip Colr Std 2 - [id number] Implanted:Qty: 1 on 09/05/2023 by Ranjeet Chowdhury Jr., MD at OR [facility] Right: Hip TONI : ORTHOPAEDICS 03/13/2027 8217-4199 / / [id number] Mdm X3 Inser Liner 22x44 - [id number] Implanted:Qty: 1 on 09/05/2023 by Ranjeet Chowdhury Jr., MD at OR [facility] Right: Hip TONI : ORTHOPAEDICS 09/15/2027 7236-2-244 / / [id number] documented as of this encounter Additional Health Concerns Infection Onset [...] 4:19 AM 09/29/2023 4:54 AM This order re flects the patients wishes [...] on File Name Relationship Healthcare Agent [facility] Erika Brandt Adult Child Health Care Agen t (per Health Care Power of Public Defender document) Care Teams Photogrammetry Airplane Pilot Relationship Specialty Start Date End Date Yamini Piper MD [address] [facility] [place] [address] PCP - General Internal Medicine 05/03/18 documented as of this encounter
--- OUTSIDE RECORDS SUMMARY | 2023-12-09 09:53 | External Medical Summary | Summary of Care ---
Author Name Unknown Organization [facility] Address [address] [place] [address] Phone [phone] Care Team Providers Care Plant Production Manager Name Role Phone Yamini Piper MD Primary Care Provider [phone] Reason for Visit * Reason Onset Date Comments Medication Question 12/08/2023 Encounter Details Date Type Department Care Team (Late st Contact Info) Description 12/08/2023 Telephone General Internal Medicine [facility] [address] [place] [address] Yamini Piper MD 200 [place] [address] Medication Question Allergies Active Allergy Reactions Criticality [...] on 10/24/2023 Baclofen 10 MG Oral Tablet (Lioresal)Indicati ons:Closed [...] bedtime. 10/16/2023 Active Vitamin 27-0.8 MG Oral TabletIndications: Acute blood loss anemia Take 1 Tablet by [...] before bedtime. 60 Capsule 5 11/03/2023 Active Ferrous Sulfate 325 (65 Fe) MG Oral Tablet (Feosol)Indication s:Iron deficiency anemia due to chronic blood loss Take 1 Tablet by mouth in the morning. 12/08/2023 Active Vancomycin HCl 125 MG Oral Capsule (Vancocin)Indicati ons:Clostridium difficile diarrhea,Clostridi um difficile colitis Take 1 Capsule by mouth every 6 hours. 56 Capsule 12/08/2023 Active Vancomycin HCl 125 MG Oral Capsule (Vancocin)Indicati ons:Clostridium difficile diarrhea Take 1 Capsule by mouth every 6 hours for 14 days. For 7 days 56 Capsule 12/07/2023 4 Discontinue d(Refill) Vancomycin HCl 125 MG Oral Capsule (Vancocin)Indicati ons:Clostridium difficile diarrhea Take 1 Capsule by mouth every 6 hours for 14 days. 56 Capsule 12/08/2023 4 Discontinue d(Refill) documented as of this encounter (statuses as [...] [facility] DETECT Study: Project # [id number], Centerless Grinder Set Up Operator: Eric Magana, PhD. SUMMARY: Goal: Establish [...] contact study staff at ; after hours Centerless Grinder Set Up Operator via the [facility] [place] auxiliary powerplant operator . Please contact study team before resolving/deleting from patients problem list. Study phone number: [phone]. Diagnosis changed due to Research Module. Go to Snapshot for study details. Encounter for examination fo r normal comparison and control in clinical research program 07/26/2017 10/28/2021 Overview: DO NOT DELETE - [facility] Study: Project # [id number], Centerless Grinder Set Up Operator: Jordan Umana, MS, MPH. SUMMARY: Goal: [...] contact study staff at ; after hours Centerless Grinder Set Up Operator via the [facility] auxiliary powerplant operator . - Please contact study team before resolving/deleting from patients problem list. Study phone number: [phone]. Diagnosis changed due to Research Module. Go [...] Date Recorded PHQ Adult Total Score 0 12/08/2023 Hunger Vital Sign Answer Date Recorded Worried [...] as of this encounter Miscellaneous Notes * Addendum Note - Yamini Piper MD - 12/08/2023 5:09 PM EDTAddended by: YAMINI PIPER on: 12/08/2023 05:09 PM Modules accepted: Orders * Telephone Encounter - Yamini Piper MD - 12/08/2023 5:08 PM EDT Sent with clarification and hope that goes through Also forwarding to weekend clinic for follow up * Telephone Encounter - Nadia Somers LPN - 12/08/2023 3:39 PM EDT Pt calling she just spoke with Shae rodríguez, she was advised there is still an issue with RX. I called Shae rodríguez, Chary advised the Vancomycin needs a prior auth. Do you want a prior auth completed or send a different medication? Please advise. * Telephone Encounter - Russel Self LPN - 12/08/2023 10:56 AM EDT Patient calling today. She is at [employer] to machine pecan picker Vancomycin and pharmacist needs Sig clarified. 14 or 7 days? "Sig - Route: Take 1 Capsule by mouth every 6 hours for 14 days. For 7 days" Per order disp 56=14 days [facility] pharmacy made aware. FYI documented in this encounter Plan of Treatment Upcoming Encounters Date Type Department Care Team (Late st Contact Info) Description 01/02/2024 9:00 AM EST Office Visit General Internal Medicine [facility] 200 [facility] [place], [place] [address] Yamini Piper MD 200 [facility] [place] [address] 02/01/2024 10:00 AM EST Cardiac Studies Cardiology, [facility] [address] [place] [address] [place], [facility] [address] [place] [address] 02/16/2024 8:00 AM EST Office Visit Gastroenterology, [facility] [address] [place] [address] Cody Bedolla CRNP [address] [place] [address] 03/25/2024 10:30 AM EST Office Visit Orthopaedics, [place] [address] [place] [address] Trenton Nunez, Ranjeet Drake MD [address] [place] [address] Scheduled Procedures Name Priority Associated Diagnoses Date/Ti [...] Screening 12/07/2024 12/08/2023 DXA Scan 08/13/2027 08/12/2020, 0610/2013, 08/05/2013 DTap/Tdap Vaccines (3 - Td or [...] this encounter Medical Devices Implanted Type Area Van Helper Device Identifier Shelf Expiration Date Model / Serial / Lot Plate Lcp Pilon 3.5 7h 240.082 - [id number] Implanted:Qty: 1 on 09/05/2023 by Ranjeet Chowdhury Jr., [place] [facility] [place]: Pelvis SYNTHES 240.082 / / Hip Head V40 Taper C C 222 0 - [id number] Implanted:Qty: 1 on 09/05/2023 by Ranjeet Chowdhury Jr., [place] [facility] [place]: Hip TONI : ORTHOPAEDICS 07/09/2028 6260-4-122 / / [id number] Screw Selftap 3.5x36 204.836 - [id number] Implanted:Qty: 2 on 09/05/2023 by Ranjeet Chowdhury Jr., [place] [facility] [place]: Pelvis SYNTHES 204.836 / / Screw Selftap 3.5x20 204.820 - [id number] Implanted:Qty: 2 on 09/05/2023 by Ranjeet Chowdhury Jr., [place] [facility] [place]: Pelvis SYNTHES 204.820 / / Implant Hip Acetab Shell 50d - [id number] Implanted:Qty: 1 on 09/05/2023 by Ranjeet Chowdhury Jr., [place] [facility] [place]: Hip TONI : ORTHOPAEDICS 11/28/2026 709-04-50D / / [id number] Screw Low Profile 6.3wzb90nk - [id number] Implanted:Qty: 1 on 09/05/2023 by Ranjeet Chowdhury Jr., [place] [facility] [place]: Hip TONI : ORTHOPAEDICS 04/05/2028 1398-1330 / / GDBJ Screw Low Profile 6.8nld98yy - [id number] Implanted:Qty: 1 on 09/05/2023 by Ranjeet Chowdhury Jr., [place] [facility] [place]: Hip TONI : ORTHOPAEDICS 04/03/2028 5218-0312 / / GBCA Hip Liner Mdm Cocr 38 D - [id number] Implanted:Qty: 1 on 09/05/2023 by Ranjeet Chowdhury Jr., [place] [facility] [place]: Hip TONI : ORTHOPAEDICS 07/24/2028 626-00-38D / / [id number] Implant Stem Hip Colr Std 2 - [id number] Implanted:Qty: 1 on 09/05/2023 by Ranjeet Chowdhury Jr., [place] [facility] [place]: Hip TONI : ORTHOPAEDICS 03/13/2027 8727-0963 / / [id number] Mdm X3 Inser Liner 22x44 - [id number] Implanted:Qty: 1 on 09/05/2023 by Ranjeet Chowdhury Jr., [place] [facility] [place]: Hip TONI : ORTHOPAEDICS 09/15/2027 7236-2-244 / / [id number] documented as of this encounter Visit Diagnoses Diagnosis Clostridium difficile colitis- Primary Intestinal infection due to clostridium difficile Clostridium difficile diarrhea Intestinal infection due to clostridium difficile documented in this encounter Additional Health Concerns [...] Agents on File Name Relationship Healthcare [facility] t (per Health Care Power of Paper Products Machine Operator document) Care Teams Plant Production Manager Relationship Specialty Start Date End Date Yamini Piper MD 200 [facility] [place] [address] PCP - General Internal Medicine 05/03/18 documented as of this encounter
--- OUTSIDE RECORDS SUMMARY | 2023-12-09 09:53 | External Medical Summary | Summary of Care ---
Author Name Unknown Organization [facility] Address [address] [place] [address] Phone [phone] Care Team Providers Care Rehabilitation Specialist Name Role Phone Yamini Piper MD Primary Care Provider [phone] Reason for Visit * Reason Onset Date Comments Medication Question 12/08/2023 Encounter Details Date Type Department Care Team (Late st Contact Info) Description 12/08/2023 Telephone General Internal Medicine [facility] [address] [facility] [place] [address] Yamini Piper MD 200 [place] [address] Medication Question Allergies Active Allergy Reactions Criticality [...] [facility] DET[facility] Study: Project # [id number], Human Resources Department Supervisor: Eric Magana, PhD. SUMMARY: Goal: Establish test [...] contact study staff at ; after hours Human Resources Department Supervisor via the [facility] varnishing machine operator . Please contact study team before resolving/deleting from patients problem list. Study phone number: [phone]. Diagnosis changed due to Research Module. Go to Snapshot for study details. Encounter for examination fo r normal comparison and control in clinical research program 07/26/2017 10/28/2021 Overview: DO NOT DELETE - [facility] Study: Project # [id number], Human Resources Department Supervisor: Jordan Umana, MS, MPH. SUMMARY: Goal: Establish [...] contact study staff at ; after hours Human Resources Department Supervisor via the [facility] hospital varnishing machine operator . - Please contact study team before resolving/deleting from patients problem list. Study phone number: [phone]. Diagnosis changed due to Research Module. Go [...] encounter Miscellaneous Notes * Telephone Encounter - Nadia Somers LPN [...] EDT [facility] today. [facility] pickle solution maker Vancomycin and pharmacist needs Sig clarified. 14 or 7 days? "Sig - Route: Take 1 Capsule by mouth every 6 hours for 14 days. For 7 days" Per order disp 56=14 days [facility] pharmacy made aware. FYI documented in this encounter Plan of Treatment Upcoming Encounters Date Type Department Care Team (Late st Contact Info) Description 01/02/2024 9:00 AM EST Office Visit General Internal Medicine [facility] [address] [facility] [place] [address] Yamini Piper MD 200 [facility] [place] [address] 02/01/2024 10:00 AM EST Cardiac Studies Cardiology, [facility] 132 [facility] [place] [address] [place], Pacer Clinic [facility] 132 [facility] [place] [address] 02/16/2024 8:00 AM EST Office Visit Gastroenterology, [facility] [address] [facility] [place] [address] Cody Bedolla CRNP 132 [facility] [place] [address] 03/25/2024 10:30 AM EST Office Visit Orthopaedics, [place] [address] [place] [address] Ranjeet Chowdhury Jr., MD [address] [place] [address] Scheduled Procedures Name Priority Associated Diagnoses Date/Ti [...] this encounter Medical Devices Implanted Type Area Ranch Manager Device Identifier Shelf Expiration Date Model / Serial / Lot Plate Lcp Pilon 3.5 7h 240.082 - [id number] Implanted:Qty: 1 on 09/05/2023 by Ranjeet Chowdhury Jr., MD at [place] [facility] Right: Pelvis SYNTHES 240.082 / / Hip Head V40 Taper C C 222 0 - [id number] Implanted:Qty: 1 on 09/05/2023 by Ranjeet Chowdhury Jr., MD at [place] [facility] Right: Hip TONI : ORTHOPAEDICS 07/09/2028 6260-4-122 / / [id number] Screw Selftap 3.5x36 204.836 - [id number] Implanted:Qty: 2 on 09/05/2023 by Ranjeet Chowdhury Jr., MD at [place] [facility] Right: Pelvis SYNTHES 204.836 / / Screw Selftap 3.5x20 204.820 - [id number] Implanted:Qty: 2 on 09/05/2023 by Ranjeet Chowdhury Jr., MD at [place] [facility] Right: Pelvis SYNTHES 204.820 / / Implant Hip Acetab Shell 50d - [id number] Implanted:Qty: 1 on 09/05/2023 by Ranjeet Chowdhury Jr., MD at [place] [facility] Right: Hip TONI : ORTHOPAEDICS 11/28/2026 709-04-50D / / [id number] Screw Low Profile 6.1ejv47kd - [id number] Implanted:Qty: 1 on 09/05/2023 by Ranjeet Chowdhury Jr., MD at [place] [facility] Right: Hip TONI : ORTHOPAEDICS 04/05/2028 6866-7190 / / GDBJ Screw Low Profile 6.0iae99ob - [id number] Implanted:Qty: 1 on 09/05/2023 by Ranjeet Chowdhury Jr., MD at [place] [facility] Right: Hip TONI : ORTHOPAEDICS 04/03/2028 1136-8561 / / GBCA Hip Liner Mdm Cocr 38 D - [id number] Implanted:Qty: 1 on 09/05/2023 by Ranjeet Chowdhury Jr., MD at [place] [facility] Right: Hip TONI : ORTHOPAEDICS 07/24/2028 626-00-38D / / [id number] Implant Stem Hip Colr Std 2 - [id number] Implanted:Qty: 1 on 09/05/2023 by Ranjeet Chowdhury Jr., MD at [place] [facility] Right: Hip TONI : ORTHOPAEDICS 03/13/2027 5761-4012 / / [id number] Mdm X3 Inser Liner 22x44 - [id number] Implanted:Qty: 1 on 09/05/2023 by Ranjeet Chowdhury Jr., MD at [place] [facility] Right: Hip TONI : ORTHOPAEDICS 09/15/2027 7236-2-244 / / [id number] documented as of this encounter Additional Health [...] File Name Relationship Healthcare Agent [facility] Communication Erika Brand[facility] Adult Child Health Care Rebekah t (per Health Care Power of Die Casting Machine Operator document) Care Teams Rehabilitation Specialist Relationship Specialty Start Date End Date Yamini Piper MD [address] [place] [address], [place] [address] PCP - General Internal Medicine 05/03/18 documented as of this encounter
--- OUTSIDE RECORDS SUMMARY | 2023-12-09 09:53 | External Medical Summary | Summary of Care ---
Author Name Unknown Organization [facility] Address [address] [place] [address] Phone [phone] Care Team Providers Care Data Acquisition Technician Name Role Phone Yamini Piper MD Primary Care Provider [phone] Reason for Visit * Reason Comments Follow Up Encounter Details Date Type Department Care Team (Late st Contact Info) Description 12/08/2023 9:00 AM EDT Office Visit General Internal Medicine [facility] [place] [address] [facility] [place] [address] [facility] MD [address] [facility] [address] Clostridium difficile diarrhea*; Acquired hypothyroidism; Status post placement of cardiac pacemaker; SSS (sick sinus syndrome) ([facility]); Iron deficiency anemia due to chronic blood loss; Duodenal perforation ([facility]); Impaired fasting glucose; Near syncope; Retroperitoneal hematoma; Prediabetes; Acute deep vein thrombosis (DVT) of distal vein of both lower extremities ([facility]); Closed fracture of head of right femur, sequela Allergies Active Allergy Reactions Criticality Noted Date Comments Pollen 06/17/2014 Nasal congestion documented as of this encounter (statuses as of 12/08/2023) Medications Medication Sig Dispensed Refills Start Date End Date Status [facility] CALCIUM+D3 SLOW RELEASE 600-40-500 MG-MG-UNIT PO TB24 Take 1 Tab by mouth daily at noon. 05/16/2013 Active Atorvastatin Calcium 40 MG Oral Tablet (Lipitor)Indicati ons:Hyperlipidemi a with target LDL less than 100 TAKE [...] Active Docusate Sodium 100 MG Oral Capsule (Colace)Indicatio ns:Constipation, unspecified constipation type Take 1 Capsule by mouth in the morning and 1 Capsule before bedtime. 60 Capsule 5 09/27/2023 Active Additional Information Patient not taking.Reported on 10/24/2023 Baclofen 10 MG Oral Tablet (Lioresal)Indicat ions:Closed nondisplaced fracture of posterior wall of right [...] bedtime. 10/16/2023 Active Vitamin 27-0.8 MG Oral TabletIndications :Acute blood loss anemia Take 1 Tablet by mouth daily at noon. 10/24/2023 Active Melatonin ER 5 MG Oral Tablet Extended ReleaseIndication s:Other insomnia 1 tab an hour before bedtime [...] Active Vancomycin HCl 125 MG Oral Capsule (Vancocin)Indicat ions:Clostridium difficile diarrhea Take 1 Capsule by mouth every 6 hours for 14 days. For 7 days 56 Capsule 12/07/2023 12/21/19 24 Active Ferrous Sulfate 325 (65 Fe) MG Oral Tablet (Feosol)Indicatio ns:Iron deficiency anemia due to chronic blood loss Take 1 Tablet by mouth in the morning. 12/08/2023 Active Ferrous Sulfate 325 (65 Fe) MG Oral Tablet (Feosol)Indicatio ns:Iron deficiency anemia due to chronic blood loss Take 1 Tablet by mouth in the morning and 1 Tablet before bedtime. 60 Tablet 11 09/27/2023 12/08/19 24 Discontinued documented as of this encounter [...] program 07/26/2017 09/30/2019 Overview: DO NOT DELETE [facility] DETECT Study: Project # [id number], Quencher Operator: Eric Magana, PhD. SUMMARY: Goal: Establish [...] contact study staff at ; after hours Quencher Operator via the [facility] water taxi operator . Please contact study team before resolving/deleting from patients problem list. Study phone number: [phone]. Diagnosis changed due to Research Module. Go to Snapshot for study details. Encounter for examination fo r normal comparison and control in clinical research program 07/26/2017 10/28/2021 Overview: DO NOT DELETE - [facility] NATE Study: Project # [id number], Quencher Operator: Jordan Umana, MS, MPH. SUMMARY: Goal: [...] contact study staff at ; after hours Quencher Operator via the [facility] water taxi operator . - Please contact study team before resolving/deleting from patients problem list. Study phone number: [phone]. Diagnosis changed due to Research Module. Go [...] Never Smokeless Tobacco: Never Tobacco Cessation:Counseling Given: No Alcohol Use Standard Drinks/Week Comments No 0 [...] Sign Reading Time Taken Comments Blood Pressure 110/60 12/08/2023 9:01 AM EDT Pulse 88 12/08/2023 9:01 AM EDT Temperature 37.2 C (99 F) 12/08/2023 9:01 AM EDT Respiratory Rate 16 12/08/2023 9:01 AM EDT Oxygen Saturation 97% 12/08/2023 9:01 AM EDT Inhaled Oxygen Concentration - - Weight 62.3 kg (137 lb 6.4 oz) 12/08/2023 9:01 AM EDT Height 160 cm (5' 3") 12/08/2023 9:01 AM EDT Body Mass Index 24.34 12/08/2023 9:01 AM EDT documented in this encounter Functional [...] as of this encounter Progress Notes * Yamini Piper MD - 12/08/2023 9:24 AM EDT Images from the original note were not included. History of Present Illness Beth Brandt is a 78 year old female that presents for Follow Up 78 year old with PMH significant for hypothyroidism, hyperlipidemia, asthma. S/p pacer presents here for evaluation of diarrhea . Duration of illness: 1 week Symptoms present : Diarrhea 4 to 6 times a day and sometimes very violent with cramps and comes suddenly that had accident once or twice. Nausea and vomiting once, low appetite. Feels weak specially in the morning. Lightheaded sometimes while getting up but not too bad compared to baseline Symptoms not present: Fever chills, severe abdominal pain, blood or significant mucus in the stool,recent antibiotic Have same similar thing in past : C diff few months ago Since symptoms started things getting : Same Used anything for this illness: Drinking fluid, had stool tests which showed C diff Other concerns or issues present : Patient had hip surgery and was told to take antibiotics before dental procedure which she has not Nomi. I told her that is not recommendation according to [employer] and would highly discouraged to do so specially in the setting of recurrent C diff Physical Exam Vitals: 12/08/23 0901 Temp: 37.2 C (99 F) Pulse: 88 Resp: 16 SpO2: 97% BP: 110/60 BMI: 24.35 Physical Exam Vitals reviewed. Constitutional: General: She is not in acute distress. Appearance: She is normal weight. She is not ill-appearing. HENT: Head: Normocephalic. Mouth/Throat: Mouth: Mucous membranes are moist. Pharynx: Oropharynx is clear. No oropharyngeal exudate or posterior oropharyngeal erythema. Cardiovascular: Rate and Rhythm: Normal rate and regular rhythm. Heart sounds: Normal heart sounds. No murmur heard. Pulmonary: Effort: Pulmonary effort is normal. No respiratory distress. Breath sounds: Normal breath sounds. No wheezing. Abdominal: General: There is no distension. Palpations: Abdomen is soft. There is no mass. Tenderness: There is abdominal tenderness (Very slight). Musculoskeletal: General: No swelling or tenderness. Cervical back: No rigidity or tenderness. Right lower leg: No edema. Left lower leg: No edema. Lymphadenopathy: Cervical: No cervical adenopathy. Skin: General: Skin is warm. Neurological: Mental Status: She is alert. I have reviewed the following results: Assessment and Plan Clostridium difficile diarrhea Vancomycin already sent to the pharmacy-we will do 2 weeks total this time Precaution and bathroom hygiene discussed Very important to take any antibiotic specially for next six-month and also in future Acquired hypothyroidism - TSH; Future Status post placement of cardiac pacemaker SSS (sick sinus syndrome) ([facility]) Iron deficiency anemia due to chronic blood loss Duodenal perforation ([facility]) Impaired fasting glucose Near syncope Retroperitoneal hematoma Prediabetes Acute deep vein thrombosis (DVT) of distal vein of both lower extremities ([facility]) Closed fracture of head of right femur, sequela Wrap-Up Time: I spent a total of 30-39 minutes (exact time 32 mins) on the date of service in preparation, delivery, and documentation of the care provided to Beth Brandt excluding any time spent in the performance of separately billed services. documented in this encounter Nursing Notes * Claudia Fajardo MED ASSIST - 12/08/2023 9:01 AM EDT Beth Brandt 78 year old female is here for a follow up of c diff. She hadn't received the MyG message yet so she hasn't picked up the antibiotic yet. She would like to hold off on her flu vaccine until December. Medications and HM updated. documented in this encounter Plan of Treatment Upcoming Encounters Date Type Department Care Team (Late st Contact Info) Description 01/02/2024 9:00 AM EST Office Visit General Internal Medicine [facility] [address] [facility] [place] [address] Yamini Piper MD [address] [place] [address] 02/01/2024 10:00 AM EST Cardiac Studies Cardiology, [facility] [address] [place] [address] [facility] [address] [place] [address] 02/16/2024 8:00 AM EST Office Visit Gastroenterology, [facility] [address] [place] [address] Cody Bedolla CRNP [address] [place] [address] 03/25/2024 10:30 AM EST Office Visit Orthopaedics, [facility] [address] [place] [address] Trenton Nunez, Ranjeet Drake MD [address] [place], [place] [id number] Pending Results Name Type Priority Associated Diagnoses Date /Time TSH Lab Routine Acquired hypothyroidism 12/08/2023 9:54 AM EDT Scheduled Orders Name Type Priority Associated Diagnoses Orde r Schedule TSH Lab Routine Acquired hypothyroidism Expected: 12/08/2023 (Approximate), Expires: 12/07/2024 Scheduled Procedures Name Priority Associated Diagnoses Date/Ti [...] Screening 12/07/2024 12/08/2023 DXA Scan 08/13/2027 08/12/2020, 06/0 10/2013, 08/05/2013 DTap/Tdap Vaccines (3 - Td [...] this encounter Medical Devices Implanted Type Area Pipe Coverer And Insulator Device Identifier Shelf Expiration Date Model / Serial / Lot Plate Lcp Pilon 3.5 7h 240.082 - [id number] Implanted:Qty: 1 on 09/05/2023 by Ranjeet Chowdhury Jr., [place] [facility] [place] Pelvis SYNTHES 240.082 / / Hip Head V40 Taper C C 222 0 - [id number] Implanted:Qty: 1 on 09/05/2023 by Ranjeet Chowdhury Jr., [place] [facility] [place] Hip TONI : ORTHOPAEDICS 07/09/2028 6260-4-122 / / [id number] Screw Selftap 3.5x36 204.836 - [id number] Implanted:Qty: 2 on 09/05/2023 by Ranjeet Chowdhury Jr., [place] [facility] [place] Pelvis SYNTHES 204.836 / / Screw Selftap 3.5x20 204.820 - [id number] Implanted:Qty: 2 on 09/05/2023 by Ranjeet Chowdhury Jr., [place] [facility] Pelvis SYNTHES 204.820 / / Implant Hip Acetab Shell 50d - [id number] Implanted:Qty: 1 on 09/05/2023 by Ranjeet Chowdhury Jr., [place] [facility] Hip TONI : ORTHOPAEDICS 11/28/2026 709-04-50D / / [id number] Screw Low Profile 6.0luu98lq - [id number] Implanted:Qty: 1 on 09/05/2023 by Ranjeet Chowdhury Jr., [place] [facility] [place] Hip TONI : ORTHOPAEDICS 04/05/2028 [id number] / / [id number] Screw Low Profile 6.0gpl88is - [id number] Implanted:Qty: 1 on 09/05/2023 by Ranjeet Chowdhury Jr., [place] [facility] [place]: Hip TONI : ORTHOPAEDICS 04/03/2028 [id number] / / GBCA Hip Liner Mdm Cocr 38 D - [id number] Implanted:Qty: 1 on 09/05/2023 by Ranjeet Chowdhury Jr., [place] [facility] [place] Hip TONI : ORTHOPAEDICS 07/24/2028 626-00-38D / / [id number] Implant Stem Hip Colr Std 2 - [id number] Implanted:Qty: 1 on 09/05/2023 by Ranjeet Chowdhury Jr., [place] [facility] [place] Hip TONI : ORTHOPAEDICS 03/13/2027 4292-0385 / / [id number] Mdm X3 Inser Liner 22x44 - [id number] Implanted:Qty: 1 on 09/05/2023 by Ranjeet Chowdhury Jr., [place] [facility] [place]: Hip TONI : ORTHOPAEDICS 09/15/2027 7236-2-244 / / [id number] documented as of this encounter Visit Diagnoses Diagnosis Clostridium difficile diarrhea- Primary Intestinal infection due to clostridium difficile Acquired hypothyroidism Unspecified hypothyroidism Status post placement of cardiac pacemaker Cardiac pacemaker in situ SSS (sick sinus syndrome) (HCC) Sinoatrial node dysfunction 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 deficiency anemia secondary to blood loss (chronic) Duodenal perforation (HCC) Other specified disorder of stomach and duodenum Impaired fasting glucose Near syncope Syncope and collapse Retroperitoneal hematoma Hemorrhage, unspecified Prediabetes Other abnormal glucose Acute deep vein thrombosis (DVT) of distal vein of both lower extremities ([facility]) Closed fracture of head of right femur, sequela documented in this encounter Additional Health Concerns [...] Agen t (per Health Care Power of Retail Management Keyholder document) Care Teams Data Acquisition Technician Relationship Specialty Start Date End Date Yamini Piper MD [address] [place] [address] PCP - General Internal Medicine 05/03/18 documented as of this encounter
--- OUTSIDE RECORDS SUMMARY | 2023-12-09 09:53 | External Medical Summary ---
Author Name Unknown Address Unknown Organization K01:[facility] [place] [address] [place] [address] Laboratory Report Ordering Provider Test Date Status JUANA CAMPBELL 12/08/2023 09:54:48 Final Observation Date Value Abnormality Reference (Units ) Status Folic Acid 12/08/2023 09:54:48 >20.0 >4.5 (ng/ mL) Final Performing Location [facility] - [address] [place] [address]
--- OUTSIDE RECORDS SUMMARY | 2023-12-09 09:54 | External Medical Summary | Summary of Care ---
Author Name Unknown Organization [facility] Address [address] [place] [address] Phone [phone] Care Team Providers Care Leno Sewer Name Role Phone Yamini Piper MD Primary Care Provider [phone] Reason for Visit * Reason Onset Date Comments Advice 11/09/2023 Encounter Details Date Type Department Care Team (Late st Contact Info) Description 11/09/2023 Telephone General Internal Medicine [facility] [address] [facility] [place] [id number] Yamini Piper MD [address] [place] [address] Advice Allergies Active Allergy Reactions Criticality Noted Date Comments Pollen 06/17/2014 Nasal congestion documented as of this encounter (statuses as of 11/11/2023) Medications Medication Sig Dispensed Refills Start Date [...] 6 hours. 84 Tablet 1 09/26/2023 Active Ferrous Sulfate 325 (65 Fe) MG [...] before bedtime. 60 Capsule 5 11/03/2023 Active documented as of this encounter (statuses as of 11/11/2023) Active Problems Problem Noted Date Diagnosed Date [...] as of this encounter (statuses as of 11/11/2023) Resolved Problems Problem Noted Date Diagnosed Date Resolved Date On peripheral parenteral nutrition (ppn) 10/04/2023 10/05/2023 Gastrointestinal hemorrhage associated with duodenal ulcer 09/29/2023 10/05/2023 Closed displaced fracture of posterior wall of right acetabulum 09/05/2023 10/05/2023 Encounter for examination fo r normal comparison and control in clinical research program 07/26/2017 09/30/2019 Overview: DO NOT DELETE [facility] DETECT Study: Project # [id number], Junior Mechanical Engineer: Eric Magana, PhD. SUMMARY: Goal: Establish [...] contact study staff at ; after hours Junior Mechanical Engineer via the [facility] [place] mud tank operator . Please contact study team before resolving/deleting from patients problem list. Study phone number: [phone]. Diagnosis changed due to Research Module. Go to Snapshot for study details. Encounter for examination fo r normal comparison and control in clinical research program 07/26/2017 10/28/2021 Overview: DO NOT DELETE - [facility] Study: Project # [id number], Junior Mechanical Engineer: Jordan Umana, MS, MPH. SUMMARY: Goal: [...] contact study staff at ; after hours Junior Mechanical Engineer via the [facility] [place] mud tank operator . - Please contact study team before resolving/deleting from patients problem list. Study phone number: [phone]. Diagnosis changed due to Research Module. Go to Snapshot for study details. Prediabetes 04/11/2017 05/09/2019 Overview: Per Prediabetes protocol #1 documented as of this encounter (statuses as of 11/11/2023) Immunizations Name Administration Dates Next Due COVID-19 mRNA, LNP-s, No Pre serve, 2-Dose Series (Moderna) 05/02/2020,03/28/2020 COVID-19, mRNA, LNP-s, PF, B ooster, 100mcg/0.5mg (Moderna) 01/05/2021 Pneumococcal Conjugate Vacc, 13 Valent (Prevnar) 09/08/2015 Pneumococcal Polysaccharide PPV23 (Pneumovax) 05/16/2013 Season Influenza, Quad, PF, Adjuvanted, 65+ Yrs, IM (FLUAD) 12/11/2019 Seasonal Influenza, High Dos e, Trivalent, PF, IM (Fluzone HD) 12/21/2018 Seasonal Influenza, PF, 6 M & above, IM , (FluLaval or Fluzone) 03/09/2017 Seasonal Influenza, Quadriva lent Hd (Fluzone Hd) 12/15/2022,11/11/2021,11/30/2020 Seasonal Influenza, Quadriva lent, No Preserve, IM 12/14/2017,03/03/2016,02/02/2015 Seasonal Influenza, Trivalen t, (IIV3), with Preserv, (Fluzone) 12/13/2013 TD - Tetanus/Diptheria (ADULT) 09/04/2019,2009 TDAP (age [...] Telephone Encounter - Yamini Piper MD - 11/11/2023 4:42 PM EDT Noted * Telephone Encounter - Claudia Fajardo MED ASSIST - 11/11/2023 1:58 PM EDT Spoke with patient. She states that she did the clear liquid diet and today started the BRAT diet. She hasn't had any additional vomiting spells and is beginning to feel much better. * Telephone Encounter - Afshan Payton RN - 11/09/2023 3:21 PM EDT Called and spoke to pt. Will do liquid diet today. States she is feeling a bit better since she called earlier. CM will call pt again tomorrow for f/u. * Telephone Encounter - Sherri Rajan MD - 11/09/2023 2:56 PM EDT Stay on a liquid diet x 24 hrs If any further vomiting schedule appointment in clinic for evaluation or go to Urgent Care or ER. -please follow-up on scheduling her endoscopy per notes-due mid-end of October * Telephone Encounter - Kasandra Lockhart LPN - 11/09/2023 10:22 AM EDT Pt is calling and reports that she was admitted to [facility] 10/10-10/15 due to have C- Diff and blood clots. September 27, 2023 pt was hospitalized with a duodenal perforation. On the D/C paper it advises pt to reach out if she has any vomiting/diarrhea or fever over 100.4. States that she woke up 0330 this AM with the feeling that she was going to have a diarrhea BM and ended up vomiting instead. Vomited several times during this episode. Emesis consisted of undigested food. Denies blood in emesis. Did have diarrhea x 1 on 11/02. BM's have been normal since. Had a normal BM this morning around 4 AMand then again at 8 AM. Denies having blood and mucous in BM's. Reports that her gut is sore and uneasy. Denies nausea. When pressing on abd, states that it is soft and does not hurt. Is asking if there is anything she should be monitoring and wants to know if she should continue making PCP when these sx occur? Is wondering if there could be something building up since she had diarrhea 11/03/23 and then vomiting this AM? Please advise. documented in this encounter Plan of Treatment Upcoming Encounters Date Type Department Care Team (Late st Contact Info) Description 12/22/2023 2:00 PM EDT Office Visit General Internal Medicine [facility] [address] [place] [address] Yamini Piper MD [address] [facility] [place] [address] 02/01/2024 10:00 AM EST Cardiac Studies Cardiology, [facility] [address] [facility] [place] [address] [facility] [address] [facility] [place] [address] 02/16/2024 8:00 AM EST Office Visit Gastroenterology, [facility] [address] [facility] [place] [address] Cody Bedolla CRNP 132 [facility] [place] [address] 03/25/2024 10:30 AM EST [facility] [address] [place] [address] Trenton Nunez, Ranjeet Drake MD [address] [place] [address] Scheduled Procedures Name Priority Associated Diagnoses Date/Ti me COLONOSCOPY FLEXIBLE PROXIMA L DIAGNOSTIC Recall History of colonic polyps Health Maintenance Due Date Last Done Comments Adult Wellness Visit 04/06/2022 04/06/2021 Depression Screening 10/12/2023 10/11/2022 COVID-19 Vaccine ( season) 2023 12/29/2022, 12/24/2021, 08/31/2021, Additional history exists Influenza Vaccine (FLU shot) (#1) 2023 12/15/2022, 11/11/2021, 11/30/2020, Additional history exists HbA1c 06/14/2024 06/15/2023, 11/27, 06/09/2022, Additional history exists Colonoscopy 09/15/2024 09/16/2019, 08/28, 01/17/2014, Additional history exists TSH 10/23/2024 10/24/2023, 08/28, 06/15/2023, Additional history exists DXA Scan 08/13/2027 08/12/2020, 0610/2013, 08/05/2013 DTap/Tdap Vaccines (2 - Td or Tdap) 09/03/2029 [...] this encounter Medical Devices Implanted Type Area Surgical Sales Representative Device Identifier Shelf Expiration Date Model / Serial / Lot Plate Lcp Pilon 3.5 7h 240.082 - [id number] Implanted:Qty: 1 on 09/05/2023 by Ranjeet Chowdhury Jr., [place] [facility] [place] Pelvis SYNTHES 240.082 / / Hip Head V40 Taper C C 222 0 - [id number] Implanted:Qty: 1 on 09/05/2023 by Ranjeet Chowdhury Jr., [place] [facility] [place] Hip TONI : ORTHOPAEDICS 07/09/2028 6260-4-122 / / [id number] Screw Selftap 3.5x36 204.836 - [id number] Implanted:Qty: 2 on 09/05/2023 by Ranjeet Chowdhury Jr., [place] [facility] [place] Pelvis SYNTHES 204.836 / / Screw Selftap 3.5x20 204.820 - [id number] Implanted:Qty: 2 on 09/05/2023 by Ranjeet Chowdhury Jr., [place] [facility] [place] Pelvis SYNTHES 204.820 / / Implant Hip Acetab Shell 50d - [id number] Implanted:Qty: 1 on 09/05/2023 by Ranjeet Chowdhury Jr., [place] [facility] [place] Hip TONI : ORTHOPAEDICS 11/28/2026 709-04-50D / / [id number] Screw Low Profile 6.0nsb91hj - [id number] Implanted:Qty: 1 on 09/05/2023 by Ranjeet Chowdhury Jr., [place] [facility] [place] Hip TONI : ORTHOPAEDICS 04/05/2028 8415-7357 / / GDBJ Screw Low Profile 6.0jkn35it - [id number] Implanted:Qty: 1 on 09/05/2023 by Ranjeet Chowdhury Jr., [place] [facility] [place]: Hip TONI : ORTHOPAEDICS 04/03/2028 2604-6567 / / GBCA Hip Liner Mdm Cocr 38 D - [id number] Implanted:Qty: 1 on 09/05/2023 by Ranjeet Chowdhury Jr., [place] [facility] [place]: Hip TONI : ORTHOPAEDICS 07/24/2028 626-00-38D / / [id number] Implant Stem Hip Colr Std 2 - [id number] Implanted:Qty: 1 on 09/05/2023 by Ranjeet Chowdhury Jr., [place] [facility] [place]: Hip TONI : ORTHOPAEDICS 03/13/2027 3782-8029 / / [id number] Mdm X3 Inser Liner 22x44 - [id number] Implanted:Qty: 1 on 09/05/2023 by Ranjeet Chowdhury Jr., [place] [facility]: Hip TONI : ORTHOPAEDICS 09/15/2027 7236-2-244 / / [id number] documented as of this encounter Advance Directives [...] Agen t (per Health Care Power of Liquor Maker document) Care Teams Leno Sewer Relationship Specialty Start Date End Date Yamini Piper MD [address] [place] [address] PCP - General Internal Medicine 05/03/18 documented as of this encounter
--- OUTSIDE RECORDS SUMMARY | 2023-12-09 09:54 | External Medical Summary | Summary of Care ---
Author Name Unknown Organization [facility] Address [address] [place] [address] Phone [phone] Care Team Providers Care Customer Care Representative Name Role Phone Yamini Piper MD Primary Care Provider [phone] Reason for Visit * Reason Onset Date Comments Advice 11/09/2023 Encounter Details Date Type Department Care Team (Late st Contact Info) Description 11/09/2023 Telephone General Internal Medicine [facility] [address] [facility] [place] [id number] Yamini Piper MD 200 [place] [address] Advice Allergies Active Allergy Reactions Criticality Noted [...] program 07/26/2017 09/30/2019 Overview: DO NOT DELETE [facility] DETECT Study: Project # [id number], Commercial Litigation Attorney: Eric Magana, PhD. SUMMARY: Goal: Establish test [...] contact study staff at ; after hours Commercial Litigation Attorney via the [facility] hospital hardening machine operator helper . Please contact study team before resolving/deleting from patients problem list. Study phone number: [phone]. Diagnosis changed due to Research Module. Go to Snapshot for study details. Encounter for examination fo r normal comparison and control in clinical research program 07/26/2017 10/28/2021 Overview: DO NOT DELETE - [facility] Study: Project # [id number], Commercial Litigation Attorney: Jordan Umana, MS, MPH. SUMMARY: Goal: Establish [...] contact study staff at ; after hours Commercial Litigation Attorney via the [facility] hospital hardening machine operator helper . - Please contact study team before resolving/deleting from patients problem list. Study phone number: [phone]. Diagnosis changed due to Research Module. Go [...] encounter Miscellaneous Notes * Telephone Encounter - Claudia Fajardo, MED ASSIST - 11/11/2023 1:58 PM EDT [...] and reports that she was admitted to [facility] 10/10-10/15 due to have C- Diff [...] Office Visit General Internal Medicine [facility] [place] [address] [place] [address] Yamini Piper MD [address] [place] [address] 02/01/2024 10:00 AM EST Cardiac Studies Cardiology, [facility] 132 [facility] [place] [phone] Jourdan Johnson [facility] [address] [place] [address] 02/16/2024 8:00 AM EST Office Visit Gastroenterology, [facility] [address] [place] [address] Cody Bedolla CRNP [address] [place] [address] 03/25/2024 10:30 AM EST Office Visit Orthopaedics, [place] [address] [place], [place] [id number] Trenton Nunez, Ranjeet Drake MD [address] [place] [address] Scheduled Procedures Name Priority Associated Diagnoses Date/Ti [...] 08/13/2027 08/12/2020, 06/0 10/2013, 08/05/2013 DTap/Tdap Vaccines (2 - Td or [...] this encounter Medical Devices Implanted Type Area Ship'S Master Device Identifier Shelf Expiration Date Model / Serial / Lot Plate Lcp Pilon 3.5 7h 240.082 - [id number] Implanted:Qty: 1 on 09/05/2023 by Ranjeet Chowdhury Jr., MD at OR [facility] Right: Pelvis SYNTHES 240.082 / / Hip Head V40 Taper C C 222 0 - [id number] Implanted:Qty: 1 on 09/05/2023 by Ranjeet Chowdhury Jr., MD at OR [facility] Right: Hip TONI : ORTHOPAEDICS 07/09/2028 6260-4-122 / / [id number] Screw Selftap 3.5x36 204.836 - [id number] Implanted:Qty: 2 on 09/05/2023 by Ranjeet Chowdhury Jr., MD at OR [facility] Right: Pelvis SYNTHES 204.836 / / Screw Selftap 3.5x20 204.820 - [id number] Implanted:Qty: 2 on 09/05/2023 by Ranjeet Chowdhury Jr., MD at OR [facility] Right: Pelvis SYNTHES 204.820 / / Implant Hip Acetab Shell 50d - [id number] Implanted:Qty: 1 on 09/05/2023 by Ranjeet Chowdhury Jr., MD at OR [facility] Right: Hip TONI : ORTHOPAEDICS 11/28/2026 709-04-50D / / [id number] Screw Low Profile 6.7dhp44xm - [id number] Implanted:Qty: 1 on 09/05/2023 by Ranjeet Chowdhury Jr., MD at OR [facility] Right: Hip TONI : ORTHOPAEDICS 04/05/2028 2749-1509 / / GDBJ Screw Low Profile 6.4dnd16pd - [id number] Implanted:Qty: 1 on 09/05/2023 by Ranjeet Chowdhury Jr., MD at OR [facility] Right: Hip TONI : ORTHOPAEDICS 04/03/2028 6485-9916 / / GBCA Hip Liner Mdm Cocr 38 D - [id number] Implanted:Qty: 1 on 09/05/2023 by Ranjeet Chowdhury Jr., MD at OR [facility] Right: Hip TONI : ORTHOPAEDICS 07/24/2028 626-00-38D / / [id number] Implant Stem Hip Colr Std 2 - [id number] Implanted:Qty: 1 on 09/05/2023 by Ranjeet Chowdhury Jr., MD at OR [facility] Right: Hip TONI : ORTHOPAEDICS 03/13/2027 4377-2692 / / [id number] Mdm X3 Inser Liner 22x44 - [id number] Implanted:Qty: 1 on 09/05/2023 by Ranjeet Chowdhury Jr., MD at OR [facility] Right: Hip TONI : ORTHOPAEDICS 09/15/2027 7236-2-244 / / [id number] documented as of this encounter Advance Directives [...] Agen t (per Health Care Power of Inking Machine Tender document) Care Teams Customer Care Representative Relationship Specialty Start Date End Date aYmini Piper MD [address] [place] [address] PCP - General Internal Medicine 05/03/18 documented as of this encounter
--- OUTSIDE RECORDS SUMMARY | 2023-12-09 09:54 | External Medical Summary | Summary of Care ---
Author Name Unknown Organization [facility] Address [address] [place] [address] Phone [phone] Care Team Providers Care Experimental Assembler Name Role Phone Yamini Piper MD Primary Care Provider [phone] Reason for Visit * Reason Comments Outpatient Testing Encounter Details Date Type Department Care Team (Late st Contact Info) Description 10/24/2023 12:10 PM EDT Laboratory Laboratory [facility] [address] [place] [address] [facility] 200 [facility] [place] [address] Acute blood loss anemia; On peripheral parenteral nutrition (ppn); Sepsis, due to unspecified organism, unspecified whether acute organ dysfunction present (HCC); Prediabetes; Acquired hypothyroidism Allergies Active Allergy Reactions Criticality Noted Date Comments Pollen 06/17/2014 Nasal congestion documented as of this encounter (statuses as of 10/24/2023) Medications Medication Sig Dispensed Refills Start Date End Date Status [facility] CALCIUM+D3 SLOW RELEASE 600-40-500 MG-MG-UNIT PO TB24 Take 1 Tab by mouth daily at noon. 05/16/2013 Active Levothyroxine Sodium 75 MCG Oral Tablet (Levoxyl)Indications [...] on 10/24/2023 Baclofen 10 MG Oral Tablet (Lioresal)Indication s:Closed nondisplaced fracture of posterior wall of right acetabulum with routine healing, subsequent encounter,Pain and swelling of right knee Take 1 Tablet by mouth at bedtime as needed for Pain. 20 Tablet 09/27/2023 Active Additional Information Patient not taking.Reported on 10/24/2023 Omeprazole 40 MG Oral Capsule Delayed Release (PriLOSEC) Take 1 Capsule by mouth twice per day (morning, before bedtime). 60 Capsule 5 10/05/2023 Active Eliquis 5 MG Oral Tablet Take 1 Tablet by mouth in the morning and 1 Tablet before bedtime. 10/16/2023 Active Vitamin 27-0.8 MG Oral TabletIndications:Ac [place] blood loss anemia Take 1 Tablet by mouth daily at noon. 10/24/2023 Active Melatonin ER 5 MG Oral Tablet Extended ReleaseIndications:O ther insomnia 1 tab an hour before bedtime 10/24/2023 Active documented as of this encounter (statuses as of 10/24/2023) Active Problems Problem Noted Date Diagnosed Date [...] as of this encounter (statuses as of 10/24/2023) Resolved Problems Problem Noted Date Diagnosed Date Resolved Date On peripheral parenteral nutrition (ppn) 10/04/2023 10/05/2023 Gastrointestinal hemorrhage associated with duodenal ulcer 09/29/2023 10/05/2023 Closed displaced fracture of posterior wall of right acetabulum 09/05/2023 10/05/2023 Encounter for examination fo r normal comparison and control in clinical research program 07/26/2017 09/30/2019 Overview: DO NOT DELETE [facility] DETECT Study: Project # [id number], Boring Machine Operator Double End: Eric Magana, PhD. SUMMARY: Goal: Establish test [...] contact study staff at ; after hours Boring Machine Operator Double End via the [facility] brick setter operator . Please contact study team before resolving/deleting from patients problem list. Study phone number: [phone]. Diagnosis changed due to Research Module. Go to Snapshot for study details. Encounter for examination fo r normal comparison and control in clinical research program 07/26/2017 10/28/2021 Overview: DO NOT DELETE - [facility] DETECT Study: Project # [id number], Boring Machine Operator Double End: Jordan Umana, MS, MPH. SUMMARY: Goal: Establish [...] contact study staff at ; after hours Boring Machine Operator Double End via the [facility] hospital brick setter operator . - Please contact study team before resolving/deleting from patients problem list. Study phone number: [phone]. Diagnosis changed due to Research Module. Go to Snapshot for study details. Prediabetes 04/11/2017 05/09/2019 Overview: Per Prediabetes protocol #1 documented as of this encounter (statuses as of 10/24/2023) Immunizations Name Administration Dates Next Due COVID-19 [...] PM EDT Office Visit General Internal Medicine [facility] [address] [place] [address] Yamini Piper MD [address] [place] [address] 02/01/2024 10:00 AM EST Cardiac Studies Cardiology, [facility] 132 [facility] [place] [address] [place] [place] [address] 02/16/2024 8:00 AM EST Office Visit Gastroenterology, [facility] [address] [place] [address] Cody Bedolla CRNP [address] [place] [address] 03/25/2024 10:30 AM EST Office Visit Orthopaedics, [place] [address] [place] [address] Ranjeet Chowdhury Jr., MD [address] [place] [address] Pending Results Name Type Priority Associated Diagnoses Date /Time FERRITIN Lab Routine Acute blood loss anemia 10/24/2023 12:44 PM EDT IRON SCREEN, INCLUDING TIBC Lab Routine Acute blood loss anemia 10/24/2023 12:44 PM EDT BASIC METABOLIC PANEL Lab Routine On peripheral parenteral nutrition (ppn) 10/24/2023 12:44 PM EDT MAGNESIUM Lab Routine On peripheral parenteral nutrition (ppn) 10/24/2023 12:44 PM EDT PHOSPHORUS Lab Routine On peripheral parenteral nutrition (ppn) 10/24/2023 12:44 PM EDT TSH WITH FREE T4 IF INDICATED Lab Routine Acquired hypothyroidism 10/24/2023 12:44 PM EDT Scheduled Procedures Name Priority Associated [...] exists DXA Scan 08/13/2027 08/12/2020, 10/2013, 08/05/2013 DTap/Tdap Vaccines (2 - Td [...] this encounter Medical Devices Implanted Type Area Air Twist Operator Device Identifier Shelf Expiration Date Model / Serial / Lot Plate Lcp Pilon 3.5 7h 240.082 - [id number] Implanted:Qty: 1 on 09/05/2023 by Ranjeet Chowdhury Jr., MD at OR [facility] Right: Pelvis SYNTHES 240.082 / / Hip Head V40 Taper C C 222 0 - [id number] Implanted:Qty: 1 on 09/05/2023 by Ranjeet Chowdhury Jr., MD at OR [facility] Right: Hip TONI : ORTHOPAEDICS 07/09/2028 6260-4-122 / / [id number] Screw Selftap 3.5x36 204.836 - [id number] Implanted:Qty: 2 on 09/05/2023 by Ranjeet Chowdhury Jr., MD at OR [facility] Right: Pelvis SYNTHES 204.836 / / Screw Selftap 3.5x20 204.820 - [id number] Implanted:Qty: 2 on 09/05/2023 by Ranjeet Chowdhury Jr., MD at OR [facility] Right: Pelvis SYNTHES 204.820 / / Implant Hip Acetab Shell 50d - [id number] Implanted:Qty: 1 on 09/05/2023 by Ranjeet Chowdhury Jr., MD at OR [facility] Right: Hip TONI : ORTHOPAEDICS 11/28/2026 709-04-50D / / [id number] Screw Low Profile 6.0waq57nm - [id number] Implanted:Qty: 1 on 09/05/2023 by Ranjeet Chowdhury Jr., MD at OR [facility] Right: Hip TONI : ORTHOPAEDICS 04/05/2028 9742-1673 / / GDBJ Screw Low Profile 6.7zgf76ux - [id number] Implanted:Qty: 1 on 09/05/2023 by Ranjeet Chowdhury Jr., MD at OR [facility] Right: Hip TONI : ORTHOPAEDICS 04/03/2028 7796-6952 / / GBCA Hip Liner Mdm Cocr 38 D - [id number] Implanted:Qty: 1 on 09/05/2023 by Ranjeet Chowdhury Jr., MD at OR [facility] Right: Hip TONI : ORTHOPAEDICS 07/24/2028 626-00-38D / / [id number] Implant Stem Hip Colr Std 2 - [id number] Implanted:Qty: 1 on 09/05/2023 by Ranjeet Chowdhury Jr., MD at OR [facility] Right: Hip TONI : ORTHOPAEDICS 03/13/2027 2024-0361 / / [id number] Mdm X3 Inser Liner 22x44 - [id number] Implanted:Qty: 1 on 09/05/2023 by Ranjeet Chowdhury Jr., MD at OR [facility] Right: Hip TONI : ORTHOPAEDICS 09/15/2027 7236-2-244 / / [id number] documented as of this encounter Procedures Procedure Name Priority Date/Time Associated Diagnosis Comments DIFFERENTIAL, AUTOMATED Routine 10/24/2023 12:44 PM EDT Sepsis, due to unspecified organism, unspecified whether acute organ dysfunction present (HCC) CBC Routine 10/24/2023 12:44 PM EDT Sepsis, due to unspecified organism, unspecified whether acute organ dysfunction present (HCC) CBC Routine 10/24/2023 12:44 PM EDT Sepsis, due to unspecified organism, unspecified whether acute organ dysfunction present (HCC) documented in this encounter Results * (ABNORMAL) DIFFERENTIAL, AUTOMATED (10/24/2023 12:44 PM EDT) WBC 6.74 4.00 - 10.80 K/uL 10/24/2023 12:56 PM EDT [facility] 56- Neutrophils % 79.3(H) 40.0 - 75.0 % 10/24/2023 12:56 PM EDT [facility] 56 Lymphocytes % 12.3(L) 18.0 - 42.0 % 10/24/2023 12:56 PM EDT [facility] 56 Monocytes % 5.9 1.0 - 11.0 % 10/24/2023 12:56 PM EDT [facility] 56 Eosinophils % 1.9 0.0 - 6.0 % 10/24/2023 12:56 PM EDT [facility] 56 Basophils % 0.6 0.0 - 2.0 % 10/24/2023 12:56 PM EDT [facility] 56 Absolute Neutrophils 5.34 1.80 - 7.70 K/uL 10/24/2023 12:56 PM EDT [facility] 56- Absolute Lymphocytes 0.83(L) 1.00 - 4.80 K/ul 10/24/2023 12:56 PM EDT [facility] 56 Absolute Monocytes 0.40 0.00 - 1.10 K/uL 10/24/2023 12:56 PM EDT [facility] 56 Absolute Eosinophils 0.13 0.00 - 0.70 K/uL 10/24/2023 12:56 PM EDT [facility] Absolute Basophils 0.04 0.00 - 0.20 K/uL 10/24/2023 12:56 PM EDT [facility] 56 Blood Venous blood specimen / Unknown Venipuncture / Unknown 10/24/2023 12:44 PM EDT 10/24/2023 12:44 PM EDT Bri Salazar MD LAB BLOOD ORDERA BLES [facility] [address] [place] [address] * (ABNORMAL) CBC (10/24/2023 12:44 PM EDT) WBC 6.74 4.00 - 10.80 K/uL 10/24/2023 12:56 PM EDT [facility] 56 RBC 3.52 3.85 - 5.15 M/uL 10/24/2023 12:[address] HGB 10.8(L) 12.0 - 15.3 g/dL 10/24/2023 12:[address] HCT 35.4(L) 36.0 - 45.2 % 10/24/2023 12:[address] MCV 100.6 81.5 - 97.5 fL 10/24/2023 12:[address] MCH 30.7 27.0 - 34.0 pg 10/24/2023 12:[address] MCHC 30.5 32.0 - 36.0 g/dL 10/24/2023 12:[address] RDW 18.1 11.5 - 15.5 % 10/24/2023 12:[address] PLT 194 140 - 400 K/uL 10/24/2023 12:[address] MPV 10.5 6.6 - 11.1 fL 10/24/2023 12:56 PM EDT [facility] 56 Blood Venous blood specimen / Unknown Venipuncture / Unknown 10/24/2023 12:44 PM EDT 10/24/2023 12:44 PM EDT Bri Salazar MD LAB BLOOD ORDERA BLES [address] [place] [address] documented in this encounter Visit Diagnoses Diagnosis Acute blood loss anemia Acute posthemorrhagic anemia On peripheral parenteral nutrition (ppn) Other specified conditions influencing health status Sepsis, due to unspecified organism, unspecified whether acute organ dysfunction present (HCC) Prediabetes Other abnormal glucose Acquired hypothyroidism Unspecified hypothyroidism documented in this encounter Advance Directives * [...] [facility] Erika Rikki Adult Child Health Care Agen t (per Health Care Power of Umbrella Tipper document) Care Teams Experimental Assembler Relationship Specialty Start Date End Date Yamini Piper MD [address] [place] [address] [place] [address] PCP - General Internal Medicine 05/03/18 documented as of this encounter
--- OUTSIDE RECORDS SUMMARY | 2023-12-09 09:54 | External Medical Summary ---
Author Name Unknown Address Unknown Organization K09[facility] [place] [address] Laboratory Report Ordering Provider Test Date Status JUANA CAMPBELL 12/08/2023 09:54:48 Final Observation Date Value Abnormality Reference (Units ) Status WBC, Total 12/08/2023 09:54:48 5.48 4.00-10.8 0 (K/uL) Final RBC 12/08/2023 09:54:48 3.99 3.85-5.15 (M/uL) Final Hemoglobin 12/08/2023 09:54:48 12.1 12.0-15.3 (g/dL) Final HCT 12/08/2023 09:54:48 38.5 36.0-45.2 (%) Final MCV 12/08/2023 09:54:48 96.5 81.5-97.5 (fL) Final MCH 12/08/2023 09:54:48 30.3 27.0-34.0 (pg) Final MCHC 12/08/2023 09:54:48 31.4 32.0-36.0 (g/dL) Final RDW 12/08/2023 09:54:48 14.0 11.5-15.5 (%) Final Platelets 12/08/2023 09:54:48 152 140-400 (K /uL) Final MPV 12/08/2023 09:54:48 10.7 6.6-11.1 ( fL) Final Performing Location [facility] [place] [address]
--- OUTSIDE RECORDS SUMMARY | 2023-12-09 09:54 | External Medical Summary | Summary of Care ---
Author Name Unknown Organization [facility] Address [address] [place] [address] Phone [phone] Care Team Providers Care Supervisor Waterworks Name Role Phone Yamini Piper MD Primary Care Provider [phone] Encounter Details Date Type Department Care Team (Latest Contact Info) Description 10/23/2023 7:46 AM EDT - 10/23/2023 11:59 PM EDT Hospital Encounter Radiology, [place] [address] [place] [address] Arrived Discharge Disposition: Home - Self Care Allergies Active Allergy Reactions Criticality Noted Date Comments Pollen 06/17/2014 Nasal congestion documented as of this encounter (statuses as of 10/24/2023) Medications Medication Sig Dispensed Refills Start Date End Date Status [facility] CALCIUM+D3 SLOW RELEASE 600-40-500 MG-MG-UNIT PO TB24 Take 1 Tab by mouth daily at noon. 05/16/2013 Active Levothyroxine Sodium 75 MCG Oral Tablet (Levoxyl)Indication [...] Additional Information Patient not taking.Reported on 10/23/2023 Omeprazole 40 MG Oral Capsule Delayed Release (PriLOSEC) Take 1 Capsule by mouth twice per day (morning, before bedtime). 60 Capsule 5 10/05/2023 Active Vitamin 27-0.8 MG Oral Tablet Take 1 Tablet by mouth daily at noon. 60 Tablet 09/10/2023 4 Discontinu ed(Refill) Melatonin ER 5 MG Oral Tablet Extended ReleaseIndications: Other insomnia 1 tab an hour before bedtime 30 Tablet 5 09/27/2023 4 Discontinu ed(Refill) documented as of this encounter (statuses as of 10/24/2023) Active Problems Problem Noted Date Diagnosed Date Duodenal perforation 09/29/2023 Retroperitoneal hematoma 09/26/2023 Closed fracture of head of right femur 4 Anemia due to GI blood loss 09/09/2023 [...] DELETE [facility] DETECT Study: Project # [id number], Flour Worker: Eric Magana, PhD. SUMMARY: Goal: Establish test [...] contact study staff at ; after hours Flour Worker via the [facility] chalk extruding machine operator . Please contact study team before resolving/deleting from patients problem list. Study phone number: [phone]. Diagnosis changed due to Research Module. Go to Snapshot for study details. Encounter for examination fo r normal comparison and control in clinical research program 07/26/2017 10/28/2021 Overview: DO NOT DELETE - [facility] [place] DETECT Study: Project # [id number], Flour Worker: Jordan Umana, MS, MPH. SUMMARY: Goal: Establish [...] contact study staff at ; after hours Flour Worker via the [facility] chalk extruding machine operator . - Please contact study team before resolving/deleting from patients problem list. Study phone number: [phone]. Diagnosis changed due to Research Module. Go [...] PM EDT Office Visit General Internal Medicine [facility] [address] [place] [address] Yamini Piper MD [address] [place] [address] 02/01/2024 10:00 AM EST Cardiac Studies Cardiology, [facility] [address] [place] [address] [place], Pacer Clinic [facility] [address] [place] [address] 02/16/2024 8:00 AM EST Office Visit Gastroenterology, [facility] [address] [place] [address] Cody Bedolla CRNP [address] [place] [address] 03/25/2024 10:30 AM EST Office Visit Orthopaedics, [place] [address], [place] [id number] Ranjeet Chowdhury Jr., MD [address], [place] [id number] Scheduled Procedures Name Priority Associated Diagnoses Date/Ti me COLONOSCOPY FLEXIBLE PROXIMA L DIAGNOSTIC Recall History of colonic polyps Health Maintenance Due Date Last Done Comments Adult Wellness Visit 04/06/2022 04/06/2021 COVID-19 Vaccine (2022-24 season) 2023 12/29/2022, 12/24/2021, 08/31/2021, Additional history exists Depression Screening 10/12/2023 10/11/2022 Influenza Vaccine (FLU shot) (#1) 2023 12/15/2022, 11/11/2021, 11/30/2020, Additional history exists HbA1c 06/14/2024 06/15/2023, 11/27, 06/09/2022, Additional history exists Colonoscopy 09/15/2024 09/16/2019, 08/28, 01/17/2014, Additional history exists TSH 09/24/2024 09/25/2023, 05/28, 12/12/2022, Additional history exists DXA Scan 08/13/2027 08/12/2020, 06/10/2013, 08/05/2013 DTap/Tdap Vaccines (2 - Td or [...] this encounter Medical Devices Implanted Type Area Warehouse Trainer Device Identifier Shelf Expiration Date Model / Serial / Lot Plate Lcp Pilon 3.5 7h 240.082 - [id number] Implanted:Qty: 1 on 09/05/2023 by Trenton Nunez, Ranjeet Drake MD at [place] [facility] Right: Pelvis SYNTHES 240.082 / / Hip Head V40 Taper C C 222 0 - [id number] Implanted:Qty: 1 on 09/05/2023 by Ranjeet Chowdhury Jr., MD at [place] [facility] Right: Hip TONI : ORTHOPAEDICS 07/09/2028 6260-4-122 / / [id number] Screw Selftap 3.5x36 204.836 - [id number] Implanted:Qty: 2 on 09/05/2023 by Ranjeet Chowdhury Jr., MD at [place] [facility] Right: Pelvis SYNTHES 204.836 / / Screw Selftap 3.5x20 204.820 - [id number] Implanted:Qty: 2 on 09/05/2023 by Ranjeet Chowdhury Jr., MD at [place] [facility] Right: Pelvis SYNTHES 204.820 / / Implant Hip Acetab Shell 50d - [id number] Implanted:Qty: 1 on 09/05/2023 by Ranjeet Chowdhury Jr., MD at [place] [facility] Right: Hip TONI : ORTHOPAEDICS 11/28/2026 709-04-50D / / [id number] Screw Low Profile 6.2qoo03xv - [id number] Implanted:Qty: 1 on 09/05/2023 by Ranjeet Chowdhury Jr., MD at [place] [facility] Right: Hip TONI : ORTHOPAEDICS 04/05/2028 6957-6819 / / GDBJ Screw Low Profile 6.9lew20ro - [id number] Implanted:Qty: 1 on 09/05/2023 by Ranjeet Chowdhury Jr., MD at [place] [facility] Right: Hip TONI : ORTHOPAEDICS 04/03/2028 7633-5029 / / GBCA Hip Liner Mdm Cocr 38 D - [id number] Implanted:Qty: 1 on 09/05/2023 by Ranjeet Chowdhury Jr., MD at [place] [facility] Right: Hip TONI : ORTHOPAEDICS 07/24/2028 626-00-38D / / [id number] Implant Stem Hip Colr Std 2 - [id number] Implanted:Qty: 1 on 09/05/2023 by Ranjeet Chowdhury Jr., MD at [place] [facility] Right: Hip TONI : ORTHOPAEDICS 03/13/2027 6476-3050 / / [id number] [facility] X3 [facility] Liner 22x44 - [id number] Implanted:Qty: 1 on 09/05/2023 by Trenton Nunez, Ranjeet Drake MD at [place] [facility] Right: Hip TONI : ORTHOPAEDICS 09/15/2027 7236-2-244 / / [id number] documented as of this encounter Procedures Procedure Name Priority Date/Time Associated Diagnosis Comments XR PELVIS COMPLETE Routine 10/23/2023 8: 00 AM EDT Closed displaced fracture of posterior wall of right acetabulum, initial encounter (HCC) documented in this encounter Results * XR PELVIS COMPLETE (10/23/2023 8:00 AM EDT) Anatomical Region Laterality Modality Pelvis, Lower Extremity Computed Radiography 10/23/2023 11:2 2 AM EDT Impressions 10/23/2023 11:19 AM EDT IMPRESSION No displaced fracture of the pelvis. Partially visualized right total hip arthroplasty and acetabular augmentation. Narrative 10/23/2023 11:19 AM EDT EXAM XR PELVIS COMPLETE-10/23/2023 8:00 am HISTORY s/p right hip fracture TECHNIQUE Three views of the pelvis COMPARISON CT 09/29/2023 FINDINGS No displaced fracture of the pelvis. Degenerative changes of the visualized lumbar spine. Mild hypertrophic changes of the sacroiliac joints and symphysis pubis. Partially visualized right total hip arthroplasty and acetabular augmentation. Hypertrophic changes and mild left hip joint space narrowing. Procedure Note Da Croft MD - 10/23/2023 EXAM XR PELVIS COMPLETE-10/23/2023 8:00 am HISTORY s/p right hip fracture TECHNIQUE Three views of the pelvis COMPARISON CT 09/29/2023 FINDINGS No displaced fracture of the pelvis. Degenerative changes of thevisualized lumbar spine. Mild hypertrophic changes of the sacroiliacjoints and symphysis pubis. Partially visualized right total hiparthroplasty and acetabular augmentation. Hypertrophic changes and mildleft hip joint space narrowing. IMPRESSION IMPRESSION No displaced fracture of the pelvis. Partially visualized right total hiparthroplasty and acetabular augmentation. Katerina Avila PA-C RADIOLOGY (RAD [facility]) documented in this encounter Advance Directives * [...] Agents on File Name Relationship Healthcare Agent [facility] p Communication Erika [facility] Health Care Agen t (per Health Care Power of Metal Worker document) Care Teams Supervisor Waterworks Relationship Specialty Start Date End Date Yamini Piper MD [address] [place], [place] [address] PCP - General Internal Medicine 05/03/18 documented as of this encounter
--- OUTSIDE RECORDS SUMMARY | 2023-12-09 09:54 | External Medical Summary ---
Author Name Unknown Address Unknown Organization K09:[facility] [place] [address] Laboratory Report Ordering Provider Test Date Status KATHARINA GAITAN 10/24/2023 12:44:20 Final Discharge Order Observation Date Value Abnormality Reference (Units ) Status BUN 10/24/2023 12:44:20 16 6-20 (mg/dL) Final Creatinine 10/24/2023 12:44:20 0.7 0.5-1.0 (mg/dL) Final Glomerular filtration rate/1.73 sq M.predicted [Volume Rate/Area] in Serum, Plasma or Blood by Creatinine-based formula (CKD-EPI) 10/24/2023 12:44:20 >90 >=60 (mL/min) Final eGFR is calculated based on the CKD-EPI 2020 equation. Sodium 10/24/2023 12:44:20 140 135-146 (m mol/L) Final Potassium 10/24/2023 12:44:20 4.7 3.5-5.1 (m mol/L) Final Cl 10/24/2023 12:44:20 102 98-107 (mm ol/L) Final CO2 10/24/2023 12:44:20 22 22-32 (mmo l/L) Final Anion gap 10/24/2023 12:44:20 16 Above high normal 7- 15 (mmol/L) Final Glucose 10/24/2023 12:44:20 97 70-120 (mg /dL) Final Calcium 10/24/2023 12:44:20 9.3 8.4-10.2 ( mg/dL) Final Performing Location [facility] [address]
--- OUTSIDE RECORDS SUMMARY | 2023-12-09 09:54 | External Medical Summary | Summary of Care ---
Author Name Unknown Organization [facility] Address [address] [place] [address] Phone [phone] Care Team Providers Care Mesmerist Name Role Phone Yamini Piper MD Primary Care Provider [phone] Reason for Referral * Evaluate & Treat - Unlimited Visits (Within 10 days (routine)) - Authorized Specialty Diagnoses / Procedures Referred By Satnam proctor Referred To Contact Physical Therapy / Physical Medicine And Rehab Diagnoses Closed displaced fracture of posterior wall of right acetabulum, initial encounter (HCC) Katerina Avila PA-C [address] [place] [address] Referral ID Status Reason Start Date Expiration Date Visits Requested Visits Authorized [id number] Authorized Specialty Services Required 10/23/2023 999 999 Question Answer Referral Priority Within 10 days (routine) Where should this appointment be scheduled? [facility] Comments Gait training Strengthening and stretching Maintain hip precuations 90 days post op Reason for Visit * Reason Comments Follow Up S/p right posterior wall fracture with hip dislocation Encounter Details Date Type Department Care Team (Late st Contact Info) Description 10/23/2023 7:45 AM EDT Office Visit Orthopaedics, [place] [address] [place] [address] Ranjeet Chowdhury Jr., MD [address] [place] [address] Closed displaced fracture of posterior wall of right acetabulum, initial encounter ([facility])* Allergies Active Allergy Reactions Criticality Noted Date Comments Pollen 06/17/2014 Nasal congestion documented as of this encounter (statuses as of 10/23/2023) Medications Medication Sig Dispensed Refills Start Date [...] Additional Information Patient not taking.Reported on 10/23/2023 Vitamin 27-0.8 MG Oral Tablet Take 1 Tablet by mouth daily at noon. 60 Tablet 09/10/2023 Active Additional Information Patient not taking.Reported [...] before bedtime). 60 Capsule 5 10/05/2023 Active documented as of this encounter (statuses as of 10/23/2023) Active Problems Problem Noted Date Diagnosed Date [...] as of this encounter (statuses as of 10/23/2023) Resolved Problems Problem Noted Date Diagnosed Date [...] The Chronically Ill DETECT Study: Project # [id number], Customer Marketing Intern: Eric Magana, PhD. 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 Please contact study team before resolving/deleting from patients problem list. Study phone number: [phone]. Diagnosis changed due to Research Module. Go to Astro Ape for study details. Encounter for examination fo r normal comparison and control in clinical research program 07/26/2017 10/28/2021 Overview: DO NOT DELETE - [facility] Study: Project # [id number], Customer Marketing Intern: Jordan Umana, MS, MPH. SUMMARY: Goal: Establish [...] contact study staff at ; after hours Customer Marketing Intern via the [facility] [place] [place] hospital continuous loft operator . - Please contact study team before resolving/deleting from patients problem list. Study phone number: [phone]. Diagnosis changed due to Research Module. Go to Astro Ape for study details. Prediabetes 04/11/2017 05/09/2019 Overview: Per Prediabetes protocol #1 documented as of this encounter (statuses as of 10/23/2023) Immunizations Name Administration Dates Next Due COVID-19 [...] Notes * Ranjeet Chowdhury Jr., MD - 10/23/2023 8:26 AM EDT I performed a history and physical examination of the patient and discussed the management with thePhysician Automatic Teller Machine Servicer, Kaden Avila. I reviewed the PA's note and agree with the documented findings and plan of care. Ranjeet Chowdhury MD Films show stable components Went over precautions and dental prophylaxis See back at 6 months Ranjeet Chowdhury Jr, MD * Katerina Avila PA-C - 10/23/2023 8:07 AM EDT [facility] [id number] Patient Name: Beth Brandt DATE: 10/23/2023 PROCEDURE: Surgery on 09/05/23 ORIF of right posterior wall fracture Acute right total hip arthroplasty DIAGNOSIS: Right posterior wall fracture with hip dislocation HPI: Patient returns to clinic for 6weeks follow up for the above surgery. Currently at the rehab hospital. Doing well. Walking with an assistive device. Pain well controlled. She had a GI bleed and b/l DVTs. General ROS: no fever or chills, no drainage from incision, no shortness of breath, no chest pain, no calf pain, no redness around incision Pain is as expected, and well controlled with acetaminophen. OE: VITALS: as above. GENERAL: No acute distress RESP: normal respiratory effort and no accessory muscles EXTREMITIES: dorsiflexion intact, plantarflexion intact, able to supinate, able to pronate, sensation intact, flexion intact, and extension intact PULSES: The following pulses are normal: dorsalis pedis pulses and posterior tibials INCISION(S): well healed. [place] removed. Steristrips applied. IMPRESSION: S/P ORIF of right posterior wall and acute right MARE, 6 weeks post-op PLAN: -RLE: WBAT. Discussed continued posteiror hip precautions. Use walker to help with ambulation -Work on muscle strengthening of right leg -follow up in 5 months for repeat exam and x-rays of the right pelvis. AP/inlet/outlet - discussed dental prophylaxis CC: (1) Yamini Piper MD (2) Yamini Piper MD Encounter No. : [id number] (2) Yamini Piper MD documented in this encounter Plan of Treatment Upcoming Encounters Date Type Department Care Team (Late st Contact Info) Description 10/24/2023 11:00 AM EDT Office Visit General Internal Medicine [facility] [address] [facility] [place] [address] Yamini Piper MD [address] [facility] [facility] [place] [address] 12/22/2023 2:00 PM EDT Office Visit General Internal Medicine [facility] [address] [facility] [place] [address] Yamini Piper MD [address] [facility] [place] [address] 02/01/2024 10:00 AM EST Cardiac Studies Cardiology, [facility] [address] [place] [address] [place], Pacer Clinic [facility] [address] [place] [address] 03/25/2024 10:30 AM EST [facility] [address] [place] [address] Ranjeet Chowdhury Jr., MD [address], [place] [id number] Pending Results Name Type Priority Associated Diagnoses Date /Time XR PELVIS COMPLETE Medical Imaging Routine Closed displaced fracture of posterior wall of right acetabulum, initial encounter (HCC) 10/23/2023 8:00 AM EDT Scheduled Procedures Name Priority Associated Diagnoses Date/Ti me COLONOSCOPY FLEXIBLE PROXIMA L DIAGNOSTIC Recall History of colonic polyps Scheduled Referrals Name Type Priority Associated Diagnoses Orde r Schedule PHYSICAL THERAPY REFERRAL OP Referral Within 10 days (routine) Closed displaced fracture of posterior wall of right acetabulum, initial encounter (HCC) Ordered: 10/23/2023 Health Maintenance Due Date Last Done Comments [...] this encounter Medical Devices Implanted Type Area Inventory Clerk Device Identifier Shelf Expiration Date Model / Serial / Lot Plate Lcp Pilon 3.5 7h 240.082 - [id number] Implanted:Qty: 1 on 09/05/2023 by Ranjeet Chowdhury Jr., MD at [place] [facility] [place] [place] Right: Pelvis SYNTHES 240.082 / / Hip Head V40 Taper C C 222 0 - [id number] Implanted:Qty: 1 on 09/05/2023 by Ranjeet Chowdhury Jr., MD at [place] [facility] [place] [place] Right: Hip TONI : ORTHOPAEDICS 07/09/2028 6260-4-122 / / [id number] Screw Selftap 3.5x36 204.836 - [id number] Implanted:Qty: 2 on 09/05/2023 by Ranjeet Chowdhury Jr., MD at [place] [facility] [place] [place] Right: Pelvis SYNTHES 204.836 / / Screw Selftap 3.5x20 204.820 - [id number] Implanted:Qty: 2 on 09/05/2023 by Ranjeet Chowdhury Jr., MD at [place] [facility] [place] [place] Right: Pelvis SYNTHES 204.820 / / Implant Hip Acetab Shell 50d - [id number] Implanted:Qty: 1 on 09/05/2023 by Ranjeet Chowdhury Jr., MD at [place] [facility] [place] Right: Hip TONI : ORTHOPAEDICS 11/28/2026 709-04-50D / / [id number] Screw Low Profile 6.0jex20of - [id number] Implanted:Qty: 1 on 09/05/2023 by Ranjeet Chowdhury Jr., MD at [place] [facility] [place] [place] Right: Hip TONI : ORTHOPAEDICS 04/05/2028 4914-8419 / / [id number] Screw Low Profile 6.7mzy27he - [id number] Implanted:Qty: 1 on 09/05/2023 by Ranjeet Chowdhury Jr., MD at [place] [facility] [place] Right: Hip TONI : ORTHOPAEDICS 04/03/2028 0938-1366 / / GBCA Hip Liner Mdm Cocr 38 D - [id number] Implanted:Qty: 1 on 09/05/2023 by Ranjeet Chowdhury Jr., MD at [place] [facility] [place] [place] Right: Hip TONI : ORTHOPAEDICS 07/24/2028 626-00-38D / / [id number] Implant Stem Hip Colr Std 2 - [id number] Implanted:Qty: 1 on 09/05/2023 by Ranjeet Chowdhury Jr., MD at [place] [facility] [place] [place] Right: Hip TONI : ORTHOPAEDICS 03/13/2027 7555-9252 / / [id number] Mdm X3 Inser Liner 22x44 - [id number] Implanted:Qty: 1 on 09/05/2023 by Ranjeet Chowdhury Jr., MD at [facility] Right: Hip TONI : ORTHOPAEDICS 09/15/2027 7236-2-244 / / [id number] documented as of this encounter Visit Diagnoses [...] Agents on File Name [facility] Erika Brandt Adult Child Health Care Agen t (per Health Care Power of Green Chain Operator document) Care Teams Mesmerist Relationship Specialty Start Date End Date Yamini Piper MD [address] [place] [address] [place] [address] PCP - General Internal Medicine 05/03/18 documented as of this encounter
--- OUTSIDE RECORDS SUMMARY | 2023-12-09 09:54 | External Medical Summary ---
Author Name Unknown Address Unknown Organization K01:[facility] [place] [address] [facility] [address] Laboratory Report Ordering Provider Test Date Status JUANA [place] 12/08/2023 09:54:48 Final Observation Date Value Abnormality Reference (Units ) Status TSH 12/08/2023 09:54:48 5.76 Above high normal 0. 27-4.20 (uIU/mL) Final Performing Location LABORATORY C - [address] [facility] [address]
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
--- OUTSIDE RECORDS SUMMARY | 2023-12-09 09:54 | External Medical Summary ---
Author Name Unknown Address Unknown Organization [id number][facility] [address] Laboratory Report Ordering Provider Test Date Status KATHARINA GAITAN 10/24/2023 12:44:20 Final Discharge Order Observation Date Value Abnormality Reference (Units ) Status Magnesium 10/24/2023 12:44:20 2.3 1.5-2.6 (m g/dL) Final Performing Location [facility] [place] [address]
--- OUTSIDE RECORDS SUMMARY | 2023-12-09 09:54 | External Medical Summary ---
Author Name Unknown Address Unknown Organization [id number] [address] [facility] [address] Laboratory Report Ordering Provider Test Date Status JUANA CAMPBELL 12/08/2023 09:54:48 Final Observation Date Value Abnormality Reference (Units ) Status HbA1C 12/08/2023 09:54:48 5.7 Above high normal 4. 0-5.6 (%) Final The use of HbA1c to monitor glycemic status is based on normal hemoglobin and HbA composition. This test should not be used in patients with abnormal hemoglobin that affects the half life of the red blood cell or the in vivo glycation rates. Glucose, estimated average 12/08/2023 09:54:48 117 <126 (mg/dL) Final Performing Location [facility] [place] [address] [facility] [address]
--- OUTSIDE RECORDS SUMMARY | 2023-12-09 09:54 | External Medical Summary ---
Author Name Unknown Address Unknown Organization [id number]:[facility] [place] [address] Laboratory Report Ordering Provider Test Date Status TIRSO MARTINEZ 10/24/2023 12:44:20 Final Observation Date Value Abnormality Reference (Units ) Status SYNC LEUKOCYTES IN BLOOD BY AUTOMATED COUNT 10/24/2023 12:44:20 6.74 4.00-10.80 (K/uL) Final Segs 10/24/2023 12:44:20 79.3 Above high normal 40.0-75.0 (%) Final Lymphs % 10/24/2023 12:44:20 12.3 Below low normal 18.0-42.0 (%) Final Monos 10/24/2023 12:44:20 5.9 1.0-11.0 (%) Final Eosinophils 10/24/2023 12:44:20 1.9 0.0-6.0 (%) Final Basos 10/24/2023 12:44:20 0.6 0.0-2.0 (%) Final Absolute Segs 10/24/2023 12:44:20 5.34 1.80-7.70 (K/uL) Final Lymphs, absolute 10/24/2023 12:44:20 0.83 Below low normal 1.00-4.80 (K/ul) Final Monos, Abs 10/24/2023 12:44:20 0.40 0.00-1.10 (K/uL) Final Eos, Abs 10/24/2023 12:44:20 0.13 0.00-0.70 (K/uL) Final Basos, Abs 10/24/2023 12:44:20 0.04 0.00-0.20 (K/uL) Final Performing Location [facility] [place] [address]
--- OUTSIDE RECORDS SUMMARY | 2023-12-09 09:54 | External Medical Summary ---
Author Name Unknown Address Unknown Organization [id number]:[facility] [address] [facility] [address] Laboratory Report Ordering Provider Test Date Status JUANA CAMPBELL 12/07/2023 13:08:44 Final Observation Date Value Abnormality Reference (Units) Status Source 12/07/2023 13:08:44 Liquid Final Clostridioides difficile toxin and BI-NAP1-027 strain DNA panel - Stool by KAILEE with probe detection 12/07/2023 13:08:44 Positive for C. difficile toxin B gene DNA by PCR (Amplified Probe). Presumptive negative for C. difficile 027-NAP1-B1 strain by PCR (Amplified Probe). Abnormal Negative Final Performing Location [facility] [place] [address] [facility] [address]
--- OUTSIDE RECORDS SUMMARY | 2023-12-09 09:54 | External Medical Summary ---
Author Name Unknown Address Unknown Organization K09:[facility] [place] [address] Laboratory Report Ordering Provider Test Date Status TIRSO MARTINEZ 10/24/2023 12:44:20 Final Observation Date Value Abnormality Reference (Units ) Status WBC, Total 10/24/2023 12:44:20 6.74 4.00-10.8 0 (K/uL) Final RBC 10/24/2023 12:44:20 3.52 3.85-5.15 (M/uL) Final Hemoglobin 10/24/2023 12:44:20 10.8 Below low normal 12 .0-15.3 (g/dL) Final HCT 10/24/2023 12:44:20 35.4 Below low normal 36. 0-45.2 (%) Final MCV 10/24/2023 12:44:20 100.6 81.5-97.5 (fL) Final MCH 10/24/2023 12:44:20 30.7 27.0-34.0 (pg) Final MCHC 10/24/2023 12:44:20 30.5 32.0-36.0 (g/dL) Final RDW 10/24/2023 12:44:20 18.1 11.5-15.5 (%) Final Platelets 10/24/2023 12:44:20 194 140-400 (K /uL) Final MPV 10/24/2023 12:44:20 10.5 6.6-11.1 ( fL) Final Performing Location [facility] [place] [address]
--- OUTSIDE RECORDS SUMMARY | 2023-12-09 09:54 | External Medical Summary ---
Author Name Unknown Address Unknown Organization K01[facility] [place] [address] [address] [place] [facility] [address] Laboratory Report Ordering Provider Test Date Status EDNA CAMPBELLSILVIA 10/24/2023 12:44:20 Final Observation Date Value Abnormality Reference (Units ) Status Ferritin 10/24/2023 12:44:20 717 Above high normal 13 -150 (ng/mL) Final Postmenopausal women have hi gher ferritin levels than pre-menopausal women. The above reference interval is based on pre-menopausal women. Performing Location [facility] [place] [address] [facility] [address]
--- OUTSIDE RECORDS SUMMARY | 2023-12-09 09:54 | External Medical Summary ---
Author Name Unknown Address Unknown Organization [id number]:[facility] [place] [address] [place] [address] Laboratory Report Ordering Provider Test Date Status SHANNANEDNASILVIA 10/24/2023 12:44:20 Final Observation Date Value Abnormality Reference (Units ) Status TSH 10/24/2023 12:44:20 4.91 Above high normal 0. 27-4.20 (uIU/mL) Final Performing Location [facility] [place] [address] [place] [address]
--- OUTSIDE RECORDS SUMMARY | 2023-12-09 09:54 | External Medical Summary | Summary of Care ---
Author Name Unknown Organization [facility] Address [address] [place] [address] Phone [phone] Care Team Providers Care Biochemistry Teacher Name Role Phone Yamini Piper MD Primary Care Provider [phone] Reason for Visit * Reason Comments Outpatient Testing Encounter Details Date Type Department Care Team (Late st Contact Info) Description 12/07/2023 1:00 PM EDT Laboratory Laboratory, [facility] [address] [place] [address] Juan, Specimen Drop Off [facility] [address] [place] [address] Diarrhea, unspecified type Allergies Active Allergy Reactions Criticality Noted Date Comments Pollen 06/17/2014 Nasal congestion documented as of this encounter (statuses as of 12/07/2023) Medications Medication Sig Dispensed Refills Start Date [...] as of this encounter (statuses as of 12/07/2023) Active Problems Problem Noted Date Diagnosed Date [...] as of this encounter (statuses as of 12/07/2023) Resolved Problems Problem Noted Date Diagnosed Date Resolved Date On peripheral parenteral nutrition (ppn) 10/04/2023 10/05/2023 Gastrointestinal hemorrhage associated with duodenal ulcer 09/29/2023 10/05/2023 Closed displaced fracture of posterior wall of right acetabulum 09/05/2023 10/05/2023 Encounter for examination fo r normal comparison and control in clinical research program 07/26/2017 09/30/2019 Overview: DO NOT DELETE [facility] DETECT Study: Project # [id number], Land Acquisition Specialist: Eric Magana, PhD. SUMMARY: Goal: Establish [...] contact study staff at ; after hours Land Acquisition Specialist via the [facility] hospital sdv pilot/navigator/dds operator . Please contact study team before resolving/deleting from patients problem list. Study phone number: [phone]. Diagnosis changed due to Research Module. Go to Snapshot for study details. Encounter for examination fo r normal comparison and control in clinical research program 07/26/2017 10/28/2021 Overview: DO NOT DELETE - [facility] DETECT Study: Project # [id number], Land Acquisition Specialist: Jordan Umana, MS, MPH. SUMMARY: Goal: [...] contact study staff at ; after hours Land Acquisition Specialist via the [facility] hospital sdv pilot/navigator/dds operator . - Please contact study team before resolving/deleting from patients problem list. Study phone number: [phone]. Diagnosis changed due to Research Module. Go to Snapshot for study details. Prediabetes 04/11/2017 05/09/2019 Overview: Per Prediabetes protocol #1 documented as of this encounter (statuses as of 12/07/2023) Immunizations Name Administration Dates Next Due COVID-19 mRNA, LNP-s, No Pre serve, 2-Dose Series (Moderna) 05/02/2020,03/28/2020 COVID-19, mRNA, LNP-s, PF, B ooster, 100mcg/0.5mg (Moderna) 01/05/2021 Pneumococcal Conjugate Vacc, 13 Valent (Prevnar) 09/08/2015 Pneumococcal Polysaccharide PPV23 (Pneumovax) 05/16/2013 Season Influenza, Quad, PF, Adjuvanted, 65+ Yrs, IM (FLUAD) 12/11/2019 Seasonal Influenza Vac., MDV , IM, 0.5 mL (Fluzone) 12/13/2013 Seasonal Influenza, High Dos e, Trivalent, PF, [...] AM EDT Office Visit General Internal Medicine [facility] [address] [place] [address] Yamini Piper MD [address] [facility] [place] [address] 01/02/2024 9:00 AM EST Office Visit General Internal Medicine [facility] [address] [place] [address] Yamini Piper MD [address] [facility] [place] [address] 02/01/2024 10:00 AM EST Cardiac Studies Cardiology, [facility] [address] [facility] [place] [address] [facility] [address] [facility] [place] [address] 02/16/2024 8:00 AM EST Office Visit Gastroenterology, [facility] [address] [place] [address] Cody Bedolla CRNP [address] [place] [address] 03/25/2024 10:30 AM EST Office Visit Orthopaedics, [place] [address] [place] [address] Ranjeet Chowdhury Jr., MD [address] [place] [address] Pending Results Name Type Priority Associated Diagnoses Date /Time CLOSTRIDIUM DIFFICILE, PCR Lab Routine Diarrhea, unspecified type 12/07/2023 1:08 PM EDT Scheduled Procedures Name Priority Associated [...] encounter Medical Devices Implanted Type Area Supervisor Cigar Making Hand Device Identifier Shelf Expiration Date Model / Serial / Lot Plate Lcp Pilon 3.5 7h 240.082 - [id number] Implanted:Qty: 1 on 09/05/2023 by Ranjeet Chowdhury Jr., MD at [place] [facility] Right: Pelvis SYNTHES 240.082 / / Hip Head V40 Taper C C 222 0 - [id number] Implanted:Qty: 1 on 09/05/2023 by Ranjeet Chowdhury Jr., MD at OR [facility] Right: Hip TONI : ORTHOPAEDICS 07/09/2028 6260-4-122 / / [id number] Screw Selftap 3.5x36 204.836 - [id number] Implanted:Qty: 2 on 09/05/2023 by Ranjeet Chowdhury Jr., MD at OR [facility] Right: Pelvis SYNTHES 204.836 / / Screw Selftap 3.5x20 204.820 - [id number] Implanted:Qty: 2 on 09/05/2023 by Ranjeet Chowdhury Jr., MD at OR [facility] Right: Pelvis SYNTHES 204.820 / / Implant Hip Acetab Shell 50d - [id number] Implanted:Qty: 1 on 09/05/2023 by Ranjeet Chowdhury Jr., MD at OR [facility] Right: Hip TONI : ORTHOPAEDICS 11/28/2026 709-04-50D / / [id number] Screw Low Profile 6.7idw58ae - [id number] Implanted:Qty: 1 on 09/05/2023 by Ranjeet Chowdhury Jr., MD at OR [facility] Right: Hip TONI : ORTHOPAEDICS 04/05/2028 9312-6946 / / GDBJ Screw Low Profile 6.9aur22yr - [id number] Implanted:Qty: 1 on 09/05/2023 by Ranjeet Chowdhury Jr., MD at OR [facility] Right: Hip TONI : ORTHOPAEDICS 04/03/2028 3003-2872 / / GBCA Hip Liner Mdm Cocr 38 D - [id number] Implanted:Qty: 1 on 09/05/2023 by Ranjeet Chowdhury Jr., MD at OR [facility] Right: Hip TONI : ORTHOPAEDICS 07/24/2028 626-00-38D / / [id number] Implant Stem Hip Colr Std 2 - [id number] Implanted:Qty: 1 on 09/05/2023 by Ranjeet Chowdhury Jr., MD at OR [facility] Right: Hip TONI : ORTHOPAEDICS 03/13/2027 9833-7846 / / [id number] Mdm X3 Inser Liner 22x44 - [id number] Implanted:Qty: 1 on 09/05/2023 by Ranjeet Chowdhury Jr., MD at OR [facility] Right: Hip TONI : ORTHOPAEDICS 09/15/2027 7236-2-244 / / [id number] documented as of this encounter Visit Diagnoses Diagnosis Diarrhea, unspecified type documented in this encounter Additional Health Concerns Infection Onset Date Last Indicated Resolved Time C. difficile Rule-Out 12/07/2023 12/07/2023 documented as of this encounter [...] Agen t (per Health Care Power of Boiler Plant Worker document) Care Teams Biochemistry Teacher Relationship Specialty Start Date End Date Yamini Piper MD [address] [place] [address], [place] [address] PCP - General Internal Medicine 05/03/18 documented as of this encounter
--- OUTSIDE RECORDS SUMMARY | 2023-12-09 09:54 | External Medical Summary ---
Author Name Unknown Address Unknown Organization K09:[facility] - [address] [place] [address] Laboratory Report Ordering Provider Test Date Status JUANA CAMPBELL 12/08/2023 09:54:48 Final Observation Date Value Abnormality Reference (Units ) Status BUN 12/08/2023 09:54:48 8 6-20 (mg/dL) Final Creatinine 12/08/2023 09:54:48 0.7 0.5-1.0 (mg/dL) Final Glomerular filtration rate/1.73 sq M.predicted [Volume Rate/Area] in Serum, Plasma or Blood by Creatinine-based formula (CKD-EPI) 12/08/2023 09:54:48 >90 >=60 (mL/min) Final eGFR is calculated based on the CKD-EPI 2020 equation. Sodium 12/08/2023 09:54:48 142 135-146 (m mol/L) Final Potassium 12/08/2023 09:54:48 3.2 Below low normal 3.5 -5.1 (mmol/L) Final Cl 12/08/2023 09:54:48 105 98-107 (mm ol/L) Final CO2 12/08/2023 09:54:48 24 22-32 (mmo l/L) Final Anion gap 12/08/2023 09:54:48 13 7-15 (mmol /L) Final Glucose 12/08/2023 09:54:48 88 70-120 (mg /dL) Final Albumin 12/08/2023 09:54:48 4.0 3.8-5.0 (g /dL) Final AST (Aspartate aminotransferase) 12/08/2023 09:54:48 23 10-35 (U/L) Fin al Alk Phos 12/08/2023 09:54:48 105 35-130 (U/ L) Final Bilirubin, Total 12/08/2023 09:54:48 0.3 <=1 .2 (mg/dL) Final Calcium 12/08/2023 09:54:48 9.2 8.4-10.2 ( mg/dL) Final Protein 12/08/2023 09:54:48 6.5 6.0-8.3 (g /dL) Final ALT (Alanine aminotransferase) 12/08/2023 09:54:48 16 10-35 (U/L) Dudley bhatt Performing Location [facility] [address] [place] [address]
--- OUTSIDE RECORDS SUMMARY | 2023-12-09 09:54 | External Medical Summary | Summary of Care ---
Author Name Unknown Organization [facility] Address [address] [place] [address] Phone [phone] Care Team Providers Care Hardware Design Engineer Name Role Phone Yamini Piper MD Primary Care Provider [phone] Encounter Details Date Type Department Care Team (Late st Contact Info) Description 10/23/2023 Patient Reported Data Patient Survey Ortho OBERD [...] research program 07/26/2017 09/30/2019 Overview: DO NOT [facility] DETECT Study: Project # [id number], Laborer Mine: Eric Magana, PhD. SUMMARY: Goal: Establish test [...] contact study staff at ; after hours Laborer Mine via the [facility] hospital acetaldehyde converter operator . Please contact study team before resolving/deleting from patients problem list. Study phone number: [phone]. Diagnosis changed due to Research Module. Go to Snapshot for study details. Encounter for examination fo r normal comparison and control in clinical research program 07/26/2017 10/28/2021 Overview: DO NOT DELETE [facility] DETECT Study: Project # [id number], Laborer Mine: Jordan Umana, MS, MPH. SUMMARY: Goal: Establish [...] contact study staff at ; after hours Laborer Mine via the [facility] hospital acetaldehyde converter operator . - Please contact study team before resolving/deleting from patients problem list. Study phone number: [phone]. Diagnosis changed due to Research Module. Go [...] AM EDT Office Visit General Internal Medicine [facility] [address] [place] [address] Yamini Piper MD 200 [facility] [place] [address] 12/22/2023 2:00 PM EDT Office Visit General Internal Medicine [facility] [address] [place] [address] Yamini Piper MD [address] [facility] [place] [address] 02/01/2024 10:00 AM EST Cardiac Studies Cardiology, [facility] [place] [address] [facility] [place] [address] Scheduled Procedures Name Priority Associated Diagnoses Date/Ti [...] this encounter Medical Devices Implanted Type Area Supply Coordinator Device Identifier Shelf Expiration Date Model / Serial / Lot Plate Lcp Pilon 3.5 7h 240.082 - [id number] Implanted:Qty: 1 on 09/05/2023 by Ranjeet Chowdhury Jr., MD at [place] [facility] Right: Pelvis SYNTHES 240.082 / / Hip Head V40 Taper C C 222 0 - [id number] Implanted:Qty: 1 on 09/05/2023 by Ranjeet Chowdhury Jr., MD at [place] [facility] Right: Hip TONI : ORTHOPAEDICS 07/09/2028 6260-4-122 / / [id number] Screw Selftap 3.5x36 204.836 - [id number] Implanted:Qty: 2 on 09/05/2023 by Ranjeet Chowdhury Jr., MD at [place] [facility] Right: Pelvis SYNTHES 204.836 / / Screw Selftap 3.5x20 204.820 - [id number] Implanted:Qty: 2 on 09/05/2023 by Ranjeet Chowdhury Jr., MD at [place] [facility] Right: Pelvis SYNTHES 204.820 / / Implant Hip Acetab Shell 50d - [id number] Implanted:Qty: 1 on 09/05/2023 by Ranjeet Chowdhury Jr., MD at [place] [facility] Right: Hip TONI : ORTHOPAEDICS 11/28/2026 709-04-50D / / [id number] Screw Low Profile 6.6ynd45gi - [id number] Implanted:Qty: 1 on 09/05/2023 by Ranjeet Chowdhury Jr., MD at [place] [facility] Right: Hip TONI : ORTHOPAEDICS 04/05/2028 9123-0174 / / GDBJ Screw Low Profile 6.5bsy56uq - [id number] Implanted:Qty: 1 on 09/05/2023 by Ranjeet Chowdhury Jr., MD at [place] [facility] Right: Hip TONI : ORTHOPAEDICS 04/03/2028 3196-9523 / / GBCA Hip Liner Mdm Cocr 38 D - [id number] Implanted:Qty: 1 on 09/05/2023 by Ranjeet Chowdhury Jr., MD at [place] [facility] Right: Hip TONI : ORTHOPAEDICS 07/24/2028 626-00-38D / / [id number] Implant Stem Hip Colr Std 2 - [id number] Implanted:Qty: 1 on 09/05/2023 by Ranjeet Chowdhury Jr., MD at [place] [facility] Right: Hip TONI : ORTHOPAEDICS 03/13/2027 4229-1087 / / [id number] Mdm X3 Inser Liner 22x44 - [id number] Implanted:Qty: 1 on 09/05/2023 by Ranjeet Chowdhury Jr., MD at [place] [facility] Right: Hip TONI : ORTHOPAEDICS 09/15/2027 7236-2-244 / / [id number] documented as of this encounter Advance Directives [...] Agents on File Name Relationship Healthcare Agent [facility] Erika Brandt Adult Child Health Care Agen t (per Health Care Power of Chief Controller Center document) Care Teams Hardware Design Engineer Relationship Specialty Start Date End Date Yamini Piper MD 200 [facility] [place] [address] PCP - General Internal Medicine 05/03/18 documented as of this encounter
--- OUTSIDE RECORDS SUMMARY | 2023-12-09 09:54 | External Medical Summary ---
Author Name Unknown Address Unknown Organization K09:[facility] [place] [address] [address] Laboratory Report Ordering Provider Test Date Status KATHARINA GAITAN 10/24/2023 12:44:20 Final Discharge Order Observation Date Value Abnormality Reference (Units ) Status Phosphate 10/24/2023 12:44:20 3.8 2.5-4.8 (m g/dL) Final Performing Location [facility] [place] [address] [address]
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
--- OUTSIDE RECORDS SUMMARY | 2023-12-09 09:55 | External Medical Summary ---
Author Name Unknown Address Unknown Organization K09[facility] [place] [address] Laboratory Report Ordering Provider Test Date Status FREDERICK JAMISON 10/17/2023 05:55:28 Final Observation Date Value Abnormality Reference (Units ) Status WBC, Total 10/17/2023 05:55:28 5.65 4.00-10.8 0 (K/uL) Final RBC 10/17/2023 05:55:28 2.87 3.85-5.15 (M/uL) Final Hemoglobin 10/17/2023 05:55:28 8.7 Below low normal 12 .0-15.3 (g/dL) Final HCT 10/17/2023 05:55:28 29.0 Below low normal 36. 0-45.2 (%) Final MCV 10/17/2023 05:55:28 101.0 81.5-97.5 (fL) Final MCH 10/17/2023 05:55:28 30.3 27.0-34.0 (pg) Final MCHC 10/17/2023 05:55:28 30.0 32.0-36.0 (g/dL) Final RDW 10/17/2023 05:55:28 19.3 11.5-15.5 (%) Final Platelets 10/17/2023 05:55:28 215 140-400 (K /uL) Final MPV 10/17/2023 05:55:28 10.3 6.6-11.1 ( fL) Final Performing Location [facility] [place] [address]
--- OUTSIDE RECORDS SUMMARY | 2023-12-09 09:55 | External Medical Summary | Summary of Care ---
Author Name Unknown Organization [facility] Address [address] [place] [address] Phone [phone] Care Team Providers Care Project Admin Name Role Phone Yamini Piper MD Primary Care Provider [phone] Encounter Details Date Type Department Care Team [...] research program 07/26/2017 09/30/2019 Overview: [facility] DETECT Study: Project # [id number], Chief Optometry Service: Eric Magana, PhD. SUMMARY: Goal: Establish test [...] contact study staff at ; after hours Chief Optometry Service via the [facility] sling operator . Please contact study team before resolving/deleting from patients problem list. Study phone number: [phone]. Diagnosis changed due to Research Module. Go to Snapshot for study details. Encounter for examination fo r normal comparison and control in clinical research program 07/26/2017 10/28/2021 Overview: DO NOT DELETE [email or web address] DETECT Study: Project # [id number], Chief Optometry Service: Jordan Umana, MS, MPH. SUMMARY: Goal: Establish [...] contact study staff at ; after hours Chief Optometry Service via the [facility] hospital sling operator . - Please contact study team before resolving/deleting from patients problem list. Study phone number: [phone]. Diagnosis changed due to Research Module. Go [...] AM EDT Office Visit General Internal Medicine [facility] [address] [place] [address] Yamini Piper MD [address] [facility] [place] [address] 12/22/2023 2:00 PM EDT Office Visit General Internal Medicine [facility] [address] [place] [address] Yamini Piper MD [address] [facility] [place] [address] 02/01/2024 10:00 AM EST Cardiac Studies [facility]iology, [facility] [address] [facility] [address] [facility] [place] [address] Scheduled Procedures Name Priority Associated Diagnoses Date/Ti [...] this encounter Medical Devices Implanted Type Area Toe Laster Device Identifier Shelf Expiration Date Model / Serial / Lot Plate Lcp Pilon 3.5 7h 240.082 - [id number] Implanted:Qty: 1 on 09/05/2023 by Ranjeet Chowdhury Jr., MD at [place] [facility] Right: Pelvis SYNTHES 240.082 / / Hip Head V40 Taper C C 222 0 - [id number] Implanted:Qty: 1 on 09/05/2023 by Ranjeet Chowdhury Jr., MD at [place] [facility] Right: Hip TONI : ORTHOPAEDICS 07/09/2028 6260-4-122 / / [id number] Screw Selftap 3.5x36 204.836 - [id number] Implanted:Qty: 2 on 09/05/2023 by Ranjeet Chowdhury Jr., MD at [place] [facility] Right: Pelvis SYNTHES 204.836 / / Screw Selftap 3.5x20 204.820 - [id number] Implanted:Qty: 2 on 09/05/2023 by Ranjeet Chowdhury Jr., MD at [place] [facility] Right: Pelvis SYNTHES 204.820 / / Implant Hip Acetab Shell 50d - [id number] Implanted:Qty: 1 on 09/05/2023 by Ranjeet Chowdhury Jr., MD at [place] [facility] Right: Hip TONI : ORTHOPAEDICS 11/28/2026 709-04-50D / / [id number] Screw Low Profile 6.8zxm35qi - [id number] Implanted:Qty: 1 on 09/05/2023 by Ranjeet Chowdhury Jr., MD at [place] [facility] Right: Hip TONI : ORTHOPAEDICS 04/05/2028 4567-9794 / / GDBJ Screw Low Profile 6.5dvy99qp - [id number] Implanted:Qty: 1 on 09/05/2023 by Ranjeet Chowdhury Jr., MD at [place] [facility] Right: Hip TONI : ORTHOPAEDICS 04/03/2028 6124-6981 / / GBCA Hip Liner Mdm Cocr 38 D - [id number] Implanted:Qty: 1 on 09/05/2023 by Ranjeet Chowdhury Jr., MD at [place] [facility] Right: Hip TONI : ORTHOPAEDICS 07/24/2028 626-00-38D / / [id number] Implant Stem Hip Colr Std 2 - [id number] Implanted:Qty: 1 on 09/05/2023 by Ranjeet Chowdhury Jr., MD at [place] [facility] Right: Hip TONI : ORTHOPAEDICS 03/13/2027 5700-3236 / / [id number] Mdm X3 Inser Liner 22x44 - [id number] Implanted:Qty: 1 on 09/05/2023 by Ranjeet Chowdhury Jr., MD at [place] [facility] Right: Hip TONI : ORTHOPAEDICS 09/15/2027 7236-2-244 / / [id number] documented as of this encounter Advance Directives [...] Agen t (per Health Care Power of Auto Electrician document) Care Teams Project Admin Relationship Specialty Start Date End Date Yamini Piper MD [address] [facility] [place] [address] PCP - General Internal Medicine 05/03/18 documented as of this encounter
--- OUTSIDE RECORDS SUMMARY | 2023-12-09 09:55 | External Medical Summary ---
Author Name Unknown Address Unknown Organization K[facility] [place] [address] Laboratory Report Ordering Provider Test Date Status FREDERICK JAMISON 10/17/2023 05:55:28 Final Observation Date Value Abnormality Reference (Units ) Status BUN 10/17/2023 05:55:28 6 6-20 (mg/dL) Final Creatinine 10/17/2023 05:55:28 0.7 0.5-1.0 (mg/dL) Final Glomerular filtration rate/1.73 sq M.predicted [Volume Rate/Area] in Serum, Plasma or Blood by Creatinine-based formula (CKD-EPI) 10/17/2023 05:55:28 88 >=60 (mL/min) Final eGFR is calculated based on the CKD-EPI 2020 equation. Sodium 10/17/2023 05:55:28 141 135-146 (m mol/L) Final Potassium 10/17/2023 05:55:28 4.0 3.5-5.1 (m mol/L) Final Cl 10/17/2023 05:55:28 106 98-107 (mm ol/L) Final CO2 10/17/2023 05:55:28 25 22-32 (mmo l/L) Final Anion gap 10/17/2023 05:55:28 10 7-15 (mmol /L) Final Glucose 10/17/2023 05:55:28 97 70-120 (mg /dL) Final Calcium 10/17/2023 05:55:28 8.8 8.4-10.2 ( mg/dL) Final Performing Location [facility] [place] [address]
--- OUTSIDE RECORDS SUMMARY | 2023-12-09 09:55 | External Medical Summary | Summary of Care ---
Author Name Unknown Organization [facility] Address [address] [place] [address] Phone [phone] Care Team Providers Care Rock Crusher Name Role Phone Yamini Piper MD Primary Care Provider [phone] Reason for Visit * Reason Onset Date Comments Appointment 10/20/2023 Encounter Details Date Type Department Care Team (Late st Contact Info) Description 10/20/2023 Telephone General Internal Medicine [facility] [address] [facility] [place] [id number] Yamini Piper MD 200 [facility] [address] Appointment Allergies Active Allergy Reactions Criticality Noted Date Comments Pollen 06/17/2014 Nasal congestion documented as of this encounter (statuses as of 10/20/2023) Medications Medication Sig Dispensed Refills Start Date [...] as of this encounter (statuses as of 10/20/2023) Active Problems Problem Noted Date Diagnosed Date [...] as of this encounter (statuses as of 10/20/2023) Resolved Problems Problem Noted Date Diagnosed Date Resolved Date On peripheral parenteral nutrition (ppn) 10/04/2023 10/05/2023 Gastrointestinal hemorrhage associated with duodenal ulcer 09/29/2023 10/05/2023 Closed displaced fracture of posterior wall of right acetabulum 09/05/2023 10/05/2023 Encounter for examination fo r normal comparison and control in clinical research program 07/26/2017 09/30/2019 Overview: DO NOT DELETE [employer] DETECT Study: Project # [id number], Cooking Teacher: Eric Magana, PhD. SUMMARY: Goal: Establish [...] contact study staff at ; after hours Cooking Teacher via the [facility] hospital telegraphic typewriter operator chief . Please contact study team before resolving/deleting from patients problem list. Study phone number: [phone]. Diagnosis changed due to Research Module. Go to Snapshot for study details. Encounter for examination fo r normal comparison and control in clinical research program 07/26/2017 10/28/2021 Overview: DO NOT DELETE - [employer] DETECT Study: Project # [id number], Cooking Teacher: Jordan Umana, MS, MPH. SUMMARY: Goal: [...] contact study staff at ; after hours Cooking Teacher via the [facility] hospital telegraphic typewriter operator chief . - Please contact study team before resolving/deleting from patients problem list. Study phone number: [phone]. Diagnosis changed due to Research Module. Go to Snapshot for study details. Prediabetes 04/11/2017 05/09/2019 Overview: Per Prediabetes protocol #1 documented as of this encounter (statuses as of 10/20/2023) Immunizations Name Administration Dates Next Due COVID-19 [...] Miscellaneous Notes * Telephone Encounter - Claudia Fajardo MED ASSIST - 10/20/2023 3:07 PM EDT Detailed message left on daughters self identifying voice mail. * Telephone Encounter - Yamini Piper MD - 10/20/2023 1:37 PM EDT She just had labs so I will decide when to get next labs in visit * Telephone Encounter - Curtis Shell OSA - 10/20/2023 11:57 AM EDT Patient scheduled. Patients daughter asking If there is any bloodwork needed for this appointment. If so place orders and call daughter (Erika) to make her aware * Telephone Encounter - Poppy Bazan LPN - 10/20/2023 10:05 AM EDT Hops d/c available for 10/23 @ 1100 am with PCP> Reported message to form and supervisors. * Telephone Encounter - Beatrice Alfaro OSA - 10/20/2023 9:47 AM EDT No Appointments Available Patient declined appointments?: No What Visit Type is needed? Hospital Discharge If Acute Visit Type is needed, were surrounding clinics offered to patient (Yes/No)? Yes Was patient offered appointments with other available providers (Yes/No)? Yes See Call Details? (Yes or No): Yes Patient is discharging from hospital on 10-21-23 needs appt documented in this encounter Plan of Treatment Upcoming Encounters Date Type Department Care Team (Late st Contact Info) Description 10/23/2023 7:45 AM EDT Office Visit Orthopaedics, [place] [address] [place] [address] Ranjeet Chowdhury Jr., MD [address], [place] [id number] 10/24/2023 11:00 AM EDT Office Visit General Internal Medicine [facility] [address] [place] [address] Yamini Piper MD [address] [place] [address] 12/22/2023 2:00 PM EDT Office Visit General Internal Medicine [facility] [address] [place] [address] Yamini Piper MD 200 [facility] [place] [address] 02/01/2024 10:00 AM EST Cardiac Studies Cardiology, [facility] [address] [facility] [place] [address] [place] 132 [facility] [place] [address] Scheduled Procedures Name Priority Associated Diagnoses Date/Ti [...] this encounter Medical Devices Implanted Type Area Shearer Helper Device Identifier Shelf Expiration Date Model / Serial / Lot Plate Lcp Pilon 3.5 7h 240.082 - [id number] Implanted:Qty: 1 on 09/05/2023 by Ranjeet Chowdhury Jr., MD at [place] [facility] Right: Pelvis SYNTHES 240.082 / / Hip Head V40 Taper C C 222 0 - [id number] Implanted:Qty: 1 on 09/05/2023 by Ranjeet Chowdhury Jr., MD at OR [facility] Right: Hip TONI : ORTHOPAEDICS 07/09/2028 6260-4-122 / / [id number] Screw Selftap 3.5x36 204.836 - [id number] Implanted:Qty: 2 on 09/05/2023 by Ranjeet Chowdhury Jr., MD at [place] [facility] Right: Pelvis SYNTHES 204.836 / / Screw Selftap 3.5x20 204.820 - [id number] Implanted:Qty: 2 on 09/05/2023 by Ranjeet Chowdhury Jr., MD at [place] [facility] Right: Pelvis SYNTHES 204.820 / / Implant Hip Acetab Shell 50d - [id number] Implanted:Qty: 1 on 09/05/2023 by Ranjeet Chowdhury Jr., MD at OR [facility] Right: Hip TONI : ORTHOPAEDICS 11/28/2026 709-04-50D / / [id number] Screw Low Profile 6.5gtt13hk - [id number] Implanted:Qty: 1 on 09/05/2023 by Ranjeet Chowdhury Jr., MD at [place] [facility] Right: Hip TONI : ORTHOPAEDICS 04/05/2028 3291-0568 / / [id number] Screw Low Profile 6.6xhx64nx - [id number] Implanted:Qty: 1 on 09/05/2023 by Ranjeet Chowdhury Jr., MD at OR [facility] Right: Hip TONI : ORTHOPAEDICS 04/03/2028 1884-2083 / / GBCA Hip Liner Mdm Cocr 38 D - [id number] Implanted:Qty: 1 on 09/05/2023 by Ranjeet Chowdhury Jr., MD at [place] [facility] Right: Hip TONI : ORTHOPAEDICS 07/24/2028 626-00-38D / / [id number] Implant Stem Hip Colr Std 2 - [id number] Implanted:Qty: 1 on 09/05/2023 by Ranjeet Chowdhury Jr., MD at OR [facility] Right: Hip TONI : ORTHOPAEDICS 03/13/2027 4369-8631 / / [id number] Mdm X3 Inser Liner 22x44 - [id number] Implanted:Qty: 1 on 09/05/2023 by Ranjeet Chowdhury Jr., MD at OR [facility] Right: Hip TONI : ORTHOPAEDICS 09/15/2027 7236-2-244 / / [id number] documented as of this encounter Advance Directives [...] Agen t (per Health Care Power of Cable Maker document) Care Teams Rock Crusher Relationship Specialty Start Date End Date Yamini Piper MD [address] [place] [address] PCP - General Internal Medicine 05/03/18 documented as of this encounter
--- OUTSIDE RECORDS SUMMARY | 2023-12-09 09:55 | External Medical Summary | Summary of Care ---
Author Name Unknown Organization [facility] Address [address] [place] [address] Phone [phone] Care Team Providers Care Sports Instructor Name Role Phone Yamini Piper MD Primary Care Provider [phone] Encounter Details Date Type Department Care Team [...] research program 07/26/2017 09/30/2019 [facility] Study: Project # [id number], [place] Supervisor: Eric Magana, PhD. SUMMARY: Goal: Establish [...] contact study staff at ; after hours [place] Supervisor via the [facility] hospital bleach range operator . Please contact study team before resolving/deleting from patients problem list. Study phone number: [phone]. Diagnosis changed due to Research Module. Go to Snapshot for study details. Encounter for examination fo r normal comparison and control in clinical research program 07/26/2017 10/28/2021 Overview: DO NOT DELETE [employer] DETECT Study: Project # [id number], [place] Supervisor: Jordan Umana, MS, MPH. SUMMARY: Goal: [...] contact study staff at ; after hours [place] Supervisor via the [facility] hospital bleach range operator . - Please contact study team before resolving/deleting from patients problem list. Study phone number: [phone]. Diagnosis changed due to Research Module. Go [...] AM EDT Office Visit General Internal Medicine [facility] [address] [place] [address] Yamini Piper MD 200 [facility] [place] [address] 12/22/2023 2:00 PM EDT Office Visit General Internal Medicine [facility] [address] [place] [address] Yamini Piper MD 200 [facility] [place] [address] 02/01/2024 10:00 AM EST Cardiac Studies Cardiology, [facility] [address] [facility] [address] Scheduled Procedures Name Priority Associated Diagnoses Date/Ti [...] this encounter Medical Devices Implanted Type Area Buttonholer Device Identifier Shelf Expiration Date Model / Serial / Lot Plate Lcp Pilon 3.5 7h 240.082 - [id number] Implanted:Qty: 1 on 09/05/2023 by Ranjeet Chowdhury Jr., MD at [place] [facility] Right: Pelvis SYNTHES 240.082 / / Hip Head V40 Taper C C 222 0 - [id number] Implanted:Qty: 1 on 09/05/2023 by Ranjeet Chowdhury Jr., MD at [place] [facility] Right: Hip TONI : ORTHOPAEDICS 07/09/2028 6260-4-122 / / [id number] Screw Selftap 3.5x36 204.836 - [id number] Implanted:Qty: 2 on 09/05/2023 by Ranjeet Chowdhury Jr., MD at [place] [facility] Right: Pelvis SYNTHES 204.836 / / Screw Selftap 3.5x20 204.820 - [id number] Implanted:Qty: 2 on 09/05/2023 by Ranjeet Chowdhury Jr., MD at [place] [facility] Right: Pelvis SYNTHES 204.820 / / Implant Hip Acetab Shell 50d - [id number] Implanted:Qty: 1 on 09/05/2023 by Ranjeet Chowdhury Jr., MD at [place] [facility] Right: Hip TONI : ORTHOPAEDICS 11/28/2026 709-04-50D / / [id number] Screw Low Profile 6.5rps54dl - [id number] Implanted:Qty: 1 on 09/05/2023 by Ranjeet Chowdhury Jr., MD at [place] [facility] Right: Hip TONI : ORTHOPAEDICS 04/05/2028 4393-1062 / / GDBJ Screw Low Profile 6.1dbj57ih - [id number] Implanted:Qty: 1 on 09/05/2023 by Ranjeet Chowdhury Jr., MD at [place] [facility] Right: Hip TONI : ORTHOPAEDICS 04/03/2028 2599-5814 / / GBCA Hip Liner Mdm Cocr 38 D - [id number] Implanted:Qty: 1 on 09/05/2023 by Ranjeet Chowdhury Jr., MD at [place] [facility] Right: Hip TONI : ORTHOPAEDICS 07/24/2028 626-00-38D / / [id number] Implant Stem Hip Colr Std 2 - [id number] Implanted:Qty: 1 on 09/05/2023 by Ranjeet Chowdhury Jr., MD at [place] [facility] Right: Hip TONI : ORTHOPAEDICS 03/13/2027 4287-0037 / / [id number] Mdm X3 Inser Liner 22x44 - [id number] Implanted:Qty: 1 on 09/05/2023 by Ranjeet Chowdhury Jr., MD at [place] [facility] Right: Hip TONI : ORTHOPAEDICS 09/15/2027 7236-2-244 / / [id number] documented as of this encounter Advance Directives [...] Agents on File Name Relationship Healthcare Agent [facility] Communication Erika Brandt Adult Child Health Care Agen t (per Health Care Power of Sex Worker Or Escort document) Care Teams Sports Instructor Relationship Specialty Start Date End Date Yamini Piper MD 200 [facility] [place] [address] PCP - General Internal Medicine 05/03/18 documented as of this encounter
--- OUTSIDE RECORDS SUMMARY | 2023-12-09 09:55 | External Medical Summary | Summary of Care ---
Author Name Unknown Organization [facility] Address [address] [place] [address] Phone [phone] Care Team Providers Care Range Conservationist Name Role Phone Yamini Piper MD Primary Care Provider [phone] Encounter Details Date Type Department Care Team [...] research program 07/26/2017 09/30/2019 Overview: [facility] DET[facility] Study: Project # [id number], Extract Wringer: Eric Magana, PhD. SUMMARY: Goal: Establish test [...] contact study staff at ; after hours Extract Wringer via the [facility] hospital web press operator apprentice . Please contact study team before resolving/deleting from patients problem list. Study phone number: [phone]. Diagnosis changed due to Research Module. Go to Snapshot for study details. Encounter for examination fo r normal comparison and control in clinical research program 07/26/2017 10/28/2021 Overview: DO NOT DELETE [employer] DETECT Study: Project # [id number], Extract Wringer: Jordan Umana, MS, MPH. SUMMARY: Goal: Establish [...] contact study staff at ; after hours Extract Wringer via the [facility] hospital web press operator apprentice . - Please contact study team before resolving/deleting from patients problem list. Study phone number: [phone]. Diagnosis changed due to Research Module. Go [...] AM EDT Office Visit General Internal Medicine [facility] [address] [place] [address] Yamini Piper MD 200 [facility] [place] [address] 12/22/2023 2:00 PM EDT Office Visit General Internal Medicine [facility] [address] [place] [address] Yamini Piper MD 200 [facility] [place] [address] 02/01/2024 10:00 AM EST Cardiac Studies Cardiology, [facility] [place] [address] [facility] 132 [facility] [address] Scheduled Procedures Name Priority Associated Diagnoses Date/Ti [...] this encounter Medical Devices Implanted Type Area Instructor Flying Device Identifier Shelf Expiration Date Model / Serial / Lot Plate Lcp Pilon 3.5 7h 240.082 - [id number] Implanted:Qty: 1 on 09/05/2023 by Ranjeet Chowdhury Jr., MD at [place] [facility] Right: Pelvis SYNTHES 240.082 / / Hip Head V40 Taper C C 222 0 - [id number] Implanted:Qty: 1 on 09/05/2023 by Ranjeet Chowdhury Jr., MD at [place] [facility] Right: Hip TONI : ORTHOPAEDICS 07/09/2028 6260-4-122 / / [id number] Screw Selftap 3.5x36 204.836 - [id number] Implanted:Qty: 2 on 09/05/2023 by Ranjeet Chowdhury Jr., MD at [place] [facility] Right: Pelvis SYNTHES 204.836 / / Screw Selftap 3.5x20 204.820 - [id number] Implanted:Qty: 2 on 09/05/2023 by Ranjeet Chowdhury Jr., MD at [place] [facility] Right: Pelvis SYNTHES 204.820 / / Implant Hip Acetab Shell 50d - [id number] Implanted:Qty: 1 on 09/05/2023 by Ranjeet Chowdhury Jr., MD at [place] [facility] Right: Hip TONI : ORTHOPAEDICS 11/28/2026 709-04-50D / / [id number] Screw Low Profile 6.4det40lf - [id number] Implanted:Qty: 1 on 09/05/2023 by Ranjeet Chowdhury Jr., MD at [place] [facility] Right: Hip TONI : ORTHOPAEDICS 04/05/2028 2863-8958 / / GDBJ Screw Low Profile 6.7ztz93po - [id number] Implanted:Qty: 1 on 09/05/2023 by Ranjeet Chowdhury Jr., MD at [place] [facility] Right: Hip TONI : ORTHOPAEDICS 04/03/2028 5663-9655 / / GBCA Hip Liner Mdm Cocr 38 D - [id number] Implanted:Qty: 1 on 09/05/2023 by Ranjeet Chowdhury Jr., MD at [place] [facility] Right: Hip TONI : ORTHOPAEDICS 07/24/2028 626-00-38D / / [id number] Implant Stem Hip Colr Std 2 - [id number] Implanted:Qty: 1 on 09/05/2023 by Ranjeet Chowdhury Jr., MD at [place] [facility] Right: Hip TONI : ORTHOPAEDICS 03/13/2027 4677-6015 / / [id number] Mdm X3 Inser Liner 22x44 - [id number] Implanted:Qty: 1 on 09/05/2023 by Ranjeet Chowdhury Jr., MD at [place] [facility] Right: Hip TONI : ORTHOPAEDICS 09/15/2027 7236-2-244 / / [id number] documented as of this encounter Advance Directives [...] Agents on File Name Relationship Healthcare Agent [facility] Erika Brandt Adult Child Health Care Agen t (per Health Care Power of Associate Professor Of Biostatistics document) Care Teams Range Conservationist Relationship Specialty Start Date End Date Yamini Piper MD [address] [place] [address] PCP - General Internal Medicine 05/03/18 documented as of this encounter
--- OUTSIDE RECORDS SUMMARY | 2023-12-09 09:55 | External Medical Summary | Summary of Care ---
Author Name Unknown Organization [facility] Address [address] [place] [address] Phone [phone] Care Team Providers Care Manager College Name Role Phone Yamini Piper MD Primary Care Provider [phone] Encounter Details Date Type Department Care Team [...] program 07/26/2017 09/30/2019 Overview: DO NOT DELETE [facility] DETECT Study: Project # [id number], [place] Supervisor: Eric Magana, PhD. SUMMARY: Goal: Establish [...] contact study staff at ; after hours Territory Supervisor via the [facility] hospital equipment operator wage hand . Please contact study team before resolving/deleting from patients problem list. Study phone number: [phone]. Diagnosis changed due to Research Module. Go to Snapshot for study details. Encounter for examination fo r normal comparison and control in clinical research program 07/26/2017 10/28/2021 Overview: DO NOT DELETE - Offsite [facility] DETECT Study: Project # [id number], Territory Supervisor: Jordan Umana, MS, MPH. SUMMARY: Goal: [...] contact study staff at ; after hours Territory Supervisor via the [facility] hospital equipment operator wage hand . - Please contact study team before resolving/deleting from patients problem list. Study phone number: [phone]. Diagnosis changed due to Research Module. Go [...] Team (Late st Contact Info) Description 10/23/2023 7:46 AM EDT Hospital Encounter Radiology, [place] [address] [place] [facility] [place] [address] Arrived 10/24/2023 11:00 AM EDT Office Visit General Internal Medicine [facility] 200 [facility] [address] [place] [address] Yamini Piper MD 200 [facility] [place] [address] 12/22/2023 2:00 PM EDT Office Visit General Internal Medicine [facility] 200 [facility] [place] [address] Yamini Piper MD 200 [facility] [place] [address] 02/01/2024 10:00 AM EST Cardiac Studies Cardiology, [facility] 132 [place] [address] [facility] 132 [place] [address] Scheduled Procedures Name Priority Associated Diagnoses Date/Ti [...] this encounter Medical Devices Implanted Type Area Banquet Kitchen Supervisor Device Identifier Shelf Expiration Date Model / Serial / Lot Plate Lcp Pilon 3.5 7h 240.082 - [id number] Implanted:Qty: 1 on 09/05/2023 by Ranjeet Chowdhury Jr., MD at [place] [facility] Right: Pelvis SYNTHES 240.082 / / Hip Head V40 Taper C C 222 0 - [id number] Implanted:Qty: 1 on 09/05/2023 by Ranjeet Chowdhury Jr., MD at [place] [facility] Right: Hip TONI : ORTHOPAEDICS 07/09/2028 6260-4-122 / / [id number] Screw Selftap 3.5x36 204.836 - [id number] Implanted:Qty: 2 on 09/05/2023 by Ranjeet Chowdhury Jr., MD at [place] [facility] Right: Pelvis SYNTHES 204.836 / / Screw Selftap 3.5x20 204.820 - [id number] Implanted:Qty: 2 on 09/05/2023 by Ranjeet Chowdhury Jr., MD at [place] [facility] Right: Pelvis SYNTHES 204.820 / / Implant Hip Acetab Shell 50d - [id number] Implanted:Qty: 1 on 09/05/2023 by Ranjeet Chowdhury Jr., MD at [place] [facility] Right: Hip TONI : ORTHOPAEDICS 11/28/2026 709-04-50D / / [id number] Screw Low Profile 6.7atm90ek - [id number] Implanted:Qty: 1 on 09/05/2023 by Ranjeet Chowdhury Jr., MD at [place] [facility] Right: Hip TONI : ORTHOPAEDICS 04/05/2028 6574-2044 / / GDBJ Screw Low Profile 6.5fhu92en - [id number] Implanted:Qty: 1 on 09/05/2023 by Ranjeet Chowdhury Jr., MD at [place] [facility] Right: Hip TONI : ORTHOPAEDICS 04/03/2028 6223-6002 / / GBCA Hip Liner Mdm Cocr 38 D - [id number] Implanted:Qty: 1 on 09/05/2023 by Ranjeet Chowdhury Jr., MD at [place] [facility] Right: Hip TONI : ORTHOPAEDICS 07/24/2028 626-00-38D / / [id number] Implant Stem Hip Colr Std 2 - [id number] Implanted:Qty: 1 on 09/05/2023 by Ranjeet Chowdhury Jr., MD at [place] [facility] Right: Hip TONI : ORTHOPAEDICS 03/13/2027 6786-8334 / / [id number] Mdm X3 Inser Liner 22x44 - [id number] Implanted:Qty: 1 on 09/05/2023 by Ranjeet Chowdhury Jr., MD at [place] [facility] Right: Hip TONI : ORTHOPAEDICS 09/15/2027 7236-2-244 / / [id number] documented as of this encounter Advance Directives [...] on File Name Relationship Healthcare Agent [facility] Communication Erika Brandt Adult Child Health Care Agen t (per Health Care Power of Client Relationship Consultant document) Care Teams Manager College Relationship Specialty Start Date End Date Yamini Piper MD 200 [facility] [place] [address] PCP - General Internal Medicine 05/03/18 documented as of this encounter
--- NOTE | 2023-12-09 10:16 | History & Physical Report ---
Date of Service December 09, 2023 Assessment & Plan (1) C. difficile colitis: (2) Acute lower GI bleeding: (3) Anemia associated with acute blood loss: Plan Beth Brandt is a 78y/o F with PMHx significant for acquired hypothyroidism, hyperlipidemia, prediabetes, DVT of bilateral lower extremities [09/2023 - on Eliquis], bilateral carotid artery stenosis, SSS s/p pacemaker placement, duodenal ulcer perforation, retroperitoneal hemorrhage, C. difficile colitis, history of acute blood loss anemia and asthma who presented to the ED for evaluation secondary to bloody stools. Patient now with diarrhea every 2-3 hours and intermittent abdominal cramping for the past week. She had C. difficile testing done that was ordered by her PCP on 12/07/2023. This unfortunately did come back positive and a 2-week prescription for oral vancomycin was sent to her pharmacy. Patient however did not take any of this antibiotic due to issues regarding insurance authorization. She reports that she had an episode of august bloody diarrhea this morning around 6AM which prompted her to come in for evaluation. Describes the blood in her stool this morning as bright red. She did not previously had any episodes of bloody diarrhea since this all started last Monday. Recurrent C. Difficile Colitis & Anemia ISO Acute Lower GI Bleeding: Vitals stable. Hemoglobin 11.6 on presentation. No leukocytosis. CXR was negative. CTAP showed findings compatible with a nonspecific oneill-proctocolitis. CTAP also showed mild bilateral hydronephrosis with findings suspicious for cystitis however UA was negative for infection and patient is without any urinary complaints. Will proceed with Dificid for now and monitor hemoglobin level closely with repeat labs tonight. GI consulted given her recurrence of C. difficile infection, appreciate their recommendations/input. Bowel rest for now with full liquid diet. Isolation precautions. Plan to slowly advance her diet as tolerated. Will need to transfuse the patient if her hemoglobin drops below 7. Patient was made aware of this and agreeable to the situation if that were to occur, however will need to obtain blood consent first as this was not yet done. Hypokalemia: K+ 2.6 on presentation, likely secondary to GI losses. S/p 20mEq po KCl and 10mEq IV KCl in the ED. Will give an additional 40mEq po KCl now and then proceed with 40mEq po KCl BID starting tonight. Follow daily AM labs and replete K+ as needed. Elevated Troponin: Initial troponin was 16 on presentation, repeat troponin was 15.6 at 14:14. Patient without chest pain, ? likely elevated secondary to infection. EKG in the ED was without any overtly acute ischemic changes. Will continue to trend troponin Q6H. EKG with chest pain as needed. Daily EKG x 1. Chronic BLE DVTs: Patient was recently confined here at [facility] on 10/11/2023-10/16/2023 with C. difficile colitis and completed a 10-day course of oral vancomycin. She was also diagnosed with acute BLE DVTs during that admission. She had to be treated with IV heparin and then was transitioned to oral Eliquis at time of discharge. She is to complete a 3-month course of Eliquis. BLE venous Doppler ultrasound in the ED showed chronic bilateral DVT - findings have likely improved from prior study; no acute DVT identified. Will hold Eliquis for now in setting of active lower GI bleeding. However, if her hemoglobin remains stable, plan to restart her Eliquis as soon as possible. Other Chronic Medical Conditions: HLD, hypothyroidism --> Can continue the medications for these specific conditions. Home PPI on hold for now ISO C. difficile colitis infection. 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 Will proceed with TEDs for now. Code Status: FULL CODE PCP: Yamini Piper MD Disposition: Admit to Med/Surg + Telemetry - Likely to be admitted for 3 to 4 days depending on how her hospital course proceeds. Patient seen in collaboration with Dr. Gil. Please see addendum. I spent a total of 55 minutes coordinating, documenting, and providing care for this patient excluding time spent in the performance of separately billed services. This included personally reviewing all current laboratories and imaging studies, medical reconciliation, outpatient chart review and discussion with specialists. This chart was completed in part utilizing Speech Voice Recognition Software. Grammatical errors, random word insertions, pronoun errors, and incomplete sentences are an occasional consequence of this system due to software limitations, ambient noise, and hardware issues. Any formal questions or concerns about the content, text, or information contained within the body of this dictation should be directly addressed to the provider for clarification. History of Present Illness Chief Complaint: Bloody Stools Primary Care Provider: Yamini Piper MD Beth Brandt is a 78y/o F with PMHx significant for acquired hypothyroidism, hyperlipidemia, prediabetes, DVT of bilateral lower extremities [09/2023 - on Eliquis], bilateral carotid artery stenosis, SSS s/p pacemaker placement, duodenal ulcer perforation, retroperitoneal hemorrhage, C. difficile colitis, history of acute blood loss anemia and asthma who presented to the ED for evaluation secondary to bloody stools. History obtained from patient and associated chart review. Patient was recently confined here at [facility] on 10/11/2023-10/16/2023 with C. difficile colitis and completed a 10-day course of oral vancomycin. She was also diagnosed with BLE DVTs during that admission. She had to be treated with IV heparin and then was transitioned to oral Eliquis at time of discharge. She ended up being discharged to [facility]. She is to complete a 3-month course of Eliquis. Prior to that, the patient was admitted under our service on 09/27/2023 with rectal bleed and was found to have a hemoglobin was 6.4 on presentation. In the ED, the patient had an unresponsive episode and repeat hemoglobin came back as 4.8 at that time --> she was transferred to the ICU and got 2 units of PRBCs urgently. Patient was s/p EGD which showed active bleeding in the duodenum postbulbar region which was difficult to treat. It ended up being treated with epi, cautery and finally one hemostatic [place] scientific clip was placed with success. GI recommended transfer to a tertiary center for IR if bleeding recurred. She was s/p a total of 5 units of PRBCs and 1 unit of cryoprecipitate. Her hemoglobin went up to 8.3 from 4.8, and then unfortunately it downtrended again to 6.9 and the ICU contacted [facility] for evaluation by IR and she was accepted in transfer --> patient was life flighted to [facility] on 09/29/2023. Imaging at [facility] showed a duodenal ulcer with visible vessel but no ongoing bleeding and micro perforation with local containment. She was also treated for sepsis due to ulcer perforation with Rocephin and Flagyl. Upper GI series on 10/03/2023 showed no evidence of duodenal leak but mild narrowing of the postbulbar duodenum at the level of the clip which was thought to be likely inflammatory. Patient was cleared for oral intake by surgery and tolerated a diet. PPN was discontinued on 10/04/2023. Patient was discharged to [facility] on October 05, 2023. Patient now with diarrhea every 2-3 hours and intermittent abdominal cramping for the past week. She had C. difficile testing done that was ordered by her PCP on 12/07/2023. This unfortunately did come back positive and a 2-week prescription for oral vancomycin was sent to her pharmacy. Patient however has not taken any of this antibiotic due to issues regarding insurance authorization. She reports that she had an episode of august bloody diarrhea this morning around 6AM which prompted her to come in for evaluation. Describes the blood in her stool this morning as bright red. She did not previously had any ep isodes of bloody diarrhea since this all started last Monday. No fevers but does endorse some chills. Some intermittent dizziness/lightheadedness but denies any recent falls or trauma. She has been eating a bland diet consisting of bananas, rice, apples and toast. Allergies Allergy/AdvReac Type Severity Reaction Status Date / Time No Known Drug Allergies Allergy Unknown . Verified 09/27/23 22:40 Home Medications Medication Instructions Recorded Confirmed Type atorvastatin 40 mg tablet 40 mg PO DAILY 10/11/23 12/09/23 History omeprazole 40 mg capsule,delayed 40 mg PO BID 10/11/23 12/09/23 History release apixaban 5 mg tablet (Eliquis) 5 mg PO BID 12/09/23 12/09/23 History baclofen 10 mg tablet 10 mg PO HS PRN Pain 12/09/23 12/09/23 History ferrous sulfate 325 mg (65 mg 325 mg PO BID 12/09/23 12/09/23 History iron) tablet (FeroSul) levothyroxine 88 mcg tablet 88 mcg PO QAM 12/09/23 12/09/23 History vits no.124-ferrous fum 1 tab PO QAM 12/09/23 12/09/23 History 27 mg iron-folic acid 800 mcg tablet ( Vitamin) Past Med/Surg History Problem List Elevated troponin Anemia associated with acute blood loss Hypokalemia (Acute) Acute lower GI bleeding (Acute) C. difficile colitis (Acute) Near syncope (Acute) Acute deep vein thrombosis (DVT) (Acute) Hypothyroidism Hyperlipidemia Acute GI bleeding ABLA (acute blood loss anemia) (Acute) Bloody diarrhea (Acute) Pacemaker (Acute) pacemaker implanted d/ "low bp and passing out" followed by Dr. Brasher (device at home checking device) medtronic Near syncope (Acute) Encounter for pre-operative examination Family hx of colon cancer Medical History Osteoarthritis Migraine "flashing headaches" Syncope Asthma as a child/no problems now Surgical History History of open reduction and internal fixation (ORIF) procedure left tib/fib History of colonoscopy History of tooth extraction History of tonsillectomy History of cataract surgery rt eye Family History Mother Family history of diabetes mellitus Brother Family history of diabetes mellitus Other Family hx of colon cancer Social History Smoking Status: Never smoker Second Hand Exposure: No; Do You Dip or Chew Tobacco: No; Tobacco Cessation Education Requested by Patient: No Hx Alcohol Use: No Hx Substance Use: No Preferred Language: [place] Communication Ability: Effective 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 Physical Exam Physical Exam: Please refer to Dr. Gil's addendum for physical examination findings. Results & Data Results & Data Vital Signs (Past 12 Hours) Vital Signs Temp Pulse Resp BP Pulse Ox O2 Del Method O2 Flow Rate 12/09/23 08:10 85 12/09/23 08:08 87 18 94 Room Air 12/09/23 08:03 96 Room Air 0 12/09/23 07:44 36.6 C 87 18 161/83 H 97 Room Air Laboratory Results Short CBC 12/09/23 Range/Units 08:02 WBC 6.06 (4.8-10.8) K/ul Hgb 11.6 L (12.0-16.0) g/dl Hct 36.1 L (37.0-47.0) % Plt Count 162 (130-400) K/uL BMP 12/09/23 08:02 Sodium 140 Potassium 2.7 L Chloride 105 Carbon Dioxide 26 BUN 8 Creatinine 0.64 Glucose 101 H Calcium 8.9 Liver Function 12/09/23 Range/Units 08:02 Total Bilirubin 0.4 (0.2-1.0) mg/dl AST 19 (13-39) U/L ALT 11 (7-52) U/L Alkaline Phosphatase 91 (34-104) U/L Albumin 3.9 (3.4-5.0) gm/dl Urine 12/09/23 Range/Units 08:49 Urine Color Yellow Urine Appearance Clear (Clear) Urine pH 6.5 (4.5-7.5) Ur Specific [place] 1.003 (1.000-1.030) Urine Protein Negative (Negative) Urine Glucose (UA) Negative (Negative) Diagnostic Findings Abdomen/Pelvis CT 12/09/23 08:[address] WITH IV CONTRAST CT DOSE: 710.97 mGy.cm HISTORY: Acute onset abdominal pain with GI bleed GIB TECHNIQUE: Multiaxial CT images of the abdomen and pelvis were performed following the IV administration of 94 cc of Optiray, A dose lowering technique was utilized adhering to the principles of ALARA. COMPARISON STUDY: 10/12/2023 FINDINGS: Cardiomegaly with partially imaged pacer leads. Low suspicion 4 mm solid nodule in the basal left lower lobe on image 20 series 3. No pneumatosis or pneumoperitoneum. Unremarkable spleen, pancreas, gallbladder and adrenal glands. There are a few small scattered hypodensities of the liver suggestive of probable cysts. Patency of the hepatic and portal veins. Urinary bladder wall thickening with partial distention. Mild bilateral hydronephrosis, right greater than left. No urolith. Atherosclerosis of the aorta and branch vessels. No lymphadenopathy identified. No small bowel obstruction. There is mucosal hyperemia of circumferential wall thickening involving the majority of the colon and rectum, most pronounced in the rectum and sigmoid. Normal appendix. Similar findings were also present on the prior study. Scattered colonic air-fluid levels. Degenerative changes of the spine, pelvis and left hip. Right hip arthroplasty. IMPRESSION: 1. Findings compatible with a nonspecific oneill-proctocolitis, likely infectious or inflammatory. Similar findings were also present on the 10/12/2023 study.. 2. No bowel obstruction or pneumoperitoneum. 3. Mild bilateral hydronephrosis with findings suspicious for cystitis. 4. No renal or ureteral calculi. ACT 112: Negative or not required by law. The above report was generated using voice recognition software. It may contain grammatical, syntax or spelling errors. Electronically signed by: Davis Winkler M.D. 12/09/2023 9:46 AM Chest X-Ray 12/09/23 08:03 XR chest 1V portable HISTORY: 78 years-old Female GIB acute chest abdominal pain with GI bleed COMPARISON: 823 TECHNIQUE: AP view of the chest FINDINGS: Cardiac silhouette is normal in size. The left subclavian pacer. No pneumothorax, pleural effusion or airspace consolidation. The bones of the chest appear grossly intact. IMPRESSION: No acute process. ACT 112: Negative or not required by law. The above report was generated using voice recognition software. It may contain grammatical, syntax or spelling errors. Electronically signed by: Davis Winkler M.D. 12/09/2023 8:44 AM Medications Administered Discontinued Medications Potassium Chloride (K Edin / Wtr) 10 meq in 100 mls @ 100 mls/hr IV ONE ONE Stop: 12/09/23 09:32 Last Infusion: 12/09/23 10:04 Dose: Infused Documented By: Admin: 12/09/23 08:40 Dose: 100 mls/hr Documented By: MMF Ioversol (Optiray 320 100ml) 94 ml IV ONCE ONE Stop: 12/09/23 08:56 Last Admin: 12/09/23 08:56 Dose: 94 ml Documented By: JAR Potassium Chloride (Potassium Chloride Crtab 20 Meq Tabcr) 20 meq PO NOW STA Stop: 12/09/23 08:34 Last Admin: 12/09/23 08:40 Dose: 20 meq Documented By: MMF Code Status & VTE Plan Code Status FULL CODE Supervising Physician Co-Signing Physician Notes Patient is a 78-year-old female with past medical history of recent C. difficile infection who presented to the hospital with 1 week of diarrhea and bright red blood per rectum presents today morning. She is on Eliquis for DVT started 2 months ago. She had seen her primary care doctor recently; was found to have C. difficile infection and was given prescription for oral vancomycin which she has not started. On physical exam; Constitutional: Alert oriented x 3; not in distress. Respiratory: normal respiratory effort, lungs clear to auscultation, no wheeze, rales, rhonchi. Normal insp/exp effort, no accessory muscle use Cardiovascular: RRR, no murmur, no edema Vessels: no JVD or carotid bruit Chest: normal inspection of chest Abdomen: Mild periumbilical pain. Musculoskeletal: no cyanosis or clubbing, extremities motor strength 5/5 Skin: no rashes, warm and dry normal turgor Neurologic: PERRL, EOMI, accommodation nl, no face palsy, no dysarthria CN's II- XI intact bilaterally and moves all extremities Psychiatric: A+Ox3, euthymic affect Assessment/plan Recurrent C. difficile infection C. difficile colitis Lower GI bleed Recent DVT Treated with oral vancomycin previously Will start her on fidaxomicin GI consult Monitor for diarrhea Repeat CBC in the evening. Transfuse if hemoglobin is less than 7 Will hold Eliquis for the time being. Obtain venous duplex to see if patient has acute DVT. If hemoglobin is stable; plan to resume anticoagulation Continue other home meds I have reviewed the advanced practitioner's documentation, and I agree with, and take responsibility for the plan of care I spent a total of 30 minutes coordinating, documenting, and providing care for this patient excluding time spent in the performance of separately billed services. All of the aforementioned completed while collaborating with the assigned advanced practitioner for a full treatment plan
[2023-12-09] MEDS: CHERRY SYRUP 5 ML UDP PO STA (10:56)
[2023-12-09] MEDS: VANCOMYCIN HCL 250 MG/5 ML SOLN PO STA (10:57)
--- NOTE | 2023-12-09 11:04 | Electrocardiogram Report ---
Test Reason : Blood Pressure : */* mmHG Vent. Rate : 85 BPM Atrial Rate : 85 BPM P-R Int : 150 ms QRS Dur : 100 ms QT Int : 390 ms P-R-T Axes : 65 33 46 degrees QTcB Int : 464 ms Normal sinus rhythm Incomplete right bundle branch block Abnormal ECG When compared with ECG of 11-Oct-2023 02:43, No significant change was found Confirmed by Pacheco Lindsey ([id number]) on 12/09/2023 11:03:37 AM Referred By: REFERRED SELF Confirmed By: Pacheco Lindsey
[2023-12-09] MEDS ORDERED: BACLOFEN 10 MG TAB PO PRN (11:07)
[2023-12-09] MEDS: FIDAXOMICIN 200 MG TAB PO SCH (11:51)
--- OUTSIDE RECORDS SUMMARY | 2023-12-09 13:15 | External Medical Summary | Summary of Care ---
Author Name Unknown Organization [facility] Address [address] [place] [address] Phone [phone] Care Team Providers Care Slitter Cut Off Operator Name Role Phone Yamini Piper MD Primary Care Provider [phone] Reason for Visit * Reason Onset Date Comments Medication Question 12/08/2023 Encounter Details Date Type Department Care Team (Late st Contact Info) Description 12/08/2023 Telephone General Internal Medicine [facility] [address] [place] [address] Yamini Piper MD [address] [place] [address] Medication Question Allergies Active Allergy Reactions Criticality Noted Date Comments Pollen 06/17/2014 Nasal congestion documented as of this encounter (statuses as of 12/09/2023) Medications Medication Sig Dispensed Refills Start Date [...] as of this encounter (statuses as of 12/09/2023) Active Problems Problem Noted Date Diagnosed Date [...] as of this encounter (statuses as of 12/09/2023) Resolved Problems Problem Noted Date Diagnosed Date Resolved Date On peripheral parenteral nutrition (ppn) 10/04/2023 10/05/2023 Gastrointestinal hemorrhage associated with duodenal ulcer 09/29/2023 10/05/2023 Closed displaced fracture of posterior wall of right acetabulum 09/05/2023 10/05/2023 Encounter for examination fo r normal comparison and control in clinical research program 07/26/2017 09/30/2019 Overview: DO NOT DELETE [facility] DETECT Study: Project # [id number], Engraver Copperplate: Eric Magana, PhD. SUMMARY: Goal: Establish test [...] contact study staff at ; after hours Engraver Copperplate via the [facility] hospital drilling machine operator . Please contact study team before resolving/deleting from patients problem list. Study phone number: [phone]. Diagnosis changed due to Research Module. Go to Snapshot for study details. Encounter for examination fo r normal comparison and control in clinical research program 07/26/2017 10/28/2021 Overview: DO NOT DELETE - [facility] Study: Project # [id number], Engraver Copperplate: Jordan Umana, MS, MPH. SUMMARY: Goal: Establish [...] contact study staff at ; after hours Engraver Copperplate via the [facility] drilling machine operator . - Please contact study team before resolving/deleting from patients problem list. Study phone number: [phone]. Diagnosis changed due to Research Module. Go to Snapshot for study details. Prediabetes 04/11/2017 05/09/2019 Overview: Per Prediabetes protocol #1 documented as of this encounter (statuses as of 12/09/2023) Immunizations Name Administration Dates Next Due COVID-19 [...] encounter Miscellaneous Notes * Telephone Encounter - Gisell Bertrand LPN - 12/09/2023 8:18 AM EDT Called to discuss with patient, states that she is in the ER currently. States she has bloody stool. 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 Did advise patient to let the ER know of diagnosis and need for ATB for C Diff. * Addendum Note - Yamini Piper MD [...] still an issue with RX. I called Chary Louis advised the Vancomycin needs a prior auth. Do you want a prior auth completed or send a different medication? Please advise. * Telephone Encounter - Russel Self LPN - 12/08/2023 10:56 AM EDT Patient calling today. She is at [facility] to picked edge sewing machine operator Vancomycin and pharmacist needs Sig clarified. 14 or 7 days? "Sig - Route: Take 1 Capsule by mouth every 6 hours for 14 days. For 7 days" Per order disp 56=14 days [facility] pharmacy made aware. FYI documented in this encounter Plan of Treatment Upcoming Encounters Date Type Department Care Team (Late st Contact Info) Description 01/02/2024 9:00 AM EST Office Visit General Internal Medicine [facility] 200 [facility] [place] [address] Yamini Piper MD 200 [facility] [place] [address] 02/01/2024 10:00 AM EST Cardiac Studies Cardiology, [facility] 132 [place] [address] [place], Pacer Clinic [facility] [address] [place] [address] 02/16/2024 8:00 AM EST Office Visit Gastroenterology, [facility] [address] [place] [address] Cody Bedolla CRNP 132 [place] [address] 03/25/2024 10:30 AM EST Office Visit Orthopaedics, [place] [address] [place], [place] [id number] [place] Nunez, Ranjeet Drake MD [address] [place] [address] Scheduled Procedures Name Priority Associated Diagnoses Date/Ti me COLONOSCOPY FLEXIBLE PROXIMA L DIAGNOSTIC Recall History of colonic polyps Health Maintenance Due Date Last Done Comments Adult Wellness Visit 04/06/2022 04/06/2021 Influenza Vaccine (FLU shot) (#1) 2023 12/15/2022, 12/15/2022, 11/11/2021, Additional history exists Colonoscopy 09/15/2024 09/16/2019, 08/28, 01/17/2014, Additional history exists Depression Screening 12/07/2024 12/08/2023 HbA1c 12/07/2024 12/08/2023, 05/28, 12/12/2022, Additional history exists TSH 12/07/2024 12/08/2023, 09/28, 09/25/2023, Additional history exists DXA Scan 08/13/2027 08/12/2020, [...] this encounter Medical Devices Implanted Type Area Gold Plater Device Identifier Shelf Expiration Date Model / Serial / Lot Plate Lcp Pilon 3.5 7h 240.082 - [id number] Implanted:Qty: 1 on 09/05/2023 by Ranjeet Chowdhury Jr., MD at OR [facility] Right: Pelvis SYNTHES 240.082 / / Hip Head V40 Taper C C 222 0 - [id number] Implanted:Qty: 1 on 09/05/2023 by Ranjeet Chowdhury Jr., MD at OR [facility] Right: Hip TONI : ORTHOPAEDICS 07/09/2028 6260-4-122 / / [id number] Screw Selftap 3.5x36 204.836 - [id number] Implanted:Qty: 2 on 09/05/2023 by Ranjeet Chowdhury Jr., MD at OR [facility] Right: Pelvis SYNTHES 204.836 / / Screw Selftap 3.5x20 204.820 - [id number] Implanted:Qty: 2 on 09/05/2023 by Ranjeet Chowdhury Jr., MD at OR [facility] Right: Pelvis SYNTHES 204.820 / / Implant Hip Acetab Shell 50d - [id number] Implanted:Qty: 1 on 09/05/2023 by Ranjeet Chowdhury Jr., MD at OR [facility] Right: Hip TONI : ORTHOPAEDICS 11/28/2026 709-04-50D / / [id number] Screw Low Profile 6.7fvd37jm - [id number] Implanted:Qty: 1 on 09/05/2023 by Ranjeet Chowdhury Jr., MD at OR [facility] Right: Hip TONI : ORTHOPAEDICS 04/05/2028 4212-4136 / / GDBJ Screw Low Profile 6.8uyu73md - [id number] Implanted:Qty: 1 on 09/05/2023 by Ranjeet Chowdhury Jr., MD at OR [facility] Right: Hip TONI : ORTHOPAEDICS 04/03/2028 8567-3453 / / GBCA Hip Liner Mdm Cocr 38 D - [id number] Implanted:Qty: 1 on 09/05/2023 by Ranjeet Chowdhury Jr., MD at OR [facility] Right: Hip TONI : ORTHOPAEDICS 07/24/2028 626-00-38D / / [id number] Implant Stem Hip Colr Std 2 - [id number] Implanted:Qty: 1 on 09/05/2023 by Ranjeet Chowdhury Jr., MD at OR [facility] Right: Hip TONI : ORTHOPAEDICS 03/13/2027 2772-8918 / / [id number] Mdm X3 Inser Liner 22x44 - [id number] Implanted:Qty: 1 on 09/05/2023 by [place] Nunez, Ranjeet Drake MD at [facility] Right: Hip TONI : ORTHOPAEDICS 09/15/2027 7236-2-244 / / [id number] documented as of this encounter Visit Diagnoses [...] Agen t (per Health Care Power of Reconcilement Clerk document) Care Teams Slitter Cut Off Operator Relationship Specialty Start Date End Date Yamini Piper MD [address] [place] [address] PCP - General Internal Medicine 05/03/18 documented as of this encounter
--- OUTSIDE RECORDS SUMMARY | 2023-12-09 13:15 | External Medical Summary | Summary of Care ---
Author Name Unknown Organization [facility] Address [address] [place] [address] Phone [phone] Care Team Providers Care Diagram Clerk Name Role Phone Yamini Piper MD Primary Care Provider [phone] Reason for Visit * Reason Onset Date Comments Medication Question 12/08/2023 Encounter Details Date Type Department Care Team (Late st Contact Info) Description 12/08/2023 Telephone General Internal Medicine [facility] 200 [place] [address] Yamini Piper MD 200 [place] [address] Medication Question Allergies Active Allergy Reactions Criticality [...] [facility] [place] DET[place] Study: Project # [id number], Dowel Machine Operator: Eric Magana, PhD. SUMMARY: Goal: [...] contact study staff at ; after hours Dowel Machine Operator via the [facility] hospital inner tube tuber machine operator . Please contact study team before resolving/deleting from patients problem list. Study phone number: [phone]. Diagnosis changed due to Research Module. Go to Snapshot for study details. Encounter for examination fo r normal comparison and control in clinical research program 07/26/2017 10/28/2021 Overview: DO NOT DELETE - [facility] Study: Project # [id number], Dowel Machine Operator: Jordan Umana, MS, MPH. SUMMARY: [...] contact study staff at ; after hours Dowel Machine Operator via the [facility] inner tube tuber machine operator . - Please contact study team before resolving/deleting from patients problem list. Study phone number: [phone]. Diagnosis changed due to Research Module. Go [...] encounter Miscellaneous Notes * Telephone Encounter - Herberth Senior MD - 12/09/2023 8:49 AM EDT Pt currently in ER * Telephone Encounter - Gisell Bertrand LPN - 12/09/2023 8:18 AM EDT Called to discuss with patient, states that she is in the ER currently. States she has bloody stool. Did not cotton picker medication as was not authorized. Did advise [...] still an issue with RX. I called Cahry Louis advised the Vancomycin needs a prior auth. Do you want a prior auth completed or send a different medication? Please advise. * Telephone Encounter - Russel Self LPN - 12/08/2023 10:56 AM EDT Patient calling today. She is at [facility] to cotton picker Vancomycin and pharmacist needs Sig clarified. 14 or 7 days? "Sig - Route: Take 1 Capsule by mouth every 6 hours for 14 days. For 7 days" Per order disp 56=14 days [facility] pharmacy made aware. FYI documented in this encounter Plan of Treatment Upcoming Encounters Date Type Department Care Team (Late st Contact Info) Description 01/02/2024 9:00 AM EST Office Visit General Internal Medicine [facility] 200 [facility] [place] [address] Yamini Piper MD 200 [facility] [place] [address] 02/01/2024 10:00 AM EST Cardiac Studies Cardiology, [facility] 132 [place] [address] [place], Pacer Clinic [facility] 132 [place] [address] 02/16/2024 8:00 AM EST Office Visit Gastroenterology, [facility] 132 [facility] [place] [address] Cody Bedolla CRNP 132 [facility] [place] [address] 03/25/2024 10:30 AM EST Office Visit Orthopaedics, [place] [address] [place], [place] [id number] [place]on Nunez, Ranjeet Drake MD [address] [place], [place] [id number] Scheduled Procedures Name Priority Associated Diagnoses Date/Ti [...] this encounter Medical Devices Implanted Type Area Chalk Tester Device Identifier Shelf Expiration Date Model / Serial / Lot Plate Lcp Pilon 3.5 7h 240.082 - [id number] Implanted:Qty: 1 on 09/05/2023 by Ranjeet Chowdhury Jr., MD at OR [facility] Right: Pelvis SYNTHES 240.082 / / Hip Head V40 Taper C C 222 0 - [id number] Implanted:Qty: 1 on 09/05/2023 by Ranjeet Chowdhury Jr., MD at OR [facility] Right: Hip TONI : ORTHOPAEDICS 07/09/2028 6260-4-122 / / [id number] Screw Selftap 3.5x36 204.836 - [id number] Implanted:Qty: 2 on 09/05/2023 by Ranjeet Chowdhury Jr., MD at OR [facility] Right: Pelvis SYNTHES 204.836 / / Screw Selftap 3.5x20 204.820 - [id number] Implanted:Qty: 2 on 09/05/2023 by Ranjeet Chowdhury Jr., MD at OR [facility] Right: Pelvis SYNTHES 204.820 / / Implant Hip Acetab Shell 50d - [id number] Implanted:Qty: 1 on 09/05/2023 by Ranjeet Chowdhury Jr., MD at OR [facility] Right: Hip TONI : ORTHOPAEDICS 11/28/2026 709-04-50D / / [id number] Screw Low Profile 6.1yut83is - [id number] Implanted:Qty: 1 on 09/05/2023 by Ranjeet Chowdhury Jr., MD at OR [facility] Right: Hip TONI : ORTHOPAEDICS 04/05/2028 9952-4527 / / GDBJ Screw Low Profile 6.1vgf38nz - [id number] Implanted:Qty: 1 on 09/05/2023 by Ranjeet Chowdhury Jr., MD at OR [facility] Right: Hip TONI : ORTHOPAEDICS 04/03/2028 3109-2905 / / GBCA Hip Liner Mdm Cocr 38 D - [id number] Implanted:Qty: 1 on 09/05/2023 by Ranjeet Chowdhury Jr., MD at OR [facility] Right: Hip TONI : ORTHOPAEDICS 07/24/2028 626-00-38D / / [id number] Implant Stem Hip Colr Std 2 - [id number] Implanted:Qty: 1 on 09/05/2023 by Ranjeet Chowdhury Jr., MD at OR [facility] Right: Hip TONI : ORTHOPAEDICS 03/13/2027 3435-0832 / / [id number] [facility] X3 [facility] Liner 22x44 - [id number] Implanted:Qty: 1 on 09/05/2023 by Ranjeet Chowdhury Jr., MD at OR [facility] Right: Hip TONI : ORTHOPAEDICS 09/15/2027 7236-2-244 / / [id number] documented as of this encounter Visit Diagnoses [...] t (per Health Care Power of Auto Body Mechanic document) Care Teams Diagram Clerk Relationship Specialty Start Date End Date Yamini Piper MD 200 [facility] [place] [address] PCP - General Internal Medicine 05/03/18 documented as of this encounter
--- NOTE | 2023-12-09 13:16 | Ultrasound Report ---
BILATERAL LOWER EXTREMITY VENOUS DOPPLER HISTORY: Acute pain and swelling of the lower legs . History of DVT within the right popliteal, poste rior tibial and peroneal veins and also within the left peroneal veins. Recent BLE DVTs in September COMPARISON STUDY: 10/16/2023, 10/11/2023. FINDINGS: Partially occlusive thrombi within the right posterior tibial and peroneal veins appears chronic. Fin dings have likely improved from prior. No definite acute DVT identified. Partially occlusive thrombi within the left posterior tibial and peroneal veins with slow venous flow from the popliteal vein. No definite acute DVT identified. IMPRESSION: 1. 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 2. No definite acute occlusive DVT identified. ACT 112: Negative or not required by law. Electronically signed by: Davis Winkler M.D. 12/09/2023 1:14 PM
--- OUTSIDE RECORDS SUMMARY | 2023-12-09 13:16 | External Medical Summary | Summary of Care ---
Author Name Unknown Organization [facility] Address [address] [place] [address] Phone [phone] Care Team Providers Care Paint Roller Winder Name Role Phone Yamini Piper MD Primary Care Provider [phone] Reason for Visit * Reason Onset Date Comments Medication Question 12/08/2023 Encounter Details Date Type Department Care Team (Late st Contact Info) Description 12/08/2023 Telephone General Internal Medicine [facility] 200 [place] [address] Yamini Piper MD 200 [place] [address] Medication Question Allergies Active Allergy Reactions Criticality [...] DELETE [facility] DETECT Study: Project # [id number], Laundry Or Dry Cleaners Counter Clerk: Eric Magana, PhD. SUMMARY: Goal: Establish test [...] contact study staff at ; after hours Laundry Or Dry Cleaners Counter Clerk via the [facility] hospital field laboratory operator . Please contact study team before resolving/deleting from patients problem list. Study phone number: [phone]. Diagnosis changed due to Research Module. Go to Snapshot for study details. Encounter for examination fo r normal comparison and control in clinical research program 07/26/2017 10/28/2021 Overview: DO NOT DELETE - [facility] Study: Project # [id number], Laundry Or Dry Cleaners Counter Clerk: Jordan Umana, MS, MPH. SUMMARY: Goal: Establish [...] contact study staff at ; after hours Laundry Or Dry Cleaners Counter Clerk via the [facility] field laboratory operator . - Please contact study team before resolving/deleting from patients problem list. Study phone number: [phone]. Diagnosis changed due to Research Module. Go [...] States she has bloody stool. Did not quill picking machine operator medication as was not authorized. * Addendum Note - Yamini Piper MD [...] Pt calling she just spoke with [facility], she was advised there is still an issue with RX. I called [facility] rodríguez, Chary advised the Vancomycin needs a prior auth. Do you want a prior auth completed or send a different medication? Please advise. * Telephone Encounter - Russel Self LPN - 12/08/2023 10:56 AM EDT [facility] machine operator Vancomycin and pharmacist needs Sig clarified. 14 or 7 days? "Sig - Route: Take 1 Capsule by mouth every 6 hours for 14 days. For 7 days" Per order disp 56=14 days [facility] pharmacy made aware. FYI documented in this encounter Plan of Treatment Upcoming Encounters Date Type Department Care Team (Late st Contact Info) Description 01/02/2024 9:00 AM EST Office Visit General Internal Medicine [facility] 200 [facility] [place], [place] [address] Yamini Piper MD 200 [facility] [place] [address] 02/01/2024 10:00 AM EST Cardiac Studies Cardiology, [facility] [address] [place] [address] [facility] [address] [place] [address] 02/16/2024 8:00 AM EST Office Visit Gastroenterology, [facility] [address] [place] [address] Cody Bedolla CRNP [address] [place] [address] 03/25/2024 10:30 AM EST Office Visit Orthopaedics, [place] [address] [place] [address] Ranjeet Chowdhury Jr., MD [address] [place], [place] [address] Scheduled Procedures Name Priority Associated Diagnoses Date/Ti me COLONOSCOPY FLEXIBLE PROXIMA L DIAGNOSTIC Recall History of colonic polyps Health Maintenance Due Date Last Done Comments Adult Wellness Visit 04/06/2022 04/06/2021 Influenza Vaccine (FLU shot) (#1) 2023 12/15/2022, 12/15/2022, 11/11/2021, Additional history exists Colonoscopy 09/15/2024 09/16/2019, 08/28, 01/17/2014, Additional history exists Depression Screening 12/07/2024 12/08/2023 HbA1c 12/07/2024 12/08/2023, 0409/2023, 12/12/2022, Additional history exists TSH 12/07/2024 12/08/2023, [...] this encounter Medical Devices Implanted Type Area Echocardiologist Device Identifier Shelf Expiration Date Model / Serial / Lot Plate Lcp Pilon 3.5 7h 240.082 - [id number] Implanted:Qty: 1 on 09/05/2023 by Ranjeet Chowdhury Jr., MD at OR [facility] Right: Pelvis SYNTHES 240.082 / / Hip Head V40 Taper C C 222 0 - [id number] Implanted:Qty: 1 on 09/05/2023 by Ranjeet Chowdhury Jr., MD at OR [facility] Right: Hip TONI : ORTHOPAEDICS 07/09/2028 6260-4-122 / / [id number] Screw Selftap 3.5x36 204.836 - [id number] Implanted:Qty: 2 on 09/05/2023 by Ranjeet Chowdhury Jr., MD at OR [facility] Right: Pelvis SYNTHES 204.836 / / Screw Selftap 3.5x20 204.820 - [id number] Implanted:Qty: 2 on 09/05/2023 by Ranjeet Chowdhury Jr., MD at OR [facility] Right: Pelvis SYNTHES 204.820 / / Implant Hip Acetab Shell 50d - [id number] Implanted:Qty: 1 on 09/05/2023 by Ranjeet Chowdhury Jr., MD at OR [facility] Right: Hip TONI : ORTHOPAEDICS 11/28/2026 709-04-50D / / [id number] Screw Low Profile 6.5btm09oi - [id number] Implanted:Qty: 1 on 09/05/2023 by Ranjeet Chowdhury Jr., MD at OR [facility] Right: Hip TONI : ORTHOPAEDICS 04/05/2028 7246-2009 / / GDBJ Screw Low Profile 6.1aqn47ck - [id number] Implanted:Qty: 1 on 09/05/2023 by Ranjeet Chowdhury Jr., MD at OR [facility] Right: Hip TONI : ORTHOPAEDICS 04/03/2028 7608-0699 / / GBCA Hip Liner Mdm Cocr 38 D - [id number] Implanted:Qty: 1 on 09/05/2023 by Ranjeet Chowdhury Jr., MD at OR [facility] Right: Hip TONI : ORTHOPAEDICS 07/24/2028 626-00-38D / / [id number] Implant Stem Hip Colr Std 2 - [id number] Implanted:Qty: 1 on 09/05/2023 by Ranjeet Chowdhury Jr., MD at OR [facility] Right: Hip TONI : ORTHOPAEDICS 03/13/2027 7834-4796 / / [id number] Mdm X3 Inser Liner 22x44 - [id number] Implanted:Qty: 1 on 09/05/2023 by Ranjeet Chowdhury Jr., MD at [facility] Right: Hip TONI : ORTHOPAEDICS 09/15/2027 7236-2-244 / / [id number] documented as of this encounter Visit Diagnoses [...] File Name Relationship Healthcare [facility] Erika Brandt Adult Child Health Care Agen t (per Health Care Power of Rn Icu document) Care Teams Paint Roller Winder Relationship Specialty Start Date End Date Yamini Piper MD [facility] [place] [address] PCP - General Internal Medicine 05/03/18 documented as of this encounter
[2023-12-09] MEDS ORDERED: ONDANSETRON INJ 2 MG/ML 2 ML VIAL IV PRN (13:24)
[2023-12-09] MEDS: FERROUS SULFATE 325 MG TAB PO STA (14:00)
[2023-12-09] MEDS: ATORVASTATIN 40 MG TAB PO STA (14:00)
[2023-12-09] MEDS: ACETAMINOPHEN 325 MG TAB PO PRN (20:00)
[2023-12-09] MEDS: FERROUS SULFATE 325 MG TAB PO SCH (20:02)
[2023-12-09] MEDS: POTASSIUM CHLORIDE CRTAB 20 MEQ TABCR PO SCH (20:06)
[2023-12-09 20:22] LABS: Basophils # (auto) 0.03 K/uL (0.00-0.20); Basophils % (auto) 0.5 %; Eosinophils # (auto) 0.15 K/uL (0.00-0.50); Eosinophils % (auto) 2.4 %; Hemoglobin 11.3 g/dl (12.0-16.0); Immature Granulocytes # (auto) 0.02 K/uL (0.01-0.20); Immature Granulocytes % (auto) 0.3 %; Lymphocytes % (auto) 9.6 %; Mean Corpuscular Hemoglobin 29.6 pg (25.0-34.0); Mean Corpuscular Hgb Conc 32.3 g/dL (32.0-36.0); Mean Corpuscular Volume 91.6 fL (80.0-100.0); Mean Platelet Volume 10.5 fL (9.4-12.4); Monocytes # (auto) 0.61 K/uL (0.11-0.59); Monocytes % (auto) 9.7 %; Neutrophils # (auto) 4.85 K/uL (1.40-6.50); Neutrophils % (auto) 77.5 %; Platelet Count 151 K/uL (130-400); RDW Coefficient of Variation 13.4 % (11.5-14.5); RDW Standard Deviation 45.5 fL (36.4-46.3); Red Blood Count 3.82 M/uL (4.20-5.40); White Blood Count 6.26 K/ul (4.8-10.8)
[2023-12-10 02:41] LABS: BUN Creatinine Ratio 13.8 (10-20); Calcium 8.3 mg/dl (8.6-10.3); Creatinine Clr Calc Pharmacy 67.2 ml/min; Magnesium 1.9 mg/dl (1.7-2.4); Phosphorus 3.9 mg/dl (2.5-4.9)
[2023-12-10 02:42] LABS: Hematocrit (blood only) 32.5 % (37.0-47.0); Hemoglobin 10.4 g/dl (12.0-16.0); Mean Corpuscular Hemoglobin 29.5 pg (25.0-34.0); Mean Corpuscular Volume 92.3 fL (80.0-100.0); Mean Platelet Volume 10.9 fL (9.4-12.4); Platelet Count 145 K/uL (130-400); RDW Coefficient of Variation 13.5 % (11.5-14.5); RDW Standard Deviation 45.6 fL (36.4-46.3); Red Blood Count 3.52 M/uL (4.20-5.40); White Blood Count 5.01 K/ul (4.8-10.8)
[2023-12-10] MEDS: POTASSIUM CHLORIDE CRTAB 20 MEQ TABCR PO STA (04:00)
[2023-12-10] MEDS: LEVOTHYROXINE SODIUM 88 MCG TABLET PO SCH (06:06)
[2023-12-10] MEDS: PRENATAL VITAMIN 1 TAB PO SCH (08:18)
[2023-12-10] MEDS: ATORVASTATIN 40 MG TAB PO SCH (08:19)
--- NOTE | 2023-12-10 09:40 | Gastrointestinal Consultation ---
Date of Consultation December 10, 2023 Assessment & Plan (1) C. difficile colitis: She has c. difficile colitis as diagnosed as an outpatient. I am certain her bleeding is related to the active inflammation in colon while on eliquis which has since been stopped. Agree with fidaxomicin as ordered. Should improve over the next 3-4 days. Does not need to stay hospitalized if she is at the point where she can go home without having accidents. History of Present Illness Reason for Consultation: c. diff colitis Attending Physician: Chris Gil MD History of Present Illness 78 year old female known to me from admit with major UGI bleed related to duodenal ulcer. Apparently after all of that resolved she developed c.diff on October 27. She took vancomycin for ten days and improved. She developed diarrhea again a few days ago and was diagnosed as an outpatient with c. diff. Pharmacy would not fill her meds so she came to ED. She is still having diarrhea but feels well. She has been on eliquis due to blood clots found on hospitalization for c.diff. Allergies Allergy/AdvReac Type Severity Reaction Status Date / Time No Known Drug Allergies Allergy Unknown . Verified 09/27/23 22:40 Home Medications Medication Instructions Recorded Confirmed Type atorvastatin 40 mg tablet 40 mg PO DAILY 10/11/23 12/09/23 History omeprazole 40 mg capsule,delayed 40 mg PO BID 10/11/23 12/09/23 History release apixaban 5 mg tablet (Eliquis) 5 mg PO BID 12/09/23 12/09/23 History baclofen 10 mg tablet 10 mg PO HS PRN Pain 12/09/23 12/09/23 History ferrous sulfate 325 mg (65 mg 325 mg PO BID 12/09/23 12/09/23 History iron) tablet (FeroSul) levothyroxine 88 mcg tablet 88 mcg PO QAM 12/09/23 12/09/23 History vits no.124-ferrous fum 1 tab PO QAM 12/09/23 12/09/23 History 27 mg iron-folic acid 800 mcg tablet ( Vitamin) Patient History Medical History Osteoarthritis Migraine "flashing headaches" Syncope Asthma as a child/no problems now Surgical History History of open reduction and internal fixation (ORIF) procedure left tib/fib History of colonoscopy History of tooth extraction History of tonsillectomy History of cataract surgery rt eye Family History Mother Family history of diabetes mellitus Brother Family history of diabetes mellitus Other Family hx of colon cancer Social History Smoking Status: Never smoker Second Hand Exposure: No; Do You Dip or Chew Tobacco: No; Tobacco Cessation Education Requested by Patient: No Hx Alcohol Use: No Hx Substance Use: No Preferred Language: Belarusian Communication Ability: Effective Business Services Coordinator Required: No Beliefs That Will Affect Care: None Current Living Situation: Alone Current Living Situation Comment: lives on own but currently with daughter and family Other Information That Helps Us Care for You: No Feels Safe at Home: Yes Safety Concerns: Feels Safe At This Time Assistive Devices: Cane, Glasses and Hearing Aid - Bilateral Review of Systems Review of Systems: All systems reviewed & are unremarkable except as noted in HPI & below Physical Exam Physical Exam: Very pleasant, in no distress Constitutional: WD/WN, vitals as above Neck: trachea midline, no thyromegaly Respiratory: normal respiratory effort, lungs clear to auscultation Cardiovascular: RRR, no murmur, no edema Gastrointestinal (Abdomen): Inspection/Auscultation: abdomen normal to inspection and normal bowel sounds Percussion/Palpation: + abdomen tender (suprapubic region) and abdomen soft; no hepatosplenomegaly Musculoskeletal: Extremities: extremities normal to inspection Results & Data Vital Signs (Past 12 Hours) Vital Signs Temp Pulse Pulse Resp BP Pulse Ox O2 Del Method 12/10/23 08:24 Room Air 12/10/23 08:00 37.0 C 80 18 113/71 95 Room Air 12/10/23 07:19 74 12/10/23 04:00 36.7 C 73 16 115/65 96 Room Air 12/09/23 22:58 37.1 C 82 16 105/61 95 Room Air 12/09/23 22:00 82 Laboratory Results 12/10/23 12/10/23 12/09/23 Range/Units 07:41 02:00 20:08 WBC 5.01 6.26 (4.8-10.8) K/ul RBC 3.52 L 3.82 L (4.20-5.40) M/uL Hgb 10.4 L 11.3 L (12.0-16.0) g/dl Hct 32.5 L 35.0 L (37.0-47.0) % MCV 92.3 91.6 (80.0-100.0) fL MCH 29.5 29.6 (25.0-34.0) pg MCHC 32.0 32.3 (32.0-36.0) g/dL RDW Std Deviation 45.6 45.5 (36.4-46.3) fL RDW Coeff of Anitha 13.5 13.4 (11.5-14.5) % Plt Count 145 151 (130-400) K/uL MPV 10.9 10.5 (9.4-12.4) fL Immature Gran % (Auto) 0.3 % Neut % (Auto) 77.5 % Lymph % (Auto) 9.6 % [place] % (Auto) 9.7 % Eos % (Auto) 2.4 % Baso % (Auto) 0.5 % Neut # (Auto) 4.85 (1.40-6.50) K/uL Lymph # (Auto) 0.60 L (1.20-3.40) K/uL [place] # (Auto) 0.61 H (0.11-0.59) K/uL Eos # (Auto) 0.15 (0.00-0.50) K/uL Baso # (Auto) 0.03 (0.00-0.20) K/uL Immature Gran # (Auto) 0.02 (0.01-0.20) K/uL Sodium 138 (136-145) mmol/L Potassium 3.0 L (3.5-5.1) mmol/L Chloride 108 H (98-107) mmol/L Carbon Dioxide 23 (21-32) mmol/L Anion Gap 7 (3-11) BUN 8 (6-23) mg/dl Creatinine 0.58 L (0.6-1.2) mg/dl Est Cr Clr Drug Dosing 67.2 ml/min eGFR 93.15 BUN/Creatinine Ratio 13.8 (10-20) Glucose 80 (70-99(Fasting)) mg/dl Calcium 8.3 L (8.6-10.3) mg/dl Phosphorus 3.9 (2.5-4.9) mg/dl Magnesium 1.9 (1.7-2.4) mg/dl Troponin I High Sens 15.9 H 15.3 H 16.6 H (0-14) pg/ml Antibody Identification Antibody ID Comment 12/09/23 12/09/23 Range/Units 14:14 08:24 WBC (4.8-10.8) K/ul RBC (4.20-5.40) M/uL Hgb (12.0-16.0) g/dl Hct (37.0-47.0) % MCV (80.0-100.0) fL MCH (25.0-34.0) pg MCHC (32.0-36.0) g/dL RDW Std Deviation (36.4-46.3) fL RDW Coeff of Anitha (11.5-14.5) % Plt Count (130-400) K/uL MPV (9.4-12.4) fL Immature Gran % (Auto) % Neut % (Auto) % Lymph % (Auto) % [place] % (Auto) % Eos % (Auto) % Baso % (Auto) % Neut # (Auto) (1.40-6.50) K/uL Lymph # (Auto) (1.20-3.40) K/uL [place] # (Auto) (0.11-0.59) K/uL Eos # (Auto) (0.00-0.50) K/uL Baso # (Auto) (0.00-0.20) K/uL Immature Gran # (Auto) (0.01-0.20) K/uL Sodium (136-145) mmol/L Potassium (3.5-5.1) mmol/L Chloride (98-107) mmol/L Carbon Dioxide (21-32) mmol/L Anion Gap (3-11) BUN (6-23) mg/dl Creatinine (0.6-1.2) mg/dl Est Cr Clr Drug Dosing ml/min eGFR BUN/Creatinine Ratio (10-20) Glucose (70-99(Fasting)) mg/dl Calcium (8.6-10.3) mg/dl Phosphorus (2.5-4.9) mg/dl Magnesium (1.7-2.4) mg/dl Troponin I High Sens 15.6 H (0-14) pg/ml Antibody Identification Anti-Jka Antibody ID Comment Diagnostic Findings Abdomen/Pelvis CT 12/09/23 08:[address] WITH IV CONTRAST CT DOSE: 710.97 mGy.cm HISTORY: Acute onset abdominal pain with GI bleed GIB TECHNIQUE: Multiaxial CT images of the abdomen and pelvis were performed following the IV administration of 94 cc of Optiray, A dose lowering technique was utilized adhering to the principles of ALARA. COMPARISON STUDY: 10/12/2023 FINDINGS: Cardiomegaly with partially imaged pacer leads. Low suspicion 4 mm solid nodule in the basal left lower lobe on image 20 series 3. No pneumatosis or pneumoperitoneum. Unremarkable spleen, pancreas, gallbladder and adrenal glands. There are a few small scattered hypodensities of the liver suggestive of probable cysts. Patency of the hepatic and portal veins. Urinary bladder wall thickening with partial distention. Mild bilateral hydronephrosis, right greater than left. No urolith. Atherosclerosis of the aorta and branch vessels. No lymphadenopathy identified. No small bowel obstruction. There is mucosal hyperemia of circumferential wall thickening involving the majority of the colon and rectum, most pronounced in the rectum and sigmoid. Normal appendix. Similar findings were also present on the prior study. Scattered colonic air-fluid levels. Degenerative changes of the spine, pelvis and left hip. Right hip arthroplasty. IMPRESSION: 1. Findings compatible with a nonspecific oneill-proctocolitis, likely infectious or inflammatory. Similar findings were also present on the 10/12/2023 study.. 2. No bowel obstruction or pneumoperitoneum. 3. Mild bilateral hydronephrosis with findings suspicious for cystitis. 4. No renal or ureteral calculi. ACT 112: Negative or not required by law. The above report was generated using voice recognition software. It may contain grammatical, syntax or spelling errors. Electronically signed by: Davis Winkler M.D. 12/09/2023 9:46 AM Chest X-Ray 12/09/23 08:03 XR chest 1V portable HISTORY: 78 years-old Female GIB acute chest abdominal pain with GI bleed COMPARISON: 823 TECHNIQUE: AP view of the chest FINDINGS: Cardiac silhouette is normal in size. The left subclavian pacer. No pneumothorax, pleural effusion or airspace consolidation. The bones of the chest appear grossly intact. IMPRESSION: No acute process. ACT 112: Negative or not required by law. The above report was generated using voice recognition software. It may contain grammatical, syntax or spelling errors. Electronically signed by: Davis Winkler M.D. 12/09/2023 8:44 AM Venous Doppler Study 12/09/23 10:26 BILATERAL LOWER EXTREMITY VENOUS DOPPLER HISTORY: Acute pain and swelling of the lower legs . History of DVT within the right popliteal, posterior tibial and peroneal veins and also within the left peroneal veins. Recent BLE DVTs in September COMPARISON STUDY: 10/16/2023, 10/11/2023. FINDINGS: Partially occlusive thrombi within the right posterior tibial and peroneal veins appears chronic. Findings have likely improved from prior. No definite acute DVT identified. Partially occlusive thrombi within the left posterior tibial and peroneal veins with slow venous flow from the popliteal vein. No definite acute DVT identified. IMPRESSION: 1. 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 2. No definite acute occlusive DVT identified. ACT 112: Negative or not required by law. Electronically signed by: Davis Winkler M.D. 12/09/2023 1:14 PM
--- NOTE | 2023-12-10 12:36 | Electrocardiogram Report ---
Test Reason : Blood Pressure : */* mmHG Vent. Rate : 78 BPM Atrial Rate : 78 BPM P-R Int : 148 ms QRS Dur : 100 ms QT Int : 398 ms P-R-T Axes : 72 42 52 degrees QTcB Int : 453 ms Normal sinus rhythm Incomplete right bundle branch block Abnormal ECG When compared with ECG of 09-Dec-2023 08:30, No significant change was found Confirmed by Pacheco Lindsey ([id number]) on 12/10/2023 12:36:16 PM Referred By: REFERRED SELF Confirmed By: Pacheco Lindsey
--- NOTE | 2023-12-10 13:06 | Hospitalist Progress Note ---
Date of Service December 10, 2023 Assessment & Plan (1) C. difficile colitis: (2) Acute lower GI bleeding: (3) Anemia associated with acute blood loss: Plan Beth Brandt is a 78y/o F with PMHx significant for acquired hypothyroidism, hyperlipidemia, prediabetes, DVT of bilateral lower extremities [09/2023 - on Eliquis], bilateral carotid artery stenosis, SSS s/p pacemaker placement, duodenal ulcer perforation, retroperitoneal hemorrhage, C. difficile colitis, history of acute blood loss anemia and asthma who presented to the ED for evaluation secondary to bloody stools. Recurrent C. difficile infection C. difficile colitis Lower GI bleed Hemoglobin 11.6 on presentation. No leukocytosis. CTAP on admission showed findings compatible with a nonspecific oneill- proctocolitis. CTAP also showed mild bilateral hydronephrosis with findings suspicious for cystitis however UA was negative for infection and patient is without any urinary complaints. Started on Dificid for recurrent C.diff infection. GI agrees with the plan Full liquid diet Monitor CBC; transfuse if Hb less than 7 Hypokalemia: K+ 2.6 on presentation, likely secondary to GI losses. started on supplement Elevated Troponin: Initial troponin was 16 on presentation, repeat troponin was 15.6 at 14:14. Patient without chest pain, likely elevated secondary to infection. Chronic BLE DVTs: Patient was recently confined here at [facility] on 10/11/2023-10/16/2023 with C. difficile colitis and completed a 10-day course of oral vancomycin. She was also diagnosed with acute BLE DVTs during that admission. She had to be treated with IV heparin and then was transitioned to oral Eliquis at time of discharge. She is to complete a 3-month course of Eliquis. BLE venous Doppler ultrasound in the ED showed chronic bilateral DVT - findings have likely improved from prior study; no acute DVT identified. Will hold Eliquis for now in setting of active lower GI bleeding. However, if her hemoglobin remains stable, plan to restart anticoagulation as soon as possible. Other Chronic Medical Conditions: HLD, hypothyroidism --> Can continue the medications for these specific conditions. Home PPI on hold for now ISO C. difficile colitis infection. DVT Prophylaxis: [employer] Eliquis on hold for now ISO active lower GI bleeding. Will proceed with TEDs for now. Code Status: FULL CODE PCP: Yamini Piper MD Disposition: Patient needs close monitoring for C. difficile colitis and lower GI bleed inpatient. Time spent evaluating patient, direct bedside care, chart review, placing orders, interpretation of diagnostic studies, discussion with consultants, patient, and family members, as well as other required patient management activities is 50 minutes Please note the above document was generated using voice recognition software. It may contain grammatical, syntax or spelling errors. Any formal questions or concerns about the content, text or information contained within the body of this dictation should be directly addressed to the provider for clarification Admission and Anticipated Discharge Date Admission Date: December 09, 2023 Subjective Patient seen and examined at bedside. She reports feeling slightly better overall compared to yesterday Reports that her stools are still loose and is going to the bathroom every 2-3 hours Review of Systems Review of Systems: All systems reviewed & are unremarkable except as noted in Subjective Physical Exam Physical Exam: Constitutional: Alert oriented x 3; not in distress. Respiratory: normal respiratory effort, lungs clear to auscultation, no wheeze, rales, rhonchi. Normal insp/exp effort, no accessory muscle use Cardiovascular: RRR, no murmur, no edema Vessels: no JVD or carotid bruit Chest: normal inspection of chest Abdomen:soft, non-tender Musculoskeletal: no cyanosis or clubbing, extremities motor strength 5/5 Skin: no rashes, warm and dry normal turgor Neurologic: PERRL, EOMI, accommodation nl, no face palsy, no dysarthria CN's II- XI intact bilaterally and moves all extremities Psychiatric: A+Ox3, euthymic affect Results & Data Results & Data Vital Signs (Past 12 Hours) Vital Signs Temp Pulse Pulse Resp BP Pulse Ox O2 Del Method 12/10/23 11:16 37.0 C 78 20 132/76 98 Room Air 12/10/23 08:24 Room Air 12/10/23 08:00 37.0 C 80 18 113/71 95 Room Air 12/10/23 07:19 74 12/10/23 04:00 36.7 C 73 16 115/65 96 Room Air
[2023-12-10 13:41] LABS: Basophils # (auto) 0.04 K/uL (0.00-0.20); Basophils % (auto) 0.9 %; Eosinophils # (auto) 0.29 K/uL (0.00-0.50); Eosinophils % (auto) 6.9 %; Hematocrit (blood only) 35.2 % (37.0-47.0); Hemoglobin 11.4 g/dl (12.0-16.0); Immature Granulocytes # (auto) 0.02 K/uL (0.01-0.20); Immature Granulocytes % (auto) 0.5 %; Lymphocytes % (auto) 16.6 %; Mean Corpuscular Hemoglobin 29.9 pg (25.0-34.0); Mean Corpuscular Hgb Conc 32.4 g/dL (32.0-36.0); Mean Corpuscular Volume 92.4 fL (80.0-100.0); Mean Platelet Volume 10.9 fL (9.4-12.4); Monocytes # (auto) 0.41 K/uL (0.11-0.59); Monocytes % (auto) 9.7 %; Neutrophils # (auto) 2.76 K/uL (1.40-6.50); Neutrophils % (auto) 65.4 %; Platelet Count 146 K/uL (130-400); RDW Coefficient of Variation 13.4 % (11.5-14.5); RDW Standard Deviation 45.4 fL (36.4-46.3); Red Blood Count 3.81 M/uL (4.20-5.40); White Blood Count 4.22 K/ul (4.8-10.8)
[2023-12-11] MEDS ORDERED: Heparin IV Adult Wt-Based Standard *NO* INITIAL Bolus Protocol IV SCH (07:37)
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
[2023-12-11 09:09] LABS: Basophils # (auto) 0.04 K/uL (0.00-0.20); Eosinophils # (auto) 0.27 K/uL (0.00-0.50); Eosinophils % (auto) 6.7 %; Hematocrit (blood only) 34.4 % (37.0-47.0); Hemoglobin 11.5 g/dl (12.0-16.0); Immature Granulocytes # (auto) 0.01 K/uL (0.01-0.20); Immature Granulocytes % (auto) 0.2 %; Lymphocytes # (auto) 0.63 K/uL (1.20-3.40); Lymphocytes % (auto) 15.6 %; Mean Corpuscular Hemoglobin 30.3 pg (25.0-34.0); Mean Corpuscular Hgb Conc 33.4 g/dL (32.0-36.0); Mean Corpuscular Volume 90.5 fL (80.0-100.0); Mean Platelet Volume 10.6 fL (9.4-12.4); Monocytes # (auto) 0.35 K/uL (0.11-0.59); Monocytes % (auto) 8.7 %; Neutrophils # (auto) 2.74 K/uL (1.40-6.50); Neutrophils % (auto) 67.8 %; Platelet Count 141 K/uL (130-400); RDW Coefficient of Variation 13.4 % (11.5-14.5); RDW Standard Deviation 45.1 fL (36.4-46.3); White Blood Count 4.04 K/ul (4.8-10.8)
[2023-12-11] MEDS: HEPARIN SODIUM/DEXTROSE 25,000 UNITS/500 ML BAG IV SCH (09:09)
[2023-12-11 09:50] LABS: INR 0.9 (0.9-1.1); Partial Thromboplastin Time 27 Seconds (21-31); Prothrombin Time 10.3 Seconds (9.0-12.0)
[2023-12-11] MEDS: VANCOMYCIN HCL 125 MG/2.5ML SOLN PO SCH (13:16)
[2023-12-11] MEDS: CHERRY SYRUP 5 ML UDP PO SCH (13:16)
--- NOTE | 2023-12-11 13:18 | Hospitalist Progress Note ---
Date of Service December 11, 2023 Assessment & Plan (1) C. difficile colitis: (2) Acute lower GI bleeding: (3) Anemia associated with acute blood loss: Plan Beth Brandt is a 78y/o F with PMHx significant for acquired hypothyroidism, hyperlipidemia, prediabetes, DVT of bilateral lower extremities [09/2023 - on Eliquis], bilateral carotid artery stenosis, SSS s/p pacemaker placement, duodenal ulcer perforation, retroperitoneal hemorrhage, C. difficile colitis, history of acute blood loss anemia and asthma who presented to the ED for evaluation secondary to bloody stools. Recurrent C. difficile infection C. difficile colitis Lower GI bleed Hemoglobin 11.6 on presentation. No leukocytosis. CTAP on admission showed findings compatible with a nonspecific oneill- proctocolitis. CTAP also showed mild bilateral hydronephrosis with findings suspicious for cystitis however UA was negative for infection and patient is without any urinary complaints. Patient was started on Dificid. Prescription was sent; however it was very expensive (1400$). Discussed with GI and patient. Plan to place her on taper dose of oral vancomycin. Monitor for bleeding Diet advanced to low fiber Hypokalemia: K+ 2.6 on presentation, likely secondary to GI losses. started on supplement Elevated Troponin: Initial troponin was 16 on presentation, repeat troponin was 15.6 at 14:14. Patient without chest pain, likely elevated secondary to infection. Chronic BLE DVTs: Patient was recently confined here at [facility] on 10/11/2023-10/16/2023 with C. difficile colitis and completed a 10-day course of oral vancomycin. She was also diagnosed with acute BLE DVTs during that admission. She had to be treated with IV heparin and then was transitioned to oral Eliquis at time of discharge. She is to complete a 3-month course of Eliquis. BLE venous Doppler ultrasound in the ED showed chronic bilateral DVT - findings have likely improved from prior study; no acute DVT identified. Will hold Eliquis for now in setting of active lower GI bleeding. Restarted on heparin. If hemoglobin remains stable with no further signs of bleeding; plan to switch over to Eliquis. Other Chronic Medical Conditions: HLD, hypothyroidism --> Can continue the medications for these specific conditions. Home PPI on hold for now ISO C. difficile colitis infection. 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 on iv heparin Code Status: FULL CODE PCP: Yamini Piper MD Disposition: Patient needs close monitoring for C. difficile colitis and lower GI bleed inpatient. Time spent evaluating patient, direct bedside care, chart review, placing orders, interpretation of diagnostic studies, discussion with consultants, patient, and family members, as well as other required patient management activities is 50 minutes Please note the above document was generated using voice recognition software. It may contain grammatical, syntax or spelling errors. Any formal questions or concerns about the content, text or information contained within the body of this dictation should be directly addressed to the provider for clarification Admission and Anticipated Discharge Date Admission Date: December 09, 2023 Subjective Patient seen and examined at bedside. She reports improvement in her symptoms; reports that the bleeding has stopped and she has yellow stools Abdominal cramping and headache has also improved No significant events overnight Review of Systems Review of Systems: All systems reviewed & are unremarkable except as noted in Subjective Physical Exam Physical Exam: Constitutional: Alert oriented x 3; not in distress. Respiratory: normal respiratory effort, lungs clear to auscultation, no wheeze, rales, rhonchi. Normal insp/exp effort, no accessory muscle use Cardiovascular: RRR, no murmur, no edema Vessels: no JVD or carotid bruit Chest: normal inspection of chest Abdomen:soft, non-tender Musculoskeletal: no cyanosis or clubbing, extremities motor strength 5/5 Skin: no rashes, warm and dry normal turgor Neurologic: PERRL, EOMI, accommodation nl, no face palsy, no dysarthria CN's II- XI intact bilaterally and moves all extremities Psychiatric: A+Ox3, euthymic affect Results & Data Results & Data Vital Signs (Past 12 Hours) Vital Signs Temp Pulse Pulse Resp BP BP Pulse Ox 12/11/23 11:53 36.6 C 71 16 113/72 97 12/11/23 08:31 12/11/23 08:11 36.8 C 77 18 120/75 96 12/11/23 07:16 80 12/11/23 03:05 36.8 C 71 16 118/70 96 O2 Del Method 12/11/23 11:53 Room Air 12/11/23 08:31 Room Air 12/11/23 08:11 Room Air 12/11/23 07:16 12/11/23 03:05 Room Air
[2023-12-11 16:29] LABS: ANTI-Xa, UFH(UnfractionatedHep 0.44 IU/ml (0.3-0.7)
[2023-12-11 18:32] LABS: Basophils # (auto) 0.05 K/uL (0.00-0.20); Hemoglobin 11.5 g/dl (12.0-16.0); Immature Granulocytes # (auto) 0.02 K/uL (0.01-0.20); Immature Granulocytes % (auto) 0.4 %; Lymphocytes # (auto) 1.09 K/uL (1.20-3.40); Lymphocytes % (auto) 21.7 %; Mean Corpuscular Hemoglobin 29.4 pg (25.0-34.0); Mean Corpuscular Hgb Conc 31.9 g/dL (32.0-36.0); Mean Corpuscular Volume 92.1 fL (80.0-100.0); Mean Platelet Volume 10.7 fL (9.4-12.4); Monocytes # (auto) 0.43 K/uL (0.11-0.59); Monocytes % (auto) 8.6 %; Neutrophils # (auto) 3.13 K/uL (1.40-6.50); Neutrophils % (auto) 62.3 %; Platelet Count 164 K/uL (130-400); RDW Coefficient of Variation 13.5 % (11.5-14.5); RDW Standard Deviation 45.6 fL (36.4-46.3); Red Blood Count 3.91 M/uL (4.20-5.40); White Blood Count 5.02 K/ul (4.8-10.8)
[2023-12-12 07:02] LABS: BUN Creatinine Ratio 13.6 (10-20); Calcium 8.9 mg/dl (8.6-10.3); Creatinine Clr Calc Pharmacy 66.1 ml/min; Potassium 4.2 mmol/L (3.5-5.1)
[2023-12-12 07:12] LABS: ANTI-Xa, UFH(UnfractionatedHep 0.63 IU/ml (0.3-0.7)
[2023-12-12 07:46] LABS: Hematocrit (blood only) 35.8 % (37.0-47.0); Hemoglobin 11.6 g/dl (12.0-16.0); Mean Corpuscular Hemoglobin 29.5 pg (25.0-34.0); Mean Corpuscular Hgb Conc 32.4 g/dL (32.0-36.0); Mean Corpuscular Volume 91.1 fL (80.0-100.0); Mean Platelet Volume 11.5 fL (9.4-12.4); Platelet Count 149 K/uL (130-400); RDW Coefficient of Variation 13.2 % (11.5-14.5); RDW Standard Deviation 45.1 fL (36.4-46.3); Red Blood Count 3.93 M/uL (4.20-5.40); White Blood Count 4.46 K/ul (4.8-10.8)
[2023-12-12 08:20] LABS: Basophils # (auto) 0.09 K/uL (0.00-0.20); Echinocytes 1+; Eosinophils # (auto) 0.35 K/uL (0.00-0.50); Eosinophils % (auto) 7.8 %; Immature Granulocytes # (auto) 0.16 K/uL (0.01-0.20); Immature Granulocytes % (auto) 3.6 %; Lymphocytes # (auto) 1.28 K/uL (1.20-3.40); Lymphocytes % (auto) 28.7 %; Monocytes # (auto) 0.54 K/uL (0.11-0.59); Monocytes % (auto) 12.1 %; Neutrophils # (auto) 2.04 K/uL (1.40-6.50); Neutrophils % (auto) 45.8 %
--- NOTE | 2023-12-12 12:40 | Hospitalist Progress Note ---
Date of Service December 12, 2023 Assessment & Plan (1) C. difficile colitis: (2) Acute lower GI bleeding: (3) Anemia associated with acute blood loss: Plan Beth Brandt is a 78y/o F with PMHx significant for acquired hypothyroidism, hyperlipidemia, prediabetes, DVT of bilateral lower extremities [09/2023 - on Eliquis], bilateral carotid artery stenosis, SSS s/p pacemaker placement, duodenal ulcer perforation, retroperitoneal hemorrhage, C. difficile colitis, history of acute blood loss anemia and asthma who presented to the ED for evaluation secondary to bloody stools. Recurrent C. difficile infection C. difficile colitis Lower GI bleed Hemoglobin 11.6 on presentation. No leukocytosis. CTAP on admission showed findings compatible with a nonspecific oneill- proctocolitis. CTAP also showed mild bilateral hydronephrosis with findings suspicious for cystitis however UA was negative for infection and patient is without any urinary complaints. Patient was started on Dificid. Prescription was sent; however it was very expensive (1400$). Discussed with GI and patient. Plan to place her on taper dose of oral vancomycin. Prescription sent; affordable to the patient. Monitor for bleeding Diet advanced to low fiber Monitor for lower GI bleed. Hemoglobin currently stable around 11. Continue on heparin drip Chronic BLE DVTs: Patient was recently confined here at [facility] on 10/11/2023-10/16/2023 with C. difficile colitis and completed a 10-day course of oral vancomycin. She was also diagnosed with acute BLE DVTs during that admission. She had to be treated with IV heparin and then was transitioned to oral Eliquis at time of discharge. She is to complete a 3-month course of Eliquis. BLE venous Doppler ultrasound in the ED showed chronic bilateral DVT - findings have likely improved from prior study; no acute DVT identified. Will hold Eliquis for now in setting of active lower GI bleeding. Restarted on heparin. If hemoglobin remains stable with no further signs of bleeding; plan to switch over to Eliquis. Hypokalemia: K+ 2.6 on presentation, likely secondary to GI losses. started on supplement Elevated Troponin: Initial troponin was 16 on presentation, repeat troponin was 15.6 at 14:14. Patient without chest pain, likely elevated secondary to infection. 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 on iv heparin Code Status: FULL CODE PCP: Yamini Piper MD Disposition: Patient needs close monitoring for C. difficile colitis and lower GI bleed inpatient. Please note the above document was generated using voice recognition software. It may contain grammatical, syntax or spelling errors. Any formal questions or concerns about the content, text or information contained within the body of this dictation should be directly addressed to the provider for clarification Admission and Anticipated Discharge Date Admission Date: December 09, 2023 Subjective Patient seen and examined at bedside. She continues to have intermittent loose bowel movement with blood. Reports that the frequency has slightly decreased Hemoglobin has remained stable Review of Systems Review of Systems: All systems reviewed & are unremarkable except as noted in Subjective Physical Exam Physical Exam: Constitutional: Alert oriented x 3; not in distress. Respiratory: normal respiratory effort, lungs clear to auscultation, no wheeze, rales, rhonchi. Normal insp/exp effort, no accessory muscle use Cardiovascular: RRR, no murmur, no edema Vessels: no JVD or carotid bruit Chest: normal inspection of chest Abdomen:soft, non-tender Musculoskeletal: no cyanosis or clubbing, extremities motor strength 5/5 Skin: no rashes, warm and dry normal turgor Neurologic: PERRL, EOMI, accommodation nl, no face palsy, no dysarthria CN's II- XI intact bilaterally and moves all extremities Psychiatric: A+Ox3, euthymic affect Results & Data Results & Data Vital Signs (Past 12 Hours) Vital Signs Temp Pulse Pulse Resp BP Pulse Ox O2 Del Method 12/12/23 11:30 36.5 C 69 16 101/63 97 Room Air 12/12/23 07:59 36.7 C 68 16 123/72 96 Room Air 12/12/23 07:05 Room Air 12/12/23 07:01 66 12/12/23 02:29 36.6 C 75 18 131/71 95 Room Air
[2023-12-12 12:57] VITALS: RESP 18
[2023-12-13 06:22] LABS: Basophils # (auto) 0.06 K/uL (0.00-0.20); Basophils % (auto) 1.5 %; Eosinophils % (auto) 7.6 %; Hematocrit (blood only) 37.3 % (37.0-47.0); Hemoglobin 11.9 g/dl (12.0-16.0); Immature Granulocytes # (auto) 0.02 K/uL (0.01-0.20); Immature Granulocytes % (auto) 0.5 %; Lymphocytes # (auto) 1.37 K/uL (1.20-3.40); Lymphocytes % (auto) 34.6 %; Mean Corpuscular Hgb Conc 31.9 g/dL (32.0-36.0); Mean Corpuscular Volume 90.8 fL (80.0-100.0); Mean Platelet Volume 10.3 fL (9.4-12.4); Monocytes # (auto) 0.34 K/uL (0.11-0.59); Monocytes % (auto) 8.6 %; Neutrophils # (auto) 1.87 K/uL (1.40-6.50); Neutrophils % (auto) 47.2 %; Platelet Count 163 K/uL (130-400); RDW Coefficient of Variation 13.5 % (11.5-14.5); RDW Standard Deviation 45.1 fL (36.4-46.3); Red Blood Count 4.11 M/uL (4.20-5.40); White Blood Count 3.96 K/ul (4.8-10.8)
[2023-12-13 06:42] LABS: Calcium 9.4 mg/dl (8.6-10.3); Potassium 4.3 mmol/L (3.5-5.1)
[2023-12-13 06:45] LABS: ANTI-Xa, UFH(UnfractionatedHep 0.72 IU/ml (0.3-0.7)
[2023-12-13 13:04] LABS: ANTI-Xa, UFH(UnfractionatedHep 0.58 IU/ml (0.3-0.7)
[2023-12-13] MEDS ORDERED: VANCOMYCIN HCL 125 MG/2.5ML SOLN PO SCH (16:45)
[2023-12-13] MEDS ORDERED: CHERRY SYRUP 5 ML UDP PO SCH (16:45)
--- NOTE | 2023-12-13 16:59 | Hospitalist Progress Note ---
Date of Service December 13, 2023 Assessment & Plan (1) C. difficile colitis: (2) Acute lower GI bleeding: (3) Anemia associated with acute blood loss: Plan Beth Brandt is a 78y/o F with PMHx significant for acquired hypothyroidism, hyperlipidemia, prediabetes, DVT of bilateral lower extremities [09/2023 - on Eliquis], bilateral carotid artery stenosis, SSS s/p pacemaker placement, duodenal ulcer perforation, retroperitoneal hemorrhage, C. difficile colitis, history of acute blood loss anemia and asthma who presented to the ED for evaluation secondary to bloody stools. Recurrent C. difficile infection C. difficile colitis Lower GI bleed Hemoglobin 11.6 on presentation. No leukocytosis. CTAP on admission showed findings compatible with a nonspecific oneill- proctocolitis. CTAP also showed mild bilateral hydronephrosis with findings suspicious for cystitis however UA was negative for infection and patient is without any urinary complaints. Patient was started on Dificid. Prescription was sent; however it was very expensive (1400$). Discussed with GI and patient. Plan to place her on taper dose of oral vancomycin. Prescription sent; affordable to the patient. Monitor for bleeding Diet advanced to low fiber Monitor for lower GI bleed. Hemoglobin currently stable around 11. Continue on heparin drip Chronic BLE DVTs: Patient was recently confined here at [facility] on 10/11/2023-10/16/2023 with C. difficile colitis and completed a 10-day course of oral vancomycin. She was also diagnosed with acute BLE DVTs during that admission. She had to be treated with IV heparin and then was transitioned to oral Eliquis at time of discharge. She is to complete a 3-month course of Eliquis. BLE venous Doppler ultrasound in the ED showed chronic bilateral DVT - findings have likely improved from prior study; no acute DVT identified. Will hold Eliquis for now in setting of active lower GI bleeding. Restarted on heparin. If hemoglobin remains stable with no further signs of bleeding; plan to switch over to Eliquis. Hypokalemia: K+ 2.6 on presentation, likely secondary to GI losses. started on supplement Elevated Troponin: Initial troponin was 16 on presentation, repeat troponin was 15.6 at 14:14. Patient without chest pain, likely elevated secondary to infection. 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 on iv heparin Code Status: FULL CODE PCP: Yamini Piper MD Disposition: Patient needs close monitoring for C. difficile colitis and lower GI bleed inpatient. Please note the above document was generated using voice recognition software. It may contain grammatical, syntax or spelling errors. Any formal questions or concerns about the content, text or information contained within the body of this dictation should be directly addressed to the provider for clarification Admission and Anticipated Discharge Date Admission Date: December 09, 2023 Results & Data Results & Data Vital Signs (Past 12 Hours) Vital Signs Temp Pulse Pulse Resp BP Pulse Ox O2 Del Method 12/13/23 15:53 36.6 C 82 18 114/71 96 Room Air 12/13/23 14:40 77 12/13/23 11:07 36.4 C L 80 18 101/66 96 Room Air 12/13/23 07:19 36.7 C 70 18 102/63 94 Room Air 12/13/23 06:59 Room Air 12/13/23 06:55 68
--- NOTE | 2023-12-13 16:59 | Discharge Summary ---
Discharge Summary Date of Service December 13, 2023 Principal Dx & Hospital Course #1 = Principal Diagnosis (1) C. difficile colitis: (2) Acute lower GI bleeding: (3) Anemia associated with acute blood loss: Karen Brandt is a 78y/o F with PMHx significant for acquired hypothyroidism, hyperlipidemia, prediabetes, DVT of bilateral lower extremities [09/2023 - on Eliquis], bilateral carotid artery stenosis, SSS s/p pacemaker placement, duodenal ulcer perforation, retroperitoneal hemorrhage, C. difficile colitis, history of acute blood loss anemia and asthma who presented to the ED for evaluation secondary to bloody stools. Recurrent C. difficile infection C. difficile colitis Lower GI bleed Hemoglobin 11.6 on presentation. No leukocytosis. CTAP on admission showed findings compatible with a nonspecific oneill- proctocolitis. CTAP also showed mild bilateral hydronephrosis with findings suspicious for cystitis however UA was negative for infection and patient is without any urinary complaints. Patient was started on Dificid. Prescription was sent; however it was very expensive (1400$). Discussed with GI and patient. Plan to place her on taper dose of oral vancomycin. Prescription sent; affordable to the patient. Monitor for bleeding Diet advanced to low fiber Monitor for lower GI bleed. Hemoglobin currently stable around 11. Continue on heparin drip Chronic BLE DVTs: Patient was recently confined here at [facility] on 10/11/2023-10/16/2023 with C. difficile colitis and completed a 10-day course of oral vancomycin. She was also diagnosed with acute BLE DVTs during that admission. She had to be treated with IV heparin and then was transitioned to oral Eliquis at time of discharge. She is to complete a 3-month course of Eliquis. BLE venous Doppler ultrasound in the ED showed chronic bilateral DVT - findings have likely improved from prior study; no acute DVT identified. Will hold Eliquis for now in setting of active lower GI bleeding. Restarted on heparin. If hemoglobin remains stable with no further signs of bleeding; plan to switch over to Eliquis. Hypokalemia: K+ 2.6 on presentation, likely secondary to GI losses. started on supplement Elevated Troponin: Initial troponin was 16 on presentation, repeat troponin was 15.6 at 14:14. Patient without chest pain, likely elevated secondary to infection. 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 on iv heparin Code Status: FULL CODE PCP: Yamini Piper MD Disposition: Patient needs close monitoring for C. difficile colitis and lower GI bleed inpatient. Please note the above document was generated using voice recognition software. It may contain grammatical, syntax or spelling errors. Any formal questions or concerns about the content, text or information contained within the body of this dictation should be directly addressed to the provider for clarification Admission HPI Per Admitting Provider Beth Brandt is a 78y/o F with PMHx significant for acquired hypothyroidism, hyperlipidemia, prediabetes, DVT of bilateral lower extremities [09/2023 - on Eliquis], bilateral carotid artery stenosis, SSS s/p pacemaker placement, duodenal ulcer perforation, retroperitoneal hemorrhage, C. difficile colitis, history of acute blood loss anemia and asthma who presented to the ED for evaluation secondary to bloody stools. History obtained from patient and associated chart review. Patient was recently confined here at [facility] on 10/11/2023-10/16/2023 with C. difficile colitis and completed a 10-day course of oral vancomycin. She was also diagnosed with BLE DVTs during that admission. She had to be treated with IV heparin and then was transitioned to oral Eliquis at time of discharge. She ended up being discharged to [facility]. She is to complete a 3-month course of Eliquis. Prior to that, the patient was admitted under our service on 09/27/2023 with rectal bleed and was found to have a hemoglobin was 6.4 on presentation. In the ED, the patient had an unresponsive episode and repeat hemoglobin came back as 4.8 at that time --> she was transferred to the ICU and got 2 units of PRBCs urgently. Patient was s/p EGD which showed active bleeding in the duodenum postbulbar region which was difficult to treat. It ended up being treated with epi, cautery and finally one hemostatic [place] scientific clip was placed with success. GI recommended transfer to a tertiary center for IR if bleeding recur red. She was s/p a total of 5 units of PRBCs and 1 unit of cryoprecipitate. Her hemoglobin went up to 8.3 from 4.8, and then unfortunately it downtrended again to 6.9 and the ICU contacted [facility] for evaluation by IR and she was accepted in transfer --> patient was life flighted to [facility] on 09/29/2023. Imaging at [facility] showed a duodenal ulcer with visible vessel but no ongoing bleeding and micro perforation with local containment. She was also treated for sepsis due to ulcer perforation with Rocephin and Flagyl. Upper GI series on 10/03/2023 showed no evidence of duodenal leak but mild narrowing of the postbulbar duodenum at the level of the clip which was thought to be likely inflammatory. Patient was cleared for oral intake by surgery and tolerated a diet. PPN was discontinued on 10/04/2023. Patient was discharged to [facility] on October 05, 2023. Patient now with diarrhea every 2-3 hours and intermittent abdominal cramping for the past week. She had C. difficile testing done that was ordered by her PCP on 12/07/2023. This unfortunately did come back positive and a 2-week prescription for oral vancomycin was sent to her pharmacy. Patient however has not taken any of this antibiotic due to issues regarding insurance authorization. She reports that she had an episode of august bloody diarrhea this morning around 6AM which prompted her to come in for evaluation. Describes the blood in her stool this morning as bright red. She did not previously had any episodes of bloody diarrhea since this all started last Monday. No fevers but does endorse some chills. Some intermittent dizziness/lightheadedness but denies any recent falls or trauma. She has been eating a bland diet consisting of bananas, rice, apples and toast. Updated Medication List Medication Instructions Recorded Confirmed Type atorvastatin 40 mg tablet 40 mg PO DAILY 10/11/23 12/09/23 History omeprazole 40 mg capsule,delayed 40 mg PO BID 10/11/23 12/09/23 History release apixaban 5 mg tablet (Eliquis) 5 mg PO BID 12/09/23 12/09/23 History baclofen 10 mg tablet 10 mg PO HS PRN Pain 12/09/23 12/09/23 History ferrous sulfate 325 mg (65 mg 325 mg PO BID 12/09/23 12/09/23 History iron) tablet (FeroSul) levothyroxine 88 mcg tablet 88 mcg PO QAM 12/09/23 12/09/23 History vits no.124-ferrous fum 1 tab PO QAM 12/09/23 12/09/23 History 27 mg iron-folic acid 800 mcg tablet ( Vitamin) vancomycin 125 mg capsule 125 mg PO DIRECTED #95 caps 12/11/23 Rx (Vancocin) Hospital Stay Data Consultations 12/09/23 10:19 ED Decision to Admit Stat 12/09/23 13:24 Consult Gastroenterology Routine Diagnostic Imagining Performed 12/09/23 08:03 CT abd pelvis IV con only Stat 12/09/23 10:26 US venous doppler LE BI Routine Pending Results Patient Have Any Pending Studies at Discharge: No Discharge Instructions Given to Patient (Per Discharging Provider) PLEASE REFER TO YOUR NEW MEDICATION LIST AND FOLLOW INSTRUCTIONS CAREFULLY. YOUR NEW MEDICATIONS INCLUDE: Vancomycin- for treatment of C diff colitis Change Prilosec from twice a day to once a day. Drink plenty of water. Take a probiotic (renewLife brand recommended) and eat yogurt daily. Please inform your medical provider about your history of recurrent C diff colitis prior to prescribing antibiotics. PLEASE CALL YOUR PRIMARY CARE PHYSICIAN OR RETURN TO THE ER IF WITH WORSENING OF SYMPTOMS, INCLUDING diarrhea, abdominal pain, nausea/vomiting, fever/chills, etc FOLLOW UP WITH PRIMARY CARE PHYSICIAN OUTLINED ABOVE. FOLLOW UP WITH [employer]ELOPER IN 2-3 WEEKS.
[2023-12-13] MEDS: APIXABAN 5 MG TABLET PO ONE (18:00)
[2023-12-13 20:28] VITALS: BP 121/71; PULSE 87; TEMP 98.1; O2SAT 97
== END 2023-12-13 20:41 | disposition home health service (06) | DRG 372 ==
LOC: ED 07:39 → SUATTDRO 11:02 → 2W 11:02